=== PATIENT | female | born 1945 | race Caucasian/White ===

== ENCOUNTER 2017-01-04 08:47 | Inpatient (IN) | payer OTHER ==
[~2017-01-04 08:47] MED LIST: BUPIVACAINE 0.5% 30 ML SDV ONE
[2017-01-04] MEDS ORDERED: fentaNYL 250 MCG/5 ML INJ ONE (10:06)
[2017-01-04] MEDS ORDERED: MIDAZOLAM 2 MG/2 ML VIAL ONE (10:06)
[2017-01-04] MEDS ORDERED: PROPOFOL 200 MG/20 ML VIAL ONE (10:07)
[2017-01-04] MEDS ORDERED: LR 1,000 ML IV ONE (11:10)
[2017-01-04] MEDS ORDERED: LIDOCAINE 1% 5 ML SDV ID PRN (11:10)
[2017-01-04] MEDS ORDERED: cefOXitin SODIUM 2 GM in D5W 100 ML IV ONE (12:00)
--- NOTE | 2017-01-04 16:36 | POSTOPPROG ---
Post Op Note Date of Operation: 01/04/17 Surgeon: Kem Portillo Marine Consultant: Dr. Castanon Pre-op Diagnosis: Diverticulitis Post-op Diagnosis: Same, adhesions Procedure: Robotic LAR, Roselyn Inf/Abcess present in the surg proc area at time of surgery?: No Depth: Organ Space EBL: 50-100
[2017-01-04] MEDS ORDERED: fentaNYL 100 MCG/2 ML INJ ONE (16:42)
[2017-01-04] MEDS ORDERED: HYDROmorphONE/DILAUDID 1 MG/ML SYR ONE (16:55)
[2017-01-04] MEDS ORDERED: ONDANSETRON 4 MG/2 ML VIAL ONE ×2 (17:08→17:40)
[2017-01-04] MEDS: HYDROmorphONE/DILAUDID 1 MG/ML SYR IVP PRN ×2 (18:49→21:00)
[2017-01-04] MEDS: LR 1,000 ML IV SCH ×2 (19:30→21:54)
[2017-01-04] MEDS: cefOXitin SODIUM 1 GM in D5W 50 ML IV SCH (20:37)
[2017-01-04] MEDS: ONDANSETRON 4 MG/2 ML VIAL IVP PRN (21:07)
[2017-01-05] MEDS: cefOXitin SODIUM 1 GM in D5W 50 ML IV SCH ×3 (02:30→14:00)
[2017-01-05 05:05] LABS: HEMATOCRIT 30.5 % (38.0-47.0); HEMOGLOBIN 10.1 g/dL (12.6-16.3); MEAN CELL HEMOGLOBIN 30.1 pg (27.9-34.1); MEAN CELL HEMOGLOBIN CONCENTR. 33.1 g/dL (32.4-36.7); MEAN CELL VOLUME 90.8 fL (81.5-99.8); RED BLOOD CELL COUNT 3.36 10^6/uL (4.18-5.33); RED CELL DISTRIBUTION WIDTH 14.9 % (11.5-15.2)
[2017-01-05 05:25] LABS: ALANINE AMINOTRANSFERASE 38 IU/L (9-52); ALKALINE PHOSPHATASE 42 IU/L (38-126); ANION GAP 9 mEq/L (8-16); ASPARTATE AMINOTRANSFERASE 24 IU/L (14-46); BILIRUBIN,TOTAL 1.3 mg/dL (0.1-1.4); CALCIUM 8.3 mg/dL (8.5-10.4); CARBON DIOXIDE 21 mEq/l (22-31); CHLORIDE 107 mEq/L (97-110); CREATININE 1.5 mg/dL (0.6-1.0); GLOMERULAR FILTRATION RATE 34; GLUCOSE 142 mg/dL (70-100); POTASSIUM 5.2 mEq/L (3.5-5.2); SODIUM 137 mEq/L (134-144); TOTAL PROTEIN 4.9 g/dL (6.3-8.2)
[2017-01-05] MEDS: LR 1,000 ML IV SCH ×3 (06:45→23:44)
[2017-01-05] MEDS ORDERED: FLUTICASONE NASAL 120 SPRAYS/16 GM MDI EACHNARE PRN (08:58)
[2017-01-05] MEDS ORDERED: LR 1,000 ML IV ONE (09:02)
--- NOTE | 2017-01-05 09:07 | SOAPPROG ---
SOAP Progress Note Assessment/Plan: Assessment: s/p lap sigmoidectomy, still with low UOP and elevated HR. Cont feldman, bolus patient. Ambulate with assist. Signs/symptoms of concern d/w patient and family, questions answered. Cont NPO for now. Plan: 01/05/17 09:04 Subjective: Patient c/o shoulder pain, improving. Minimal abdominal pain. No N/V, no flatus. Objective: Vital Signs Temp Pulse Resp BP Pulse Ox 36.6 C 87 19 83/51 L 95 01/05/17 08:00 01/05/17 08:00 01/05/17 08:00 01/05/17 08:00 01/05/17 08:00 Laboratory Results 01/05/17 04:32 01/05/17 04:32 01/04/17 01/05/17 01/06/17 05:59 05:59 05:59 Intake Total 4120 511 Output Total 400 75 Balance 3720 436 Alert, NAD Sl tachy but regular Abd soft, inc TTP Inc C/D/I with some ecchymosis R lat ICD10 Worksheet Patient Problems: Problems Problem Status Onset Diverticulitis Acute - ICD10 Problem Qualifiers (1) Diverticulitis Qualifiers: Diverticulitis site: D Diverticulitis bleeding: D Diverticulitis complication: D
[2017-01-05] MEDS: GABAPENTIN 100 MG CAP PO SCH ×2 (09:58→20:16)
--- NOTE | 2017-01-05 12:28 | GOP ---
[f rep st] OPERATIVE REPORT DATE OF OPERATION: 01/04/2017 SURGEON: Finn Portillo MD BLASTER HELPER SURGEON: Jacob Castanon MD, whose presence was requested by surgeon and medically necessary for the safe and timely completion of this case. ANESTHESIA: General endotracheal anesthesia. ANESTHESIOLOGIST: Rod Kang MD. PREOPERATIVE DIAGNOSIS: Diverticulitis. POSTOPERATIVE DIAGNOSIS: Diverticulitis with multiple adhesions. PROCEDURE PERFORMED: 1. Robotic lysis of adhesions. 2. Robotic sigmoid colectomy. FINDINGS: Patient had multiple adhesions from her prior surgery. Chronic diverticular inflammation was identified and excised. ESTIMATED BLOOD LOSS: 50 cc. COMPLICATIONS: None. DRAINS: None. INDICATIONS: This is a 71-year-old female with a history of abdominal pain. Patient had imaging demonstrating diverticulitis. Risks and benefits of procedure were discussed with the patient's family. Their questions were answered. They wish to proceed. DESCRIPTION OF PROCEDURE: The patient was in the supine position initially. After the induction of adequate general endotracheal anesthesia, the patient was moved to the modified lithotomy position. A Lisa catheter was placed and the patient was prepped and draped in the standard surgical fashion. Marcaine 0.5% was injected throughout the infraumbilical area and an 8-mm incision was made. The abdominal wall was elevated and a Veress needle was inserted. After noting proper pressures, the abdomen was insufflated with carbon dioxide. Three more ports were placed, including one 8-mm port in the suprapubic midline and one 13-mm port in the right lower quadrant. These were placed under direct vision after injecting 0.5% Marcaine for local anesthesia. Adhesions were taken down using blunt dissection and a Harmonic scalpel. The white line of Toldt was then divided. Dissection was carried up to the splenic flexure. Next, the splenic flexure was carefully mobilized using blunt dissection and the cautery using the vessel sealer. Good hemostasis was seen in this area. Attention was then turned to the ureter. The adhesions were taken down, and the colon was mobilized medially. The ureter was then identified. It was seen and preserved throughout the remainder of the case. Dissection was then carried down into the pelvis. Once again the sigmoid colon and rectum were mobilized medially using blunt dissection and the cautery. The site for transection was chosen distally. A window was opened in the mesentery using blunt dissection and the cautery. The colon wall was carefully exposed. Once an adequate window had been obtained, an the robotic LEANDER stapler with a blue load was passed. This was fired and the staple line was inspected. Good hemostasis was noted. No other lesions were noted. The mesentery was then divided using the vessel sealer. The site for proximal transection was chosen and the mesentery was continually divided up and to this point. This ensured excellent mobility of the colon. Next a colotomy was made using the vessel sealer device just distal to the proximal resection site. The 25 EEA anvil with the spike insert was inserted through the colotomy and milked proximally. Once the spike was passed the area chosen for transection proximally, this area was transected with the robotic stapler using the blue cartridge. The anvil was then pushed through the proximal site of resection. The spike was removed, and the proximal colon checked for twisting and tension. None was perceived and the 25 EEA stapler was mated to the anvil. The stapler was fired, and the area inspected. Good hemostasis and excellent staple line was noted. There area was then irrigated, and the proximal colon occluded. Air was insufflated via the rectum multiple times without evidence of bubbling. The whole area was then thoroughly irrigated and aspirated. The right lower quadrant incision was then enlarged with a #15 blade after injecting 0.5% Marcaine for local anesthesia. A muscle- splitting incision was used, and an Beka wound protector was placed. The specimen was then withdrawn through the right lower quadrant port site. The abdomen was thoroughly irrigated and aspirated. Good hemostasis was noted throughout. Wounds were thoroughly irrigated and the skin at all sites was closed with 4-0 Monocryl in a subcuticular stitch. The wounds were sterilely dressed. The patient was then returned to the supine position and extubated. The patient was then taken to the PACU in stable condition. /[id number]/MODL MTDD
[2017-01-05] MEDS: HYDROmorphONE/DILAUDID 1 MG/ML SYR IVP PRN ×2 (20:16→23:40)
[2017-01-05] MEDS: CETIRIZINE 10 MG TAB PO SCH (20:16)
[2017-01-05] MEDS: ONDANSETRON 4 MG/2 ML VIAL IVP PRN (23:41)
[2017-01-06] MEDS: HYDROmorphONE/DILAUDID 1 MG/ML SYR IVP PRN ×5 (02:52→20:06)
[2017-01-06] MEDS: ONDANSETRON 4 MG/2 ML VIAL IVP PRN ×5 (02:53→20:06)
[2017-01-06 05:29] LABS: HEMATOCRIT 23.6 % (38.0-47.0); HEMOGLOBIN 7.6 g/dL (12.6-16.3); MEAN CELL HEMOGLOBIN 30.3 pg (27.9-34.1); MEAN CELL HEMOGLOBIN CONCENTR. 32.2 g/dL (32.4-36.7); RED BLOOD CELL COUNT 2.51 10^6/uL (4.18-5.33); RED CELL DISTRIBUTION WIDTH 15.4 % (11.5-15.2)
[2017-01-06 05:37] LABS: ALANINE AMINOTRANSFERASE 40 IU/L (9-52); ALBUMIN 2.7 g/dL (3.5-5.0); ALKALINE PHOSPHATASE 46 IU/L (38-126); ANION GAP 6 mEq/L (8-16); ASPARTATE AMINOTRANSFERASE 22 IU/L (14-46); BILIRUBIN,TOTAL 1.7 mg/dL (0.1-1.4); CALCIUM 8.2 mg/dL (8.5-10.4); CARBON DIOXIDE 24 mEq/l (22-31); CHLORIDE 104 mEq/L (97-110); CREATININE 1.5 mg/dL (0.6-1.0); GLOMERULAR FILTRATION RATE 34; GLUCOSE 111 mg/dL (70-100); POTASSIUM 4.6 mEq/L (3.5-5.2); SODIUM 134 mEq/L (134-144); TOTAL PROTEIN 4.8 g/dL (6.3-8.2)
[2017-01-06] MEDS: GABAPENTIN 100 MG CAP PO SCH ×2 (07:39→20:07)
[2017-01-06] MEDS: METOPROLOL TARTRATE 25 MG TAB PO SCH ×2 (07:39→20:07)
--- NOTE | 2017-01-06 12:36 | SOAPPROG ---
SOAP Progress Note Assessment/Plan: Assessment: s/p lap sigmoidectomy, now with significant anemia. As she is symptomatic, rec transfusion. Will recheck H&H after. Cont NPO for now, may start clears later if feeling better. Amb, IS. Plan: 01/05/17 09:04 01/06/17 12:35 Subjective: Patient c/o dizziness with sitting up/standing. Some nausea earlier, now improved. No flatus/BM. Objective: Vital Signs Temp Pulse Resp BP Pulse Ox 37.9 C 116 H 16 110/46 L 92 01/06/17 07:19 01/06/17 07:19 01/06/17 07:19 01/06/17 07:19 01/06/17 07:19 Laboratory Results 01/06/17 04:30 01/06/17 04:30 01/05/17 01/06/17 01/07/17 05:59 05:59 05:59 Intake Total 4120 511 Output Total 400 450 Balance 3720 61 Alert, NAD Tachy but reg Abd soft, inc TTP Inc C/D/I, some ecchymosis RLQ inc ICD10 Worksheet Patient Problems: Problems Problem Status Onset Diverticulitis Acute - ICD10 Problem Qualifiers (1) Diverticulitis Qualifiers: Diverticulitis site: D Diverticulitis bleeding: D Diverticulitis complication: D
[2017-01-06] MEDS: LR 1,000 ML IV SCH (12:38)
[2017-01-06 14:29] LABS: HEMOGLOBIN 9.3 g/dL (12.6-16.3)
[2017-01-06] MEDS: OXYCODONE/APAP 5/325 TAB PO PRN ×3 (16:11→20:07)
[2017-01-06] MEDS: CETIRIZINE 10 MG TAB PO SCH (20:07)
[2017-01-07] MEDS: LR 1,000 ML IV SCH (01:43)
[2017-01-07] MEDS: OXYCODONE/APAP 5/325 TAB PO PRN ×2 (01:43→05:42)
[2017-01-07] MEDS: HYDROmorphONE/DILAUDID 1 MG/ML SYR IVP PRN ×2 (04:55→07:26)
[2017-01-07 04:57] LABS: HEMATOCRIT 26.6 % (38.0-47.0); HEMOGLOBIN 8.7 g/dL (12.6-16.3); MEAN CELL HEMOGLOBIN 30.3 pg (27.9-34.1); MEAN CELL HEMOGLOBIN CONCENTR. 32.7 g/dL (32.4-36.7); MEAN CELL VOLUME 92.7 fL (81.5-99.8); RED BLOOD CELL COUNT 2.87 10^6/uL (4.18-5.33); RED CELL DISTRIBUTION WIDTH 15.2 % (11.5-15.2)
[2017-01-07 05:11] LABS: ALANINE AMINOTRANSFERASE 35 IU/L (9-52); ALBUMIN 2.6 g/dL (3.5-5.0); ALKALINE PHOSPHATASE 50 IU/L (38-126); ANION GAP 6 mEq/L (8-16); ASPARTATE AMINOTRANSFERASE 22 IU/L (14-46); BILIRUBIN,TOTAL 2.6 mg/dL (0.1-1.4); CALCIUM 8.3 mg/dL (8.5-10.4); CARBON DIOXIDE 24 mEq/l (22-31); CHLORIDE 104 mEq/L (97-110); CREATININE 1.1 mg/dL (0.6-1.0); GLOMERULAR FILTRATION RATE 49; GLUCOSE 110 mg/dL (70-100); POTASSIUM 4.7 mEq/L (3.5-5.2); SODIUM 134 mEq/L (134-144); TOTAL PROTEIN 4.9 g/dL (6.3-8.2)
[2017-01-07 05:23] LABS: BILIRUBIN-CONJUGATED 0.5 mg/dL (0.0-0.5); BILIRUBIN-UNCONJUGATED 2.1 mg/dL (0.0-1.1)
[2017-01-07] MEDS: ONDANSETRON 4 MG/2 ML VIAL IVP PRN ×2 (05:45→11:08)
[2017-01-07] MEDS: METOPROLOL TARTRATE 25 MG TAB PO SCH ×2 (07:27→22:02)
[2017-01-07] MEDS: GABAPENTIN 100 MG CAP PO SCH ×2 (07:27→22:02)
--- NOTE | 2017-01-07 08:37 | SOAPPROG ---
SOAP Progress Note Assessment/Plan: Assessment: s/p lap sigmoidectomy, objectively improving. Due to increased pain will check 3 way, may require CT if no improvement. D/w patient and , questions answered. Plan: 01/05/17 09:04 01/06/17 12:35 01/07/17 08:35 Subjective: Patient with sudden onset of severe LLQ pain this AM. Pain now improved but persists. Non N/V. Objective: Vital Signs Temp Pulse Resp BP Pulse Ox 36.8 C 107 H 20 94/73 L 90 L 01/07/17 07:35 01/07/17 07:35 01/07/17 07:35 01/07/17 07:35 01/07/17 07:35 Laboratory Results 01/07/17 04:20 01/07/17 04:20 01/06/17 01/07/17 01/08/17 05:59 05:59 05:59 Intake Total 511 1200 Output Total 450 650 Balance 61 550 Drowsy but responsive and appropriate RRR Abd soft, min TTP RLQ, no rebound/guarding Inc without erythema. ICD10 Worksheet Patient Problems: Problems Problem Status Onset Diverticulitis Acute - ICD10 Problem Qualifiers (1) Diverticulitis Qualifiers: Diverticulitis site: D Diverticulitis bleeding: D Diverticulitis complication: D
[2017-01-07] MEDS ORDERED: LR 1,000 ML IV ONE (10:04)
[2017-01-07] MEDS ORDERED: KETOROLAC 15 MG/1 ML SDV IVP SCH ×2 (10:30→18:00)
[2017-01-07] MEDS ORDERED: IOPAMIDOL (ISOVUE-300) 100 ML BTL IV ONE (15:13)
[2017-01-07 16:48] LABS: BASE EXCESS -4.6 mEq/L (-2.5-2.5); BICARBONATE 20 mEq/L (22-26); MEASURED OXYGEN SATURATION 93 % (92-95); TCO2 21 mEq/L (23-27)
[2017-01-07 16:56] LABS: PCO2 44 mmHg (34-38); PO2 88 mmHg (65-75)
[2017-01-07 17:00] LABS: HEMATOCRIT 30.9 % (38.0-47.0); HEMOGLOBIN 9.9 g/dL (12.6-16.3); MEAN CELL HEMOGLOBIN 30.2 pg (27.9-34.1); MEAN CELL VOLUME 94.2 fL (81.5-99.8); RED BLOOD CELL COUNT 3.28 10^6/uL (4.18-5.33); RED CELL DISTRIBUTION WIDTH 15.1 % (11.5-15.2)
[2017-01-07 17:06] LABS: ANION GAP 7 mEq/L (8-16); CALCIUM 8.4 mg/dL (8.5-10.4); CARBON DIOXIDE 23 mEq/l (22-31); CHLORIDE 102 mEq/L (97-110); CREATININE 1.7 mg/dL (0.6-1.0); GLOMERULAR FILTRATION RATE 30; GLUCOSE 96 mg/dL (70-100); POTASSIUM 5.3 mEq/L (3.5-5.2); SODIUM 132 mEq/L (134-144); SPECIMEN HEMOLYSIS 108
[2017-01-07] MEDS ORDERED: BUPIVACAINE 0.5% 30 ML SDV ONE (17:12)
[2017-01-07 17:31] LABS: INR 1.48 (0.83-1.16); PROTIME(PATIENT) 17.9 SEC (12.0-15.0)
[2017-01-07 17:32] LABS: APTT 32.2 SEC (23.0-38.0)
[2017-01-07] MEDS ORDERED: DEXAMETHASONE 4 MG/ML VIAL ONE (17:40)
[2017-01-07] MEDS ORDERED: LIDOCAINE 2% 5 ML SDV ONE (17:40)
[2017-01-07] MEDS ORDERED: ROCURONIUM 100 MG/10 ML VIAL ONE (17:40)
[2017-01-07] MEDS ORDERED: fentaNYL 100 MCG/2 ML INJ ONE (17:41)
[2017-01-07] MEDS ORDERED: PROPOFOL 200 MG/20 ML VIAL ONE (17:41)
[2017-01-07] MEDS ORDERED: ALBUMIN 5% 250 ML BOTTLE IV ONE ×2 (18:19→19:52)
[2017-01-07] MEDS ORDERED: cefOXitin SODIUM 2 GM in D5W 100 ML IV ONE (18:30)
[2017-01-07] MEDS ORDERED: PROPOFOL/EMULSION 500 MG/50 ML BOTTLE IV ONE (20:20)
[2017-01-07] MEDS ORDERED: FUROSEMIDE 20 MG/2 ML VIAL ONE (20:49)
--- NOTE | 2017-01-07 21:23 | POSTOPPROG ---
Post Op Note Date of Operation: 01/07/17 Surgeon: Kem Portillo Rn Endoscopy: Dr. Castanon Anesthesiologist: Dr. Sesay Anesthesia: GET(General Endotracheal) Pre-op Diagnosis: Hematoma, perforation Post-op Diagnosis: same Procedure: Dx laparoscopy, exploratory laparotomy, evacuation hematoma, ileostomy Inf/Abcess present in the surg proc area at time of surgery?: Yes Depth: Organ Space EBL: 500-1000
[2017-01-07] MEDS: ERTAPENEM 1 GM in NS 100 ML IV SCH (21:44)
[2017-01-07] MEDS: CETIRIZINE 10 MG TAB PO SCH (21:58)
[2017-01-07 22:23] LABS: BASE EXCESS -6.6 mEq/L (-2.5-2.5); BICARBONATE 19 mEq/L (22-26); MEASURED OXYGEN SATURATION 94 % (92-95); PCO2 41 mmHg (34-38); PO2 81 mmHg (65-75); TCO2 20 mEq/L (23-27)
[2017-01-07 22:25] LABS: ASSIST CONTROL YES; END TIDAL CO2 31; O2 CONCENTRATIION 60 % (0-100); P/F RATIO 135 RATIO
[2017-01-07 22:26] LABS: TOTAL RATE 18
[2017-01-07] MEDS ORDERED: fentaNYL/NACL 100 ML IV SCH (22:46)
[2017-01-08] MEDS: PROPOFOL/EMULSION 100 ML IV SCH ×2 (00:10→08:32)
[2017-01-08] MEDS: NS 1,000 ML IV SCH (01:00)
[2017-01-08 05:00] LABS: ADD MORPH? NO; ADD SCAN? YES; ATYPICAL LYMPHOCYTE FLAG 0 (0-99); FRAGMENT RBC FLAG 0 (0-99); HEMATOCRIT 23.7 % (38.0-47.0); HEMOGLOBIN 7.7 g/dL (12.6-16.3); LIPEMIA HEMOLYSIS FLAG 80 (0-99); MEAN CELL HEMOGLOBIN 30.8 pg (27.9-34.1); MEAN CELL HEMOGLOBIN CONCENTR. 32.5 g/dL (32.4-36.7); MEAN CELL VOLUME 94.8 fL (81.5-99.8); MEAN PLATELET VOLUME 10.6 fL (8.7-11.7); PLATELET CLUMPS FLAG 0 (0-99); PLATELET COUNT 201 10^3/uL (150-400); RED CELL DISTRIBUTION WIDTH 15.2 % (11.5-15.2)
[2017-01-08 05:12] LABS: ALANINE AMINOTRANSFERASE 61 IU/L (9-52); ALBUMIN 2.5 g/dL (3.5-5.0); ALKALINE PHOSPHATASE 85 IU/L (38-126); ANION GAP 9 mEq/L (8-16); ASPARTATE AMINOTRANSFERASE 65 IU/L (14-46); BILIRUBIN,TOTAL 3.9 mg/dL (0.1-1.4); CALCIUM 7.8 mg/dL (8.5-10.4); CARBON DIOXIDE 21 mEq/l (22-31); CHLORIDE 108 mEq/L (97-110); CREATININE 1.8 mg/dL (0.6-1.0); GLOMERULAR FILTRATION RATE 28; GLUCOSE 92 mg/dL (70-100); SODIUM 138 mEq/L (134-144); TOTAL PROTEIN 4.6 g/dL (6.3-8.2)
[2017-01-08 05:18] LABS: BILIRUBIN-CONJUGATED 2.1 mg/dL (0.0-0.5); BILIRUBIN-UNCONJUGATED 1.8 mg/dL (0.0-1.1)
[2017-01-08 05:22] LABS: LEFT SHIFT FLG 300 (0-99)
[2017-01-08 05:59] LABS: BASE EXCESS -5.1 mEq/L (-2.5-2.5); BICARBONATE 19 mEq/L (22-26); MEASURED OXYGEN SATURATION 95 % (92-95); PCO2 35 mmHg (34-38); PO2 76 mmHg (65-75); TCO2 20 mEq/L (23-27)
[2017-01-08 06:00] LABS: ASSIST CONTROL YES; END TIDAL CO2 30; O2 CONCENTRATIION 50 % (0-100); P/F RATIO 152 RATIO; TOTAL RATE 19
[2017-01-08 07:27] LABS: ADD DIFF? YES; SCAN POSITIVE
[2017-01-08 07:35] LABS: GIANT PLATELETS PRESENT; TOXIC VACUOLIZATION PRESENT
[2017-01-08 07:37] LABS: LARGE PLATELETS PRESENT
[2017-01-08 07:38] LABS: MICROCYTES 1+; PLATELET ESTIMATE ADEQUATE (ADEQ); POLYCHROMASIA 1+; TOXIC GRANULATION PRESENT
[2017-01-08] MEDS: ERTAPENEM 1 GM in NS 100 ML IV SCH (08:34)
--- NOTE | 2017-01-08 09:50 | SOAPPROG ---
SOAP Progress Note Assessment/Plan: Assessment: S/P ex-lap, ileostomy, evacuation of large hematoma. Patient with severe acute blood loss/anemia, xfusion this AM. Acute renal injury, cont hydration. Appreciate pulmonary input and vent management; hope to wean sedation and extubate today. Discussed prognosis with family at length, questions answered. Plan: 01/05/17 09:04 01/06/17 12:35 01/07/17 08:35 01/08/17 09:46 01/08/17 09:50 Subjective: No events overnight. Objective: Vital Signs Temp Pulse Resp BP Pulse Ox 38.0 C 109 H 19 124/50 H 96 01/08/17 06:00 01/08/17 06:00 01/08/17 06:00 01/08/17 06:00 01/08/17 06:00 Microbiology 01/07/17 19:45 Gram Stain - Final Peritoneal Fluid - Eswab Laboratory Results 01/08/17 04:52 01/08/17 04:52 01/07/17 01/08/17 01/09/17 05:59 05:59 05:59 Intake Total 1200 1166 Output Total 650 705 Balance 550 461 PT 17.9 SEC (12.0-15.0) H 01/07/17 17:10 INR 1.48 (0.83-1.16) H 01/07/17 17:10 Intubated, sedated Tachycardic Abd distended Drsg C/D/I FRANK serosang ICD10 Worksheet Patient Problems: Problems Problem Status Onset Diverticulitis Acute - ICD10 Problem Qualifiers (1) Diverticulitis Qualifiers: Diverticulitis site: D Diverticulitis bleeding: D Diverticulitis complication: D
[2017-01-08] MEDS ORDERED: METOPROLOL TARTRATE 5 MG/5 ML INJ ONE (11:33)
--- NOTE | 2017-01-08 11:40 | CPEKG ---
Heart Rate: 175 RR Interval: 343 QRSD Interval: 88 QT Interval: 231 QTC Interval: 394 QRS [place]: 22 T Wave [place]: 177 EKG Severity - ABNORMAL ECG - EKG Impression: ATRIAL FIBRILLATION WITH RAPID V-RATE EKG Impression: NONSPECIFIC T ABNORMALITIES, LATERAL LEADS Electronically Signed By: Angel Villalba 09-Jan-2017 10:41:46
[2017-01-08] MEDS ORDERED: AMIODARONE HCL 150 MG/100 ML BAG (1.5 MG/ML) IV ONE (11:48)
[2017-01-08] MEDS: GABAPENTIN 100 MG CAP PO SCH ×2 (12:22→21:42)
[2017-01-08] MEDS: METOPROLOL TARTRATE 25 MG TAB PO SCH ×2 (12:22→21:12)
[2017-01-08] MEDS ORDERED: AMIODARONE A.FIB-6HR INFSN (ORDER 2/3) IV ONE (12:30)
[2017-01-08] MEDS ORDERED: AMIODARONE A.FIB-18HR INFSN (ORDER 3/3) IV ONE ×3 (12:30→22:30)
[2017-01-08] MEDS ORDERED: AMIODARONE A.FIB-LOAD DOSE(ORDER 1/3) IV ONE (12:30)
[2017-01-08] MEDS ORDERED: DILTIAZEM 25 MG/5 ML VIAL IVP ONE (12:48)
[2017-01-08] MEDS ORDERED: AMIODARONE HCL 100 ML IV ONE (14:26)
--- NOTE | 2017-01-08 14:35 | GCON ---
[f rep st] CONSULTATION CRITICAL CARE CONSULT HISTORY OF PRESENT ILLNESS: The patient is a 71-year-old female, who was admitted yesterday after h aving difficulty with abdominal pain and was found to have diverticulitis on imaging. She was taken to the operating room by Dr. Portillo who performed a robotic sigmoid hemicolectomy. The surgery itse lf was fairly unremarkable, and she was transferred to the floor where she remained relatively stabl e; however, she developed increasing abdominal pain and somnolence and borderline blood pressure and was brought to the ICU for further monitoring. A CT scan of her abdomen showed that she had anastom otic leak as well as blood in the low pelvis and so she went back to the operating room where she shetty d an open laparoscopy and washout of her abdomen, bleeding site was controlled and an ileostomy was performed. She was brought to the intensive care unit on the ventilator overnight and extubated this morning. She did well post extubation but subsequently developed atrial fibrillation with a rapid v entricular response up to a rate of about 200. She was given 5 mg of IV metoprolol with only modest effect. There was no drop in blood pressure. I started an amiodarone drip after an EKG confirmed atr ial fibrillation and she did receive 10 mg of IV diltiazem as well. REVIEW OF SYSTEMS: Otherwise negative. PAST MEDICAL HISTORY: Includes: 1. Possible episodes of AFib in the past. She has had previous surgeries where she had episodic Diogenes b which did not last and she was not on chronic anticoagulation for that. 2. She has also a known history of hypertension. 3. Gastroesophageal reflux disease. 4. Diverticulitis. 5. Ureteral obstruction, thought to be due to a previous surgery that she underwent stent placement for, which subsequently was removed. 6. She also has seasonal allergies. 7. She has had tongue cancer in the past. 8. Degenerative joint disease with chronic pain. 9. She has peripheral neuropathy of uncertain etiology as well but no known sleep apnea and had a s leep study in the past. PAST SURGICAL HISTORY: Includes the colectomy as described above. She has also had a bladder suspen jose in the past, rectocele repair, total hysterectomy, subsequent bilateral salpingo-oophorectomy a s well as a tongue surgery. OUTPATIENT MEDICATIONS: Include only really metoprolol, Flonase, and Zyrtec, as well as a number of dietary supplements. ALLERGIES: Unknown at this time. CURRENT MEDICATIONS: Include amiodarone, Zyrtec, ertapenem, fentanyl, Flonase, gabapentin, Zofran a nd normal saline. PHYSICAL EXAMINATION: VITAL SIGNS: She currently has a blood pressure of 130/40, heart rate is abou t 145 and irregular, respirations 29, oxygen saturation 95% on 10 L. GENERAL: She is an obese female , in modest distress, but is able to speak in full sentences and answer questions appropriately and follow commands. HEENT: Her pupils are equally round and reactive to light. Nonicteric and noninject ed. Mucous membranes are moist, without erythema or exudate. NECK: Supple, without adenopathy or jug ular vein distention. RESPIRATORY: Breath sounds are diminished but clear to auscultation bilaterall y. HEART: Irregularly irregular without obvious murmur. ABDOMEN: Diffusely tender but no guarding or rebound. Her dressings are clean and dry, without evidence of obvious bleeding. EXTREMITIES: Show n o clubbing, cyanosis, or edema. NEUROLOGIC: Nonfocal. SKIN: Otherwise clean and dry, without rash. OBJECTIVE DATA: Includes a white count of 7.7, this is down from 18 two days ago. Hematocrit was 23 .7, which is down from 30 yesterday. Her sodium is 138, potassium 5.0, chloride 108, bicarb 21, BUN was 32, creatinine was 1.8 and rising. LFTs were mildly elevated at 65 and 61, albumin was 2.5. ASSESSMENT/PLAN: 1. New-onset atrial fibrillation. According to her , she may have had these episodes in the past but no known coronary disease, and she has never had a cardiac cath. She is on amiodarone right now. Her rate is slowly coming down. Her blood pressure remains stable. I do not feel she needs urg ent anticoagulation at this time. If things do not improve in the very near future, we may consider cardiology consult as well. An echocardiogram is pending as is a troponin and we will proceed accord ingly. 2. Acute kidney injury. This is likely related to peritonitis related to her surgery, and she is ma domen[place] adequate urine at this time. She is getting some IV fluids. We will watch this closely and may need further intervention. 3. Anemia. I think this is likely dilutional and there is no current active bleeding, but given the atrial fibrillation, at this time, I think a unit of blood is probably warranted. We will continue to follow this closely. 4. Peritonitis related to her anastomotic leak after hemicolectomy. She is getting ertapenem now. Betsy williamson could consider antifungal coverage. Her drop in white count is generally a sign of improvement. Bonita williamson has had a fever today which is not surprising and will continue the ertapenem for now. 5. Respiratory failure. She has no known lung disease and was able to extubate this morning after a ctive management of the ventilator. 6. A total of about 60 minutes of critical care time was required for this critically ill and compl ex patient with multiorgan failure whose risk of imminent decline is quite high at this moment. /[id number]/MODL
[2017-01-08 15:44] LABS: TROPONIN I 1.64 ng/mL (0-0.034)
[2017-01-08] MEDS ORDERED: ESMOLOL/NACL 250 ML IV SCH (16:30)
--- NOTE | 2017-01-08 17:55 | ECHO ---
[id number] + + [address] : : [place] [address] : : [phone] + + Adult Echocardiographic Report + -+ :Name: LOUIS JUSTICE NStudy Date: 01/08/2017 01:09 PM : : Hospital Admission Number: [id number] : :: 1945 Gender: Female Height: 69 in : :Age: 71 yrs Race: WH Weight: 256 lb : :Reason For Study: Eval LV Fx : : BSA: 2.3 meters 2: :History: Post Abdominal surgery, New onset A-Fib : + -+ MMode/2D Measurements \T\ Calculations IVSd: 1.0 cm LVIDd: 3.7 cm FS: 33.9 % Ao root diam: 3.2 cm LVPWd: 0.93 cm LVIDs: 2.5 cm EDV(Teich): 58.5 ml ACS: 2.0 cm ESV(Teich): 21.2 ml LA dimension: 2.4 cm EF(Teich): 63.7 % Normal Measurement Values: + + :LVIDd (3.5-5.7cm) IVSd (0.6-1.1cm) LVPWd (0.6-1.1cm) Aortic Root (2.0-3.7cm)Left Atrium (1.5-4.0cm): :LV Vol(d) (76-115ml) LV Vol(s) (29-48ml) Ejec Fraction (50-65%)PV Enrico (0.6- 1.2m/s) TV Enrico (0.4-1.0m/s) : :MV E Enrico (0.8-1.0m/s)MV A Enrico (0.3-1.0m/s)LVOT Enrico (0.7-1.2m/s) Asc Ao Enrico ( 0.9-1.8m/s) : + + Doppler Measurements \T\ Calculations MV E max enrico: Ao V2 max: LV V1 max: PA V2 max: 30.5 cm/sec 137.1 cm/sec 78.5 cm/sec 103.2 cm/sec Ao max PG: LV V1 max PG: PA max P.5 mmHg 2.5 mmHg 4.3 mmHg TR max enrico: 344.8 cm/sec TR max P.5 mmHg RAP systole: 5.0 mmHg RVSP(TR): 52.5 mmHg Left Ventricle The left ventricle is normal in size. There is mild concentric left ventricular hypertrophy. The left ventricular ejection fraction is normal. The rhythm is atrial fibrillation at 140 bpm. Ejection Fraction = 65%. Right Ventricle The right ventricle is normal in size and function. The right ventricular systolic function is normal. Atria The left atrium is mildly dilated. The right atrium is mildly dilated. Mitral Valve There is mild focal calcification on the anterior and posterior mitral valve leaflet. There is trace to mild mitral regurgitation. Tricuspid Valve There is mild tricuspid regurgitation. Right ventricular systolic pressure is 52mmHg. There is Doppler evidence for mild to moderate pulmonary hypertension. Aortic Valve The aortic valve is trileaflet. There is no aortic stenosis. There is no aortic insufficiency. Pulmonic Valve The pulmonic valve is not well visualized. There is no pulmonic valvular regurgitation. Great Vessels The aortic root is normal size. Pericardium/Pleural There is no pericardial effusion. Conclusion A complete two-dimensional transthoracic echocardiogram was performed (2D, M-mode, Doppler and color flow Doppler). (1) Left ventricular systolic ejection fraction was normal (65%) - normal wall motion - patient was in atrial fibrillation with RVR over the course of this study (2) Mild concentric left ventricular hypertrophy (3) Diastolic dysfunction was abnormal given atrial fibrillation (4) Normal right ventricular size and function (5) Mild biatrial dilation (6) Trace/mild mitral regurgitation with mild calcification to the leaflets noted (7) Trileaflet aortic valve without sclerosis or appreciable insufficiency (8) Mild tricuspid regurgitation - RVSP was estimated to be 50-55 mm Hg (9) Poor visualization of the pulmonic valve (10) No comparison echocardiograms Final Reading Physician: Tom Landon signed on 01/08/2017 05:53 PM Ordering Physician: Jenaro Zamora Performed By: Jason Cho, CS
--- NOTE | 2017-01-08 18:10 | PDCARCONS ---
Cardiology Consult Reason for Consult: atrial fibrillation Chief Complaint: management of atrial fibrillation Requesting Physician: Noah History of Present Illness: 71-year-old female history of paroxysmal atrial fibrillation admitted to the hospital the with abdominal pain. She was found to have diverticulitis. Patient underwent laparoscopic surgery. Patient subsequently was found to have an anastomotic leak and underwent an open ileostomy and washout of the abdomen. After extubation today the patient developed the onset of rapid atrial fibrillation. I am asked to comment on management. She has a history of atrial fibrillation. This is her 3rd known episode. This is felt to be lone atrial fibrillation without history of valvular heart disease, coronary artery disease. She has a longstanding history of hypertension. She has taken beta blockers for this with good control. 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 This evening on my arrival she is accompanied by her and 2 sons. She is unable to give a history as she remains obtunded. She has received 2 boluses of amiodarone as well as a trial of esmolol. medications as reviewed from the computer Medications Generic Name Dose Route Start Last Admin Trade Name Freq PRN Reason Stop Dose Admin Gabapentin 100 mg 01/05/17 09:00 01/08/17 12:22 Neurontin PO 07/04/17 08:59 Not Given BID ALECIA Metoprolol Tartrate 12.5 mg 01/06/17 09:00 01/08/17 12:22 Lopressor PO 07/05/17 08:59 Not Given BID ALECIA Amiodarone HCl 200 mls @ 33.333 mls/hr 01/08/17 12:30 01/08/17 12:21 Amiodarone Hcl IV 01/08/17 18:29 200 mls ONCE ONE Protocol Cetirizine HCl 10 mg 01/05/17 21:00 01/07/17 21:58 Zyrtec PO 07/04/17 20:59 Not Given HS ALECIA Ertapenem 1 gm/ Sodium 100 mls @ 200 mls/hr 01/07/17 21:30 01/08/17 08:34 Chloride IV 02/06/17 21:29 100 mls DAILY ALECIA Protocol Esmolol HCl/Sodium Chloride 250 mls @ 0 mls/hr 01/08/17 16:30 01/08/17 16:45 Brevibloc 10 Mg/Ml Premix IV 07/07/17 16:29 250 mls CONT [facility] Protocol Titrate Fentanyl/Sodium Chloride 100 mls @ 0 mls/hr 01/07/17 22:46 01/07/17 22:52 Fentanyl 10 Mcg/Ml (Premix) IV 01/17/17 22:45 100 mls CONT [facility] Protocol Per Protocol Fluticasone Propionate 1 sprays 01/05/17 08:58 Flonase Nasal Jet EACHNARE 07/04/17 08:57 DAILY PRN CONGESTION History Information - Allergies/Home Medication List Allergies/Adverse Reactions: No Known Allergies Allergy (Verified 12/22/16 14:33) Home Medications: Aspirin [Aspirin 81mg (*)] 81 mg PO DAILY 01/04/17 [Last Taken 12/28/16] Calcium [HI-LAM] 1,000 mg PO DAILY 01/04/17 [Last Taken 12/28/16] Cetirizine [ZyrTEC 10 mg (*)] 10 mg PO HS 01/04/17 [Last Taken 01/02/17] Cholecalciferol Vit D3 [Vitamin D3 (*)] 1,000 units PO BID 01/04/17 [Last Taken 12/28/16] Cyanocobalamin [Vitamin B12 (*)] 1,000 mcg PO DAILY 01/04/17 [Last Taken ] Fluticasone Nasal [Flonase Nasal Jet (RX)] 1 sprays EACHNARE DAILY PRN [Last Taken Unknown] Gabapentin [Neurontin 100 MG (*)] 100 mg PO BID 01/04/17 [Last Taken 01/04/17] Herbals/Supplements -Info Only 1 ea PO DAILY 01/04/17 [Last Taken Unknown] Magnesium Oxide [Magnesium Oxide 500 mg] 500 mg PO DAILY 01/04/17 [Last Taken ] Metoprolol Tartrate [Lopressor 25 mg (*)] 12.5 mg PO BID 01/04/17 [Last Taken ] [place]ama-3 Fatty Acids [Fish Oil 1000 mg (*)] 2,000 mg PO DAILY 01/04/17 [Last Taken 12/28/16] Ranitidine HCl 150 mg PO DAILY PRN 01/04/17 [Last Taken Unknown] Tears/Dextran 70/Hypromellose [Natural Balance Tears (*)] 1 drop EACHEYE DAILY PRN 01/04/17 [Last Taken Unknown] Vitamin B Complex Vit C No.4 [Super B Complex] 150 mg PO DAILY 01/04/17 [Last Taken 12/28/16] I have personally reviewed and updated: family history, medical history, social history, surgical history Past Medical History: History obtained from patient's family and old records - Past Medical History atrial fibrillation, hypertension - Family History Positive for: non-pertinent ( sedentary lifestyle) - Social History Smoking Status: Never smoked Cardiac History - Cardiac History Cardiac Risk Factors: hypertension (>140/90) Age in Years: [age] Sex: Female Congestive Heart Failure History: No Hypertension History: Yes Stroke/TIA/Thromboembolism History: No Vascular Disease History: No Diabetes Mellitus: No [id number] Score: 5y Physical Exam Temp Pulse Resp BP Pulse Ox 39.2 C H 148 H 29 H 107/51 L 94 01/08/17 12:00 01/08/17 15:00 01/08/17 15:00 01/08/17 15:00 01/08/17 15:00 O2 (L/minute) 9 FIO2 (%) 45 Constitutional: obese, other Eyes: anicteric sclera Ears, Nose, Mouth, Throat: dry mucous membranes, other Cardiovascular: irregularly irregular Respiratory: reduced air movement, rhonchi Gastrointestinal: distension, other ( postoperative surgical dressing in place, ileostomy) Skin: warm, No rash Neurologic: other ( obtunded) Lymph, Heme, Immunologic: no cervical LAD, no supraclavicular LAD Lab and Imaging 01/08/17 04:52 01/08/17 04:52 WBC 7.75 10^3/uL (3.80-9.50) 01/08/17 04:52 RBC 2.50 10^6/uL (4.18-5.33) L 01/08/17 04:52 Hgb 7.7 g/dL (12.6-16.3) L 01/08/17 04:52 POC Hgb 10.2 gm/dL (12.3-15.9) L 01/07/17 15:58 Hct 23.7 % (38.0-47.0) L D 01/08/17 04:52 POC Hct 30 % (35.5-47.5) L 01/07/17 15:58 MCV 94.8 fL (81.5-99.8) 01/08/17 04:52 MCH 30.8 pg (27.9-34.1) 01/08/17 04:52 MCHC 32.5 g/dL (32.4-36.7) 01/08/17 04:52 RDW 15.2 % (11.5-15.2) 01/08/17 04:52 Plt Count 201 10^3/uL (150-400) 01/08/17 04:52 MPV 10.6 fL (8.7-11.7) 01/08/17 04:52 Neut % (Auto) Not Reported 01/08/17 04:52 Lymph % (Auto) Not Reported 01/08/17 04:52 [place] % (Auto) Not Reported 01/08/17 04:52 Eos % (Auto) Not Reported 01/08/17 04:52 Baso % (Auto) Not Reported 01/08/17 04:52 Nucleat RBC Rel Count 0.0 % (0.0-0.2) 01/08/17 04:52 Absolute Neuts (auto) Not Reported 01/08/17 04:52 Absolute Lymphs (auto) Not Reported 01/08/17 04:52 Absolute Monos (auto) Not Reported 01/08/17 04:52 Absolute Eos (auto) Not Reported 01/08/17 04:52 Absolute Basos (auto) Not Reported 01/08/17 04:52 Absolute Nucleated RBC 0.00 10^3/uL (0-0.01) 01/08/17 04:52 Immature Gran % Not Reported 01/08/17 04:52 Seg Neutrophils % 12 % 01/08/17 04:52 Band Neutrophils % 64 % 01/08/17 04:52 Lymphocytes % 7 % 01/08/17 04:52 Monocytes % 9 % 01/08/17 04:52 Metamyelocytes % 8 % 01/08/17 04:52 Immature Gran # Not Reported 01/08/17 04:52 Absolute Seg Neuts 0.93 10^/uL (1.70-6.50) L 01/08/17 04:52 Absolute Band Neuts 4.96 10^3/uL (0.00-0.70) H 01/08/17 04:52 Absolute Lymphocytes 0.54 10^3/uL (1.00-3.00) L 01/08/17 04:52 Absolute Monocytes 0.70 10^3/uL (0.30-0.80) 01/08/17 04:52 Absolute Metamyelocyte 0.62 10^3/mL (0.00-0.00) H 01/08/17 04:52 Toxic Granulation PRESENT H 01/08/17 04:52 Toxic Vacuolation PRESENT H 01/08/17 04:52 Dohle Bodies PRESENT H 01/08/17 04:52 Platelet Estimate ADEQUATE (ADEQ) 01/08/17 04:52 Large Platelets PRESENT H 01/08/17 04:52 Giant Platelets PRESENT H 01/08/17 04:52 Polychromasia 1+ H 01/08/17 04:52 Microcytic Cells 1+ H 01/08/17 04:52 PT 17.9 SEC (12.0-15.0) H 01/07/17 17:10 INR 1.48 (0.83-1.16) H 01/07/17 17:10 APTT 32.2 SEC (23.0-38.0) 01/07/17 17:10 Puncture Site RIGHT RADIAL 01/08/17 05:51 Patient Temperature 36.7 DEGREES 01/08/17 05:51 pCO2 35 mmHg (34-38) 01/08/17 05:51 pO2 76 mmHg (65-75) H 01/08/17 05:51 Total CO2 20 mEq/L (23-27) L 01/08/17 05:51 ABG pH 7.36 (7.35-7.45) 01/08/17 05:51 ABG PO2/FiO2 Ratio 152 RATIO 01/08/17 05:51 ABG O2 Saturation 95 % (92-95) 01/08/17 05:51 ABG Base Excess -5.1 mEq/L (-2.5-2.5) L 01/08/17 05:51 ABG Lactic Acid 3.2 mmol/L (0.5-1.6) H 01/07/17 16:38 VBG Lactic Acid 3.5 mmol/L (0.7-2.1) H 01/07/17 16:10 Total O2 Concentration 3.0 LITERS 01/07/17 16:38 O2 Concentration % 50 % (0-100) 01/08/17 05:51 Respiration Rate 19 01/08/17 05:51 Set Respiration Rate 15 01/08/17 05:51 Assist Control YES 01/08/17 05:51 Tidal Volume 600 01/08/17 05:51 End Tidal CO2 30 01/08/17 05:51 PEEP 5 01/08/17 05:51 POC Sodium 139 mEq/L (134-144) 01/07/17 15:58 Sodium 138 mEq/L (134-144) 01/08/17 04:52 POC Potassium 4.9 mEq/L (3.3-5.0) 01/07/17 15:58 Potassium 5.0 mEq/L (3.5-5.2) 01/08/17 04:52 POC Chloride 103 mEq/L (96-108) 01/07/17 15:58 Chloride 108 mEq/L (97-110) 01/08/17 04:52 Carbon Dioxide 21 mEq/l (22-31) L 01/08/17 04:52 Bicarbonate 19 mEq/L (22-26) L 01/08/17 05:51 Anion Gap 9 mEq/L (8-16) 01/08/17 04:52 POC BUN 28 mg/dL (7-23) H 01/07/17 15:58 BUN 32 mg/dL (7-23) H 01/08/17 04:52 Creatinine 1.8 mg/dL (0.6-1.0) H 01/08/17 04:52 POC Creatinine 2.0 mg/dL (0.6-1.2) H 01/07/17 15:58 Estimated GFR 28 01/08/17 04:52 Glucose 92 mg/dL (70-100) 01/08/17 04:52 POC Glucose 99 mg/dL (70-100) 01/07/17 15:58 Calcium 7.8 mg/dL (8.5-10.4) L 01/08/17 04:52 Total Bilirubin 3.9 mg/dL (0.1-1.4) H 01/08/17 04:52 Conjugated Bilirubin 2.1 mg/dL (0.0-0.5) H 01/08/17 04:52 Unconjugated Bilirubin 1.8 mg/dL (0.0-1.1) H 01/08/17 04:52 AST 65 IU/L (14-46) H 01/08/17 04:52 ALT 61 IU/L (9-52) H 01/08/17 04:52 Alkaline Phosphatase 85 IU/L (38-126) 01/08/17 04:52 Troponin I 1.640 ng/mL (0-0.034) H 01/08/17 15:11 Total Protein 4.6 g/dL (6.3-8.2) L 01/08/17 04:52 Albumin 2.5 g/dL (3.5-5.0) L 01/08/17 04:52 Specimen Hemolysis 108 01/07/17 16:38 Patient ABO/Rh A POSITIVE 01/06/17 08:07 Antibody Screen NEGATIVE 01/06/17 08:07 Crossmatch IS Only See Detail 01/06/17 08:07 Laboratory Tests 01/08/17 01/08/17 04:52 15:11 AST 65 H ALT 61 H Troponin I 1.640 H EKG additional interpertation: EKG reveals atrial fibrillation with a rapid ventricular response. Low voltage. No acute ST-T changes concerning for ischemia. RSR prime Echocardiogram: echocardiogram reveals trace pericardial effusion. There is preserved LV systolic function with left ventricular hypertrophy. No significant valvular abnormalities. Pulmonary artery pressure is estimated at 51 mm of mercury. A/P Assessment: problem list: Status post ileostomy and abdominal washout after complicated surgery for diverticular disease. Postoperative anemia with hemoglobin 7.7. Postoperative obtundation. Atrial fibrillation with rapid ventricular response in the setting of recent surgery. Likely hypertensive cardiomyopathy with LVH. Elevation in troponin without regional wall motion abnormalities or EKG changes concerning for acute coronary syndrome. Creatinine 1.8. Plan: Impression: Atrial fibrillation is likely exacerbated by recent surgical procedure in the setting of known atrial fibrillation hypertensive heart disease. At the present time she is tolerating it relatively well with soft blood pressures in the 90-110 range. Her echocardiogram does not suggest regional wall motion abnormalities or underlying valvular heart disease.Her echo does suggest underlying pulmonary hypertensive disease at this point of uncertain etiology the right heart is working well. Recommendations: Agree with gentle rate control using IV amiodarone over the course of 24 hours. Agree with use of digoxin in the short term. Volume for hypotension if needed consider use of packed red blood cells. Serial troponins with additional CPK/MB and serial EKG. For hemodynamic instability would consider ANDRÉS cardioversion. However, this would likely require intubation based on current mental status and vital signs. With recent abdominal process prognosis is somewhat guarded. Past Medical History - Medical/Surgical History Hx Asthma: No Hx Chronic Respiratory Disease: No Hx Cardiac Disease: No Hx Diabetes: No Hx Renal Disease: No Hx Alcoholism: No Hx Cirrhosis: No Hx HIV/AIDS: No Hx Splenectomy or Spleen Trauma: No Other PMH: Diverticulitis x 4. Neuropathy, bilateral feet. Knee pain, knee replacement pending. - Social History Smoking Status: Never smoked Review of Systems - Review of Systems All Other Systems: Reviewed and Negative (not obtainable at this time)
[2017-01-08] MEDS ORDERED: AMIODARONE HCL 200 ML IV ONE (18:25)
[2017-01-08] MEDS ORDERED: DIGOXIN 500 MCG/2 ML AMP IVP SCH ×2 (19:00→20:00)
--- NOTE | 2017-01-08 20:55 | HOSPPROG ---
Hospitalist Progress Note Assessment/Plan: called by micro re: gnr in blood i informed micro that neither I nor other hospitalist, are mariaa care of patient and directed them to dr russell on ertapenem, adequate gnr coverage Objective: Vital Signs Temp Pulse Resp BP Pulse Ox 38.2 C 146 H 24 H 98/56 L 92 01/08/17 20:00 01/08/17 20:09 01/08/17 20:00 01/08/17 20:00 01/08/17 20:00 Microbiology 01/07/17 19:45 Gram Stain - Final Peritoneal Fluid - Eswab Laboratory Results 01/08/17 04:52 01/08/17 04:52 01/07/17 01/08/17 01/09/17 05:59 05:59 05:59 Intake Total 1200 1166 1111.1 Output Total 650 705 300 Balance 550 461 811.1 PT 17.9 SEC (12.0-15.0) H 01/07/17 17:10 INR 1.48 (0.83-1.16) H 01/07/17 17:10 ICD10 Worksheet Patient Problems: Problems Problem Status Onset Diverticulitis Acute
[2017-01-08] MEDS: DIGOXIN 500 MCG/2 ML AMP IVP SCH ×5 (21:07→22:52)
[2017-01-08] MEDS: CETIRIZINE 10 MG TAB PO SCH (21:42)
--- NOTE | 2017-01-08 23:31 | GOP ---
[f rep st] OPERATIVE REPORT DATE OF OPERATION: 01/07/2017 SURGEON: Finn Portillo MD BANKING TEACHER: Dr. Castanon, whose presence was requested by me and medically necessary for the safe and timely completion of this case. ANESTHESIA: General endotracheal anesthesia. ANESTHESIOLOGIST: Dr. Sesay. PREOPERATIVE DIAGNOSIS: Postoperative hematoma and possible anastomotic leak. POSTOPERATIVE DIAGNOSIS: Postoperative hematoma and possible anastomotic leak. PROCEDURE PERFORMED: 1. Diagnostic laparoscopy. 2. Exploratory laparotomy. 3. Evacuation of hematoma. 4. Ileostomy placement. FINDINGS: The patient had a significant amount of old blood and clot in the pelvis and between small bowel loops. No definitive bleeding source was identified. The patient had likely minimal fecal contamination, but no distinct leak was identified. ESTIMATED BLOOD LOSS: 500 cc of old blood. INDICATIONS: 71-year-old female who is status post robotic sigmoid colectomy on 01/04/2017. CT scan demonstrated likely hematoma and [id number] pneumoperitoneum. Risks and benefits of the procedure were discussed with the patient and her family, their questions were answered, and they wish to proceed. DESCRIPTION OF PROCEDURE: The patient was placed in the supine position. After the induction of adequate general endotracheal anesthesia, the patient was prepped and draped in the standard surgical fashion. 1% lidocaine and 0.5% Marcaine were injected throughout the supraumbilical area for local anesthesia. The old incision was opened with a #15 blade, and the abdominal wall was elevated. A Veress needle was inserted, and after noting proper pressures, the abdomen was insufflated with the carbon dioxide. A 5 mm trocar was passed; the camera followed. There was no apparent damage from trocar placement. Two more ports were placed, both 5 mm ports, in the upper abdomen. These were placed under direct vision after injecting 0.5% Marcaine for local anesthesia. Multiple adhesions, both new and old, were taken down using blunt dissection. Older adhesions required sharp dissection for removal. This allowed access into the pelvis and right lower quadrant. In the pelvis, there was a significant amount of old blood and clot. This was evacuated with a suction device. The area was inspected, and no gross contamination was identified. However, a foul odor was identified. The area was again inspected, and no other bowel injury was identified. No active source of bleeding was noted after careful inspection and irrigation. Due to the likelihood of a microperforation, decision was made to perform an ileostomy. Further adhesions pinning the cecum to the right lower quadrant wall were identified and taken down. However, after careful dissection, the terminal ileum could not be identified. Careful dissection was continued, but no further progress was made. Decision was made at this point to proceed with conversion to open. A midline laparotomy incision made with a #10 blade and carried down to the subcutaneous tissue with Bovie cautery and blunt dissection. The fascia was divided in the midline, and the abdomen was entered. At this point, the small bowel was run from the ligament of Treitz to the cecum. Further collections of old blood and clot were identified and evacuated. By running bowel, the terminal ileum was finally identified. Careful dissection brought the distal ileum into the wound. This was mobilized completely and the area inspected. The bowel appeared quite viable. Therefore, the ostomy site was chosen. This was chosen in the right lower quadrant near the umbilicus. An ellipse of skin was excised sharply, and the subcutaneous fat was partially cored out. This was done with cautery. The fascia was exposed and incised using cautery. The muscle of the rectus was split bluntly and the posterior fascia incised in a cruciate form. This was dilated and a [place] clamp used to grasp the distal ileum. The pelvis was reinspected, and again, no bleeding was identified. After again irrigating, a 19 round FRANK drain was placed into this area through one of the trocar sites. This was secured with a 2-0 nylon in interrupted fashion. The fascia was then closed using #1 looped PDS in a running fashion. This was reinforced with 0 Vicryl internal retention sutures. The midline incision was then segregated and the ostomy matured. The ileum was noted to be under no tension and retained its viability. Proximal and distal loops were identified, and a red rubber catheter was placed through a mesenteric defect created bluntly. This bridge was tacked down using 2-0 nylon in interrupted fashion. The ileostomy and separate mucous fistula were opened using cautery. The ostomy was then matured with 3-0 Vicryl in an interrupted fashion. Tacking sutures were also placed to help keep the bowel elevated. Despite this, due to the patient's habitus, some retraction was identified. This was reinforced with further Vicryl sutures. The midline incision was then thoroughly irrigated and aspirated. Good hemostasis was noted. The skin at all sites was closed with whitley. This was done after closing the fascia at the right lower quadrant port site with 0 Vicryl in a running fashion. The ostomy appliance was then placed. Decision was made at this point to keep the patient intubated due to her illness. She was transferred to the ICU in stable condition. /[id number]/MODL MTDD
[2017-01-09] MEDS: NS 1,000 ML IV SCH ×2 (01:14→21:56)
[2017-01-09 05:50] LABS: ABSOLUTE NRBC COUNT 0.09 10^3/uL (0-0.01); ADD MORPH? NO; ADD SCAN? YES; ATYPICAL LYMPHOCYTE FLAG 0 (0-99); FRAGMENT RBC FLAG 0 (0-99); HEMATOCRIT 29.6 % (38.0-47.0); HEMOGLOBIN 9.9 g/dL (12.6-16.3); LIPEMIA HEMOLYSIS FLAG 80 (0-99); MEAN CELL HEMOGLOBIN 30.2 pg (27.9-34.1); MEAN CELL HEMOGLOBIN CONCENTR. 33.4 g/dL (32.4-36.7); MEAN CELL VOLUME 90.2 fL (81.5-99.8); MEAN PLATELET VOLUME 10.5 fL (8.7-11.7); NRBC-AUTO% 0.6 % (0.0-0.2); PLATELET CLUMPS FLAG 40 (0-99); PLATELET COUNT 269 10^3/uL (150-400); RED BLOOD CELL COUNT 3.28 10^6/uL (4.18-5.33)
[2017-01-09 05:51] LABS: LEFT SHIFT FLG 300 (0-99)
[2017-01-09 05:56] LABS: ALANINE AMINOTRANSFERASE 150 IU/L (9-52); ALBUMIN 2.8 g/dL (3.5-5.0); ALKALINE PHOSPHATASE 112 IU/L (38-126); ANION GAP 12 mEq/L (8-16); ASPARTATE AMINOTRANSFERASE 187 IU/L (14-46); CALCIUM 8.5 mg/dL (8.5-10.4); CARBON DIOXIDE 20 mEq/l (22-31); CHLORIDE 109 mEq/L (97-110); GLOMERULAR FILTRATION RATE 15; GLUCOSE 113 mg/dL (70-100); POTASSIUM 5.3 mEq/L (3.5-5.2); SODIUM 141 mEq/L (134-144); TOTAL PROTEIN 4.9 g/dL (6.3-8.2)
--- NOTE | 2017-01-09 06:02 | CPEKG ---
Heart Rate: 164 RR Interval: 366 QRSD Interval: 84 QT Interval: 280 QTC Interval: 463 QRS [place]: 22 T Wave [place]: 184 EKG Severity - ABNORMAL ECG - EKG Impression: ATRIAL FIBRILLATION WITH RAPID V-RATE EKG Impression: NONSPECIFIC T ABNORMALITIES, DIFFUSE LEADS Electronically Signed By: Angel Villalba 09-Jan-2017 10:42:00
[2017-01-09 06:31] LABS: BILIRUBIN-CONJUGATED 4.2 mg/dL (0.0-0.5); BILIRUBIN-UNCONJUGATED 1.8 mg/dL (0.0-1.1)
[2017-01-09 06:33] LABS: ADD DIFF? YES; SCAN POSITIVE
[2017-01-09 06:41] LABS: PLATELET ESTIMATE ADEQUATE (ADEQ)
[2017-01-09 06:42] LABS: ECHINOCYTES 1+; LARGE PLATELETS PRESENT; MICROCYTES 1+; POLYCHROMASIA 1+; TOXIC GRANULATION PRESENT; TOXIC VACUOLIZATION PRESENT
[2017-01-09 06:45] LABS: CK-MB INTERPRETATION NEGATIVE (NEGATIVE); CREATINE KINASE-MB FRACTION 1.65 ng/mL (0-3.19)
--- NOTE | 2017-01-09 08:26 | SOAPPROG ---
SOAP Progress Note Assessment/Plan: Assessment: 1. atrial fibrillation with RVR: 1 Days duration at this point. 2. hypertensive cardiomyopathy. Preserved LV function. 3. elevation in troponin with negative cpk. : metabolic etiology in the setting or multiorgan failure 3 acute renal failure with volume overload 4. s/p Ileostomy 5. gm negative bacteremia. 6. post-operative anemia s/p transfusion 7. obtundation impression: Multiorgan failure with rising creatinine in the setting of gram- negative bacteremia post ileostomy. Persistent atrial fibrillation with rapid ventricular response despite IV digoxin amiodarone overnight. Improvement in systemic blood pressure.Improvement in mental status as she is responding to simple commands. Cardiac enzymes, EKG do not suggest acute cardiac injury. Echocardiogram confirms normal left ventricular systolic function with a hypertensive cardiomyopathy. No indications for urgent cardioversion at this point. Recommend addition of diltiazem today. Complete amiodarone loading today. Plan for maintenance at 0.5 milligrams/hour. Patient would benefit from anticoagulation at some point. Agree with renal consultation for acute renal failure in the setting of decreased urine output and volume overload. Agree with IV antibiotics and continued support the setting of gram-negative bacteremia. Plan: 01/09/17 08:14 01/09/17 08:30 Subjective: Patient is arousable this morning she is able to open eyes to command. She reports no chest pain with the shake of the head. Overnight patient's hemodynamics reveal increased systemic blood pressure in the setting of AFib with rapid ventricular rate. Minimal reduction with IV amiodarone and digoxin overnight. Objective: Cardiac medications: Medications Generic Name Dose Route Start Last Admin Trade Name Freq PRN Reason Stop Dose Admin Amiodarone HCl 540 mg/ 300 mls @ 16.667 mls/hr 01/08/17 22:30 01/08/17 22:00 Dextrose IV 01/09/17 16:29 300 mls ONCE ONE Protocol Discontinued Medications Generic Name Dose Route Start Last Admin Trade Name Freq PRN Reason Stop Dose Admin Digoxin 125 mcg 01/08/17 20:00 01/08/17 20:09 Lanoxin Injections IVP 01/09/17 04:01 125 mcg Q4H [facility] Laboratory Tests 01/08/17 01/08/17 01/09/17 15:11 23:53 05:25 Creatine Kinase 356 H CK-MB (CK-2) Fraction 1.65 CK-MB (CK-2) % 0.5 Creatine Kinase Interp NEGATIVE Troponin I 1.640 H 1.230 H 1.030 H Vital Signs Temp Pulse Resp BP Pulse Ox 38.4 C H 164 H 25 H 166/74 H 93 01/09/17 06:00 01/09/17 07:00 01/09/17 07:00 01/09/17 07:00 01/09/17 07:00 Microbiology 01/07/17 16:52 Blood Panel (PCR) - Final Blood No Organism Detected 01/07/17 19:45 Gram Stain - Final Peritoneal Fluid - Eswab Laboratory Results 01/09/17 05:25 01/09/17 05:25 01/08/17 01/09/17 01/10/17 05:59 05:59 05:59 Intake Total 1166 2263.1 Output Total 705 550 Balance 461 1713.1 PT 17.9 SEC (12.0-15.0) H 01/07/17 17:10 INR 1.48 (0.83-1.16) H 01/07/17 17:10 ECG this morning shows atrial fibrillation with rapid ventricular response. No ST-T changes concerning for ischemia. - Time Spent With Patient Time Spent With Patient: 15m Physical Exam - Physical Exam General Appearance: moderate distress, obtunded Respiratory: decreased breath sounds Cardiac/Chest: irregularly irregular Abdomen: distended Skin: warm/dry Neuro/Psych: other ( Arousable. Responsive to minimal commands) ICD10 Worksheet Patient Problems: Problems Problem Status Onset Diverticulitis Acute
[2017-01-09] MEDS: ERTAPENEM 0.5 GM in NS 100 ML IV SCH (08:28)
[2017-01-09] MEDS: DILTIAZEM 125 MG in D5W 125 ML IV SCH ×2 (08:28→15:46)
[2017-01-09] MEDS: METOPROLOL TARTRATE 25 MG TAB PO SCH ×2 (08:50→21:55)
[2017-01-09] MEDS: GABAPENTIN 100 MG CAP PO SCH ×2 (08:50→21:55)
--- NOTE | 2017-01-09 11:07 | SOAPPROG ---
SOAP Progress Note Assessment/Plan: Assessment: S/P ex-lap, ileostomy, evacuation of large hematoma. H&H stable. MOF, will await nephrology input. Continue supportive care. D/w patient's family, questions answered. Plan: 01/05/17 09:04 01/06/17 12:35 01/07/17 08:35 01/08/17 09:46 01/08/17 09:50 01/09/17 11:01 Subjective: Patient with persistent tachycardia overnight. Responds to simple questions. Objective: Vital Signs Temp Pulse Resp BP Pulse Ox 38.6 C H 133 H 23 H 141/73 H 91 L 01/09/17 08:00 01/09/17 10:00 01/09/17 10:00 01/09/17 10:00 01/09/17 10:00 Microbiology 01/07/17 16:52 Blood Panel (PCR) - Final Blood No Organism Detected 01/07/17 19:45 Gram Stain - Final Peritoneal Fluid - Eswab Laboratory Results 01/09/17 05:25 01/09/17 05:25 01/08/17 01/09/17 01/10/17 05:59 05:59 05:59 Intake Total 1166 2263.1 Output Total 705 550 Balance 461 1713.1 PT 17.9 SEC (12.0-15.0) H 01/07/17 17:10 INR 1.48 (0.83-1.16) H 01/07/17 17:10 Appears sedated, responds to simple questions appropriately Markedly tachycardic Abd distended Inc C/D/I FRANK serosang, clearing ICD10 Worksheet Patient Problems: Problems Problem Status Onset Diverticulitis Acute - ICD10 Problem Qualifiers (1) Diverticulitis Qualifiers: Diverticulitis site: D Diverticulitis bleeding: D Diverticulitis complication: D
[2017-01-09] MEDS ORDERED: fentaNYL 100 MCG/2 ML INJ IVP PRN (11:10)
[2017-01-09] MEDS: PROPOFOL/EMULSION 100 ML IV SCH (11:50)
[2017-01-09 12:26] LABS: ANION GAP 11 mEq/L (8-16); CALCIUM 8.3 mg/dL (8.5-10.4); CARBON DIOXIDE 21 mEq/l (22-31); CHLORIDE 110 mEq/L (97-110); GLOMERULAR FILTRATION RATE 15; GLUCOSE 122 mg/dL (70-100); POTASSIUM 5.2 mEq/L (3.5-5.2); SODIUM 142 mEq/L (134-144)
[2017-01-09] MEDS: AMIODARONE HCL 200 ML IV SCH (12:37)
[2017-01-09] MEDS: fentaNYL/NACL 100 ML IV SCH (13:14)
--- NOTE | 2017-01-09 13:14 | PDINTPN ---
Barrel Stave Inspector Progress Note Assessment/Plan: Assessment/plan: 71 F with diverticulitis admitted 01/04 with abdominal pain and had robotic sigmoid hemicolectomy. There wer no obvious complications and she was sent to the floor, but developed increasing pain and somnolence so was transferred to the ICU 01/[address] revealing an 11 cm pelvic hematoma and extraluminal air. She returned to the OR for evacuation of the hematoma and creation of an ileostomy. She was extubated the next morning, but developed atrial fibrillation , which she may have had twice in previous years (family was uncertain). * Peritonitis following sigmoid resection complicated by anastamotic leak. Blood cultures are currently growing a GNR, and she is being treated with ertapenem. She has minimal pressor requirements and her wbc was reduced 01/08. The elevated wbc today may be related to her afib which has been challenging to control . Continue to monitor cultures, fever, and hemodynamic stability with low threshold for ID consult. * Afib with RVR. She was initially treated with amiodarone, followed by a brief trial of esmolol (dropped BP). Cardiology has been consulted and recommended continuing amiodarone; but her rate has been poorly controlled. She got one dose of Digoxin on 01/08, but worsening renal function makes that a less desirable choice. Diltiazem was added this AM with mild success- HR 140-160 and no drop in BP. Her echo was unremarkable as were serial troponins. Interestingly , though remains in afib, her HR improved dramatically with intubation. * Respiratory failure with hypoxemia- presumably related to pain control, ineffective respirations and possibly pulmonary edema 2/2 NANCY and afib. Her oxygen requirement had been progressing overnight and she barely maintained a sat of 89% on 15 lpm oxymask. Given her poor mentation, she underwent urgent ( non-emergent) intubation today (documented separately), hoping that either she "auto-diureses" or gets HD to improve her oxygenation. I do not see evidence of aspiration PNA currently. * NANCY- she hasa history of ureteral stents in the remote past following a ALBA, but npo known CKD. Her said she has "50% less kidney function." In either case, her creatinine has been rising and her K is now 5.3. Dr. Ayers has been consulted, but her UOP may have increased this AM spontaneously (before intubation or improved rate control). * Transaminitis- she had a small increase in AST/ALT likely 2/2 decreased perfusion. Follow for now. * Her wbc is likely related to stress of ongoing rapid afib. Follow. * Anemia- stable HCT with no evidence of bleeding. * * Critical care time 60 minutes separate from procedures for a complex patient with evidence of multisystem failure Objective: Vital Signs Temp Pulse Resp BP Pulse Ox 38.0 C 112 H 24 H 101/80 92 01/09/17 12:00 01/09/17 12:00 01/09/17 12:00 01/09/17 12:00 01/09/17 12:00 Microbiology 01/07/17 19:45 Gram Stain - Final Peritoneal Fluid - Eswab 01/07/17 16:52 Blood Panel (PCR) - Final Blood No Organism Detected Laboratory Results 01/09/17 05:25 01/09/17 12:00 01/08/17 01/09/17 01/10/17 05:59 05:59 05:59 Intake Total 1166 2263.1 Output Total 705 550 Balance 461 1713.1 PT 17.9 SEC (12.0-15.0) H 01/07/17 17:10 INR 1.48 (0.83-1.16) H 01/07/17 17:10 Physical Exam - Physical Exam General Appearance: moderate distress, obtunded, obese EENT: PERRL/EOMI Neck: supple Respiratory: respiratory distress, decreased breath sounds, crackles Cardiac/Chest: edema, tachycardia, irregularly irregular Abdomen: soft, No distended, No guarding Skin: diaphoresis, pallor Lymphatic: no adenopathy Extremities: pedal edema Neuro/Psych: cognition abnormalities ICD10 Worksheet Patient Problems: Problems Problem Status Onset Diverticulitis Acute
--- NOTE | 2017-01-09 13:28 | GPN ---
[f rep st] PROCEDURE NOTE DATE OF PROCEDURE: 01/09/2017 PROCEDURE: Endotracheal intubation. Consent was waved due to the emergent nature of the procedure. Conscious sedation was achieved using a total of 1 mg IV Versed, 20 mg of IV etomidate. The patient tolerated these well without complication. DESCRIPTION OF PROCEDURE: An 8.0 endotracheal tube was placed on the 1st attempt using direct laryn goscopy. There was good visualization of the cords which appeared to be moving normally. There wer e no excess secretions. Tube placement was confirmed first by tube condensation, appropriate color change on capnography, normal oxygen saturations, chest auscultation and finally chest x-ray. /[id number]/MODL
[2017-01-09] MEDS ORDERED: MIDAZOLAM 2 MG/2 ML VIAL IVP ONE (13:30)
[2017-01-09] MEDS ORDERED: ETOMIDATE 20 MG/10 ML VIAL IV ONE (13:30)
[2017-01-09] MEDS ORDERED: ETOMIDATE 40 MG/20 ML INJ IV ONE (13:30)
--- NOTE | 2017-01-09 18:18 | GCON ---
[f rep st] CONSULTATION DATE OF CONSULTATION: 01/09/2017 REASON FOR CONSULTATION: Acute renal failure. HISTORY OF PRESENT ILLNESS: I have been asked to evaluate the patient regarding her acute renal alexis becker. She is a 71-year-old who underwent an elective sigmoid colectomy on January 04 for diverticul itis. She had been suffering from chronic abdominal pain for an extended period of time. Her surge ry was uncomplicated, though she did have some postoperative hypotension. She progressed slowly and underwent a repeat CT with contrast on the that demonstrated probable anastomotic leak, and th underwent exploratory laparotomy later that day. She had an ileostomy performed and a washo ut of the abdomen. It was felt that microperforation was likely. She developed atrial fibrillation with rapid ventricular response postoperatively, and this has been difficult to control. She is on amiodarone, and diltiazem was added earlier today. She was extubated yesterday but reintubated ear lier today. Her baseline creatinine is normal and was last documented at 0.7 in September of this yea r. On postop day #1, it was 1.5 and remained fairly stable there, and was as low as 1.1 on the . That day she had a contrast-enhanced CT, and the following day it was 1.7. It was 1.8 yesterday and then 3.0 this morning. Repeat labs at noon demonstrated a stable creatinine of 3.0. Her potass ium has been mainly around 5 since admission and most recently 5.2. Her serum bicarbonate is 21. S he did have hypotension yesterday evening, but this is better today. Blood cultures are growing gra m-negative rods, and she has been started on ertapenem. She was receiving lactated Ringer's earlier in her admission but currently is receiving normal saline at 75 cc/hr. her urine output has ranged from 350 to 650 cc per day since admission. She has made 400 cc thus far today. Her CT scan on demonstrated some right renal cortical thinning with mild right hydronephrosis, but the left kidney appeared normal. Random urine sodium sent earlier today was 24 with a random urine creatinin e of 134. I have been asked to comment regarding her renal failure. PAST MEDICAL HISTORY: 1. Diverticulitis, status post recent sigmoid colectomy, as outlined above. 2. Longstanding hypertension. 3. History of ureteral obstruction following abdominal surgery years ago, with subsequent right misa al atrophy. She has been evaluated by Urology and told that her right renal function is poor. 4. Gastroesophageal reflux. 5. Atrial fibrillation. 6. Osteoarthritis, for which she takes occasional NSAIDs. 7. History of head and neck cancer, details unclear. 8. Peripheral neuropathy. PAST SURGICAL HISTORY: 1. Recent sigmoid colectomy and exploratory laparotomy. 2. Total abdominal hysterectomy. 3. Bilateral salpingo-oophorectomy. 4. Bladder suspension and rectocele repair. 5. Resection of oral cancer. ALLERGIES: No known drug allergies. CURRENT MEDICATIONS: She is receiving normal saline at 75 cc/hr. Other medications include amiodar one IV, diltiazem IV infusion, ertapenem 500 mg IV daily, Pepcid 20 mg IV q.12 hours, metoprolol 12. 5 mg p.o. twice daily, and gabapentin 100 mg p.o. twice daily. Sedation is with propofol and fentan yl. SOCIAL HISTORY: She is originally from [place] but has lived in [place] since 1975. She is nonsmoke r and nondrinker. FAMILY HISTORY: She has a grandson with childhood nephrotic syndrome, this has recently been diagno sed as FSGS. There is no other known family history of renal disease. REVIEW OF SYSTEMS: Positive for recent abdominal pain according to the family. They deny any regul ar NSAID use. A complete 10-organ system review is not obtainable due to the patient's intubated an d sedated status. PHYSICAL EXAMINATION: GENERAL: She is intubated and sedated. VITAL SIGNS: Blood pressure is 112/61, heart rate is 109, oxygenation is 97% on 90% FiO2. HEENT: Oral mucosa is moist. Oropharynx obscured by endotracheal tube. NECK: There is a triple-lumen cat heter in the right internal jugular vein. I do not appreciate any JVD or lymphadenopathy, and there are no carotid bruits. HEART: Irregularly irregular rhythm. LUNGS: Clear to auscultation anteri mike with a few scattered rhonchi. ABDOMEN: Quiet but soft. Abdominal surgical dressings are in p lace. A drain and an ostomy are also in place. EXTREMITIES: Her feet are warm and appear well per fused, but I cannot appreciate pedal pulses. She does have significant dependent edema. SKIN: No skin rashes. NEURO: She is sedated. : A Lisa catheter is in place draining dark jaspreet urine. LABORATORY DATA: Sodium 142, potassium 5.2, chloride 110, CO2 21, BUN 61, creatinine 3.0, glucose 1 22, calcium 8.3. Albumin is 2.8, total protein 4.9, AST 187, ALT 150, total bilirubin 6.0 CK is 35 6. A random urine sodium is 24, random urine creatinine is 134. Calculated fractional excretion of sodium is 0.4%. White blood cell count is 14.5, hemoglobin 9.9, platelets 269. Blood cultures are growing gram-negative rods. IMPRESSION AND PLAN: 1. Acute renal failure: She has significantly prerenal urinary indices. She is clearly not total body volume deplete, though may be intravascularly volume deplete. I suspect she has a combination of prerenal azotemia, ischemic acute tubular necrosis, and nephrotoxic acute tubular necrosis second stan to contrast nephropathy. Though she is currently intubated, she does remain on fairly high FiO2 , and more aggressive volume resuscitation is probably not morillo at this point. Fortunately, her uri ne output has been stable and perhaps may even be slightly improving. Also, her creatinine is stabl e over the past 7-8 hours, indicating that she may be plateauing. Though her potassium is essential ly at the upper limit of normal, it has been relatively stable there for a few days. I do not think there is any indication for emergent hemodialysis at this time. I would continue to support her he modynamically, and care should be taken to avoid additional episodes of hypotension. Her rate contr ol appears to be improved regarding her atrial fibrillation, this should help. She should obviously avoid any additional IV contrast-enhanced imaging studies unless absolutely necessary, as well as a ny non-steroidal anti-inflammatories. I do not feel she requires any additional renal imaging at th is time, as her abdominal CT on January 07 did not demonstrate any significant hydronephrosis. I di d discuss in some detail with her family the possibility of acute hemodialysis and the indications f or this. They appear to have a good understanding of this. I reinforced that even if she should re quire acute dialysis during this admission, I would expect her to make a full recovery and not requi re permanent dialysis. 2. Respiratory failure: She is now intubated. As noted above, I believe she may be somewhat dry i ntravascularly, but since she is still requiring fairly high FiO2, I would be disinclined to perform more vigorous volume resuscitation. At the same time, however, I would not recommend diuresing her either unless her respiratory status markedly deteriorates. I would definitely recommend attemptin g diuresis before dialysis and ultrafiltration if volume overload is felt to be a cause of worsening respiratory status. 3. Volume: She is total body volume overloaded but I believe likely intravascularly dry. I would continue her current rate of normal saline to avoid worsening this, but I do think that more aggress anival volume replacement carries some risk of worsening her respiratory status. As noted above, it ma y be worth transducing her central venous pressure to help guide fluid management. It is ewa oconnor that her urine output appears to be possibly increasing today. 4. Potassium: As previously stated, her serum potassium has been hovering around the upper limit o f normal for a few days. If she is started on tube feeds, care should be taken to use a low-potassi um version. If TPN is initiated, there should be absolutely no potassium in the TPN. She should no t receive any potassium-containing IV fluids, such as lactated Ringer's. Thank you for the consultation. We will follow with you. /[id number]/MODL
[2017-01-09] MEDS: CHLORHEXIDINE GLUCONATE 15 ML UDL PO SCH (20:30)
[2017-01-09] MEDS ORDERED: FAMOTIDINE 20 MG/NACL 50 ML IV SCH (21:00)
[2017-01-09] MEDS: CETIRIZINE 10 MG TAB PO SCH (21:54)
[2017-01-10] MEDS: PROPOFOL/EMULSION 100 ML IV SCH ×2 (00:13→11:47)
[2017-01-10] MEDS: AMIODARONE HCL 200 ML IV SCH (02:14)
[2017-01-10 04:36] LABS: BICARBONATE 19 mEq/L (22-26); MEASURED OXYGEN SATURATION 93 % (92-95); PCO2 35 mmHg (34-38); PO2 71 mmHg (65-75); TCO2 20 mEq/L (23-27)
[2017-01-10 04:38] LABS: ASSIST CONTROL YES; END TIDAL CO2 25; O2 CONCENTRATIION 50 % (0-100); P/F RATIO 142 RATIO
[2017-01-10 04:39] LABS: TOTAL RATE 18
[2017-01-10 04:39] LABS: % IMMATURE GRANULYOCYTES 1.3 % (0.0-1.1); ADD DIFF? NO; ADD MORPH? NO; ADD SCAN? NO; ATYPICAL LYMPHOCYTE FLAG 0 (0-99); FRAGMENT RBC FLAG 0 (0-99); HEMATOCRIT 26.2 % (38.0-47.0); HEMOGLOBIN 8.7 g/dL (12.6-16.3); LEFT SHIFT FLG 70 (0-99); LIPEMIA HEMOLYSIS FLAG 80 (0-99); MEAN CELL HEMOGLOBIN 30.5 pg (27.9-34.1); MEAN CELL HEMOGLOBIN CONCENTR. 33.2 g/dL (32.4-36.7); MEAN CELL VOLUME 91.9 fL (81.5-99.8); MEAN PLATELET VOLUME 10.5 fL (8.7-11.7); NRBC-AUTO% 0.7 % (0.0-0.2); PLATELET CLUMPS FLAG 0 (0-99); PLATELET COUNT 215 10^3/uL (150-400); RED BLOOD CELL COUNT 2.85 10^6/uL (4.18-5.33); RED CELL DISTRIBUTION WIDTH 16.3 % (11.5-15.2)
[2017-01-10 05:16] LABS: ALANINE AMINOTRANSFERASE 127 IU/L (9-52); ALBUMIN 2.7 g/dL (3.5-5.0); ALKALINE PHOSPHATASE 107 IU/L (38-126); ANION GAP 10 mEq/L (8-16); ASPARTATE AMINOTRANSFERASE 114 IU/L (14-46); BILIRUBIN,TOTAL 4.7 mg/dL (0.1-1.4); CALCIUM 8.3 mg/dL (8.5-10.4); CARBON DIOXIDE 21 mEq/l (22-31); CHLORIDE 111 mEq/L (97-110); CREATININE 2.8 mg/dL (0.6-1.0); GLOMERULAR FILTRATION RATE 17; GLUCOSE 116 mg/dL (70-100); POTASSIUM 4.7 mEq/L (3.5-5.2); SODIUM 142 mEq/L (134-144); TOTAL PROTEIN 5.3 g/dL (6.3-8.2)
--- NOTE | 2017-01-10 06:00 | CPEKG ---
Heart Rate: 98 RR Interval: 612 QRSD Interval: 92 QT Interval: 336 QTC Interval: 430 QRS [place]: 21 T Wave [place]: 160 EKG Severity - ABNORMAL ECG - EKG Impression: ATRIAL FIBRILLATION, V-RATE 69-116 EKG Impression: LOW VOLTAGE THROUGHOUT EKG Impression: NONSPECIFIC T ABNORMALITIES, ANT-LAT LEADS Electronically Signed By: Eduardo Ward 11-Jan-2017 08:38:35
[2017-01-10 06:22] LABS: BILIRUBIN-CONJUGATED 3.5 mg/dL (0.0-0.5); BILIRUBIN-UNCONJUGATED 1.2 mg/dL (0.0-1.1)
[2017-01-10] MEDS: ERTAPENEM 0.5 GM in NS 100 ML IV SCH (09:46)
[2017-01-10] MEDS: CHLORHEXIDINE GLUCONATE 15 ML UDL PO SCH ×2 (09:46→20:48)
--- NOTE | 2017-01-10 09:46 | WOCRNPDOC ---
KETURAH Advanced Assessment Note - Skin Integrity Problem, Advanced Assess Generalized Abdomen Surgical Wound/Incision Dressing Type: Open to Air Closure Description: Asaf Exudate Amount: Moderate Exudate Color: Yellow, Green Exudate Characteristic(s): Bilious, Serous (vs succus) Integumentary Issue Intervention: Dressing Applied (4x4 drain sponge) Charity Wound Tissue: Raw (at periumbilical area) Charity Wound Swelling: None Wound Edges: Attached (except at periumbilical area) Site Odor: None Skin Integrity Problem Comment: Edges are well-approximated along surgical incision except for a 0.8 x 0.5 cm area adjacent to the umbilicus, where drainage (apparently ileostomy leakage) had collected prior to appliance change. Site was cleansed w/sterile NS and gauze; skin prep was applied to periwound, and a 4x4 dressing sponge was placed. EH Berg assisted in care. Right Lateral Ankle Dressing Type: [place]lev[place] Life Dressing Description: Clean/Dry, Intact Exudate Amount: None Exudate Characteristic(s): None Integumentary Issue Intervention: Dressing Changed, Dressing Initialed & Dated, Silver Gel Applied Charity Wound Tissue: Erythema, Swollen Charity Wound Swelling: Mild Wound Bed Color: Brown Wound Bed Constitution: Scab Wound Edges: Punched Out, Well Defined Site Odor: None Site Measurement - Head-to-Toe Length X Width X Depth (cm): 0.5 cm sunday x 0.2 Pressure Injury Stage: Unstageable Pressure Injury Present on Admit: Yes ( reports that patient had c/o "sore from shoe rubbing" on ankle.) Extremity Temperature: Cool Peripheral Edema Location & Description: 3+ at Bilateral LEs and feet Right Distal Abdomen Blister Dressing Type: ABD Pad Dressing Description: Saturated (with ileostomy leakage) Exudate Amount: Excessive Integumentary Issue Intervention: Dressing Applied (skin prep, Adaptic touch, 4x4 drain sponge), Dressing Initialed & Dated, Dressing Removed, Silver Gel Applied Charity Wound Tissue: Intact Charity Wound Swelling: None Wound Bed Color: [place], Red Wound Bed Constitution: Smooth Tissue Wound Edges: Attached, Irregular Site Odor: None Right Lateral Abdomen Skin Tear & lap site Dressing Type: Abdominal Pads Dressing Description: Not Intact, Saturated (with ileostomy leakage) Integumentary Issue Intervention: Dressing Applied (skin prep, Adaptic touch, 4x4 drain sponge), Dressing Initialed & Dated, Dressing Removed Charity Wound Tissue: Intact Charity Wound Swelling: None Wound Bed Color: [place], Red Wound Bed Constitution: Smooth Tissue Wound Edges: Attached, Irregular Site Odor: None Right Lateral Abdomen lap site Dressing Type: ABD Pad Dressing Description: Saturated (ileostomy leakage) Closure Description: [place] (intact) Integumentary Issue Intervention: Dressing Applied (skin prep, 4x4 drain sponge) , Dressing Initialed & Dated (skin prep, Adaptic touch, 4x4 drain sponge) Charity Wound Tissue: Intact Charity Wound Swelling: None Wound Bed Color: [place], Red Wound Edges: Attached Site Odor: None - Ileostomy Assessment, Advanced Right Upper Abdomen Ileostomy Ileostomy Appliance Intact: No (leaking) Ileostomy Appliance Currently in Use: Two Piece Flat, 2 3/4, Cut to Fit Stoma Color: Brown, Red, Yellow Stoma Turgor: Moist, Friable, Bridge Present (secured to proximal and distal peristomal tissue) Stoma Shape: Oval, Irregular Stoma Height: Protruding Mucocutaneus Junction: Intact Ileostomy Size - Head-to-Toe Length X Width X Depth (cm): 4 x 3.3 x 2.6 protruding height Ileostomy Details: Loop Peristomal Skin: Intact Ileostomy Comment/Treatment Details: Current skin barrier leaking liquid bile effluent. Stoma has an irregular, bumpy-textured surface, with pockets of friable, sloughing dusky tissue interspersing 80% red, viable-appearing tissue. Secure pouching is complicated by presence of bridge and leakage of effluent around the mucocutaneous junction. Provided complete ostomy care and appliance change with printed and demo education to . Patient was unable to provide consent for new ostomate programs at this visit, however was able to provide consent for enrollment. Education packet #1 was provided to and discussed with ; questions answered, and next follow-up was scheduled for 01/13. EH Berg was present to assist with care.
[2017-01-10] MEDS: METOPROLOL TARTRATE 25 MG TAB PO SCH (09:50)
[2017-01-10] MEDS: GABAPENTIN 100 MG CAP PO SCH (09:50)
--- NOTE | 2017-01-10 11:15 | SOAPPROG ---
SOAP Progress Note Assessment/Plan: Assessment: 1. atrial fibrillation with RVR: 1 Days duration at this point. 2. hypertensive cardiomyopathy. Preserved LV function. 3. elevation in troponin with negative cpk. : metabolic etiology in the setting or multiorgan failure 3 acute renal failure with volume overload 4. s/p Ileostomy 5. gm negative bacteremia. 6. post-operative anemia s/p transfusion 7. obtundation impression: Multiorgan failure with rising creatinine in the setting of gram- negative bacteremia post ileostomy. Persistent atrial fibrillation with rapid ventricular response despite IV digoxin amiodarone overnight. Improvement in systemic blood pressure.Improvement in mental status as she is responding to simple commands. Cardiac enzymes, EKG do not suggest acute cardiac injury. Echocardiogram confirms normal left ventricular systolic function with a hypertensive cardiomyopathy. No indications for urgent cardioversion at this point. Recommend addition of diltiazem today. Complete amiodarone loading today. Plan for maintenance at 0.5 milligrams/hour. Patient would benefit from anticoagulation at some point. Agree with renal consultation for acute renal failure in the setting of decreased urine output and volume overload. Agree with IV antibiotics and continued support the setting of gram-negative bacteremia. Plan: 01/09/17 08:14 Impression: Significant improvement in atrial fibrillation rate over the last 24 hours. Transition from IV amiodarone to oral. Continue diltiazem drip in the short term. Continue ICU supportive care. 01/10/17 11:12 Objective: Vital Signs Temp Pulse Resp BP Pulse Ox 36.9 C 82 16 114/61 94 01/10/17 04:00 01/10/17 11:00 01/10/17 11:00 01/10/17 11:00 01/10/17 11:00 Microbiology 01/07/17 19:45 Gram Stain - Final Peritoneal Fluid - Eswab 01/07/17 16:52 Blood Panel (PCR) - Final Blood No Organism Detected Laboratory Results 01/10/17 04:22 01/10/17 04:22 01/09/17 01/10/17 01/11/17 05:59 05:59 05:59 Intake Total 2263.1 2441.9 Output Total 550 1989 Balance 1713.1 452.9 PT 17.9 SEC (12.0-15.0) H 01/07/17 17:10 INR 1.48 (0.83-1.16) H 01/07/17 17:10 Physical Exam - Physical Exam General Appearance: obtunded Respiratory: other (intubated) Cardiac/Chest: irregularly irregular ICD10 Worksheet Patient Problems: Problems Problem Status Onset Diverticulitis Acute
[2017-01-10] MEDS ORDERED: AMIODARONE HCL 200 MG TAB PO SCH (11:30)
[2017-01-10] MEDS: NS 1,000 ML IV SCH ×2 (11:45→21:48)
[2017-01-10] MEDS: fentaNYL/NACL 100 ML IV SCH (11:47)
--- NOTE | 2017-01-10 12:16 | PDINTPN ---
Product Evangelist Progress Note Assessment/Plan: Assessment/plan: 71 F with diverticulitis admitted 01/04 with abdominal pain and had robotic sigmoid hemicolectomy. There wer no obvious complications and she was sent to the floor, but developed increasing pain and somnolence so was transferred to the ICU 01/[address] revealing an 11 cm pelvic hematoma and extraluminal air. She returned to the OR for evacuation of the hematoma and creation of an ileostomy. She was extubated the next morning, but developed atrial fibrillation , which she may have had twice in previous years (family was uncertain). * Peritonitis following sigmoid resection complicated by anastamotic leak. Blood cultures are currently growing a GNR, and she is being treated with ertapenem. She has minimal pressor requirements and her wbc was reduced 01/08. The elevated wbc today may be related to her afib which has been challenging to control . Continue to monitor cultures, fever, and hemodynamic stability. * Afib with RVR. She was initially treated with amiodarone, followed by a brief trial of esmolol (dropped BP). She got one dose of Digoxin on 01/08, but worsening renal function makes that a less desirable choice. Diltiazem was added 01/09 with mild success- HR 140-160 and no drop in BP. Her echo was unremarkable as were serial troponins. Interestingly, though remains in afib, her HR improved dramatically with intubation. * Respiratory failure with hypoxemia- presumably related to pain control, ineffective respirations and possibly pulmonary edema 2/2 NANCY and afib. Her oxygen requirement had been progressing overnight and she barely maintained a sat of 89% on 15 lpm oxymask. Given her poor mentation, she underwent urgent ( non-emergent) intubation 01/09, hoping that either she "auto-diureses" or gets HD to improve her oxygenation. I do not see evidence of aspiration PNA currently. She is on minimal vent support today, which was thoroughly reviewed. Continue to titrate her FiO2 and may consider weaning trials in AM. 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 Her UOP has increased and her creatine and K decreased without HD. Appreciate renal consult. * Transaminitis- she had a small increase in AST/ALT likely 2/2 decreased perfusion. Follow for now. * Her wbc is likely related to stress of ongoing rapid afib. Follow. * Anemia- stable HCT with no evidence of bleeding. * * Critical care time 60 minutes separate from procedures for a complex patient with evidence of multisystem failure 01/10/17 12:13 Objective: Vital Signs Temp Pulse Resp BP Pulse Ox 36.9 C 82 16 114/61 94 01/10/17 04:00 01/10/17 11:00 01/10/17 11:00 01/10/17 11:00 01/10/17 11:00 Microbiology 01/07/17 16:52 Blood Panel (PCR) - Final Blood No Organism Detected 01/07/17 19:45 Gram Stain - Final Peritoneal Fluid - Eswab Laboratory Results 01/10/17 04:22 01/10/17 04:22 01/09/17 01/10/17 01/11/17 05:59 05:59 05:59 Intake Total 2263.1 2441.9 102 Output Total 550 1989 Balance 1713.1 452.9 102 PT 17.9 SEC (12.0-15.0) H 01/07/17 17:10 INR 1.48 (0.83-1.16) H 01/07/17 17:10 Physical Exam - Physical Exam General Appearance: no apparent distress, obtunded (sedated) EENT: PERRL/EOMI Neck: supple Respiratory: lungs clear, normal breath sounds, No respiratory distress, No rales Cardiac/Chest: normal peripheral pulses, irregularly irregular, No edema Abdomen: non-tender, soft, No distended Skin: normal color, warm/dry Lymphatic: no adenopathy Extremities: No pedal edema Neuro/Psych: cognition abnormalities ICD10 Worksheet Patient Problems: Problems Problem Status Onset Diverticulitis Acute
[2017-01-10] MEDS: HEPARIN 5,000 UNIT/0.5 ML SYR SC SCH ×3 (12:33→21:49)
[2017-01-10] MEDS: AMIODARONE HCL 200 MG TAB TUBE SCH (12:33)
--- NOTE | 2017-01-10 12:56 | SOAPPROG ---
SOAP Progress Note Assessment/Plan: Assessment: Stable to minimal improvement. Cont support per ICU/cardiology/nephrology. If unable to wean sedation/vent consider TPN, though with signs of bowel function may be able to start TF eventually. Follow FRANK OP. D/w family at length, questions answered. Plan: 01/05/17 09:04 01/06/17 12:35 01/07/17 08:35 01/08/17 09:46 01/08/17 09:50 01/09/17 11:01 01/10/17 12:54 Subjective: No events. Objective: Vital Signs Temp Pulse Resp BP Pulse Ox 36.9 C 82 16 114/61 94 01/10/17 04:00 01/10/17 11:00 01/10/17 11:00 01/10/17 11:00 01/10/17 11:00 Microbiology 01/07/17 16:52 Blood Panel (PCR) - Final Blood No Organism Detected 01/07/17 19:45 Gram Stain - Final Peritoneal Fluid - Eswab Laboratory Results 01/10/17 04:22 01/10/17 04:22 01/09/17 01/10/17 01/11/17 05:59 05:59 05:59 Intake Total 2263.1 2441.9 102 Output Total 550 1989 Balance 1713.1 452.9 102 PT 17.9 SEC (12.0-15.0) H 01/07/17 17:10 INR 1.48 (0.83-1.16) H 01/07/17 17:10 Intubated, sedated. Responsive per family. Sl tachycardic Abd distended Inc C/D/I Ostomy functioning FRANK serous/serosang ICD10 Worksheet Patient Problems: Problems Problem Status Onset Diverticulitis Acute - ICD10 Problem Qualifiers (1) Diverticulitis Qualifiers: Diverticulitis site: D Diverticulitis bleeding: D Diverticulitis complication: D
[2017-01-10 13:56] LABS: CALCULATED OXYGEN SATURATION 95 % (92-95)
--- NOTE | 2017-01-10 15:50 | WOCRNPDOC ---
WOCRN Advanced Assessment Note - Skin Integrity Problem, Advanced Assess Generalized Abdomen Surgical Wound/Incision Dressing Type: Open to Air Exudate Amount: Moderate Exudate Characteristic(s): Serous (vs bile) Integumentary Issue Intervention: Dressing Applied (skin prep and dry gauze) Charity Wound Tissue: Erythema (2/2 moisture-associated irritation) Charity Wound Swelling: Mild Wound Edges: Attached (whitley intact) Site Odor: None Skin Integrity Problem Comment: During ostomy consult and care, observed serous- appearing fluid seeping from proximal aspect of abdominal incision. Cleansed using sterile NS and gauze, applied skin prep and gauze sponge. Notified EH Berg. Right Lateral Ankle Dressing Type: Allevyn Life Dressing Description: Clean/Dry, Intact Exudate Amount: None Integumentary Issue Intervention: Visualized Under Dressing, Silver Gel Applied Charity Wound Tissue: Erythema (at margin), Non-blanching, Indurated Charity Wound Swelling: None Wound Bed Color: Brown, Yellow Wound Bed Constitution: Adhered Slough (100% of base) Wound Edges: Attached, Well Defined Site Odor: None Site Measurement - Head-to-Toe Length X Width X Depth (cm): 0.5 sunday x 0.2 Pressure Injury Stage: Unstageable Pressure Injury Present on Admit: Yes ( reports that patient had c/o "sore caused by shoe" when at home.) Skin Integrity Problem Comment: Small, dry, round injury with mild non- blanching erythema on lateral malleolus. Applied antimicrobial gel to site and re-secured intact Allevyn dressing. EH Berg present. Right Distal Abdomen Blister Dressing Type: Open to Air Exudate Amount: None Integumentary Issue Intervention: Dressing Applied (Cavilon skin prep and small Allevyn), Dressing Initialed & Dated Charity Wound Tissue: Erythema (blistered) Wound Bed Constitution: Intact Serous Filled Blister Wound Edges: Well Defined Site Odor: None Site Measurement - Head-to-Toe Length X Width X Depth (cm): 6 x 1.5 x 0.5 height Skin Integrity Problem Comment: Intact serous fluid-filled blister at 7 o'clock in relation to ileostomy stoma, outside of perimeter of ostomy skin barrier wafer, has appearance consistent with a shear injury, possibly 2/2 fluid- related distention and retraction of abdominal skin. Covered protectively with skin prep and Allevyn dressing. Report to EH Berg. - Ileostomy Assessment, Advanced Right Upper Abdomen Ileostomy Ileostomy Appliance Intact: No (melting down and undermining by effluent) Ileostomy Appliance Currently in Use: Two Piece Flat, 2 3/4, Moldable Stoma Color: Red Stoma Turgor: Moist, Friable Stoma Shape: Irregular Stoma Height: Protruding Slightly Mucocutaneus Junction: Intact (sutures) Ileostomy Effluent: Liquid, Bile Ileostomy Size - Head-to-Toe Length X Width X Depth (cm): 4 x 3 x 2.6 (height) Ileostomy Details: Loop (with bridge) Ileostomy Comment/Treatment Details: Patient is currently intubated and unable to participate in Ostomy Education: Provided Ileostomy Post-op Education packet #1, along with extensive verbal and demo education to . Received verbal permission from to enroll patient in [employer], [employer], and [employer] sample programs, to be shipped to home address. Provided complete peristomal care and ileostomy pouching appliance change, with observing. Report to EH Berg.
--- NOTE | 2017-01-10 15:53 | SOAPPROG ---
SOAP Progress Note Assessment/Plan: Assessment: 1. arf: ischemic +/- nephrotoxic atn, now resolving with decreasing creat and increasing uo. Would cont current ivf but if still improving tomorrow would consider decreasing rate. Lytes stable to improved, no indications for hd. 2. Overload: remains on ivf as above. Hemodynamics improved, oxygenation stable , would prefer to hold off on diuresis unless absolutely necessary. 3. hypotension: resolved. Cont current ivf as above. Plan: 01/10/17 15:49 Subjective: Stable overnight, remains intubated but off pressors. Objective: Vital Signs Temp Pulse Resp BP Pulse Ox 36.4 C 98 16 117/59 L 94 01/10/17 13:00 01/10/17 15:00 01/10/17 15:00 01/10/17 15:00 01/10/17 15:00 Microbiology 01/07/17 16:52 Blood Panel (PCR) - Final Blood No Organism Detected 01/07/17 19:45 Gram Stain - Final Peritoneal Fluid - Eswab Laboratory Results 01/10/17 04:22 01/10/17 04:22 01/09/17 01/10/17 01/11/17 05:59 05:59 05:59 Intake Total 2263.1 2441.9 102 Output Total 550 1989 Balance 1713.1 452.9 102 PT 17.9 SEC (12.0-15.0) H 01/07/17 17:10 INR 1.48 (0.83-1.16) H 01/07/17 17:10 Physical Exam - Physical Exam General Appearance: other (intubated, sedated) Respiratory: lungs clear (anteriorly) Cardiac/Chest: irregularly irregular Abdomen: soft, other (quiet) Extremities: other (+dependent/LE edema) ICD10 Worksheet Patient Problems: Problems Problem Status Onset Diverticulitis Acute
[2017-01-10] MEDS ORDERED: FUROSEMIDE 40 MG/4 ML VIAL ONE (19:58)
[2017-01-10] MEDS: DILTIAZEM 125 MG in D5W 125 ML IV SCH (20:25)
[2017-01-10] MEDS: CETIRIZINE 10 MG TAB TUBE SCH (20:49)
[2017-01-10] MEDS: FAMOTIDINE 20 MG/NACL 50 ML IV SCH (20:50)
[2017-01-10] MEDS: GABAPENTIN 100 MG CAP TUBE SCH (20:51)
[2017-01-10] MEDS: METOPROLOL TARTRATE 25 MG TAB TUBE SCH (20:51)
[2017-01-11] MEDS: PROPOFOL/EMULSION 100 ML IV SCH ×2 (00:35→20:03)
[2017-01-11] MEDS: HEPARIN 5,000 UNIT/0.5 ML SYR SC SCH ×2 (05:16→05:28)
[2017-01-11 06:08] LABS: ALBUMIN 2.6 g/dL (3.5-5.0); ANION GAP 8 mEq/L (8-16); CALCIUM 8.2 mg/dL (8.5-10.4); CARBON DIOXIDE 22 mEq/l (22-31); CHLORIDE 114 mEq/L (97-110); CREATININE 1.8 mg/dL (0.6-1.0); GLOMERULAR FILTRATION RATE 28; GLUCOSE 108 mg/dL (70-100); POTASSIUM 4.6 mEq/L (3.5-5.2); SODIUM 144 mEq/L (134-144)
[2017-01-11 06:09] LABS: BASE EXCESS -5.4 mEq/L (-2.5-2.5); BICARBONATE 19 mEq/L (22-26); MEASURED OXYGEN SATURATION 91 % (92-95); PCO2 38 mmHg (34-38); PO2 69 mmHg (65-75); TCO2 20 mEq/L (23-27)
[2017-01-11 06:11] LABS: O2 CONCENTRATIION 45 % (0-100); P/F RATIO 153 RATIO; PATIENT RATE 18; PRESSURE SUPPORT 7
[2017-01-11 06:12] LABS: CPAP YES; END TIDAL CO2 28
--- NOTE | 2017-01-11 08:49 | SOAPPROG ---
SOAP Progress Note Assessment/Plan: Assessment: 1. atrial fibrillation with RVR: 3 Days duration at this point. 2. hypertensive cardiomyopathy. Preserved LV function. 3. elevation in troponin with negative cpk. : metabolic etiology in the setting or multiorgan failure 3 acute renal failure with volume overload 4. s/p Ileostomy 5. gm negative bacteremia. 6. post-operative anemia s/p transfusion 7. obtundation impression: Day 1. Multiorgan failure with rising creatinine in the setting of gram-negative bacteremia post ileostomy. Persistent atrial fibrillation with rapid ventricular response despite IV digoxin amiodarone overnight. Improvement in systemic blood pressure.Improvement in mental status as she is responding to simple commands. Cardiac enzymes, EKG do not suggest acute cardiac injury. Echocardiogram confirms normal left ventricular systolic function with a hypertensive cardiomyopathy. No indications for urgent cardioversion at this point. Recommend addition of diltiazem today. Complete amiodarone loading today. Plan for maintenance at 0.5 milligrams/hour. Patient would benefit from anticoagulation at some point. Agree with renal consultation for acute renal failure in the setting of decreased urine output and volume overload. Agree with IV antibiotics and continued support the setting of gram-negative bacteremia. 01/09/17 08:14 Impression: Day 2. Significant improvement in atrial fibrillation rate over the last 24 hours. Transition from IV amiodarone to oral. Continue diltiazem drip in the short term. Continue ICU supportive care. 01/10/17 11:12 Impression Day 3. Persistent atrial fibrillation. Slow and steady improvement. Rate remains controlled on amiodarone and low dose metoprolol orally and IV diltiazem. Continue supportive care. 01/11/17 08:46 Objective: Medications Generic Name Dose Route Start Last Admin Trade Name Freq PRN Reason Stop Dose Admin Amiodarone HCl 200 mg 01/10/17 11:30 01/10/17 12:33 Amiodarone Hcl TUBE 07/09/17 11:29 200 mg DAILY [facility] Diltiazem HCl 125 mg/ Dextrose 125 mls @ 0 mls/hr 01/09/17 08:30 01/10/17 20: 25 IV 07/08/17 08:29 125 mls CONT [facility] Protocol As Directed Heparin Sodium (Porcine) 5,000 unit 01/10/17 11:30 01/11/17 05:28 Heparin Sc Injection SC 07/09/17 11:29 5,000 unit 0600,1400,2200 [facility] Metoprolol Tartrate 12.5 mg 01/10/17 21:00 01/10/17 20:51 Lopressor TUBE 07/05/17 08:59 12.5 mg BID [facility] Laboratory Tests 01/10/17 04:22 Troponin I 0.230 H Vital Signs Temp Pulse Resp BP Pulse Ox 37.5 C 104 H 21 H 133/68 H 93 01/11/17 04:00 01/11/17 08:35 01/11/17 06:00 01/11/17 06:00 01/11/17 08:35 Microbiology 01/07/17 16:52 Blood Panel (PCR) - Final Blood No Organism Detected 01/07/17 19:45 Gram Stain - Final Peritoneal Fluid - Eswab Laboratory Results 01/10/17 04:22 01/11/17 05:23 01/10/17 01/11/17 01/12/17 05:59 05:59 05:59 Intake Total 2441.9 2858.0 Output Total 1988 2170 Balance 452.9 688.0 PT 17.9 SEC (12.0-15.0) H 01/07/17 17:10 INR 1.48 (0.83-1.16) H 01/07/17 17:10 Laboratory Tests 01/11/17 05:23 Troponin I 0.090 H ECG 01/10/ afib without ST-T changes. stable. Physical Exam - Physical Exam General Appearance: obtunded Respiratory: rhonchi, No respiratory distress Cardiac/Chest: irregularly irregular Extremities: No pedal edema ICD10 Worksheet Patient Problems: Problems Problem Status Onset Diverticulitis Acute
--- NOTE | 2017-01-11 08:55 | CPEKG ---
Heart Rate: 101 RR Interval: 594 QRSD Interval: 90 QT Interval: 324 QTC Interval: 420 QRS [place]: 53 T Wave [place]: 131 EKG Severity - ABNORMAL ECG - EKG Impression: ATRIAL FIBRILLATION, V-RATE 84-125 EKG Impression: LOW VOLTAGE THROUGHOUT EKG Impression: NONSPECIFIC T ABNORMALITIES, ANT-LAT LEADS Electronically Signed By: Eduardo Ward 12-Jan-2017 06:37:11
[2017-01-11] MEDS: METOPROLOL TARTRATE 25 MG TAB TUBE SCH ×2 (09:00→21:33)
[2017-01-11] MEDS: GABAPENTIN 100 MG CAP TUBE SCH ×2 (09:00→21:38)
[2017-01-11] MEDS: AMIODARONE HCL 200 MG TAB TUBE SCH (09:01)
[2017-01-11] MEDS: ERTAPENEM 0.5 GM in NS 100 ML IV SCH (09:01)
[2017-01-11] MEDS: CHLORHEXIDINE GLUCONATE 15 ML UDL PO SCH ×2 (09:30→21:48)
--- NOTE | 2017-01-11 09:38 | PDINTPN ---
Advertising Layout Worker Progress Note Assessment/Plan: Assessment: 71 F with diverticulitis admitted 01/04 with abdominal pain and had robotic sigmoid hemicolectomy. There were no obvious complications and she was sent to the floor, but developed increasing pain and somnolence so was transferred to the ICU 01/[address] revealing an 11 cm pelvic hematoma and extraluminal air. She returned to the OR for evacuation of the hematoma and creation of an ileostomy. She was extubated the next morning, but developed atrial fibrillation , which she may have had twice in previous years (family was uncertain). * Peritonitis following sigmoid resection complicated by anastamotic leak. Blood cultures are currently growing a GNR, and she is being treated with ertapenem. She has minimal pressor requirements and her wbc was reduced 01/08. Her WBC is slightly higher today, but she remains febrile. She has some dark liquid ostomy output. Continue to monitor cultures, fever, and hemodynamic stability. * Afib with RVR. She was initially treated with amiodarone, followed by a brief trial of esmolol (dropped BP). She got one dose of Digoxin on 01/08, but worsening renal function makes that a less desirable choice. Diltiazem was added 01/09, and rate is now well controlled with a combination of oral amio, metoprolol, and a Cardizem drip. Her echo was unremarkable as were serial troponins. Interestingly, though remains in afib, her HR improved dramatically with intubation. * Respiratory failure with hypoxemia- presumably related to pain control, ineffective respirations and possibly pulmonary edema 2/2 NANCY and afib. Her oxygen requirement had been progressing overnight and she barely maintained a sat of 89% on 15 lpm oxymask. Given her poor mentation, she underwent urgent ( non-emergent) intubation 01/09, hoping that either she "auto-diureses" or gets HD to improve her oxygenation. She is on CPAP this morning. Weaning today, doing well without distress. 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 Her UOP has increased and her creatine and K decreased without HD. Getting IVF, I>O. Renal following. * Transaminitis- she had a small increase in AST/ALT likely 2/2 decreased perfusion. Down yesterday. * Her WBC remains elevated, is likely related to stress of resolving peritonitis and ongoing rapid afib. Afebrile. * Anemia- stable HCT with no evidence of bleeding. Plan: Reduce sedation. May try to extubate if weans well. Start full anticoagulation. Start TF if unable to extubate. ANDRÉS prior to extubation. D/W Dr Campbell, Dr. Portillo, and family. 01/11/17 10:37 Subjective: Sedated, intubated. Objective: Vital Signs Temp Pulse Resp BP Pulse Ox 37.5 C 100 21 H 125/60 H 93 01/11/17 04:00 01/11/17 09:00 01/11/17 06:00 01/11/17 09:00 01/11/17 08:35 Microbiology 01/07/17 16:52 Blood Panel (PCR) - Final Blood No Organism Detected 01/07/17 19:45 Gram Stain - Final Peritoneal Fluid - Eswab Laboratory Results 01/10/17 04:22 01/11/17 05:23 01/10/17 01/11/17 01/12/17 05:59 05:59 05:59 Intake Total 2441.9 2858.0 Output Total 1988 2170 Balance 452.9 688.0 PT 17.9 SEC (12.0-15.0) H 01/07/17 17:10 INR 1.48 (0.83-1.16) H 01/07/17 17:10 Laboratory Tests 01/11/17 05:55 pCO2 38 pO2 69 ABG pH 7.33 L O2 Concentration % 45 Actual Respiration Rate 18 CXR 01/10: Left basilar atelectasis. ETT OK. Images reviewed. Physical Exam - Physical Exam General Appearance: other (sedated but squeezes hand to command.) EENT: normal ENT inspection Neck: normal inspection Respiratory: lungs clear, normal breath sounds Cardiac/Chest: regular rate, rhythm, No edema Abdomen: normal bowel sounds, non-tender Skin: normal color, warm/dry Extremities: normal inspection Neuro/Psych: alert, normal mood/affect, oriented x 3 ICD10 Worksheet Patient Problems: Problems Problem Status Onset Diverticulitis Acute
[2017-01-11] MEDS ORDERED: HEPARIN 10,000 UNIT/10 ML MDV IVP PRN (10:55)
[2017-01-11 11:19] LABS: ABSOLUTE NRBC COUNT 0.16 10^3/uL (0-0.01); ADD DIFF? YES; ADD MORPH? NO; ADD SCAN? NO; ATYPICAL LYMPHOCYTE FLAG 0 (0-99); FRAGMENT RBC FLAG 0 (0-99); HEMATOCRIT 26.9 % (38.0-47.0); HEMOGLOBIN 8.8 g/dL (12.6-16.3); LEFT SHIFT FLG 60 (0-99); LIPEMIA HEMOLYSIS FLAG 80 (0-99); MEAN CELL HEMOGLOBIN 30.3 pg (27.9-34.1); MEAN CELL HEMOGLOBIN CONCENTR. 32.7 g/dL (32.4-36.7); MEAN CELL VOLUME 92.8 fL (81.5-99.8); MEAN PLATELET VOLUME 11.3 fL (8.7-11.7); PLATELET CLUMPS FLAG 0 (0-99); PLATELET COUNT 213 10^3/uL (150-400); RED CELL DISTRIBUTION WIDTH 16.3 % (11.5-15.2)
--- NOTE | 2017-01-11 11:25 | SOAPPROG ---
SOAP Progress Note Assessment/Plan: Assessment: Improving. Possible extubation today; if so plan speech eval to progress diet. O/w may require TF. Once stabilized will consider tube check for poss clotted FRANK. D/w family, questions answered. Plan: 01/05/17 09:04 01/06/17 12:35 01/07/17 08:35 01/08/17 09:46 01/08/17 09:50 01/09/17 11:01 01/10/17 12:54 01/11/17 11:23 Subjective: No events, currently on weaning trial. Objective: Vital Signs Temp Pulse Resp BP Pulse Ox 37.5 C 100 21 H 125/60 H 93 01/11/17 04:00 01/11/17 09:00 01/11/17 06:00 01/11/17 09:00 01/11/17 08:35 Microbiology 01/07/17 16:52 Blood Panel (PCR) - Final Blood No Organism Detected 01/07/17 19:45 Gram Stain - Final Peritoneal Fluid - Eswab Laboratory Results 01/11/17 05:23 01/10/17 01/11/17 01/12/17 05:59 05:59 05:59 Intake Total 2441.9 2858.0 Output Total 1988 2170 Balance 452.9 688.0 PT 17.9 SEC (12.0-15.0) H 01/07/17 17:10 INR 1.48 (0.83-1.16) H 01/07/17 17:10 Intubated, responsive Irreg Abd soft Inc C/D/I with some ecchymosis FRANK with minimal serous fluid. ICD10 Worksheet Patient Problems: Problems Problem Status Onset Diverticulitis Acute - ICD10 Problem Qualifiers (1) Diverticulitis Qualifiers: Diverticulitis site: D Diverticulitis bleeding: D Diverticulitis complication: D
[2017-01-11 12:29] LABS: PLATELET ESTIMATE ADEQUATE (ADEQ); POLYCHROMASIA 1+; TOXIC VACUOLIZATION PRESENT
[2017-01-11 12:30] LABS: MACROCYTES 1+
[2017-01-11] MEDS ORDERED: D5W 1/2 NS 1,000 ML IV SCH (12:45)
--- NOTE | 2017-01-11 12:49 | SOAPPROG ---
SOAP Progress Note Assessment/Plan: Assessment/Plan: NANCY: likely ATN, now improving with Cr down from pea of 3.0 to 1.8 today, nonoliguric with good UOP, lytes ok. - No need for HD. - Will change IVFs to D5 1/2NS @ 50ml/hr. - Will continue to monitor. - Avoid MOM, morphine, demerol, NSAIDS, contrast, aminoglycosides, fleets, and other nephrotoxins. Hypervolemia: will change IVFs to above at lower rate. Would avoid diuretics as pt already has good UOP. Subjective: No acute events overnight. Pt is not on pressors, BP ok, mostly just weak. Drain is not draining too well today, IR being consulted. Pt having good UOP now, 2L in past 24 hours. Objective: Vital Signs Temp Pulse Resp BP Pulse Ox 37.7 C 108 H 27 H 137/85 H 92 01/11/17 08:00 01/11/17 11:45 01/11/17 10:00 01/11/17 10:00 01/11/17 11:45 Microbiology 01/07/17 16:52 Blood Panel (PCR) - Final Blood No Organism Detected 01/07/17 19:45 Gram Stain - Final Peritoneal Fluid - Eswab Laboratory Results 01/11/17 10:55 01/11/17 05:23 01/10/17 01/11/17 01/12/17 05:59 05:59 05:59 Intake Total 2441.9 2858.0 Output Total 1988 2170 Balance 452.9 688.0 PT REJ 01/11/17 11:00 INR REJ 01/11/17 11:00 General: no acute distress Eyes; PERRL OP: intubated CV: RRR Resp: intubated and on vent Ext: trace edema all extremities Neuro; no asterixis : feldman cath in place with urine draining ICD10 Worksheet Patient Problems: Problems Problem Status Onset Diverticulitis Acute
--- NOTE | 2017-01-11 14:09 | WOCRNPDOC ---
WOCRN Advanced Assessment Note - Skin Integrity Problem, Advanced Assess Right Neck Abrasion Dressing Type: Open to Air Exudate Amount: None Exudate Characteristic(s): None Integumentary Issue Intervention: Dressing Applied, Hydrogel Applied Charity Wound Tissue: Intact Charity Wound Swelling: None Wound Bed Color: Red Wound Bed Constitution: Smooth Tissue Site Measurement - Head-to-Toe Length X Width X Depth (cm): [id number] Skin Integrity Problem Comment: Linear de-roofed blister-like abrasion noted on R side of patient's neck, consistent w/ injury r/t tape removal. Charity-wound skin intact w/ no associated swelling or erythema. Site covered w/ Hydrogel and Allevyn Life dressing. manager militaryEH Denis present and assisting. Wound care does not need to follow this wound going forward.
[2017-01-11 14:32] LABS: INR 1.24 (0.83-1.16); PROTIME(PATIENT) 15.6 SEC (12.0-15.0)
[2017-01-11 14:33] LABS: APTT 32.2 SEC (23.0-38.0)
[2017-01-11] MEDS: DILTIAZEM 125 MG in D5W 125 ML IV SCH (19:17)
[2017-01-11] MEDS: fentaNYL/NACL 100 ML IV SCH (20:04)
[2017-01-11] MEDS: CETIRIZINE 10 MG TAB TUBE SCH (21:39)
[2017-01-11] MEDS: ACETAMINOPHEN 650 MG/20.3 ML UDCUP PO PRN (21:39)
[2017-01-11] MEDS: FAMOTIDINE 20 MG/NACL 50 ML IV SCH (21:40)
[2017-01-12] MEDS: DILTIAZEM 125 MG in D5W 125 ML IV SCH ×3 (03:12→20:07)
[2017-01-12 04:57] LABS: ABSOLUTE NRBC COUNT 0.11 10^3/uL (0-0.01); ADD DIFF? YES; ADD MORPH? NO; ADD SCAN? NO; ATYPICAL LYMPHOCYTE FLAG 50 (0-99); FRAGMENT RBC FLAG 0 (0-99); HEMATOCRIT 27.4 % (38.0-47.0); HEMOGLOBIN 8.9 g/dL (12.6-16.3); LEFT SHIFT FLG 60 (0-99); LIPEMIA HEMOLYSIS FLAG 80 (0-99); MEAN CELL HEMOGLOBIN 29.7 pg (27.9-34.1); MEAN CELL HEMOGLOBIN CONCENTR. 32.5 g/dL (32.4-36.7); MEAN CELL VOLUME 91.3 fL (81.5-99.8); MEAN PLATELET VOLUME 10.2 fL (8.7-11.7); NRBC-AUTO% 0.6 % (0.0-0.2); PLATELET CLUMPS FLAG 10 (0-99); PLATELET COUNT 257 10^3/uL (150-400); RED CELL DISTRIBUTION WIDTH 16.3 % (11.5-15.2)
[2017-01-12 05:04] LABS: ALANINE AMINOTRANSFERASE 156 IU/L (9-52); ALBUMIN 2.3 g/dL (3.5-5.0); ALKALINE PHOSPHATASE 112 IU/L (38-126); ANION GAP 6 mEq/L (8-16); ASPARTATE AMINOTRANSFERASE 115 IU/L (14-46); BILIRUBIN,TOTAL 4.8 mg/dL (0.1-1.4); CALCIUM 8.1 mg/dL (8.5-10.4); CARBON DIOXIDE 23 mEq/l (22-31); CHLORIDE 118 mEq/L (97-110); CREATININE 1.3 mg/dL (0.6-1.0); GLOMERULAR FILTRATION RATE 40; GLUCOSE 124 mg/dL (70-100); POTASSIUM 4.8 mEq/L (3.5-5.2); SODIUM 147 mEq/L (134-144); TOTAL PROTEIN 4.7 g/dL (6.3-8.2)
[2017-01-12 05:10] LABS: BILIRUBIN-CONJUGATED 3.2 mg/dL (0.0-0.5); BILIRUBIN-UNCONJUGATED 1.6 mg/dL (0.0-1.1)
[2017-01-12 05:24] LABS: HYPOCHROMIA 1+; MACROCYTES 1+; MICROCYTES 1+; POLYCHROMASIA 1+
[2017-01-12 05:25] LABS: PLATELET ESTIMATE ADEQUATE (ADEQ)
[2017-01-12] MEDS: GABAPENTIN 100 MG CAP TUBE SCH ×2 (07:10→21:27)
[2017-01-12] MEDS: AMIODARONE HCL 200 MG TAB TUBE SCH (07:10)
[2017-01-12] MEDS: METOPROLOL TARTRATE 25 MG TAB TUBE SCH ×2 (07:11→21:27)
[2017-01-12] MEDS: ERTAPENEM 0.5 GM in NS 100 ML IV SCH ×2 (07:11→11:40)
[2017-01-12] MEDS: CHLORHEXIDINE GLUCONATE 15 ML UDL PO SCH ×2 (07:11→21:27)
--- NOTE | 2017-01-12 09:12 | SOAPPROG ---
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 -will change fluid to D5W -this should correct on own in the next 24-48 hours, but the MIVF should prevent further worsening of sodium level 01/12/17 09:09 Subjective: sedated on vent Objective: Vital Signs Temp Pulse Resp BP Pulse Ox 38.0 C 119 H 24 H 150/71 H 95 01/12/17 06:00 01/12/17 08:40 01/12/17 08:40 01/12/17 08:40 01/12/17 08:40 Microbiology 01/07/17 16:52 Blood Panel (PCR) - Final Blood No Organism Detected 01/07/17 19:45 Gram Stain - Final Peritoneal Fluid - Eswab Laboratory Results 01/12/17 04:30 01/12/17 04:30 01/11/17 01/12/17 01/13/17 05:59 05:59 05:59 Intake Total 2858.0 2778 Output Total 2170 3070 Balance 688.0 -292 PT 15.6 SEC (12.0-15.0) H 01/11/17 13:45 INR 1.24 (0.83-1.16) H 01/11/17 13:45 Physical Exam - Physical Exam General Appearance: no apparent distress EENT: ET tube Neck: normal inspection Respiratory: decreased breath sounds, other (tachypneic and shallow on CPAP) Cardiac/Chest: regular rate, rhythm Abdomen: normal bowel sounds, other (ostomy, drain, incision) Extremities: swelling (unchanged) ICD10 Worksheet Patient Problems: Problems Problem Status Onset Diverticulitis Acute
[2017-01-12] MEDS ORDERED: D5W 1,000 ML IV SCH (09:15)
[2017-01-12] MEDS ORDERED: ERTAPENEM 1 GM in NS 100 ML IV SCH (09:30)
--- NOTE | 2017-01-12 11:19 | PDINTPN ---
Acetylene Operator Progress Note Assessment/Plan: Assessment: 71 F with diverticulitis admitted 01/04 with abdominal pain and had robotic sigmoid hemicolectomy. There were no obvious complications and she was sent to the floor, but developed increasing pain and somnolence so was transferred to the ICU 01/[address] revealing an 11 cm pelvic hematoma and extraluminal air. She returned to the OR for evacuation of the hematoma and creation of an ileostomy. She was extubated the next morning, but developed atrial fibrillation , which she may have had twice in previous years (family was uncertain). * Peritonitis following sigmoid resection complicated by anastamotic leak. Blood cultures are currently growing a GNR, and she is being treated with ertapenem. She has minimal pressor requirements and her wbc was reduced 01/08. Her WBC is slightly higher today, but she remains afebrile. She has some dark liquid ostomy output, serosanguinous fluid from drain. Continue to monitor cultures, fever, and hemodynamic stability. * Afib with RVR. She was initially treated with amiodarone, followed by a brief trial of esmolol (dropped BP). She got one dose of Digoxin on 01/08, but worsening renal function makes that a less desirable choice. Diltiazem was added 01/09, and rate is now well controlled with a combination of oral amio, metoprolol, and a Cardizem drip. Her echo was unremarkable as were serial troponins. * Respiratory failure with hypoxemia- presumably related to pain control, ineffective respirations, pneumonia, and possibly pulmonary edema 2/2 NANCY and afib. Her oxygen requirement had been progressing overnight and she barely maintained a sat of 89% on 15 lpm oxymask. Given her poor mentation, she underwent urgent (non-emergent) intubation 01/09, hoping that either she "auto- diureses" or gets HD to improve her oxygenation. She is on CPAP this morning. Weaning today, doing well without distress. However, she is not alert enough today to consider extubation. 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 Her UOP has increased and her creatine and K decreased without HD. Getting IVF, I>O. Has hypernatremia as part of recovery. Renal following. * Transaminitis- she had a small increase in AST/ALT likely 2/2 decreased perfusion. Mildly elevated and stable today. * Her WBC remains elevated, is likely related to stress of resolving peritonitis and ongoing rapid afib. Afebrile. * Anemia- stable HCT with no evidence of bleeding. Plan: Reduce/hold sedation. May try to extubate if weans well. IR to image drain with dye today. Start full anticoagulation. Start TF via OGT. ANDRÉS prior to extubation. D/W family. 01/12/17 11:51 Subjective: Minimally responsive. Objective: Vital Signs Temp Pulse Resp BP Pulse Ox 38.2 C 106 H 22 H 134/73 H 93 01/12/17 10:00 01/12/17 10:00 01/12/17 10:00 01/12/17 10:00 01/12/17 10:00 Microbiology 01/07/17 16:52 Blood Panel (PCR) - Final Blood No Organism Detected 01/07/17 19:45 Gram Stain - Final Peritoneal Fluid - Eswab Laboratory Results 01/12/17 04:30 01/12/17 04:30 01/11/17 01/12/17 01/13/17 05:59 05:59 05:59 Intake Total 2858.0 2778 Output Total 2170 3070 Balance 688.0 -292 PT 15.6 SEC (12.0-15.0) H 01/11/17 13:45 INR 1.24 (0.83-1.16) H 01/11/17 13:45 CXR: Stable LLL pneumonia. New right effusion. Images reviewed. Physical Exam - Physical Exam General Appearance: No alert (Minimally resonsive.) EENT: normal ENT inspection Neck: normal inspection Respiratory: No lungs clear (decreased BS bases) Cardiac/Chest: edema (1+), irregularly irregular Abdomen: non-tender, soft, No normal bowel sounds (diminished) Skin: normal color, warm/dry Extremities: normal inspection Neuro/Psych: No alert, No oriented x 3 ICD10 Worksheet Patient Problems: Problems Problem Status Onset Diverticulitis Acute
--- NOTE | 2017-01-12 13:49 | SOAPPROG ---
SOAP Progress Note Assessment/Plan: Assessment: New fever with increasing WBC. Plan CT abd to assess for fluid collection as FRANK not draining after flushing. Plan: 01/05/17 09:04 01/06/17 12:35 01/07/17 08:35 01/08/17 09:46 01/08/17 09:50 01/09/17 11:01 01/10/17 12:54 01/11/17 11:23 01/12/17 13:46 Subjective: Temp over 38 last PM. No significant change in mental status. Objective: Vital Signs Temp Pulse Resp BP Pulse Ox 38.2 C 102 H 23 H 134/73 H 93 01/12/17 10:00 01/12/17 11:46 01/12/17 11:46 01/12/17 10:00 01/12/17 11:46 Microbiology 01/07/17 16:52 Blood Panel (PCR) - Final Blood No Organism Detected 01/07/17 19:45 Gram Stain - Final Peritoneal Fluid - Eswab Laboratory Results 01/12/17 04:30 01/12/17 04:30 01/11/17 01/12/17 01/13/17 05:59 05:59 05:59 Intake Total 2858.0 2778 Output Total 2170 3070 Balance 688.0 -292 PT 15.6 SEC (12.0-15.0) H 01/11/17 13:45 INR 1.24 (0.83-1.16) H 01/11/17 13:45 Intubated, responds to questions Irreg Abd soft, [employer] C/D/I FRANK serous ICD10 Worksheet Patient Problems: Problems Problem Status Onset Diverticulitis Acute - ICD10 Problem Qualifiers (1) Diverticulitis Qualifiers: Diverticulitis site: D Diverticulitis bleeding: D Diverticulitis complication: D
[2017-01-12] MEDS: PIPERACILLIN/TAZO 3.375 GM/DEX 50 ML IV SCH ×3 (14:37→23:17)
--- NOTE | 2017-01-12 16:31 | GCON ---
[f rep st] CONSULTATION INFECTIOUS DISEASE CONSULTATION DATE OF CONSULTATION: 01/12/2017 REFERRING PHYSICIAN: Willie Smith MD REASON FOR CONSULTATION: Fevers, leukocytosis, for further evaluation and opinion. CHIEF COMPLAINT: Fevers. HISTORY OF PRESENT ILLNESS: This is a 71-year-old female with a past medical history sign ificant for atrial fibrillation, tongue cancer, ureteral obstruction, diverticulitis, evaluated on t he 04 of January due to increasing abdominal pain. She had a CAT scan of the abdomen done, which sh owed diverticulitis. She was taken to the OR and underwent a sigmoid colectomy by robotic surgery w ith lysis of adhesions. She was given perioperative cefoxitin at the time. She was doing relativel y well postoperatively until around the 07 of January when she started to spike fevers. She had a f ollowup CAT scan done at that time, which showed a pneumoperitoneum suspicious for a leak, along wit h a large pelvic hematoma of around 11 cm. Blood cultures x2 sets were drawn then, were growing out Bacteroides vulgatus group. She was taken back to the OR for a washout and evacuation of the hemat salvatore. She was given perioperative cephalexin at the time, and then placed on Invanz therapy. She wa s initially extubated after the surgery, but then reintubated on the 09 of January emergently. She has had ongoing intermittent spiking temperatures since the 07 of January. She has also had atrial fibrillation with rapid ventricular rate as well. Serial imaging of her chest has shown development of a left lower lobe consolidation, which was initially felt to be atelectasis, but it was a concer n for pneumonia as well. Her white blood cell count has steadily trended up over the last few days to its current status of 18.4 with 10% bandemia. She remains on the ventilator. Infectious Disease is now consulted for further evaluation and opinion. History is obtained purely from the medical r ecords and other providers on the case as patient is intubated. She is not sedated, but is not resp onding much. REVIEW OF SYSTEMS: Could not be obtained given the above. PAST MEDICAL HISTORY: Significant for diverticulitis, hypertension, ureteral obstruction with right renal atrophy, GERD, atrial fibrillation, osteoarthritis, tongue cancer, peripheral neuropathy. PAST SURGICAL HISTORY: Significant for recent right sigmoid hemicolectomy, total abdominal hysterec ion, bilateral salpingo-oophorectomy, bladder suspension, rectocele repair, resection of tongue can cer. ALLERGIES: No known drug allergies. SOCIAL HISTORY: She is a nonsmoker. Does not drink alcohol. She is originally from [place], moved h ere to [place] in 1975. Lives with her . FAMILY HISTORY: No significant family history. MEDICATIONS: As per MAR. PHYSICAL EXAMINATION: VITAL SIGNS: Temperature current 38.2, pulse 102, respiratory rate is 23, sa turation is 90%. She is on 40% FiO2. Blood pressure 134/73. GENERAL: She is intubated in intensi ve care unit, lightly sedated but not really opening her eyes to commands. She flinches to verbal c ommands, but is still not able to open her eyes. She squeezes hand intermittently to verbal command s. HEENT: Eyes: No conjunctival injection noted. ET tube in place. CARDIOVASCULAR: S1, S2. Re gular rate and rhythm. RESPIRATORY: Mild coarse breath sounds anteriorly. ABDOMEN: Intermittent bowel sounds noted. Obese. She has a colostomy in place. [place] in the right and left lower quad rants with some drainage noted on the left side. She has a FRANK drain noted with minimal serosanguine ous drainage. SKIN: Left abdomen, flank, into the back she has ecchymosis noted there, moderate-to -large in distribution. Mild scabbing on the right lateral ankle noted. She has a central line in place. LABORATORY DATA: White blood cell count 18.4, hemoglobin 8.9, platelets 257, neutrophil count 67%, 10% bandemia. Sodium 147, potassium 4.8, chloride 118, bicarb 23, BUN is 57, creatinine is 1.3. T 115, ALT 156, alk phos 112, total bilirubin 4.8. MICROBIOLOGY: Blood cultures on the 07 of January showed Bacteroides vulgatus. Peritoneal swab fro m the time of her second abdominal surgery with 1+ polys, 1+ gram-positive rods, 1+ gram-negative ro ds, 1+ gram-positive cocci in chains and the culture was mixed intestinal kecia without any specific organism identified. Chest x-ray today with stable left lower lobe consolidation pneumonia with ai r bronchograms and small bilateral effusions. IMAGING RESULTS: Have all been reviewed by me and are stated above. ASSESSMENT: 1. Fevers and leukocytosis. 2. Peritonitis secondary to anastomotic leak. Will rule out new abscess collection. 3. Left abdomen, flank, and back ecchymoses. Rule out retroperitoneal hemorrhage/hematoma. PLAN: At this point in time, patient is currently on Invanz therapy, has had continued intermittent spiking of her temperature, along with a rising white blood cell count. Would recommend blood cult ures x2 sets, 1 set from the central line, 1 set from her peripheral vein. Recommend sputum culture for further evaluation of her pneumonia. Agree with CT of the abdomen and pelvis to further evalua te for abscess cavities and/or a retroperitoneal bleed. We will discontinue Invanz and broaden her antimicrobial coverage to vancomycin and Zosyn renally dosed, along with micafungin after cultures a re drawn for better overall broader coverage for enterococci, pseudomonas, typical gram-negative [place] erobes, along with fungal coverage. Plan of care was discussed with the patient's , and hafsa ent's was also updated on her current results that are available at present. The care was c oordinated and discussed with the [facility] department supervisor team and her RN. Thank you very much for the opportunity to care for your patient in consultation. /[id number]/MODL
[2017-01-12] MEDS: VANCOMYCIN 1.5 GM in D5W 250 ML IV SCH (16:32)
[2017-01-12] MEDS: MICAFUNGIN NA 100 MG in NS 100 ML IV SCH (16:33)
--- NOTE | 2017-01-12 19:16 | SOAPPROG ---
SOAP Progress Note Assessment/Plan: Assessment: 1. atrial fibrillation with RVR: 3 Days duration at this point. 2. hypertensive cardiomyopathy. Preserved LV function. 3. elevation in troponin with negative cpk. : metabolic etiology in the setting or multiorgan failure 3 acute renal failure with volume overload 4. s/p Ileostomy 5. gm negative bacteremia. 6. post-operative anemia s/p transfusion 7. obtundation impression: Day 1. Multiorgan failure with rising creatinine in the setting of gram-negative bacteremia post ileostomy. Persistent atrial fibrillation with rapid ventricular response despite IV digoxin amiodarone overnight. Improvement in systemic blood pressure.Improvement in mental status as she is responding to simple commands. Cardiac enzymes, EKG do not suggest acute cardiac injury. Echocardiogram confirms normal left ventricular systolic function with a hypertensive cardiomyopathy. No indications for urgent cardioversion at this point. Recommend addition of diltiazem today. Complete amiodarone loading today. Plan for maintenance at 0.5 milligrams/hour. Patient would benefit from anticoagulation at some point. Agree with renal consultation for acute renal failure in the setting of decreased urine output and volume overload. Agree with IV antibiotics and continued support the setting of gram-negative bacteremia. 01/09/17 08:14 Impression: Day 2. Significant improvement in atrial fibrillation rate over the last 24 hours. Transition from IV amiodarone to oral. Continue diltiazem drip in the short term. Continue ICU supportive care. 01/10/17 11:12 Impression Day 3. Persistent atrial fibrillation. Slow and steady improvement. Rate remains controlled on amiodarone and low dose metoprolol orally and IV diltiazem. Continue supportive care. 01/11/17 08:46 impression day 4. persistent atrial fibrillation. Stable hemodynamics on current medical therapy. Anticoagulated at this point. Continue rate control strategy with considerations for cardioversion prior to discharge. In light of the need for anticoagulation for 30 days uninterrupted would like to know for sure that she will not require further intervention. Discussed with family. 01/12/17 19:15 Subjective: Patient opens eyes to command Objective: Vital Signs Temp Pulse Resp BP Pulse Ox 37.4 C 94 23 H 132/74 H 95 01/12/17 17:50 01/12/17 17:50 01/12/17 17:50 01/12/17 17:50 01/12/17 17:50 Microbiology 01/07/17 19:45 Gram Stain - Final Peritoneal Fluid - Eswab 01/07/17 16:52 Blood Panel (PCR) - Final Blood No Organism Detected Laboratory Results 01/12/17 04:30 01/12/17 04:30 01/11/17 01/12/17 01/13/17 05:59 05:59 05:59 Intake Total 2858.0 2778 1088 Output Total 2170 3070 1550 Balance 688.0 -292 -462 PT 15.6 SEC (12.0-15.0) H 01/11/17 13:45 INR 1.24 (0.83-1.16) H 01/11/17 13:45 Physical Exam - Physical Exam General Appearance: obtunded Respiratory: lungs clear, rhonchi, other ( remains intubated) Cardiac/Chest: irregularly irregular ICD10 Worksheet Patient Problems: Problems Problem Status Onset Diverticulitis Acute
[2017-01-12] MEDS: CETIRIZINE 10 MG TAB TUBE SCH (21:27)
[2017-01-12] MEDS: FAMOTIDINE 20 MG/NACL 50 ML IV SCH (21:27)
[2017-01-12 21:32] LABS: ANION GAP 7 mEq/L (8-16); CALCIUM 8.4 mg/dL (8.5-10.4); CARBON DIOXIDE 24 mEq/l (22-31); CHLORIDE 112 mEq/L (97-110); CREATININE 1.2 mg/dL (0.6-1.0); GLOMERULAR FILTRATION RATE 44; GLUCOSE 121 mg/dL (70-100); POTASSIUM 4.6 mEq/L (3.5-5.2); SODIUM 143 mEq/L (134-144)
[2017-01-12] MEDS: ACETAMINOPHEN 650 MG/20.3 ML UDCUP PO PRN (21:49)
[2017-01-12] MEDS: D5W 1/4 NS 1,000 ML IV SCH ×2 (22:12→23:17)
[2017-01-13] MEDS: fentaNYL/NACL 100 ML IV SCH (02:05)
[2017-01-13] MEDS: VANCOMYCIN 1.5 GM in D5W 250 ML IV SCH (02:05)
[2017-01-13 03:12] LABS: ALBUMIN 2.4 g/dL (3.5-5.0); ANION GAP 7 mEq/L (8-16); CALCIUM 8.3 mg/dL (8.5-10.4); CARBON DIOXIDE 24 mEq/l (22-31); CHLORIDE 115 mEq/L (97-110); CREATININE 1.2 mg/dL (0.6-1.0); GLOMERULAR FILTRATION RATE 44; GLUCOSE 136 mg/dL (70-100); POTASSIUM 4.6 mEq/L (3.5-5.2); SODIUM 146 mEq/L (134-144)
[2017-01-13] MEDS: PIPERACILLIN/TAZO 3.375 GM/DEX 50 ML IV SCH ×3 (05:09→17:53)
[2017-01-13] MEDS: GABAPENTIN 100 MG CAP TUBE SCH ×2 (08:36→21:10)
[2017-01-13] MEDS: AMIODARONE HCL 200 MG TAB TUBE SCH (08:36)
[2017-01-13] MEDS: METOPROLOL TARTRATE 25 MG TAB TUBE SCH (08:36)
[2017-01-13] MEDS: MICAFUNGIN NA 100 MG in NS 100 ML IV SCH (08:37)
[2017-01-13] MEDS: CHLORHEXIDINE GLUCONATE 15 ML UDL PO SCH ×2 (08:37→21:09)
[2017-01-13] MEDS ORDERED: ERTAPENEM 1 GM in NS 100 ML IV SCH (09:00)
--- NOTE | 2017-01-13 09:42 | PDINTPN ---
Ortho Tech Progress Note Assessment/Plan: Assessment: 71 F with diverticulitis admitted 01/04 with abdominal pain and had robotic sigmoid hemicolectomy. There were no obvious complications and she was sent to the floor, but developed increasing pain and somnolence so was transferred to the ICU 01/[address] revealing an 11 cm pelvic hematoma and extraluminal air. She returned to the OR for evacuation of the hematoma and creation of an ileostomy. She was extubated the next morning, but developed atrial fibrillation , which she may have had twice in previous years (family was uncertain). * Peritonitis following sigmoid resection complicated by anastamotic leak. Blood cultures are currently growing a GNR, and she is being treated with ertapenem. She has minimal pressor requirements and her wbc was reduced 01/08. CT Abdomen shows some residual fluid collections. * Afib with RVR. She was initially treated with amiodarone, followed by a brief trial of esmolol (dropped BP). She got one dose of Digoxin on 01/08, but worsening renal function makes that a less desirable choice. Diltiazem was added 01/09, and rate is now well controlled with a combination of oral amio, metoprolol, and a Cardizem drip. Her echo was unremarkable as were serial troponins. * Respiratory failure with hypoxemia- presumably related to pain control, ineffective respirations, pneumonia, and possibly pulmonary edema 2/2 NANCY and afib. Her oxygen requirement had been progressing overnight and she barely maintained a sat of 89% on 15 lpm oxymask. Given her poor mentation, she underwent urgent (non-emergent) intubation 01/09, hoping that either she "auto- diureses" or gets HD to improve her oxygenation. She is on CPAP this morning. Weaning today, doing well without distress. However, she is not alert enough today to consider extubation. 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 Her UOP has increased and her creatine and K decreased without HD. Getting IVF, I>O. Has hypernatremia as part of recovery, now on D5 NS. Renal following. * Transaminitis- she had a small increase in AST/ALT likely 2/2 decreased perfusion. Mildly elevated and stable today. * Her WBC elevated, today is pending, is likely related to stress of resolving peritonitis and ongoing rapid afib. No fever since last night. * Anemia- stable HCT with no evidence of bleeding. Plan: Reduce/hold sedation. May try to extubate if weans well. Continue full anticoagulation for AF. Start TF via OGT. ANDRÉS prior to discharge. Check WBC. Continue antibiotics. Will follow clinically to determine if abdominal fluid collections are contributing to her illness and warrant drainage. D/W family. 01/13/17 09:45 Subjective: Minimally responsive on ventilator. Objective: Vital Signs Temp Pulse Resp BP Pulse Ox 36.9 C 124 H 25 H 145/87 H 96 01/13/17 04:00 01/13/17 08:36 01/13/17 06:00 01/13/17 08:36 01/13/17 08:05 Microbiology 01/07/17 16:52 Blood Culture - Final Blood Bacteroides Vulgatus Group Blood Panel (PCR) - Final No Organism Detected 01/07/17 22:29 Blood Culture - Final Blood 01/12/17 14:40 - Final Sputum, Induced/Suctioned 01/07/17 19:45 Gram Stain - Final Peritoneal Fluid - Eswab Laboratory Results 01/12/17 04:30 01/13/17 02:50 01/12/17 01/13/17 01/14/17 05:59 05:59 05:59 Intake Total 2778 2958 Output Total 3070 4765 Balance -292 -1807 PT 15.6 SEC (12.0-15.0) H 01/11/17 13:45 INR 1.24 (0.83-1.16) H 01/11/17 13:45 CT Abdomen: 6 cm and 3 cm residual fluid collections. Images reviewed. Physical Exam - Physical Exam General Appearance: alert, no apparent distress EENT: normal ENT inspection Neck: normal inspection Respiratory: lungs clear, normal breath sounds Cardiac/Chest: irregularly irregular, No edema Abdomen: non-tender, soft, No normal bowel sounds (diminished but present) Skin: normal color, warm/dry Extremities: normal inspection Neuro/Psych: No alert, No normal mood/affect, No oriented x 3 ICD10 Worksheet Patient Problems: Problems Problem Status Onset Diverticulitis Acute
--- NOTE | 2017-01-13 09:44 | SOAPPROG ---
SOAP Progress Note Assessment/Plan: Assessment: Plan to start TF as extubation unlikely. Cont FRANK/abx, d/w ID. Plan: 01/05/17 09:04 01/06/17 12:35 01/07/17 08:35 01/08/17 09:46 01/08/17 09:50 01/09/17 11:01 01/10/17 12:54 01/11/17 11:23 01/12/17 13:46 01/13/17 09:42 Subjective: No events, some pain meds resumed overnight. Objective: Vital Signs Temp Pulse Resp BP Pulse Ox 36.9 C 124 H 25 H 145/87 H 96 01/13/17 04:00 01/13/17 08:36 01/13/17 06:00 01/13/17 08:36 01/13/17 08:05 Microbiology 01/07/17 16:52 Blood Culture - Final Blood Bacteroides Vulgatus Group Blood Panel (PCR) - Final No Organism Detected 01/07/17 22:29 Blood Culture - Final Blood 01/12/17 14:40 - Final Sputum, Induced/Suctioned 01/07/17 19:45 Gram Stain - Final Peritoneal Fluid - Eswab Laboratory Results 01/12/17 04:30 01/13/17 02:50 01/12/17 01/13/17 01/14/17 05:59 05:59 05:59 Intake Total 2778 2958 Output Total 0489 1778 Balance -292 -1807 PT 15.6 SEC (12.0-15.0) H 01/11/17 13:45 INR 1.24 (0.83-1.16) H 01/11/17 13:45 Intubated, sedated Irreg Abd soft, inc C/D/I Ostomy functioning FRANK serous ICD10 Worksheet Patient Problems: Problems Problem Status Onset Diverticulitis Acute - ICD10 Problem Qualifiers (1) Diverticulitis
--- NOTE | 2017-01-13 13:56 | SOAPPROG ---
SOAP Progress Note Assessment/Plan: Assessment: 1. NANCY. Ischemic + contrast related ATN. Now in diuretic phase of recovery. Creat falling nicely. 1.2 today. Avoid nephrotoxins, hypotension. 2. Hypernatremia. Getting free H2O 100cc q4h + d5 1/4 ns at 50/h. D/c IVF. Increase free H2O to 100cc q2h. 3. Abdominal sepsis. S/p ileostomy. Cont abx, drains. 4. AF/RVR. On dilt gtt for rate control. Plan: 01/13/17 13:56 01/13/17 14:00 Subjective: No new events to report. Objective: Vital Signs Temp Pulse Resp BP Pulse Ox 36.9 C 103 H 25 H 145/87 H 96 01/13/17 04:00 01/13/17 11:40 01/13/17 06:00 01/13/17 08:36 01/13/17 11:40 Microbiology 01/07/17 16:52 Blood Culture - Final Blood Bacteroides Vulgatus Group Blood Panel (PCR) - Final No Organism Detected 01/07/17 22:29 Blood Culture - Final Blood 01/12/17 14:40 - Final Sputum, Induced/Suctioned 01/07/17 19:45 Gram Stain - Final Peritoneal Fluid - Eswab Laboratory Results 01/12/17 04:30 01/13/17 02:50 01/12/17 01/13/17 01/14/17 05:59 05:59 05:59 Intake Total 2778 2958 Output Total 3070 4765 Balance -292 -1807 PT 15.6 SEC (12.0-15.0) H 01/11/17 13:45 INR 1.24 (0.83-1.16) H 01/11/17 13:45 Intubated, critically ill appearing, obese wf IRIR, tachy, no m/g/r CTAB Abdomen obese; drain in place 1+ LE edema Lisa 3/4 full with dark jaspreet urine ICD10 Worksheet Patient Problems: Problems Problem Status Onset Diverticulitis Acute
--- NOTE | 2017-01-13 14:03 | PCMIDPN ---
Assessment/Plan: # Sepsis secondary to Peritonitis and bacteremia with bacteroides secondary to perforation s/p washout and ileostomy on 01/08. Patient with fever and worsening leukocytosis. Small residual fluid collection 6x5cm,. Reviewed CT scan with Radiology, residual fluid collections are fairly small will hold off on drainage at this point. Could consider other sources such as VAP, line infection. Since broadening antibiotics yesterday oxygenation requirements improved, down to FiO2 of 40% # Possible Line infection with coag-negative staph, line to be removed today # Renal insufficiency, CrCl 50, slight improvement in creatinine today Recommendations --Dose Vancomycin cautiously with co-admin Zosyn , decrease dose to 1 g IV Q 12 --continue Zosyn at 3.375 IV Q 6 which would likely cover Pseudomonas at her level renal impairment --reviewed CT scan with Radiology, residual fluid collections are fairly small will hold off on drainage at this point. microbiology 01/07 peritoneal cx: mixed intestinal kecia 01/07 blood cx 1 set Bacteroides 01/12 sputum cultures Gram stain is polymicrobial, culture pending 01/12 blood cultures 1/2 coagulase negative Staph Medications Vancomycin 1.5 g IV Q 12, # 1 Micafungin 100 mg IV daily, #2 Zosyn 3.375 g IV Q 6, #1 Subjective: no pressors on amio/dilt for a fib trouble getting seal with ostomy Objective: Vital Signs Temp Pulse Resp BP Pulse Ox 36.9 C 103 H 25 H 145/87 H 96 01/13/17 04:00 01/13/17 11:40 01/13/17 06:00 01/13/17 08:36 01/13/17 11:40 Microbiology 01/07/17 19:45 Gram Stain - Final Peritoneal Fluid - Eswab 01/07/17 16:52 Blood Culture - Final Blood Bacteroides Vulgatus Group Blood Panel (PCR) - Final No Organism Detected 01/07/17 22:29 Blood Culture - Final Blood 01/12/17 14:40 - Final Sputum, Induced/Suctioned Laboratory Results 01/12/17 04:30 01/13/17 02:50 01/12/17 01/13/17 01/14/17 05:59 05:59 05:59 Intake Total 2739 5087 Output Total 2134 1580 Balance -292 -6017 - Physical Exam General Appearance: obtunded, obese, other (not following commands) EENT: pale conjunctiva, poor dentition, No thrush Respiratory: coarse breath sounds Neck: supple Cardiac/Chest: tachycardia, irregularly irregular Extremities: pedal edema, swelling (R arm swelling) Abdomen: soft, distended, other (RLQ ostomy, brown liquid in bag; L FRANK drain not function; midline surgical scar without abn.) Pelvic Exam: feldman (jaspreet urine) Skin: pallor - Line/s other Lines: other (R IJ TLC), No drainage, No erythema RUE PICC Lines: other (palpable phlebitis R anticub), No drainage, No erythema - Time Spent With Patient Time Spent with Patient: greater than 35 minutes (Cased discussed with Dr. Smith ) Time Spent with Patient: Greater than 35 minutes spent on this patients care, greater than 50% of time spent counseling, educating, and coordinating care regarding the above mentioned plan. ICD10 Worksheet Patient Problems: Problems Problem Status Onset Diverticulitis Acute
[2017-01-13] MEDS ORDERED: VANCOMYCIN 1 GM in D5W 250 ML IV SCH (14:11)
[2017-01-13 14:15] LABS: ABSOLUTE NRBC COUNT 0.06 10^3/uL (0-0.01); ADD DIFF? YES; ADD MORPH? NO; ADD SCAN? NO; ATYPICAL LYMPHOCYTE FLAG 80 (0-99); FRAGMENT RBC FLAG 0 (0-99); HEMOGLOBIN 9.8 g/dL (12.6-16.3); LEFT SHIFT FLG 70 (0-99); LIPEMIA HEMOLYSIS FLAG 80 (0-99); MEAN CELL HEMOGLOBIN 29.2 pg (27.9-34.1); MEAN CELL HEMOGLOBIN CONCENTR. 31.6 g/dL (32.4-36.7); MEAN CELL VOLUME 92.3 fL (81.5-99.8); MEAN PLATELET VOLUME 10.3 fL (8.7-11.7); NRBC-AUTO% 0.3 % (0.0-0.2); PLATELET CLUMPS FLAG 0 (0-99); PLATELET COUNT 363 10^3/uL (150-400); RED BLOOD CELL COUNT 3.36 10^6/uL (4.18-5.33); RED CELL DISTRIBUTION WIDTH 16.4 % (11.5-15.2)
[2017-01-13 14:45] LABS: PLATELET ESTIMATE ADEQUATE (ADEQ)
[2017-01-13 14:46] LABS: POLYCHROMASIA 1+; STOMATOCYTES 1+
--- NOTE | 2017-01-13 15:55 | SOAPPROG ---
SOAP Progress Note Assessment/Plan: Assessment: 1. atrial fibrillation with RVR: 3 Days duration at this point. 2. hypertensive cardiomyopathy. Preserved LV function. 3. elevation in troponin with negative cpk. : metabolic etiology in the setting or multiorgan failure 3 acute renal failure with volume overload/creatinine now at 1.2 4. s/p Ileostomy 5. gm negative bacteremia. 6. post-operative anemia s/p transfusion 7. obtundation impression: Day 1. Multiorgan failure with rising creatinine in the setting of gram-negative bacteremia post ileostomy. Persistent atrial fibrillation with rapid ventricular response despite IV digoxin amiodarone overnight. Improvement in systemic blood pressure.Improvement in mental status as she is responding to simple commands. Cardiac enzymes, EKG do not suggest acute cardiac injury. Echocardiogram confirms normal left ventricular systolic function with a hypertensive cardiomyopathy. No indications for urgent cardioversion at this point. Recommend addition of diltiazem today. Complete amiodarone loading today. Plan for maintenance at 0.5 milligrams/hour. Patient would benefit from anticoagulation at some point. Agree with renal consultation for acute renal failure in the setting of decreased urine output and volume overload. Agree with IV antibiotics and continued support the setting of gram-negative bacteremia. 01/09/17 08:14 Impression: Day 2. Significant improvement in atrial fibrillation rate over the last 24 hours. Transition from IV amiodarone to oral. Continue diltiazem drip in the short term. Continue ICU supportive care. 01/10/17 11:12 Impression Day 3. Persistent atrial fibrillation. Slow and steady improvement. Rate remains controlled on amiodarone and low dose metoprolol orally and IV diltiazem. Continue supportive care. 01/11/17 08:46 impression day 4. persistent atrial fibrillation. Stable hemodynamics on current medical therapy. Anticoagulated at this point. Continue rate control strategy with considerations for cardioversion prior to discharge. In light of the need for anticoagulation for 30 days uninterrupted would like to know for sure that she will not require further intervention. Discussed with family. 01/12/17 19:15 Impression day 5. persistent atrial fibrillation. Slight increase in ventricular response as she weans off sedation. She is anticoagulated. Plan for slight increase in beta-zo orally. Discussed with family. 01/13/17 15:52 01/13/17 15:53 Subjective: social history: Patient's sister has arrived today from [place]. Objective: Medications Generic Name Dose Route Start Last Admin Trade Name Pratibha PRN Reason Stop Dose Admin Amiodarone HCl 200 mg 01/10/17 11:30 01/13/17 08:36 Amiodarone Hcl TUBE 07/09/17 11:29 200 mg DAILY [facility] Diltiazem HCl 125 mg/ Dextrose 125 mls @ 0 mls/hr 01/09/17 08:30 01/12/17 20: 07 IV 07/08/17 08:29 125 mls CONT [facility] Protocol As Directed Heparin Sodium (Porcine) 500 mls @ 0 mls/hr 01/11/17 11:00 Heparin 50 Units/Ml (Premix) IV 07/10/17 10:59 CONT [facility] Protocol Per Protocol Metoprolol Tartrate 12.5 mg 01/10/17 21:00 01/13/17 08:36 Lopressor TUBE 07/05/17 08:59 12.5 mg BID [facility] Vital Signs Temp Pulse Resp BP Pulse Ox 36.9 C 103 H 25 H 145/87 H 96 01/13/17 04:00 01/13/17 11:40 01/13/17 06:00 01/13/17 08:36 01/13/17 11:40 Microbiology 01/12/17 14:00 Blood Panel (PCR) - Final Blood Staph Coagulase Negative 01/07/17 19:45 Gram Stain - Final Peritoneal Fluid - Eswab 01/07/17 16:52 Blood Culture - Final Blood Bacteroides Vulgatus Group Blood Panel (PCR) - Final No Organism Detected 01/07/17 22:29 Blood Culture - Final Blood 01/12/17 14:40 - Final Sputum, Induced/Suctioned Laboratory Results 01/13/17 14:00 01/13/17 02:50 01/12/17 01/13/17 01/14/17 05:59 05:59 05:59 Intake Total 2776 2954 Output Total 3071 8416 Balance -292 -1807 PT 15.6 SEC (12.0-15.0) H 01/11/17 13:45 INR 1.24 (0.83-1.16) H 01/11/17 13:45 Physical Exam - Physical Exam General Appearance: obtunded Neck: supple Respiratory: rhonchi, other ( intubated) Cardiac/Chest: irregularly irregular Peripheral Pulses: 2+: carotid (R), carotid (L), femoral (R), femoral (L), dorsalis-pedis (R), dorsalis-pedis (L) Skin: warm/dry ICD10 Worksheet Patient Problems: Problems Problem Status Onset Diverticulitis Acute
--- NOTE | 2017-01-13 16:49 | WOCRNPDOC ---
KETURAH Advanced Assessment Note - Skin Integrity Problem, Advanced Assess Generalized Abdomen Surgical Wound/Incision Dressing Type: Open to Air Closure Description: Asaf (intact) Exudate Amount: Scant Exudate Color: Yellow, Brown Exudate Characteristic(s): Bilious, Clear, Sanguinous Integumentary Issue Intervention: Barrier Cream Applied (Cavilon skin prep applied after cleaning with NS) Charity Wound Swelling: Mild Wound Edges: Attached Site Odor: None Skin Integrity Problem Comment: Ecchymotic, blistered appearance at periumbilical area of proximal aspect of incision site. Provided care as described; discussed with [facility] L[facility] and Dr. Portillo. Right Lateral Ankle Dressing Type: Allevyn Life Dressing Description: Clean/Dry, Intact Exudate Characteristic(s): None Integumentary Issue Intervention: Visualized Under Dressing, Silver Gel Applied Charity Wound Tissue: Blanching, Erythema Charity Wound Swelling: Mild Wound Bed Color: Brown Wound Bed Constitution: Scab (loosening) Wound Edges: Well Defined Site Odor: None Pressure Injury Stage: Unstageable Right Distal Abdomen Blister Dressing Type: Allevyn Life Dressing Description: Not Intact, Shadowed (by exudate from ostomy and/or seeping down from midline incision) Integumentary Issue Intervention: Dressing Changed (modified to include Adaptic contact layer), Dressing Initialed & Dated Charity Wound Swelling: None Wound Bed Constitution: Intact Serous Filled Blister Wound Edges: Attached, Well Defined Site Odor: None Right Neck Abrasion Dressing Type: Allevyn Life Dressing Description: Clean/Dry, Intact Medial Distal Abdomen Blister Dressing Type: Open to Air Exudate Amount: Scant Exudate Color: Clear Exudate Characteristic(s): Serosanguinous Integumentary Issue Intervention: Dressing Applied (hydrocolloids x 2 sites) Charity Wound Tissue: Erythema, Raw Charity Wound Swelling: None Wound Bed Color: [place], Red Wound Bed Constitution: Smooth Tissue Wound Edges: Irregular Site Odor: None Site Measurement - Head-to-Toe Length X Width X Depth (cm): proximal=1x 2 x 0.5. distal (in skin fold)= 1 x 1 x 0.5 Skin Integrity Problem Comment: Two small partial-thickness openings at distal abdomen have appearances consistent with de-roofed blisters. Cleaned w/NS and gauze; skin prepped periwounds; applied small hydrocolloids to protect. Right Lateral Abdomen Skin Tear & lap site Dressing Type: Open to Air Exudate Amount: Moderate Exudate Color: Clear, Yellow, Green Exudate Characteristic(s): Bilious, Serous Integumentary Issue Intervention: Dressing Applied (Skin prep, Adaptic touch and drain sponge) Charity Wound Tissue: Erythema, Raw Charity Wound Swelling: None Wound Bed Constitution: Smooth Tissue Wound Edges: Irregular Site Odor: None Site Measurement - Head-to-Toe Length X Width X Depth (cm): skin tear=3 x 1 x 0.5. lap site = 3 x intact asaf @ laparoscope incision Skin Integrity Problem Comment: Periwound skin appearance is consistent with irritant dermatitis. Cleaned w/NS and gauze; skin prepped periwounds; placed Adaptic Touch, covered w/drain sponge folded in half. Report to [facility] Lyman. - Ileostomy Assessment, Advanced Right Upper Abdomen Ileostomy Ileostomy Appliance Currently in Use: Two Piece Flat, 2 3/4 Stoma Color: Brown, [place], Red Stoma Turgor: Shiny, Friable, Bridge Present Stoma Shape: Oval, Irregular Stoma Height: Protruding Mucocutaneus Junction: Intact (sutures) Ileostomy Effluent: Liquid, Bile Peristomal Skin: Intact Ileostomy Comment/Treatment Details: Observed copious amount of liquid bile effluent, presumed to stem from contrast fluid intake yesterday, seeping around entire mucocutaneous junction, and dripping through and around upper and lower ends of the bridge; little to no effluent exiting via stoma, undermining skin barrier wafer of existing appliance (dated 01/10). Appliance was changed, with ostomy education reviewed and reinforced with . Provided w/Post-op info packet #2. Supply-ordering is deferred for now, as it is currently anticipated that patient is likely to be discharged to SNF/Rehab when condition warrants. Re -application of the new 2-3/4" pouch appliance failed within 2 hours 2/2 continuing drainage from mucocutaneous junction, requiring a 2nd pouch change. In order to accomodate bridge and large amount of drainage, a fistula pouch was fitted and placed. Discussed w/ , and subsequently w/Dr. Portillo; and verbally demo'd to Esmer, RN. Extra pouch provided. Will round next tomorrow to reassess.
[2017-01-13] MEDS ORDERED: FUROSEMIDE 20 MG/2 ML VIAL IVP ONE (17:02)
[2017-01-13] MEDS ORDERED: ALBUMIN 25% 100 ML IV ONE (17:03)
[2017-01-13] MEDS: FAMOTIDINE 20 MG/NACL 50 ML IV SCH (21:09)
[2017-01-13] MEDS: METOPROLOL TARTRATE 25 MG TAB PO SCH (21:10)
[2017-01-13] MEDS: CETIRIZINE 10 MG TAB TUBE SCH (21:10)
[2017-01-14] MEDS: PIPERACILLIN/TAZO 3.375 GM/DEX 50 ML IV SCH ×4 (00:02→18:05)
[2017-01-14] MEDS ORDERED: VANCOMYCIN 1 GM in D5W 250 ML IV SCH (03:00)
[2017-01-14] MEDS: DILTIAZEM 125 MG in D5W 125 ML IV SCH (06:04)
[2017-01-14] MEDS: HEPARIN/DEXTROSE 500 ML IV SCH ×2 (06:04→19:01)
[2017-01-14 06:25] LABS: ABSOLUTE NRBC COUNT 0.04 10^3/uL (0-0.01); ADD DIFF? YES; ADD MORPH? NO; ADD SCAN? NO; ATYPICAL LYMPHOCYTE FLAG 50 (0-99); FRAGMENT RBC FLAG 0 (0-99); HEMATOCRIT 27.2 % (38.0-47.0); HEMOGLOBIN 8.7 g/dL (12.6-16.3); LEFT SHIFT FLG 50 (0-99); LIPEMIA HEMOLYSIS FLAG 80 (0-99); MEAN CELL HEMOGLOBIN 30.2 pg (27.9-34.1); MEAN CELL VOLUME 94.4 fL (81.5-99.8); MEAN PLATELET VOLUME 10.5 fL (8.7-11.7); NRBC-AUTO% 0.2 % (0.0-0.2); PLATELET CLUMPS FLAG 10 (0-99); PLATELET COUNT 329 10^3/uL (150-400); RED BLOOD CELL COUNT 2.88 10^6/uL (4.18-5.33); RED CELL DISTRIBUTION WIDTH 16.3 % (11.5-15.2)
[2017-01-14 06:41] LABS: ALANINE AMINOTRANSFERASE 79 IU/L (9-52); ALBUMIN 2.5 g/dL (3.5-5.0); ALKALINE PHOSPHATASE 89 IU/L (38-126); ANION GAP 9 mEq/L (8-16); ASPARTATE AMINOTRANSFERASE 52 IU/L (14-46); BILIRUBIN,TOTAL 2.6 mg/dL (0.1-1.4); CALCIUM 8.2 mg/dL (8.5-10.4); CARBON DIOXIDE 24 mEq/l (22-31); CHLORIDE 115 mEq/L (97-110); CREATININE 1.3 mg/dL (0.6-1.0); GLOMERULAR FILTRATION RATE 40; GLUCOSE 156 mg/dL (70-100); POTASSIUM 3.8 mEq/L (3.5-5.2); SODIUM 148 mEq/L (134-144); TOTAL PROTEIN 4.9 g/dL (6.3-8.2)
[2017-01-14 06:57] LABS: BILIRUBIN-CONJUGATED 1.7 mg/dL (0.0-0.5); BILIRUBIN-UNCONJUGATED 0.9 mg/dL (0.0-1.1)
[2017-01-14 07:35] LABS: POLYCHROMASIA 2+
[2017-01-14 07:36] LABS: PLATELET ESTIMATE ADEQUATE (ADEQ)
[2017-01-14] MEDS: METOPROLOL TARTRATE 25 MG TAB PO SCH ×3 (09:33→21:45)
[2017-01-14] MEDS: AMIODARONE HCL 200 MG TAB TUBE SCH (09:33)
[2017-01-14] MEDS: GABAPENTIN 100 MG CAP TUBE SCH ×2 (09:34→21:44)
[2017-01-14] MEDS: MICAFUNGIN NA 100 MG in NS 100 ML IV SCH (09:34)
[2017-01-14] MEDS: CHLORHEXIDINE GLUCONATE 15 ML UDL PO SCH ×2 (09:34→21:46)
--- NOTE | 2017-01-14 09:39 | PDINTPN ---
Dna Sequencing Associate Progress Note Assessment/Plan: Assessment: 71 F with diverticulitis admitted 01/04 with abdominal pain and had robotic sigmoid hemicolectomy. There were no obvious complications and she was sent to the floor, but developed increasing pain and somnolence so was transferred to the ICU 01/[address] revealing an 11 cm pelvic hematoma and extraluminal air. She returned to the OR for evacuation of the hematoma and creation of an ileostomy. She was extubated the next morning, but developed atrial fibrillation , which she may have had twice in previous years (family was uncertain). * Peritonitis following sigmoid resection complicated by anastamotic leak. Blood cultures are currently growing a GNR, and she is being treated with ertapenem. She has minimal pressor requirements and her wbc was reduced 01/08. CT Abdomen shows some residual fluid collections. * Afib with RVR. She was initially treated with amiodarone, followed by a brief trial of esmolol (dropped BP). She got one dose of Digoxin on 01/08, but worsening renal function makes that a less desirable choice. Diltiazem was added 01/09, and rate is now well controlled with a combination of oral amio, metoprolol (increased 01/13), and a Cardizem drip. Her echo was unremarkable as were serial troponins. * Respiratory failure with hypoxemia- presumably related to pain control, ineffective respirations, pneumonia, and possibly pulmonary edema 2/2 NANCY and afib. Her oxygen requirement had been progressing overnight and she barely maintained a sat of 89% on 15 lpm oxymask. Given her poor mentation, she underwent urgent (non-emergent) intubation 01/09, hoping that either she "auto- diureses" or gets HD to improve her oxygenation. She is on CPAP this morning. Weaning today, doing well without distress. However, I'd like to see her a bit stronger and/or her minute ventilation down a bit prior to extubation. 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 Cr up slightly, received lasix 01/13, I<O. Has hypernatremia as part of recovery, now on free H2O TF flushes. * Transaminitis- she had a small increase in AST/ALT likely 2/2 decreased perfusion. Down today. * Her WBC elevated, today is down, is likely related to stress of resolving peritonitis and possible line infection. Afebrile 36 hours. * Anemia- stable HCT with no evidence of bleeding. * Bacteremia: SCN in Blood Cx drawn from centra line Plan: Hold sedation. CPAP as tolerated, may try to extubate if weans well. Continue full anticoagulation for AF. Continue TF via OGT. ANDRÉS prior to discharge. Follow WBC, CXR. Continue antibiotics. Will follow clinically to determine if abdominal fluid collections are contributing to her illness and warrant drainage. D/W family. 01/14/17 09:45 Subjective: More alert, wants ETT out. Objective: Vital Signs Temp Pulse Resp BP Pulse Ox 37.3 C 97 30 H 139/65 H 98 01/14/17 08:00 01/14/17 08:10 01/14/17 08:00 01/14/17 08:00 01/14/17 08:10 Microbiology 01/12/17 14:40 - Final Sputum, Induced/Suctioned 01/12/17 14:00 Blood Panel (PCR) - Final Blood Staph Coagulase Negative 01/07/17 19:45 Gram Stain - Final Peritoneal Fluid - Eswab 01/07/17 16:52 Blood Culture - Final Blood Bacteroides Vulgatus Group Blood Panel (PCR) - Final No Organism Detected 01/07/17 22:29 Blood Culture - Final Blood Laboratory Results 01/14/17 06:14 01/14/17 06:14 01/13/17 01/14/17 01/15/17 05:59 05:59 05:59 Intake Total 2957 3072 Output Total 4717 4055 Balance -1807 -983 PT 15.6 SEC (12.0-15.0) H 01/11/17 13:45 INR 1.24 (0.83-1.16) H 01/11/17 13:45 Microbiology 01/12/17 14:40 Sputum, Induced/Suctioned - Final 01/12/17 14:00 Blood Blood Panel (PCR) - Final Staph Coagulase Negative 01/12/17 14:40 Sputum, Induced/Suctioned Sputum Culture - Preliminary Gram Negative Vikram 01/12/17 14:00 Blood Blood Culture - Preliminary 01/12/17 14:00 Blood Gram Positive Cocci Clusters Physical Exam - Physical Exam General Appearance: alert, no apparent distress EENT: normal ENT inspection Neck: normal inspection Respiratory: lungs clear, normal breath sounds Cardiac/Chest: edema (1+ RUL), irregularly irregular Abdomen: normal bowel sounds, non-tender, soft, other (black liquid ostomy output. Leakage around ostomy site.) Skin: normal color, warm/dry Extremities: normal inspection Neuro/Psych: alert ICD10 Worksheet Patient Problems: Problems Problem Status Onset Diverticulitis Acute
--- NOTE | 2017-01-14 10:05 | SOAPPROG ---
SOAP Progress Note Assessment/Plan: Assessment: 1. NANCY. Ischemic + contrast related ATN. Now in diuretic phase of recovery, uop 2.8 L. Ostomy output high at 1.2 L. Creat up just slightly. 1.3 today. With high fluid losses will need to give back saline if creat rises further, consider cholestyramine/etc. to slow ostomy output. Check Na/K from ostomy. 2. Hypernatremia. Getting free H2O 100cc q4h Increase free H2O to 150cc q1h today. 3. Abdominal sepsis. S/p ileostomy. Cont abx, drains. Follow vanco levels periodically. Dose looks appropriate. 4. AF/RVR. On dilt gtt for rate control, heparin gtt. Plan: 01/13/17 13:56 01/13/17 14:00 01/14/17 09:58 01/14/17 10:14 01/14/17 10:16 01/14/17 10:17 01/14/17 10:18 01/14/17 10:19 Subjective: No new o/n events to report. Objective: Vital Signs Temp Pulse Resp BP Pulse Ox 37.3 C 97 30 H 139/65 H 98 01/14/17 08:00 01/14/17 08:10 01/14/17 08:00 01/14/17 08:00 01/14/17 08:10 Microbiology 01/12/17 14:40 - Final Sputum, Induced/Suctioned Sputum Culture - Final Stenotrophomonas Maltophilia 01/12/17 14:00 Blood Panel (PCR) - Final Blood Staph Coagulase Negative 01/07/17 19:45 Gram Stain - Final Peritoneal Fluid - Eswab 01/07/17 16:52 Blood Culture - Final Blood Bacteroides Vulgatus Group Blood Panel (PCR) - Final No Organism Detected 01/07/17 22:29 Blood Culture - Final Blood Laboratory Results 01/14/17 06:14 01/14/17 06:14 01/13/17 01/14/17 01/15/17 05:59 05:59 05:59 Intake Total 2951 3072 Output Total 4775 5435 Balance -1807 -983 PT 15.6 SEC (12.0-15.0) H 01/11/17 13:45 INR 1.24 (0.83-1.16) H 01/11/17 13:45 In bed, awake, on vent, tired and restless IRIR, no m/g/r CTAB Abdom soft, nt; RLQ ostomy 1+ LE edema ICD10 Worksheet Patient Problems: Problems Problem Status Onset Diverticulitis Acute
--- NOTE | 2017-01-14 11:12 | SOAPPROG ---
SOAP Progress Note Assessment/Plan: Assessment: Poss extubation; will need speech eval prior to po. Ostomy bridge adjusted, appreciate wound RN care. Plan: 01/05/17 09:04 01/06/17 12:35 01/07/17 08:35 01/08/17 09:46 01/08/17 09:50 01/09/17 11:01 01/10/17 12:54 01/11/17 11:23 01/12/17 13:46 01/13/17 09:42 01/14/17 11:09 Subjective: No events, denies abd pain currently. Objective: Vital Signs Temp Pulse Resp BP Pulse Ox 37.3 C 97 30 H 139/65 H 98 01/14/17 08:00 01/14/17 08:10 01/14/17 08:00 01/14/17 08:00 01/14/17 08:10 Microbiology 01/12/17 14:00 Blood Panel (PCR) - Final Blood Staph Coagulase Negative 01/12/17 14:40 - Final Sputum, Induced/Suctioned Sputum Culture - Final Stenotrophomonas Maltophilia 01/07/17 19:45 Gram Stain - Final Peritoneal Fluid - Eswab 01/07/17 16:52 Blood Culture - Final Blood Bacteroides Vulgatus Group Blood Panel (PCR) - Final No Organism Detected 01/07/17 22:29 Blood Culture - Final Blood Laboratory Results 01/14/17 06:14 01/14/17 06:14 01/13/17 01/14/17 01/15/17 05:59 05:59 05:59 Intake Total 2959 3072 Output Total 6226 6310 Balance -1807 -983 PT 15.6 SEC (12.0-15.0) H 01/11/17 13:45 INR 1.24 (0.83-1.16) H 01/11/17 13:45 Alert, responsive, intubated. Abd soft Ostomy functioning Inc without erythema FRANK serous, minimal ICD10 Worksheet Patient Problems: Problems Problem Status Onset Diverticulitis Acute - ICD10 Problem Qualifiers (1) Diverticulitis Qualifiers: Diverticulitis site: D Diverticulitis bleeding: D Diverticulitis complication: D
[2017-01-14] MEDS: ACETAMINOPHEN 650 MG/20.3 ML UDCUP PO PRN ×2 (12:27→21:45)
--- NOTE | 2017-01-14 13:00 | SOAPPROG ---
SOAP Progress Note Assessment/Plan: Assessment: 1. atrial fibrillation with RVR: 3 Days duration at this point. 2. hypertensive cardiomyopathy. Preserved LV function. 3. elevation in troponin with negative cpk. : metabolic etiology in the setting or multiorgan failure 3 acute renal failure with volume overload/creatinine now at 1.2 4. s/p Ileostomy 5. gm negative bacteremia. 6. post-operative anemia s/p transfusion 7. obtundation impression: Day 1. Multiorgan failure with rising creatinine in the setting of gram-negative bacteremia post ileostomy. Persistent atrial fibrillation with rapid ventricular response despite IV digoxin amiodarone overnight. Improvement in systemic blood pressure.Improvement in mental status as she is responding to simple commands. Cardiac enzymes, EKG do not suggest acute cardiac injury. Echocardiogram confirms normal left ventricular systolic function with a hypertensive cardiomyopathy. No indications for urgent cardioversion at this point. Recommend addition of diltiazem today. Complete amiodarone loading today. Plan for maintenance at 0.5 milligrams/hour. Patient would benefit from anticoagulation at some point. Agree with renal consultation for acute renal failure in the setting of decreased urine output and volume overload. Agree with IV antibiotics and continued support the setting of gram-negative bacteremia. 01/09/17 08:14 Impression: Day 2. Significant improvement in atrial fibrillation rate over the last 24 hours. Transition from IV amiodarone to oral. Continue diltiazem drip in the short term. Continue ICU supportive care. 01/10/17 11:12 Impression Day 3. Persistent atrial fibrillation. Slow and steady improvement. Rate remains controlled on amiodarone and low dose metoprolol orally and IV diltiazem. Continue supportive care. 01/11/17 08:46 impression day 4. persistent atrial fibrillation. Stable hemodynamics on current medical therapy. Anticoagulated at this point. Continue rate control strategy with considerations for cardioversion prior to discharge. In light of the need for anticoagulation for 30 days uninterrupted would like to know for sure that she will not require further intervention. Discussed with family. 01/12/17 19:15 Impression day 5. persistent atrial fibrillation. Slight increase in ventricular response as she weans off sedation. She is anticoagulated. Plan for slight increase in beta-zo orally. Discussed with family. 01/13/17 15:52 Impression day 5. Persistent atrial fibrillation. Improved rate control on increased oral metoprolol. Now off diltiazem. Increased frequency of metoprolol to Q q.8 hours. Continue supportive care 01/14/17 12:59 Subjective: up in a chair. Intubated. Responsive. Objective: Vital Signs Temp Pulse Resp BP Pulse Ox 37.3 C 91 26 H 144/63 H 98 01/14/17 08:00 01/14/17 10:00 01/14/17 10:00 01/14/17 10:00 01/14/17 10:00 Microbiology 01/12/17 14:40 - Final Sputum, Induced/Suctioned Sputum Culture - Final Stenotrophomonas Maltophilia 01/12/17 14:00 Blood Panel (PCR) - Final Blood Staph Coagulase Negative 01/07/17 19:45 Gram Stain - Final Peritoneal Fluid - Eswab 01/07/17 16:52 Blood Culture - Final Blood Bacteroides Vulgatus Group Blood Panel (PCR) - Final No Organism Detected Laboratory Results 01/14/17 06:14 01/14/17 06:14 01/13/17 01/14/17 01/15/17 05:59 05:59 05:59 Intake Total 2959 3072 Output Total 5788 6206 Balance -1807 -983 PT 15.6 SEC (12.0-15.0) H 01/11/17 13:45 INR 1.24 (0.83-1.16) H 01/11/17 13:45 Physical Exam - Physical Exam General Appearance: alert Cardiac/Chest: irregularly irregular ICD10 Worksheet Patient Problems: Problems Problem Status Onset Diverticulitis Acute
--- NOTE | 2017-01-14 13:55 | WOCRNPDOC ---
KETURAH Advanced Assessment Note - Skin Integrity Problem, Advanced Assess Generalized Abdomen Surgical Wound/Incision Dressing Type: ABD Pad Dressing Description: Saturated (2/2 ileostomy leakage ) Closure Description: [place] Exudate Color: Green Exudate Characteristic(s): Bilious Integumentary Issue Intervention: Dressing Changed (Cavilon prep to periwound & gauze to proximal segment; VERENA distally) Charity Wound Tissue: Erythema, Macerated, Swollen (proximally) Charity Wound Swelling: Mild Wound Edges: Attached Site Odor: None Skin Integrity Problem Comment: With EH Jones, cleaned site carefully following contamination by ileostomy drainage; Wound drainage was observed seeping through a 0.2 cm l opening in the proximal segment of surgical incision ; periwound has an appearance consistent with moisture-associated dermatitis. Assessed with Dr. Portillo. Applied skin prep to periwound, and a dry 4x4 gauze was secured with paper tape to site by EH Jones. Right Distal Abdomen Blister Dressing Type: Open to Air Integumentary Issue Intervention: Dressing Applied (Replicare hydrocolloid), Dressing Initialed & Dated Charity Wound Tissue: Intact Charity Wound Swelling: None Wound Bed Color: [place], Red Wound Bed Constitution: Smooth Tissue Wound Edges: Epithelizing Site Odor: None Skin Integrity Problem Comment: With EH Jones, cleaned site carefully following contamination by ileostomy drainage; site appearance is consistent with development of new epithilialization. Applied skin prep to periwound, and protected with a Replicare hydrocolloid dressing. Right Neck Abrasion Dressing Type: [place] Life Dressing Description: Clean/Dry, Intact Medial Distal Abdomen Blister Dressing Type: Hydrocolloid (Replicare) Dressing Description: Clean/Dry (distal dressing), Intact (distal dressing), Not Intact (proximal dressing), Soiled (proximal dressing--soiled by ileostomy leakage) Integumentary Issue Intervention: Dressing Changed (new Replicare hydrocolloid was placed) Charity Wound Tissue: Intact Wound Bed Color: [place], Red Wound Edges: Epithelizing, Well Defined Right Lateral Abdomen Skin Tear Dressing Type: Adaptic Touch, Dressing Sponge Dressing Description: Not Intact, Soiled (by ileostomy leakage) Integumentary Issue Intervention: Dressing Changed (to Replicare hydrocolloid), Dressing Initialed & Dated Charity Wound Tissue: Intact Wound Bed Color: [place], Red Wound Bed Constitution: Smooth Tissue Wound Edges: Epithelizing, Attached, Well Defined Site Odor: None Skin Integrity Problem Comment: With EH Jones assisting, carefully cleaned site, applied skin prep, protected with Replicare. - Ileostomy Assessment, Advanced Right Upper Abdomen Ileostomy Ileostomy Appliance Intact: No (leaking profusely) Ileostomy Appliance Currently in Use: Fistula Pouch Stoma Color: Brown, Red, Yellow Stoma Turgor: Moist, Shiny, Friable (25% at locations of yellow-brown tissue), Bridge Present Stoma Shape: Oval, Irregular Stoma Height: Protruding Mucocutaneus Junction: Intact (sutures) Ileostomy Effluent: Fecal (mixed), Liquid, Bile Ileostomy Details: Loop Peristomal Skin: Intact Ileostomy Comment/Treatment Details: Re-evaluation and assesment by this machining technician, requesting involvement of Dr. Portillo and EH Jones, 2/2 to frequent failure of pouching appliances: Ileostomy management has been complicated by both the presence of the bridge sutured to peristomal skin; the stoma opening position at skin level on the left lateral aspect of the stoma; and the mucus fistula opening just above skin level on the right lateral aspect of the stoma. This set of conditions promoted undermining of the skin barrier by the effluent. Dr. Portillo removed the sutures attaching the bridge to the peristomal skin, and re-sutured the ends together, forming a loop bridging above the stoma, which had the effect of freeing the stoma opening to lift slightly more above (rather than flush with) the peristomal skin. It was then possible to fit a new 2-3/4" flat, moldable skin barrier wafer around the stoma , and connect a drainable pouch to the flange of the skin barrier. The was present both supporting the patient and observing the ostomy care procedure.
[2017-01-14] MEDS ORDERED: VANCOMYCIN HCL/NORMAL SALINE 250 ML IV SCH (15:00)
--- NOTE | 2017-01-14 16:11 | PCMIDPN ---
Assessment/Plan: Assessment: sepsis due to peritonitis from sigmoid colon rupture due to diverticulitis. Remains intubated but doing better. On CPAP trials and hopefully will be able to extubate tomorrow. Meanwhile will continue to cover with Vancomycin, Zosyn and micafungin. Her Vancomycin level is over 17 with only a couple days of therapy. Will further decrease dose today. WBC elevation has plateaued -- suspect this is all peritonitis result. Possible GLASS EMBOSSER line infection although only one culture set so could be a contamination. Plan: 1) Continue Vancomycin at decreased dose. 2) Continue Zosyn. 3) Continue micafungin. 01/14/17 23:08 01/14/17 23:10 Subjective: Patient remains intubated. However she is more alert and attending to people and voices in the room. No further fevers. Objective: Vancomycin #2 Zosyn #2 micafungin #3 Vital Signs Temp Pulse Resp BP Pulse Ox 37.4 C 92 23 H 123/62 H 99 01/14/17 12:00 01/14/17 14:00 01/14/17 14:00 01/14/17 14:00 01/14/17 14:00 Microbiology 01/12/17 14:00 Blood Panel (PCR) - Final Blood Staph Coagulase Negative 01/07/17 19:45 Gram Stain - Final Peritoneal Fluid - Eswab Anaerobic Culture - Final 01/12/17 14:40 - Final Sputum, Induced/Suctioned Sputum Culture - Final Stenotrophomonas Maltophilia Laboratory Results 01/14/17 06:14 01/14/17 06:14 01/13/17 01/14/17 01/15/17 05:59 05:59 05:59 Intake Total 2958 3072 Output Total 4765 4055 600 Balance -1807 -983 -600 - Physical Exam General Appearance: WD/WN, alert, no apparent distress, obese, non-toxic EENT: ET Tube Respiratory: lungs clear, normal breath sounds, No respiratory distress Cardiac/Chest: regular rate, rhythm, tachycardia Extremities: non-tender, normal inspection Abdomen: soft, No non-tender, No mass Skin: normal color, warm/dry, No rash ICD10 Worksheet Patient Problems: Problems Problem Status Onset Diverticulitis Acute
[2017-01-14] MEDS: VANCOMYCIN 750 MG in D5W 150 ML IV SCH (16:26)
[2017-01-14] MEDS: CETIRIZINE 10 MG TAB TUBE SCH (21:44)
[2017-01-14] MEDS: FAMOTIDINE 20 MG/NACL 50 ML IV SCH (21:45)
[2017-01-15] MEDS: PIPERACILLIN/TAZO 3.375 GM/DEX 50 ML IV SCH ×4 (00:02→18:45)
[2017-01-15 04:21] LABS: HEMATOCRIT 27.2 % (38.0-47.0); HEMOGLOBIN 8.7 g/dL (12.6-16.3); MEAN CELL HEMOGLOBIN 30.1 pg (27.9-34.1); MEAN CELL VOLUME 94.1 fL (81.5-99.8); RED BLOOD CELL COUNT 2.89 10^6/uL (4.18-5.33)
[2017-01-15] MEDS: VANCOMYCIN 750 MG in D5W 150 ML IV SCH ×2 (04:21→17:24)
[2017-01-15 05:20] LABS: ALANINE AMINOTRANSFERASE 70 IU/L (9-52); ALBUMIN 2.3 g/dL (3.5-5.0); ALKALINE PHOSPHATASE 93 IU/L (38-126); ANION GAP 7 mEq/L (8-16); ASPARTATE AMINOTRANSFERASE 46 IU/L (14-46); CARBON DIOXIDE 23 mEq/l (22-31); CHLORIDE 111 mEq/L (97-110); CREATININE 1.1 mg/dL (0.6-1.0); GLOMERULAR FILTRATION RATE 49; GLUCOSE 134 mg/dL (70-100); POTASSIUM 3.7 mEq/L (3.5-5.2); SODIUM 141 mEq/L (134-144); TOTAL PROTEIN 4.8 g/dL (6.3-8.2)
[2017-01-15] MEDS: METOPROLOL TARTRATE 25 MG TAB PO SCH ×3 (06:09→22:00)
[2017-01-15] MEDS: HEPARIN/DEXTROSE 500 ML IV SCH ×3 (08:50→22:00)
[2017-01-15] MEDS: AMIODARONE HCL 200 MG TAB TUBE SCH (08:50)
[2017-01-15] MEDS: GABAPENTIN 100 MG CAP TUBE SCH ×2 (08:50→20:02)
[2017-01-15] MEDS: CHLORHEXIDINE GLUCONATE 15 ML UDL PO SCH ×2 (08:50→20:02)
[2017-01-15] MEDS: ACETAMINOPHEN 650 MG/20.3 ML UDCUP PO PRN (08:59)
[2017-01-15] MEDS: MICAFUNGIN NA 100 MG in NS 100 ML IV SCH (09:00)
--- NOTE | 2017-01-15 09:19 | PDINTPN ---
[employer] Progress Note Assessment/Plan: Assessment: 71 F with diverticulitis admitted 01/04 with abdominal pain and had robotic sigmoid hemicolectomy. There were no obvious complications and she was sent to the floor, but developed increasing pain and somnolence so was transferred to the ICU 01/[address] revealing an 11 cm pelvic hematoma and extraluminal air. She returned to the OR for evacuation of the hematoma and creation of an ileostomy. She was extubated the next morning, but developed atrial fibrillation , which she may have had twice in previous years (family was uncertain). * Peritonitis following sigmoid resection complicated by anastamotic leak. Blood cultures are currently growing a GNR, and she is being treated with ertapenem. She has minimal pressor requirements and her wbc was reduced 01/08. CT Abdomen shows some residual fluid collections. WBC up, but afebrile. On Micafungin, Zosyn, Vanco. * Afib with RVR. She was initially treated with amiodarone, followed by a brief trial of esmolol (dropped BP). She got one dose of Digoxin on 01/08, but worsening renal function makes that a less desirable choice. Diltiazem was added 01/09, and rate is now well controlled with a combination of oral amio, metoprolol (increased to 25 TID), and a Cardizem drip, which is off this morning , HR low 100s. Her echo was unremarkable as were serial troponins. * Respiratory failure with hypoxemia- presumably related to pain control, ineffective respirations, pneumonia, and possibly pulmonary edema 2/2 NANCY and afib. Her oxygen requirement had been progressing overnight and she barely maintained a sat of 89% on 15 lpm oxymask. Given her poor mentation, she underwent urgent (non-emergent) intubation 01/09, hoping that either she "auto- diureses" or gets HD to improve her oxygenation. She is on CPAP this morning, breathing comfortably at 25 BPM on 40% O2 on CPAP. * LLL Pneumonia: Persists. Sputum Cx with Stenotrophomonas, but minimal secretions. 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 Cr down slightly, received lasix 01/13, I<O. Hypernatremia resolved with increased TF flushes. * Transaminitis- she had a small increase in AST/ALT likely 2/2 decreased perfusion. Down today. * Her WBC elevated, today is down, is likely related to stress of resolving peritonitis and possible line infection. Afebrile 36 hours. * Anemia- stable HCT with no evidence of bleeding. * Bacteremia: SCN in Blood Cx drawn from central line Plan: Hold sedation. Try extubation this AM; although VE is a bit high, her breathing is not labored. Continue full anticoagulation for AF. Once extubated, will get swallow eval. ANDRÉS prior to discharge. Follow WBC, CXR. Continue antibiotics. Will follow clinically to determine if abdominal fluid collections are contributing to her illness and warrant drainage. D/W family. 01/15/17 09:26 Subjective: Slept poorly, reports discomfort from ETT. Thirsty. Objective: Vital Signs Temp Pulse Resp BP Pulse Ox 37.3 C 105 H 24 H 119/64 100 01/15/17 07:46 01/15/17 07:46 01/15/17 07:46 01/15/17 07:46 01/15/17 07:46 Microbiology 01/12/17 14:00 Blood Panel (PCR) - Final Blood Staph Coagulase Negative 01/07/17 19:45 Gram Stain - Final Peritoneal Fluid - Eswab Anaerobic Culture - Final 01/12/17 14:40 - Final Sputum, Induced/Suctioned Sputum Culture - Final Stenotrophomonas Maltophilia Laboratory Results 01/15/17 04:00 01/15/17 04:00 01/14/17 01/15/17 01/16/17 05:59 05:59 05:59 Intake Total 3072 5696 Output Total 4055 3945 175 Balance -983 1751 -175 PT 15.6 SEC (12.0-15.0) H 01/11/17 13:45 INR 1.24 (0.83-1.16) H 01/11/17 13:45 Microbiology 01/12/17 14:40 Sputum, Induced/Suctioned - Final 01/12/17 14:40 Sputum, Induced/Suctioned Sputum Culture - Final Stenotrophomonas Maltophilia CXR: Persistent LLL pneumonia. Images reviewed. Physical Exam - Physical Exam General Appearance: alert, no apparent distress EENT: normal ENT inspection Neck: normal inspection Respiratory: lungs clear, decreased breath sounds (left base), crackles (left base), No normal breath sounds Cardiac/Chest: edema (1+), irregularly irregular Abdomen: normal bowel sounds, non-tender Skin: warm/dry Extremities: normal inspection Neuro/Psych: alert, normal mood/affect, oriented x 3 ICD10 Worksheet Patient Problems: Problems Problem Status Onset Diverticulitis Acute
--- NOTE | 2017-01-15 10:19 | SOAPPROG ---
SOAP Progress Note Assessment/Plan: Assessment/Plan: NANCY: likely ATN, now improving with Cr down from peak of 3.0 to 1.1 today, nonoliguric with good UOP, lytes ok. - No need for HD. - Continue to monitor. - Avoid MOM, morphine, demerol, NSAIDS, contrast, aminoglycosides, fleets, and other nephrotoxins. Hypernatremia: Na improved to 141 after more aggressive free water flushes yesterday. - No more free water flushes as pt is now extubated and without OG. - Will start D5W @ 75ml/hr. - Continue to monitor. Thank you for the interesting consult. At this time, nephrology will sign off, please call if you have any additional questions or concerns. Subjective: No acute events overnight. Pt extubated this am. She continues to have good UOP. Objective: Vital Signs Temp Pulse Resp BP Pulse Ox 37.3 C 112 H 24 H 119/64 98 01/15/17 07:46 01/15/17 09:30 01/15/17 07:46 01/15/17 07:46 01/15/17 09:30 Microbiology 01/12/17 14:00 Blood Panel (PCR) - Final Blood Staph Coagulase Negative 01/07/17 19:45 Gram Stain - Final Peritoneal Fluid - Eswab Anaerobic Culture - Final 01/12/17 14:40 - Final Sputum, Induced/Suctioned Sputum Culture - Final Stenotrophomonas Maltophilia Laboratory Results 01/15/17 04:00 01/15/17 04:00 01/14/17 01/15/17 01/16/17 05:59 05:59 05:59 Intake Total 3072 5696 Output Total 4055 3945 175 Balance -983 1751 -175 PT 15.6 SEC (12.0-15.0) H 01/11/17 13:45 INR 1.24 (0.83-1.16) H 01/11/17 13:45 General: awake, alert, no acute distress Eyes: EOMI, PERRL OP: dry mucous membranes CV: RRR Resp: nonlabored respirations on NC Abd: Soft, NT Ext: no edema BLE Neuro: CN II-XII grossly intact, no asterixis ICD10 Worksheet Patient Problems: Problems Problem Status Onset Diverticulitis Acute
--- NOTE | 2017-01-15 12:39 | PCMIDPN ---
Assessment/Plan: # Sepsis secondary to Polymicrobial Peritonitis secondary to perforation s/p washout and ileostomy on 01/08. WBC continues to trend up but patient with relative signs of improvement - extubation, bowel function, AF, drain with serosang fluid # Bacteroides bacteremia secondary to bowel perf/peritonitis # Blood cx + s. hominus & epi likely in 1/2 cultures c/w contaminant # Renal insufficiency, CrCl ~50, stable to slightly improved today # Stenotrophomonas in sputum c/w colonization Rec --continue vancomycin, micafungin, Zosyn for now. Consider dc vancomycin tomorrow --if WBC continues to trend up may have to consider repeat imaging microbiology 01/07 peritoneal cx: mixed intestinal kecai 01/07 blood cx 1/2 sets Bacteroides 01/12 sputum cultures Gram stain is polymicrobial, culture Stenotrophomonas 01/12 blood cultures 1/2 coagulase negative Staph Medications Vancomycin 750 g IV Q 12, # 3 Micafungin 100 mg IV daily, #4 Zosyn 3.375 g IV Q 6, #[address] Smith and RN Subjective: extubated, talking. Multiple family members present Objective: Vital Signs Temp Pulse Resp BP Pulse Ox 37.3 C 98 20 115/68 98 01/15/17 07:46 01/15/17 10:00 01/15/17 10:00 01/15/17 10:00 01/15/17 10:00 Microbiology 01/12/17 14:00 Blood Panel (PCR) - Final Blood Staph Coagulase Negative 01/07/17 19:45 Gram Stain - Final Peritoneal Fluid - Eswab Anaerobic Culture - Final 01/12/17 14:40 - Final Sputum, Induced/Suctioned Sputum Culture - Final Stenotrophomonas Maltophilia Laboratory Results 01/15/17 04:00 01/15/17 04:00 01/14/17 01/15/17 01/16/17 05:59 05:59 05:59 Intake Total 3072 5696 Output Total 4051 8415 815 Balance -983 8801 -815 - Physical Exam General Appearance: alert, apparent distress (secondary to mild SOB) Respiratory: coarse breath sounds Cardiac/Chest: tachycardia Extremities: pedal edema Abdomen: non-tender, soft, other (FRANK drain with serosang fluid) Pelvic Exam: feldman Skin: pallor, No rash Neuro/Psych: alert, oriented x 3 - Time Spent With Patient Time Spent with Patient: greater than 35 minutes (reviewed culture results, plan for care, lab results with patient and family members) Time Spent with Patient: Greater than 35 minutes spent on this patients care, greater than 50% of time spent counseling, educating, and coordinating care regarding the above mentioned plan. ICD10 Worksheet Patient Problems: Problems Problem Status Onset Diverticulitis Acute
--- NOTE | 2017-01-15 14:47 | SOAPPROG ---
SOAP Progress Note Assessment/Plan: Assessment: Improved. Speech eval for swallowing, cont FRANK and abx. PT/OT. Plan: 01/05/17 09:04 01/06/17 12:35 01/07/17 08:35 01/08/17 09:46 01/08/17 09:50 01/09/17 11:01 01/10/17 12:54 01/11/17 11:23 01/12/17 13:46 01/13/17 09:42 01/14/17 11:09 01/15/17 14:46 Subjective: Extubated. Denies significant pain presently. Objective: Vital Signs Temp Pulse Resp BP Pulse Ox 35.7 C L 102 H 21 H 117/54 L 99 01/15/17 12:00 01/15/17 14:00 01/15/17 14:00 01/15/17 14:00 01/15/17 14:00 Microbiology 01/12/17 14:00 Blood Panel (PCR) - Final Blood Staph Coagulase Negative 01/07/17 19:45 Gram Stain - Final Peritoneal Fluid - Eswab Anaerobic Culture - Final 01/12/17 14:40 - Final Sputum, Induced/Suctioned Sputum Culture - Final Stenotrophomonas Maltophilia Laboratory Results 01/15/17 04:00 01/15/17 04:00 01/14/17 01/15/17 01/16/17 05:59 05:59 05:59 Intake Total 3072 5696 Output Total 4055 3945 815 Balance -983 1751 -815 PT 15.6 SEC (12.0-15.0) H 01/11/17 13:45 INR 1.24 (0.83-1.16) H 01/11/17 13:45 Sleepy but responsive Abd soft, [employer] C/D/I FRANK serous Ostomy functioning well. ICD10 Worksheet Patient Problems: Problems Problem Status Onset Diverticulitis Acute - ICD10 Problem Qualifiers (1) Diverticulitis Qualifiers: Diverticulitis site: D Diverticulitis bleeding: D Diverticulitis complication: D
[2017-01-15] MEDS: ACETAMINOPHEN 650 MG SUPP PR PRN (17:25)
--- NOTE | 2017-01-15 17:58 | SOAPPROG ---
SOAP Progress Note Assessment/Plan: Assessment: 1. atrial fibrillation with RVR: 3 Days duration at this point. 2. hypertensive cardiomyopathy. Preserved LV function. 3. elevation in troponin with negative cpk. : metabolic etiology in the setting or multiorgan failure 3 acute renal failure with volume overload/creatinine now at 1.2 4. s/p Ileostomy 5. gm negative bacteremia. 6. post-operative anemia s/p transfusion 7. obtundation impression: Day 1. Multiorgan failure with rising creatinine in the setting of gram-negative bacteremia post ileostomy. Persistent atrial fibrillation with rapid ventricular response despite IV digoxin amiodarone overnight. Improvement in systemic blood pressure.Improvement in mental status as she is responding to simple commands. Cardiac enzymes, EKG do not suggest acute cardiac injury. Echocardiogram confirms normal left ventricular systolic function with a hypertensive cardiomyopathy. No indications for urgent cardioversion at this point. Recommend addition of diltiazem today. Complete amiodarone loading today. Plan for maintenance at 0.5 milligrams/hour. Patient would benefit from anticoagulation at some point. Agree with renal consultation for acute renal failure in the setting of decreased urine output and volume overload. Agree with IV antibiotics and continued support the setting of gram-negative bacteremia. 01/09/17 08:14 Impression: Day 2. Significant improvement in atrial fibrillation rate over the last 24 hours. Transition from IV amiodarone to oral. Continue diltiazem drip in the short term. Continue ICU supportive care. 01/10/17 11:12 Impression Day 3. Persistent atrial fibrillation. Slow and steady improvement. Rate remains controlled on amiodarone and low dose metoprolol orally and IV diltiazem. Continue supportive care. 01/11/17 08:46 impression day 4. persistent atrial fibrillation. Stable hemodynamics on current medical therapy. Anticoagulated at this point. Continue rate control strategy with considerations for cardioversion prior to discharge. In light of the need for anticoagulation for 30 days uninterrupted would like to know for sure that she will not require further intervention. Discussed with family. 01/12/17 19:15 Impression day 5. persistent atrial fibrillation. Slight increase in ventricular response as she weans off sedation. She is anticoagulated. Plan for slight increase in beta-zo orally. Discussed with family. 01/13/17 15:52 Impression day 5. Persistent atrial fibrillation. Improved rate control on increased oral metoprolol. Now off diltiazem. Increased frequency of metoprolol to Q q.8 hours. Continue supportive care 01/14/17 12:59 impression day 6. Persistant atrial fibrillation. Extubated! Now NPO. Shannan remains controlled with stable hemodynamics. Agree with use of IV dilt until taking po again. ANDRÉS/Cardioversion prior to discharge. Will be away for the weekend. Call plastic injection mold maker cardiology for any issues over the weekend. I will see her on Wednesday. 01/15/17 17:54 Subjective: Extubated. No chest pain. Weak. Objective: Vital Signs Temp Pulse Resp BP Pulse Ox 36.1 C 111 H 23 H 133/61 H 95 01/15/17 16:00 01/15/17 16:00 01/15/17 16:00 01/15/17 16:00 01/15/17 16:00 Microbiology 01/12/17 14:00 Blood Panel (PCR) - Final Blood Staph Coagulase Negative 01/07/17 19:45 Gram Stain - Final Peritoneal Fluid - Eswab Anaerobic Culture - Final 01/12/17 14:40 - Final Sputum, Induced/Suctioned Sputum Culture - Final Stenotrophomonas Maltophilia Laboratory Results 01/15/17 04:00 01/15/17 04:00 01/14/17 01/15/17 01/16/17 05:59 05:59 05:59 Intake Total 3072 5696 791 Output Total 4055 3945 1515 Balance -983 1751 -724 PT 15.6 SEC (12.0-15.0) H 01/11/17 13:45 INR 1.24 (0.83-1.16) H 01/11/17 13:45 tele, afib at 101 Physical Exam - Physical Exam General Appearance: alert, other (extubated up in chair) Respiratory: decreased breath sounds, rhonchi Cardiac/Chest: irregularly irregular ICD10 Worksheet Patient Problems: Problems Problem Status Onset Atrial fibrillation Acute Diverticulitis Acute
[2017-01-15] MEDS ORDERED: BIOTENE DRY MOUTH MOUTHWASH 237 ML BTL MM PRN (19:18)
[2017-01-15] MEDS: FAMOTIDINE 20 MG/NACL 50 ML IV SCH (20:01)
[2017-01-15] MEDS: CETIRIZINE 10 MG TAB TUBE SCH (20:02)
[2017-01-16] MEDS: PIPERACILLIN/TAZO 3.375 GM/DEX 50 ML IV SCH ×4 (00:12→18:26)
[2017-01-16] MEDS: VANCOMYCIN 750 MG in D5W 150 ML IV SCH (05:34)
[2017-01-16] MEDS: METOPROLOL TARTRATE 25 MG TAB PO SCH ×3 (06:07→20:54)
[2017-01-16 06:11] LABS: ALANINE AMINOTRANSFERASE 54 IU/L (9-52); ALBUMIN 2.4 g/dL (3.5-5.0); ALKALINE PHOSPHATASE 79 IU/L (38-126); ANION GAP 9 mEq/L (8-16); ASPARTATE AMINOTRANSFERASE 31 IU/L (14-46); BILIRUBIN,TOTAL 2.1 mg/dL (0.1-1.4); CALCIUM 7.9 mg/dL (8.5-10.4); CARBON DIOXIDE 21 mEq/l (22-31); CHLORIDE 109 mEq/L (97-110); CREATININE 1.1 mg/dL (0.6-1.0); GLOMERULAR FILTRATION RATE 49; GLUCOSE 127 mg/dL (70-100); POTASSIUM 3.3 mEq/L (3.5-5.2); SODIUM 139 mEq/L (134-144); TOTAL PROTEIN 4.9 g/dL (6.3-8.2)
[2017-01-16 06:18] LABS: BILIRUBIN-CONJUGATED 1.2 mg/dL (0.0-0.5); BILIRUBIN-UNCONJUGATED 0.9 mg/dL (0.0-1.1)
[2017-01-16] MEDS: HEPARIN/DEXTROSE 500 ML IV SCH ×2 (08:06→20:48)
[2017-01-16] MEDS: DILTIAZEM 125 MG in D5W 125 ML IV SCH ×2 (08:06→17:00)
[2017-01-16] MEDS: D5W 1,000 ML IV SCH ×2 (08:06→20:58)
[2017-01-16] MEDS: CHLORHEXIDINE GLUCONATE 15 ML UDL PO SCH ×2 (08:09→20:58)
[2017-01-16 08:49] LABS: ADD DIFF? YES; ADD MORPH? NO; ADD SCAN? NO; ATYPICAL LYMPHOCYTE FLAG 20 (0-99); FRAGMENT RBC FLAG 0 (0-99); HEMOGLOBIN 8.3 g/dL (12.6-16.3); LEFT SHIFT FLG 30 (0-99); LIPEMIA HEMOLYSIS FLAG 80 (0-99); MEAN CELL HEMOGLOBIN CONCENTR. 33.2 g/dL (32.4-36.7); MEAN CELL VOLUME 90.3 fL (81.5-99.8); MEAN PLATELET VOLUME 11.1 fL (8.7-11.7); PLATELET CLUMPS FLAG 50 (0-99); PLATELET COUNT 432 10^3/uL (150-400); RED BLOOD CELL COUNT 2.77 10^6/uL (4.18-5.33); RED CELL DISTRIBUTION WIDTH 15.7 % (11.5-15.2)
--- NOTE | 2017-01-16 09:18 | PDINTPN ---
Mold Yard Worker Progress Note Assessment/Plan: Assessment: 71 F with diverticulitis admitted 01/04 with abdominal pain and had robotic sigmoid hemicolectomy. There were no obvious complications and she was sent to the floor, but developed increasing pain and somnolence so was transferred to the ICU 01/[address] revealing an 11 cm pelvic hematoma and extraluminal air. She returned to the OR for evacuation of the hematoma and creation of an ileostomy. She was extubated the next morning, but developed atrial fibrillation , which she may have had twice in previous years (family was uncertain). * Peritonitis following sigmoid resection complicated by anastamotic leak. Blood cultures are currently growing a GNR, and she is being treated with ertapenem. She has minimal pressor requirements and her wbc was reduced 01/08. CT Abdomen shows some residual fluid collections. WBC high, stable, but afebrile. On Micafungin, Zosyn, Vanco. * Afib with RVR. She was initially treated with amiodarone, followed by a brief trial of esmolol (dropped BP). She got one dose of Digoxin on 01/08, but worsening renal function makes that a less desirable choice. Diltiazem was added 01/09, and rate is now well controlled with a combination of oral amio, metoprolol (increased to 25 TID), but not getting metoprolol since 01.15 when OGT removed. Rate controlled wtih a Cardizem drip, HR 90s this AM. Her echo was unremarkable as were serial troponins. * Respiratory failure with hypoxemia- presumably related to pain control, ineffective respirations, pneumonia, and possibly pulmonary edema 2/2 NANCY and afib. Her oxygen requirement had been progressing overnight and she barely maintained a sat of 89% on 15 lpm oxymask. Given her poor mentation, she underwent urgent (non-emergent) intubation 01/09, hoping that either she "auto- diureses" or gets HD to improve her oxygenation. Extubated 01/15, mildly tachypneic but no distress, on oxygen at 1 liter/minute/ * LLL Pneumonia: Persists. Sputum Cx with Stenotrophomonas, but minimal secretions, doubt this as causing her pneumonia. 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 Cr down slightly, received lasix 01/13, I<O. Hypernatremia resolved with increased TF flushes. * Transaminitis- she had a small increase in AST/ALT likely 2/2 decreased perfusion. Down today. * Her WBC elevated, today is down, is likely related to stress of resolving peritonitis and possible line infection. Afebrile 36 hours. * Anemia- HCT trending down with no evidence of bleeding. * Bacteremia: 2 Gram positives in Blood Cx drawn from central line, likely contaminant. Plan: Continue full anticoagulation for AF. Swallow eval. Check C.Diff. If negative, CT abdomen. Continue heparin. ANDRÉS prior to discharge. Follow WBC, CXR. Continue antibiotics per ID. D/W family. 01/16/17 09:20 Subjective: Feels quite weak and thirsty. Objective: Vital Signs Temp Pulse Resp BP Pulse Ox 36.6 C 102 H 27 H 122/60 H 94 01/16/17 07:58 01/16/17 08:06 01/16/17 07:58 01/16/17 07:58 01/16/17 07:58 Microbiology 01/12/17 14:00 Blood Panel (PCR) - Final Blood Staph Coagulase Negative Laboratory Results 01/16/17 08:30 01/16/17 05:40 01/15/17 01/16/17 01/17/17 05:59 05:59 05:59 Intake Total 5696 2503 Output Total 3945 3265 Balance 1751 -762 PT 15.6 SEC (12.0-15.0) H 01/11/17 13:45 INR 1.24 (0.83-1.16) H 01/11/17 13:45 Physical Exam - Physical Exam General Appearance: alert EENT: normal ENT inspection Neck: normal inspection Respiratory: crackles (bases) Cardiac/Chest: irregularly irregular Abdomen: normal bowel sounds, non-tender, No soft Skin: normal color, warm/dry Extremities: normal inspection Neuro/Psych: alert, oriented x 3, No aphasia ICD10 Worksheet Patient Problems: Problems Problem Status Onset Atrial fibrillation Acute Diverticulitis Acute
--- NOTE | 2017-01-16 09:25 | PCMIDPN ---
Assessment/Plan: # Sepsis secondary to Polymicrobial Peritonitis secondary to perforation s/p washout and ileostomy on 01/08. Sepsis resolved but WBC continues to be elevated x 4 days although generally VS stable. # Bacteroides bacteremia secondary to bowel perf/peritonitis: blood cx cleared # Blood cx + s. hominus & epi 1/2 cultures c/w contaminant # Renal insufficiency, CrCl ~50 # Stenotrophomonas in sputum c/w colonization Rec to eval persistent leukocytosis --DC vancomycin, micafungin no isolates requiring coverage from these 2 agents --continue Zosyn --r/o cdiff --if cdiff neg then repeat CT abd/pelvis with contrast --repeat blood cultures microbiology 01/07 peritoneal cx: mixed intestinal kecia 01/07 blood cx 1/2 sets Bacteroides 01/12 sputum cultures Gram stain is polymicrobial, culture Stenotrophomonas 01/12 blood cultures 1/2 coagulase negative Staph Medications Vancomycin 750 g IV Q 12, # 4 Micafungin 100 mg IV daily, #5 Zosyn 3.375 g IV Q 6, #[address] Smith and RN Subjective: family reports yesterday afternoon patient very awake, interactive Objective: Vital Signs Temp Pulse Resp BP Pulse Ox 36.6 C 102 H 27 H 122/60 H 94 01/16/17 07:58 01/16/17 08:06 01/16/17 07:58 01/16/17 07:58 01/16/17 07:58 Microbiology 01/12/17 14:00 Blood Panel (PCR) - Final Blood Staph Coagulase Negative Laboratory Results 01/16/17 08:30 01/16/17 05:40 01/15/17 01/16/17 01/17/17 05:59 05:59 05:59 Intake Total 5696 2503 Output Total 3945 3265 Balance 1751 -762 Gen: mildly distressed with increased RR HEENT: dry MMM, fair dentition, pallor CV: tachycardic Resp: no using accessory muscles, decreased bs in bases Abd: slight distension, RLQ ostomy with green liquid material; BS decreased but present, minimal distension; midline incision without erythema Ext: edema RUE PICC c/d/i Neuro axo x4, moving all 4 ext equally, generally weak Skin no rash ICD10 Worksheet Patient Problems: Problems Problem Status Onset Atrial fibrillation Acute Diverticulitis Acute
[2017-01-16 09:45] LABS: PLATELET ESTIMATE INCREASED (ADEQ)
[2017-01-16 09:46] LABS: LARGE PLATELETS PRESENT; POLYCHROMASIA 1+
[2017-01-16] MEDS: GABAPENTIN 100 MG CAP TUBE SCH ×2 (09:58→20:54)
[2017-01-16] MEDS: AMIODARONE HCL 200 MG TAB TUBE SCH (09:58)
--- NOTE | 2017-01-16 11:25 | SOAPPROG ---
SOAP Progress Note Assessment/Plan: Assessment: Continued improvement. Mobilize, IS. Advance diet when cleared by BALLER TENDER. D/w patient and family, questions answered. Plan: 01/05/17 09:04 01/06/17 12:35 01/07/17 08:35 01/08/17 09:46 01/08/17 09:50 01/09/17 11:01 01/10/17 12:54 01/11/17 11:23 01/12/17 13:46 01/13/17 09:42 01/14/17 11:09 01/15/17 14:46 01/16/17 11:22 01/16/17 11:24 Subjective: Patient feels better, pain controlled, no N/V. Objective: Vital Signs Temp Pulse Resp BP Pulse Ox 36.6 C 102 H 27 H 122/60 H 94 01/16/17 07:58 01/16/17 08:06 01/16/17 07:58 01/16/17 07:58 01/16/17 07:58 Microbiology 01/12/17 14:00 Blood Panel (PCR) - Final Blood Staph Coagulase Negative Laboratory Results 01/16/17 08:30 01/16/17 05:40 01/15/17 01/16/17 01/17/17 05:59 05:59 05:59 Intake Total 5696 2503 Output Total 3945 3265 Balance 1751 -762 PT 15.6 SEC (12.0-15.0) H 01/11/17 13:45 INR 1.24 (0.83-1.16) H 01/11/17 13:45 Alert, NAD Abd soft, NTTP Inc without erythema. FRANK serous Ostomy functioning well, no leak noted ICD10 Worksheet Patient Problems: Problems Problem Status Onset Atrial fibrillation Acute Diverticulitis Acute - ICD10 Problem Qualifiers (1) Diverticulitis Qualifiers: Diverticulitis site: D Diverticulitis bleeding: D Diverticulitis complication: D
[2017-01-16] MEDS ORDERED: IOPAMIDOL (ISOVUE-300) 100 ML BTL IV ONE (15:38)
[2017-01-16 20:39] LABS: ALBUMIN 2.4 g/dL (3.5-5.0); ANION GAP 10 mEq/L (8-16); CALCIUM 7.7 mg/dL (8.5-10.4); CARBON DIOXIDE 21 mEq/l (22-31); CHLORIDE 104 mEq/L (97-110); GLOMERULAR FILTRATION RATE 55; GLUCOSE 152 mg/dL (70-100); MAGNESIUM 1.5 mg/dL (1.6-2.3); SODIUM 135 mEq/L (134-144)
[2017-01-16] MEDS ORDERED: PROTOCOL POTASSIUM 1 DOSE MISC PRN (20:42)
[2017-01-16] MEDS ORDERED: PROTOCOL MAGNESIUM 1 DOSE IV PRN (20:42)
[2017-01-16] MEDS ORDERED: PROTOCOL CALCIUM 1 DOSE IV PRN (20:42)
[2017-01-16] MEDS ORDERED: MAGNESIUM SULF 1 GM/DEXTROSE 100 ML IV ONE (20:44)
[2017-01-16] MEDS: METOPROLOL TARTRATE 5 MG/5 ML INJ IVP PRN (20:48)
[2017-01-16] MEDS: FAMOTIDINE 20 MG/NACL 50 ML IV SCH (20:48)
[2017-01-16] MEDS: CETIRIZINE 10 MG TAB TUBE SCH (20:54)
[2017-01-16] MEDS: POTASSIUM Cl (KCl) 50 ML IV SCH (20:58)
[2017-01-17] MEDS: PIPERACILLIN/TAZO 3.375 GM/DEX 50 ML IV SCH ×4 (00:15→18:50)
[2017-01-17] MEDS: METOPROLOL TARTRATE 5 MG/5 ML INJ IVP PRN (02:00)
[2017-01-17] MEDS: METOPROLOL TARTRATE 25 MG TAB PO SCH ×3 (02:44→21:04)
[2017-01-17] MEDS: DILTIAZEM 125 MG in D5W 125 ML IV SCH ×2 (05:05→18:28)
[2017-01-17 05:44] LABS: IONIZED CALCIUM 1.07 MMOL/L (1.12-1.30)
[2017-01-17 05:52] LABS: ADD DIFF? YES; ADD MORPH? NO; ATYPICAL LYMPHOCYTE FLAG 20 (0-99); FRAGMENT RBC FLAG 0 (0-99); HEMATOCRIT 26.4 % (38.0-47.0); HEMOGLOBIN 8.8 g/dL (12.6-16.3); LEFT SHIFT FLG 30 (0-99); LIPEMIA HEMOLYSIS FLAG 80 (0-99); MEAN CELL HEMOGLOBIN 29.6 pg (27.9-34.1); MEAN CELL HEMOGLOBIN CONCENTR. 33.3 g/dL (32.4-36.7); MEAN CELL VOLUME 88.9 fL (81.5-99.8); MEAN PLATELET VOLUME 10.7 fL (8.7-11.7); PLATELET CLUMPS FLAG 0 (0-99); PLATELET COUNT 534 10^3/uL (150-400); RED BLOOD CELL COUNT 2.97 10^6/uL (4.18-5.33); RED CELL DISTRIBUTION WIDTH 15.9 % (11.5-15.2)
[2017-01-17 06:07] LABS: ADD SCAN? NO
[2017-01-17 06:39] LABS: ALANINE AMINOTRANSFERASE 51 IU/L (9-52); ALBUMIN 2.4 g/dL (3.5-5.0); ALKALINE PHOSPHATASE 112 IU/L (38-126); ANION GAP 9 mEq/L (8-16); ASPARTATE AMINOTRANSFERASE 36 IU/L (14-46); BILIRUBIN,TOTAL 1.8 mg/dL (0.1-1.4); CALCIUM 7.4 mg/dL (8.5-10.4); CARBON DIOXIDE 20 mEq/l (22-31); CHLORIDE 104 mEq/L (97-110); GLOMERULAR FILTRATION RATE 55; GLUCOSE 209 mg/dL (70-100); POTASSIUM 3.4 mEq/L (3.5-5.2); SODIUM 133 mEq/L (134-144)
[2017-01-17] MEDS ORDERED: CALCIUM GLUCONATE 50 ML IV ONE (06:45)
[2017-01-17 06:53] LABS: PLATELET ESTIMATE INCREASED (ADEQ); POLYCHROMASIA 1+
[2017-01-17 07:12] LABS: MAGNESIUM 1.6 mg/dL (1.6-2.3); POTASSIUM 3.4 mEq/L (3.5-5.2)
[2017-01-17] MEDS: CHLORHEXIDINE GLUCONATE 15 ML UDL PO SCH ×2 (07:41→21:04)
[2017-01-17] MEDS: POTASSIUM Cl (KCl) 50 ML IV SCH ×5 (07:41→14:23)
[2017-01-17] MEDS: GABAPENTIN 100 MG CAP TUBE SCH ×2 (07:43→21:04)
[2017-01-17] MEDS: AMIODARONE HCL 200 MG TAB TUBE SCH (07:43)
--- NOTE | 2017-01-17 10:19 | PCMIDPN ---
Assessment/Plan: # Sepsis secondary to Polymicrobial Peritonitis secondary to perforation s/p washout and ileostomy on 01/08. # Persistent leukocytosis: negative CT abdomen, Cdiff neg, blood cx neg so far # Possible HAP, sl increase O2 demands, B infiltrates on CT, failure to improve , and unexplained leukocytosis. Known Stenotrophomonas # Bacteroides bacteremia secondary to bowel perf/peritonitis: blood cx cleared # Blood cx + s. hominus & epi 1/2 cultures c/w contaminant # ARF - resolved Recommendations: --start Bactrim IV 10-15mg/kg. Adjust to approx 12mg/kg at 350mg q6h. Reviewed risk of bactrim including allergy, renal dysfunction, lytes, volume overload. Requested pharmacy put Bactrim in minimal IV fluids. This point would avoid levofloxacin due to prolonged QT risk with coadministration of amiodarone. --continue Zosyn for intra-abdominal coverage. Considering 14 day course microbiology 01/07 peritoneal cx: mixed intestinal kecia 01/07 blood cx 1/2 sets Bacteroides 01/12 sputum cultures Gram stain is polymicrobial, culture Stenotrophomonas 01/12 blood cultures 1/2 coagulase negative Staph Medications Zosyn 3.375 g IV Q 6, #8 Subjective: patient with diaphoresis Family describes that patient had joint discomfort with levofloxacin in the past. She also states that metronidazole destroyed her "taste buds" Objective: Vital Signs Temp Pulse Resp BP Pulse Ox 37.4 C 80 19 124/57 H 100 01/17/17 07:00 01/17/17 09:00 01/17/17 09:00 01/17/17 09:00 01/17/17 09:00 Microbiology 01/12/17 14:00 Blood Panel (PCR) - Final Blood Staph Coagulase Negative Laboratory Results 01/17/17 05:30 01/17/17 05:30 01/16/17 01/17/17 01/18/17 05:59 05:59 05:59 Intake Total 2503 3213 Output Total 4595 3145 Balance -762 68 Gen: mildly distressed with slight increased RR, diaphoretic HEENT: extremely dry MMM, fair dentition, pallor CV: RRR, no murmur Resp: no using accessory muscles, decreased bs in bases Abd: slight distension, RLQ ostomy with green liquid material; BS decreased but present, minimal distension; midline incision without erythema but some serosanguineous drainage at the proximal portion of the incision Ext: Anasarca RUE PICC c/d/i Neuro axo x4, moving all 4 ext equally, generally weak Skin no rash - Time Spent With Patient Time Spent with Patient: greater than 35 minutes Time Spent with Patient: Greater than 35 minutes spent on this patients care, greater than 50% of time spent counseling, educating, and coordinating care regarding the above mentioned plan. ICD10 Worksheet Patient Problems: Problems Problem Status Onset Atrial fibrillation Acute Diverticulitis Acute
[2017-01-17] MEDS ORDERED: PROTOCOL POTASSIUM 1 DOSE MISC PRN (10:46)
[2017-01-17] MEDS ORDERED: TMP IV SCH ×2 (11:00→12:00)
[2017-01-17] MEDS ORDERED: SULFAMETHOX IV SCH ×2 (11:00→12:00)
[2017-01-17] MEDS ORDERED: D5W IV SCH ×2 (11:00→12:00)
[2017-01-17 11:56] LABS: POTASSIUM 3.6 mEq/L (3.5-5.2)
[2017-01-17] MEDS: TMP IV SCH ×3 (12:16→23:03)
[2017-01-17] MEDS: SULFAMETHOX IV SCH ×3 (12:16→23:03)
[2017-01-17] MEDS: D5W IV SCH ×3 (12:16→23:03)
--- NOTE | 2017-01-17 12:18 | SOAPPROG ---
SOAP Progress Note Assessment/Plan: Assessment: Continued improvement despite elevating WBC. Mobilize, IS. Advance diet when cleared by DIRECTOR OF INSTITUTIONAL RESEARCH. D/w patient and family, questions answered. Plan: 01/05/17 09:04 01/06/17 12:35 01/07/17 08:35 01/08/17 09:46 01/08/17 09:50 01/09/17 11:01 01/10/17 12:54 01/11/17 11:23 01/12/17 13:46 01/13/17 09:42 01/14/17 11:09 01/15/17 14:46 01/16/17 11:22 01/16/17 11:24 01/17/17 12:16 Subjective: Patient c/o hoarseness, no N/V. Objective: Vital Signs Temp Pulse Resp BP Pulse Ox 37.4 C 77 23 H 134/49 H 100 01/17/17 07:00 01/17/17 11:00 01/17/17 11:00 01/17/17 11:00 01/17/17 11:00 Microbiology 01/12/17 14:00 Blood Panel (PCR) - Final Blood Staph Coagulase Negative Laboratory Results 01/17/17 05:30 01/17/17 11:42 01/16/17 01/17/17 01/18/17 05:59 05:59 05:59 Intake Total 2503 3213 Output Total 3265 3145 150 Balance -762 68 -150 PT 15.6 SEC (12.0-15.0) H 01/11/17 13:45 INR 1.24 (0.83-1.16) H 01/11/17 13:45 Alert, responsive Abd sl distended, NTTP Inc without erythema Ostomy functioning FRANK serous ICD10 Worksheet Patient Problems: Problems Problem Status Onset Atrial fibrillation Acute Diverticulitis Acute - ICD10 Problem Qualifiers (1) Diverticulitis Qualifiers: Diverticulitis site: D Diverticulitis bleeding: D Diverticulitis complication: D
--- NOTE | 2017-01-17 12:45 | PDINTPN ---
Complaint Investigations Officer Progress Note Assessment/Plan: Assessment: 71 F with diverticulitis admitted 01/04 with abdominal pain and had robotic sigmoid hemicolectomy. There were no obvious complications and she was sent to the floor, but developed increasing pain and somnolence so was transferred to the ICU 01/[address] revealing an 11 cm pelvic hematoma and extraluminal air. She returned to the OR for evacuation of the hematoma and creation of an ileostomy. She was extubated the next morning, but developed atrial fibrillation , which she may have had twice in previous years (family was uncertain). * Peritonitis following sigmoid resection complicated by anastamotic leak. Blood cultures are currently growing a GNR, and she is being treated with ertapenem. She has minimal pressor requirements and her wbc was reduced 01/08. CT Abdomen shows some residual fluid collections, improved 01/17 compared to . WBC highand climbing, but afebrile. On Micafungin, Zosyn, Vanco. * Afib with RVR. She was initially treated with amiodarone, followed by a brief trial of esmolol (dropped BP). She got one dose of Digoxin on 01/08, but worsening renal function makes that a less desirable choice. Diltiazem was added 01/09, and rate is now well controlled with a combination of oral amio, metoprolol (increased to 25 TID), but not getting metoprolol since 01.15 when OGT removed. Rate controlled with a Cardizem drip, HR 90s this AM. Her echo was unremarkable as were serial troponins. * Respiratory failure with hypoxemia- presumably related to pain control, ineffective respirations, pneumonia, and possibly pulmonary edema 2/2 NANCY and afib. Her oxygen requirement had been progressing overnight and she barely maintained a sat of 89% on 15 lpm oxymask. Given her poor mentation, she underwent urgent (non-emergent) intubation 01/09, hoping that either she "auto- diureses" or gets HD to improve her oxygenation. Extubated 01/15, mildly tachypneic but no distress, on oxygen at 1 liter/minute/ * LLL Pneumonia: Persists. Sputum Cx with Stenotrophomonas, but minimal secretions, doubt this as causing her pneumonia. 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 Cr down slightly, received lasix 01/13, I<O. Hypernatremia resolved with increased TF flushes. * Transaminitis- she had a small increase in AST/ALT likely 2/2 decreased perfusion. Down today. * Her WBC elevated, today is down, is likely related to stress of resolving peritonitis and possible line infection. Afebrile 36 hours. * Anemia- HCT trending down with no evidence of bleeding. * Bacteremia: 2 Gram positives in Blood Cx drawn from central line, likely contaminant. Plan: Continue full anticoagulation for AF. Swallow eval. If fails this afternoon, I' d favor feeding tube. Lasix for effusions, edema. ANDRÉS prior to discharge. Follow WBC, CXR. Add Bactrim for Stenotrophomonas. D/W family. 01/17/17 12:55 Subjective: Breathing a bit easier. Pain controlled. Objective: Vital Signs Temp Pulse Resp BP Pulse Ox 36.6 C 84 24 H 134/65 H 99 01/17/17 12:00 01/17/17 12:00 01/17/17 12:00 01/17/17 12:00 01/17/17 12:00 Microbiology 01/12/17 14:00 Blood Panel (PCR) - Final Blood Staph Coagulase Negative Laboratory Results 01/17/17 05:30 01/17/17 11:42 01/16/17 01/17/17 01/18/17 05:59 05:59 05:59 Intake Total 2503 3213 Output Total 3265 3145 150 Balance -762 68 -150 PT 15.6 SEC (12.0-15.0) H 01/11/17 13:45 INR 1.24 (0.83-1.16) H 01/11/17 13:45 CT Abdomen: Decreased fluid collections in pelvis. Small bilateral pleural effusions with consolidation, increased from 01/12. Images reviewed. CXR: ? slight improvement in basilar densities, persistent/increased effusions. Images reviewed. Physical Exam - Physical Exam General Appearance: alert, mild distress (tachypneic) EENT: normal ENT inspection Neck: normal inspection Respiratory: decreased breath sounds (bases) Cardiac/Chest: edema (2+), irregularly irregular Abdomen: normal bowel sounds, non-tender, soft Skin: normal color, warm/dry Extremities: normal inspection Neuro/Psych: alert, normal mood/affect, motor weakness (diffuse) ICD10 Worksheet Patient Problems: Problems Problem Status Onset Atrial fibrillation Acute Diverticulitis Acute
[2017-01-17] MEDS ORDERED: FUROSEMIDE 40 MG/4 ML VIAL IVP ONE (12:57)
[2017-01-17] MEDS: HEPARIN/DEXTROSE 500 ML IV SCH (18:24)
[2017-01-17] MEDS: ONDANSETRON 4 MG/2 ML VIAL IVP PRN (18:28)
[2017-01-17 19:37] LABS: POTASSIUM 3.9 mEq/L (3.5-5.2)
[2017-01-17] MEDS: FAMOTIDINE 20 MG/NACL 50 ML IV SCH (21:04)
[2017-01-17] MEDS: CETIRIZINE 10 MG TAB TUBE SCH (21:05)
[2017-01-17] MEDS ORDERED: POTASSIUM Cl (KCl) 50 ML IV ONE (23:18)
[2017-01-18] MEDS: PIPERACILLIN/TAZO 3.375 GM/DEX 50 ML IV SCH ×4 (00:13→18:20)
[2017-01-18] MEDS: HEPARIN/DEXTROSE 500 ML IV SCH (03:47)
[2017-01-18] MEDS: TMP IV SCH ×4 (04:34→23:25)
[2017-01-18] MEDS: SULFAMETHOX IV SCH ×4 (04:34→23:25)
[2017-01-18] MEDS: D5W IV SCH ×4 (04:34→23:25)
[2017-01-18 04:56] LABS: IONIZED CALCIUM 1.06 MMOL/L (1.12-1.30)
[2017-01-18 05:03] LABS: HEMATOCRIT 24.3 % (38.0-47.0); HEMOGLOBIN 8.1 g/dL (12.6-16.3); LIPEMIA HEMOLYSIS FLAG 80 (0-99); MEAN CELL HEMOGLOBIN 29.9 pg (27.9-34.1); MEAN CELL HEMOGLOBIN CONCENTR. 33.3 g/dL (32.4-36.7); MEAN CELL VOLUME 89.7 fL (81.5-99.8); PLATELET COUNT 556 10^3/uL (150-400); RED BLOOD CELL COUNT 2.71 10^6/uL (4.18-5.33); RED CELL DISTRIBUTION WIDTH 15.8 % (11.5-15.2)
[2017-01-18 05:13] LABS: ALANINE AMINOTRANSFERASE 50 IU/L (9-52); ALBUMIN 2.4 g/dL (3.5-5.0); ALKALINE PHOSPHATASE 108 IU/L (38-126); ANION GAP 6 mEq/L (8-16); ASPARTATE AMINOTRANSFERASE 30 IU/L (14-46); BILIRUBIN,TOTAL 1.3 mg/dL (0.1-1.4); CALCIUM 7.7 mg/dL (8.5-10.4); CARBON DIOXIDE 22 mEq/l (22-31); CHLORIDE 104 mEq/L (97-110); CREATININE 1.2 mg/dL (0.6-1.0); GLOMERULAR FILTRATION RATE 44; GLUCOSE 110 mg/dL (70-100); MAGNESIUM 1.8 mg/dL (1.6-2.3); POTASSIUM 3.9 mEq/L (3.5-5.2); SODIUM 132 mEq/L (134-144); TOTAL PROTEIN 5.1 g/dL (6.3-8.2)
[2017-01-18] MEDS: METOPROLOL TARTRATE 25 MG TAB PO SCH (05:35)
[2017-01-18] MEDS ORDERED: POTASSIUM Cl (KCl) 50 ML IV ONE ×2 (06:08→21:47)
[2017-01-18] MEDS ORDERED: MAGNESIUM SULF 1 GM/DEXTROSE 100 ML IV ONE (06:09)
[2017-01-18] MEDS ORDERED: CALCIUM GLUCONATE 50 ML IV ONE (06:10)
[2017-01-18] MEDS: FUROSEMIDE 40 MG/4 ML VIAL IVP SCH (08:48)
[2017-01-18] MEDS: GABAPENTIN 100 MG CAP TUBE SCH ×2 (08:49→22:02)
[2017-01-18] MEDS: AMIODARONE HCL 200 MG TAB TUBE SCH (08:49)
[2017-01-18] MEDS: CHLORHEXIDINE GLUCONATE 15 ML UDL PO SCH ×2 (08:59→22:02)
--- NOTE | 2017-01-18 10:04 | PCMIDPN ---
Assessment/Plan: Assessment: sepsis due to peritonitis from sigmoid colon rupture due to diverticulitis. Extubated and improving. Presently on Zosyn monotherapy for the peritonitis. On Bactrim as well secondary to stenotrophomonas isolated from bronch. WBC elevation persists -- suspect this is all peritonitis result-possible leukemoid response. Small increasing creatinine likely due to effects of Bactrim. Plan: 1) Continue Zosyn. 2) continue Bactrim for possible stenotrophomonas infection. 3) follow clinical course. 01/18/17 13:42 Subjective: Patient is resting in her hospital bed. Family is present in her room. Patient is able to verbalize and communicate effectively although some of her responses seem a little confused. No fevers or chills. No significant overnight events. Objective: Zosyn # 9 Bactrim # 1 Vital Signs Temp Pulse Resp BP Pulse Ox 36.7 C 66 18 119/55 L 93 01/18/17 06:00 01/18/17 07:00 01/18/17 07:00 01/18/17 07:00 01/18/17 07:00 Microbiology 01/12/17 14:00 Blood Culture - Final Blood 01/12/17 14:00 Blood Panel (PCR) - Final Blood Staph Coagulase Negative Laboratory Results 01/18/17 04:40 01/18/17 04:40 01/17/17 01/18/17 01/19/17 05:59 05:59 05:59 Intake Total 3213 3438 Output Total 3145 4220 Balance 68 -782 - Physical Exam General Appearance: WD/WN, alert, no apparent distress, non-toxic Respiratory: lungs clear, normal breath sounds, respiratory distress (Mild) Cardiac/Chest: regular rate, rhythm, No tachycardia, No irregularly irregular Extremities: non-tender, normal inspection Abdomen: soft, tender, No mass Skin: normal color, warm/dry, No rash Neuro/Psych: alert, normal mood/affect, oriented x 3 ICD10 Worksheet Patient Problems: Problems Problem Status Onset Atrial fibrillation Acute Diverticulitis Acute
--- NOTE | 2017-01-18 10:16 | SOAPPROG ---
SOAP Progress Note Assessment/Plan: Assessment: Improving. Await MACHINIST MATE clearance to advance diet. Ambulate, IS. Plan: 01/05/17 09:04 01/06/17 12:35 01/07/17 08:35 01/08/17 09:46 01/08/17 09:50 01/09/17 11:01 01/10/17 12:54 01/11/17 11:23 01/12/17 13:46 01/13/17 09:42 01/14/17 11:09 01/15/17 14:46 01/16/17 11:22 01/16/17 11:24 01/17/17 12:16 01/18/17 10:14 Subjective: Patient feels better, minimal abd pain. No N/V. Objective: Vital Signs Temp Pulse Resp BP Pulse Ox 36.2 C 73 20 130/60 H 98 01/18/17 08:00 01/18/17 10:00 01/18/17 10:00 01/18/17 10:00 01/18/17 10:00 Microbiology 01/12/17 14:00 Blood Culture - Final Blood 01/12/17 14:00 Blood Panel (PCR) - Final Blood Staph Coagulase Negative Laboratory Results 01/18/17 04:40 01/18/17 04:40 01/17/17 01/18/17 01/19/17 05:59 05:59 05:59 Intake Total 3213 3438 Output Total 3145 4220 Balance 68 -782 PT 15.6 SEC (12.0-15.0) H 01/11/17 13:45 INR 1.24 (0.83-1.16) H 01/11/17 13:45 Alert, NAD Abd soft, NTTP Inc without erythema FRANK serous Ostomy functioning ICD10 Worksheet Patient Problems: Problems Problem Status Onset Atrial fibrillation Acute Diverticulitis Acute - ICD10 Problem Qualifiers (1) Diverticulitis Qualifiers: Diverticulitis site: D Diverticulitis bleeding: D Diverticulitis complication: D
--- NOTE | 2017-01-18 12:09 | WOCRNPDOC ---
KETURAH Advanced Assessment Note - Skin Integrity Problem, Advanced Assess Right Lateral Ankle Dressing Type: Allevyn Life Dressing Description: Clean/Dry, Intact Exudate Amount: Scant Exudate Color: Brown Exudate Characteristic(s): Dried Integumentary Issue Intervention: Dressing Changed (skin prep,, Silvasorb gel, Allevyn), Dressing Initialed & Dated, Silver Gel Applied Charity Wound Tissue: Erythema (at rim of wound), Intact Charity Wound Swelling: Mild Wound Bed Color: Brown Wound Bed Constitution: Loose Slough Wound Edges: Attached, Punched Out, Well Defined Site Odor: None Site Measurement - Head-to-Toe Length X Width X Depth (cm): 0.5 cm sunday x 0.2 Pressure Injury Stage: Unstageable Pressure Injury Present on Admit: Yes ( reported that, at home, patient c /o "sore from shoe" ) Extremity Temperature: Cool Lymphedema Present: Yes Peripheral Edema Location & Description: 3+ pitting at Bilateral LEs and feet Skin Integrity Problem Comment: Brown slough loosened readily during cleansing with NS and gauze, revealing smooth, pink tissue at base. Continuing plan of care as previously indicated, with the addition of soft heel protector boots, placed by staff. Heels are pink, blanchable, intact, with turgor WDL. EH Delarosa present during care. Right Distal Abdomen Blister Dressing Type: Hydrocolloid Dressing Description: Clean/Dry, Intact Right Neck Abrasion Dressing Type: Allevyn Life Dressing Description: Clean/Dry, Intact Medial Distal Abdomen Blister Dressing Type: Hydrocolloid Dressing Description: Clean/Dry, Intact Right Lateral Abdomen lap site Dressing Type: Gauze Dressing Description: Clean/Dry, Intact Right Lateral Abdomen Skin Tear Dressing Type: Hydrocolloid Dressing Description: Clean/Dry, Intact - Ileostomy Assessment, Advanced Right Upper Abdomen Ileostomy Ileostomy Appliance Intact: Yes Ileostomy Appliance Currently in Use: Two Piece Flat, 2 3/4, Moldable Stoma Color: Red Stoma Turgor: Moist Stoma Shape: Oval, Irregular Stoma Height: Protruding Ileostomy Effluent: Liquid, Bile Ileostomy Comment/Treatment Details: Ostomy Care follow-up: interlocker maintainer Diana reports that skin barrier and pouch were changed yesterday by EH Jones. Skin barrier is intact and well-placed. Checked in with about questions and supplies: He reports that samples arrived to home last week, the day after order was placed, and that he currently has no new questions.
[2017-01-18 12:56] LABS: POTASSIUM 4.2 mEq/L (3.5-5.2)
[2017-01-18] MEDS: LORazepam 2 MG/ML INJ IVP PRN (13:46)
[2017-01-18] MEDS: METOPROLOL TARTRATE 25 MG TAB TUBE SCH ×2 (14:02→23:41)
[2017-01-18] MEDS ORDERED: LIDOCAINE 1% 30 ML SDV ONE (15:10)
[2017-01-18] MEDS ORDERED: LIDOCAINE 2% JELLY 5 ML TUBE ONE (15:11)
[2017-01-18] MEDS ORDERED: fentanYL/NACL/100 ML BAG IV ONE (15:12)
[2017-01-18] MEDS ORDERED: PROPOFOL/EMULSION 1,000 MG/100 ML BOTTLE IV ONE (15:12)
[2017-01-18] MEDS ORDERED: HEPARIN 25,000 UNIT in NS 500 ML IV SCH (15:30)
[2017-01-18] MEDS ORDERED: HEPARIN 25,000 UNIT in D5W 500 ML IV SCH (15:30)
[2017-01-18] MEDS ORDERED: MIDAZOLAM 2 MG/2 ML VIAL IVP ONE (16:00)
[2017-01-18] MEDS ORDERED: ALBUMIN 5% 500 ML IV ONE (16:13)
[2017-01-18] MEDS ORDERED: ALBUMIN 5% 500 ML BOTTLE IV ONE (16:14)
--- NOTE | 2017-01-18 16:14 | PDINTPN ---
[employer] Worker Progress Note Assessment/Plan: Assessment: 71 F with diverticulitis admitted 01/04 with abdominal pain and had robotic sigmoid hemicolectomy. There were no obvious complications and she was sent to the floor, but developed increasing pain and somnolence so was transferred to the ICU 01/[address] revealing an 11 cm pelvic hematoma and extraluminal air. She returned to the OR for evacuation of the hematoma and creation of an ileostomy. She was extubated the next morning, but developed atrial fibrillation , which she may have had twice in previous years (family was uncertain). * Peritonitis following sigmoid resection complicated by anastamotic leak. Blood cultures are currently growing a GNR, and she is being treated with ertapenem. She has minimal pressor requirements and her wbc was reduced 01/08. CT Abdomen shows some residual fluid collections, improved 01/17 compared to . WBC remains high, but afebrile. Off Micafungin. On Zosyn, Bactrim. Id following. * Afib with RVR. She was initially treated with amiodarone, followed by a brief trial of esmolol (dropped BP). She got one dose of Digoxin on 01/08, but worsening renal function makes that a less desirable choice. Diltiazem was added 01/09, and rate is now well controlled with a combination of oral amio, metoprolol (increased to 25 TID). Rate controlled with a Cardizem drip, in normal sinus rhythm currently. Echo unremarkable as were serial troponins. On full-dose anticoagulation with heparin. Will change to Lovenox. * Respiratory failure with hypoxemia - recurrent, now secondary to thick mucus plugging. Re-intubated today, status post bronchoscopy today as well. * Pneumonia, associated with increasing secretions today and recurrent respiratory failure. She was unable to handle the secretions, likely were building up over several days. Re-intubated and bronchoscopy was done with removal of secretions. Will continue ventilatory support for now, read bronch tomorrow. 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 Cr down slightly, received lasix 01/13, I<O. Hypernatremia resolved with increased TF flushes. * Transaminitis- resolved. * Leukocytosis. White blood cell count remains elevated at approximately 30, 000. Afebrile. Will follow. * Anemia- HCT 24 with a hemoglobin of 8, no evidence of active bleeding. * Bacteremia: 2 Gram positives in Blood Cx drawn from central line, likely contaminant. * Acute encephalopathy: Toxic metabolic in nature, secondary to peritonitis and severe sepsis. Resolved. Plan: Continue aggressive supportive care in the intensive care unit. Continue full anticoagulation for AF. Back on the ventilator as of today, likely will need several days of ventilatory support. Will repeat therapeutic bronchoscopy tomorrow. Swallow eval will need to be readdressed once extubated. NG tube will need to be put back. Lasix for effusions, edema as tolerated. ANDRÉS prior to discharge. Follow WBC, CXR, lab, ABG. Await culture results from bronchoscopy today. All the above was discussed with the patient's family in the morning and after her procedures, respiratory, nursing, and the ICU multi disciplinary team. 50 minutes of critical care time was spent directly with the patient prior to eventual intubation and bronchoscopy. Subjective: Weak but oriented and conversant initially. Increasing secretions throughout the day. Eventual acute respiratory failure with saturations in the 70s despite high-flow oxygen. Subsequently intubated. Objective: Vital Signs Temp Pulse Resp BP Pulse Ox 36.9 C 77 17 150/75 H 98 01/18/17 12:00 01/18/17 14:02 01/18/17 14:00 01/18/17 14:02 01/18/17 14:00 Microbiology 01/12/17 14:00 Blood Culture - Final Blood 01/12/17 14:00 Blood Panel (PCR) - Final Blood Staph Coagulase Negative Laboratory Results 01/18/17 04:40 01/18/17 12:20 01/17/17 01/18/17 01/19/17 05:59 05:59 05:59 Intake Total 3213 3438 Output Total 3145 4220 Balance 68 -782 PT 15.6 SEC (12.0-15.0) H 01/11/17 13:45 INR 1.24 (0.83-1.16) H 01/11/17 13:45 Laboratory Tests 01/18/17 01/18/17 01/18/17 04:40 04:40 04:40 Heparin Anti-Xa, Unfract 0.54 Sodium 132 L Potassium 3.9 Chloride 104 Carbon Dioxide 22 BUN 25 H Creatinine 1.2 H Glucose 110 H Calcium 7.7 L Ionized Calcium 1.06 L Magnesium 1.8 Total Bilirubin 1.3 AST 30 ALT 50 Albumin 2.4 L 01/18/17 12:20 Heparin Anti-Xa, Unfract Sodium Potassium 4.2 Chloride Carbon Dioxide BUN Creatinine Glucose Calcium Ionized Calcium Magnesium Total Bilirubin AST ALT Albumin Physical Exam - Physical Exam General Appearance: alert, obese, other (Very weak throughout the day.) EENT: PERRL/EOMI, other (Nasal cannula at 3 L initially) Neck: normal inspection (Large neck. In possible JVD) Respiratory: decreased breath sounds (Bilaterally at the bases), rhonchi ( Central rhonchi with turning that is there is difficult for her to cough out.) Cardiac/Chest: regular rate, rhythm, other (Distant heart tones) Abdomen: non-tender, soft, distended, No normal bowel sounds (Decreased, few present), No guarding Pelvic Exam: other (Lisa catheter in place, output greater than intake last 24 hours) Skin: warm/dry, pallor Extremities: pedal edema, swelling Neuro/Psych: no motor/sensory deficits (Moves all extremities equally although globally weak. Good hand cable wirer on the right side, equals the left and lower extremity strength on the right equals left. No focal findings. Report sensation bilaterally), No cognition abnormalities ICD10 Worksheet Patient Problems: Problems Problem Status Onset Atrial fibrillation Acute Diverticulitis Acute
[2017-01-18] MEDS: ENOXAPARIN 100 MG/ML SYR SC SCH (16:50)
[2017-01-18 17:28] LABS: CALCULATED OXYGEN SATURATION 98 % (92-95)
[2017-01-18] MEDS ORDERED: LIDOCAINE 2% JELLY 5 ML TUBE TP ONE (17:30)
[2017-01-18] MEDS ORDERED: LIDOCAINE 1% 30 ML SDV MISC ONE (17:30)
[2017-01-18 17:31] LABS: BASE EXCESS -4.8 mEq/L (-2.5-2.5); BICARBONATE 19 mEq/L (22-26); MEASURED OXYGEN SATURATION 98 % (92-95); PCO2 30 mmHg (34-38); PO2 100 mmHg (65-75); TCO2 20 mEq/L (23-27)
[2017-01-18 17:33] LABS: O2 CONCENTRATIION 60 % (0-100); P/F RATIO 167 RATIO; TOTAL RATE 18
[2017-01-18] MEDS ORDERED: ACETYLCYSTEINE 20% IH/PO 30 ML VIAL IH SCH (18:00)
[2017-01-18 18:52] LABS: POTASSIUM 3.9 mEq/L (3.5-5.2)
[2017-01-18] MEDS ORDERED: ENOXAPARIN 100 MG/ML SYR SC SCH ×2 (21:00)
[2017-01-18] MEDS: CETIRIZINE 10 MG TAB TUBE SCH (22:02)
[2017-01-18] MEDS: FAMOTIDINE 20 MG TAB TUBE SCH (22:02)
[2017-01-18] MEDS: ACETYLCYSTEINE 20% IH SCH (22:03)
[2017-01-19] MEDS: PIPERACILLIN/TAZO 3.375 GM/DEX 50 ML IV SCH ×4 (00:27→18:09)
[2017-01-19 01:02] LABS: POTASSIUM 3.9 mEq/L (3.5-5.2)
[2017-01-19] MEDS ORDERED: POTASSIUM Cl (KCl) 50 ML IV ONE (01:14)
--- NOTE | 2017-01-19 02:49 | GPN ---
[f rep st] PROCEDURE NOTE PROCEDURE: Intubation. REASON FOR INTUBATION: Acute respiratory failure, with saturations into the 70s and secretions whic h she cannot clear. The procedure was done in the patient's room in the intensive care unit. This was an emergent intub ation. The patient's family agreed verbally to the intubation as well as subsequent bronchoscopy. DESCRIPTION OF PROCEDURE: Appropriate time-out was performed. A negative pressure room and a 95 ma sk were not worn secondary to the fact that the patient had no known communicable respiratory pathog ens, has had previous bronchoscopies, and has been in the intensive care unit for number of days, wi th no risk factors for opportunistic infection or communicable pathogens. The patient was intubated over the bronchoscope with a #8 endotracheal tube. 5 mL of 1% lidocaine w as used topically in the posterior oropharynx. The bronchoscope was advanced through a bite block o rally into the larynx. The vocal cords were identified and cannulated. A #8 endotracheal tube was then advanced over the bronchoscope and left in position above the main sravani. The bronchoscope wa s removed. The patient was stabilized and bagged. Saturations at this point were in the mid 80s. Initial bagging was difficult. IMPRESSION: Successful endotracheal intubation. /[id number]/MODL
--- NOTE | 2017-01-19 02:54 | GPN ---
[f rep st] PROCEDURE NOTE DATE OF PROCEDURE: 01/18/2017 PROCEDURE: Therapeutic bronchoscopy. REASON FOR PROCEDURE: Thick secretions in a patient extubated several days previously. DESCRIPTION OF PROCEDURE: The procedure was performed in the patient's room and followed the previo us intubation, dictated separately. The fiberoptic bronchoscope was passed via an adapter on the end of the patient's endotracheal tube while the patient was being bagged. Thick secretions were found at the end of the endotracheal tube and extended into trachea and into the lower tracheobronchial tree bilaterally. Secretions were re moved with some difficulty. There were so thick that on several occasions, the bronchoscope had to be removed with the secretions attached by negative pressure and forcefully ejected from the broncho scope. Secretions were dark and hard. At the end of the procedure, there were no significant secre tions remaining in the trachea or in the lower tracheobronchial tree bilaterally. Underlying anatom y appeared to be normal. There were no endobronchial lesions, no evidence of aspiration of foreign body. The tip of the endotracheal tube was left approximately 3 cm above the main sravani. There were no complications. Oxygen saturations with suctioning came promptly up into the mid 90s. Bagging became significantly easier. At the end of the procedure, a bilateral washing sample was o btained and sent for culture. There were no complications. Intravenous sedation during the bronchoscopy and the intubation includ ed 2 mg of Versed. /[id number]/MODL
[2017-01-19] MEDS: ACETYLCYSTEINE 20% IH SCH ×5 (04:11→23:55)
[2017-01-19] MEDS: SULFAMETHOX IV SCH ×4 (04:43→22:44)
[2017-01-19] MEDS: D5W IV SCH ×4 (04:43→22:44)
[2017-01-19] MEDS: TMP IV SCH ×4 (04:43→22:44)
[2017-01-19 04:44] LABS: % IMMATURE GRANULYOCYTES 1.2 % (0.0-1.1); ABSOLUTE IMMATURE GRANULOCYTES 0.19 10^3/uL (0.00-0.10); ADD DIFF? NO; ADD MORPH? YES; ADD SCAN? NO; ATYPICAL LYMPHOCYTE FLAG 20 (0-99); FRAGMENT RBC FLAG 0 (0-99); HEMATOCRIT 20.1 % (38.0-47.0); LEFT SHIFT FLG 10 (0-99); LIPEMIA HEMOLYSIS FLAG 90 (0-99); MEAN CELL HEMOGLOBIN 30.1 pg (27.9-34.1); MEAN CELL HEMOGLOBIN CONCENTR. 33.8 g/dL (32.4-36.7); MEAN CELL VOLUME 88.9 fL (81.5-99.8); MEAN PLATELET VOLUME 10.6 fL (8.7-11.7); PLATELET CLUMPS FLAG 0 (0-99); PLATELET COUNT 510 10^3/uL (150-400); RED BLOOD CELL COUNT 2.26 10^6/uL (4.18-5.33); RED CELL DISTRIBUTION WIDTH 15.8 % (11.5-15.2)
[2017-01-19 04:47] LABS: HEMOGLOBIN 6.8 g/dL (12.6-16.3)
[2017-01-19 04:56] LABS: ALANINE AMINOTRANSFERASE 44 IU/L (9-52); ALBUMIN 2.5 g/dL (3.5-5.0); ALKALINE PHOSPHATASE 95 IU/L (38-126); ANION GAP 9 mEq/L (8-16); ASPARTATE AMINOTRANSFERASE 31 IU/L (14-46); BILIRUBIN,TOTAL 1.1 mg/dL (0.1-1.4); CALCIUM 7.9 mg/dL (8.5-10.4); CARBON DIOXIDE 20 mEq/l (22-31); CHLORIDE 105 mEq/L (97-110); CREATININE 1.3 mg/dL (0.6-1.0); GLOMERULAR FILTRATION RATE 40; GLUCOSE 96 mg/dL (70-100); MAGNESIUM 1.8 mg/dL (1.6-2.3); POTASSIUM 4.5 mEq/L (3.5-5.2); SODIUM 134 mEq/L (134-144); TOTAL PROTEIN 4.8 g/dL (6.3-8.2)
[2017-01-19 05:04] LABS: BASE EXCESS -5.3 mEq/L (-2.5-2.5); BICARBONATE 18 mEq/L (22-26); IONIZED CALCIUM 1.12 MMOL/L (1.12-1.30); MEASURED OXYGEN SATURATION 97 % (92-95); PCO2 25 mmHg (34-38); PO2 94 mmHg (65-75); TCO2 18 mEq/L (23-27)
[2017-01-19 05:05] LABS: ASSIST CONTROL YES
[2017-01-19] MEDS ORDERED: MAGNESIUM SULF 1 GM/DEXTROSE 100 ML IV ONE (05:05)
[2017-01-19 05:06] LABS: O2 CONCENTRATIION 40 % (0-100); P/F RATIO 235 RATIO
[2017-01-19 05:07] LABS: TOTAL RATE 19
[2017-01-19 05:53] LABS: PLATELET ESTIMATE INCREASED (ADEQ)
[2017-01-19 05:55] LABS: POLYCHROMASIA 2+
[2017-01-19] MEDS: METOPROLOL TARTRATE 25 MG TAB TUBE SCH ×3 (07:19→20:37)
[2017-01-19] MEDS ORDERED: ALBUTEROL 3 ML DEYVIAL ONE (07:54)
[2017-01-19 08:11] LABS: % IMMATURE GRANULYOCYTES 1.2 % (0.0-1.1); ABSOLUTE IMMATURE GRANULOCYTES 0.17 10^3/uL (0.00-0.10); ADD DIFF? NO; ADD MORPH? NO; ADD SCAN? NO; ATYPICAL LYMPHOCYTE FLAG 0 (0-99); FRAGMENT RBC FLAG 0 (0-99); HEMATOCRIT 21.5 % (38.0-47.0); HEMOGLOBIN 7.2 g/dL (12.6-16.3); LEFT SHIFT FLG 20 (0-99); LIPEMIA HEMOLYSIS FLAG 80 (0-99); MEAN CELL HEMOGLOBIN 29.9 pg (27.9-34.1); MEAN CELL HEMOGLOBIN CONCENTR. 33.5 g/dL (32.4-36.7); MEAN CELL VOLUME 89.2 fL (81.5-99.8); MEAN PLATELET VOLUME 10.4 fL (8.7-11.7); PLATELET CLUMPS FLAG 10 (0-99); PLATELET COUNT 459 10^3/uL (150-400); RED BLOOD CELL COUNT 2.41 10^6/uL (4.18-5.33); RED CELL DISTRIBUTION WIDTH 15.8 % (11.5-15.2)
[2017-01-19] MEDS: ALBUTEROL 3 ML DEYVIAL IH PRN ×3 (09:11→23:55)
[2017-01-19] MEDS: GABAPENTIN 100 MG CAP TUBE SCH ×2 (09:22→20:37)
[2017-01-19] MEDS: AMIODARONE HCL 200 MG TAB TUBE SCH (09:22)
[2017-01-19] MEDS: ENOXAPARIN 100 MG/ML SYR SC SCH ×2 (09:22→20:37)
[2017-01-19] MEDS: FAMOTIDINE 20 MG TAB TUBE SCH ×2 (09:22→20:37)
[2017-01-19] MEDS: FUROSEMIDE 40 MG/4 ML VIAL IVP SCH (09:22)
[2017-01-19] MEDS: CHLORHEXIDINE GLUCONATE 15 ML UDL PO SCH ×2 (09:23→20:37)
[2017-01-19] MEDS ORDERED: CALCIUM GLUCONATE 50 ML IV ONE (10:13)
[2017-01-19] MEDS: DEXMEDETOMIDINE HCL 400 MCG in NS 100 ML IV SCH ×2 (10:41→20:52)
[2017-01-19 13:58] LABS: POTASSIUM 4.2 mEq/L (3.5-5.2)
--- NOTE | 2017-01-19 14:52 | PCMIDPN ---
Assessment/Plan: Assessment/Plan: 1. Sepsis with Peritonitis secondary to anastomotic leak with bacteremia: -Currently on Zosyn -recent Ct abd with no new fluid collection. -f/u blood cx from 01/15 with ngtd - overall wbc improved today. Will follow trend -reviewed labs and updated today. -care coordinated with RN 2. Possible HAP with stenotrophomonas: -now on bactrim. - had thick secretions yesterday on bronch and required intubated yesterday -Continue with therapy -creatinine noted. follow closely. 3. Coag neg staph bacteremia: - in one set out of two. did have a central line at the time for which one set was supposed to be drawn from. -not on directive therapy at present given possible contaminant. -f/u blood cx without growth. Meds zosyn bactrim. Subjective: Afebrile. intubated, sedated in icu. fio 40%. thick secretions noted yesterday per RN. ALMAZ drain with serous material noted. Objective: Vital Signs Temp Pulse Resp BP Pulse Ox 36.8 C 70 24 H 93/54 L 100 01/19/17 00:00 01/19/17 14:09 01/19/17 14:09 01/19/17 11:00 01/19/17 14:09 Microbiology 01/18/17 15:52 - Final Sputum, Induced/Suctioned Laboratory Results 01/19/17 08:00 01/19/17 12:00 01/18/17 01/19/17 01/20/17 05:59 05:59 05:59 Intake Total 3438 4176.7 Output Total 4220 2040 Balance -782 2136.7 - Physical Exam General Appearance: other (intubated, sedated in icu) EENT: ET Tube Respiratory: coarse breath sounds (mild) Cardiac/Chest: regular rate, rhythm Extremities: No swelling Abdomen: normal bowel sounds, distended, other (less eccymosis noted on left flank. almaz drain with serous material. ) Skin: No erythema ICD10 Worksheet Patient Problems: Problems Problem Status Onset Atrial fibrillation Acute Diverticulitis Acute
[2017-01-19] MEDS ORDERED: LIDOCAINE 1% 30 ML SDV MISC ONE (15:23)
[2017-01-19] MEDS ORDERED: LIDOCAINE 2% JELLY 5 ML TUBE TP ONE (15:23)
--- NOTE | 2017-01-19 15:25 | SOAPPROG ---
SOAP Progress Note Assessment/Plan: Assessment: Cont TF's while intubated. Plan: 01/05/17 09:04 01/06/17 12:35 01/07/17 08:35 01/08/17 09:46 01/08/17 09:50 01/09/17 11:01 01/10/17 12:54 01/11/17 11:23 01/12/17 13:46 01/13/17 09:42 01/14/17 11:09 01/15/17 14:46 01/16/17 11:22 01/16/17 11:24 01/17/17 12:16 01/18/17 10:14 01/19/17 15:23 Subjective: Intubated/bronchoscopy performed for plugs. Objective: Vital Signs Temp Pulse Resp BP Pulse Ox 36.8 C 70 24 H 93/54 L 100 01/19/17 00:00 01/19/17 14:09 01/19/17 14:09 01/19/17 11:00 01/19/17 14:09 Microbiology 01/18/17 15:52 - Final Sputum, Induced/Suctioned Laboratory Results 01/19/17 08:00 01/19/17 12:00 01/18/17 01/19/17 01/20/17 05:59 05:59 05:59 Intake Total 3438 4176.7 Output Total 4220 2040 1300 Balance -782 2136.7 -1300 PT 15.6 SEC (12.0-15.0) H 01/11/17 13:45 INR 1.24 (0.83-1.16) H 01/11/17 13:45 Alert, responsive Abd soft, NTTP FRANK serous Inc without erythema. ICD10 Worksheet Patient Problems: Problems Problem Status Onset Atrial fibrillation Acute Diverticulitis Acute - ICD10 Problem Qualifiers (1) Diverticulitis Qualifiers: Diverticulitis site: D Diverticulitis bleeding: D Diverticulitis complication: D
[2017-01-19] MEDS ORDERED: MIDAZOLAM 2 MG/2 ML VIAL IVP ONE (15:30)
--- NOTE | 2017-01-19 16:41 | PDINTPN ---
Interventionist Progress Note Assessment/Plan: Assessment: 71 F with diverticulitis admitted 01/04 with abdominal pain and had robotic sigmoid hemicolectomy. There were no obvious complications and she was sent to the floor, but developed increasing pain and somnolence so was transferred to the ICU 01/[address] revealing an 11 cm pelvic hematoma and extraluminal air. She returned to the OR for evacuation of the hematoma and creation of an ileostomy. She was extubated the next morning, but developed atrial fibrillation , which she may have had twice in previous years (family was uncertain). * Peritonitis following sigmoid resection complicated by anastamotic leak. Blood cultures are currently growing a GNR, and she is being treated with ertapenem. She has minimal pressor requirements and her wbc was reduced 01/08. CT Abdomen shows some residual fluid collections, improved 01/17 compared to . WBC coming down: 14, remains afebrile. Off Micafungin. On Zosyn, Bactrim. Id following. * Afib with RVR. She was initially treated with amiodarone, followed by a brief trial of esmolol (dropped BP). She got one dose of Digoxin on 01/08, but worsening renal function makes that a less desirable choice. Diltiazem was added 01/09, and rate is now well controlled with a combination of oral amio, metoprolol (increased to 25 TID). Rate controlled with a Cardizem drip. Remains in normal sinus rhythm currently. Echo unremarkable as were serial troponins. On full-dose anticoagulation with Lovenox. * Respiratory failure with hypoxemia - recurrent, secondary to thick mucus plugging. Re-intubated yesterday, for repeat bronchoscopy today.. * Pneumonia, associated with increasing secretions today and recurrent respiratory failure. She was unable to handle the secretions, likely were building up over several days. Re-intubated and bronchoscopy was done with removal of secretions. Will continue ventilatory support for now, read bronch tomorrow. 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 Cr down slightly, received lasix 01/13, I<O. Hypernatremia resolved with increased TF flushes. * Transaminitis- resolved. * Leukocytosis. White blood cell count improving. Afebrile. Will follow. * Anemia- HCT 21 with a hemoglobin of 7, will transfuse 1 unit. No evidence of active bleeding. * Bacteremia: 2 Gram positives in Blood Cx drawn from central line, likely contaminant. Repeat cultures negative * Acute encephalopathy: Toxic metabolic in nature, secondary to peritonitis and severe sepsis. Resolved. Plan: Continue aggressive supportive care in the intensive care unit. Continue full anticoagulation for AF. For 1 unit of packed red cells today. Continue ventilatory support. Repeat therapeutic bronchoscopy today to assess secretions. Swallow eval will need to be readdressed once extubated. NG tube will need to be put back, with 2 feedings restarted. Lasix for effusions, edema as tolerated. ANDRÉS prior to discharge. Follow WBC, CXR, lab, ABG. Await culture results from bronchoscopy. All the above was discussed with the patient's family, respiratory, nursing, and the ICU multi disciplinary team. 50 minutes of critical care time was spent directly with the patient, not including bronchoscopy. Subjective: Doing well. On low-dose Precedex. Arouses, communicates, tries to talk. No evidence of significant congestion or mucus plugging today. Denies shortness of breath. Objective: Vital Signs Temp Pulse Resp BP Pulse Ox 36.8 C 80 19 127/44 H 100 01/19/17 00:00 01/19/17 16:00 01/19/17 16:00 01/19/17 16:00 01/19/17 16:00 Microbiology 01/18/17 15:52 - Final Sputum, Induced/Suctioned Laboratory Results 01/19/17 08:00 01/19/17 12:00 01/18/17 01/19/17 01/20/17 05:59 05:59 05:59 Intake Total 3438 4176.7 Output Total 4220 2040 1300 Balance -782 2136.7 -1300 PT 15.6 SEC (12.0-15.0) H 01/11/17 13:45 INR 1.24 (0.83-1.16) H 01/11/17 13:45 Laboratory Tests 01/19/17 01/19/17 04:30 05:00 pCO2 25 L pO2 94 H ABG pH 7.46 H ABG O2 Saturation 97 H O2 Concentration % 40 Set Respiration Rate 18 Assist Control YES Tidal Volume 600 Calcium 7.9 L Ionized Calcium 1.12 Magnesium 1.8 Total Bilirubin 1.1 AST 31 Alkaline Phosphatase 95 Albumin 2.5 L Physical Exam - Physical Exam General Appearance: alert, no apparent distress, obese, other EENT: PERRL/EOMI, ET tube, other (NG) Neck: normal inspection (No obvious JVD) Respiratory: lungs clear, decreased breath sounds (At bases), rales (Few), No rhonchi, No wheezing Cardiac/Chest: regular rate, rhythm Abdomen: normal bowel sounds, non-tender, soft, other (Stool in ileostomy bag, Nando-Mahan drain in place) Pelvic Exam: other (Lisa catheter in place: Good urine output but input greater than output) Skin: warm/dry (Last 24 hour), pallor Extremities: pedal edema Neuro/Psych: no motor/sensory deficits, No cognition abnormalities ICD10 Worksheet Patient Problems: Problems Problem Status Onset Atrial fibrillation Acute Diverticulitis Acute
[2017-01-19] MEDS: CETIRIZINE 10 MG TAB TUBE SCH (20:37)
[2017-01-19 21:22] LABS: POTASSIUM 4.5 mEq/L (3.5-5.2)
[2017-01-20] MEDS: PIPERACILLIN/TAZO 3.375 GM/DEX 50 ML IV SCH ×5 (00:33→23:34)
--- NOTE | 2017-01-20 03:06 | GPN ---
[f rep st] PROCEDURE NOTE DATE OF PROCEDURE: 01/19/2017 PROCEDURE: Therapeutic bronchoscopy. REASON FOR PROCEDURE: Reassessment of secretions in a patient who had recurrent respiratory failure yesterday secondary to thick secretions, requiring intubation, bronchoscopy and suction. PROCEDURE NOTE: The procedure was done in the intensive care unit. Appropriate time-out was perfor med. N95 masks and negative pressure room was not indicated. Informed consent was obtained from th e patient's . Versed 1 mg was used for conscious sedation. The fiberoptic bronchoscope was passed via an adapter on the end of the patient's endotracheal tube, into the distal trachea and lower tracheobronchial tree bilaterally. Compared to yesterday, secret ions were minimal. These were easily removed with suction and lavage. The underlying airway anatom y appeared normal. There were no complications. Oxygen saturations and vital signs remained normal throughout the proc edure. No cultures were taken as cultures were sent yesterday. IMPRESSION: No evidence of recurrent secretions today. The results were discussed with the patient's following the procedure. /[id number]/MODL
[2017-01-20] MEDS: TMP IV SCH ×4 (04:40→23:34)
[2017-01-20] MEDS: D5W IV SCH ×4 (04:40→23:34)
[2017-01-20] MEDS: DEXMEDETOMIDINE HCL 400 MCG in NS 100 ML IV SCH (04:40)
[2017-01-20] MEDS: SULFAMETHOX IV SCH ×4 (04:40→23:34)
[2017-01-20 04:50] LABS: BASE EXCESS -4.2 mEq/L (-2.5-2.5); BICARBONATE 18 mEq/L (22-26); IONIZED CALCIUM 1.13 MMOL/L (1.12-1.30); MEASURED OXYGEN SATURATION 99 % (92-95); PCO2 23 mmHg (34-38); PO2 119 mmHg (65-75); TCO2 19 mEq/L (23-27)
[2017-01-20 04:51] LABS: CPAP YES; END TIDAL CO2 21; P/F RATIO 298 RATIO
[2017-01-20 04:52] LABS: O2 CONCENTRATIION 40 % (0-100); PATIENT RATE 22; PRESSURE SUPPORT 7
[2017-01-20 04:55] LABS: HEMATOCRIT 22.4 % (38.0-47.0); HEMOGLOBIN 7.5 g/dL (12.6-16.3); LIPEMIA HEMOLYSIS FLAG 80 (0-99); MEAN CELL HEMOGLOBIN CONCENTR. 33.5 g/dL (32.4-36.7); MEAN CELL VOLUME 89.6 fL (81.5-99.8); PLATELET COUNT 537 10^3/uL (150-400); RED CELL DISTRIBUTION WIDTH 15.6 % (11.5-15.2)
[2017-01-20 05:15] LABS: CALCIUM 8.1 mg/dL (8.5-10.4); CARBON DIOXIDE 20 mEq/l (22-31); CHLORIDE 103 mEq/L (97-110); CREATININE 1.3 mg/dL (0.6-1.0); GLOMERULAR FILTRATION RATE 40; GLUCOSE 106 mg/dL (70-100); MAGNESIUM 1.8 mg/dL (1.6-2.3); SODIUM 133 mEq/L (134-144)
[2017-01-20] MEDS: ALBUTEROL 3 ML DEYVIAL IH PRN ×2 (05:15→11:12)
[2017-01-20] MEDS: ACETYLCYSTEINE 20% IH SCH ×4 (05:15→21:48)
[2017-01-20 05:16] LABS: ANION GAP 10 mEq/L (8-16); POTASSIUM 4.8 mEq/L (3.5-5.2)
[2017-01-20] MEDS ORDERED: MAGNESIUM SULF 1 GM/DEXTROSE 100 ML IV ONE (05:18)
[2017-01-20] MEDS: METOPROLOL TARTRATE 25 MG TAB TUBE SCH ×3 (05:59→21:11)
[2017-01-20] MEDS: AMIODARONE HCL 200 MG TAB TUBE SCH (08:47)
[2017-01-20] MEDS: FAMOTIDINE 20 MG TAB TUBE SCH (08:47)
[2017-01-20] MEDS: CHLORHEXIDINE GLUCONATE 15 ML UDL PO SCH ×2 (08:47→19:53)
[2017-01-20] MEDS: FUROSEMIDE 40 MG/4 ML VIAL IVP SCH (08:47)
[2017-01-20] MEDS: GABAPENTIN 100 MG CAP TUBE SCH ×2 (08:47→21:12)
[2017-01-20] MEDS: ENOXAPARIN 100 MG/ML SYR SC SCH ×2 (08:47→21:11)
[2017-01-20] MEDS ORDERED: LIDOCAINE 2% JELLY 5 ML TUBE TP ONE (11:03)
[2017-01-20] MEDS ORDERED: BENZOCAINE UNIT DOSE SPRAY HURRICAINE MM ONE (11:03)
[2017-01-20] MEDS ORDERED: LIDOCAINE 1% 30 ML SDV MISC ONE (11:03)
[2017-01-20] MEDS ORDERED: MIDAZOLAM 2 MG/2 ML VIAL ONE (11:17)
--- NOTE | 2017-01-20 11:22 | SOAPPROG ---
SOAP Progress Note Assessment/Plan: Assessment: Possible extubation today; plan PHARMACY TECHNICIAN TRAINEE clearance to start po. Cont FRANK. Plan: 01/05/17 09:04 01/06/17 12:35 01/07/17 08:35 01/08/17 09:46 01/08/17 09:50 01/09/17 11:01 01/10/17 12:54 01/11/17 11:23 01/12/17 13:46 01/13/17 09:42 01/14/17 11:09 01/15/17 14:46 01/16/17 11:22 01/16/17 11:24 01/17/17 12:16 01/18/17 10:14 01/19/17 15:23 01/20/17 11:21 Subjective: No events, patient denies pain. Objective: Vital Signs Temp Pulse Resp BP Pulse Ox 36.4 C 64 20 114/57 L 100 01/20/17 07:00 01/20/17 08:20 01/20/17 08:00 01/20/17 08:00 01/20/17 08:20 Microbiology 01/18/17 15:52 - Final Sputum, Induced/Suctioned Laboratory Results 01/20/17 04:40 01/20/17 04:40 01/19/17 01/20/17 01/21/17 05:59 05:59 05:59 Intake Total 4176.7 4009 Output Total 2040 4000 Balance 2136.7 9 PT 15.6 SEC (12.0-15.0) H 01/11/17 13:45 INR 1.24 (0.83-1.16) H 01/11/17 13:45 Alert, responsive Abd soft, NTTP Inc without erythema FRANK serous ICD10 Worksheet Patient Problems: Problems Problem Status Onset Atrial fibrillation Acute Diverticulitis Acute - ICD10 Problem Qualifiers (1) Diverticulitis Qualifiers: Diverticulitis site: D Diverticulitis bleeding: D Diverticulitis complication: D
--- NOTE | 2017-01-20 11:43 | PDINTPN ---
Radio Performer Progress Note Assessment/Plan: Assessment: 71 F with diverticulitis admitted 01/04 with abdominal pain and had robotic sigmoid hemicolectomy. There were no obvious complications and she was sent to the floor, but developed increasing pain and somnolence so was transferred to the ICU 01/[address] revealing an 11 cm pelvic hematoma and extraluminal air. She returned to the OR for evacuation of the hematoma and creation of an ileostomy. She was extubated the next morning, but developed atrial fibrillation , which she may have had twice in previous years (family was uncertain). * Peritonitis following sigmoid resection complicated by anastamotic leak. Blood cultures are currently growing a GNR, and she is being treated with ertapenem. She has minimal pressor requirements and her wbc was reduced 01/08. CT Abdomen shows some residual fluid collections, improved 01/17 compared to . WBC coming down: 13.5, remains afebrile. Off Micafungin. On Zosyn, Bactrim. Id following. * Afib with RVR. She was initially treated with amiodarone, followed by a brief trial of esmolol (dropped BP). She got one dose of Digoxin on 01/08, but worsening renal function makes that a less desirable choice. Diltiazem was added 01/09, and rate is now well controlled with a combination of oral amio, metoprolol (increased to 25 TID). Rate controlled with a Cardizem drip as needed. Remains in normal sinus rhythm currently. Echo unremarkable as were serial troponins. On full-dose anticoagulation with Lovenox. * Respiratory failure with hypoxemia - recurrent, secondary to thick mucus plugging. Re-intubated 01/18. Doing well on CPAP. For repeat bronchoscopy today due to increased rhonchi today, then consider extubation if she has no contraindications. * Pneumonia: LLL. She was unable to handle the secretions, likely were building up over several days. Re-intubated and bronchoscopy was done with removal of secretions. Possible extubation today. 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 Cr 2.0, on lasix. Hypernatremia resolved. * Transaminitis - resolved. * Leukocytosis. White blood cell count improving. Afebrile. Will follow. * Anemia- HCT 212 with a hemoglobin of 8, after 1 unit yesterday. No evidence of active bleeding. Follow. May need repeat packed red blood cells tomorrow? * Bacteremia: 2 Gram positives in Blood Cx drawn from central line, likely contaminant. Repeat cultures negative * Acute encephalopathy: Toxic metabolic in nature, secondary to peritonitis and severe sepsis. Resolved. Plan: Continue aggressive supportive care in the intensive care unit. Continue full anticoagulation for AF. Continue ventilatory support. Repeat therapeutic bronchoscopy today to assess secretions, then consider extubation if these are not a significant problem. Swallow eval will need to be readdressed once extubated. Continue NG tube feedings for now. Cont Lasix for effusions, edema as tolerated. ANDRÉS prior to discharge. Follow WBC, CXR, lab, ABG. Await culture results from bronchoscopy. All the above was discussed with the patient's family, respiratory, nursing, and the ICU multi disciplinary team. 35 minutes of critical care time was spent directly with the patient, not including bronchoscopy. Subjective: On ventilator, comfortable, awake, alert and responsive. On low-dose Precedex. Objective: Vital Signs Temp Pulse Resp BP Pulse Ox 36.4 C 64 28 H 122/74 H 100 01/20/17 07:00 01/20/17 11:00 01/20/17 11:00 01/20/17 11:00 01/20/17 11:00 Microbiology 01/18/17 15:52 - Final Sputum, Induced/Suctioned Laboratory Results 01/20/17 04:40 01/20/17 04:40 01/19/17 01/20/17 01/21/17 05:59 05:59 05:59 Intake Total 4176.7 4009 Output Total 2040 4000 Balance 2136.7 9 PT 15.6 SEC (12.0-15.0) H 01/11/17 13:45 INR 1.24 (0.83-1.16) H 01/11/17 13:45 Laboratory Tests 01/20/17 01/20/17 04:40 04:40 pCO2 23 L pO2 119 H ABG pH 7.50 H ABG O2 Saturation 99 H O2 Concentration % 40 PEEP 5 Pressure Support 7 CPAP YES Calcium 8.1 L Ionized Calcium 1.13 Magnesium 1.8 CXR: Left lower lobe atelectasis/infiltrate persists. Small effusion cannot be excluded. Lines and tubes in good position. Physical Exam - Physical Exam General Appearance: alert, no apparent distress, obese, other (On ventilator) EENT: PERRL/EOMI, ET tube, other (NG to) Neck: normal inspection (No obvious JVD) Respiratory: lungs clear (Anteriorly), decreased breath sounds (At bases), rhonchi (Central rhonchi present today, increased.), No wheezing Cardiac/Chest: regular rate, rhythm Abdomen: normal bowel sounds, non-tender, soft, other (Matthew stool in colostomy bag. FRANK drain in place with minimal output) Pelvic Exam: other (Lisa catheter in place. Good urine output. Input equals output last 24 hours.) Skin: warm/dry, pallor Lymphatic: no adenopathy Extremities: pedal edema (Decreasing, trace +lower extremity) Neuro/Psych: no motor/sensory deficits, No cognition abnormalities ICD10 Worksheet Patient Problems: Problems Problem Status Onset Atrial fibrillation Acute Diverticulitis Acute
[2017-01-20] MEDS ORDERED: ACETYLCYSTEINE 20% IH/PO 30 ML VIAL IH SCH (12:00)
[2017-01-20] MEDS ORDERED: MIDAZOLAM 2 MG/2 ML VIAL IVP ONE (12:00)
--- NOTE | 2017-01-20 12:19 | GPN ---
[f rep st] PROCEDURE NOTE DATE OF PROCEDURE: 01/20/2017 PROCEDURE: Therapeutic bronchoscopy. REASON FOR PROCEDURE: Increasing secretions in a patient on the ventilator with recent pneumonia. PROCEDURE NOTE: The procedure was done in the intensive care unit. Appropriate time-out was perfor med. Informed consent was obtained from the patient's . A negative pressure room was not in dicated as she has had several bronchs previously and has no risk factors for airborne communicable respiratory illnesses. An N95 mask was not worn. The fiberoptic bronchoscope was passed via an adapter on the end of the patient's endotracheal tube and into the distal trachea, and from there into the lower tracheobronchial tree bilaterally. There were a modest amount of secretions, slightly more than yesterday, but still fairly minimal. These were not particularly purulent nor thick or tenacious. Secretions were removed with suction and lav age. No cultures were sent. The patient tolerated the procedure well. There were no complications . Vital signs and oxygen saturations remained stable throughout the procedure. There are no apparent contraindications to extubation post procedure. Medications for the procedure included 1 mg of Versed intravenously and approximately 10 mL of 1% li docaine for topical airway anesthesia. /[id number]/MODL
[2017-01-20] MEDS: ONDANSETRON 4 MG/2 ML VIAL IVP PRN ×3 (12:43→21:12)
--- NOTE | 2017-01-20 12:48 | PCMIDPN ---
Assessment/Plan: # Polymicrobial Peritonitis secondary to anastomotic leak s/p washout and ileostomy on 01/08. Last CT suggested source control. --on zosyn, tentatively plan 2-3 weeks. # Possible HAP, due to Stenotrophomonas, extubated today --Plan IV bactrim for 7 days, if Cr increased tomorrow consider decreasing dose to 10 mg/kg divided by 4 # Bacteroides bacteremia secondary to bowel perf/peritonitis: blood cx cleared --Zosyn covers # Increasing Cr : multifactorial, lasix - but also on bactrim + zosyn, monitor closely # Blood cx + s. hominus & epi 1/2 cultures c/w contaminant microbiology 01/07 peritoneal cx: mixed intestinal kecia 01/07 blood cx 1/2 sets Bacteroides 01/12 sputum cultures Gram stain is polymicrobial, culture Stenotrophomonas 01/12 blood cultures 1/2 coagulase negative Staph 01/15 blood cx (2) negative 01/16 Cdiff neg 01/18 BAL : NGTD Medications Zosyn 3.375 g IV Q 6, #11 Bactrim IV @12mg/kg at 350mg q6h #3/ Subjective: extubated today c/o dry mouth and severe fatigue Objective: Vital Signs Temp Pulse Resp BP Pulse Ox 36.4 C 64 28 H 122/74 H 100 01/20/17 07:00 01/20/17 11:00 01/20/17 11:00 01/20/17 11:00 01/20/17 11:00 Microbiology 01/18/17 15:52 - Final Sputum, Induced/Suctioned Laboratory Results 01/20/17 04:40 01/20/17 04:40 01/19/17 01/20/17 01/21/17 05:59 05:59 05:59 Intake Total 4176.7 4009 Output Total 2040 4000 Balance 2136.7 9 - Physical Exam General Appearance: alert, no apparent distress, obese EENT: pale conjunctiva Respiratory: coarse breath sounds, No accessory muscle use Neck: supple Cardiac/Chest: regular rate, rhythm Extremities: pedal edema Abdomen: non-tender, soft, other (Ileostomy w small amount of liquid stool) Pelvic Exam: feldman Skin: pallor, No rash Neuro/Psych: alert, normal mood/affect - Line/s RUE PICC Lines: No drainage, No erythema - Time Spent With Patient Time Spent with Patient: greater than 35 minutes Time Spent with Patient: Greater than 35 minutes spent on this patients care, greater than 50% of time spent counseling, educating, and coordinating care regarding the above mentioned plan. ICD10 Worksheet Patient Problems: Problems Problem Status Onset Atrial fibrillation Acute Diverticulitis Acute
[2017-01-20] MEDS: LEVALBUTEROL 1.25 MG/3 ML DEYVIAL IH SCH ×3 (14:01→21:48)
[2017-01-20] MEDS ORDERED: CALCIUM CARBONATE 500 MG CHEWABLE TAB PO PRN (17:40)
[2017-01-20] MEDS: CETIRIZINE 10 MG TAB TUBE SCH (21:12)
[2017-01-20] MEDS: PANTOPRAZOLE SODIUM 40 MG in NS 100 ML IV SCH (21:12)
[2017-01-21] MEDS: ACETYLCYSTEINE 20% IH SCH ×4 (04:55→21:09)
[2017-01-21] MEDS: LEVALBUTEROL 1.25 MG/3 ML DEYVIAL IH SCH ×4 (04:55→21:09)
[2017-01-21 05:02] LABS: IONIZED CALCIUM 1.13 MMOL/L (1.12-1.30)
[2017-01-21 05:17] LABS: MAGNESIUM 1.8 mg/dL (1.6-2.3); POTASSIUM 4.7 mEq/L (3.5-5.2)
[2017-01-21] MEDS: SULFAMETHOX IV SCH ×3 (06:00→17:36)
[2017-01-21] MEDS: D5W IV SCH ×3 (06:00→17:36)
[2017-01-21] MEDS: TMP IV SCH ×3 (06:00→17:36)
[2017-01-21] MEDS: PIPERACILLIN/TAZO 3.375 GM/DEX 50 ML IV SCH ×3 (06:45→18:31)
[2017-01-21] MEDS: METOPROLOL TARTRATE 25 MG TAB TUBE SCH ×3 (06:45→21:48)
[2017-01-21] MEDS ORDERED: MAGNESIUM SULF 1 GM/DEXTROSE 100 ML IV ONE (07:34)
[2017-01-21] MEDS ORDERED: SCOPOLAMINE HYDROBROMIDE 1.5 MG PATCH TD ONE (08:36)
[2017-01-21] MEDS: ONDANSETRON 4 MG/2 ML VIAL IVP PRN ×2 (08:40→15:23)
[2017-01-21] MEDS: PANTOPRAZOLE SODIUM 40 MG in NS 100 ML IV SCH ×2 (08:40→21:47)
[2017-01-21] MEDS: CHLORHEXIDINE GLUCONATE 15 ML UDL PO SCH ×2 (08:40→21:49)
[2017-01-21] MEDS: GABAPENTIN 100 MG CAP TUBE SCH ×2 (08:40→21:48)
[2017-01-21] MEDS: FUROSEMIDE 20 MG/2 ML VIAL IVP SCH (08:40)
[2017-01-21] MEDS: AMIODARONE HCL 200 MG TAB TUBE SCH (08:40)
[2017-01-21] MEDS: ENOXAPARIN 100 MG/ML SYR SC SCH ×2 (08:40→21:49)
[2017-01-21] MEDS ORDERED: FUROSEMIDE 40 MG/4 ML VIAL IVP SCH (09:00)
--- NOTE | 2017-01-21 09:00 | PDINTPN ---
Management And Budget Analyst Progress Note Assessment/Plan: Assessment: 71 F with diverticulitis admitted 01/04 with abdominal pain and had robotic sigmoid hemicolectomy. There were no obvious complications and she was sent to the floor, but developed increasing pain and somnolence so was transferred to the ICU 01/[address] revealing an 11 cm pelvic hematoma and extraluminal air. She returned to the OR for evacuation of the hematoma and creation of an ileostomy. She was extubated the next morning, but developed atrial fibrillation , which she may have had twice in previous years (family was uncertain), but has required re-intubation. The last on 01 18 secondary to thick secretions and mucus plugging. Now Re extubated and is doing well. * Peritonitis following sigmoid resection complicated by anastamotic leak. Blood cultures are currently growing a GNR, and she is being treated with ertapenem. She has minimal pressor requirements and her wbc was reduced 01/08. CT Abdomen shows some residual fluid collections, improved 01/17 compared to . WBC coming down: 13.5, remains afebrile. Off Micafungin. On Zosyn, Bactrim. Id following. * Afib with RVR. She was initially treated with amiodarone, followed by a brief trial of esmolol (dropped BP). She got one dose of Digoxin on 01/08, but worsening renal function makes that a less desirable choice. Diltiazem was added 01/09, and rate is now well controlled with a combination of oral amio, metoprolol (increased to 25 TID). Off Cardizem. Remains in normal sinus rhythm. Echo unremarkable as were serial troponins. On full-dose anticoagulation with Lovenox. * Respiratory failure with hypoxemia - recurrent, secondary to thick mucus plugging. Re-intubated 01/18. Doing well on CPAP. For repeat bronchoscopy today due to increased rhonchi today, then consider extubation if she has no contraindications. * Pneumonia: LLL. She was unable to handle the secretions, likely were building up over several days. Re-intubated and bronchoscopy was done with removal of secretions. Extubated yesterday doing well, without evidence of recurrent secretions. 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 Cr 1.3, on lasix. Hypernatremia resolved. * Transaminitis - resolved. * Leukocytosis. White blood cell count improving. Afebrile. Will follow. * Anemia- HCT 25 with a hemoglobin of 8, after 1 unit yesterday. No evidence of active bleeding. Follow. May need repeat packed red blood cells tomorrow? * Bacteremia: 2 Gram positives in Blood Cx drawn from central line, likely contaminant. Repeat cultures negative * Acute encephalopathy: Toxic metabolic in nature, secondary to peritonitis and severe sepsis. Resolved. * Nausea. Probably related to surgical issues in lower abdomen. Doubt reflux playing a role but she is being covered for this. On anti nausea preparations/ anti medics. Plan: Continue aggressive supportive care in the intensive care unit. Continue antibiotics, full anticoagulation for AF. Continue bronchopulmonary therapies, mucolytics, moisturized air, cough and sputum clearance. Swallow eval today. Advance oral feedings as tolerated. Cont Lasix for effusions, edema as tolerated. ANDRÉS prior to discharge. Follow WBC, CXR intermittently, lab. All the above was discussed with the patient and her son, respiratory, nursing, and the ICU multi disciplinary team. 40 minutes of critical care time was spent directly with the patient. Subjective: Feels better today. Up in the chair. Still had with physical therapy but legs remain weak. Good cough, able to clear mucus when present. Complains lower abdominal discomfort and related nausea. Objective: Vital Signs Temp Pulse Resp BP Pulse Ox 36.7 C 76 19 142/55 H 99 01/20/17 19:00 01/21/17 06:45 01/21/17 06:00 01/21/17 06:45 01/21/17 06:00 Microbiology 01/18/17 15:52 - Final Sputum, Induced/Suctioned Laboratory Results 01/20/17 04:40 01/21/17 04:45 01/20/17 01/21/17 01/22/17 05:59 05:59 05:59 Intake Total 4009 1949 Output Total 4000 4950 Balance 9 -3001 PT 15.6 SEC (12.0-15.0) H 01/11/17 13:45 INR 1.24 (0.83-1.16) H 01/11/17 13:45 Laboratory Tests 01/20/17 01/21/17 01/21/17 04:40 04:45 04:45 Sodium 133 L Potassium 4.8 Chloride 103 Carbon Dioxide 20 L BUN 31 H Creatinine 1.3 H Calcium 8.1 L Ionized Calcium 1.13 Magnesium 1.8 1.8 CXR: No significant changes in left lower lobe infiltrate/atelectasis and effusion. Right is fairly clear. Better inspiration today. Physical Exam - Physical Exam General Appearance: alert, obese, other (Fatigued appearing, but stronger.) EENT: PERRL/EOMI, other (Nasal cannula at 2 L: 100%.) Neck: normal inspection Respiratory: lungs clear (Anteriorly), decreased breath sounds (At bases, left more so than right), rales (Few rales at bases), rhonchi (Central rhonchi present with cough. Able to clear secretions with coughing), No wheezing Cardiac/Chest: regular rate, rhythm (Distant heart tones) Abdomen: normal bowel sounds (Active bowel sounds), soft, other (Air and stool in colostomy bag), No non-tender (Minimal tenderness) Pelvic Exam: other (Lisa catheter in place: Improved urine output) Skin: warm/dry, pallor Extremities: pedal edema Neuro/Psych: no motor/sensory deficits (Globally weak), No cognition abnormalities ICD10 Worksheet Patient Problems: Problems Problem Status Onset Atrial fibrillation Acute Diverticulitis Acute
--- NOTE | 2017-01-21 10:15 | SOAPPROG ---
SOAP Progress Note Assessment/Plan: Assessment: Scop patch for nausea. INTERNATIONAL MARKETING SPECIALIST eval, cont TF until cleared. Plan: 01/05/17 09:04 01/06/17 12:35 01/07/17 08:35 01/08/17 09:46 01/08/17 09:50 01/09/17 11:01 01/10/17 12:54 01/11/17 11:23 01/12/17 13:46 01/13/17 09:42 01/14/17 11:09 01/15/17 14:46 01/16/17 11:22 01/16/17 11:24 01/17/17 12:16 01/18/17 10:14 01/19/17 15:23 01/20/17 11:21 01/21/17 10:13 Subjective: Patient feels stronger, but c/o nausea. No V. Objective: Vital Signs Temp Pulse Resp BP Pulse Ox 36.7 C 71 16 147/71 H 99 01/20/17 19:00 01/21/17 08:00 01/21/17 08:00 01/21/17 08:00 01/21/17 08:00 Microbiology 01/18/17 15:52 - Final Sputum, Induced/Suctioned Laboratory Results 01/20/17 04:40 01/21/17 04:45 01/20/17 01/21/17 01/22/17 05:59 05:59 05:59 Intake Total 4009 1949 Output Total 4000 4950 Balance 9 -3001 PT 15.6 SEC (12.0-15.0) H 01/11/17 13:45 INR 1.24 (0.83-1.16) H 01/11/17 13:45 Alert, NAD Abd soft, [employer] without erythema FRANK serous ICD10 Worksheet Patient Problems: Problems Problem Status Onset Atrial fibrillation Acute Diverticulitis Acute - ICD10 Problem Qualifiers (1) Diverticulitis Qualifiers: Diverticulitis site: D Diverticulitis bleeding: D Diverticulitis complication: D
[2017-01-21] MEDS ORDERED: ZOLPIDEM TARTRATE 5 MG TAB PO PRN (10:28)
[2017-01-21 10:43] LABS: % IMMATURE GRANULYOCYTES 1.1 % (0.0-1.1); ABSOLUTE IMMATURE GRANULOCYTES 0.16 10^3/uL (0.00-0.10); ADD DIFF? NO; ADD MORPH? NO; ADD SCAN? NO; ATYPICAL LYMPHOCYTE FLAG 20 (0-99); FRAGMENT RBC FLAG 0 (0-99); HEMATOCRIT 25.2 % (38.0-47.0); HEMOGLOBIN 8.5 g/dL (12.6-16.3); LEFT SHIFT FLG 10 (0-99); LIPEMIA HEMOLYSIS FLAG 80 (0-99); MEAN CELL HEMOGLOBIN 29.6 pg (27.9-34.1); MEAN CELL HEMOGLOBIN CONCENTR. 33.7 g/dL (32.4-36.7); MEAN CELL VOLUME 87.8 fL (81.5-99.8); MEAN PLATELET VOLUME 9.7 fL (8.7-11.7); PLATELET CLUMPS FLAG 0 (0-99); PLATELET COUNT 645 10^3/uL (150-400); RED BLOOD CELL COUNT 2.87 10^6/uL (4.18-5.33); RED CELL DISTRIBUTION WIDTH 15.6 % (11.5-15.2)
[2017-01-21 10:58] LABS: CREATININE 1.3 mg/dL (0.6-1.0)
--- NOTE | 2017-01-21 15:57 | PCMIDPN ---
Assessment/Plan: # Polymicrobial Peritonitis secondary to anastomotic leak s/p washout and ileostomy on 01/08. Last CT suggested source control, but now WBC slightly up today and with nausea --on zosyn, tentatively plan 2-3 weeks. --if continued increase in WBC, may need to repeat CT scan # Possible HAP, due to Stenotrophomonas, extubated today --Plan IV bactrim for 7 days, Cr still 1.3 CrCl = 40, decrease to 10mg/kg divided q6h # Bacteroides bacteremia secondary to bowel perf/peritonitis: blood cx cleared --Zosyn covers # Renal insufficiency, CrCl 40, Cr stable # Blood cx + s. hominus & epi 1/2 cultures c/w contaminant # Nausea: worse at time of bactrim infusion, may truncate therapy to ~5 days microbiology 01/07 peritoneal cx: mixed intestinal kecia 01/07 blood cx 1/2 sets Bacteroides 01/12 sputum cultures Gram stain is polymicrobial, culture Stenotrophomonas 01/12 blood cultures 1/2 coagulase negative Staph 01/15 blood cx (2) negative 01/16 Cdiff neg 01/18 BAL : NGTD Medications Zosyn 3.375 g IV Q 6, #12 Bactrim IV @12mg/kg at 350mg q6h #/ Subjective: main c/o nausea and wanting to go back to bed because tired no abdominal pain Objective: Vital Signs Temp Pulse Resp BP Pulse Ox 36.7 C 72 16 119/55 L 100 01/20/17 19:00 01/21/17 14:23 01/21/17 14:23 01/21/17 14:23 01/21/17 14:23 Microbiology 01/18/17 15:52 - Final Sputum, Induced/Suctioned Sputum Culture - Final Laboratory Results 01/21/17 10:35 01/21/17 10:35 01/20/17 01/21/17 01/22/17 05:59 05:59 05:59 Intake Total 4009 1949 Output Total 4000 4950 Balance 9 -3001 - Physical Exam General Appearance: alert, no apparent distress, obese EENT: pale conjunctiva, dry mucous membranes, No scleral icterus Respiratory: other (decreased BS bases), No accessory muscle use Cardiac/Chest: regular rate, rhythm Extremities: pedal edema (trace) Abdomen: non-tender, soft, other (ostomy with greenish liquid w bit of fecal material. FRANK drain with serous fluid) Pelvic Exam: feldman Skin: pallor, No rash Neuro/Psych: alert, normal mood/affect, oriented x 3 - Line/s RUE PICC Lines: No drainage, No erythema ICD10 Worksheet Patient Problems: Problems Problem Status Onset Atrial fibrillation Acute Diverticulitis Acute
[2017-01-21] MEDS ORDERED: D5W IV SCH (16:07)
[2017-01-21] MEDS ORDERED: SULFAMETHOX IV SCH (16:07)
[2017-01-21] MEDS ORDERED: TMP IV SCH (16:07)
[2017-01-21] MEDS: MELATONIN 3 MG TAB PO SCH (21:48)
[2017-01-21] MEDS: CETIRIZINE 10 MG TAB TUBE SCH (21:48)
[2017-01-22] MEDS: D5W IV SCH ×4 (00:24→18:15)
[2017-01-22] MEDS: SULFAMETHOX IV SCH ×4 (00:24→18:15)
[2017-01-22] MEDS: TMP IV SCH ×4 (00:24→18:15)
[2017-01-22] MEDS: PIPERACILLIN/TAZO 3.375 GM/DEX 50 ML IV SCH ×4 (02:12→18:16)
[2017-01-22 04:56] LABS: IONIZED CALCIUM 1.12 MMOL/L (1.12-1.30)
[2017-01-22] MEDS: LEVALBUTEROL 1.25 MG/3 ML DEYVIAL IH SCH ×4 (05:05→20:57)
[2017-01-22] MEDS: ACETYLCYSTEINE 20% IH SCH ×4 (05:05→20:57)
[2017-01-22 05:18] LABS: MAGNESIUM 1.9 mg/dL (1.6-2.3); POTASSIUM 4.9 mEq/L (3.5-5.2)
[2017-01-22] MEDS ORDERED: CALCIUM GLUCONATE 50 ML IV ONE (06:05)
[2017-01-22] MEDS: METOPROLOL TARTRATE 25 MG TAB TUBE SCH ×3 (06:26→20:09)
[2017-01-22] MEDS: PANTOPRAZOLE SODIUM 40 MG in NS 100 ML IV SCH ×2 (08:16→20:07)
[2017-01-22] MEDS: AMIODARONE HCL 200 MG TAB TUBE SCH (08:17)
[2017-01-22] MEDS: GABAPENTIN 100 MG CAP TUBE SCH ×2 (08:17→20:06)
[2017-01-22] MEDS: CHLORHEXIDINE GLUCONATE 15 ML UDL PO SCH ×2 (08:17→20:06)
[2017-01-22] MEDS: ENOXAPARIN 100 MG/ML SYR SC SCH ×2 (08:17→20:06)
[2017-01-22] MEDS: FUROSEMIDE 20 MG/2 ML VIAL IVP SCH (08:17)
[2017-01-22 08:53] LABS: HEMATOCRIT 23.2 % (38.0-47.0); HEMOGLOBIN 7.8 g/dL (12.6-16.3); LIPEMIA HEMOLYSIS FLAG 80 (0-99); MEAN CELL HEMOGLOBIN 29.9 pg (27.9-34.1); MEAN CELL HEMOGLOBIN CONCENTR. 33.6 g/dL (32.4-36.7); MEAN CELL VOLUME 88.9 fL (81.5-99.8); PLATELET COUNT 582 10^3/uL (150-400); RED BLOOD CELL COUNT 2.61 10^6/uL (4.18-5.33); RED CELL DISTRIBUTION WIDTH 15.6 % (11.5-15.2)
--- NOTE | 2017-01-22 11:16 | SOAPPROG ---
SOAP Progress Note Assessment/Plan: Assessment: Improved, still with nausea. Poss d/c bactrim per ID. Advance diet when nausea improved. Poss d/c FRANK. Plan: 01/05/17 09:04 01/06/17 12:35 01/07/17 08:35 01/08/17 09:46 01/08/17 09:50 01/09/17 11:01 01/10/17 12:54 01/11/17 11:23 01/12/17 13:46 01/13/17 09:42 01/14/17 11:09 01/15/17 14:46 01/16/17 11:22 01/16/17 11:24 01/17/17 12:16 01/18/17 10:14 01/19/17 15:23 01/20/17 11:21 01/21/17 10:13 01/22/17 11:14 Subjective: Patient states nausea improved but still present. Minimal pain. Objective: Vital Signs Temp Pulse Resp BP Pulse Ox 36.8 C 72 17 127/62 H 94 01/22/17 08:00 01/22/17 10:00 01/22/17 10:00 01/22/17 10:00 01/22/17 10:00 Microbiology 01/12/17 14:00 Blood Culture - Final Blood Staphylococcus Hominis Blood Panel (PCR) - Final Staph Coagulase Negative 01/15/17 10:50 Blood Culture - Final Blood 01/15/17 10:30 Blood Culture - Final Blood 01/18/17 15:52 - Final Sputum, Induced/Suctioned Sputum Culture - Final Laboratory Results 01/22/17 08:35 01/22/17 04:30 01/21/17 01/22/17 01/23/17 05:59 05:59 05:59 Intake Total 1949 2817 Output Total 4112 9418 Balance -3001 -1028 PT 15.6 SEC (12.0-15.0) H 01/11/17 13:45 INR 1.24 (0.83-1.16) H 01/11/17 13:45 Alert, NAD Abd soft, [employer] without erythema FRANK serous. ICD10 Worksheet Patient Problems: Problems Problem Status Onset Atrial fibrillation Acute Diverticulitis Acute - ICD10 Problem Qualifiers (1) Diverticulitis Qualifiers: Diverticulitis site: D Diverticulitis bleeding: D Diverticulitis complication: D
--- NOTE | 2017-01-22 14:13 | PDINTPN ---
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 There were no obvious complications and she was sent to the floor, but developed increasing pain and somnolence so was transferred to the ICU 01/[address] revealing an 11 cm pelvic hematoma and extraluminal air. She returned to the OR for evacuation of the hematoma and creation of an ileostomy. She was extubated the next morning, but developed atrial fibrillation , which she may have had twice in previous years (family was uncertain), but has required re-intubation. The last on 01 18 secondary to thick secretions and mucus plugging. Now Re extubated and is doing well. * Peritonitis following sigmoid resection complicated by anastamotic leak. Blood cultures are currently growing a GNR, and she is being treated with ertapenem. She has minimal pressor requirements and her wbc was reduced 01/08. CT Abdomen shows some residual fluid collections, improved 01/17 compared to . WBC coming down: 13.5, remains afebrile. Off Micafungin. On Zosyn, Bactrim. Id following. * Afib with RVR. She was initially treated with amiodarone, followed by a brief trial of esmolol (dropped BP). She got one dose of Digoxin on 01/08, but worsening renal function makes that a less desirable choice. Diltiazem was added 01/09, and rate is now well controlled with a combination of oral amio, metoprolol (increased to 25 TID). Off Cardizem. Remains in normal sinus rhythm. Echo unremarkable as were serial troponins. On full-dose anticoagulation with Lovenox. * Respiratory failure with hypoxemia - recurrent, secondary to thick mucus plugging. Re-intubated 01/18. Extubated 5 3. Continues do well, without significant problems with congestion or mucus. * Pneumonia: LLL. She was unable to handle the secretions, likely were building up over several days. Re-intubated and bronchoscopy was done with removal of secretions. Extubated as above and doing well, without evidence of recurrent secretions. 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 Cr 1.3, on lasix. Hypernatremia resolved. * Transaminitis - resolved. * Leukocytosis. White blood cell count improving. Afebrile. Will follow. * Anemia- HCT 25 with a hemoglobin of 8, after 1 unit yesterday. No evidence of active bleeding. Follow. May need repeat packed red blood cells tomorrow? * Bacteremia: 2 Gram positives in Blood Cx drawn from central line, likely contaminant. Repeat cultures negative * Acute encephalopathy: Toxic metabolic in nature, secondary to peritonitis and severe sepsis. Resolved. * Nausea. Probably related to surgical issues in lower abdomen. Doubt reflux playing a role but she is being covered for this. On anti nausea preparations/ anti medics. Plan: Continue supportive care in the intensive care unit. Continue antibiotics, full anticoagulation for AF. Continue bronchopulmonary therapies, mucolytics, moisturized air, cough and sputum clearance. Advance oral feedings as tolerated. Cont Lasix.. ANDRÉS prior to discharge. Follow WBC, CXR intermittently, lab. All the above was discussed with the patient and her , respiratory, nursing, and the ICU multi disciplinary team. 35 minutes of critical care time was spent directly with the patient. Subjective: Remains quite weak. Denies shortness of breath. Cough remains strong when she does have some mucus. Not much currently. Slept a little better last night but still was up for good bit of the night. Nausea and abdominal discomfort are less Objective: Vital Signs Temp Pulse Resp BP Pulse Ox 36.8 C 75 21 H 127/60 H 93 01/22/17 08:00 01/22/17 12:00 01/22/17 12:00 01/22/17 12:00 01/22/17 12:00 Microbiology 01/12/17 14:00 Blood Culture - Final Blood Staphylococcus Hominis Blood Panel (PCR) - Final Staph Coagulase Negative 01/15/17 10:50 Blood Culture - Final Blood 01/15/17 10:30 Blood Culture - Final Blood 01/18/17 15:52 - Final Sputum, Induced/Suctioned Sputum Culture - Final Laboratory Results 01/22/17 08:35 01/22/17 04:30 01/21/17 01/22/17 01/23/17 05:59 05:59 05:59 Intake Total 1558 1740 Output Total 6829 4368 Balance -3001 -1028 PT 15.6 SEC (12.0-15.0) H 04/24/17 13:45 INR 1.24 (0.83-1.16) H 01/11/17 13:45 Physical Exam - Physical Exam General Appearance: alert, no apparent distress, obese EENT: PERRL/EOMI, other (On room air) Neck: normal inspection (No obvious JVD) Respiratory: lungs clear (Anteriorly), decreased breath sounds (At bases), rales (Few rales at bases), No rhonchi, No wheezing Cardiac/Chest: regular rate, rhythm Abdomen: normal bowel sounds, non-tender, soft, other (Obese, postop changes, air and stool in colostomy bag) Pelvic Exam: other (Lisa catheter in place. Good urine output, output greater than input.) Skin: warm/dry, pallor Extremities: pedal edema Neuro/Psych: no motor/sensory deficits (Globally weak), No cognition abnormalities ICD10 Worksheet Patient Problems: Problems Problem Status Onset Atrial fibrillation Acute Diverticulitis Acute
--- NOTE | 2017-01-22 14:52 | PCMIDPN ---
Assessment/Plan: Assessment/Plan: * Polymicrobial peritonitis secondary to anastomotic leak status post washout: Continued clinical improvement. White blood cell count continues to decrease. Plan 3 weeks of Zosyn (day ) with repeat CT scan prior to close of therapy to ensure no residual abscess present. * Possible healthcare associated pneumonia due to stenotrophomonas: Clinically improved. Will have completed 5 days of Bactrim at end of day. Given clinical improvement and persistent poor appetite/altered taste, will discontinue after today's doses. * Bacteroides bacteremia: Secondary to peritonitis and covered by Zosyn. * Blood culture positive Staphylococcus hominis: Only present in 1/2 cultures consistent with contamination. 01/22/17 14:48 01/22/17 14:52 Subjective: Nausea improved today but patient complains of no appetite and altered taste. No abdominal pain. Occasional cough present. Complains of debilitation. Objective: Vital Signs Temp Pulse Resp BP Pulse Ox 36.8 C 77 24 H 127/95 H 94 01/22/17 08:00 01/22/17 14:00 01/22/17 14:00 01/22/17 14:00 01/22/17 14:00 Microbiology 01/12/17 14:00 Blood Culture - Final Blood Staphylococcus Hominis Blood Panel (PCR) - Final Staph Coagulase Negative 01/15/17 10:50 Blood Culture - Final Blood 01/15/17 10:30 Blood Culture - Final Blood 01/18/17 15:52 - Final Sputum, Induced/Suctioned Sputum Culture - Final Laboratory Results 01/22/17 08:35 01/22/17 04:30 01/21/17 01/22/17 01/23/17 05:59 05:59 05:59 Intake Total 1940 2815 Output Total 9730 9237 Balance -3040 -2136 Zosyn # 13 Bactrim # 5 Sputum 01/18/2017 no growth Chest x-ray with probable left-sided effusion - Physical Exam General Appearance: alert, no apparent distress EENT: other (Feeding tube in place), No scleral icterus Respiratory: other (Decreased breath sounds at left base) Cardiac/Chest: regular rate, rhythm Abdomen: non-tender, other (Incisions intact without erythema or drainage), No distended - Line/s RUE PICC Lines: No drainage, No erythema ICD10 Worksheet Patient Problems: Problems Problem Status Onset Atrial fibrillation Acute Diverticulitis Acute
[2017-01-22] MEDS ORDERED: ALBUTEROL 3 ML DEYVIAL ONE (18:04)
[2017-01-22] MEDS: MELATONIN 3 MG TAB PO SCH (20:06)
[2017-01-22] MEDS: CETIRIZINE 10 MG TAB TUBE SCH (20:06)
[2017-01-23] MEDS: PIPERACILLIN/TAZO 3.375 GM/DEX 50 ML IV SCH ×4 (00:02→17:48)
[2017-01-23] MEDS: ACETAMINOPHEN 650 MG SUPP PR PRN (00:05)
[2017-01-23] MEDS: METOPROLOL TARTRATE 25 MG TAB TUBE SCH ×3 (05:37→22:15)
[2017-01-23] MEDS: ACETYLCYSTEINE 20% IH SCH ×2 (05:49→11:23)
[2017-01-23] MEDS: LEVALBUTEROL 1.25 MG/3 ML DEYVIAL IH SCH ×4 (05:49→20:54)
[2017-01-23 06:00] LABS: IONIZED CALCIUM 1.16 MMOL/L (1.12-1.30)
[2017-01-23 06:11] LABS: ANION GAP 8 mEq/L (8-16); CALCIUM 8.5 mg/dL (8.5-10.4); CARBON DIOXIDE 23 mEq/l (22-31); CHLORIDE 100 mEq/L (97-110); CREATININE 1.3 mg/dL (0.6-1.0); GLOMERULAR FILTRATION RATE 40; GLUCOSE 105 mg/dL (70-100); MAGNESIUM 1.8 mg/dL (1.6-2.3); POTASSIUM 4.8 mEq/L (3.5-5.2); SODIUM 131 mEq/L (134-144)
[2017-01-23 06:13] LABS: % IMMATURE GRANULYOCYTES 0.9 % (0.0-1.1); ABSOLUTE IMMATURE GRANULOCYTES 0.11 10^3/uL (0.00-0.10); ADD DIFF? NO; ADD MORPH? NO; ADD SCAN? NO; ATYPICAL LYMPHOCYTE FLAG 0 (0-99); FRAGMENT RBC FLAG 0 (0-99); HEMOGLOBIN 7.9 g/dL (12.6-16.3); LEFT SHIFT FLG 20 (0-99); LIPEMIA HEMOLYSIS FLAG 80 (0-99); MEAN CELL HEMOGLOBIN 29.6 pg (27.9-34.1); MEAN CELL HEMOGLOBIN CONCENTR. 32.9 g/dL (32.4-36.7); MEAN CELL VOLUME 89.9 fL (81.5-99.8); MEAN PLATELET VOLUME 9.8 fL (8.7-11.7); PLATELET CLUMPS FLAG 0 (0-99); PLATELET COUNT 585 10^3/uL (150-400); RED BLOOD CELL COUNT 2.67 10^6/uL (4.18-5.33); RED CELL DISTRIBUTION WIDTH 15.6 % (11.5-15.2)
[2017-01-23] MEDS: PANTOPRAZOLE SODIUM 40 MG in NS 100 ML IV SCH ×2 (08:11→22:08)
[2017-01-23] MEDS: AMIODARONE HCL 200 MG TAB TUBE SCH (08:11)
[2017-01-23] MEDS: FUROSEMIDE 20 MG/2 ML VIAL IVP SCH (08:11)
[2017-01-23] MEDS: GABAPENTIN 100 MG CAP TUBE SCH ×2 (08:11→22:11)
[2017-01-23] MEDS: ENOXAPARIN 100 MG/ML SYR SC SCH ×2 (08:11→21:45)
[2017-01-23] MEDS: CHLORHEXIDINE GLUCONATE 15 ML UDL PO SCH ×2 (08:12→21:44)
--- NOTE | 2017-01-23 10:15 | SOAPPROG ---
SOAP Progress Note Assessment/Plan: Assessment: Continued improvement. Denita some po. FRANK d/c'd. Plan: 01/05/17 09:04 01/06/17 12:35 01/07/17 08:35 01/08/17 09:46 01/08/17 09:50 01/09/17 11:01 01/10/17 12:54 01/11/17 11:23 01/12/17 13:46 01/13/17 09:42 01/14/17 11:09 01/15/17 14:46 01/16/17 11:22 01/16/17 11:24 01/17/17 12:16 01/18/17 10:14 01/19/17 15:23 01/20/17 11:21 01/21/17 10:13 01/22/17 11:14 01/23/17 10:12 Subjective: Patient feels better, no N currently. Objective: Vital Signs Temp Pulse Resp BP Pulse Ox 36.5 C 82 18 127/51 H 97 01/23/17 06:00 01/23/17 06:00 01/23/17 06:00 01/23/17 06:00 01/23/17 06:00 Microbiology 01/12/17 14:00 Blood Culture - Final Blood Staphylococcus Hominis Blood Panel (PCR) - Final Staph Coagulase Negative Laboratory Results 01/23/17 05:30 01/23/17 05:30 01/22/17 01/23/17 01/24/17 05:59 05:59 05:59 Intake Total 2817 2668 Output Total 3845 6255 300 [facility] -1028 -857 -300 PT 15.6 SEC (12.0-15.0) H 01/11/17 13:45 INR 1.24 (0.83-1.16) H 01/11/17 13:45 Alert, NAD Abd soft, N[employer] without erythema FRANK serous ICD10 Worksheet Patient Problems: Problems Problem Status Onset Atrial fibrillation Acute Diverticulitis Acute - ICD10 Problem Qualifiers (1) Diverticulitis Qualifiers: Diverticulitis site: D Diverticulitis bleeding: D Diverticulitis complication: D
--- NOTE | 2017-01-23 11:00 | PCMIDPN ---
Assessment/Plan: Assessment/Plan: * Polymicrobial peritonitis secondary to anastomotic leak status post washout: Continued clinical improvement. Continue Zosyn with anticipated 3 week course of therapy (day ) with CT scan prior to close of therapy to ensure no residual intra-abdominal/pelvic abscess. * Possible healthcare associated pneumonia due to stenotrophomonas: Completed 5 days of Bactrim. Repeat respiratory specimen shows no growth. No specific respiratory symptoms at this point. * Bacteroides bacteremia: Secondary to peritonitis and covered by Zosyn. * Blood culture positive Staphylococcus hominis: Only present in 1/2 cultures consistent with contamination. 01/23/17 10:56 Subjective: Patient feels better. No complaints of cough or shortness of breath. Feels like she is beginning to get an appetite. Nausea resolved. Objective: Vital Signs Temp Pulse Resp BP Pulse Ox 36.5 C 82 18 127/51 H 97 01/23/17 06:00 01/23/17 06:00 01/23/17 06:00 01/23/17 06:00 01/23/17 06:00 Microbiology 01/12/17 14:00 Blood Culture - Final Blood Staphylococcus Hominis Blood Panel (PCR) - Final Staph Coagulase Negative Laboratory Results 01/23/17 05:30 01/23/17 05:30 01/22/17 01/23/17 01/24/17 05:59 05:59 05:59 Intake Total 2817 2668 Output Total 3845 3525 300 [facility] -1028 -857 -300 Zosyn # - Physical Exam General Appearance: alert, no apparent distress EENT: No scleral icterus, No thrush Respiratory: lungs clear (Anterolaterally), No respiratory distress Cardiac/Chest: regular rate, rhythm Extremities: No inflammation Abdomen: non-tender, distended (Mild), other (Incisions intact without erythema or drainage) - Line/s RUE PICC Lines: No drainage, No erythema ICD10 Worksheet Patient Problems: Problems Problem Status Onset Atrial fibrillation Acute Diverticulitis Acute
[2017-01-23] MEDS ORDERED: ACETYLCYSTEINE 20% IH/PO 30 ML VIAL IH PRN (13:37)
--- NOTE | 2017-01-23 13:38 | PDINTPN ---
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 There were no obvious complications and she was sent to the floor, but developed increasing pain and somnolence so was transferred to the ICU 01/[address] revealing an 11 cm pelvic hematoma and extraluminal air. She returned to the OR for evacuation of the hematoma and creation of an ileostomy. She was extubated the next morning, but developed atrial fibrillation , which she may have had twice in previous years (family was uncertain), but has required re-intubation. The last on 01 18 secondary to thick secretions and mucus plugging. Now Re extubated and is doing well. * Peritonitis following sigmoid resection complicated by anastamotic leak. Blood cultures are currently growing a GNR, and she is being treated with ertapenem. She has minimal pressor requirements and her wbc was reduced 01/08. CT Abdomen shows some residual fluid collections, improved 01/17 compared to . WBC coming down: 13.5, remains afebrile. Off Micafungin. On Zosyn, off Bactrim. Id following. * Afib with RVR. She was initially treated with amiodarone, followed by a brief trial of esmolol (dropped BP). She got one dose of Digoxin on 01/08, but worsening renal function makes that a less desirable choice. Diltiazem was added 01/09, and rate is now well controlled with a combination of oral amio, metoprolol (increased to 25 TID). Off Cardizem. Remains in normal sinus rhythm. Echo unremarkable as were serial troponins. On full-dose anticoagulation with Lovenox. * Respiratory failure with hypoxemia - recurrent, secondary to thick mucus plugging. Re-intubated 01/18. Extubated 5 3. Continues do well, without significant problems with congestion or mucus. * Pneumonia: LLL. She was unable to handle the secretions, likely were building up over several days. Re-intubated and bronchoscopy was done with removal of secretions. Extubated as above and doing well, without evidence of recurrent secretions. PsA in sputum previously. Did not grow from the latest bronchoscopy. Bactrim stopped after 5 days. 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 Cr 1.3, on lasix. Hypernatremia resolved. Now has mild hyponatremia * Transaminitis - resolved. * Leukocytosis. White blood cell count improving. Afebrile. Will follow. * Anemia- HCT 24, stable. No evidence of active bleeding. Follow. * Bacteremia: 2 Gram positives in Blood Cx drawn from central line, likely contaminant. Repeat cultures negative. * Acute encephalopathy: Toxic metabolic in nature, secondary to peritonitis and severe sepsis. Resolved. * Nausea. Improving. Probably related to surgical issues in lower abdomen. Doubt reflux playing a role but she is being covered for this. On anti nausea preparations/anti medics. Plan: Continue supportive care in the intensive care unit. Continue antibiotics per ID, full anticoagulation for AF. At some point we need to switch to oral anticoagulation. Continue bronchopulmonary therapies, mucolytics , moisturized air, cough and sputum clearance as needed. Advance oral feedings as tolerated. Will DC NG tube and NG feedings. Cont Lasix. ANDRÉS prior to discharge. Follow CBC, CXR intermittently, lab. Increase activity as tolerated. All the above was discussed with the patient, RT, nursing, and the ICU multi disciplinary team. 30 minutes of critical care time was spent directly with the patient. Subjective: Feels better, stronger. Denies nausea. Denies significant shortness of breath. No mucus to be coughed up. Up sitting on the side of the bed getting her hair washed. Objective: Vital Signs Temp Pulse Resp BP Pulse Ox 36.8 C 84 23 H 121/61 H 94 01/23/17 08:00 01/23/17 12:00 01/23/17 12:00 01/23/17 12:00 01/23/17 12:00 Microbiology 01/12/17 14:00 Blood Culture - Final Blood Staphylococcus Hominis Blood Panel (PCR) - Final Staph Coagulase Negative Laboratory Results 01/23/17 05:30 01/23/17 05:30 01/22/17 01/23/17 01/24/17 05:59 05:59 05:59 Intake Total 7626 6690 378 Output Total 5820 1513 300 Balance -1028 -857 78 PT 15.6 SEC (12.0-15.0) H 01/11/17 13:45 INR 1.24 (0.83-1.16) H 01/11/17 13:45 Laboratory Tests 01/23/17 01/23/17 05:30 05:30 Calcium 8.5 Ionized Calcium 1.16 Magnesium 1.8 Physical Exam - Physical Exam General Appearance: alert, no apparent distress, obese EENT: other (NG tube in place. On room air: 94%.) Neck: normal inspection ( no JVD appreciated) Respiratory: lungs clear (Anteriorly), decreased breath sounds (At bases), rales (Few rales at the posterior bases, nonspecific), No respiratory distress, No rhonchi, No wheezing Cardiac/Chest: regular rate, rhythm Abdomen: normal bowel sounds, non-tender, soft (Overweight), other (Postop changes, dressings. Drain removed.) Pelvic Exam: other (Lisa catheter in place, good urine output.) Skin: normal color, warm/dry Extremities: pedal edema Neuro/Psych: no motor/sensory deficits, No cognition abnormalities ICD10 Worksheet Patient Problems: Problems Problem Status Onset Atrial fibrillation Acute Diverticulitis Acute
[2017-01-23] MEDS: CETIRIZINE 10 MG TAB TUBE SCH (22:13)
[2017-01-23] MEDS: MELATONIN 3 MG TAB PO SCH (22:14)
[2017-01-24] MEDS: PIPERACILLIN/TAZO 3.375 GM/DEX 50 ML IV SCH ×5 (00:06→23:46)
[2017-01-24 04:16] LABS: IONIZED CALCIUM 1.18 MMOL/L (1.12-1.30)
[2017-01-24 04:17] LABS: % IMMATURE GRANULYOCYTES 0.7 % (0.0-1.1); ABSOLUTE IMMATURE GRANULOCYTES 0.09 10^3/uL (0.00-0.10); ADD DIFF? NO; ADD MORPH? NO; ADD SCAN? NO; ATYPICAL LYMPHOCYTE FLAG 20 (0-99); FRAGMENT RBC FLAG 0 (0-99); HEMATOCRIT 24.5 % (38.0-47.0); HEMOGLOBIN 8.2 g/dL (12.6-16.3); LEFT SHIFT FLG 10 (0-99); LIPEMIA HEMOLYSIS FLAG 80 (0-99); MEAN CELL HEMOGLOBIN 29.9 pg (27.9-34.1); MEAN CELL HEMOGLOBIN CONCENTR. 33.5 g/dL (32.4-36.7); MEAN CELL VOLUME 89.4 fL (81.5-99.8); MEAN PLATELET VOLUME 9.3 fL (8.7-11.7); PLATELET CLUMPS FLAG 0 (0-99); PLATELET COUNT 569 10^3/uL (150-400); RED BLOOD CELL COUNT 2.74 10^6/uL (4.18-5.33); RED CELL DISTRIBUTION WIDTH 15.6 % (11.5-15.2)
[2017-01-24 04:27] LABS: ANION GAP 10 mEq/L (8-16); CALCIUM 8.5 mg/dL (8.5-10.4); CARBON DIOXIDE 22 mEq/l (22-31); CHLORIDE 102 mEq/L (97-110); CREATININE 1.2 mg/dL (0.6-1.0); GLOMERULAR FILTRATION RATE 44; GLUCOSE 96 mg/dL (70-100); MAGNESIUM 1.8 mg/dL (1.6-2.3); POTASSIUM 4.4 mEq/L (3.5-5.2); SODIUM 134 mEq/L (134-144)
[2017-01-24] MEDS ORDERED: MAGNESIUM SULF 1 GM/DEXTROSE 100 ML IV ONE (05:00)
[2017-01-24] MEDS: LEVALBUTEROL 1.25 MG/3 ML DEYVIAL IH SCH ×5 (05:13→20:51)
[2017-01-24] MEDS: METOPROLOL TARTRATE 25 MG TAB TUBE SCH ×2 (06:12→22:55)
[2017-01-24] MEDS: FUROSEMIDE 20 MG/2 ML VIAL IVP SCH (08:35)
[2017-01-24] MEDS: GABAPENTIN 100 MG CAP TUBE SCH ×3 (08:35→23:06)
[2017-01-24] MEDS: CHLORHEXIDINE GLUCONATE 15 ML UDL PO SCH ×2 (08:35→22:55)
[2017-01-24] MEDS: PANTOPRAZOLE SODIUM 40 MG in NS 100 ML IV SCH (08:35)
[2017-01-24] MEDS: ENOXAPARIN 100 MG/ML SYR SC SCH (08:35)
[2017-01-24] MEDS: AMIODARONE HCL 200 MG TAB TUBE SCH (08:35)
[2017-01-24] MEDS ORDERED: IBUPROFEN 600 MG TAB PO PRN (09:45)
--- NOTE | 2017-01-24 10:08 | SOAPPROG ---
SOAP Progress Note Assessment/Plan: Assessment: Continued improvement. Consider low-dose toradol for back pain as Cr stable. Plan: 01/05/17 09:04 01/06/17 12:35 01/07/17 08:35 01/08/17 09:46 01/08/17 09:50 01/09/17 11:01 01/10/17 12:54 01/11/17 11:23 01/12/17 13:46 01/13/17 09:42 01/14/17 11:09 01/15/17 14:46 01/16/17 11:22 01/16/17 11:24 01/17/17 12:16 01/18/17 10:14 01/19/17 15:23 01/20/17 11:21 01/21/17 10:13 01/22/17 11:14 01/23/17 10:12 01/24/17 10:07 Subjective: Patient c/o back pain. Objective: Vital Signs Temp Pulse Resp BP Pulse Ox 37.0 C 90 15 117/66 100 01/24/17 04:00 01/24/17 06:00 01/24/17 06:00 01/24/17 06:00 01/24/17 05:13 Laboratory Results 01/24/17 04:00 01/24/17 04:00 01/23/17 01/24/17 01/25/17 05:59 05:59 05:59 Intake Total 2668 1489 Output Total 3525 8750 Balance -857 -2261 PT 15.6 SEC (12.0-15.0) H 01/11/17 13:45 INR 1.24 (0.83-1.16) H 01/11/17 13:45 Alert, NAD Abd soft, NTTP Inc without erythema ICD10 Worksheet Patient Problems: Problems Problem Status Onset Atrial fibrillation Acute Diverticulitis Acute - ICD10 Problem Qualifiers (1) Diverticulitis Qualifiers: Diverticulitis site: D Diverticulitis bleeding: D Diverticulitis complication: D
[2017-01-24] MEDS: OXYCODONE/APAP 5/325 TAB PO PRN ×2 (11:30→12:40)
--- NOTE | 2017-01-24 13:56 | WOCRNPDOC ---
KETURAH Advanced Assessment Note - Skin Integrity Problem, Advanced Assess Generalized Abdomen Surgical Wound/Incision Dressing Type: Open to Air Closure Description: Asaf (intact) Exudate Characteristic(s): None Wound Edges: Attached (healing) Site Odor: None Skin Integrity Problem Comment: Kathy RN reports that asaf are to be removed today. Right Lateral Ankle Dressing Type: Open to Air Exudate Amount: None Wound Bed Constitution: Healed Right Distal Abdomen Blister Dressing Type: Hydrocolloid Dressing Description: Clean/Dry, Intact Medial Distal Abdomen Blister Dressing Description: Intact, Shadowed Integumentary Issue Intervention: Dressing Initialed & Dated (Placed by staff ; Kathy, RN will change) Right Lateral Abdomen Skin Tear & lap site Dressing Type: Hydrocolloid Dressing Description: Clean/Dry, Intact Integumentary Issue Intervention: Dressing Initialed & Dated (placed by staff, dated 01/20) Skin Integrity Problem Comment: Covering low-exudate wounds, hydrocolloid dressings have a wear time of up to 5 days, therefore will re-order all hydrocolloid dressing changes to q5d. Discussed with EH Chavez. Right Lateral Abdomen Skin Tear Dressing Type: Hydrocolloid Dressing Description: Clean/Dry, Intact Integumentary Issue Intervention: Dressing Initialed & Dated (01/20 by staff) Right Lateral Abdomen lap site Dressing Type: Hydrocolloid Dressing Description: Clean/Dry, Intact Integumentary Issue Intervention: Dressing Initialed & Dated (01/20 by staff) - Ileostomy Assessment, Advanced Right Upper Abdomen Ileostomy Ileostomy Appliance Intact: Yes Ileostomy Appliance Currently in Use: Two Piece Flat, 2 3/4, Moldable Ileostomy Effluent: Flatus, Fecal, Thin Ileostomy Comment/Treatment Details: Pouch inflated, in need of "burping" -- reviewed concept with patient and . EH Chavez managing.
--- NOTE | 2017-01-24 14:45 | PDINTPN ---
Production Line Assembler Progress Note Assessment/Plan: Addendum: 4:30 p.m.. The patient has had hip pain throughout the day, getting worse. This is been unrelieved by nonsteroidals and narcotics. She subsequently became hypotensive and quite pale. Examination reveals her mental status to be intact. On oxygen. She appears quite pale and clammy. Examination is unchanged from the morning with the exception that her right lower quadrant is full/firm and pressing on it with seems to result in increased pain sensation related to her hip. She is on full-dose anticoagulation. This will be held. I am worried about a possible retro peritoneal bleed. She will go down for urgent CT scan of the abdomen and pelvis. Hopefully this will include a hip area as well. Bloods are being drawn. She is being placed on Levophed. Colloid and crystalloid is being given. Further plans recommendations will be made based on the results of the above studies. Surgery has been paged: Dr. Weeks is covering. Hematocrit came back and is 19, consistent with acute intra-abdominal or retroperitoneal bleeding. Two units PRBCs ordered. Last dose of Lovenox was approximately 8 hours ago. Will hold further doses. No indication at the current time for reversal with protamine. Assessment: 71 F with diverticulitis admitted 01/04 with abdominal pain and had robotic sigmoid hemicolectomy. There were no obvious complications and she was sent to the floor, but developed increasing pain and somnolence so was transferred to the ICU 01/[address] revealing an 11 cm pelvic hematoma and extraluminal air. She returned to the OR for evacuation of the hematoma and creation of an ileostomy. She was extubated the next morning, but developed atrial fibrillation , which she may have had twice in previous years (family was uncertain), but has required re-intubation. The last on 01 18 secondary to thick secretions and mucus plugging. Now Re extubated and is doing well. * Peritonitis following sigmoid resection complicated by anastamotic leak. Blood cultures are currently growing a GNR, and she is being treated with ertapenem. She has minimal pressor requirements and her wbc was reduced 01/08. CT Abdomen shows some residual fluid collections, improved 01/17 compared to . WBC coming down: 12, remains afebrile. Off Micafungin. On Zosyn, off Bactrim. Id following. * Afib with RVR. She was initially treated with amiodarone, followed by a brief trial of esmolol (dropped BP). She got one dose of Digoxin on 01/08, but worsening renal function makes that a less desirable choice. Diltiazem was added 01/09, and rate is now well controlled with a combination of oral amio, metoprolol (increased to 25 TID). Off Cardizem. Remains in normal sinus rhythm. Echo unremarkable as were serial troponins. On full-dose anticoagulation with Lovenox. * Respiratory failure with hypoxemia: Resolved. Last Re intubated 01/18 secondary to thick mucus plugging. Extubated 01/20. Now doing well, without significant problems with congestion or mucus. * Pneumonia: LLL. She was unable to handle the secretions, likely were building up over several days. Re-intubated and bronchoscopy was done with removal of secretions. Extubated as above and doing well, without evidence of recurrent secretions. PsA in sputum previously. Did not grow from the latest bronchoscopy. Bactrim stopped after 5 days. 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 Cr 1.2, continues to decrease, on lasix. Diuresing well. Hypernatremia resolved. Now has mild hyponatremia: 134 * Transaminitis - resolved. * Anemia- HCT 24, stable. No evidence of active bleeding. Follow. * Bacteremia: 2 Gram positives in Blood Cx drawn from central line, likely contaminant. Repeat cultures negative. * Acute encephalopathy: Toxic metabolic in nature, secondary to peritonitis and severe sepsis. Resolved. * Nausea. Improved. Probably related to surgical issues in lower abdomen. * Nutrition: Nasogastric tube pulled yesterday. Is able to take p.o. does. Calorie count in progress. * Sciatica. Has hip pain with some radicular symptoms. Has a known history of sciatica. Will attempt to control with low-dose nonsteroidals and Percocet as needed. Plan: Continue supportive care in the intensive care unit. Continue antibiotics per ID, full anticoagulation for AF. At some point we need to switch to oral anticoagulation, or just stop. Discussed with Cardiology, no exact clear answer but longer term anticoagulation, for a month or so at least, likely recommended. I will leave her on enoxaparin for now, and consider switching to Eliquis in the next several days.. Continue bronchopulmonary therapies as needed. Advance oral feedings: On a calorie count. Cont Lasix. ANDRÉS prior to discharge: per Cardiology. Follow CBC, CXR intermittently, lab. Increase activity as tolerated. All the above was discussed with the patient, RT, nursing, and the ICU multi disciplinary team. 30 minutes of critical care time was spent directly with the patient in the a.m. , with another 40+ minutes spent with the patient in the afternoon so far. Multiple visits. Issues discussed with the patient's family this afternoon Dr. Weeks, nursing. Subjective: Does not feel quite as good or a strong today. Complains of hip pain on the right with some shooting pain down into her right leg. Has had significant problems with this and sciatica in the past. Denies nausea. Eating. Objective: Vital Signs Temp Pulse Resp BP Pulse Ox 36.7 C 86 22 H 91/75 L 96 01/24/17 08:00 01/24/17 14:00 01/24/17 14:00 01/24/17 14:00 01/24/17 14:00 Laboratory Results 01/24/17 04:00 01/24/17 04:00 01/23/17 01/24/17 01/25/17 05:59 05:59 05:59 Intake Total 2668 1489 Output Total 3525 3750 Balance -857 -2261 PT 15.6 SEC (12.0-15.0) H 01/11/17 13:45 INR 1.24 (0.83-1.16) H 01/11/17 13:45 Laboratory Tests 01/24/17 04:00 Calcium 8.5 Magnesium 1.8 Physical Exam - Physical Exam General Appearance: alert, mild distress, obese EENT: other (On room air) Neck: normal inspection (No JVD) Respiratory: lungs clear, decreased breath sounds (At bases), rales (Few rales at bases left greater than right.), No respiratory distress Cardiac/Chest: regular rate, rhythm (Distant heart tones) Abdomen: normal bowel sounds, non-tender, soft, other (Colostomy with air and stool. Incisions all look good.) Pelvic Exam: other (Lisa catheter in place, diuresing) Skin: warm/dry, pallor Extremities: pedal edema Neuro/Psych: no motor/sensory deficits (Remains globally weak), No cognition abnormalities ICD10 Worksheet Patient Problems: Problems Problem Status Onset Atrial fibrillation Acute Diverticulitis Acute
[2017-01-24] MEDS ORDERED: KETOROLAC 30 MG/1 ML SDV IVP ONE (15:52)
[2017-01-24] MEDS ORDERED: ALBUMIN 5% 500 ML BOTTLE IV ONE (16:17)
[2017-01-24] MEDS ORDERED: ALBUMIN 5% 500 ML IV ONE (16:25)
[2017-01-24] MEDS ORDERED: NOREPINEPHRINE/NS 4 MG/500 ML BAG IV ONE (16:30)
[2017-01-24 16:46] LABS: ADD DIFF? YES; ADD MORPH? YES; ADD SCAN? NO; ATYPICAL LYMPHOCYTE FLAG 20 (0-99); FRAGMENT RBC FLAG 0 (0-99); LEFT SHIFT FLG 10 (0-99); LIPEMIA HEMOLYSIS FLAG 80 (0-99); MEAN CELL HEMOGLOBIN 29.6 pg (27.9-34.1); MEAN CELL HEMOGLOBIN CONCENTR. 31.6 g/dL (32.4-36.7); MEAN CELL VOLUME 93.6 fL (81.5-99.8); MEAN PLATELET VOLUME 9.6 fL (8.7-11.7); PLATELET CLUMPS FLAG 10 (0-99); RED BLOOD CELL COUNT 2.03 10^6/uL (4.18-5.33); RED CELL DISTRIBUTION WIDTH 15.3 % (11.5-15.2)
[2017-01-24 16:54] LABS: PLATELET COUNT 627 10^3/uL (150-400)
[2017-01-24 17:04] LABS: ALANINE AMINOTRANSFERASE 43 IU/L (9-52); ALBUMIN 2.7 g/dL (3.5-5.0); ALKALINE PHOSPHATASE 71 IU/L (38-126); ANION GAP 11 mEq/L (8-16); ASPARTATE AMINOTRANSFERASE 35 IU/L (14-46); BILIRUBIN,TOTAL 1.2 mg/dL (0.1-1.4); CALCIUM 8.3 mg/dL (8.5-10.4); CARBON DIOXIDE 17 mEq/l (22-31); CHLORIDE 99 mEq/L (97-110); CREATININE 1.5 mg/dL (0.6-1.0); GLOMERULAR FILTRATION RATE 34; GLUCOSE 180 mg/dL (70-100); SODIUM 127 mEq/L (134-144); TOTAL PROTEIN 5.4 g/dL (6.3-8.2)
[2017-01-24 17:21] LABS: HYPOCHROMIA 1+; MICROCYTES 1+; PLATELET ESTIMATE INCREASED (ADEQ)
[2017-01-24] MEDS ORDERED: NS 1,000 ML IV ONE (17:22)
[2017-01-24] MEDS ORDERED: NS 1,000 ML IV SCH (17:30)
[2017-01-24 18:25] LABS: INR 1.63 (0.83-1.16); PROTIME(PATIENT) 19.4 SEC (12.0-15.0)
[2017-01-24] MEDS: ONDANSETRON 4 MG/2 ML VIAL IVP PRN (18:49)
--- NOTE | 2017-01-24 19:36 | PDCONSULT ---
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 Portillo. Ms. Cabral developed right hip and flank pain today. She became hypotensive and a CT showed a significant retroperitoneal hemorrhage on a non-contrast study. She is receiving PRBC with BP 90-100 systolic. Her INR is mildly elevated at 1.63 and 2 units of FFP have been ordered followed by 2 additional units PRBC. She has been on Lovenox and received Toradol 30 mg earlier today. These have been stopped. She appears in mild distress with her family at the bedside. She drifts off to sleep when not stimulated. Her abdomen is soft with hypoactive bowel sounds and she has tenderness in the right flank. Her incision and stoma appear uncomplicated. CT was reveived with the family. She has a new right retroperitoneal hematoma without hemoperitoneum. There are bilateral pleural effusion. No free air Imp: spontaneous retroperitoneal hematoma Rec: hold anticoagulants/transfuse 1:1 for now. May need IR angiography/ embolization discussed with family S MD Desi, FACS
[2017-01-24] MEDS: LORazepam 2 MG/ML INJ IVP PRN (20:19)
[2017-01-24] MEDS: NOREPINEPHRINE/NS 500 ML IV SCH (22:52)
[2017-01-24] MEDS: MELATONIN 3 MG TAB PO SCH (22:55)
[2017-01-24] MEDS: CETIRIZINE 10 MG TAB TUBE SCH (22:56)
--- NOTE | 2017-01-25 02:40 | CPEKG ---
Heart Rate: 80 RR Interval: 750 P-R Interval: 248 QRSD Interval: 124 QT Interval: 372 QTC Interval: 430 P [place]: -18 QRS [place]: 67 T Wave [place]: 23 EKG Severity - ABNORMAL ECG - EKG Impression: SINUS RHYTHM EKG Impression: FIRST DEGREE AV BLOCK EKG Impression: RIGHT BUNDLE BRANCH BLOCK Electronically Signed By: Ariel Lopez 25-Jan-2017 18:56:21
[2017-01-25 02:41] LABS: ABSOLUTE NRBC COUNT 0.13 10^3/uL (0-0.01); ADD DIFF? YES; ADD MORPH? NO; ADD SCAN? NO; ATYPICAL LYMPHOCYTE FLAG 40 (0-99); FRAGMENT RBC FLAG 0 (0-99); HEMATOCRIT 22.4 % (38.0-47.0); HEMOGLOBIN 7.3 g/dL (12.6-16.3); LEFT SHIFT FLG 50 (0-99); LIPEMIA HEMOLYSIS FLAG 80 (0-99); MEAN CELL HEMOGLOBIN 30.5 pg (27.9-34.1); MEAN CELL HEMOGLOBIN CONCENTR. 32.6 g/dL (32.4-36.7); MEAN CELL VOLUME 93.7 fL (81.5-99.8); NRBC-AUTO% 0.6 % (0.0-0.2); PLATELET CLUMPS FLAG 0 (0-99); PLATELET COUNT 259 10^3/uL (150-400); RED BLOOD CELL COUNT 2.39 10^6/uL (4.18-5.33); RED CELL DISTRIBUTION WIDTH 15.2 % (11.5-15.2)
[2017-01-25 02:51] LABS: INR 2.23 (0.83-1.16); PROTIME(PATIENT) 24.9 SEC (12.0-15.0)
--- NOTE | 2017-01-25 02:59 | PDCODEBLUE ---
Code Blue Note Called to assist with pt s/p arrest. Pt being ventilated with ambu w/o difficulty. Easy AT DL x1, VC easily vis and 8.0 ETT passed during compressions. Tube confirmed via ETCO2 and BSEB.
[2017-01-25 03:05] LABS: IONIZED CALCIUM 1.07 MMOL/L (1.12-1.30)
[2017-01-25 03:06] LABS: BASE EXCESS -19.4 mEq/L (-2.5-2.5); BICARBONATE 10 mEq/L (22-26); MEASURED OXYGEN SATURATION 36 % (92-95); PCO2 41 mmHg (34-38); TCO2 11 mEq/L (23-27)
[2017-01-25 03:10] LABS: ALANINE AMINOTRANSFERASE 230 IU/L (9-52); ALBUMIN 2.1 g/dL (3.5-5.0); ALKALINE PHOSPHATASE 44 IU/L (38-126); ANION GAP 20 mEq/L (8-16); ASPARTATE AMINOTRANSFERASE 298 IU/L (14-46); BILIRUBIN,TOTAL 2.4 mg/dL (0.1-1.4); CALCIUM 6.8 mg/dL (8.5-10.4); CARBON DIOXIDE 13 mEq/l (22-31); CHLORIDE 105 mEq/L (97-110); GLOMERULAR FILTRATION RATE 24; GLUCOSE 116 mg/dL (70-100); SODIUM 138 mEq/L (134-144)
[2017-01-25] MEDS ORDERED: CALCIUM GLUCONATE 2 GM in D5W 50 ML IV ONE (03:10)
[2017-01-25 03:12] LABS: PO2 29 mmHg (65-75)
[2017-01-25 03:13] LABS: ASSIST CONTROL YES; O2 CONCENTRATIION 100 % (0-100); P/F RATIO 29 RATIO; TOTAL RATE 27
[2017-01-25 03:19] LABS: TROPONIN I 0.047 ng/mL (0-0.034)
--- NOTE | 2017-01-25 03:24 | PDCODEBLUE ---
Code Blue Note 55 minutes of critical care time spent with patient, at bedside, addressing code blue situation which will be outlined below, patient remains critically ill with high risk of morbidity and mortality: - patient was noted to be in a sinus bradycardia rhythm which evolved into PA arrest at approximately 2:20 a.m., CPR was initiated code blue was initiated -prior to this occurrence, oxygen saturation readings have been difficult to obtain, the patient was receiving blood transfusions for hemoglobin level of 5.3 earlier in shift and CT evidence of retroperitoneal bleed as described by Dr. Weeks in his consultation note - the patient received total of 2 mg of epinephrine, 300 mg amiodarone, 1 amp of bicarb, normal saline experience return of circulation at 2:27 a.m. after continuous compressions and intubation - EKG demonstrated sinus mechanism with new right bundle branch block compared to 01/11 EKG which demonstrated atrial fibrillation but no bundle branch morphology -this conduction pattern is in the setting of venous lactate of 11 and is unclear whether it is secondary to overt myocardial damage and ischemia, troponin level pending -I have discussed the above with Dr. Arevalo and she will be involved in reading the patient's echocardiogram was performed - hemoglobin level is 7.3, will not transfuse further packed red cells at this time, will repeat CBC in several hours with a.m. labs - white blood cell count has risen to 21,000, patient is currently in shock requiring pressors, will repeat blood cultures - INR 2.2 and in the setting of recent retroperitoneal hemorrhage, will administer 4 units of FFP at this time, weight based dosing - calcium level low in the setting of blood product, give 2 g calcium gluconate IV - continue on pressor support with Levophed, add vasopressin if needed -patient is not currently requiring any sedation, has potential anoxic brain injury, will avoid sedation if possible to gauge neurologic response and will discuss possibility of HACA with Dr. Arevalo, hemodialysis charge nurse checking inclusion/ exclusion criteria - provided patient's with an update of the above, he was at room-side during the code
[2017-01-25 03:28] LABS: POTASSIUM 6.4 mEq/L (3.5-5.2)
[2017-01-25] MEDS ORDERED: SODIUM BICARBONATE 50 MEQ/50 ML SYR IVP ONE (03:30)
[2017-01-25] MEDS ORDERED: SODIUM BICARBONATE 50 MEQ/50 ML SYR ONE ×2 (03:38→09:30)
[2017-01-25] MEDS: VASOPRESSIN/DEXTROSE 250 ML IV SCH ×3 (03:39→23:56)
[2017-01-25] MEDS: NOREPINEPHRINE/NS 500 ML IV SCH (03:49)
[2017-01-25 03:52] LABS: BILIRUBIN-UNCONJUGATED 1.4 mg/dL (0.0-1.1)
[2017-01-25 04:08] LABS: ACANTHOCYTES 1+; PLATELET ESTIMATE ADEQUATE (ADEQ)
[2017-01-25 04:09] LABS: POLYCHROMASIA 1+
[2017-01-25] MEDS: ALBUTEROL 200 PUFFS/18 GM MDI IH SCH ×6 (04:12→19:57)
[2017-01-25] MEDS ORDERED: SODIUM POLY SULF 15 GM/60 ML BOTTLE TUBE ONE (04:24)
[2017-01-25] MEDS: SODIUM BICARBONATE 150 MEQ in D5W 1,000 ML IV SCH ×2 (04:52→15:14)
[2017-01-25 05:38] LABS: BASE EXCESS -17.1 mEq/L (-2.5-2.5); BICARBONATE 10 mEq/L (22-26); MEASURED OXYGEN SATURATION 99 % (92-95); PCO2 25 mmHg (34-38); TCO2 10 mEq/L (23-27)
[2017-01-25 05:39] LABS: PO2 312 mmHg (65-75)
[2017-01-25 05:40] LABS: ASSIST CONTROL YES
[2017-01-25 05:43] LABS: END TIDAL CO2 22; O2 CONCENTRATIION 90 % (0-100); P/F RATIO 347 RATIO; TOTAL RATE 31
[2017-01-25] MEDS: PROPOFOL/EMULSION 100 ML IV SCH ×2 (06:22→15:14)
[2017-01-25] MEDS: PIPERACILLIN/TAZO 3.375 GM/DEX 50 ML IV SCH ×2 (06:22→11:15)
[2017-01-25 07:03] LABS: ABSOLUTE NRBC COUNT 0.06 10^3/uL (0-0.01); ADD DIFF? YES; ADD MORPH? NO; ADD SCAN? YES; ATYPICAL LYMPHOCYTE FLAG 20 (0-99); FRAGMENT RBC FLAG 0 (0-99); HEMATOCRIT 26.1 % (38.0-47.0); HEMOGLOBIN 8.7 g/dL (12.6-16.3); LEFT SHIFT FLG 80 (0-99); LIPEMIA HEMOLYSIS FLAG 80 (0-99); MEAN CELL HEMOGLOBIN 29.6 pg (27.9-34.1); MEAN CELL HEMOGLOBIN CONCENTR. 33.3 g/dL (32.4-36.7); MEAN CELL VOLUME 88.8 fL (81.5-99.8); MEAN PLATELET VOLUME 10.1 fL (8.7-11.7); NRBC-AUTO% 0.2 % (0.0-0.2); PLATELET CLUMPS FLAG 30 (0-99); PLATELET COUNT 160 10^3/uL (150-400); RED BLOOD CELL COUNT 2.94 10^6/uL (4.18-5.33); RED CELL DISTRIBUTION WIDTH 15.5 % (11.5-15.2)
[2017-01-25 07:24] LABS: INR 2.48 (0.83-1.16); PROTIME(PATIENT) 27.1 SEC (12.0-15.0)
[2017-01-25 07:25] LABS: ALBUMIN 2.4 g/dL (3.5-5.0); ALKALINE PHOSPHATASE 59 IU/L (38-126); ANION GAP 19 mEq/L (8-16); BILIRUBIN,TOTAL 3.9 mg/dL (0.1-1.4); CALCIUM 6.5 mg/dL (8.5-10.4); CARBON DIOXIDE 12 mEq/l (22-31); CHLORIDE 103 mEq/L (97-110); CREATININE 1.9 mg/dL (0.6-1.0); GLOMERULAR FILTRATION RATE 26; GLUCOSE 184 mg/dL (70-100); MAGNESIUM 1.8 mg/dL (1.6-2.3); POTASSIUM 5.3 mEq/L (3.5-5.2); SODIUM 134 mEq/L (134-144); TOTAL PROTEIN 4.7 g/dL (6.3-8.2)
[2017-01-25 07:25] LABS: APTT 43.4 SEC (23.0-38.0)
[2017-01-25 07:34] LABS: TOTAL IRON BINDING CAPACITY 210 ug/dL (260-490)
[2017-01-25 07:36] LABS: % SATURATION 100 % (20-55)
[2017-01-25 07:41] LABS: BILIRUBIN-CONJUGATED 2.5 mg/dL (0.0-0.5); BILIRUBIN-UNCONJUGATED 1.4 mg/dL (0.0-1.1)
[2017-01-25 07:45] LABS: PLATELET ESTIMATE ADEQUATE (ADEQ)
[2017-01-25 07:46] LABS: ACANTHOCYTES 1+; POLYCHROMASIA 1+
[2017-01-25] MEDS: GABAPENTIN 100 MG CAP TUBE SCH ×3 (08:00→23:56)
[2017-01-25] MEDS: AMIODARONE HCL 200 MG TAB TUBE SCH (08:00)
[2017-01-25] MEDS: CHLORHEXIDINE GLUCONATE 15 ML UDL PO SCH ×2 (08:00→21:08)
[2017-01-25] MEDS: METOPROLOL TARTRATE 25 MG TAB TUBE SCH ×2 (08:00→21:30)
[2017-01-25] MEDS: PANTOPRAZOLE SODIUM 40 MG in NS 100 ML IV SCH (08:00)
[2017-01-25] MEDS: NOREPINEPHRINE BITARTRATE 16 MG in NS 250 ML IV SCH ×2 (08:42→15:14)
[2017-01-25] MEDS ORDERED: MAGNESIUM SULF 1 GM/DEXTROSE 100 ML IV ONE (08:43)
[2017-01-25 08:44] LABS: ALANINE AMINOTRANSFERASE 4136 IU/L (9-52)
[2017-01-25 08:58] LABS: ASPARTATE AMINOTRANSFERASE 4985 IU/L (14-46)
--- NOTE | 2017-01-25 08:59 | PDINTPN ---
Gill Box Tender Progress Note Assessment/Plan: Assessment/plan : * Peritonitis following sigmoid resection complicated by anastamotic leak. Blood cultures are currently growing a GNR, and she is being treated with ertapenem. She has minimal pressor requirements and her wbc was reduced 01/08. CT Abdomen shows some residual fluid collections, improved 01/17 compared to . WBC coming down: 12, remains afebrile. Off Micafungin. On Zosyn, off Bactrim. Id following. * Retroperitoneal bleed-status post aggressive transfusion. Has been evaluated by surgery -will follow hemoglobin hematocrit closely -will discuss with surgery, with the consideration of consulting Interventional Radiology. * Status post cor-thought this was a bradycardia which led to a PEA arrest. This was likely respiratory to begin with. -patient currently following commands * Afib with RVR. She was initially treated with amiodarone, followed by a brief trial of esmolol (dropped BP). She got one dose of Digoxin on 01/08, but worsening renal function makes that a less desirable choice. Diltiazem was added 01/09, and rate is now well controlled with a combination of oral amio, metoprolol (increased to 25 TID). Off Cardizem. Remains in normal sinus rhythm. Echo unremarkable as were serial troponins. On full-dose anticoagulation with Lovenox. * Respiratory failure with hypoxemia: Re intubated during code. Currently stable on mechanical ventilation. FiO2 is at 60%. -no changes for now * Pneumonia: LLL. She was unable to handle the secretions, likely were building up over several days. Re-intubated and bronchoscopy was done with removal of secretions. Extubated as above and doing well, without evidence of recurrent secretions. PsA in sputum previously. Did not grow from the latest bronchoscopy. Bactrim stopped after 5 days. 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 Cr now at 2.0. Hypernatremia resolved. Now has mild hyponatremia: 134 * Transaminitis - resolved. * Anemia- HCT 24, stable. No evidence of active bleeding. Follow. * Bacteremia: 2 Gram positives in Blood Cx drawn from central line, likely contaminant. Repeat cultures negative. * Acute encephalopathy: Toxic metabolic in nature, secondary to peritonitis and severe sepsis. Resolved. * Nausea. Improved. Probably related to surgical issues in lower abdomen. * Nutrition: Nasogastric tube pulled yesterday. Is able to take p.o. does. Calorie count in progress. * Sciatica. Has hip pain with some radicular symptoms. Has a known history of sciatica. Will attempt to control with low-dose nonsteroidals and Percocet as needed. 40 minutes of critical care time spent with patient Case discussed with family, nursing, RT and Cardiology. Subjective: Patient is sedated on mechanical ventilation. Following simple commands per nurse Objective: Vital Signs Temp Pulse Resp BP Pulse Ox 36.4 C 92 28 H 122/44 H 100 01/25/17 08:00 01/25/17 08:00 01/25/17 08:00 01/25/17 08:00 01/25/17 08:00 Laboratory Results 01/25/17 06:00 01/25/17 Unknown 01/24/17 01/25/17 01/26/17 05:59 05:59 05:59 Intake Total 1489 8748.9 Output Total 3750 1307 Balance -2261 7441.9 PT 27.1 SEC (12.0-15.0) H 01/25/17 06:45 INR 2.48 (0.83-1.16) H 01/25/17 06:45 Laboratory Results 01/25/17 06:00 01/25/17 Unknown 01/25/17 01/25/17 01/25/17 Unknown 06:45 05:36 PT 27.1 SEC H SEC (12.0 - 15.0) INR 2.48 H (0.83 - 1.16) APTT 43.4 SEC H SEC (23.0 - 38.0) Patient Temperature 36.9 DEGREES DEGREES pCO2 25 mmHg L mmHg (34 - 38) pO2 312 mmHg H D mmHg (65 - 75) Total CO2 10 mEq/L L mEq/L (23 - 27) ABG pH 7.20 L (7.35 - 7.45) ABG PO2/FiO2 Ratio 347 RATIO RATIO ABG O2 Saturation 99 % H D % (92 - 95) ABG Base Excess -17.1 mEq/L L mEq/L (-2.5 - 2.5) ABG Lactic Acid 11.7 mmol/L H mmol/L (0.5 - 1.6) O2 Concentration % 90 % % Respiration Rate 31 Set Respiration Rate 20 Assist Control YES Tidal Volume 600 End Tidal CO2 22 PEEP 5 Glucose 184 mg/dL H D mg/dL (70 - 100) Calcium 6.5 mg/dL L mg/dL (8.5 - 10.4) Magnesium 1.8 mg/dL mg/dL (1.6 - 2.3) Iron 218.0 mcg/dL H mcg/dL (37 - 170) TIBC 210 ug/dL L ug/dL (260 - 490) Iron Saturation 100 % H % (20 - 55) Total Bilirubin 3.9 mg/dL H D mg/dL (0.1 - 1.4) Conjugated Bilirubin 2.5 mg/dL H mg/dL (0.0 - 0.5) Unconjugated Bilirubin 1.4 mg/dL H mg/dL (0.0 - 1.1) ALT 4136 IU/L H IU/L (9 - 52) Alkaline Phosphatase 59 IU/L IU/L (38 - 126) Total Protein 4.7 g/dL L g/dL (6.3 - 8.2) Albumin 2.4 g/dL L g/dL (3.5 - 5.0) Chest [id number] by myself. Endotracheal tube is in good position there is cardiomegaly present as well as smallish lung volumes. Physical Exam - Physical Exam General Appearance: other (Sedated), No alert EENT: PERRL/EOMI, ET tube Neck: non-tender, full range of motion Respiratory: lungs clear, No respiratory distress, No wheezing, No prolonged expiration Cardiac/Chest: normal peripheral pulses, regular rate, rhythm Peripheral Pulses: 2+: carotid (R), carotid (L), femoral (R), femoral (L), dorsalis-pedis (R), dorsalis-pedis (L) Abdomen: distended, No normal bowel sounds (Diminished), No soft (Firm) Pelvic Exam: deferred Rectal: deferred Skin: normal color, warm/dry Extremities: normal range of motion, non-tender, normal inspection, normal capillary refill Neuro/Psych: No alert (Sedated) ICD10 Worksheet Patient Problems: Problems Problem Status Onset Atrial fibrillation Acute Diverticulitis Acute
[2017-01-25] MEDS ORDERED: AMIODARONE HCL 150 MG/3 ML VIAL ONE (09:30)
[2017-01-25] MEDS ORDERED: ATROPINE SULFATE 1 MG/10 ML SYR ONE (09:30)
[2017-01-25] MEDS ORDERED: EPINEPHrine 1 MG/10 ML SYR IVP ONE (09:30)
--- NOTE | 2017-01-25 10:03 | SOAPPROG ---
SOAP Progress Note Assessment/Plan: Assessment: Retroperitoneal hematoma: cont FFP, serial H&H. If it progresses consider IR eval. Cont vent support and follow Cr/UOP. D/w family at length, questions answered. Plan: Subjective: Pt with arrest, code blue with reintubation. Objective: Vital Signs Temp Pulse Resp BP Pulse Ox 36.4 C 92 28 H 122/44 H 100 01/25/17 08:00 01/25/17 08:00 01/25/17 08:00 01/25/17 08:00 01/25/17 08:00 Laboratory Results 01/25/17 06:00 01/25/17 Unknown 01/24/17 01/25/17 01/26/17 05:59 05:59 05:59 Intake Total 1489 8748.9 Output Total 3750 1307 Balance -2261 7441.9 PT 27.1 SEC (12.0-15.0) H 01/25/17 06:45 INR 2.48 (0.83-1.16) H 01/25/17 06:45 Intubated, some spontaneous movement Abd soft Inc without erythema ICD10 Worksheet Patient Problems: Problems Problem Status Onset Atrial fibrillation Acute Diverticulitis Acute - ICD10 Problem Qualifiers (1) Diverticulitis Qualifiers: Diverticulitis site: D Diverticulitis bleeding: D Diverticulitis complication: D
--- NOTE | 2017-01-25 10:13 | HOSPPROG ---
Hospitalist Progress Note Assessment/Plan: DIAGNOSES: # S/P PEA CARDIAC ARREST, LIKELY CAUSED BY ANEMIA AND ACUTE RESPIRATORY INSUFFICIENCY # SPONTANEOUS RETROPERITONEAL BLEED ON ANTICOAG / POST HEMORRHAGIC ANEMIA, S/P TRANSFUSION # ACUTE RESP FAILURE, REINTUBATION #2 # ACUTE METABOLIC ACIDOSIS # ACUTE RENAL FAILURE # A FIB, RAPID V RATE - WILL NEED TO BE OFF ANTICOAG DUE TO HEMORRHAGE # LLL PNEUMONIA, STENOTROPHOMONAS IN SPUTUM # BACTEROIDES BACTEREMIA, LIKELY ABD SOURCE # ACUTE ENCEPHALOPATHY # S/P LAPAROSCOPIC SURGERY FOR DIVERTICULAR DISEASE; S/P INTRAABDOMINAL HEMORRAGE AND SURGICAL EXPLORATION/CLOT EVACUATION This morning she is stable from the standpoint of good cardiac rhythm and maintaining adequate blood pressure though on pressors, And neurologically she is following commands. Her renal function is stable and there is no current sign of ongoing bleeding. Her diaphragms order notably elevated on the x-rays from this morning. This could potentially be from abdominal distention but may also be potentially related to neurologic or muscular diaphragmatic weakness. This may create challenges for trying to extubate her. PLANS: -Continue supportive care with mechanical ventilation, IV pressors, fluids as needed -Receiving FFP to reverse anticoagulation and coagulopathy at this point; follow blood counts very closely -Continue empiric antibiotics at this point -Follow renal function closely -continue rate control - continue therapies -Mechanical DVT prophylaxis -TPN SUBJECTIVE: patient suffered PE a cardiac arrest last night. This sounds like probably it started as a respiratory issue as she was having significant respiratory distress followed by bradycardia leading eventually to PA arrest. She was resuscitated with standard measures and did get good return of cardiac function with atrial fibrillation rhythm. She does have return of neurologic function and is following commands. She is requiring IV pressor support at this point. Currently sedated on vent, unable to really assess symptoms OBJECTIVE Vitals reviewed: blood pressures with a mean arterial pressure in the mid 60s on pressor support atrial fibrillation, no fever Customer Retention Representative, my review: currently AFib respirations per ventilator, with good pressures in compliance, adequate oxygenation, ET tube appears in good position and secured Exam: Sedated on vent skin slightly cool, pale resps prevent lungs diminished with few rhonchi heart irregular abd distended, somewhat firm unable to assess tenderness central venous lines look okay Objective: Vital Signs Temp Pulse Resp BP Pulse Ox 36.5 C 86 26 H 158/44 H 100 01/25/17 10:00 01/25/17 10:00 01/25/17 10:00 01/25/17 10:00 01/25/17 10:00 Laboratory Results 01/25/17 06:00 01/25/17 Unknown 01/24/17 01/25/17 01/26/17 06:59 06:59 06:59 Intake Total 1489 8748.9 Output Total 3450 1307 Balance -1961 7441.9 PT 27.1 SEC (12.0-15.0) H 01/25/17 06:45 INR 2.48 (0.83-1.16) H 01/25/17 06:45 ICD10 Worksheet Patient Problems: Problems Problem Status Onset Atrial fibrillation Acute Diverticulitis Acute
[2017-01-25 10:17] LABS: SCAN POSITIVE
[2017-01-25 10:43] LABS: INR 2.25 (0.83-1.16); PROTIME(PATIENT) 25.1 SEC (12.0-15.0)
[2017-01-25 10:44] LABS: APTT 43.4 SEC (23.0-38.0)
[2017-01-25 10:53] LABS: FERRITIN - BCH > 10000.0 ng/mL (6.2-264.0)
[2017-01-25 11:23] LABS: ANION GAP 20 mEq/L (8-16); CALCIUM 6.6 mg/dL (8.5-10.4); CARBON DIOXIDE 13 mEq/l (22-31); CHLORIDE 91 mEq/L (97-110); CREATININE 2.1 mg/dL (0.6-1.0); GLOMERULAR FILTRATION RATE 23; GLUCOSE 423 mg/dL (70-100); POTASSIUM 5.3 mEq/L (3.5-5.2); SODIUM 124 mEq/L (134-144)
[2017-01-25] MEDS ORDERED: OXYCODONE/APAP 5/325 TAB TUBE PRN (11:41)
[2017-01-25] MEDS ORDERED: ZOLPIDEM TARTRATE 5 MG TAB TUBE PRN (11:41)
--- NOTE | 2017-01-25 11:58 | ECHO ---
[id number] + + [address] : : [place] [address] : : [phone] + + Adult Echocardiographic Report + ------+ :Name: LOUIS JUSTICE NStudy Date: 01/25/2017 03:17 AM : : Hospital Admission Number: [id number] Locatio n: 250: :: 1945 Gender: Female Height: 69 in : :Age: 72 yrs Race: WH Weight: 244 lb : :Reason For Study: Eval LV Fx : : BSA: 2.2 meters 2 : :History: Respiratory failure, newly intubated, post CPR, : :Acidotic : + ------+ MMode/2D Measurements \T\ Calculations IVSd: 1.5 cm LVIDd: 3.8 cm FS: 38.9 % Ao root diam: 2.8 cm LVPWd: 1.3 cm LVIDs: 2.3 cm EDV(Teich): 60.3 ml ACS: 1.8 cm ESV(Teich): 18.0 ml EF(Teich): 70.1 % Normal Measurement Values: + + :LVIDd (3.5-5.7cm) IVSd (0.6-1.1cm) LVPWd (0.6-1.1cm) Aortic Root (2.0-3.7cm)Left Atrium (1.5-4.0cm): :LV Vol(d) (76-115ml) LV Vol(s) (29-48ml) Ejec Fraction (50-65%)PV Enrico (0.6- 1.2m/s) TV Enrico (0.4-1.0m/s) : :MV E Enrico (0.8-1.0m/s)MV A Enrico (0.3-1.0m/s)LVOT Enrico (0.7-1.2m/s) Asc Ao Enrico ( 0.9-1.8m/s) : + + Doppler Measurements \T\ Calculations MV E max enrico: Ao V2 max: LV V1 max: PA V2 max: 96.3 cm/sec 126.2 cm/sec 83.4 cm/sec 67.9 cm/sec MV A max enrico: Ao max P.4 mmHgLV V1 max PG: PA max P.8 cm/sec 2.8 mmHg 1.8 mmHg MV E/A: 1.8 PI end-d enrico: TR max enrico: 124.9 cm/sec 300.0 cm/sec TR max P.0 mmHg RAP systole: 5.0 mmHg RVSP(TR): 41.0 mmHg Left Ventricle The left ventricle is normal in size. There is moderate to severe concentric left ventricular hypertrophy. At the beginning of the exam there was bradycardia, low volume left venticle with a low normal ejection fraction, as bicarb, pressors were given the ejection fraction improved to 70% with an increased HR and BP. The left ventricular wall motion is normal. Right Ventricle The right ventricle is normal in size and function. Atria The left atrium is mildly dilated. Right atrial size is normal. Mitral Valve The mitral valve is normal in structure and function. There is no mitral valve stenosis. There is no mitral regurgitation noted. Tricuspid Valve There is mild tricuspid regurgitation. Right ventricular systolic pressure is 41mmHg. There is Doppler evidence for mild pulmonary hypertension. Aortic Valve The aortic valve is normal in structure and function. The aortic valve is trileaflet. There is no aortic stenosis. There is no aortic insufficiency. Pulmonic Valve The pulmonic valve is normal in structure and function. trace to mild pulmonic valvular regurgitation. Great Vessels The aortic root is normal size. Pericardium/Pleural There is no pericardial effusion. There is a fat pad seen. Conclusion A complete two-dimensional transthoracic echocardiogram was performed (2D, M-mode, Doppler and color flow Doppler). There is moderate to severe concentric left ventricular hypertrophy. At the beginning of the exam there was bradycardia, low volume left venticle with a low normal ejection fraction, as bicarb, pressors were given the ejection fraction improved to 70% with an increased HR and BP. The left atrium is mildly dilated. The mitral valve is normal in structure and function. There is mild tricuspid regurgitation. Right ventricular systolic pressure is 41mmHg. There is Doppler evidence for mild pulmonary hypertension. The aortic valve is normal in structure and function. The aortic valve is trileaflet. trace to mild pulmonic valvular regurgitation. There is no pericardial effusion. There is a fat pad seen. The left ventricular wall motion is normal. Final Reading Physician: Dr Lexy Arevalo electronically signed on 01/25/2017 11:57 AM Ordering Physician: Angel Starr Performed By: Jason Cho, CESILIACS
[2017-01-25] MEDS: LORazepam 2 MG/ML INJ IVP PRN ×2 (12:07→21:36)
--- NOTE | 2017-01-25 12:24 | PDCARPN ---
Cardiology Progress Note Assessment/Plan: Assessment/plan: 72 yo F admitted 01/04 with abdominal pain, went to OR for lysis of adhesions and sigmoid colectomy. Required re-operation for anastamotic leak. In that setting had AF, now on amiodarone. Had been on lovenox until 01/24 when spontaneous RP bleed dx on CT. Course complicated by sepsis/peritonitis, hypoxic respiratory failure requiring reintubation ( extubated 01/20) and ARF. Early on 01/25 had PEA arrest, likely due to progressive hypoxia and hypovolemia. Received CPR, epi with ROSC. Not a candidate for HACA due to coagulopathy. 1. PEA arrest: echo reviewed. Normal LVEF without ischemic wall motion. RV appears normal. No pericardial effusion. ECG not ischemic. Minimallly elevated troponin likely due to CPR and hypotension. Continue supportive care, per ICU. No indication for cardiac cath. 2. Hx PAF: now in NSR. Continue amio. Anticoag on hold 3. Resp failure: currently intubated. CXR reviewed, elevated diaphragms ( dysfunction vs restriction from abd process?) 4. ARF: had improved, now worse s/p code. 5. Polymicrobial peritonitis: followed by ID and surgery Greater than 30 minutes critical care time spent in direct patient contact, discussion with family and Rick Quevedo, and Sterling and in chart review 01/25/17 12:25 Subjective: Intubated and sedated Reviewed/Discussed With: other (Drs. Cabrera and Sterling) Objective: Vital Signs (8 Hrs) Temp Pulse Resp BP Pulse Ox 01/25/17 10:00 36.5 C 86 26 H 158/44 H 100 01/25/17 08:00 36.4 C 92 28 H 122/44 H 100 01/25/17 07:40 89 100 01/25/17 06:00 36.3 C 92 26 H 120/78 100 01/25/17 04:23 93 30 H Intake/Output (24 Hrs) 01/24/17 01/25/17 01/26/17 05:59 05:59 05:59 Intake Total 1489 8748.9 Output Total 3750 1307 Balance -2261 7441.9 Intake: Oral (ml) 600 500 IV Intake (ml) 511 1912 IV Infused (ml) 3693.9 Albumin 5% 500 ml @ As 500 Directed IV ONCE ONE Rx#: [id number] Norepinephrine/Ns 500 ml 1325.2 @ Titrate IV CONT ALECIA Rx# :[id number] Ns 1,000 ml @ 150 mls/hr 1803 IV CONT ALECIA Rx#: [id number] Vasopressin/Dextrose 250 65.7 ml @ As Directed IV CONT ALECIA Rx#:[id number] Tube Feeding (ml) 253 Tube Flush (ml) 125 Fresh Frozen Plasma (ml) 1143 Packed Red Blood Cells ( 1500 ml) Output: Urine (ml) 3065 1082 Catheter 965 1055 Ileostomy 2100 27 Liquid Stool (ml) 685 225 Colostomy 475 Ileostomy 210 225 intubated and sedated, but per RN is following commands. RRR no m/r/g Lungs clear ant/lat Abd distended with positive bowel sounds No edema Result Diagrams: 01/25/17 06:00 01/25/17 Unknown Cardiac Labs: Cardiac Lab Results (72 Hrs) 01/25/17 01/25/17 09:50 02:30 Troponin I 0.152 H 0.047 H EKG: post arrest: SR RBBB Telemetry: Bradycardia at 2 am, around time of code. Now SR/ST ICD10 Worksheet Patient Problems: Problems Problem Status Onset Atrial fibrillation Acute Diverticulitis Acute
[2017-01-25 12:31] LABS: ANION GAP 23 mEq/L (8-16); CALCIUM 7.3 mg/dL (8.5-10.4); CARBON DIOXIDE 15 mEq/l (22-31); CHLORIDE 97 mEq/L (97-110); CREATININE 2.5 mg/dL (0.6-1.0); GLOMERULAR FILTRATION RATE 19; GLUCOSE 186 mg/dL (70-100); POTASSIUM 5.9 mEq/L (3.5-5.2); SODIUM 135 mEq/L (134-144)
[2017-01-25] MEDS ORDERED: SODIUM POLY SULF 15 GM/60 ML BOTTLE PR ONE (13:15)
--- NOTE | 2017-01-25 13:32 | HOSPPROG ---
Hospitalist Progress Note Assessment/Plan: DIAGNOSES: # S/P PEA CARDIAC ARREST, LIKELY CAUSED BY ANEMIA AND ACUTE RESPIRATORY INSUFFICIENCY # SPONTANEOUS RETROPERITONEAL BLEED ON ANTICOAG / POST HEMORRHAGIC ANEMIA, S/P TRANSFUSION # ACUTE RESP FAILURE, REINTUBATION #2 # ACUTE METABOLIC ACIDOSIS # ACUTE RENAL FAILURE # A FIB, RAPID V RATE - WILL NEED TO BE OFF ANTICOAG DUE TO HEMORRHAGE # LLL PNEUMONIA, STENOTROPHOMONAS IN SPUTUM # BACTEROIDES BACTEREMIA, LIKELY ABD SOURCE # ACUTE ENCEPHALOPATHY # S/P LAPAROSCOPIC SURGERY FOR DIVERTICULAR DISEASE; S/P INTRAABDOMINAL HEMORRAGE AND SURGICAL EXPLORATION/CLOT EVACUATION This morning she is stable from the standpoint of good cardiac rhythm and maintaining adequate blood pressure though on pressors, And neurologically she is following commands. Her renal function is stable and there is no current sign of ongoing bleeding. Her diaphragms order notably elevated on the x-rays from this morning. This could potentially be from abdominal distention but may also be potentially related to neurologic or muscular diaphragmatic weakness. This may create challenges for trying to extubate her. I examined the patient today at the bedside together with Dr. Bandar Arevalo and Sterling. Together we reviewed the patient's clinical progress in treatments with her family and answered their questions. Patient also seen on interdisciplinary rounds Total bedside time today greater than 75 minutes during multiple visits PLANS: -Continue supportive care with mechanical ventilation, IV pressors, fluids as needed -Receiving FFP to reverse anticoagulation and coagulopathy at this point; follow blood counts very closely -Continue empiric antibiotics at this point -Follow renal function closely -continue rate control - continue therapies -Mechanical DVT prophylaxis -TPN SUBJECTIVE: patient suffered PE a cardiac arrest last night. This sounds like probably it started as a respiratory issue as she was having significant respiratory distress followed by bradycardia leading eventually to PA arrest. She was resuscitated with standard measures and did get good return of cardiac function with atrial fibrillation rhythm. She does have return of neurologic function and is following commands. She is requiring IV pressor support at this point. Currently sedated on vent, unable to really assess symptoms OBJECTIVE Vitals reviewed: blood pressures with a mean arterial pressure in the mid 60s on pressor support atrial fibrillation, no fever Cow Washer, my review: currently AFib respirations per ventilator, with good pressures in compliance, adequate oxygenation, ET tube appears in good position and secured Exam: Sedated on vent skin slightly cool, pale resps prevent lungs diminished with few rhonchi heart irregular abd distended, somewhat firm unable to assess tenderness central venous lines look okay Objective: Vital Signs Temp Pulse Resp BP Pulse Ox 36.0 C 95 29 H 95/38 L 100 01/25/17 12:00 01/25/17 12:00 01/25/17 12:00 01/25/17 12:00 01/25/17 12:00 Laboratory Results 01/25/17 06:00 01/25/17 Unknown 01/24/17 01/25/17 01/26/17 06:59 06:59 06:59 Intake Total 1489 8748.9 837 Output Total 3450 1307 Balance -1961 7441.9 837 PT 25.1 SEC (12.0-15.0) H 01/25/17 10:20 INR 2.25 (0.83-1.16) H 01/25/17 10:20 ICD10 Worksheet Patient Problems: Problems Problem Status Onset Atrial fibrillation Acute Diverticulitis Acute
[2017-01-25 15:20] LABS: BICARBONATE 16 mEq/L (22-26); MEASURED OXYGEN SATURATION 95 % (92-95); O2 CONCENTRATIION 40 % (0-100); P/F RATIO 203 RATIO; PCO2 29 mmHg (34-38); PO2 81 mmHg (65-75); TCO2 17 mEq/L (23-27)
[2017-01-25 15:21] LABS: END TIDAL CO2 24; PATIENT RATE 29; PRESSURE SUPPORT 7
[2017-01-25 16:56] LABS: INR 2.07 (0.83-1.16); PROTIME(PATIENT) 23.4 SEC (12.0-15.0)
[2017-01-25 16:57] LABS: APTT 38.9 SEC (23.0-38.0)
[2017-01-25] MEDS: PIPERACILLIN/TAZO 2.25 GM/DEX 50 ML IV SCH (17:41)
--- NOTE | 2017-01-25 17:51 | PCMIDPN ---
Assessment/Plan: Assessment: sepsis due to peritonitis from sigmoid colon rupture due to diverticulitis. Was previously extubated and improving when she developed spontaneous retroperitoneal hemorrhage and acute blood loss anemia - resulting in PEA arrest and shock liver as well as ARF. Will adjust zosyn dose downward to compensate for loss of kidney function. Very guarded prognosis. Discussed at length with son. Plan: 1) Continue Zosyn but at reduced dose. 2) Follow clinical course. Subjective: Patient now reintubated and sedated. Significant decline in status since yesterday AM with large retroperitoneal bleed. Replacing lost/consumed factors and blood products and apparently HD stable at the moment. Objective: Zosyn #16 Vital Signs Temp Pulse Resp BP Pulse Ox 36.7 C 93 32 H 149/97 H 98 01/25/17 16:00 01/25/17 17:48 01/25/17 17:48 01/25/17 17:48 01/25/17 17:48 Laboratory Results 01/25/17 06:00 01/25/17 Unknown 01/24/17 01/25/17 01/26/17 05:59 05:59 05:59 Intake Total 1489 8748.9 4123 Output Total 3750 1307 534 Balance -2261 7441.9 3589 - Physical Exam General Appearance: WD/WN, other (intubated and sedated) Respiratory: lungs clear, normal breath sounds, No respiratory distress Cardiac/Chest: regular rate, rhythm, No tachycardia Extremities: non-tender, normal inspection Abdomen: distended Skin: normal color, warm/dry, No rash ICD10 Worksheet Patient Problems: Problems Problem Status Onset Atrial fibrillation Acute Diverticulitis Acute
[2017-01-25 18:11] LABS: ANION GAP 20 mEq/L (8-16); CALCIUM 7.1 mg/dL (8.5-10.4); CARBON DIOXIDE 20 mEq/l (22-31); CHLORIDE 95 mEq/L (97-110); CREATININE 2.7 mg/dL (0.6-1.0); GLOMERULAR FILTRATION RATE 17; GLUCOSE 155 mg/dL (70-100); POTASSIUM 5.2 mEq/L (3.5-5.2); SODIUM 135 mEq/L (134-144)
--- NOTE | 2017-01-25 18:41 | SOAPPROG ---
SOAP Progress Note Assessment/Plan: Assessment/Plan: NANCY: Pt likely has developed ATN in setting of large retroperitoneal bleed with significant drop in Hgb as well as cardiac arrest, now oliguric with Cr up to 2.7. - No emergent need for HD tonight. - Expect that pt will likely need HD tomorrow, would place line in am unless her Cr drastically improves. - Continue bicarb ggt to help with acidosis and hyperkalemia. - Will continue to monitor closely, will check RFP q8h for now. - Avoid nephrotoxins. Hyperkalemia: improved with kayexalate to 5.2, continue bicarb ggt. Will continue to monitor as above. Acidosis: lactic acidosis after cardiac arrest along with acidosis from renal failure, currently pH ok. Pt on bicarb ggt. Anemia: pt with large spontaneous retroperitoneal bleed, has gotten several units of FFP as well as PRBCs. Will continue to monitor H/H q8h. Thank you for the interesting consult. nephrology will continue to follow, please call if you have any additional questions or concerns. Subjective: Ms. Cabral is a 72 yo F who presented last month s/p elective hemicolectomy with an anastomotic leak who has been in the hospital since that time. She had NANCY earlier on that was likely due to ATN, Cr peaked aroun 3.0 and then improved without needing HD, came down to 1.0 and we signed off. Called back for worsening NANCY again today. In interim, pt had afib and was placed on amiodarone and Lovenox. Yesterday, her Hgb suddenly dropped down to 5, found to have a large spontaneous retroperitoneal bleed. She was being transfused, developed respiratory distress overnight and had a cardiac arrest. She was intubated and now is on two pressors. She has had only 9ml UOP since code, prior to that had been having good UOP. Her Cr was 1.2 yesterday am, now is up to 2.7 this evening. She was hyperkalemic during code that improved with kayexalate, then K increased again to 5.9 this afternoon. She got under my direction more kayexalate and has also been started on a bicarb ggt, K down to 5.2 now. Objective: Vital Signs Temp Pulse Resp BP Pulse Ox 36.7 C 93 32 H 149/97 H 98 01/25/17 16:00 01/25/17 17:48 01/25/17 17:48 01/25/17 17:48 01/25/17 17:48 Laboratory Results 01/25/17 06:00 01/25/17 Unknown 01/24/17 01/25/17 01/26/17 05:59 05:59 05:59 Intake Total 1489 8748.9 4123 Output Total 3750 1307 534 Balance -2261 7441.9 3589 PT 23.4 SEC (12.0-15.0) H 01/25/17 16:25 INR 2.07 (0.83-1.16) H 01/25/17 16:25 General: sedated, no acute distress Eyes; EOMI, PERRL OP: intubated CV: RRR Resp: intubated and on vent Abd: Soft, ND Ext: no edema BLE ICD10 Worksheet Patient Problems: Problems Problem Status Onset Atrial fibrillation Acute Diverticulitis Acute
[2017-01-25 19:53] LABS: HEMATOCRIT 14.9 % (38.0-47.0)
[2017-01-25 20:19] LABS: HEMOGLOBIN 5.3 g/dL (12.6-16.3)
[2017-01-25 20:21] LABS: ALBUMIN 3.2 g/dL (3.5-5.0); ANION GAP 18 mEq/L (8-16); CALCIUM 6.9 mg/dL (8.5-10.4); CARBON DIOXIDE 22 mEq/l (22-31); CHLORIDE 94 mEq/L (97-110); CREATININE 2.6 mg/dL (0.6-1.0); GLOMERULAR FILTRATION RATE 18; GLUCOSE 138 mg/dL (70-100); POTASSIUM 5.3 mEq/L (3.5-5.2); SODIUM 134 mEq/L (134-144)
[2017-01-25] MEDS ORDERED: MELATONIN 3 MG TAB TUBE SCH (21:00)
[2017-01-25 21:11] LABS: PLATELET COUNT 119 10^3/uL (150-400)
[2017-01-25 21:41] LABS: INR 2.13 (0.83-1.16)
[2017-01-25] MEDS: CETIRIZINE 10 MG TAB TUBE SCH (21:41)
[2017-01-25 21:42] LABS: APTT 37.6 SEC (23.0-38.0); FIBRINOGEN 267 mg/dL (214-456)
--- NOTE | 2017-01-25 23:35 | SOAPPROG ---
Downtime Inpatient Late Entry SOAP Note: I was contacted by the patient's ICU nurse, Gris, that her Hgb/Hct had dropped to 5.3/14.[address] Katz had ordered additional PRBC/FFP and asked that I be notified. Her blood pressure remains stable, but she is requiring ongoing use of pressors. She has become anuric and renal plans on starting dialysis in the morning. I would recommend angiography/embolization if her bleeding does not stop. Flakita Weeks MD, FACS
[2017-01-26] MEDS: PIPERACILLIN/TAZO 2.25 GM/DEX 50 ML IV SCH ×4 (00:52→18:45)
[2017-01-26] MEDS: LORazepam 2 MG/ML INJ IVP PRN (01:49)
[2017-01-26] MEDS: SODIUM BICARBONATE 150 MEQ in D5W 1,000 ML IV SCH (03:36)
[2017-01-26 05:16] LABS: PCO2 38 mmHg (34-38); TCO2 25 mEq/L (23-27)
[2017-01-26 05:19] LABS: BASE EXCESS -0.2 mEq/L (-2.5-2.5); BICARBONATE 24 mEq/L (22-26); MEASURED OXYGEN SATURATION 69 % (92-95)
[2017-01-26 05:20] LABS: CPAP YES; O2 CONCENTRATIION 40 % (0-100); P/F RATIO 95 RATIO; PO2 38 mmHg (65-75)
[2017-01-26 05:21] LABS: END TIDAL CO2 35; PATIENT RATE 35; PRESSURE SUPPORT 7
[2017-01-26] MEDS: PROPOFOL/EMULSION 100 ML IV SCH ×2 (05:30→12:28)
[2017-01-26 06:08] LABS: % IMMATURE GRANULYOCYTES 1.1 % (0.0-1.1); ABSOLUTE IMMATURE GRANULOCYTES 0.19 10^3/uL (0.00-0.10); ADD DIFF? NO; ADD MORPH? YES; ADD SCAN? NO; ATYPICAL LYMPHOCYTE FLAG 0 (0-99); FRAGMENT RBC FLAG 0 (0-99); LEFT SHIFT FLG 30 (0-99); LIPEMIA HEMOLYSIS FLAG 90 (0-99); MEAN CELL HEMOGLOBIN 31.2 pg (27.9-34.1); MEAN CELL HEMOGLOBIN CONCENTR. 36.4 g/dL (32.4-36.7); MEAN CELL VOLUME 85.9 fL (81.5-99.8); MEAN PLATELET VOLUME 10.1 fL (8.7-11.7); NRBC-AUTO% 0.6 % (0.0-0.2); PLATELET CLUMPS FLAG 20 (0-99); PLATELET COUNT 89 10^3/uL (150-400); RED BLOOD CELL COUNT 2.05 10^6/uL (4.18-5.33)
[2017-01-26 06:09] LABS: HEMOGLOBIN 6.4 g/dL (12.6-16.3)
[2017-01-26 06:10] LABS: HEMATOCRIT 17.6 % (38.0-47.0); INR 1.8 (0.83-1.16)
[2017-01-26 06:35] LABS: MICROCYTES 1+; POLYCHROMASIA 1+
[2017-01-26 06:36] LABS: HYPOCHROMIA 2+; PLATELET ESTIMATE DECREASED (ADEQ)
--- NOTE | 2017-01-26 06:54 | SOAPPROG ---
SOAP Progress Note Assessment/Plan: Assessment:ongoing hemorrhage/secondary coagulopathy c/w DIC Plan: Massive transfusion protocol Angio +/- embolization discussed with patients and RFID ENGINEER Gris Weeks MD, FACS 01/26/17 06:51 01/26/17 06:54 Objective: Vital Signs Temp Pulse Resp BP Pulse Ox 38.0 C 90 22 H 179/59 H 97 01/26/17 03:56 01/26/17 06:00 01/26/17 06:00 01/26/17 06:00 01/26/17 06:00 Laboratory Results 01/26/17 05:45 01/25/17 Unknown 01/25/17 01/26/17 01/27/17 05:59 05:59 05:59 Intake Total 8748.9 8839 Output Total 1307 692 250 Balance 7441.9 8147 -250 PT 21.0 SEC (12.0-15.0) H 01/26/17 05:45 INR 1.80 (0.83-1.16) H 01/26/17 05:45 Physical Exam - Physical Exam General Appearance: other (intubated/sedated) Abdomen: distended, other (R sided abdominal mass/fullness c/w hematoma) ICD10 Worksheet Patient Problems: Problems Problem Status Onset Atrial fibrillation Acute Diverticulitis Acute
[2017-01-26] MEDS ORDERED: HEPARIN 10,000 UNIT/10 ML MDV ONE (07:48)
[2017-01-26] MEDS ORDERED: IOPAMIDOL (ISOVUE-300) 100 ML BTL IV ONE ×2 (07:48→10:49)
[2017-01-26] MEDS ORDERED: HEPARIN 50,000 UNIT/10 ML VIAL ONE (07:48)
[2017-01-26] MEDS: ALBUTEROL 200 PUFFS/18 GM MDI IH SCH ×4 (07:59→19:49)
--- NOTE | 2017-01-26 08:12 | PDINTPN ---
Stay Cutter Progress Note Assessment/Plan: Assessment/plan : * Peritonitis following sigmoid resection complicated by anastamotic leak. Blood cultures are currently growing a GNR, and she is being treated with ertapenem. -antibiotics per Infectious Disease * Retroperitoneal bleed-status post aggressive transfusion. Continues to have ongoing bleeding requiring aggressive transfusion. -will follow hemoglobin hematocrit closely and transfuse appropriately -To interventional Radiology this am for embolization * Status post cor-thought this was a bradycardia which led to a PEA arrest. This was likely respiratory to begin with. -patient currently following commands * Shock-on minimal pressors * Metabolic acidosis * Coagulopathy-likely DIC * Afib with RVR. She was initially treated with amiodarone, followed by a brief trial of esmolol (dropped BP). She got one dose of Digoxin on 01/08, but worsening renal function makes that a less desirable choice. Diltiazem was added 01/09, and rate is now well controlled with a combination of oral amio, metoprolol (increased to 25 TID). Off Cardizem. Remains in normal sinus rhythm. Echo unremarkable as were serial troponins. On full-dose anticoagulation with Lovenox. * Respiratory failure with hypoxemia: Re intubated during code. Currently stable on mechanical ventilation. FiO2 is at 60%. -no changes for now * Pneumonia: LLL. She was unable to handle the secretions, likely were building up over several days. Re-intubated and bronchoscopy was done with removal of secretions. Extubated as above and doing well, without evidence of recurrent secretions. PsA in sputum previously. Did not grow from the latest bronchoscopy. Bactrim stopped after 5 days. 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 Aneuric -per Nephrology. Will likely need dialysis. Dialysis catheter placed in IR * Transaminitis - resolved. * Anemia- hemoglobin and hematocrit remain low. . * Nutrition: Nasogastric tube pulled yesterday. Is able to take p.o. does. Calorie count in progress. 45 minutes of critical care time spent with patient Case discussed with family, nursing, RT and Cardiology. Subjective: Sedated on mechanical ventilation Objective: Vital Signs Temp Pulse Resp BP Pulse Ox 38.3 C H 101 H 36 H 128/49 H 100 01/26/17 07:00 01/26/17 07:00 01/26/17 07:00 01/26/17 07:00 01/26/17 07:00 Laboratory Results 01/26/17 05:45 01/25/17 Unknown 01/25/17 01/26/17 01/27/17 05:59 05:59 05:59 Intake Total 8748.9 8839 Output Total 1307 692 250 Balance 7441.9 8147 -250 PT 21.0 SEC (12.0-15.0) H 01/26/17 05:45 INR 1.80 (0.83-1.16) H 01/26/17 05:45 - Time Spent With Patient Time Spent With Patient: 45 minutes Physical Exam - Physical Exam General Appearance: No alert (Sedated) EENT: ET tube Neck: non-tender, full range of motion, supple Respiratory: crackles (Few basilar), No respiratory distress, No stridor, No wheezing Cardiac/Chest: normal peripheral pulses, regular rate, rhythm, systolic murmur Abdomen: distended, No non-tender Pelvic Exam: deferred Rectal: deferred Skin: normal color, warm/dry Extremities: normal inspection Neuro/Psych: No alert (Sedated) ICD10 Worksheet Patient Problems: Problems Problem Status Onset Atrial fibrillation Acute Diverticulitis Acute
[2017-01-26] MEDS: CHLORHEXIDINE GLUCONATE 15 ML UDL PO SCH ×2 (08:15→20:28)
[2017-01-26] MEDS ORDERED: fentaNYL 100 MCG/2 ML INJ ONE (08:40)
[2017-01-26 09:13] LABS: % IMMATURE GRANULYOCYTES 1.1 % (0.0-1.1); ABSOLUTE IMMATURE GRANULOCYTES 0.19 10^3/uL (0.00-0.10); ABSOLUTE NRBC COUNT 0.11 10^3/uL (0-0.01); ADD DIFF? NO; ADD MORPH? NO; ADD SCAN? NO; ATYPICAL LYMPHOCYTE FLAG 0 (0-99); FRAGMENT RBC FLAG 0 (0-99); HEMATOCRIT 20.1 % (38.0-47.0); HEMOGLOBIN 7.4 g/dL (12.6-16.3); LEFT SHIFT FLG 20 (0-99); LIPEMIA HEMOLYSIS FLAG 90 (0-99); MEAN CELL HEMOGLOBIN 31.6 pg (27.9-34.1); MEAN CELL HEMOGLOBIN CONCENTR. 36.8 g/dL (32.4-36.7); MEAN CELL VOLUME 85.9 fL (81.5-99.8); MEAN PLATELET VOLUME 10.1 fL (8.7-11.7); NRBC-AUTO% 0.6 % (0.0-0.2); PLATELET CLUMPS FLAG 0 (0-99); PLATELET COUNT 125 10^3/uL (150-400); RED BLOOD CELL COUNT 2.34 10^6/uL (4.18-5.33); RED CELL DISTRIBUTION WIDTH 14.7 % (11.5-15.2)
[2017-01-26] MEDS ORDERED: PROTOCOL CALCIUM 1 DOSE IV PRN (09:22)
[2017-01-26] MEDS ORDERED: CALCIUM GLUCONATE 2 GM in NS 50 ML IV ONE (09:23)
[2017-01-26 09:39] LABS: ALBUMIN 3.3 g/dL (3.5-5.0); ALKALINE PHOSPHATASE 223 IU/L (38-126); ANION GAP 18 mEq/L (8-16); BILIRUBIN,TOTAL 5.7 mg/dL (0.1-1.4); CALCIUM 6.1 mg/dL (8.5-10.4); CARBON DIOXIDE 25 mEq/l (22-31); CHLORIDE 92 mEq/L (97-110); CREATININE 2.9 mg/dL (0.6-1.0); GLOMERULAR FILTRATION RATE 16; GLUCOSE 117 mg/dL (70-100); POTASSIUM 5.2 mEq/L (3.5-5.2); SODIUM 135 mEq/L (134-144); TOTAL PROTEIN 5.7 g/dL (6.3-8.2)
[2017-01-26 09:54] LABS: BILIRUBIN-CONJUGATED 3.7 mg/dL (0.0-0.5)
--- NOTE | 2017-01-26 10:14 | SOAPPROG ---
SOAP Progress Note Assessment/Plan: Assessment: Retroperitoneal hematoma, s/p embolization. Plan for HD today, cont transfusion. D/w patient's family at length, questions answered. Plan: 01/26/17 10:12 Subjective: Cont drop in H&H, BP overnight Objective: Vital Signs Temp Pulse Resp BP Pulse Ox 38.3 C H 101 H 36 H 128/49 H 100 01/26/17 08:00 01/26/17 07:00 01/26/17 07:00 01/26/17 07:00 01/26/17 07:00 Laboratory Results 01/26/17 08:57 01/26/17 08:57 01/25/17 01/26/17 01/27/17 05:59 05:59 05:59 Intake Total 8748.9 8839 Output Total 1307 692 250 Balance 7441.9 8147 -250 PT 21.0 SEC (12.0-15.0) H 01/26/17 05:45 INR 1.80 (0.83-1.16) H 01/26/17 05:45 Intubated Abd distended Inc C/D/I Ostomy pink ICD10 Worksheet Patient Problems: Problems Problem Status Onset Atrial fibrillation Acute Diverticulitis Acute - ICD10 Problem Qualifiers (1) Diverticulitis Qualifiers: Diverticulitis site: D Diverticulitis bleeding: D Diverticulitis complication: D
[2017-01-26 10:25] LABS: ALANINE AMINOTRANSFERASE 4272 IU/L (9-52); ASPARTATE AMINOTRANSFERASE 7261 IU/L (14-46)
--- NOTE | 2017-01-26 10:25 | HOSPPROG ---
Hospitalist Progress Note Assessment/Plan: DIAGNOSES: # S/P PEA CARDIAC ARREST, LIKELY CAUSED BY ANEMIA AND ACUTE RESPIRATORY INSUFFICIENCY # SPONTANEOUS RETROPERITONEAL BLEED ON ANTICOAG / POST HEMORRHAGIC ANEMIA, S/P TRANSFUSION # ACUTE RESP FAILURE, REINTUBATION #2 # ACUTE METABOLIC ACIDOSIS # ACUTE RENAL FAILURE # A FIB, RAPID V RATE - WILL NEED TO BE OFF ANTICOAG DUE TO HEMORRHAGE # LLL PNEUMONIA, STENOTROPHOMONAS IN SPUTUM # BACTEROIDES BACTEREMIA, LIKELY ABD SOURCE # ACUTE ENCEPHALOPATHY # S/P LAPAROSCOPIC SURGERY FOR DIVERTICULAR DISEASE; S/P INTRAABDOMINAL HEMORRAGE AND SURGICAL EXPLORATION/CLOT EVACUATION This morning she is stable from the standpoint of good cardiac rhythm and maintaining adequate blood pressure though on pressors, And neurologically she is following commands. Her renal function is stable and there is no current sign of ongoing bleeding. Her diaphragms order notably elevated on the x-rays from this morning. This could potentially be from abdominal distention but may also be potentially related to neurologic or muscular diaphragmatic weakness. This may create challenges for trying to extubate her. I examined the patient today at the bedside together with Dr. Bandar Arevalo and Sterling. Together we reviewed the patient's clinical progress in treatments with her family and answered their questions. Patient also seen on interdisciplinary rounds Total bedside time today greater than 75 minutes during multiple visits PLANS: -Continue supportive care with mechanical ventilation, IV pressors, fluids as needed -Receiving FFP to reverse anticoagulation and coagulopathy at this point; follow blood counts very closely -Continue empiric antibiotics at this point -Follow renal function closely -continue rate control - continue therapies -Mechanical DVT prophylaxis -TPN SUBJECTIVE: patient suffered PE a cardiac arrest last night. This sounds like probably it started as a respiratory issue as she was having significant respiratory distress followed by bradycardia leading eventually to PA arrest. She was resuscitated with standard measures and did get good return of cardiac function with atrial fibrillation rhythm. She does have return of neurologic function and is following commands. She is requiring IV pressor support at this point. Currently sedated on vent, unable to really assess symptoms OBJECTIVE Vitals reviewed: blood pressures with a mean arterial pressure in the mid 60s on pressor support atrial fibrillation, no fever Victim Witness Administrator, my review: currently AFib respirations per ventilator, with good pressures in compliance, adequate oxygenation, ET tube appears in good position and secured Exam: Sedated on vent skin slightly cool, pale resps prevent lungs diminished with few rhonchi heart irregular abd distended, somewhat firm unable to assess tenderness central venous lines look okay Objective: Vital Signs Temp Pulse Resp BP Pulse Ox 38.3 C H 101 H 36 H 128/49 H 100 01/26/17 08:00 01/26/17 07:00 01/26/17 07:00 01/26/17 07:00 01/26/17 07:00 Laboratory Results 01/26/17 08:57 01/26/17 08:57 01/25/17 01/26/17 01/27/17 06:59 06:59 06:59 Intake Total 8748.9 8839 Output Total 1307 942 Balance 7441.9 7897 PT 21.0 SEC (12.0-15.0) H 01/26/17 05:45 INR 1.80 (0.83-1.16) H 01/26/17 05:45 ICD10 Worksheet Patient Problems: Problems Problem Status Onset Atrial fibrillation Acute Diverticulitis Acute
[2017-01-26 10:31] LABS: PCO2 37 mmHg (34-38); PO2 218 mmHg (65-75); TCO2 25 mEq/L (23-27)
[2017-01-26 10:32] LABS: BASE EXCESS 0.3 mEq/L (-2.5-2.5); BICARBONATE 24 mEq/L (22-26); MEASURED OXYGEN SATURATION 100 % (92-95)
[2017-01-26] MEDS ORDERED: PRE-DILUTION FILTER SET 100 ****SEND #2 INITIALLY MISC PRN (11:00)
--- NOTE | 2017-01-26 11:40 | HOSPPROG ---
Hospitalist Progress Note Assessment/Plan: DIAGNOSES: # S/P PEA CARDIAC ARREST, LIKELY CAUSED BY ANEMIA AND ACUTE RESPIRATORY INSUFFICIENCY # SPONTANEOUS RETROPERITONEAL BLEED ON ANTICOAG / POST HEMORRHAGIC ANEMIA, S/P TRANSFUSION # ACUTE RESP FAILURE, REINTUBATION #2 # ACUTE METABOLIC ACIDOSIS # ACUTE RENAL FAILURE # ACUTE ANOXIC HEPATIC INJURY # COAGULOPATHY LIKELY MULTIFACTORIAL WITH ANOXIC HEPATIC INJURY, SEPSIS AND OTHER FACTORS # A FIB, RAPID V RATE - WILL NEED TO BE OFF ANTICOAG DUE TO HEMORRHAGE # LLL PNEUMONIA, STENOTROPHOMONAS IN SPUTUM # BACTEROIDES BACTEREMIA, LIKELY ABD SOURCE # ACUTE ENCEPHALOPATHY # S/P LAPAROSCOPIC SURGERY FOR DIVERTICULAR DISEASE; S/P INTRAABDOMINAL HEMORRAGE AND SURGICAL EXPLORATION/CLOT EVACUATION Overall since yesterday she has continued to have bleeding which hopefully will be stopped after her embolization procedure in IR. She has also developed significant acute renal failure with oliguria. There is evidence of acute anoxic hepatic injury as well. There is coagulopathy probably largely related to this which is probably aggravating the bleeding problems. Her blood pressures have remained stable. She is in critical illness with multiple support systems in place including mechanical ventilator and pressors. PLANS: -Continue supportive care with mechanical ventilation, IV pressors, fluids as needed -follow for any further signs of bleeding, transfusion support as necessary -Continue empiric antibiotics at this point -she is having dialysis catheter placed and will start CRRT -Follow renal function closely -continue rate control -continue therapiesAs able -Mechanical DVT prophylaxis -TPN seen on multidisc rounds case reviewed in detail with Dr Katz SUBJECTIVE: remain sedated on ventilator so no symptom assessment available She continued to have significant bleeding in the retroperitoneal space during the night requiring ongoing transfusions with red cells and FFP. This morning she went to the interventional radiology suite where 3 bleeding vessels were identified and treated with embolization. OBJECTIVE Vitals reviewed: Tachypnea and fever present, blood pressure is good, mild tachycardia with AFib Mortuary Technician, my review: currently AFib respirations per ventilator, with good pressures in compliance, adequate oxygenation, ET tube appears in good position and secured Exam: Sedated on vent skin slightly cool, pale resps prevent lungs diminished with few rhonchi heart irregular abd distended, somewhat firm unable to assess tenderness central venous lines look okay Objective: Vital Signs Temp Pulse Resp BP Pulse Ox 38.3 C H 105 H 36 H 128/49 H 100 01/26/17 08:00 01/26/17 07:55 01/26/17 07:00 01/26/17 07:00 01/26/17 07:55 Laboratory Results 01/26/17 08:57 01/26/17 08:57 01/25/17 01/26/17 01/27/17 06:59 06:59 06:59 Intake Total 8748.9 8839 Output Total 1307 942 Balance 7441.9 7897 PT 21.0 SEC (12.0-15.0) H 01/26/17 05:45 INR 1.80 (0.83-1.16) H 01/26/17 05:45 ICD10 Worksheet Patient Problems: Problems Problem Status Onset Atrial fibrillation Acute Diverticulitis Acute
--- NOTE | 2017-01-26 12:07 | SOAPPROG ---
SOAP Progress Note Assessment/Plan: Assessment: 1. Oliguric NANCY Pt pressor dependent, has oliguric NANCY. Acidosis treated with bicarb drip. Will initiate CRRT. Given DIC, LFT's, and coags, will try CVVHD without citrate first. 2. Alkalosis/ionized calcium Will stop bicarb drip for now. Recheck labs and replace calcium as needed. 3. RP bleed This appears to have been rectified 4. Shock Liver 5. Intubated, sedated Plan: 01/26/17 12:03 Subjective: Status improving Objective: Vital Signs Temp Pulse Resp BP Pulse Ox 38.3 C H 105 H 36 H 128/49 H 100 01/26/17 08:00 01/26/17 07:55 01/26/17 07:00 01/26/17 07:00 01/26/17 07:55 Laboratory Results 01/26/17 08:57 01/26/17 08:57 01/25/17 01/26/17 01/27/17 05:59 05:59 05:59 Intake Total 8748.9 8839 Output Total 1307 692 250 Balance 7441.9 8147 -250 PT 21.0 SEC (12.0-15.0) H 01/26/17 05:45 INR 1.80 (0.83-1.16) H 01/26/17 05:45 Physical Exam - Physical Exam General Appearance: other (sedated) EENT: ET tube Neck: other (HD cath site ok) Respiratory: lungs clear Cardiac/Chest: tachycardia Abdomen: soft, other (I heard bowel sounds) Extremities: pedal edema ICD10 Worksheet Patient Problems: Problems Problem Status Onset Atrial fibrillation Acute Diverticulitis Acute
[2017-01-26] MEDS: METOPROLOL TARTRATE 25 MG TAB TUBE SCH ×2 (12:17→21:06)
[2017-01-26] MEDS: AMIODARONE HCL 200 MG TAB TUBE SCH (12:17)
[2017-01-26 12:21] LABS: IONIZED CALCIUM 0.85 MMOL/L (1.12-1.30)
[2017-01-26] MEDS: PANTOPRAZOLE SODIUM 40 MG in NS 100 ML IV SCH (12:28)
[2017-01-26 12:42] LABS: ALBUMIN 3.3 g/dL (3.5-5.0); ALKALINE PHOSPHATASE 230 IU/L (38-126); ANION GAP 16 mEq/L (8-16); BILIRUBIN,TOTAL 5.8 mg/dL (0.1-1.4); CALCIUM 6.5 mg/dL (8.5-10.4); CARBON DIOXIDE 27 mEq/l (22-31); CHLORIDE 92 mEq/L (97-110); CREATININE 3.2 mg/dL (0.6-1.0); GLOMERULAR FILTRATION RATE 14; GLUCOSE 94 mg/dL (70-100); POTASSIUM 4.9 mEq/L (3.5-5.2); SODIUM 135 mEq/L (134-144); TOTAL PROTEIN 5.9 g/dL (6.3-8.2)
[2017-01-26] MEDS: NS 1,000 ML MISC SCH ×2 (12:50→22:00)
[2017-01-26] MEDS: BGK 4/2.5 PRISMASATE 5,000 ML DIAL SCH ×9 (12:51→23:43)
[2017-01-26 12:59] LABS: BILIRUBIN-UNCONJUGATED 1.8 mg/dL (0.0-1.1)
[2017-01-26 13:06] LABS: ALANINE AMINOTRANSFERASE 4150 IU/L (9-52); ASPARTATE AMINOTRANSFERASE 7029 IU/L (14-46)
--- NOTE | 2017-01-26 13:22 | PCMIDPN ---
Assessment/Plan: Assessment/Plan: 1. Sepsis with Peritonitis secondary to anastomotic leak with bacteremia: - Recent events noted. PEA arrest, shock liver, ARF, - New fevers today. infectious vs non-infectious related. -Currently on Zosyn-renally dosed. -recent Ct abd with large retroperitoneal bleed noted. Went for embolization earlier today -f/u blood cx from 01/15 with ngtd. new blood cx drawn yesterday pending - recheck c. diff. - overall wbc improved today. -reviewed labs and updated , family today. -care coordinated with RN 2. Possible HAP with stenotrophomonas: -s/p bactrim 3. Coag neg staph bacteremia: - in one set out of two. did have a central line at the time for which one set was supposed to be drawn from. -not on directive therapy at present given possible contaminant. -f/u blood cx without growth. Meds zosyn Subjective: Remains in icu. Intubated now, sedated. To start on CRRT shortly. febrile this Am. On pressors. Off bicarb drip now. Objective: Vital Signs Temp Pulse Resp BP Pulse Ox 38.3 C H 100 36 H 128/49 H 100 01/26/17 08:00 01/26/17 12:10 01/26/17 07:00 01/26/17 07:00 01/26/17 12:10 Laboratory Results 01/26/17 08:57 01/26/17 12:15 01/25/17 01/26/17 01/27/17 05:59 05:59 05:59 Intake Total 8748.9 8839 Output Total 1307 692 250 Balance 7441.9 8147 -250 - Physical Exam General Appearance: other (sedated, intubated in icu) EENT: ET Tube Respiratory: coarse breath sounds (mild anteriorly) Cardiac/Chest: regular rate, rhythm Extremities: other (right picc), No swelling Abdomen: normal bowel sounds, distended, other (softer on left side, more distended and firm abd on left. colostomy.mild serous oozing from midline site. ) Skin: No rash ICD10 Worksheet Patient Problems: Problems Problem Status Onset Atrial fibrillation Acute Diverticulitis Acute
[2017-01-26] MEDS: GABAPENTIN 100 MG CAP TUBE SCH (13:56)
[2017-01-26] MEDS ORDERED: CALCIUM GLUCONATE 2 GM in D5W 50 ML IV ONE (15:00)
[2017-01-26 15:01] LABS: HEMATOCRIT 23.7 % (38.0-47.0); HEMOGLOBIN 8.4 g/dL (12.6-16.3); MEAN CELL HEMOGLOBIN 30.4 pg (27.9-34.1); MEAN CELL HEMOGLOBIN CONCENTR. 35.4 g/dL (32.4-36.7); MEAN CELL VOLUME 85.9 fL (81.5-99.8); RED BLOOD CELL COUNT 2.76 10^6/uL (4.18-5.33); RED CELL DISTRIBUTION WIDTH 15.2 % (11.5-15.2)
[2017-01-26] MEDS ORDERED: AMIODARONE TACHY-6HR INFSN (ORDER 2/3) IV ONE (16:30)
[2017-01-26] MEDS ORDERED: AMIODARONE TACHY-LOAD DOSE(ORDER 1/3) IV ONE (16:30)
[2017-01-26 17:19] LABS: IONIZED CALCIUM 0.94 MMOL/L (1.12-1.30)
[2017-01-26 17:33] LABS: ANION GAP 14 mEq/L (8-16); CALCIUM 7.1 mg/dL (8.5-10.4); CARBON DIOXIDE 26 mEq/l (22-31); CHLORIDE 96 mEq/L (97-110); CREATININE 2.6 mg/dL (0.6-1.0); GLOMERULAR FILTRATION RATE 18; GLUCOSE 93 mg/dL (70-100); POTASSIUM 4.6 mEq/L (3.5-5.2); SODIUM 136 mEq/L (134-144)
[2017-01-26] MEDS: NOREPINEPHRINE BITARTRATE 16 MG in NS 250 ML IV SCH (18:45)
[2017-01-26 20:02] LABS: IONIZED CALCIUM 0.94 MMOL/L (1.12-1.30)
[2017-01-26] MEDS ORDERED: CALCIUM GLUCONATE 50 ML IV ONE (21:00)
[2017-01-26 22:16] LABS: IONIZED CALCIUM 0.97 MMOL/L (1.12-1.30)
[2017-01-26] MEDS ORDERED: AMIODARONE TACHY-18HR INFSN (ORDER 3/3) IV ONE (22:30)
[2017-01-26 22:52] LABS: ANION GAP 15 mEq/L (8-16); CALCIUM 7.3 mg/dL (8.5-10.4); CARBON DIOXIDE 23 mEq/l (22-31); CHLORIDE 97 mEq/L (97-110); GLOMERULAR FILTRATION RATE 24; GLUCOSE 91 mg/dL (70-100); MAGNESIUM 2.1 mg/dL (1.6-2.3); POTASSIUM 4.8 mEq/L (3.5-5.2); SODIUM 135 mEq/L (134-144)
[2017-01-27] MEDS: PIPERACILLIN/TAZO 2.25 GM/DEX 50 ML IV SCH ×5 (00:45→23:28)
[2017-01-27] MEDS: PROPOFOL/EMULSION 100 ML IV SCH ×2 (00:46→08:52)
[2017-01-27 00:49] LABS: HEMATOCRIT 25.5 % (38.0-47.0)
[2017-01-27] MEDS: BGK 4/2.5 PRISMASATE 5,000 ML DIAL SCH ×13 (03:13→23:34)
[2017-01-27 04:20] LABS: BICARBONATE 21 mEq/L (22-26); IONIZED CALCIUM 0.99 MMOL/L (1.12-1.30); MEASURED OXYGEN SATURATION 97 % (92-95); PCO2 34 mmHg (34-38); PO2 89 mmHg (65-75); TCO2 22 mEq/L (23-27)
[2017-01-27 04:21] LABS: ABSOLUTE NRBC COUNT 0.17 10^3/uL (0-0.01); ADD DIFF? YES; ADD MORPH? NO; ADD SCAN? NO; ATYPICAL LYMPHOCYTE FLAG 0 (0-99); FRAGMENT RBC FLAG 0 (0-99); HEMATOCRIT 25.5 % (38.0-47.0); HEMOGLOBIN 9.1 g/dL (12.6-16.3); LEFT SHIFT FLG 40 (0-99); LIPEMIA HEMOLYSIS FLAG 90 (0-99); MEAN CELL HEMOGLOBIN 30.5 pg (27.9-34.1); MEAN CELL HEMOGLOBIN CONCENTR. 35.7 g/dL (32.4-36.7); MEAN CELL VOLUME 85.6 fL (81.5-99.8); MEAN PLATELET VOLUME 10.7 fL (8.7-11.7); NRBC-AUTO% 0.7 % (0.0-0.2); PLATELET CLUMPS FLAG 20 (0-99); PLATELET COUNT 130 10^3/uL (150-400); RED BLOOD CELL COUNT 2.98 10^6/uL (4.18-5.33); RED CELL DISTRIBUTION WIDTH 16.1 % (11.5-15.2)
[2017-01-27 04:23] LABS: O2 CONCENTRATIION 40 % (0-100); P/F RATIO 223 RATIO; PATIENT RATE 27; PRESSURE SUPPORT 7; SIMV YES
[2017-01-27 04:25] LABS: IONIZED CALCIUM 0.99 MMOL/L (1.12-1.30)
[2017-01-27 04:39] LABS: ALBUMIN 3.2 g/dL (3.5-5.0); ALKALINE PHOSPHATASE 311 IU/L (38-126); ANION GAP 13 mEq/L (8-16); BILIRUBIN,TOTAL 6.4 mg/dL (0.1-1.4); CALCIUM 7.3 mg/dL (8.5-10.4); CARBON DIOXIDE 23 mEq/l (22-31); CHLORIDE 101 mEq/L (97-110); CREATININE 1.6 mg/dL (0.6-1.0); GLOMERULAR FILTRATION RATE 32; GLUCOSE 88 mg/dL (70-100); MAGNESIUM 2.1 mg/dL (1.6-2.3); POTASSIUM 4.9 mEq/L (3.5-5.2); SODIUM 137 mEq/L (134-144); TOTAL PROTEIN 6.1 g/dL (6.3-8.2)
[2017-01-27 05:14] LABS: PLATELET ESTIMATE DECREASED (ADEQ); POLYCHROMASIA 1+
[2017-01-27 05:16] LABS: ALANINE AMINOTRANSFERASE 3926 IU/L (9-52); ASPARTATE AMINOTRANSFERASE 4386 IU/L (14-46)
[2017-01-27 05:23] LABS: BILIRUBIN-CONJUGATED 4.7 mg/dL (0.0-0.5); BILIRUBIN-UNCONJUGATED 1.7 mg/dL (0.0-1.1)
[2017-01-27] MEDS: NS 1,000 ML MISC SCH ×6 (06:20→19:50)
[2017-01-27] MEDS: ALBUTEROL 200 PUFFS/18 GM MDI IH SCH ×4 (08:00→19:45)
--- NOTE | 2017-01-27 08:34 | PDINTPN ---
[employer] Dispatcher Progress Note Assessment/Plan: Assessment/plan : * Peritonitis following sigmoid resection complicated by anastamotic leak. Blood cultures are currently growing a GNR, and she is being treated with ertapenem. -antibiotics per Infectious Disease * Retroperitoneal bleed-status post aggressive transfusion. Continues to have ongoing bleeding requiring aggressive transfusion. -will follow hemoglobin hematocrit closely and transfuse appropriately -status post IR embolization * Status post cor-thought this was a bradycardia which led to a PEA arrest. This was likely respiratory to begin with. -patient currently following commands * Shock-on minimal pressors * Metabolic acidosis * Coagulopathy-likely DIC * Afib with RVR-began last evening. Currently on amiodarone. * Respiratory failure with hypoxemia: Re intubated during code. Currently stable on mechanical ventilation. FiO2 is at 40%. -no changes for now * Pneumonia: LLL. She was unable to handle the secretions, likely were building up over several days. Re-intubated and bronchoscopy was done with removal of secretions. Extubated as above and doing well, without evidence of recurrent secretions. PsA in sputum previously. Did not grow from the latest bronchoscopy. Bactrim stopped after 5 days. 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 Aneuric -on CRRT * Transaminitis - markedly elevated, but improved in the last 24 hours * Anemia- hemoglobin and hematocrit are stable post embolization without transfusion. * Nutrition: Nasogastric tube pulled yesterday. Is able to take p.o. does. Calorie count in progress. 40 minutes of critical care time spent with patient Case discussed with family, nursing, RT and Cardiology. Subjective: Sedated but comfortable on mechanical ventilation. Back in atrial fibrillation since last night currently on amiodarone Objective: Vital Signs Temp Pulse Resp BP Pulse Ox 35.1 C L 128 H 28 H 93/56 L 9 L 01/27/17 07:00 01/27/17 07:00 01/27/17 07:00 01/27/17 07:00 01/27/17 07:00 Laboratory Results 01/27/17 04:00 01/27/17 04:00 01/26/17 01/27/17 01/28/17 05:59 05:59 05:59 Intake Total 8839 0 Output Total 692 670 Balance 8147 -670 PT 21.0 SEC (12.0-15.0) H 01/26/17 05:45 INR 1.80 (0.83-1.16) H 01/26/17 05:45 Laboratory Results 01/27/17 04:00 01/27/17 04:00 01/27/17 01/27/17 01/26/17 04:00 04:00 05:45 Hgb Hct PT 21.0 SEC H SEC (12.0 - 15.0) INR 1.80 H (0.83 - 1.16) Patient Temperature 35.1 DEGREES DEGREES pCO2 34 mmHg mmHg (34 - 38) pO2 89 mmHg H mmHg (65 - 75) Total CO2 22 mEq/L L mEq/L (23 - 27) ABG pH 7.41 (7.35 - 7.45) ABG PO2/FiO2 Ratio 223 RATIO RATIO ABG O2 Saturation 97 % H % (92 - 95) ABG Base Excess -3.0 mEq/L L mEq/L (-2.5 - 2.5) O2 Concentration % 40 % % Actual Respiration Rate 27 Set Respiration Rate 16 SIMV YES Tidal Volume 500 End Tidal CO2 PEEP 5 Pressure Support 7 CPAP Calcium 7.3 mg/dL L mg/dL (8.5 - 10.4) Ionized Calcium 0.99 MMOL/L L MMOL/L (1.12 - 1.30) Phosphorus 4.8 mg/dL H mg/dL (2.5 - 4.5) Magnesium 2.1 mg/dL mg/dL (1.6 - 2.3) Total Bilirubin 6.4 mg/dL H mg/dL (0.1 - 1.4) Conjugated Bilirubin 4.7 mg/dL H mg/dL (0.0 - 0.5) Unconjugated Bilirubin 1.7 mg/dL H mg/dL (0.0 - 1.1) AST 4386 IU/L H IU/L (14 - 46) ALT 3926 IU/L H IU/L (9 - 52) Alkaline Phosphatase 311 IU/L H IU/L (38 - 126) Total Protein 6.1 g/dL L g/dL (6.3 - 8.2) Albumin 3.2 g/dL L g/dL (3.5 - 5.0) 01/26/17 01/25/17 05:00 19:30 Hgb 5.3 g/dL L* g/dL (12.6 - 16.3) Hct 14.9 % L* D % (38.0 - 47.0) PT INR Patient Temperature 37.0 DEGREES DEGREES pCO2 38 mmHg mmHg (34 - 38) pO2 38 mmHg L* mmHg (65 - 75) Total CO2 25 mEq/L mEq/L (23 - 27) ABG pH 7.42 (7.35 - 7.45) ABG PO2/FiO2 Ratio 95 RATIO RATIO ABG O2 Saturation 69 % L % (92 - 95) ABG Base Excess -0.2 mEq/L mEq/L (-2.5 - 2.5) O2 Concentration % 40 % % Actual Respiration Rate 35 Set Respiration Rate SIMV Tidal Volume End Tidal CO2 35 PEEP 5 Pressure Support 7 CPAP YES Calcium Ionized Calcium Phosphorus Magnesium Total Bilirubin Conjugated Bilirubin Unconjugated Bilirubin AST ALT Alkaline Phosphatase Total Protein Albumin - Time Spent With Patient Time Spent With Patient: 40 minutes Physical Exam - Physical Exam General Appearance: No alert (Sedated) EENT: PERRL/EOMI, ET tube Neck: non-tender, full range of motion, supple, normal inspection Respiratory: chest non-tender, lungs clear, normal breath sounds Cardiac/Chest: tachycardia, systolic murmur, irregularly irregular Peripheral Pulses: 1+: dorsalis-pedis (R), dorsalis-pedis (L), 2+: carotid (R), carotid (L), femoral (R), femoral (L) Abdomen: soft, distended, No non-tender Pelvic Exam: deferred Rectal: deferred Skin: normal color, warm/dry Extremities: normal range of motion, non-tender, normal inspection, normal capillary refill Neuro/Psych: No alert (Sedated) ICD10 Worksheet Patient Problems: Problems Problem Status Onset Atrial fibrillation Acute Diverticulitis Acute
[2017-01-27] MEDS: CHLORHEXIDINE GLUCONATE 15 ML UDL PO SCH ×2 (08:53→21:46)
[2017-01-27] MEDS: PANTOPRAZOLE SODIUM 40 MG in NS 100 ML IV SCH (08:53)
--- NOTE | 2017-01-27 08:54 | SOAPPROG ---
SOAP Progress Note Assessment/Plan: Assessment: 1. NANCY. Ischemic due to cardiac arrest. Oliguric. Continue CRRT with noncitrated solution. ICa ok at 0.99. Other lytes look fine. Acidosis resolved, of hco3 gtt. Will start to remove a very small amount of fluid, 25 cc/h but back off if BP worse. 2. Retroperitoneal bleed. S/p lumbar embolization of lumbar arteries yesterday. H/h stable. 3. Hypovolemic shock. BPs, LFTs improving. 4. Abdominal sepsis. Continues on zosyn. Plan: 01/13/17 13:56 01/13/17 14:00 01/14/17 09:58 01/14/17 10:14 01/14/17 10:16 01/14/17 10:17 01/14/17 10:18 01/14/17 10:19 01/27/17 08:55 01/27/17 08:59 Subjective: Patient seen and examined on CRRT. No alarms, running well. Off bicarb drip. Still requiring lower dose levophed. Went back into AF/RVR last night, requiring amio/dilt. Weeping from abdom wounds. Objective: Vital Signs Temp Pulse Resp BP Pulse Ox 35.1 C L 128 H 28 H 93/56 L 9 L 01/27/17 07:00 01/27/17 07:00 01/27/17 07:00 01/27/17 07:00 01/27/17 07:00 Laboratory Results 01/27/17 04:00 01/27/17 04:00 01/26/17 01/27/17 01/28/17 05:59 05:59 05:59 Intake Total 8839 0 Output Total 692 670 Balance 8147 -670 PT 21.0 SEC (12.0-15.0) H 01/26/17 05:45 INR 1.80 (0.83-1.16) H 01/26/17 05:45 Intubated, critically ill, sedated IRIR, tachy, no m/g/r CTAB ET tube with purulent secretions Abdom distended, +pitting edema, lower abd wall wound dehisced 4+ LE pitting edema ICD10 Worksheet Patient Problems: Problems Problem Status Onset Atrial fibrillation Acute Diverticulitis Acute
--- NOTE | 2017-01-27 08:56 | SOAPPROG ---
SOAP Progress Note Assessment/Plan: Assessment: Currently stable. No evidence of dehiscence or wound infection; cont W-D dressing changes. Plan: 01/26/17 10:12 01/27/17 08:53 Subjective: Per supervisor case loading opened last PM; no drainage. Objective: Vital Signs Temp Pulse Resp BP Pulse Ox 35.1 C L 128 H 28 H 93/56 L 9 L 01/27/17 07:00 01/27/17 07:00 01/27/17 07:00 01/27/17 07:00 01/27/17 07:00 Laboratory Results 01/27/17 04:00 01/27/17 04:00 01/26/17 01/27/17 01/28/17 05:59 05:59 05:59 Intake Total 8839 0 Output Total 692 670 Balance 8147 -670 PT 21.0 SEC (12.0-15.0) H 01/26/17 05:45 INR 1.80 (0.83-1.16) H 01/26/17 05:45 Intubated, sedated Abd sl distended Wound with open areas superior and inferior; probed but only hematoma noted. No erythema. Ostomy pink ICD10 Worksheet Patient Problems: Problems Problem Status Onset Atrial fibrillation Acute Diverticulitis Acute - ICD10 Problem Qualifiers (1) Diverticulitis
--- NOTE | 2017-01-27 09:58 | PCMIDPN ---
Assessment/Plan: # Polymicrobial Peritonitis secondary to anastomotic leak s/p washout and ileostomy on 01/08. Also associated Bacteroides bacteremia --on zosyn, tentatively plan 3 weeks, stop date tomorrow. # Retroperitoneal bleed associated with hypovolemic shock/PEA arrest 01/25 with associated resp failure, ARF, ischemic hepatitis, leukocytosis. All generally improving. # Possible HAP with Stenotrophomonas s/p bactrim # Hypothermia since HD, but also slight worsening leukocytosis - still could all be hypovolumic shock. To be cautious will repeat blood cx. CDiff neg yesterday # ARF on CVVHD: renal dose Zosyn # AF on amiodarone microbiology 01/07 peritoneal cx: mixed intestinal kecia 01/07 blood cx 1/2 sets Bacteroides 01/12 sputum cultures Gram stain is polymicrobial, culture Stenotrophomonas 01/12 blood cultures 1/ coagulase negative Staph 01/15 blood cx (2) negative 01/16 & 01/26 Cdiff neg 01/18 BAL : Neg 01/25 blood cx (2) NGTD Medications Zosyn 2.25g IV Q 6, #20 Subjective: patient remains intubated 2 sons at bedside, no significant concerns today RN reports general improvement Objective: Vital Signs Temp Pulse Resp BP Pulse Ox 35.3 C L 124 H 29 H 104/58 L 98 01/27/17 09:00 01/27/17 09:00 01/27/17 09:00 01/27/17 09:00 01/27/17 09:00 Laboratory Results 01/27/17 04:00 01/27/17 04:00 01/26/17 01/27/17 01/28/17 05:59 05:59 05:59 Intake Total 8839 0 Output Total 692 670 Balance 8147 -670 Gen: sedated on vent HEENT: ETT in place CV: tachy irr Chest: course bs on vent Abd: 2 areas midline incision open without purulence or erythema; FRANK drain OUT, R flank firm but no visible bruising, decreased bowel sound; overall soft ; RLQ ostomy bag with green liquid : Lisa Skin: no rash, marked pallor lines all appear ok on exam: R IJ HD cath L radial A line RUE PICC - Time Spent With Patient Time Spent with Patient: greater than 35 minutes (coordination of care with ICU team, review of plans with family at bedside as described in A&P) Time Spent with Patient: Greater than 35 minutes spent on this patients care, greater than 50% of time spent counseling, educating, and coordinating care regarding the above mentioned plan. ICD10 Worksheet Patient Problems: Problems Problem Status Onset Atrial fibrillation Acute Diverticulitis Acute
--- NOTE | 2017-01-27 09:58 | PDCARPN ---
Cardiology Progress Note Assessment/Plan: Assessment/plan: 72 yo F admitted 01/04 with abdominal pain, went to OR for lysis of adhesions and sigmoid colectomy. Required re-operation for anastamotic leak. In that setting had AF, now on amiodarone. Had been on lovenox until 01/24 when spontaneous RP bleed dx on CT. Course complicated by sepsis/peritonitis, hypoxic respiratory failure requiring reintubation ( extubated 01/20) and ARF. Early on 01/25 had PEA arrest, likely due to progressive hypoxia and hypovolemia. Received CPR, epi with ROSC. Not a candidate for HACA due to coagulopathy. 01/26 had IR embolization of bleeding lumbar arteries. 1. PEA arrest: echo reviewed. Normal LVEF without ischemic wall motion. RV appears normal. No pericardial effusion. ECG not ischemic. Minimallly elevated troponin likely due to CPR and hypotension. Continue supportive care, per ICU. No indication for cardiac cath. 2. Hx PAF: had been in NSR for several days, then back in AF on 01/26 with initiation of CRRT. Repeat amiodarone 150 mg bolus now on drip for rate control. Dig, BB, dilt all contraindicated. No need for DCCV at this time. Anticoag on hold 3. Resp failure: currently intubated. 4. ARF: on CRRT 5. Polymicrobial peritonitis: followed by ID and surgery 6. Shock liver: s/p arrest. Numbers improving. 7. RP bleed and anemia: now stable post lumbar arterial embolization 01/27/17 10:08 Subjective: Intubated and sedated Reviewed/Discussed With: family, hospitalist, multidisciplinary team Time Spent With Patient: 20 minutes Objective: Vital Signs (8 Hrs) Temp Pulse Resp BP Pulse Ox 01/27/17 09:00 35.3 C L 124 H 29 H 104/58 L 98 01/27/17 08:00 119 H 30 H 99 01/27/17 07:00 35.1 C L 128 H 28 H 93/56 L 9 L 01/27/17 06:00 34.9 C L 118 H 27 H 121/65 H 100 01/27/17 05:00 35.0 C L 118 H 28 H 127/67 H 100 01/27/17 04:10 125 H 28 H 100 01/27/17 03:00 35.2 C L 124 H 28 H 125/67 H 100 01/27/17 01:59 35.3 C L 134 H 30 H 88/59 L 100 Intake/Output (24 Hrs) 01/26/17 01/27/17 01/28/17 05:59 05:59 05:59 Intake Total 8839 0 Output Total 692 670 Balance 8147 -670 Intake: Oral (ml) 0 0 IV Intake (ml) 645 IV Infused (ml) 3517 Norepinephrine Bitartrate 472 16 mg In Ns 250 ml @ Per Protocol IV CONT ALECIA Rx# :[id number] Propofol/Emulsion 100 ml 168 @ Titrate IV CONT ALECIA Rx# :[id number] Sodium Bicarbonate 150 2313 meq In D5w 1,000 ml @ 100 mls/hr IV CONT ALECIA Rx#: [id number] Vasopressin/Dextrose 250 564 ml @ As Directed IV CONT ALECIA Rx#:[id number] Tube Feeding (ml) 0 0 Tube Flush (ml) 230 Fresh Frozen Plasma (ml) 2844 Packed Red Blood Cells ( 1400 ml) Platelets (ml) 203 Output: Urine (ml) 17 18 Catheter 17 18 Liquid Stool (ml) 225 475 Ileostomy 225 475 Dialysis Fluid Removed 177 NG Drainage (ml) 0 Small Bore (5-12 Ukrainian) 0 Weighted Right Naris Stomach OG Drainage (ml) 450 Oral Stomach 450 intubated and sedated IRreg, tachy, no murmurs LUngs clear ant/lat No bowel sounds, distended 1+ pedal edema bilaterally Result Diagrams: 01/27/17 04:00 01/27/17 04:00 Cardiac Labs: Cardiac Lab Results (72 Hrs) 01/25/17 01/25/17 09:50 02:30 Troponin I 0.152 H 0.047 H Telemetry: AF with RVR ICD10 Worksheet Patient Problems: Problems Problem Status Onset Atrial fibrillation Acute Diverticulitis Acute
--- NOTE | 2017-01-27 09:59 | HOSPPROG ---
Hospitalist Progress Note Assessment/Plan: 72 yo admitted on 01/04 for diverticulitis, s/p lysis of adhesion and sigmoid colectomy, PEA arrest. Known prior h/o PAF on anticoag. Patient new to me today. - Status post PE a and cardiac arrest with re-intubation and subsequent acute renal failure acute hypoxic respiratory failure metabolic acidosis anoxic hepatic injury and coagulopathy. These are all slowly improving. - Sepsis with hypotension and and positive blood culture for Bacteroides. She is currently on renally adjusted Zosyn. continues to be intermittently hypotensive and requires vasopressin and Levophed for a MAP of 55 or better. - Acute renal failure: Currently on CRRT though is intolerant of fluid removal due to hypotension. - Atrial fib with RVR: Now off anticoagulation due to retroperitoneal bleed. She is currently rate controlled on IV amiodarone. Beta-blockers and digoxin are contraindicated due to hypotension. Patient is off anticoagulation due to retroperitoneal bleed. On 01/26 she underwent IR embolization of the vertebral arteries which were suspected of the source of her retroperitoneal bleed. - Acute encephalopathy likely anoxic encephalopathy and currently sedated on Diprivan. She awakens and responds appropriately and says that she is not in pain. This is probably improving. - LLL pneumonia: Chest x-ray shows increasing bilateral pleural effusions and is on renally adjusted Zosyn. - Status post laparoscopic surgery for diverticular disease on 01/04 and status post intra-abdominal hemorrhage and surgical exploration and clot evacuation. Plan: - Continue cardiopulmonary support as noted above on IV amiodarone Levophed and vasopressin mechanical ventilation - monitor H&H q.12 hours regarding the retroperitoneal bleed. - CR RT and possible fluid removal although that has not been possible due to hypotension. - Blood cultures x3 from the PICC line, dialysis catheter, and the art line. The vascular instability seems to indicate possible ongoing bacteremia. Note also she has a persistent leukocytosis. Subjective: Patient is intubated and sedated on Diprivan but when awakened reports she is not in pain. Objective: Vital Signs Temp Pulse Resp BP Pulse Ox 35.3 C L 124 H 29 H 104/58 L 98 01/27/17 09:00 01/27/17 09:00 01/27/17 09:00 01/27/17 09:00 01/27/17 09:00 Laboratory Results 01/27/17 04:00 01/27/17 04:00 01/26/17 01/27/17 01/28/17 05:59 05:59 05:59 Intake Total 8839 0 Output Total 692 670 Balance 8147 -670 PT 21.0 SEC (12.0-15.0) H 01/26/17 05:45 INR 1.80 (0.83-1.16) H 01/26/17 05:45 Microbiology 01/07/17 16:52 Blood Blood Culture - Final 01/07/17 16:52 Blood Blood Panel (PCR) - Final Bacteroides Vulgatus Group No Organism Detected Laboratory Tests 01/05/17 01/25/17 01/26/17 04:32 02:30 05:45 WBC Hgb Plt Count INR 2.23 H 1.80 H Creatinine 1.5 H AST ALT 01/26/17 01/26/17 01/26/17 05:45 08:57 14:50 WBC 17.14 H D 17.32 H 21.42 H Hgb 6.4 L Plt Count 89 L D INR Creatinine AST ALT 01/27/17 01/27/17 04:00 04:00 WBC 25.88 H Hgb 9.1 L Plt Count 130 L INR Creatinine 1.6 H AST 4386 H ALT 3926 H - Time Spent With Patient Time Spent with Patient: greater than 35 minutes Time Spent with Patient: Greater than 35 minutes spent on this patients care, greater than 50% of time spent counseling, educating, and coordinating care regarding the above mentioned plan. - Pending Discharge Pending Discharge Within 24 Hours: No Pending Discharge Within 48 Hours: No - Physical Exam Constitutional: chronically ill appearing Eyes: PERRL Ears, Nose, Mouth, Throat: moist mucous membranes Cardiovascular: irregularly irregular, other ( Atrial fibrillation at a rate of 110-120 on amiodarone IV.) Respiratory: other ( Limited examination and could only auscultate anteriorly as the patient cannot be moved due to vascular instability. Lungs anteriorly are clear but sound diminished bilaterally on the sides.) Gastrointestinal: normoactive bowel sounds, soft, non-tender abdomen, no palpable masses, other ( Obese.) Genitourinary: no bladder fullness Skin: warm, other ( Significant peripheral edema of the thighs and lower extremity and arms are noted it is pitting and appears nontender.) Musculoskeletal: generalized weakness, other ( Reported to move all 4 extremities when knots deeply sedated.) Neurologic: CN II-XII Intact ( Cranial nerves appear grossly intact.) Psychiatric: interacting appropriately, other ( Interacts appropriately when less sedated.) ICD10 Worksheet Patient Problems: Problems Problem Status Onset Atrial fibrillation Acute Diverticulitis Acute
[2017-01-27 10:27] LABS: IONIZED CALCIUM 1.02 MMOL/L (1.12-1.30)
[2017-01-27 10:40] LABS: ANION GAP 14 mEq/L (8-16); CALCIUM 7.3 mg/dL (8.5-10.4); CARBON DIOXIDE 21 mEq/l (22-31); CHLORIDE 102 mEq/L (97-110); CREATININE 1.5 mg/dL (0.6-1.0); GLOMERULAR FILTRATION RATE 34; GLUCOSE 87 mg/dL (70-100); MAGNESIUM 2.2 mg/dL (1.6-2.3); POTASSIUM 5.1 mEq/L (3.5-5.2); SODIUM 137 mEq/L (134-144)
[2017-01-27] MEDS: VASOPRESSIN/DEXTROSE 250 ML IV SCH ×2 (11:00→19:56)
[2017-01-27 11:49] LABS: HEMATOCRIT 25.6 % (38.0-47.0); HEMOGLOBIN 8.9 g/dL (12.6-16.3)
--- NOTE | 2017-01-27 13:16 | SOAPPROG ---
Downtime Inpatient MD Late Entry SOAP Note: patient H/H stable since angioembolization superficial skin dehiscence noted/wet to dry dressings ordered for now monitor for signs of infection or fascial dehisence Flakita Weeks MD, FACS
[2017-01-27] MEDS: AMIODARONE HCL 200 ML IV SCH (15:02)
[2017-01-27] MEDS: METOPROLOL TARTRATE 25 MG TAB TUBE SCH (15:11)
[2017-01-27 15:37] LABS: IONIZED CALCIUM 1.01 MMOL/L (1.12-1.30)
[2017-01-27 15:52] LABS: ANION GAP 8 mEq/L (8-16); CALCIUM 7.2 mg/dL (8.5-10.4); CARBON DIOXIDE 23 mEq/l (22-31); CHLORIDE 103 mEq/L (97-110); CREATININE 1.3 mg/dL (0.6-1.0); GLOMERULAR FILTRATION RATE 40; GLUCOSE 100 mg/dL (70-100); MAGNESIUM 2.1 mg/dL (1.6-2.3); SODIUM 134 mEq/L (134-144)
[2017-01-27] MEDS: AMIODARONE HCL 200 MG TAB TUBE SCH (19:37)
[2017-01-27] MEDS: TPN 1 EA BAG IV SCH (21:59)
[2017-01-27 22:38] LABS: ANION GAP 11 mEq/L (8-16); CALCIUM 7.3 mg/dL (8.5-10.4); CARBON DIOXIDE 23 mEq/l (22-31); CHLORIDE 101 mEq/L (97-110); CREATININE 1.2 mg/dL (0.6-1.0); GLOMERULAR FILTRATION RATE 44; GLUCOSE 132 mg/dL (70-100); MAGNESIUM 2.3 mg/dL (1.6-2.3); POTASSIUM 4.8 mEq/L (3.5-5.2); SODIUM 135 mEq/L (134-144)
[2017-01-27 22:56] LABS: IONIZED CALCIUM 0.99 MMOL/L (1.12-1.30)
[2017-01-28] MEDS: NS 1,000 ML MISC SCH ×3 (01:29→21:37)
[2017-01-28] MEDS: AMIODARONE HCL 200 ML IV SCH ×3 (01:29→23:24)
[2017-01-28 01:31] LABS: HEMATOCRIT 21.5 % (38.0-47.0); HEMOGLOBIN 7.3 g/dL (12.6-16.3)
[2017-01-28] MEDS: PROPOFOL/EMULSION 100 ML IV SCH ×3 (03:00→17:54)
[2017-01-28] MEDS: BGK 4/2.5 PRISMASATE 5,000 ML DIAL SCH ×12 (03:01→20:17)
[2017-01-28 04:13] LABS: IONIZED CALCIUM 0.99 MMOL/L (1.12-1.30)
[2017-01-28 04:41] LABS: ANION GAP 8 mEq/L (8-16); CALCIUM 7.2 mg/dL (8.5-10.4); CARBON DIOXIDE 23 mEq/l (22-31); CHLORIDE 104 mEq/L (97-110); GLOMERULAR FILTRATION RATE 55; GLUCOSE 203 mg/dL (70-100); MAGNESIUM 2.2 mg/dL (1.6-2.3); POTASSIUM 4.3 mEq/L (3.5-5.2); SODIUM 135 mEq/L (134-144)
[2017-01-28] MEDS: PIPERACILLIN/TAZO 2.25 GM/DEX 50 ML IV SCH ×4 (05:28→22:58)
[2017-01-28 05:54] LABS: BASE EXCESS -1.7 mEq/L (-2.5-2.5); BICARBONATE 22 mEq/L (22-26); IONIZED CALCIUM 1.04 MMOL/L (1.12-1.30); MEASURED OXYGEN SATURATION 98 % (92-95); PCO2 32 mmHg (34-38); PO2 94 mmHg (65-75); TCO2 23 mEq/L (23-27)
[2017-01-28 05:55] LABS: ABSOLUTE NRBC COUNT 0.27 10^3/uL (0-0.01); ADD DIFF? YES; ADD MORPH? YES; ADD SCAN? NO; ATYPICAL LYMPHOCYTE FLAG 0 (0-99); FRAGMENT RBC FLAG 0 (0-99); HEMATOCRIT 21.3 % (38.0-47.0); HEMOGLOBIN 7.3 g/dL (12.6-16.3); LEFT SHIFT FLG 20 (0-99); LIPEMIA HEMOLYSIS FLAG 90 (0-99); MEAN CELL HEMOGLOBIN 30.8 pg (27.9-34.1); MEAN CELL HEMOGLOBIN CONCENTR. 34.3 g/dL (32.4-36.7); MEAN CELL VOLUME 89.9 fL (81.5-99.8); MEAN PLATELET VOLUME 10.5 fL (8.7-11.7); PLATELET CLUMPS FLAG 0 (0-99); PLATELET COUNT 88 10^3/uL (150-400); RED BLOOD CELL COUNT 2.37 10^6/uL (4.18-5.33); RED CELL DISTRIBUTION WIDTH 16.7 % (11.5-15.2)
[2017-01-28 06:00] LABS: O2 CONCENTRATIION 40 % (0-100); P/F RATIO 235 RATIO; SIMV YES
[2017-01-28 06:01] LABS: END TIDAL CO2 27; PATIENT RATE 32; PRESSURE SUPPORT 7
[2017-01-28 06:10] LABS: ALBUMIN 2.6 g/dL (3.5-5.0); ALKALINE PHOSPHATASE 285 IU/L (38-126); ANION GAP 7 mEq/L (8-16); BILIRUBIN,TOTAL 5.9 mg/dL (0.1-1.4); CALCIUM 7.1 mg/dL (8.5-10.4); CARBON DIOXIDE 24 mEq/l (22-31); CHLORIDE 104 mEq/L (97-110); GLOMERULAR FILTRATION RATE 55; GLUCOSE 203 mg/dL (70-100); POTASSIUM 4.2 mEq/L (3.5-5.2); SODIUM 135 mEq/L (134-144); TOTAL PROTEIN 5.1 g/dL (6.3-8.2)
[2017-01-28 06:31] LABS: NRBC-AUTO% 1.5 % (0.0-0.2)
[2017-01-28 07:32] LABS: MICROCYTES 2+; PLATELET ESTIMATE DECREASED (ADEQ)
[2017-01-28 07:33] LABS: POLYCHROMASIA 1+
[2017-01-28] MEDS: CHLORHEXIDINE GLUCONATE 15 ML UDL PO SCH ×2 (07:47→21:26)
[2017-01-28] MEDS: VASOPRESSIN/DEXTROSE 250 ML IV SCH ×2 (07:48→19:43)
[2017-01-28] MEDS: ALBUTEROL 200 PUFFS/18 GM MDI IH SCH ×4 (07:58→19:30)
[2017-01-28 08:25] LABS: BILIRUBIN-CONJUGATED 4.3 mg/dL (0.0-0.5); BILIRUBIN-UNCONJUGATED 1.6 mg/dL (0.0-1.1)
[2017-01-28] MEDS ORDERED: D50W 25 GM/50 ML SYR IVP PRN (08:36)
[2017-01-28 08:37] LABS: ALANINE AMINOTRANSFERASE 2808 IU/L (9-52); ASPARTATE AMINOTRANSFERASE 1799 IU/L (14-46)
--- NOTE | 2017-01-28 08:38 | PDINTPN ---
Mobile Device Developer Progress Note Assessment/Plan: Assessment/plan : * Peritonitis following sigmoid resection complicated by anastamotic leak. Blood cultures are currently growing a GNR, and she is being treated with ertapenem. -antibiotics per Infectious Disease * Retroperitoneal bleed-status post aggressive transfusion. Continues to have ongoing bleeding requiring aggressive transfusion. -will follow hemoglobin hematocrit closely and transfuse appropriately -status post IR embolization * Status post cor-thought this was a bradycardia which led to a PEA arrest. This was likely respiratory to begin with. -patient currently following commands * Shock-on minimal pressors * Metabolic acidosis * Elevated blood sugars secondary to TPN-will start sliding scale and place insulin in the TPN * Coagulopathy-likely DIC * Afib with RVR-began last evening. Currently on amiodarone. * Respiratory failure with hypoxemia: Re intubated during code. Currently stable on mechanical ventilation. FiO2 is at 40%. 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 Aneuric -on CRRT * Transaminitis - markedly elevated, but improved in the last 24 hours * Anemia- hemoglobin and hematocrit are down from yesterday. -consider further angiography * Nutrition: TPN started 35 minutes of critical care time spent with patient Case discussed with family, nursing, RT and Cardiology. Subjective: Sedated and on mechanical ventilation Objective: Vital Signs Temp Pulse Resp BP Pulse Ox 35.6 C L 108 H 33 H 132/60 H 100 01/28/17 08:00 01/28/17 08:00 01/28/17 08:00 01/28/17 08:00 01/28/17 08:00 Laboratory Results 01/28/17 05:45 01/28/17 05:45 01/27/17 01/28/17 01/29/17 05:59 05:59 05:59 Intake Total 0 Output Total 427 388 Balance -427 -388 PT 21.0 SEC (12.0-15.0) H 01/26/17 05:45 INR 1.80 (0.83-1.16) H 01/26/17 05:45 Laboratory Results 01/28/17 05:45 01/28/17 05:45 01/28/17 01/28/17 01/28/17 05:45 05:45 00:20 Hgb 7.3 g/dL L g/dL (12.6 - 16.3) Hct 21.5 % L % (38.0 - 47.0) Patient Temperature 35.3 DEGREES DEGREES pCO2 32 mmHg L mmHg (34 - 38) pO2 94 mmHg H mmHg (65 - 75) Total CO2 23 mEq/L mEq/L (23 - 27) ABG pH 7.44 (7.35 - 7.45) ABG PO2/FiO2 Ratio 235 RATIO RATIO ABG O2 Saturation 98 % H % (92 - 95) ABG Base Excess -1.7 mEq/L mEq/L (-2.5 - 2.5) O2 Concentration % 40 % % Actual Respiration Rate 32 Set Respiration Rate 16 SIMV YES Tidal Volume 500 End Tidal CO2 27 PEEP 5 Pressure Support 7 Ionized Calcium 1.04 MMOL/L L MMOL/L (1.12 - 1.30) Total Bilirubin 5.9 mg/dL H mg/dL (0.1 - 1.4) Conjugated Bilirubin 4.3 mg/dL H mg/dL (0.0 - 0.5) Unconjugated Bilirubin 1.6 mg/dL H mg/dL (0.0 - 1.1) Alkaline Phosphatase 285 IU/L H IU/L (38 - 126) Total Protein 5.1 g/dL L g/dL (6.3 - 8.2) Albumin 2.6 g/dL L g/dL (3.5 - 5.0) 01/27/17 11:40 Hgb 8.9 g/dL L g/dL (12.6 - 16.3) Hct 25.6 % L % (38.0 - 47.0) Patient Temperature pCO2 pO2 Total CO2 ABG pH ABG PO2/FiO2 Ratio ABG O2 Saturation ABG Base Excess O2 Concentration % Actual Respiration Rate Set Respiration Rate SIMV Tidal Volume End Tidal CO2 PEEP Pressure Support Ionized Calcium Total Bilirubin Conjugated Bilirubin Unconjugated Bilirubin Alkaline Phosphatase Total Protein Albumin Chest [id number] by myself. Endotracheal tube in good position, small pleural effusions are present. Physical Exam - Physical Exam General Appearance: other (Sedated), No alert EENT: PERRL/EOMI, ET tube Neck: non-tender, full range of motion, supple, normal inspection Respiratory: crackles (Few basilar), No respiratory distress, No wheezing, No prolonged expiration Cardiac/Chest: normal peripheral pulses, regular rate, rhythm, systolic murmur Abdomen: normal bowel sounds, non-tender, soft Pelvic Exam: deferred Rectal: deferred Skin: normal color, warm/dry Neuro/Psych: No alert ICD10 Worksheet Patient Problems: Problems Problem Status Onset Atrial fibrillation Acute Diverticulitis Acute
[2017-01-28] MEDS: PANTOPRAZOLE SODIUM 40 MG in NS 100 ML IV SCH (08:39)
--- NOTE | 2017-01-28 09:13 | SOAPPROG ---
SOAP Progress Note Assessment/Plan: Assessment:Plan: ARF-anuric -on CRRT -remains edematous, on pressors -FiO2 40% -will increase ultrafiltration rate to 50ml/hr -follow response -change to intermittent daily Hd once more progress has been made Access-stable Nutrition-now on TPN -discussed briefly with RD 01/28/17 09:10 Subjective: intubated sedated on vent and pressors, CRRT Objective: Vital Signs Temp Pulse Resp BP Pulse Ox 35.6 C L 108 H 33 H 132/60 H 100 01/28/17 08:00 01/28/17 08:00 01/28/17 08:00 01/28/17 08:00 01/28/17 08:00 Laboratory Results 01/28/17 05:45 01/28/17 05:45 01/27/17 01/28/17 01/29/17 05:59 05:59 05:59 Intake Total 0 Output Total 427 388 Balance -427 -388 PT 21.0 SEC (12.0-15.0) H 01/26/17 05:45 INR 1.80 (0.83-1.16) H 01/26/17 05:45 Physical Exam - Physical Exam General Appearance: WD/WN, no apparent distress EENT: normal ENT inspection, ET tube Neck: normal inspection Respiratory: other (coarse breath sounds, no rhonchi) Cardiac/Chest: regular rate, rhythm, No diastolic murmur, No systolic murmur, No friction rub Abdomen: normal bowel sounds, other (ostomy) Extremities: swelling (into thighs) ICD10 Worksheet Patient Problems: Problems Problem Status Onset Atrial fibrillation Acute Diverticulitis Acute
[2017-01-28 10:12] LABS: IONIZED CALCIUM 1.04 MMOL/L (1.12-1.30)
[2017-01-28 10:35] LABS: ANION GAP 8 mEq/L (8-16); CALCIUM 7.1 mg/dL (8.5-10.4); CARBON DIOXIDE 23 mEq/l (22-31); CHLORIDE 105 mEq/L (97-110); GLOMERULAR FILTRATION RATE 55; GLUCOSE 183 mg/dL (70-100); MAGNESIUM 2.2 mg/dL (1.6-2.3); SODIUM 136 mEq/L (134-144)
--- NOTE | 2017-01-28 11:07 | PCMIDPN ---
Assessment/Plan: # Polymicrobial Peritonitis secondary to anastomotic leak s/p washout and ileostomy on 01/08. Also associated Bacteroides bacteremia --on zosyn, s/p 3 weeks therapy, stop date today, NOV adjusted # Retroperitoneal bleed associated with hypovolemic shock/PEA arrest 01/25 with associated resp failure, ARF, ischemic hepatitis, leukocytosis. HCT generally stable. Management per ICU team # Possible HAP with Stenotrophomonas now s/p bactrim # Hypothermia since HD, but also persistent leukocytosis - still could all be hypovolumic shock & CVVHD. Blood cx repeated yesterday. No other clear source. Minimal vent settings, no infiltrate on chest x-ray, C diff was negative 01/26. At this point CT abdomen pelvis is not suggestive of ongoing peritonitis. # ARF on CVVHD: renal dose Zosyn microbiology 01/07 peritoneal cx: mixed intestinal kecia 01/07 blood cx 1/2 sets Bacteroides 01/12 sputum cultures Gram stain is polymicrobial, culture Stenotrophomonas 01/12 blood cultures 1/ coagulase negative Staph 01/15 blood cx (2) negative 01/16 & 01/26 Cdiff neg 01/18 BAL : Neg 01/25 blood cx (2) NGTD 01/27 blood cx (3) Pending Medications Zosyn 2.25g IV Q 6, #21 Subjective: No specific events overnight Objective: Vital Signs Temp Pulse Resp BP Pulse Ox 36 C 116 H 31 H 120/58 L 100 01/28/17 10:00 01/28/17 10:00 01/28/17 10:00 01/28/17 10:00 01/28/17 10:00 Laboratory Results 01/28/17 05:45 01/28/17 09:55 01/27/17 01/28/17 01/29/17 05:59 05:59 05:59 Intake Total 0 Output Total 427 388 0 Balance -427 -388 0 Gen: sedated on vent, significant pallor HEENT: ETT in place CV: tachy irr Chest: course bs on vent Abd:R flank remains firm but no visible bruising, decreased bowel sounds; overall soft ; RLQ ostomy bag with green liquid : Lisa Skin: no rash, marked pallor lines all appear ok on exam: R IJ HD cath L radial A line RUE PICC ICD10 Worksheet Patient Problems: Problems Problem Status Onset Atrial fibrillation Acute Diverticulitis Acute
[2017-01-28] MEDS: SODIUM PHOS 20 MM in D5W 250 ML IV PRN (11:21)
[2017-01-28 11:47] LABS: HEMATOCRIT 21.4 % (38.0-47.0); HEMOGLOBIN 7.3 g/dL (12.6-16.3)
[2017-01-28] MEDS: INSULIN REGULAR HUMAN 100 UNIT/ML SC SCH ×2 (12:46→18:03)
[2017-01-28 12:48] LABS: HEMOGLOBIN 7.7 g/dL (12.6-16.3); MEAN CELL HEMOGLOBIN 30.9 pg (27.9-34.1); MEAN CELL VOLUME 88.4 fL (81.5-99.8); RED BLOOD CELL COUNT 2.49 10^6/uL (4.18-5.33); RED CELL DISTRIBUTION WIDTH 16.9 % (11.5-15.2)
--- NOTE | 2017-01-28 13:30 | SOAPPROG ---
SOAP Progress Note Assessment/Plan: Assessment: Recheck H&H. Cont supportive care. Plan: 01/26/17 10:12 01/27/17 08:53 01/28/17 13:28 Subjective: Drops BP with turning Objective: Vital Signs Temp Pulse Resp BP Pulse Ox 36.3 C 106 H 24 H 121/53 H 100 01/28/17 13:00 01/28/17 13:00 01/28/17 13:00 01/28/17 13:00 01/28/17 13:00 Laboratory Results 01/28/17 12:35 01/28/17 09:55 01/27/17 01/28/17 01/29/17 05:59 05:59 05:59 Intake Total 0 Output Total 427 388 0 Balance -427 -388 0 PT 21.0 SEC (12.0-15.0) H 01/26/17 05:45 INR 1.80 (0.83-1.16) H 01/26/17 05:45 Intubated, sedated. Abd soft Inc without erythema, no dehiscence noted Ostomy pink ICD10 Worksheet Patient Problems: Problems Problem Status Onset Atrial fibrillation Acute Diverticulitis Acute - ICD10 Problem Qualifiers (1) Diverticulitis Qualifiers: Diverticulitis site: D Diverticulitis bleeding: D Diverticulitis complication: D
--- NOTE | 2017-01-28 14:02 | HOSPPROG ---
Hospitalist Progress Note Assessment/Plan: 72 yo admitted on 01/04 for diverticulitis, s/p lysis of adhesion and sigmoid colectomy, PEA arrest. Known prior h/o PAF on anticoag. - Status post PEA and cardiac arrest with re-intubation and subsequent acute renal failure, acute hypoxic respiratory failure, metabolic acidosis, anoxic hepatic injury and coagulopathy. These are all slowly improving. - Sepsis with hypotension and and positive blood culture for Bacteroides. She is currently on renally adjusted Zosyn. She will complete the Zosyn today and antibiotics will be stopped. ID does not feels the infection of the peritoneal abscess is treated. Though her WBC is elevated ID believes this is due to the retroperitoneal bleed, not infection. She continues to be intermittently hypotensive and requires vasopressin and Levophed for a MAP of 55 or better. Today this has been better. - Acute renal failure: Currently on CRRT; today she tolerated fluid extraction at 50cc/hr. -Retroperitoneal bleed, etiology unclear, s/p embolization and now maybe stable. Hgb q-12-h have been between 7.3-8.0. No clear sign she is still bleeding. - Atrial fib with RVR: Now off anticoagulation due to retroperitoneal bleed. She is currently rate controlled on IV amiodarone. Beta-blockers and digoxin are contraindicated due to hypotension, and digoxin is dialyzed. On 01/26 she underwent IR embolization of the vertebral arteries which were suspected of the source of her retroperitoneal bleed. No clear bleeding since - Acute encephalopathy likely anoxic encephalopathy and currently sedated on Diprivan. She awakens and responds appropriately and says that she is not in pain. This is probably improving. - LLL pneumonia: Chest x-ray shows increasing bilateral pleural effusions but no clear pneumonia. Pneumonia has resolved. - Status post laparoscopic surgery for diverticular disease on 01/04 and status post intra-abdominal hemorrhage and surgical exploration and clot evacuation. Plan: - Continue cardiopulmonary support as noted above on IV amiodarone Levophed and vasopressin mechanical ventilation - monitor H&H q.12 hours regarding the retroperitoneal bleed. - CR RT and possible fluid removal -stop zosyn today - Blood cultures x3 from the PICC line, dialysis catheter, and the art line. Note also she has a persistent leukocytosis. Subjective: patient resting on ventilator but responds to requests when phlebotomist prn Objective: Vital Signs Temp Pulse Resp BP Pulse Ox 36.3 C 106 H 24 H 121/53 H 100 01/28/17 13:00 01/28/17 13:00 01/28/17 13:00 01/28/17 13:00 01/28/17 13:00 Laboratory Results 01/28/17 12:35 01/28/17 09:55 01/27/17 01/28/17 01/29/17 05:59 05:59 05:59 Intake Total 0 Output Total 427 388 0 Balance -427 -388 0 PT 21.0 SEC (12.0-15.0) H 01/26/17 05:45 INR 1.80 (0.83-1.16) H 01/26/17 05:45 Laboratory Tests 01/24/17 01/24/17 01/25/17 04:00 16:30 02:30 WBC 12.39 H 17.33 H 21.21 H 01/25/17 01/26/17 01/26/17 06:00 08:57 14:50 WBC 31.69 H 17.32 H 21.42 H 01/27/17 01/28/17 01/28/17 04:00 05:45 12:35 WBC 25.88 H 17.91 H D 18.67 H - Time Spent With Patient Time Spent with Patient: greater than 35 minutes Time Spent with Patient: Greater than 35 minutes spent on this patients care, greater than 50% of time spent counseling, educating, and coordinating care regarding the above mentioned plan. - Pending Discharge Pending Discharge Within 24 Hours: No Pending Discharge Within 48 Hours: No - Physical Exam Constitutional: no apparent distress, chronically ill appearing Eyes: PERRL, anicteric sclera Ears, Nose, Mouth, Throat: moist mucous membranes Cardiovascular: irregularly irregular, tachycardia, edema (severe edema of legs , thighs, buttock), other (atrial fibrillation) Respiratory: no respiratory distress, no rales or rhonchi, dullness to percussion Gastrointestinal: other (hypoactive BS; wound dihescence; no cellulitis; no masses) Skin: warm Musculoskeletal: generalized weakness Neurologic: other (sedated) ICD10 Worksheet Patient Problems: Problems Problem Status Onset Atrial fibrillation Acute Diverticulitis Acute
--- NOTE | 2017-01-28 14:15 | PDCARPN ---
Cardiology Progress Note Assessment/Plan: Assessment/plan: 72 yo F admitted 01/04 with abdominal pain, went to OR for lysis of adhesions and sigmoid colectomy. Required re-operation for anastamotic leak. In that setting had AF, now on amiodarone. Had been on lovenox until 01/24 when spontaneous RP bleed dx on CT. Course complicated by sepsis/peritonitis, hypoxic respiratory failure requiring reintubation and ARF. Early on 01/25 had PEA arrest, likely due to progressive hypoxia and hypovolemia. Received CPR, epi with ROSC. Not a candidate for HACA due to coagulopathy. 01/26 had IR embolization of bleeding lumbar arteries. 1. PEA arrest: echo reviewed. Normal LVEF without ischemic wall motion. RV appears normal. No pericardial effusion. ECG not ischemic. Minimallly elevated troponin likely due to CPR and hypotension. Continue supportive care, per ICU. No indication for cardiac cath. 2. Hx PAF: had been in NSR for several days, then back in AF on 01/26 with initiation of CRRT. Repeat amiodarone 150 mg bolus now on drip for rate control. Dig, BB, dilt all contraindicated. No need for DCCV at this time. Anticoag on hold 3. Resp failure: currently intubated. 4. ARF: on CRRT 5. Polymicrobial peritonitis: followed by ID and surgery 6. Shock liver: s/p arrest. Numbers improving. 7. RP bleed and anemia: now stable post lumbar arterial embolization We will sign off. Please re-consult with change in cardiovascular status. 01/28/17 14:16 Subjective: Intubated and sedated Reviewed/Discussed With: other (Dr. Katz) Objective: Vital Signs (8 Hrs) Temp Pulse Resp BP Pulse Ox 01/28/17 13:59 36.4 C 101 H 27 H 127/53 H 100 01/28/17 13:00 36.3 C 106 H 24 H 121/53 H 100 01/28/17 12:00 36.3 C 113 H 30 H 100/44 L 100 01/28/17 11:59 116 H 18 01/28/17 11:00 36.2 C 115 H 31 H 105/45 L 100 01/28/17 10:00 36 C 116 H 31 H 120/58 L 100 01/28/17 09:00 35.8 C L 106 H 33 H 122/56 H 100 01/28/17 08:00 35.6 C L 108 H 33 H 132/60 H 100 01/28/17 07:59 103 H 37 H 100 01/28/17 07:00 35.5 C L 102 H 30 H 128/60 H 100 Intake/Output (24 Hrs) 01/27/17 01/28/17 01/29/17 05:59 05:59 05:59 Intake Total 0 Output Total 427 388 0 Balance -427 -388 0 Intake: Oral (ml) 0 Tube Feeding (ml) 0 Output: Urine (ml) 0 0 Catheter 0 0 Liquid Stool (ml) 250 Ileostomy 250 Dialysis Fluid Removed 177 388 OG Drainage (ml) 0 Oral Stomach 0 Other: Weight 134.2 kg Intubated and sedated. Irregular regular rhythm. No murmur or gallop Lungs clear anteriorly and laterally. Abdomen is distended. Colostomy back in place. Multiple wound dressings. No bowel sounds. 2+ pitting edema to the knees bilaterally. Extremities are warm Result Diagrams: 01/28/17 12:35 01/28/17 09:55 Telemetry: Atrial Fibrillation with improved ventricular response, still above 100 beats per minute. ICD10 Worksheet Patient Problems: Problems Problem Status Onset Atrial fibrillation Acute Diverticulitis Acute
[2017-01-28 16:23] LABS: IONIZED CALCIUM 1.03 MMOL/L (1.12-1.30)
[2017-01-28 16:42] LABS: ANION GAP 9 mEq/L (8-16); CALCIUM 7.2 mg/dL (8.5-10.4); CARBON DIOXIDE 22 mEq/l (22-31); CHLORIDE 103 mEq/L (97-110); CREATININE 0.9 mg/dL (0.6-1.0); GLOMERULAR FILTRATION RATE > 60; GLUCOSE 190 mg/dL (70-100); MAGNESIUM 2.1 mg/dL (1.6-2.3); POTASSIUM 3.8 mEq/L (3.5-5.2); SODIUM 134 mEq/L (134-144)
[2017-01-28] MEDS: TPN 1 EA BAG IV SCH (20:19)
[2017-01-28] MEDS: ACCESSORY DRAIN 1 EA BAG***SEND #2 INITIALLY MISC PRN (21:36)
[2017-01-28 22:19] LABS: ALBUMIN 2.7 g/dL (3.5-5.0); ALKALINE PHOSPHATASE 297 IU/L (38-126); ANION GAP 9 mEq/L (8-16); BILIRUBIN,TOTAL 6.2 mg/dL (0.1-1.4); CALCIUM 7.4 mg/dL (8.5-10.4); CARBON DIOXIDE 23 mEq/l (22-31); CHLORIDE 102 mEq/L (97-110); CREATININE 0.9 mg/dL (0.6-1.0); GLOMERULAR FILTRATION RATE > 60; GLUCOSE 153 mg/dL (70-100); MAGNESIUM 2.1 mg/dL (1.6-2.3); POTASSIUM 3.8 mEq/L (3.5-5.2); SODIUM 134 mEq/L (134-144); TOTAL PROTEIN 5.6 g/dL (6.3-8.2)
[2017-01-28] MEDS ORDERED: CALCIUM GLUCONATE 50 ML IV ONE (22:40)
[2017-01-28 22:46] LABS: ASPARTATE AMINOTRANSFERASE 1394 IU/L (14-46)
[2017-01-28 23:08] LABS: ALANINE AMINOTRANSFERASE 2616 IU/L (9-52)
[2017-01-29] MEDS: BGK 4/2.5 PRISMASATE 5,000 ML DIAL SCH ×8 (00:15→21:17)
[2017-01-29] MEDS: SODIUM PHOS 20 MM in D5W 250 ML IV PRN ×3 (00:15→13:25)
[2017-01-29] MEDS: INSULIN REGULAR HUMAN 100 UNIT/ML SC SCH ×4 (00:16→18:03)
[2017-01-29 00:31] LABS: HEMATOCRIT 20.4 % (38.0-47.0); HEMOGLOBIN 7.1 g/dL (12.6-16.3)
[2017-01-29] MEDS: PROPOFOL/EMULSION 100 ML IV SCH ×2 (02:39→09:33)
[2017-01-29] MEDS: NS 1,000 ML MISC SCH ×4 (02:39→21:17)
[2017-01-29 04:05] LABS: BILIRUBIN-CONJUGATED 4.3 mg/dL (0.0-0.5); BILIRUBIN-UNCONJUGATED 1.9 mg/dL (0.0-1.1)
[2017-01-29 04:23] LABS: IONIZED CALCIUM 1.01 MMOL/L (1.12-1.30)
[2017-01-29 04:24] LABS: ABSOLUTE NRBC COUNT 0.54 10^3/uL (0-0.01); ADD DIFF? YES; ADD SCAN? NO; ATYPICAL LYMPHOCYTE FLAG 20 (0-99); FRAGMENT RBC FLAG 0 (0-99); HEMATOCRIT 26.5 % (38.0-47.0); LEFT SHIFT FLG 70 (0-99); LIPEMIA HEMOLYSIS FLAG 90 (0-99); MEAN CELL HEMOGLOBIN 30.3 pg (27.9-34.1); MEAN CELL VOLUME 89.2 fL (81.5-99.8); MEAN PLATELET VOLUME 10.9 fL (8.7-11.7); PLATELET CLUMPS FLAG 10 (0-99); PLATELET COUNT 83 10^3/uL (150-400); RED BLOOD CELL COUNT 2.97 10^6/uL (4.18-5.33)
[2017-01-29 04:27] LABS: ADD MORPH? NO; NRBC-AUTO% 2.7 % (0.0-0.2)
[2017-01-29 04:41] LABS: ALBUMIN 2.7 g/dL (3.5-5.0); ALKALINE PHOSPHATASE 304 IU/L (38-126); ANION GAP 8 mEq/L (8-16); BILIRUBIN,TOTAL 7.2 mg/dL (0.1-1.4); CALCIUM 7.5 mg/dL (8.5-10.4); CARBON DIOXIDE 25 mEq/l (22-31); CHLORIDE 104 mEq/L (97-110); CREATININE 0.8 mg/dL (0.6-1.0); GLOMERULAR FILTRATION RATE > 60; GLUCOSE 118 mg/dL (70-100); POTASSIUM 3.6 mEq/L (3.5-5.2); SODIUM 137 mEq/L (134-144); TOTAL PROTEIN 5.7 g/dL (6.3-8.2)
[2017-01-29 04:48] LABS: ASPARTATE AMINOTRANSFERASE 1248 IU/L (14-46)
[2017-01-29 05:14] LABS: BILIRUBIN-CONJUGATED 5.2 mg/dL (0.0-0.5); MAGNESIUM 2.1 mg/dL (1.6-2.3)
[2017-01-29 05:26] LABS: ASSIST CONTROL YES; O2 CONCENTRATIION 40 % (0-100)
[2017-01-29 05:27] LABS: TOTAL RATE 6
[2017-01-29] MEDS: PIPERACILLIN/TAZO 2.25 GM/DEX 50 ML IV SCH (05:28)
[2017-01-29 05:29] LABS: BASE EXCESS -1.3 mEq/L (-2.5-2.5); BICARBONATE 23 mEq/L (22-26); IONIZED CALCIUM 1.07 MMOL/L (1.12-1.30); MEASURED OXYGEN SATURATION 48 % (92-95); P/F RATIO 70 RATIO; PCO2 41 mmHg (34-38); TCO2 25 mEq/L (23-27)
[2017-01-29 05:44] LABS: PLATELET ESTIMATE DECREASED (ADEQ); POLYCHROMASIA 1+
[2017-01-29 05:45] LABS: ACANTHOCYTES 1+
[2017-01-29 05:48] LABS: ALANINE AMINOTRANSFERASE 2438 IU/L (9-52)
[2017-01-29] MEDS: POTASSIUM Cl (KCl) 100 ML IV PRN ×2 (05:48→06:20)
[2017-01-29 06:09] LABS: PO2 28 mmHg (65-75)
[2017-01-29] MEDS: CHLORHEXIDINE GLUCONATE 15 ML UDL PO SCH ×2 (07:22→20:48)
[2017-01-29] MEDS: PANTOPRAZOLE SODIUM 40 MG in NS 100 ML IV SCH (07:23)
--- NOTE | 2017-01-29 09:01 | SOAPPROG ---
SOAP Progress Note Assessment/Plan: Assessment: 1)Oliguric NANCY- ATN in setting of sepsis, PEA arrest, IV contrast -remains oligo-anuric -Continue CRRT (no citrate), goal UF -50 cc/hr but may not achieve this given pressors -not ready to transition to HD yet given hemodynamics 2)Acute hypoxic resp failure - FIo2 stable 40%, volume overloaded- attempt gentle UF as tolerates with CRRT 3)Anemia of acute illness/blood loss -had RP bleed, s/p arterial embolization- drop in Hct and plans for possible CTA later today 4)Polymicrobial sepsis with peritonitis -diverticulitis s/p lysis of adhesions, sigmoidectomy -ID following -remains on pressors 5)Shock liver 6)low phos- repleting per CRRT protocol 7)Met acidosis- last gas ok, follow on CRRT I discussed with INTERMODAL DISPATCHER and family 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 She is using CVVHDF with RIJ Qb 200, Qr 1500, Qd 1500 , goal UF -50 cc/hr. Remains on levophed @ 2.5, FIO2 40%. RN reports no problems with CRRT, not always able to reach hourly UF goal but not having to increase pressors. Possible plans for CT later today. Family at bedside and I updated them. Objective: Vital Signs Temp Pulse Resp BP Pulse Ox 37.1 C 110 H 24 H 136/83 H 100 01/29/17 08:00 01/29/17 08:00 01/29/17 08:00 01/29/17 08:00 01/29/17 08:00 Laboratory Results 01/29/17 04:10 01/29/17 04:10 01/28/17 01/29/17 01/30/17 05:59 05:59 05:59 Intake Total 1547 Output Total 388 560 31 Balance -388 987 -31 PT 21.0 SEC (12.0-15.0) H 01/26/17 05:45 INR 1.80 (0.83-1.16) H 01/26/17 05:45 Physical Exam - Physical Exam General Appearance: other (intubated, sedated, on FIO2 40%, on levophed @ 2.5) Neck: other (RIJ HD cath) Respiratory: other (cta ant bilat) Cardiac/Chest: regular rate, rhythm Abdomen: other (distended, ostomy in place, wound dressing c/d/i) Extremities: other (++ edema bilat LE) Neuro/Psych: other (sedated) ICD10 Worksheet Patient Problems: Problems Problem Status Onset Atrial fibrillation Acute Diverticulitis Acute
[2017-01-29] MEDS: ALBUTEROL 200 PUFFS/18 GM MDI IH SCH ×4 (09:09→19:34)
--- NOTE | 2017-01-29 09:15 | PDINTPN ---
[employer] Progress Note Assessment/Plan: Assessment/plan : * Peritonitis following sigmoid resection complicated by anastamotic leak. Blood cultures are currently growing a GNR, and she is being treated with ertapenem. -antibiotics per Infectious Disease * Retroperitoneal bleed-status post aggressive transfusion. Continues to have ongoing bleeding requiring aggressive transfusion. -will follow hemoglobin hematocrit closely and transfuse appropriately -status post IR embolization * Status post cor-thought this was a bradycardia which led to a PEA arrest. This was likely respiratory to begin with. -patient currently following commands * Shock-on minimal pressors * GI bleed- * Metabolic acidosis * Elevated blood sugars secondary to TPN-will start sliding scale and place insulin in the TPN * Coagulopathy-likely DIC * Afib with RVR-began last evening. Currently on amiodarone. * Respiratory failure with hypoxemia: Currently stable on mechanical ventilation. FiO2 is at 40%. 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 Aneuric -on CRRT * Transaminitis - continues to improve * Anemia- hemoglobin and hematocrit are down from yesterday. -CT angio abd and pelvis today * Nutrition: TPN started 40 minutes of critical care time spent with patient Case discussed with family, nursing, RT Subjective: Sedated Objective: Vital Signs Temp Pulse Resp BP Pulse Ox 37.1 C 110 H 24 H 136/83 H 100 01/29/17 08:00 01/29/17 08:00 01/29/17 08:00 01/29/17 08:00 01/29/17 08:00 Laboratory Results 01/29/17 04:10 01/29/17 04:10 01/28/17 01/29/17 01/30/17 05:59 05:59 05:59 Intake Total 1547 Output Total 388 560 31 Balance -388 987 -31 PT 21.0 SEC (12.0-15.0) H 01/26/17 05:45 INR 1.80 (0.83-1.16) H 01/26/17 05:45 Laboratory Results 01/29/17 04:10 01/29/17 04:10 01/29/17 01/29/17 01/29/17 05:10 04:10 04:10 Hgb Hct Patient Temperature 37.0 DEGREES DEGREES pCO2 41 mmHg H mmHg (34 - 38) pO2 28 mmHg L* mmHg (65 - 75) Total CO2 25 mEq/L mEq/L (23 - 27) ABG pH 7.37 (7.35 - 7.45) ABG PO2/FiO2 Ratio 70 RATIO RATIO ABG O2 Saturation 48 % L % (92 - 95) ABG Base Excess -1.3 mEq/L mEq/L (-2.5 - 2.5) O2 Concentration % 40 % % Respiration Rate 6 Set Respiration Rate 16 Assist Control YES Tidal Volume 550 PEEP 5 Calcium 7.5 mg/dL L mg/dL (8.5 - 10.4) Ionized Calcium 1.01 MMOL/L L MMOL/L (1.12 - 1.30) Phosphorus 2.2 mg/dL L mg/dL (2.5 - 4.5) Magnesium 2.1 mg/dL mg/dL (1.6 - 2.3) Total Bilirubin 7.2 mg/dL H mg/dL (0.1 - 1.4) Conjugated Bilirubin 5.2 mg/dL H mg/dL (0.0 - 0.5) Unconjugated Bilirubin 2.0 mg/dL H mg/dL (0.0 - 1.1) AST 1248 IU/L H IU/L (14 - 46) ALT 2438 IU/L H IU/L (9 - 52) Alkaline Phosphatase 304 IU/L H IU/L (38 - 126) Total Protein 5.7 g/dL L g/dL (6.3 - 8.2) Albumin 2.7 g/dL L g/dL (3.5 - 5.0) 01/29/17 01/28/17 00:05 11:43 Hgb 7.1 g/dL L g/dL 7.3 g/dL L g/dL (12.6 - 16.3) (12.6 - 16.3) Hct 20.4 % L % 21.4 % L % (38.0 - 47.0) (38.0 - 47.0) Patient Temperature pCO2 pO2 Total CO2 ABG pH ABG PO2/FiO2 Ratio ABG O2 Saturation ABG Base Excess O2 Concentration % Respiration Rate Set Respiration Rate Assist Control Tidal Volume PEEP Calcium Ionized Calcium Phosphorus Magnesium Total Bilirubin Conjugated Bilirubin Unconjugated Bilirubin AST ALT Alkaline Phosphatase Total Protein Albumin Chest [id number] by myself. Endotracheal tube in good position. Probable right pleural effusion - Time Spent With Patient Time Spent With Patient: 40 minutes of critical care time Physical Exam - Physical Exam General Appearance: other (Sedated), No alert EENT: PERRL/EOMI, ET tube Neck: non-tender, full range of motion, supple, normal inspection Respiratory: crackles (Right), No respiratory distress, No wheezing Cardiac/Chest: normal peripheral pulses, regular rate, rhythm, systolic murmur Abdomen: normal bowel sounds, non-tender, soft Pelvic Exam: deferred Rectal: deferred Skin: normal color, warm/dry ICD10 Worksheet Patient Problems: Problems Problem Status Onset Atrial fibrillation Acute Diverticulitis Acute
[2017-01-29] MEDS: AMIODARONE HCL 900 MG in D5W 500 ML IV SCH ×2 (09:32→10:14)
[2017-01-29 09:59] LABS: IONIZED CALCIUM 0.96 MMOL/L (1.12-1.30)
[2017-01-29 10:30] LABS: ALBUMIN 2.7 g/dL (3.5-5.0); ALKALINE PHOSPHATASE 293 IU/L (38-126); ANION GAP 11 mEq/L (8-16); BILIRUBIN,TOTAL 8.2 mg/dL (0.1-1.4); CALCIUM 6.9 mg/dL (8.5-10.4); CARBON DIOXIDE 23 mEq/l (22-31); CHLORIDE 99 mEq/L (97-110); CREATININE 0.8 mg/dL (0.6-1.0); GLOMERULAR FILTRATION RATE > 60; GLUCOSE 240 mg/dL (70-100); SODIUM 133 mEq/L (134-144); TOTAL PROTEIN 5.4 g/dL (6.3-8.2)
[2017-01-29 10:39] LABS: ALANINE AMINOTRANSFERASE > 2000 IU/L (9-52); ASPARTATE AMINOTRANSFERASE 1104 IU/L (14-46)
[2017-01-29] MEDS ORDERED: IOPAMIDOL (ISOVUE 370) 100 ML BTL IV ONE (11:05)
[2017-01-29 12:55] LABS: BILIRUBIN-CONJUGATED 6.1 mg/dL (0.0-0.5); BILIRUBIN-UNCONJUGATED 2.1 mg/dL (0.0-1.1)
--- NOTE | 2017-01-29 13:22 | HOSPPROG ---
Hospitalist Progress Note Assessment/Plan: #Polymicrobial peritonitis: sigmoid resection complicated by anastomotic leak. Completed 3 weeks Zosyn 01/28 #Bacteroides bacteremia: abx as above #PEA arrest: 01/25 likely due to hypovolemia/hypothermia. Cardiology consulted. Echo without LV dysfunction or wall motion abnormality #HAP: s/p bactrim #Retroperitoneal bleed: sp IR embolization, but concern for ongoing bleed. CTA a /p pending. #Leukocytosis: stress-response to bleed? Currently afebril, s/p abx. Monitor closely #Oliguric ARF: due PEA arrest, IV contrast. CRRT, not hemodynamically stable for HD #Acute blood loss anemia: due to retroperitoneal bleed #Septic shock: still requiring pressors #Acute hypoxemic resp failure: cont vent #Metabolic acidosis: cont CRRT #Diet: TFs #DVT ppx: SCDs Subjective: drop in H/H last night Objective: Vital Signs Temp Pulse Resp BP Pulse Ox 38 C 93 25 H 124/56 H 95 01/29/17 13:00 01/29/17 13:00 01/29/17 13:00 01/29/17 13:00 01/29/17 13:00 Laboratory Results 01/29/17 04:10 01/29/17 09:50 01/28/17 01/29/17 01/30/17 05:59 05:59 05:59 Intake Total 1547 Output Total 388 560 31 Balance -388 987 -31 PT 21.0 SEC (12.0-15.0) H 01/26/17 05:45 INR 1.80 (0.83-1.16) H 01/26/17 05:45 - Physical Exam Constitutional: other (sedated) Eyes: PERRL Ears, Nose, Mouth, Throat: moist mucous membranes, hearing normal, other (ET in place) Cardiovascular: no murmur, rub, or gallop, irregularly irregular Respiratory: no respiratory distress Gastrointestinal: normoactive bowel sounds, other (abdominal incision dressed, C /D/I. Ostomy ) Genitourinary: feldman in urethra Skin: warm Neurologic: other (sedated) ICD10 Worksheet Patient Problems: Problems Problem Status Onset Atrial fibrillation Acute Diverticulitis Acute
[2017-01-29 13:33] LABS: HEMATOCRIT 28.8 % (38.0-47.0); HEMOGLOBIN 10.1 g/dL (12.6-16.3)
[2017-01-29] MEDS ORDERED: HEPARIN 50,000 UNIT/10 ML VIAL ONE (13:35)
[2017-01-29 14:03] LABS: INR 1.57 (0.83-1.16); PROTIME(PATIENT) 18.8 SEC (12.0-15.0)
[2017-01-29 14:04] LABS: APTT 36.2 SEC (23.0-38.0)
[2017-01-29] MEDS ORDERED: ACETAMINOPHEN 650 MG/20.3 ML UDCUP PO PRN (14:05)
[2017-01-29] MEDS: ACETAMINOPHEN 650 MG/20.3 ML UDCUP TUBE PRN (14:33)
--- NOTE | 2017-01-29 14:43 | SOAPPROG ---
SOAP Progress Note Assessment/Plan: Assessment: Further drop in H&H, check CTA. Plan: 01/26/17 10:12 01/27/17 08:53 01/28/17 13:28 01/29/17 14:42 Subjective: Still with BP drop during turning. Objective: Vital Signs Temp Pulse Resp BP Pulse Ox 38.2 C 97 29 H 124/54 H 96 01/29/17 14:00 01/29/17 14:00 01/29/17 14:00 01/29/17 14:00 01/29/17 14:00 Laboratory Results 01/29/17 13:20 01/29/17 09:50 01/28/17 01/29/17 01/30/17 05:59 05:59 05:59 Intake Total 1547 Output Total 388 560 31 Balance -388 987 -31 PT 18.8 SEC (12.0-15.0) H 01/29/17 13:45 INR 1.57 (0.83-1.16) H 01/29/17 13:45 Intubated, sedated Abd distended Inc without erythema Ostomy viable ICD10 Worksheet Patient Problems: Problems Problem Status Onset Atrial fibrillation Acute Diverticulitis Acute - ICD10 Problem Qualifiers (1) Diverticulitis Qualifiers: Diverticulitis site: D Diverticulitis bleeding: D Diverticulitis complication: D
[2017-01-29 15:56] LABS: IONIZED CALCIUM 1.05 MMOL/L (1.12-1.30)
[2017-01-29 16:37] LABS: ALBUMIN 2.4 g/dL (3.5-5.0); ALKALINE PHOSPHATASE 265 IU/L (38-126); ANION GAP 10 mEq/L (8-16); BILIRUBIN,TOTAL 8.5 mg/dL (0.1-1.4); CALCIUM 7.2 mg/dL (8.5-10.4); CARBON DIOXIDE 23 mEq/l (22-31); CHLORIDE 103 mEq/L (97-110); CREATININE 1.1 mg/dL (0.6-1.0); GLOMERULAR FILTRATION RATE 49; GLUCOSE 114 mg/dL (70-100); POTASSIUM 3.8 mEq/L (3.5-5.2); SODIUM 136 mEq/L (134-144); TOTAL PROTEIN 5.1 g/dL (6.3-8.2)
[2017-01-29 16:54] LABS: ALANINE AMINOTRANSFERASE 1738 IU/L (9-52); ASPARTATE AMINOTRANSFERASE 860 IU/L (14-46)
[2017-01-29 17:01] LABS: BILIRUBIN-CONJUGATED 6.7 mg/dL (0.0-0.5); BILIRUBIN-UNCONJUGATED 1.8 mg/dL (0.0-1.1)
[2017-01-29] MEDS ORDERED: PROPOFOL/EMULSION 500 MG/50 ML BOTTLE IV ONE (18:09)
[2017-01-29] MEDS ORDERED: LIDOCAINE 1% 30 ML SDV ONE (18:17)
[2017-01-29] MEDS ORDERED: IOPAMIDOL (ISOVUE-300) 100 ML BTL ONE ×3 (18:17→18:42)
--- NOTE | 2017-01-29 18:57 | POSTOPPROG ---
Post Op Note Date of Operation: 01/29/17 Surgeon: Ramonita Rosas Pre-op Diagnosis: hypotension Post-op Diagnosis: same Indication: continued bleeding Procedure: angiogram with embolization, t10-L1 Findings: No active bleeding; T11-L1 embolized Inf/Abcess present in the surg proc area at time of surgery?: No Depth: Superfical (Skin SQ) EBL: Minimal
[2017-01-29 20:22] LABS: ABSOLUTE NRBC COUNT 0.69 10^3/uL (0-0.01); ADD DIFF? YES; ATYPICAL LYMPHOCYTE FLAG 0 (0-99); FRAGMENT RBC FLAG 0 (0-99); HEMATOCRIT 27.4 % (38.0-47.0); HEMOGLOBIN 9.6 g/dL (12.6-16.3); LIPEMIA HEMOLYSIS FLAG 90 (0-99); MEAN CELL HEMOGLOBIN 30.4 pg (27.9-34.1); MEAN CELL VOLUME 86.7 fL (81.5-99.8); MEAN PLATELET VOLUME 10.9 fL (8.7-11.7); PLATELET CLUMPS FLAG 10 (0-99); PLATELET COUNT 66 10^3/uL (150-400); RED BLOOD CELL COUNT 3.16 10^6/uL (4.18-5.33); RED CELL DISTRIBUTION WIDTH 17.3 % (11.5-15.2)
[2017-01-29 20:24] LABS: ADD MORPH? NO; ADD SCAN? NO; LEFT SHIFT FLG 120 (0-99); NRBC-AUTO% 3.5 % (0.0-0.2)
[2017-01-29 20:28] LABS: IONIZED CALCIUM 0.97 MMOL/L (1.12-1.30)
[2017-01-29 20:38] LABS: ALBUMIN 2.3 g/dL (3.5-5.0); ALKALINE PHOSPHATASE 255 IU/L (38-126); ANION GAP 9 mEq/L (8-16); ASPARTATE AMINOTRANSFERASE 722 IU/L (14-46); BILIRUBIN,TOTAL 8.5 mg/dL (0.1-1.4); CALCIUM 7.3 mg/dL (8.5-10.4); CARBON DIOXIDE 23 mEq/l (22-31); CHLORIDE 100 mEq/L (97-110); CREATININE 1.3 mg/dL (0.6-1.0); GLOMERULAR FILTRATION RATE 40; GLUCOSE 106 mg/dL (70-100); MAGNESIUM 1.9 mg/dL (1.6-2.3); POTASSIUM 3.7 mEq/L (3.5-5.2); SODIUM 132 mEq/L (134-144); TOTAL PROTEIN 5.1 g/dL (6.3-8.2)
[2017-01-29 21:09] LABS: ALANINE AMINOTRANSFERASE 1659 IU/L (9-52)
[2017-01-29 21:17] LABS: BILIRUBIN-UNCONJUGATED 1.5 mg/dL (0.0-1.1)
[2017-01-29] MEDS: TPN 1 EA BAG IV SCH (21:42)
[2017-01-29] MEDS ORDERED: CALCIUM GLUCONATE 2 GM in D5W 50 ML IV PRN (21:42)
[2017-01-29 21:48] LABS: PLATELET ESTIMATE DECREASED (ADEQ)
[2017-01-29 21:53] LABS: ECHINOCYTES 1+; SCHISTOCYTES 1+
[2017-01-29] MEDS ORDERED: CALCIUM GLUCONATE 2 GM in D5W 50 ML IV ONE (22:00)
[2017-01-30 00:33] LABS: IONIZED CALCIUM 1.04 MMOL/L (1.12-1.30)
[2017-01-30 00:35] LABS: HEMATOCRIT 29.6 % (38.0-47.0); HEMOGLOBIN 10.4 g/dL (12.6-16.3)
[2017-01-30] MEDS: BGK 4/2.5 PRISMASATE 5,000 ML DIAL SCH ×14 (00:47→22:05)
[2017-01-30] MEDS: NS 1,000 ML MISC SCH ×4 (00:48→21:39)
[2017-01-30 00:57] LABS: ANION GAP 9 mEq/L (8-16); CALCIUM 7.7 mg/dL (8.5-10.4); CARBON DIOXIDE 23 mEq/l (22-31); CHLORIDE 104 mEq/L (97-110); CREATININE 1.1 mg/dL (0.6-1.0); GLOMERULAR FILTRATION RATE 49; GLUCOSE 108 mg/dL (70-100); POTASSIUM 3.8 mEq/L (3.5-5.2); SODIUM 136 mEq/L (134-144)
[2017-01-30] MEDS: INSULIN REGULAR HUMAN 100 UNIT/ML SC SCH ×4 (01:04→21:14)
[2017-01-30] MEDS: ACCESSORY DRAIN 1 EA BAG***SEND #2 INITIALLY MISC PRN (02:07)
[2017-01-30] MEDS: PROPOFOL/EMULSION 100 ML IV SCH ×2 (02:07→21:58)
[2017-01-30 04:38] LABS: IONIZED CALCIUM 1.08 MMOL/L (1.12-1.30)
[2017-01-30 04:43] LABS: HEMATOCRIT 29.7 % (38.0-47.0); HEMOGLOBIN 10.2 g/dL (12.6-16.3); MEAN CELL HEMOGLOBIN 30.8 pg (27.9-34.1); MEAN CELL HEMOGLOBIN CONCENTR. 34.3 g/dL (32.4-36.7); MEAN CELL VOLUME 89.7 fL (81.5-99.8); RED BLOOD CELL COUNT 3.31 10^6/uL (4.18-5.33); RED CELL DISTRIBUTION WIDTH 18.3 % (11.5-15.2)
[2017-01-30 04:53] LABS: ALBUMIN 2.5 g/dL (3.5-5.0); ALKALINE PHOSPHATASE 281 IU/L (38-126); ANION GAP 9 mEq/L (8-16); ASPARTATE AMINOTRANSFERASE 623 IU/L (14-46); CALCIUM 7.9 mg/dL (8.5-10.4); CARBON DIOXIDE 23 mEq/l (22-31); CHLORIDE 104 mEq/L (97-110); GLOMERULAR FILTRATION RATE 55; GLUCOSE 100 mg/dL (70-100); POTASSIUM 3.9 mEq/L (3.5-5.2); SODIUM 136 mEq/L (134-144); TOTAL PROTEIN 5.6 g/dL (6.3-8.2)
[2017-01-30 04:59] LABS: ALANINE AMINOTRANSFERASE 1592 IU/L (9-52)
[2017-01-30 05:05] LABS: BILIRUBIN-CONJUGATED 7.5 mg/dL (0.0-0.5); BILIRUBIN-UNCONJUGATED 1.5 mg/dL (0.0-1.1)
--- NOTE | 2017-01-30 07:56 | SOAPPROG ---
SOAP Progress Note Assessment/Plan: Assessment: 1)Oliguric NANCY- ATN in setting of sepsis, PEA arrest, IV contrast -remains oligo-anuric -Continue CRRT (no citrate), goal UF -50 cc/hr (hemodynamics better today) -not ready to transition to HD yet given hemodynamics- ?maybe Wednesday if able to UF, stable over weekend 2)Acute hypoxic resp failure - FIo2 stable 40%, volume overloaded- attempt gentle UF as tolerates with CRRT 3)Anemia of acute illness/blood loss -had RP bleed, s/p arterial embolization- CTA showed further bleeding and s/p IR embolization 01/29 -Hct stable overnight (did receive PRBCs am of 5.12) 4)Polymicrobial sepsis with peritonitis -diverticulitis s/p lysis of adhesions, sigmoidectomy -ID following -remains on pressors 5)Shock liver- LFTs a bit better today 6)Met acidosis- last gas ok, follow on CRRT I discussed with LABVIEW PROGRAMMER I am stone lathe operator for weekend Liliana Romero MD [facility] [phone] pager 01/30/17 08:42 Subjective: Pt seen on CRRT at 08:37. She is using CVVHDF no citrate, RIJ Qb 200, Qr 1500, Qd 1500, goal UF - 50 cc/hr. Went for embolization yesterday, Hct stable overnight and has not required more PRBCS. Down to Levophed @ 1.5, pressure improved. Objective: Vital Signs Temp Pulse Resp BP Pulse Ox 36.1 C 89 25 H 131/55 H 96 01/30/17 05:00 01/30/17 07:00 01/30/17 07:00 01/30/17 07:00 01/30/17 07:00 Microbiology 01/25/17 06:50 Blood Culture - Final Blood Laboratory Results 01/30/17 04:20 01/30/17 04:20 01/29/17 01/30/17 01/31/17 05:59 05:59 05:59 Intake Total 1547 2180 Output Total 560 1253 Balance 987 927 PT 18.8 SEC (12.0-15.0) H 01/29/17 13:45 INR 1.57 (0.83-1.16) H 01/29/17 13:45 Physical Exam - Physical Exam General Appearance: other (intubated, FIO2 40%, on levophed @ 1.5) Neck: other (RIJ HD cath c/d/i) Respiratory: lungs clear (ant bilat) Cardiac/Chest: regular rate, rhythm, other (no rub) Abdomen: distended, other (ostomy in place, incision dressing c/d/i) Skin: warm/dry Extremities: other (+edema bilat LE) Neuro/Psych: other (sedated) ICD10 Worksheet Patient Problems: Problems Problem Status Onset Atrial fibrillation Acute Diverticulitis Acute
[2017-01-30] MEDS: PANTOPRAZOLE SODIUM 40 MG in NS 100 ML IV SCH (08:10)
[2017-01-30] MEDS: CHLORHEXIDINE GLUCONATE 15 ML UDL PO SCH ×2 (08:10→21:14)
[2017-01-30] MEDS ORDERED: AMIODARONE HCL 900 MG in D5W 500 ML IV PRN (08:13)
--- NOTE | 2017-01-30 08:50 | PDINTPN ---
Java Programming Professor Progress Note Assessment/Plan: Assessment/plan : * Peritonitis following sigmoid resection complicated by anastamotic leak. Blood cultures are currently growing a GNR, and she is being treated with ertapenem. -antibiotics per Infectious Disease * Retroperitoneal bleed-status post aggressive transfusion. Continues to have ongoing bleeding requiring aggressive transfusion. -will follow hemoglobin hematocrit closely and transfuse appropriately -status post repeat IR embolization. -hemoglobin and hematocrit are stable from yesterday * Shock-on minimal pressors -will attempt to wean off today * GI bleed-follow H and H closely * Metabolic acidosis * Elevated blood sugars secondary to TPN-will start sliding scale and place insulin in the TPN * Coagulopathy-likely DIC * Afib with RVR-began last evening. Currently on amiodarone. * Respiratory failure with hypoxemia: Currently stable on mechanical ventilation. FiO2 is at 40%. 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 Aneuric -on CRRT * Transaminitis - continues to improve slowly * Anemia- hemoglobin and hematocrit are down from yesterday. -CT angio abd and pelvis today * Nutrition: TPN started 35 minutes of critical care time spent with patient Case discussed with family, nursing, RT Subjective: Sedated on mechanical ventilation Objective: Vital Signs Temp Pulse Resp BP Pulse Ox 36.7 C 91 29 H 128/62 H 96 01/30/17 08:00 01/30/17 08:00 01/30/17 08:00 01/30/17 08:00 01/30/17 08:00 Microbiology 01/25/17 06:50 Blood Culture - Final Blood Laboratory Results 01/30/17 04:20 01/30/17 04:20 01/29/17 01/30/17 01/31/17 05:59 05:59 05:59 Intake Total 1547 2180 Output Total 560 1253 Balance 987 927 PT 18.8 SEC (12.0-15.0) H 01/29/17 13:45 INR 1.57 (0.83-1.16) H 01/29/17 13:45 Laboratory Results 01/30/17 04:20 01/30/17 04:20 01/30/17 01/30/17 04:20 04:20 Ionized Calcium 1.08 MMOL/L L MMOL/L (1.12 - 1.30) Phosphorus 2.9 mg/dL mg/dL (2.5 - 4.5) Magnesium 2.0 mg/dL mg/dL (1.6 - 2.3) Total Bilirubin 9.0 mg/dL H mg/dL (0.1 - 1.4) Conjugated Bilirubin 7.5 mg/dL H mg/dL (0.0 - 0.5) Unconjugated Bilirubin 1.5 mg/dL H mg/dL (0.0 - 1.1) AST 623 IU/L H IU/L (14 - 46) ALT 1592 IU/L H IU/L (9 - 52) Alkaline Phosphatase 281 IU/L H IU/L (38 - 126) Total Protein 5.6 g/dL L g/dL (6.3 - 8.2) Albumin 2.5 g/dL L g/dL (3.5 - 5.0) Chest [id number] by myself. Endotracheal tube in good position. Bilateral pleural effusions are present, right greater the left. - Time Spent With Patient Time Spent With Patient: 35 minutes critical care time Physical Exam - Physical Exam General Appearance: other (Arousable) EENT: PERRL/EOMI, ET tube Neck: non-tender, full range of motion, supple Respiratory: crackles (Bibasilar), No respiratory distress, No wheezing Cardiac/Chest: normal peripheral pulses, regular rate, rhythm, systolic murmur Abdomen: non-tender, distended Pelvic Exam: deferred Rectal: deferred Skin: normal color, warm/dry Extremities: normal range of motion, non-tender, normal inspection, normal capillary refill Neuro/Psych: No alert ICD10 Worksheet Patient Problems: Problems Problem Status Onset Atrial fibrillation Acute Diverticulitis Acute
[2017-01-30] MEDS: ALBUTEROL 200 PUFFS/18 GM MDI IH SCH ×4 (08:58→20:39)
[2017-01-30 10:07] LABS: IONIZED CALCIUM 1.06 MMOL/L (1.12-1.30)
[2017-01-30] MEDS: ALTEPLASE 2 MG VIAL IVP PRN ×2 (10:15→12:41)
[2017-01-30 10:39] LABS: ALBUMIN 2.4 g/dL (3.5-5.0); ALKALINE PHOSPHATASE 264 IU/L (38-126); ANION GAP 7 mEq/L (8-16); ASPARTATE AMINOTRANSFERASE 559 IU/L (14-46); BILIRUBIN,TOTAL 8.7 mg/dL (0.1-1.4); CALCIUM 7.6 mg/dL (8.5-10.4); CARBON DIOXIDE 25 mEq/l (22-31); CHLORIDE 104 mEq/L (97-110); GLOMERULAR FILTRATION RATE 55; GLUCOSE 102 mg/dL (70-100); SODIUM 136 mEq/L (134-144); TOTAL PROTEIN 5.5 g/dL (6.3-8.2)
[2017-01-30 10:51] LABS: ALANINE AMINOTRANSFERASE 1444 IU/L (9-52)
[2017-01-30 10:58] LABS: BILIRUBIN-CONJUGATED 7.2 mg/dL (0.0-0.5); BILIRUBIN-UNCONJUGATED 1.5 mg/dL (0.0-1.1)
[2017-01-30 12:00] LABS: HEMATOCRIT 28.8 % (38.0-47.0); HEMOGLOBIN 9.9 g/dL (12.6-16.3)
--- NOTE | 2017-01-30 14:13 | HOSPPROG ---
Hospitalist Progress Note Assessment/Plan: #Polymicrobial peritonitis: sigmoid resection complicated by anastomotic leak. Completed 3 weeks Zosyn 01/28 #Bacteroides bacteremia: abx as above #PEA arrest: 01/25 likely due to hypovolemia/hypothermia. Cardiology consulted. Echo without LV dysfunction or wall motion abnormality #HAP: s/p bactrim #Retroperitoneal bleed: sp IR embolization. Repeat embolization 01/29. H/H currently stable #Leukocytosis: stress-response to bleed? Remains afebrile. s/p abx. Monitor closely #Oliguric ARF: due PEA arrest, IV contrast. CRRT. May change to HD Wednesday if hemodynamically stable #Acute blood loss anemia: due to retroperitoneal bleed #Septic shock: still requiring pressors #Acute hypoxemic resp failure: cont vent #Metabolic acidosis: cont CRRT #Diet: TFs #DVT ppx: SCDs Subjective: s/p arterial embolization last night Objective: Vital Signs Temp Pulse Resp BP Pulse Ox 37.1 C 88 26 H 143/53 H 98 01/30/17 14:00 01/30/17 14:00 01/30/17 14:00 01/30/17 14:00 01/30/17 14:00 Microbiology 01/25/17 06:50 Blood Culture - Final Blood Laboratory Results 01/30/17 11:55 01/30/17 10:00 01/29/17 01/30/17 01/31/17 05:59 05:59 05:59 Intake Total 1547 2180 Output Total 560 1253 Balance 987 927 PT 18.8 SEC (12.0-15.0) H 01/29/17 13:45 INR 1.57 (0.83-1.16) H 01/29/17 13:45 - Physical Exam Constitutional: other (sedated) Eyes: PERRL Ears, Nose, Mouth, Throat: moist mucous membranes Cardiovascular: systolic murmur, irregularly irregular Respiratory: no respiratory distress Gastrointestinal: normoactive bowel sounds, other (ostomy. Surgical incisions dressed, C/D/I) Genitourinary: feldman in urethra Skin: warm Musculoskeletal: other (R IJ catheter) Neurologic: other (sedated) ICD10 Worksheet Patient Problems: Problems Problem Status Onset Atrial fibrillation Acute Diverticulitis Acute
--- NOTE | 2017-01-30 14:33 | SOAPPROG ---
SOAP Progress Note Assessment/Plan: Assessment: Stable s/p repeat embolization. Cont support. Plan: 01/26/17 10:12 01/27/17 08:53 01/28/17 13:28 01/29/17 14:42 01/30/17 14:32 Subjective: Embolization last PM. Objective: Vital Signs Temp Pulse Resp BP Pulse Ox 37.1 C 88 26 H 143/53 H 98 01/30/17 14:00 01/30/17 14:00 01/30/17 14:00 01/30/17 14:00 01/30/17 14:00 Microbiology 01/25/17 06:50 Blood Culture - Final Blood Laboratory Results 01/30/17 11:55 01/30/17 10:00 01/29/17 01/30/17 01/31/17 05:59 05:59 05:59 Intake Total 1547 2180 Output Total 560 1253 Balance 987 927 PT 18.8 SEC (12.0-15.0) H 01/29/17 13:45 INR 1.57 (0.83-1.16) H 01/29/17 13:45 Intubated, sedated Abd distended Inc without erythema Ostomy viable ICD10 Worksheet Patient Problems: Problems Problem Status Onset Atrial fibrillation Acute Diverticulitis Acute - ICD10 Problem Qualifiers (1) Diverticulitis Qualifiers: Diverticulitis site: D Diverticulitis bleeding: D Diverticulitis complication: D
[2017-01-30 16:22] LABS: IONIZED CALCIUM 1.11 MMOL/L (1.12-1.30)
[2017-01-30 16:43] LABS: ALBUMIN 2.6 g/dL (3.5-5.0); ALKALINE PHOSPHATASE 272 IU/L (38-126); ANION GAP 11 mEq/L (8-16); ASPARTATE AMINOTRANSFERASE 472 IU/L (14-46); BILIRUBIN,TOTAL 9.4 mg/dL (0.1-1.4); CALCIUM 7.8 mg/dL (8.5-10.4); CARBON DIOXIDE 24 mEq/l (22-31); CHLORIDE 103 mEq/L (97-110); GLOMERULAR FILTRATION RATE 55; GLUCOSE 112 mg/dL (70-100); MAGNESIUM 2.2 mg/dL (1.6-2.3); POTASSIUM 4.1 mEq/L (3.5-5.2); SODIUM 138 mEq/L (134-144); TOTAL PROTEIN 5.6 g/dL (6.3-8.2)
[2017-01-30 17:02] LABS: ALANINE AMINOTRANSFERASE 1329 IU/L (9-52)
[2017-01-30 17:09] LABS: BILIRUBIN-CONJUGATED 7.8 mg/dL (0.0-0.5); BILIRUBIN-UNCONJUGATED 1.6 mg/dL (0.0-1.1)
[2017-01-30] MEDS ORDERED: SODIUM PHOS 20 MM in D5W 250 ML IV SCH (18:00)
[2017-01-30] MEDS: SODIUM PHOS 20 MM in D5W 250 ML IV PRN (18:10)
[2017-01-30] MEDS: TPN 1 EA BAG IV SCH (21:28)
[2017-01-30 22:57] LABS: IONIZED CALCIUM 1.12 MMOL/L (1.12-1.30)
[2017-01-30 23:09] LABS: ALBUMIN 2.6 g/dL (3.5-5.0); ALKALINE PHOSPHATASE 269 IU/L (38-126); ANION GAP 10 mEq/L (8-16); ASPARTATE AMINOTRANSFERASE 374 IU/L (14-46); BILIRUBIN,TOTAL 9.6 mg/dL (0.1-1.4); CALCIUM 7.7 mg/dL (8.5-10.4); CARBON DIOXIDE 24 mEq/l (22-31); CHLORIDE 103 mEq/L (97-110); GLOMERULAR FILTRATION RATE 55; GLUCOSE 119 mg/dL (70-100); MAGNESIUM 2.1 mg/dL (1.6-2.3); POTASSIUM 3.9 mEq/L (3.5-5.2); SODIUM 137 mEq/L (134-144); TOTAL PROTEIN 5.7 g/dL (6.3-8.2)
[2017-01-30 23:23] LABS: BILIRUBIN-CONJUGATED 8.1 mg/dL (0.0-0.5); BILIRUBIN-UNCONJUGATED 1.5 mg/dL (0.0-1.1)
[2017-01-30 23:24] LABS: ALANINE AMINOTRANSFERASE 1210 IU/L (9-52)
[2017-01-31 00:33] LABS: HEMATOCRIT 30.1 % (38.0-47.0); HEMOGLOBIN 10.1 g/dL (12.6-16.3)
[2017-01-31] MEDS: BGK 4/2.5 PRISMASATE 5,000 ML DIAL SCH ×13 (01:43→23:13)
[2017-01-31] MEDS: INSULIN REGULAR HUMAN 100 UNIT/ML SC SCH ×2 (02:07→06:45)
[2017-01-31 04:23] LABS: IONIZED CALCIUM 1.14 MMOL/L (1.12-1.30)
[2017-01-31 04:26] LABS: HEMATOCRIT 29.3 % (38.0-47.0); HEMOGLOBIN 9.9 g/dL (12.6-16.3); MEAN CELL HEMOGLOBIN 30.6 pg (27.9-34.1); MEAN CELL HEMOGLOBIN CONCENTR. 33.8 g/dL (32.4-36.7); MEAN CELL VOLUME 90.4 fL (81.5-99.8); RED BLOOD CELL COUNT 3.24 10^6/uL (4.18-5.33); RED CELL DISTRIBUTION WIDTH 19.6 % (11.5-15.2)
[2017-01-31] MEDS: NS 1,000 ML MISC SCH ×4 (04:40→17:04)
[2017-01-31 04:43] LABS: ALBUMIN 2.6 g/dL (3.5-5.0); ALKALINE PHOSPHATASE 260 IU/L (38-126); ANION GAP 6 mEq/L (8-16); ASPARTATE AMINOTRANSFERASE 318 IU/L (14-46); BILIRUBIN,TOTAL 9.9 mg/dL (0.1-1.4); CALCIUM 7.6 mg/dL (8.5-10.4); CARBON DIOXIDE 25 mEq/l (22-31); CHLORIDE 105 mEq/L (97-110); CREATININE 0.8 mg/dL (0.6-1.0); GLOMERULAR FILTRATION RATE > 60; GLUCOSE 119 mg/dL (70-100); MAGNESIUM 2.1 mg/dL (1.6-2.3); POTASSIUM 3.8 mEq/L (3.5-5.2); SODIUM 136 mEq/L (134-144); TOTAL PROTEIN 5.6 g/dL (6.3-8.2)
[2017-01-31 04:58] LABS: ALANINE AMINOTRANSFERASE 1084 IU/L (9-52)
[2017-01-31 05:05] LABS: BILIRUBIN-CONJUGATED 8.4 mg/dL (0.0-0.5); BILIRUBIN-UNCONJUGATED 1.5 mg/dL (0.0-1.1)
[2017-01-31] MEDS: SODIUM PHOS 20 MM in D5W 250 ML IV PRN ×2 (05:39→16:51)
--- NOTE | 2017-01-31 07:00 | SOAPPROG ---
SOAP Progress Note Assessment/Plan: Assessment: 1)Oliguric NANCY- ATN in setting of sepsis, PEA arrest, IV contrast -remains oligo-anuric -Continue CRRT (no citrate), goal UF -50 cc/hr today -we will consider transition to HD soon if able to UF and hemodynamics remain stable 2)Acute hypoxic resp failure - FIo2 stable 40%, volume overloaded- attempting gentle UF as tolerates with CRRT 3)Anemia of acute illness/blood loss -had RP bleed, s/p arterial embolization- CTA showed further bleeding and s/p IR embolization 01/29 -Hct stable since (did receive PRBCs am of 5.12) 4)Polymicrobial sepsis with peritonitis -diverticulitis s/p lysis of adhesions, sigmoidectomy -ID following -remains on pressors- improved 5)Shock liver- LFTs better today 6)Met acidosis- last gas ok, follow on CRRT I discussed with TRADE CLERK and measurement operator I am utilization management nurse for weekend Liliana Romero MD [facility] [phone] pager 01/31/17 07:26 Subjective: Pt seen on CRRT at 07:25. She is using CVVHDF with RIJ Qb 200, Qr 1500, Qd 1500 , non citrate, UF goal - 50 cc/hr. Remains on 40% FIO2, levophed @ 1. Filter clotted this am and restarted. Hct stable. Objective: Vital Signs Temp Pulse Resp BP Pulse Ox 34.7 C L 69 25 H 120/57 L 100 01/31/17 06:00 01/31/17 06:00 01/31/17 06:00 01/31/17 06:00 01/31/17 06:00 Microbiology 01/25/17 09:50 Blood Culture - Final Blood 01/25/17 06:50 Blood Culture - Final Blood Laboratory Results 01/31/17 04:10 01/31/17 04:10 01/30/17 01/31/17 02/01/17 05:59 05:59 05:59 Intake Total 2180 2937 Output Total 1253 2522 Balance 927 415 PT 18.8 SEC (12.0-15.0) H 01/29/17 13:45 INR 1.57 (0.83-1.16) H 01/29/17 13:45 Physical Exam - Physical Exam General Appearance: other (intubated, on 40% FIO2, levophed @ 1) EENT: ET tube Neck: other (RIJ HD cath c/d/i) Respiratory: lungs clear (ant bilat) Cardiac/Chest: regular rate, rhythm Abdomen: distended, other (ostomy, wound dressing c/d/i) Extremities: other (+edema bilat LE) Neuro/Psych: other (sedated) ICD10 Worksheet Patient Problems: Problems Problem Status Onset Atrial fibrillation Acute Diverticulitis Acute
[2017-01-31] MEDS: CHLORHEXIDINE GLUCONATE 15 ML UDL PO SCH ×2 (08:15→21:39)
[2017-01-31] MEDS: PANTOPRAZOLE SODIUM 40 MG in NS 100 ML IV SCH ×2 (08:29→21:39)
--- NOTE | 2017-01-31 08:54 | PDINTPN ---
Tubing Assembler Progress Note Assessment/Plan: Assessment/plan : * Peritonitis following sigmoid resection complicated by anastamotic leak. Blood cultures are currently growing a GNR, and she is being treated with ertapenem. -antibiotics per Infectious Disease * Retroperitoneal bleed-status post aggressive transfusion. Continues to have ongoing bleeding requiring aggressive transfusion. -will follow hemoglobin hematocrit closely and transfuse appropriately -status post repeat IR embolization. -hemoglobin and hematocrit are stable from yesterday * Shock-continues on minimal pressors -will attempt to wean off today * GI bleed-follow H and H closely * Elevated blood sugars secondary to TPN-improved * Coagulopathy-resolved * Afib-back in normal sinus rhythm, amiodarone on hold * Respiratory failure with hypoxemia: Currently stable on mechanical ventilation. FiO2 is at 40%. 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 Aneuric -on CRRT * Transaminitis - continues to improve slowly * Anemia- hemoglobin and hematocrit stable. * Nutrition: TPN started 40 minutes of critical care time spent with patient Case discussed with family, nursing, RT Subjective: Sedated on mechanical ventilation. Objective: Vital Signs Temp Pulse Resp BP Pulse Ox 35 C L 73 25 H 122/53 H 99 01/31/17 08:00 01/31/17 08:00 01/31/17 08:00 01/31/17 08:00 01/31/17 08:00 Microbiology 01/25/17 09:50 Blood Culture - Final Blood 01/25/17 06:50 Blood Culture - Final Blood Laboratory Results 01/31/17 04:10 01/31/17 04:10 01/30/17 01/31/17 02/01/17 05:59 05:59 05:59 Intake Total 2180 2937 Output Total 1253 2522 Balance 927 415 PT 18.8 SEC (12.0-15.0) H 01/29/17 13:45 INR 1.57 (0.83-1.16) H 01/29/17 13:45 Chest [id number] by myself. Endotracheal tube in good position no change overall - Time Spent With Patient Time Spent With Patient: 40 minutes of critical care time Physical Exam - Physical Exam General Appearance: No alert (Sedated) EENT: PERRL/EOMI, ET tube Neck: non-tender, supple Respiratory: decreased breath sounds, crackles (Few), No wheezing Cardiac/Chest: normal peripheral pulses, regular rate, rhythm Peripheral Pulses: 2+: carotid (R), carotid (L), femoral (R), femoral (L), dorsalis-pedis (R), dorsalis-pedis (L) Abdomen: normal bowel sounds, non-tender, soft Pelvic Exam: deferred Rectal: deferred Skin: normal color, warm/dry Neuro/Psych: No alert ICD10 Worksheet Patient Problems: Problems Problem Status Onset Atrial fibrillation Acute Diverticulitis Acute
[2017-01-31] MEDS: ALBUTEROL 200 PUFFS/18 GM MDI IH SCH ×4 (09:35→20:00)
--- NOTE | 2017-01-31 09:43 | SOAPPROG ---
SOAP Progress Note Assessment/Plan: Assessment: Stable to improving, cont to wean vent. Plan: 01/26/17 10:12 01/27/17 08:53 01/28/17 13:28 01/29/17 14:42 01/30/17 14:32 01/31/17 09:42 Subjective: No events Objective: Vital Signs Temp Pulse Resp BP Pulse Ox 35 C L 72 27 H 119/50 L 99 01/31/17 08:50 01/31/17 08:50 01/31/17 08:50 01/31/17 08:50 01/31/17 08:50 Microbiology 01/25/17 09:50 Blood Culture - Final Blood 01/25/17 06:50 Blood Culture - Final Blood Laboratory Results 01/31/17 04:10 01/31/17 04:10 01/30/17 01/31/17 02/01/17 05:59 05:59 05:59 Intake Total 2180 2937 Output Total 1253 2522 Balance 927 415 PT 18.8 SEC (12.0-15.0) H 01/29/17 13:45 INR 1.57 (0.83-1.16) H 01/29/17 13:45 Intubated, sedated Abd sl distended, NTTP Inc without erythema Ostomy viable ICD10 Worksheet Patient Problems: Problems Problem Status Onset Atrial fibrillation Acute Diverticulitis Acute - ICD10 Problem Qualifiers (1) Diverticulitis Qualifiers: Diverticulitis site: D Diverticulitis bleeding: D Diverticulitis complication: D
[2017-01-31] MEDS: PROPOFOL/EMULSION 100 ML IV SCH ×2 (09:44→21:39)
[2017-01-31 10:12] LABS: INR 1.25 (0.83-1.16); PROTIME(PATIENT) 15.7 SEC (12.0-15.0)
[2017-01-31 10:13] LABS: ANION GAP 9 mEq/L (8-16); APTT 32.8 SEC (23.0-38.0); CALCIUM 7.3 mg/dL (8.5-10.4); CARBON DIOXIDE 23 mEq/l (22-31); CHLORIDE 104 mEq/L (97-110); CREATININE 0.8 mg/dL (0.6-1.0); GLOMERULAR FILTRATION RATE > 60; GLUCOSE 137 mg/dL (70-100); POTASSIUM 3.6 mEq/L (3.5-5.2); SODIUM 136 mEq/L (134-144)
[2017-01-31] MEDS: POTASSIUM Cl (KCl) 50 ML IV PRN ×2 (10:50→12:43)
--- NOTE | 2017-01-31 11:14 | HOSPPROG ---
Hospitalist Progress Note Assessment/Plan: #Oliguric ARF: due PEA arrest, IV contrast. CRRT. May change to HD Wednesday if hemodynamically stable. Goal -50cc/hr #Retroperitoneal bleed: sp IR embolization. Repeat embolization 01/29. Trending H /H. #Acute hypoxemic resp failure: will trial extubation tomorrow to allow for more fluid off with CRRT #Polymicrobial peritonitis: sigmoid resection complicated by anastomotic leak. Completed 3 weeks Zosyn 01/28 #Bacteroides bacteremia: abx as above #PEA arrest: 01/25 likely due to hypovolemia/hypothermia. Cardiology consulted. Echo without LV dysfunction or wall motion abnormality #HAP: s/p bactrim #Leukocytosis: trending down. Stress-response to bleed? Remains afebrile. s/p abx. #Acute blood loss anemia: due to retroperitoneal bleed. Plan as above #Septic shock: still requires low-dose Levo #Metabolic acidosis: resolved. #Diet: TPN #DVT ppx: SCDs #Disp: warrant inpatient admission given ARF, shock. Cont CRRT, pressors Subjective: no acute events Objective: Vital Signs Temp Pulse Resp BP Pulse Ox 35.5 C L 81 24 H 116/50 L 99 01/31/17 11:00 01/31/17 11:00 01/31/17 11:00 01/31/17 11:00 01/31/17 11:00 Microbiology 01/25/17 09:50 Blood Culture - Final Blood 01/25/17 06:50 Blood Culture - Final Blood Laboratory Results 01/31/17 04:10 01/31/17 09:50 01/30/17 01/31/17 02/01/17 05:59 05:59 05:59 Intake Total 2180 2937 Output Total 1253 2522 Balance 927 415 PT 15.7 SEC (12.0-15.0) H 01/31/17 09:50 INR 1.25 (0.83-1.16) H 01/31/17 09:50 - Physical Exam Constitutional: obese, other (sedated) Eyes: PERRL Ears, Nose, Mouth, Throat: moist mucous membranes Cardiovascular: irregularly irregular Respiratory: no respiratory distress Gastrointestinal: other (ostomy, surgical sites dressed C/D/I) Genitourinary: feldman in urethra Skin: warm Psychiatric: other (sedated) ICD10 Worksheet Patient Problems: Problems Problem Status Onset Atrial fibrillation Acute Diverticulitis Acute
[2017-01-31 12:20] LABS: HEMATOCRIT 28.8 % (38.0-47.0)
[2017-01-31 15:54] LABS: IONIZED CALCIUM 1.13 MMOL/L (1.12-1.30)
[2017-01-31 16:21] LABS: ANION GAP 10 mEq/L (8-16); CALCIUM 7.4 mg/dL (8.5-10.4); CARBON DIOXIDE 23 mEq/l (22-31); CHLORIDE 104 mEq/L (97-110); CREATININE 0.8 mg/dL (0.6-1.0); GLOMERULAR FILTRATION RATE > 60; GLUCOSE 105 mg/dL (70-100); MAGNESIUM 2.1 mg/dL (1.6-2.3); POTASSIUM 4.4 mEq/L (3.5-5.2); SODIUM 137 mEq/L (134-144)
[2017-01-31] MEDS: TPN 1 EA BAG IV SCH (21:30)
[2017-01-31 22:15] LABS: IONIZED CALCIUM 1.06 MMOL/L (1.12-1.30)
[2017-01-31 22:31] LABS: ANION GAP 8 mEq/L (8-16); CALCIUM 7.6 mg/dL (8.5-10.4); CARBON DIOXIDE 25 mEq/l (22-31); CHLORIDE 104 mEq/L (97-110); CREATININE 0.7 mg/dL (0.6-1.0); GLOMERULAR FILTRATION RATE > 60; GLUCOSE 102 mg/dL (70-100); MAGNESIUM 2.2 mg/dL (1.6-2.3); POTASSIUM 4.1 mEq/L (3.5-5.2); SODIUM 137 mEq/L (134-144)
[2017-02-01 00:12] LABS: HEMATOCRIT 29.2 % (38.0-47.0); HEMOGLOBIN 9.7 g/dL (12.6-16.3)
[2017-02-01] MEDS: BGK 4/2.5 PRISMASATE 5,000 ML DIAL SCH ×2 (03:00→04:03)
[2017-02-01 04:59] LABS: IONIZED CALCIUM 1.08 MMOL/L (1.12-1.30)
[2017-02-01 05:11] LABS: HEMATOCRIT 29.2 % (38.0-47.0); HEMOGLOBIN 9.7 g/dL (12.6-16.3); LIPEMIA HEMOLYSIS FLAG 80 (0-99); MEAN CELL HEMOGLOBIN 30.4 pg (27.9-34.1); MEAN CELL HEMOGLOBIN CONCENTR. 33.2 g/dL (32.4-36.7); MEAN CELL VOLUME 91.5 fL (81.5-99.8); PLATELET CLUMPS FLAG 0 (0-99); RED BLOOD CELL COUNT 3.19 10^6/uL (4.18-5.33)
[2017-02-01 05:15] LABS: ANION GAP 7 mEq/L (8-16); CALCIUM 7.8 mg/dL (8.5-10.4); CARBON DIOXIDE 25 mEq/l (22-31); CHLORIDE 106 mEq/L (97-110); CREATININE 0.8 mg/dL (0.6-1.0); GLOMERULAR FILTRATION RATE > 60; GLUCOSE 95 mg/dL (70-100); MAGNESIUM 2.2 mg/dL (1.6-2.3); SODIUM 138 mEq/L (134-144); TRIGLYCERIDE 217 mg/dL (35-135)
[2017-02-01 05:18] LABS: INR 1.21 (0.83-1.16); PROTIME(PATIENT) 15.3 SEC (12.0-15.0)
[2017-02-01 05:19] LABS: APTT 35.2 SEC (23.0-38.0); PLATELET COUNT 41 10^3/uL (150-400); RED CELL DISTRIBUTION WIDTH 20.5 % (11.5-15.2)
[2017-02-01 05:54] LABS: PLATELET ESTIMATE DECREASED (ADEQ)
[2017-02-01] MEDS: PROPOFOL/EMULSION 100 ML IV SCH (08:02)
[2017-02-01] MEDS: ALBUTEROL 200 PUFFS/18 GM MDI IH SCH ×4 (11:21→20:20)
--- NOTE | 2017-02-01 11:46 | SOAPPROG ---
SOAP Progress Note Assessment/Plan: Assessment: 1. Oliguric NANCY Remains on some pressors. CC has directed to treat with albumin. Remains oliguric. Clotted machine. LFTs and coags better. Convert to citrate regional anticoagulation. Follow Ca levels. 2. Fevers She has developed new fevers and tachycardia. She is being recultured and followed closely. ID directly care 3. s/p RP bleed Stabilized following IR procedure 4. Thrombocytopenia Persists, follow. Subjective: Intubated, sedated Objective: Vital Signs Temp Pulse Resp BP Pulse Ox 38.1 C 124 H 29 H 129/53 H 95 02/01/17 10:00 02/01/17 10:00 02/01/17 10:00 02/01/17 10:00 02/01/17 10:00 Laboratory Results 02/01/17 04:45 02/01/17 04:45 01/31/17 02/01/17 02/02/17 05:59 05:59 05:59 Intake Total 2937 3998 Output Total 2522 5482 Balance 415 -1484 PT 15.3 SEC (12.0-15.0) H 02/01/17 04:45 INR 1.21 (0.83-1.16) H 02/01/17 04:45 Physical Exam - Physical Exam General Appearance: other (sedated) Neck: other (Lines in place) Respiratory: lungs clear Cardiac/Chest: tachycardia Abdomen: soft Pelvic Exam: other (feldman in place) Extremities: pedal edema (and 1-2 + hip edema) ICD10 Worksheet Patient Problems: Problems Problem Status Onset Atrial fibrillation Acute Diverticulitis Acute
--- NOTE | 2017-02-01 11:56 | SOAPPROG ---
SOAP Progress Note Assessment/Plan: Assessment: Tachycardia, follow VS and consider imaging if it persists Plan: 01/26/17 10:12 01/27/17 08:53 01/28/17 13:28 01/29/17 14:42 01/30/17 14:32 01/31/17 09:42 02/01/17 11:55 Subjective: Some tachycardia overnight Objective: Vital Signs Temp Pulse Resp BP Pulse Ox 38.1 C 124 H 29 H 129/53 H 95 02/01/17 10:00 02/01/17 10:00 02/01/17 10:00 02/01/17 10:00 02/01/17 10:00 Laboratory Results 02/01/17 04:45 02/01/17 04:45 01/31/17 02/01/17 02/02/17 05:59 05:59 05:59 Intake Total 2937 3998 Output Total 2522 5482 Balance 415 -1484 PT 15.3 SEC (12.0-15.0) H 02/01/17 04:45 INR 1.21 (0.83-1.16) H 02/01/17 04:45 Intubated, sedated Abd sl distended, NTTP Inc without erythema Ostomy viable ICD10 Worksheet Patient Problems: Problems Problem Status Onset Atrial fibrillation Acute Diverticulitis Acute - ICD10 Problem Qualifiers (1) Diverticulitis Qualifiers: Diverticulitis site: D Diverticulitis bleeding: D Diverticulitis complication: D
[2017-02-01] MEDS: CHLORHEXIDINE GLUCONATE 15 ML UDL PO SCH ×2 (12:00→21:05)
[2017-02-01] MEDS ORDERED: CALCIUM CHLORIDE 5.7 GM in NS 1,000 ML IV SCH (12:00)
[2017-02-01] MEDS ORDERED: NS 1,000 ML MISC SCH (12:00)
[2017-02-01] MEDS ORDERED: CALCIUM GLUCONATE 16.67 GM in NS 1,000 ML IV SCH (12:00)
[2017-02-01 12:28] LABS: COLOR YELLOW; LEUKOCYTE ESTERASE,URINE 2+ (NEGATIVE); NITRITE,URINE NEGATIVE (NEGATIVE)
[2017-02-01 12:33] LABS: BACTERIA 4+ /hpf (NONE SEEN); MUCUS 1+ /lpf (NONE-1+); RBC,URINE 50-182 /hpf (0-3)
[2017-02-01] MEDS: REPL FLUID TYPE D RXY 1 EA, SODIUM CITRATE 4% 375 ML, SODIUM Cl 3% 519 ML in WATER FOR ... DIAL SCH ×3 (12:45→22:09)
[2017-02-01] MEDS: B22GK4/0 PRISMASATE 5,000 ML DIAL SCH ×3 (12:45→22:54)
[2017-02-01] MEDS: CALCIUM GLUCONATE 16.67 GM in NS 1,000 ML IV SCH ×2 (13:30→21:45)
[2017-02-01 15:16] LABS: HEMATOCRIT 27.1 % (38.0-47.0); HEMOGLOBIN 8.8 g/dL (12.6-16.3)
--- NOTE | 2017-02-01 15:16 | HOSPPROG ---
Hospitalist Progress Note Assessment/Plan: #Fever: UA, CXR, peripheral PICC/HD catheter cultures. Dr. Galindo will reevaluate. Abd source possible, consider imaging if persistent #Oliguric ARF: CRRT clotted. Renal to evaluate. Change to HD when hemodynamically stable. #Retroperitoneal bleed: H/H stable. Repeat embolization 01/29. #Acute hypoxemic resp failure: will trial extubation tomorrow to allow for more fluid off with CRRT #Polymicrobial peritonitis: sigmoid resection complicated by anastomotic leak. Completed 3 weeks Zosyn 01/28 #Bacteroides bacteremia: abx as above #Thrombocytopenia: monitor closely #PEA arrest: 01/25 likely due to hypovolemia/hypothermia. Cardiology consulted. Echo without LV dysfunction or wall motion abnormality #HAP: s/p bactrim #Leukocytosis: trending down. Fever today; plan as above #Acute blood loss anemia: due to retroperitoneal bleed. Plan as above #Septic shock: still requires low-dose Levo #Metabolic acidosis: resolved. #Diet: TPN #DVT ppx: SCDs #Disp: warrant inpatient admission given ARF, shock. Cont CRRT, pressors Subjective: fever to 38.2 Objective: Vital Signs Temp Pulse Resp BP Pulse Ox 38.1 C 112 H 27 H 129/53 H 98 02/01/17 10:00 02/01/17 12:15 02/01/17 12:15 02/01/17 10:00 02/01/17 12:15 Microbiology 01/27/17 12:20 Blood Culture - Final Blood 01/27/17 12:21 Blood Culture - Final Blood 01/27/17 12:21 Blood Culture - Final Blood Laboratory Results 02/01/17 04:45 02/01/17 04:45 01/31/17 02/01/17 02/02/17 05:59 05:59 05:59 Intake Total 2937 3998 Output Total 2522 5482 Balance 415 -1484 PT 15.3 SEC (12.0-15.0) H 02/01/17 04:45 INR 1.21 (0.83-1.16) H 02/01/17 04:45 - Physical Exam Constitutional: obese, other (sedated) Eyes: PERRL Ears, Nose, Mouth, Throat: moist mucous membranes Cardiovascular: regular rate and rhythym, edema (+2 edema LEs) Respiratory: no respiratory distress, no rales or rhonchi Gastrointestinal: normoactive bowel sounds, soft, non-tender abdomen, other ( surgical incisions packed with no overt purulence or surrounding cellulitis) Genitourinary: other (feldman removed) Musculoskeletal: other (sedated) ICD10 Worksheet Patient Problems: Problems Problem Status Onset Atrial fibrillation Acute Diverticulitis Acute
--- NOTE | 2017-02-01 16:05 | PCMIDPN ---
Assessment/Plan: Assessment/Plan: * Polymicrobial peritonitis secondary to anastomotic leak status post washout: completed 3 week course of Zosyn on 01/28/2017. * Bacteroides bacteremia: Secondary to peritonitis and completed course of Zosyn as outlined above. * Fever: New onset fever with broad diagnostic considerations. May be related to breakdown of blood products associated with hematoma. intra-abdominal process or line related infection also of consideration. Repeat cultures are now pending for further assessment. Favor continued observation off antibiotics pending cultures and clinical course unless shows clinical deterioration. If fever persists, will need repeat CT scan of abdomen and pelvis to further assess. Findings and plan reviewed with Dr. Terrazas and patient's 02/01/17 15:51 02/01/17 17:40 Subjective: Asked to re-evaluate patient for fever after following previously for Bacteroides bacteremia, peritonitis and possible stenotrophomonas pneumonia. Interim findings reviewed after Dr. Hernandez's last note dated 01/28/2017. Objective: Vital Signs Temp Pulse Resp BP Pulse Ox 38.1 C 112 H 27 H 129/53 H 98 02/01/17 10:00 02/01/17 12:15 02/01/17 12:15 02/01/17 10:00 02/01/17 12:15 Microbiology 01/27/17 12:20 Blood Culture - Final Blood 01/27/17 12:21 Blood Culture - Final Blood 01/27/17 12:21 Blood Culture - Final Blood Laboratory Results 02/01/17 14:45 02/01/17 04:45 01/31/17 02/01/17 02/02/17 05:59 05:59 05:59 Intake Total 2937 3998 Output Total 8906 8374 Balance 415 -1484 temperature maximum 38.6 (Documented at 38.1) No antibiotic therapy UA 1-3 white blood cells, 50-182 red blood cells - Physical Exam General Appearance: non-toxic, other ( intubated sedated) EENT: scleral icterus, ET Tube, No conjunctival petechiae Respiratory: coarse breath sounds Neck: supple Cardiac/Chest: tachycardia Abdomen: non-tender, other ( lateral incision with some superficial necrosis; distal incision with some bloody output), No distended ICD10 Worksheet Patient Problems: Problems Problem Status Onset Atrial fibrillation Acute Diverticulitis Acute
--- NOTE | 2017-02-01 16:08 | PDINTPN ---
Incident Handler Progress Note Assessment/Plan: Assessment/plan: 71 F with diverticulitis admitted 01/04 with abdominal pain and had robotic sigmoid hemicolectomy. There were no obvious complications and she was sent to the floor, but developed increasing pain and somnolence so was transferred to the ICU 01/[address] revealing an 11 cm pelvic hematoma and extraluminal air. She returned to the OR for evacuation of the hematoma and creation of an ileostomy. She was extubated the next morning, but developed atrial fibrillation , which she may have had twice in previous years (family was uncertain). She has remained hospitalized since with multiple complications and MOF. I am resuming critical care responsibilities after a 4-week hiatus * Encephalopathy presumed to be related to multiorgan failure and multiple complications. no evidence of CVA * Respiratory failure with hypoxemia- initially related to anastamotic leak then pain control, ineffective respirations and possibly pulmonary edema 2/2 NANCY and afib. She later developed HAP with pseudomonas in her Bcx and was treated with Abx for several weeks. She was first re-intubated 01/09, followed by eventual extubation, but again re-intubated 01/25/17 with code blue. Her vent requirements are minimal but that puts her at vent day #7 (ignoring previous events). With an improved mental status and minimizing sedation as much as tolerated, we should attempt weans more aggressively. I would consider trach if her weans were poor in the next couple of days, and mentioned this possibility to her son. * Hypotension- seems volume related to me (labile with movement). Would favor keeping her even with CRRT/HD and trying bolus of albumin if she drops again. No clear evidence of septic or cardiogenic shock at the moment. * Afib with RVR. She was initially treated with amiodarone, followed by a brief trial of esmolol (dropped BP). She got one dose of Digoxin on 01/08, but worsening renal function made that a less desirable choice. Diltiazem was added 01/09 with mild success- HR 140-160 and no drop in BP. She remains in sinus tachycardia today after briefly requiring levophed for hypotension earlier today. She is also febrile which could easily drive her ST. Cards following and rate control with oral amiodarone and metoprolol prn * Peritonitis following sigmoid resection complicated by anastamotic leak. Was followed by ID when blood cultures grew S. Maltophilia and treated with Bactrim. New fever today so agree with re-panculture to include fungal cultures (on TPN). May need to reconsult ID. 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 She remains dialysis dependent (either CRRT or HD) so prognosis is poor from this perspective IMHO. Defer to renal for CRRT versus HD , but prefer even volume as above. * Transaminitis- she had a small increase in AST/ALT likely 2/2 decreased perfusion early in her course, but a substantial increase after her code. Continue periodic checks. * Retroperitoneal bleed 2/2?- she has been embolized twice- 01/26 and 01/29 and transfused last on 01/29 with stable Hct. No current planned intervention indicated as best as I can tell. Should resolve. Hold anticoagulation and use SCDs for VTE prophylaxis. * Thrombocytopenia- slowly falling for unclear reasons. No heparins and send HIT * Code blue 01/25/17 from PEA presumably related to hypovolemia and possibly hypoxia. CPR time not fully clear to me, but this effects prognosis obviously. Will perform more detailed exam once sedation reduced * Nutrition- currently on TPN, but not clear why no enteral feeding. Will discuss with surgery and ICU team. * ICU prophylaxis- SCDs and pantoprazole * Critical care time at least 75 minutes separate from procedures for a complex patient with evidence of multisystem failure Objective: Vital Signs Temp Pulse Resp BP Pulse Ox 38.1 C 112 H 27 H 129/53 H 98 02/01/17 10:00 02/01/17 12:15 02/01/17 12:15 02/01/17 10:00 02/01/17 12:15 Microbiology 01/27/17 12:20 Blood Culture - Final Blood 01/27/17 12:21 Blood Culture - Final Blood 01/27/17 12:21 Blood Culture - Final Blood Laboratory Results 02/01/17 14:45 02/01/17 04:45 01/31/17 02/01/17 02/02/17 05:59 05:59 05:59 Intake Total 2937 3998 Output Total 2522 5482 Balance 415 -1484 PT 15.3 SEC (12.0-15.0) H 05/15/17 04:45 INR 1.21 (0.83-1.16) H 02/01/17 04:45 Physical Exam - Physical Exam General Appearance: obtunded, obese EENT: PERRL/EOMI Neck: full range of motion, supple Respiratory: lungs clear, decreased breath sounds, No respiratory distress, No rales Cardiac/Chest: regular rate, rhythm, No edema Abdomen: non-tender, soft, No distended Skin: normal color, warm/dry Lymphatic: no adenopathy Extremities: No pedal edema Neuro/Psych: cognition abnormalities, other (non focal neuro exam) ICD10 Worksheet Patient Problems: Problems Problem Status Onset Atrial fibrillation Acute Diverticulitis Acute
[2017-02-01] MEDS: SODIUM CITRATE 4% 5 ML in SYRINGE 0 ML DIAL PRN (18:15)
[2017-02-01 18:39] LABS: IONIZED CALCIUM 1.05 MMOL/L (1.12-1.30)
[2017-02-01] MEDS: PANTOPRAZOLE SODIUM 40 MG in NS 100 ML IV SCH (18:45)
[2017-02-01 19:01] LABS: ANION GAP 13 mEq/L (8-16); CALCIUM 7.2 mg/dL (8.5-10.4); CARBON DIOXIDE 16 mEq/l (22-31); CHLORIDE 92 mEq/L (97-110); CREATININE 1.3 mg/dL (0.6-1.0); GLOMERULAR FILTRATION RATE 40; MAGNESIUM 1.6 mg/dL (1.6-2.3); POTASSIUM 3.4 mEq/L (3.5-5.2); SODIUM 121 mEq/L (134-144)
[2017-02-01 19:17] LABS: GLUCOSE 1077 mg/dL (70-100)
[2017-02-01 20:06] LABS: IONIZED CALCIUM 1.14 MMOL/L (1.12-1.30)
[2017-02-01] MEDS: NOREPINEPHRINE/NS 500 ML IV SCH (20:13)
[2017-02-01] MEDS: TPN 1 EA BAG IV SCH (20:13)
[2017-02-01 20:23] LABS: ANION GAP 9 mEq/L (8-16); CALCIUM 8.4 mg/dL (8.5-10.4); CARBON DIOXIDE 23 mEq/l (22-31); CHLORIDE 102 mEq/L (97-110); CREATININE 1.1 mg/dL (0.6-1.0); GLOMERULAR FILTRATION RATE 49; GLUCOSE 90 mg/dL (70-100); MAGNESIUM 1.9 mg/dL (1.6-2.3); POTASSIUM 3.8 mEq/L (3.5-5.2); SODIUM 134 mEq/L (134-144)
[2017-02-01] MEDS ORDERED: VANCOMYCIN HCL/NORMAL SALINE 250 ML IV ONE (20:30)
[2017-02-02] MEDS: ALBUTEROL 200 PUFFS/18 GM MDI IH SCH ×5 (00:01→21:07)
[2017-02-02] MEDS: NS 1,000 ML MISC SCH ×2 (00:06→04:38)
[2017-02-02] MEDS: REPL FLUID TYPE D CAPS 1 EA in WATER FOR INJECTION,STERILE 4,000 ML DIAL SCH ×7 (00:06→19:40)
[2017-02-02 00:39] LABS: IONIZED CALCIUM 0.95 MMOL/L (1.12-1.30)
[2017-02-02] MEDS: PROPOFOL/EMULSION 100 ML IV SCH ×5 (00:40→15:50)
[2017-02-02 00:43] LABS: HEMATOCRIT 29.8 % (38.0-47.0); HEMOGLOBIN 9.7 g/dL (12.6-16.3)
[2017-02-02 01:21] LABS: ANION GAP 14 mEq/L (8-16); CALCIUM 8.9 mg/dL (8.5-10.4); CARBON DIOXIDE 19 mEq/l (22-31); CHLORIDE 105 mEq/L (97-110); GLOMERULAR FILTRATION RATE 55; GLUCOSE 100 mg/dL (70-100); MAGNESIUM 1.7 mg/dL (1.6-2.3); POTASSIUM 3.5 mEq/L (3.5-5.2); SODIUM 138 mEq/L (134-144)
[2017-02-02] MEDS: MAGNESIUM SULF 2 GM/WATER 50 ML IV PRN ×2 (02:04→15:25)
[2017-02-02] MEDS: POTASSIUM Cl (KCl) 50 ML IV PRN ×4 (02:05→22:21)
[2017-02-02] MEDS: SODIUM PHOS 20 MM in D5W 250 ML IV PRN ×2 (02:20→17:24)
[2017-02-02] MEDS: B22GK4/0 PRISMASATE 5,000 ML DIAL SCH ×7 (02:30→20:53)
[2017-02-02] MEDS: CALCIUM GLUCONATE 16.67 GM in NS 1,000 ML IV SCH ×3 (04:10→16:25)
[2017-02-02 06:14] LABS: ABSOLUTE NRBC COUNT 0.04 10^3/uL (0-0.01); ADD DIFF? YES; ADD SCAN? NO; ATYPICAL LYMPHOCYTE FLAG 30 (0-99); FRAGMENT RBC FLAG 0 (0-99); HEMATOCRIT 29.8 % (38.0-47.0); HEMOGLOBIN 9.7 g/dL (12.6-16.3); LEFT SHIFT FLG 70 (0-99); LIPEMIA HEMOLYSIS FLAG 80 (0-99); MEAN CELL HEMOGLOBIN CONCENTR. 32.6 g/dL (32.4-36.7); MEAN CELL VOLUME 92.3 fL (81.5-99.8); MEAN PLATELET VOLUME 10.9 fL (8.7-11.7); NRBC-AUTO% 0.3 % (0.0-0.2); PLATELET CLUMPS FLAG 0 (0-99); RED BLOOD CELL COUNT 3.23 10^6/uL (4.18-5.33)
[2017-02-02 06:16] LABS: IONIZED CALCIUM 0.95 MMOL/L (1.12-1.30)
[2017-02-02 06:21] LABS: ADD MORPH? NO; PLATELET COUNT 33 10^3/uL (150-400); RED CELL DISTRIBUTION WIDTH 21.7 % (11.5-15.2)
[2017-02-02 06:25] LABS: INR 1.21 (0.83-1.16); PROTIME(PATIENT) 15.3 SEC (12.0-15.0)
[2017-02-02 06:26] LABS: APTT 35.9 SEC (23.0-38.0)
[2017-02-02 07:07] LABS: PLATELET ESTIMATE DECREASED (ADEQ)
[2017-02-02 07:08] LABS: MICROCYTES 1+
[2017-02-02 07:09] LABS: POLYCHROMASIA 1+
[2017-02-02 07:15] LABS: ALANINE AMINOTRANSFERASE 512 IU/L (9-52); ALBUMIN 2.6 g/dL (3.5-5.0); ALKALINE PHOSPHATASE 243 IU/L (38-126); ANION GAP 14 mEq/L (8-16); ASPARTATE AMINOTRANSFERASE 145 IU/L (14-46); CALCIUM 8.7 mg/dL (8.5-10.4); CARBON DIOXIDE 19 mEq/l (22-31); CHLORIDE 104 mEq/L (97-110); CREATININE 0.8 mg/dL (0.6-1.0); GLOMERULAR FILTRATION RATE > 60; GLUCOSE 111 mg/dL (70-100); MAGNESIUM 1.8 mg/dL (1.6-2.3); POTASSIUM 3.7 mEq/L (3.5-5.2); SODIUM 137 mEq/L (134-144); TOTAL PROTEIN 5.8 g/dL (6.3-8.2)
[2017-02-02 07:40] LABS: BILIRUBIN-CONJUGATED 10.7 mg/dL (0.0-0.5); BILIRUBIN-UNCONJUGATED 1.3 mg/dL (0.0-1.1)
[2017-02-02] MEDS: PANTOPRAZOLE SODIUM 40 MG in NS 100 ML IV SCH (08:25)
[2017-02-02] MEDS: CHLORHEXIDINE GLUCONATE 15 ML UDL PO SCH ×2 (08:30→20:53)
--- NOTE | 2017-02-02 08:30 | PCMIDPN ---
Assessment/Plan: Assessment/Plan: 1. Fever: - Blood cx on two different dates have been collected.-ngtd on one, pending on the other so far -pt given a dose of vanco last evening. spoke with Rn - likely multifactorial -possible related to recent large retroperitoneal hematoma. -if ongoing fevers, may need f/u CT a/p at some point. -overall wbc improved, LFT improved. 2. Sepsis with Peritonitis secondary to anastomotic leak with bacteremia: - s/p Zosyn, last dose on 01/28/17 3. Possible HAP with stenotrophomonas: -s/p bactrim 4. Coag neg staph bacteremia: - in one set out of two. did have a central line at the time for which one set was supposed to be drawn from. -represents contaminant. no recurrent positive cx with above since then. Meds vanco x 1 given 02/01/17 at 2100 s/p zosyn, bactrim Subjective: afebrile this AM so far. spiking temps yesterday. intubated. sedation slightly down, and moving extremities per RN. On CRRT. Apparently there was some confusion as to whether the caps were off the dialysis lines or not yesterday evening and thus patient was given a dose of VAncomycin. Lisa taken out yesterday as wasn't having much urine output per RN. Apparently a urine sample collected after irrigation. Objective: Vital Signs Temp Pulse Resp BP Pulse Ox 36.3 C 65 20 110/62 100 02/02/17 00:00 02/02/17 07:00 02/02/17 07:00 02/02/17 07:00 02/02/17 07:00 Microbiology 01/27/17 12:20 Blood Culture - Final Blood 01/27/17 12:21 Blood Culture - Final Blood 01/27/17 12:21 Blood Culture - Final Blood Laboratory Results 02/02/17 06:02 02/02/17 06:02 02/01/17 02/02/17 02/03/17 05:59 05:59 05:59 Intake Total 3998 2947 Output Total 5482 1151 Balance -1484 1796 - Physical Exam General Appearance: other (intubated, lightly sedated) EENT: ET Tube Respiratory: coarse breath sounds (mild) Cardiac/Chest: regular rate, rhythm Extremities: No swelling Abdomen: normal bowel sounds, distended, other (colostomy. multiple abd wound, two moderate in depth with mild necrosis noted within. dressed wet to dry. another small wound with drainage noted, and lastly previous incisoin site noted with mild slough present. ) Skin: No rash ICD10 Worksheet Patient Problems: Problems Problem Status Onset Atrial fibrillation Acute Diverticulitis Acute
[2017-02-02] MEDS ORDERED: ALBUMIN 25% 100 ML SOLN IV ONE ×2 (08:48→12:33)
[2017-02-02] MEDS ORDERED: ALBUMIN 25% 100 ML IV ONE (09:08)
--- NOTE | 2017-02-02 09:45 | HOSPPROG ---
Hospitalist Progress Note Assessment/Plan: #Fever: UA, CXR, peripheral PICC/HD catheter cultures. Dr. Galindo will reevaluate. Abd source possible, consider imaging if persistent #Oliguric ARF: CRRT clotted. Renal to evaluate. Change to HD when hemodynamically stable. #Retroperitoneal bleed: H/H stable. Repeat embolization 01/29. #Acute hypoxemic resp failure: will trial extubation tomorrow to allow for more fluid off with CRRT #Polymicrobial peritonitis: sigmoid resection complicated by anastomotic leak. Completed 3 weeks Zosyn 01/28 #Bacteroides bacteremia: abx as above #Thrombocytopenia: monitor closely #PEA arrest: 01/25 likely due to hypovolemia/hypothermia. Cardiology consulted. Echo without LV dysfunction or wall motion abnormality #HAP: s/p bactrim #Leukocytosis: trending down. Fever today; plan as above #Acute blood loss anemia: due to retroperitoneal bleed. Plan as above #Septic shock: still requires low-dose Levo #Metabolic acidosis: resolved. #Diet: TPN #DVT ppx: SCDs #Disp: warrant inpatient admission given ARF, shock. Cont CRRT, pressors Subjective: no acute events Objective: Vital Signs Temp Pulse Resp BP Pulse Ox 36.3 C 68 20 110/62 99 02/02/17 00:00 02/02/17 08:29 02/02/17 08:29 02/02/17 07:00 02/02/17 08:29 Microbiology 01/27/17 12:20 Blood Culture - Final Blood 01/27/17 12:21 Blood Culture - Final Blood 01/27/17 12:21 Blood Culture - Final Blood Laboratory Results 02/02/17 06:02 02/02/17 06:02 02/01/17 02/02/17 02/03/17 05:59 05:59 05:59 Intake Total 3998 2947 Output Total 5482 1151 Balance -1484 1796 PT 15.3 SEC (12.0-15.0) H 02/02/17 06:02 INR 1.21 (0.83-1.16) H 02/02/17 06:02 - Physical Exam Constitutional: obese, other (sedated) Eyes: PERRL Ears, Nose, Mouth, Throat: moist mucous membranes, hearing normal Cardiovascular: regular rate and rhythym, no murmur, rub, or gallop Respiratory: no respiratory distress, no rales or rhonchi Gastrointestinal: soft, non-tender abdomen, other (surgical incisions packed, no overt drainage) Genitourinary: feldman in urethra Musculoskeletal: other (right HD catheter without signs infection) Neurologic: other ICD10 Worksheet Patient Problems: Problems Problem Status Onset Atrial fibrillation Acute Diverticulitis Acute
[2017-02-02 10:34] LABS: IONIZED CALCIUM 1.06 MMOL/L (1.12-1.30)
--- NOTE | 2017-02-02 10:57 | SOAPPROG ---
SOAP Progress Note Assessment/Plan: Assessment:Plan: ARF-anuric -on CRRT -will need to change to intermittent daily Hd once current bag of calcium runs out -I would prefer this rather than trying to run the CRRT on a non-citrate based regimen -remains edematous, on pressors -FiO2 40% -will keep UF rate at net zero to see if this allows discontinuation of pressors -follow response -change to intermittent daily Hd with first Hd tomorrow Access-stable Nutrition-on TPN Pulmonary-for CPAP weans -possible trach, depending on how that goes 02/02/17 11:00 Subjective: on vent and pressors Objective: Vital Signs Temp Pulse Resp BP Pulse Ox 36.3 C 68 20 110/62 99 02/02/17 00:00 02/02/17 08:29 02/02/17 08:29 02/02/17 07:00 02/02/17 08:29 Microbiology 01/27/17 12:20 Blood Culture - Final Blood 01/27/17 12:21 Blood Culture - Final Blood 01/27/17 12:21 Blood Culture - Final Blood Laboratory Results 02/02/17 06:02 02/01/17 02/02/17 02/03/17 05:59 05:59 05:59 Intake Total 3998 2947 Output Total 5482 1151 Balance -1484 1796 PT 15.3 SEC (12.0-15.0) H 02/02/17 06:02 INR 1.21 (0.83-1.16) H 02/02/17 06:02 Physical Exam - Physical Exam General Appearance: other (sedated) EENT: normal ENT inspection, ET tube Neck: normal inspection, other ( R IJ site looks fine) Respiratory: other (coarse breath sounds) Cardiac/Chest: regular rate, rhythm Abdomen: normal bowel sounds, other (ostomy) Skin: normal color Extremities: swelling (into thighs) ICD10 Worksheet Patient Problems: Problems Problem Status Onset Atrial fibrillation Acute Diverticulitis Acute
[2017-02-02 11:06] LABS: ANION GAP 15 mEq/L (8-16); CALCIUM 9.2 mg/dL (8.5-10.4); CARBON DIOXIDE 20 mEq/l (22-31); CHLORIDE 103 mEq/L (97-110); CREATININE 0.8 mg/dL (0.6-1.0); GLOMERULAR FILTRATION RATE > 60; GLUCOSE 109 mg/dL (70-100); MAGNESIUM 1.7 mg/dL (1.6-2.3); POTASSIUM 3.4 mEq/L (3.5-5.2); SODIUM 138 mEq/L (134-144)
[2017-02-02] MEDS: ALBUMIN 25% 100 ML IV PRN ×3 (12:30→21:07)
--- NOTE | 2017-02-02 12:42 | PDINTPN ---
Supervisor Film Processing Progress Note Assessment/Plan: Assessment/plan: 71 F with diverticulitis admitted 01/04 with abdominal pain and had robotic sigmoid hemicolectomy. There were no obvious complications and she was sent to the floor, but developed increasing pain and somnolence so was transferred to the ICU 01/[address] revealing an 11 cm pelvic hematoma and extraluminal air. She returned to the OR for evacuation of the hematoma and creation of an ileostomy. She was extubated the next morning, but developed atrial fibrillation , which she may have had twice in previous years (family was uncertain). She has remained hospitalized since with multiple complications and MOF. * Encephalopathy presumed to be related to multiorgan failure and multiple complications. no evidence of CVA. Improving daily per family. Discussed potential effects of code on this issue at length today. * Respiratory failure with hypoxemia- initially related to anastamotic leak then pain control, ineffective respirations and possibly pulmonary edema 2/2 NANCY and afib. She later developed HAP with pseudomonas in her Bcx and was treated with Abx for several weeks. She was first re-intubated 01/09, followed by eventual extubation, but again re-intubated 01/25/17 with code blue. Her vent requirements are minimal but that puts her at vent day #8 (ignoring previous events). With an improved mental status and minimizing sedation as much as tolerated, we will agressively wean today and tomorrow. I would consider trach if her weans were poor in the next couple of days, and mentioned this possibility to her son. * Hypotension- seems volume related to me (labile with movement). Continue keeping her even with CRRT/HD. She restarted levophed last pm, but it came off today with a single dose of albumin. * Afib with RVR. She was initially treated with amiodarone, followed by a brief trial of esmolol (dropped BP). She got one dose of Digoxin on 01/08, but worsening renal function made that a less desirable choice. Diltiazem was added 01/09 with mild success- HR 140-160 and no drop in BP. She remains in sinus tachycardia today after briefly requiring levophed for hypotension earlier today. She is also febrile which could easily drive her ST. Cards following and rate control with oral amiodarone and metoprolol prn * Peritonitis following sigmoid resection complicated by anastamotic leak. Afebrile and decreased wbc without intervention. Continue observation and fu cultures. 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 She remains dialysis dependent (either CRRT or HD) so prognosis is poor from this perspective IMHO. Defer to renal for CRRT versus HD , but prefer even volume as above. Prognosis from this perspective does not look good. Likely to require prison dialysis. Will discuss with renal possibility of tunnelled HD catheter * Transaminitis- she had a small increase in AST/ALT likely 2/2 decreased perfusion early in her course, but a substantial increase after her code. Continue periodic checks. * Retroperitoneal bleed 2/2?- she has been embolized twice- 01/26 and 01/29 and transfused last on 01/29 with stable Hct. Hold anticoagulation and use SCDs for VTE prophylaxis. Hct remains stable and no further blood transfusions needed. Her BP issues are currently not likely related to bleeding * Thrombocytopenia- slowly falling for unclear reasons. No heparins and send HIT. Remains low. Review meds. Discussed with IM. * Code blue 01/25/17 from PEA presumably related to hypovolemia and possibly hypoxia. CPR time not fully clear to me, but this effects prognosis obviously. Will perform more detailed exam once sedation reduced * Nutrition- currently on TPN, but not clear why no enteral feeding. Plan to start tube feeds today * ICU prophylaxis- SCDs and pantoprazole * Critical care time at least 45 minutes separate from procedures for a complex patient with evidence of multisystem failure 02/02/17 12:37 Objective: Vital Signs Temp Pulse Resp BP Pulse Ox 36.3 C 68 20 110/62 99 02/02/17 00:00 02/02/17 08:29 02/02/17 08:29 02/02/17 07:00 02/02/17 08:29 Microbiology 01/27/17 12:20 Blood Culture - Final Blood 01/27/17 12:21 Blood Culture - Final Blood 01/27/17 12:21 Blood Culture - Final Blood Laboratory Results 02/02/17 06:02 02/02/17 10:15 02/01/17 02/02/17 02/03/17 05:59 05:59 05:59 Intake Total 3998 2947 Output Total 5482 1151 Balance -1484 1796 PT 15.3 SEC (12.0-15.0) H 02/02/17 06:02 INR 1.21 (0.83-1.16) H 02/02/17 06:02 Physical Exam - Physical Exam General Appearance: obese, other (sedated on vent) EENT: PERRL/EOMI Neck: full range of motion, supple Respiratory: lungs clear, decreased breath sounds, No rales, No rhonchi Cardiac/Chest: regular rate, rhythm, edema Abdomen: non-tender, soft, No distended Skin: normal color, warm/dry, No cyanosis Lymphatic: no adenopathy Extremities: pedal edema Neuro/Psych: cognition abnormalities ICD10 Worksheet Patient Problems: Problems Problem Status Onset Atrial fibrillation Acute Diverticulitis Acute
[2017-02-02 14:37] LABS: HEMATOCRIT 24.6 % (38.0-47.0); HEMOGLOBIN 8.2 g/dL (12.6-16.3)
[2017-02-02 14:44] LABS: IONIZED CALCIUM 1.07 MMOL/L (1.12-1.30)
[2017-02-02 14:59] LABS: ANION GAP 13 mEq/L (8-16); CALCIUM 9.5 mg/dL (8.5-10.4); CARBON DIOXIDE 21 mEq/l (22-31); CHLORIDE 102 mEq/L (97-110); CREATININE 0.7 mg/dL (0.6-1.0); GLOMERULAR FILTRATION RATE > 60; GLUCOSE 94 mg/dL (70-100); MAGNESIUM 1.5 mg/dL (1.6-2.3); POTASSIUM 3.8 mEq/L (3.5-5.2); SODIUM 136 mEq/L (134-144)
--- NOTE | 2017-02-02 17:13 | SOAPPROG ---
SOAP Progress Note Assessment/Plan: Assessment: Stable. Cont to wean vent/pressors. Plan: 01/26/17 10:12 01/27/17 08:53 01/28/17 13:28 01/29/17 14:42 01/30/17 14:32 01/31/17 09:42 02/01/17 11:55 02/02/17 17:12 Subjective: No events, fever resolved. Objective: Vital Signs Temp Pulse Resp BP Pulse Ox 35.4 C L 89 28 H 126/99 H 100 02/02/17 17:00 02/02/17 17:00 02/02/17 17:00 02/02/17 17:00 02/02/17 17:00 Microbiology 01/27/17 12:20 Blood Culture - Final Blood 01/27/17 12:21 Blood Culture - Final Blood 01/27/17 12:21 Blood Culture - Final Blood Laboratory Results 02/02/17 14:15 02/02/17 14:15 02/01/17 02/02/17 02/03/17 05:59 05:59 05:59 Intake Total 3998 2947 Output Total 5482 1151 Balance -1484 1796 PT 15.3 SEC (12.0-15.0) H 02/02/17 06:02 INR 1.21 (0.83-1.16) H 02/02/17 06:02 Intubated, sedated Abd sl distended, [employer] without erythema Ostomy viable ICD10 Worksheet Patient Problems: Problems Problem Status Onset Atrial fibrillation Acute Diverticulitis Acute - ICD10 Problem Qualifiers (1) Diverticulitis Qualifiers: Diverticulitis site: D Diverticulitis bleeding: D Diverticulitis complication: D
[2017-02-02 18:42] LABS: HEPARIN INDUCED ANTIBODY Negative (Negative); HEPARIN-PF4 IgG ANTIBODY ELISA 0.194 OD (<0.400)
[2017-02-02 18:44] LABS: IONIZED CALCIUM 1.12 MMOL/L (1.12-1.30)
[2017-02-02 18:55] LABS: ANION GAP 12 mEq/L (8-16); CALCIUM 9.6 mg/dL (8.5-10.4); CARBON DIOXIDE 21 mEq/l (22-31); CHLORIDE 102 mEq/L (97-110); CREATININE 0.7 mg/dL (0.6-1.0); GLOMERULAR FILTRATION RATE > 60; GLUCOSE 96 mg/dL (70-100); MAGNESIUM 1.4 mg/dL (1.6-2.3); POTASSIUM 3.8 mEq/L (3.5-5.2); SODIUM 135 mEq/L (134-144)
[2017-02-02] MEDS: TPN 1 EA BAG IV SCH (20:54)
[2017-02-02 22:09] LABS: ANION GAP 15 mEq/L (8-16); CALCIUM 9.7 mg/dL (8.5-10.4); CARBON DIOXIDE 20 mEq/l (22-31); CHLORIDE 100 mEq/L (97-110); CREATININE 0.6 mg/dL (0.6-1.0); GLOMERULAR FILTRATION RATE > 60; GLUCOSE 89 mg/dL (70-100); MAGNESIUM 1.8 mg/dL (1.6-2.3); POTASSIUM 3.5 mEq/L (3.5-5.2); SODIUM 135 mEq/L (134-144)
[2017-02-02] MEDS: SODIUM CITRATE 4% 5 ML in SYRINGE 0 ML DIAL PRN (23:38)
[2017-02-03] MEDS: ALBUMIN 25% 100 ML IV PRN (03:37)
[2017-02-03] MEDS: PROPOFOL/EMULSION 100 ML IV SCH ×2 (03:37→11:58)
[2017-02-03 03:43] LABS: % IMMATURE GRANULYOCYTES 2.5 % (0.0-1.1); ABSOLUTE IMMATURE GRANULOCYTES 0.28 10^3/uL (0.00-0.10); ABSOLUTE NRBC COUNT 0.04 10^3/uL (0-0.01); ADD DIFF? NO; ADD MORPH? YES; ADD SCAN? NO; ATYPICAL LYMPHOCYTE FLAG 40 (0-99); FRAGMENT RBC FLAG 0 (0-99); HEMATOCRIT 25.3 % (38.0-47.0); HEMOGLOBIN 8.1 g/dL (12.6-16.3); LEFT SHIFT FLG 20 (0-99); LIPEMIA HEMOLYSIS FLAG 80 (0-99); MEAN CELL HEMOGLOBIN 30.2 pg (27.9-34.1); MEAN CELL VOLUME 94.4 fL (81.5-99.8); MEAN PLATELET VOLUME 10.8 fL (8.7-11.7); NRBC-AUTO% 0.4 % (0.0-0.2); PLATELET CLUMPS FLAG 0 (0-99); RED BLOOD CELL COUNT 2.68 10^6/uL (4.18-5.33)
[2017-02-03 03:49] LABS: PLATELET COUNT 34 10^3/uL (150-400); RED CELL DISTRIBUTION WIDTH 21.8 % (11.5-15.2)
[2017-02-03 03:52] LABS: INR 1.28 (0.83-1.16)
[2017-02-03 04:10] LABS: ALANINE AMINOTRANSFERASE 298 IU/L (9-52); ALKALINE PHOSPHATASE 181 IU/L (38-126); ANION GAP 12 mEq/L (8-16); ASPARTATE AMINOTRANSFERASE 99 IU/L (14-46); BILIRUBIN,TOTAL 12.1 mg/dL (0.1-1.4); CALCIUM 9.8 mg/dL (8.5-10.4); CARBON DIOXIDE 22 mEq/l (22-31); CHLORIDE 101 mEq/L (97-110); CREATININE 0.8 mg/dL (0.6-1.0); GLOMERULAR FILTRATION RATE > 60; GLUCOSE 79 mg/dL (70-100); SODIUM 135 mEq/L (134-144); TOTAL PROTEIN 5.7 g/dL (6.3-8.2)
[2017-02-03 04:17] LABS: BILIRUBIN-CONJUGATED 10.3 mg/dL (0.0-0.5); BILIRUBIN-UNCONJUGATED 1.8 mg/dL (0.0-1.1)
[2017-02-03 05:25] LABS: HYPOCHROMIA 1+; MICROCYTES 1+; PLATELET ESTIMATE DECREASED (ADEQ); POLYCHROMASIA 1+
[2017-02-03] MEDS: LORazepam 2 MG/ML INJ IVP PRN (05:59)
[2017-02-03] MEDS: NOREPINEPHRINE/NS 500 ML IV SCH (08:00)
[2017-02-03] MEDS: PANTOPRAZOLE SODIUM 40 MG in NS 100 ML IV SCH (08:32)
[2017-02-03] MEDS: CHLORHEXIDINE GLUCONATE 15 ML UDL PO SCH ×2 (08:32→19:59)
[2017-02-03] MEDS: ALBUTEROL 200 PUFFS/18 GM MDI IH SCH ×4 (08:51→20:19)
[2017-02-03] MEDS: SODIUM CITRATE 4% 5 ML in SYRINGE 0 ML DIAL PRN (10:46)
--- NOTE | 2017-02-03 11:49 | SOAPPROG ---
SOAP Progress Note Assessment/Plan: Assessment: NANCY requiring renal replacement therapy sepsis due to anastamotic leak after sigmoid colectomy hypotension Plan: HD today, no vol removal due to hypotension, required pressors for BP support HD tomorrow may need to go back to CRRT if unable to remove fluid continue support discussed with surgery and all questions answered 02/03/17 11:46 Subjective: sedated, not communicative Objective: Vital Signs Temp Pulse Resp BP Pulse Ox 36.9 C 104 H 32 H 135/54 H 98 02/03/17 07:45 02/03/17 11:00 02/03/17 11:00 02/03/17 11:00 02/03/17 11:00 Laboratory Results 02/03/17 03:38 02/03/17 03:38 02/02/17 02/03/17 02/04/17 05:59 05:59 05:59 Intake Total 2947 4241.4 Output Total 1151 150 Balance 1796 4091.4 PT 16.0 SEC (12.0-15.0) H 02/03/17 03:38 INR 1.28 (0.83-1.16) H 02/03/17 03:38 Physical Exam - Physical Exam General Appearance: obese Respiratory: other (coarse bs bilat, no rh or wh) Cardiac/Chest: regular rate, rhythm, edema (+2), No friction rub Abdomen: other (quiet, distended) Extremities: swelling Neuro/Psych: other (sedated, not communicative) ICD10 Worksheet Patient Problems: Problems Problem Status Onset Atrial fibrillation Acute Diverticulitis Acute
--- NOTE | 2017-02-03 12:20 | SOAPPROG ---
SOAP Progress Note Assessment/Plan: Assessment: Slight drop in Hgb, cont to monitor. Plan: 01/26/17 10:12 01/27/17 08:53 01/28/17 13:28 01/29/17 14:42 01/30/17 14:32 01/31/17 09:42 02/01/17 11:55 02/02/17 17:12 02/03/17 12:19 Subjective: On HD daily now. Objective: Vital Signs Temp Pulse Resp BP Pulse Ox 36.6 C 101 H 34 H 135/47 H 98 02/03/17 12:00 02/03/17 12:00 02/03/17 12:00 02/03/17 12:00 02/03/17 12:00 Microbiology 02/01/17 12:15 Urine Culture - Final Urine,Catheterized Constance [place] Laboratory Results 02/03/17 03:38 02/03/17 03:38 02/02/17 02/03/17 02/04/17 05:59 05:59 05:59 Intake Total 2947 4241.4 Output Total 1151 150 Balance 1796 4091.4 PT 16.0 SEC (12.0-15.0) H 02/03/17 03:38 INR 1.28 (0.83-1.16) H 02/03/17 03:38 Intubated, sedated Abd sl distended, [employer] without erythema Ostomy viable ICD10 Worksheet Patient Problems: Problems Problem Status Onset Atrial fibrillation Acute Diverticulitis Acute - ICD10 Problem Qualifiers (1) Diverticulitis Qualifiers: Diverticulitis site: D Diverticulitis bleeding: D Diverticulitis complication: D
--- NOTE | 2017-02-03 13:01 | HOSPPROG ---
Hospitalist Progress Note Assessment/Plan: #Fever: resolved. UA, CXR, peripheral PICC/HD catheter culture negative. Abd source possible, consider imaging if persistent #Oliguric ARF: HD today, but not fluid removal since needing pressor. Repeat tomorrow. CRRT if cannot tolerate fluid removal. #Retroperitoneal bleed: underwent 2 embolizations, most recent 01/29. Slight drop in H/H this morn, repeat stable #Acute hypoxemic resp failure: cont to trial wean. Trach is likely #Polymicrobial peritonitis: sigmoid resection complicated by anastomotic leak. Completed 3 weeks Zosyn 01/28 #Bacteroides bacteremia: abx as above #Thrombocytopenia: suspect smoldering DIC. HIT Ab negative #PEA arrest: 01/25 likely due to hypovolemia/hypothermia. Cardiology consulted. Echo without LV dysfunction or wall motion abnormality #HAP: s/p bactrim #Leukocytosis: nearly resolved #Septic shock: still requires low-dose Levo #Metabolic acidosis: resolved. #Diet: TFs. Consider PEG #DVT ppx: SCDs #Disp: warrant inpatient admission given ARF, shock. Cont CRRT, pressors Subjective: started HD this morning Objective: Vital Signs Temp Pulse Resp BP Pulse Ox 36.6 C 106 H 30 H 129/53 H 98 02/03/17 12:00 02/03/17 12:45 02/03/17 12:45 02/03/17 12:45 02/03/17 12:45 Microbiology 02/01/17 12:15 Urine Culture - Final Urine,Catheterized [facility] Laboratory Results 02/03/17 03:38 02/03/17 03:38 02/02/17 02/03/17 02/04/17 05:59 05:59 05:59 Intake Total 2947 4241.4 Output Total 1151 150 Balance 1796 4091.4 PT 16.0 SEC (12.0-15.0) H 02/03/17 03:38 INR 1.28 (0.83-1.16) H 02/03/17 03:38 - Physical Exam Constitutional: obese Eyes: PERRL Ears, Nose, Mouth, Throat: moist mucous membranes, other (ET in place) Cardiovascular: regular rate and rhythym, no murmur, rub, or gallop, edema (+2- 3 edema LEs) Respiratory: no respiratory distress Gastrointestinal: normoactive bowel sounds, other (ostomy with pink tissue. Surgical incisions without surrounding cellulitis) Genitourinary: no bladder fullness Skin: warm Musculoskeletal: full muscle strength, other (HD catheter, CdI) Neurologic: AAOx3, CN II-XII Intact Psychiatric: other (sedated) ICD10 Worksheet Patient Problems: Problems Problem Status Onset Atrial fibrillation Acute Diverticulitis Acute
[2017-02-03 13:56] LABS: HEMATOCRIT 24.1 % (38.0-47.0); HEMOGLOBIN 8.1 g/dL (12.6-16.3); LIPEMIA HEMOLYSIS FLAG 80 (0-99); MEAN CELL HEMOGLOBIN 30.7 pg (27.9-34.1); MEAN CELL HEMOGLOBIN CONCENTR. 33.6 g/dL (32.4-36.7); MEAN CELL VOLUME 91.3 fL (81.5-99.8); PLATELET CLUMPS FLAG 10 (0-99); RED BLOOD CELL COUNT 2.64 10^6/uL (4.18-5.33)
[2017-02-03 13:59] LABS: PLATELET COUNT 40 10^3/uL (150-400); RED CELL DISTRIBUTION WIDTH 21.9 % (11.5-15.2)
--- NOTE | 2017-02-03 14:51 | PCMIDPN ---
Assessment/Plan: Assessment: sepsis due to peritonitis from sigmoid colon rupture due to diverticulitis. Was previously extubated and improving when she developed spontaneous retroperitoneal hemorrhage and acute blood loss anemia - resulting in PEA arrest and shock liver as well as ARF. Patient has retained degree of stability. Remains on ventilator. Some neurologic response. Zosyn dosing completed. Plan: 1) continue to follow clinical course. Subjective: Patient remains intubated and sedated. Periodic low-grade fevers. Objective: No antibiotics Vital Signs Temp Pulse Resp BP Pulse Ox 36.6 C 107 H 32 H 124/47 H 97 02/03/17 12:00 02/03/17 14:00 02/03/17 14:00 02/03/17 14:00 02/03/17 14:00 Microbiology 02/01/17 12:15 Urine Culture - Final Urine,Catheterized [facility] Laboratory Results 02/03/17 13:45 02/03/17 03:38 02/02/17 02/03/17 02/04/17 05:59 05:59 05:59 Intake Total 2947 4241.4 Output Total 1151 150 Balance 1796 4091.4 - Physical Exam General Appearance: WD/WN, other (Intubated and sedated) Respiratory: lungs clear, normal breath sounds, No respiratory distress Cardiac/Chest: regular rate, rhythm, No tachycardia Skin: normal color, warm/dry, No rash ICD10 Worksheet Patient Problems: Problems Problem Status Onset Atrial fibrillation Acute Diverticulitis Acute
[2017-02-03 15:48] LABS: PLATELET ESTIMATE DECREASED (ADEQ)
--- NOTE | 2017-02-03 16:03 | PDINTPN ---
[facility] Director Progress Note Assessment/Plan: Assessment/plan: 71 F with diverticulitis admitted 01/04 with abdominal pain and had robotic sigmoid hemicolectomy. There were no obvious complications and she was sent to the floor, but developed increasing pain and somnolence so was transferred to the ICU 01/[address] revealing an 11 cm pelvic hematoma and extraluminal air. She returned to the OR for evacuation of the hematoma and creation of an ileostomy. She was extubated the next morning, but developed atrial fibrillation , which she may have had twice in previous years (family was uncertain). She has remained hospitalized since with multiple complications and MOF. * Encephalopathy presumed to be related to multiorgan failure and multiple complications. no evidence of CVA. Follows simple commands for staff * Respiratory failure with hypoxemia- initially related to anastamotic leak then pain control, ineffective respirations and possibly pulmonary edema 2/2 NANCY and afib. She later developed HAP with pseudomonas in her Bcx and was treated with Abx for several weeks. She was first re-intubated 01/09, followed by eventual extubation, but again re-intubated 01/25/17 with code blue. Her vent requirements are minimal but that puts her at vent day #9 (ignoring previous events). She weaned 4 hours on PS7 02/02, but not so well early this AM. Retry at PS10 for 2 hours BID. Likely will need trach wednesday and eventual LTACH eval. Mentioned to family today * Hypotension- back on low dose levophed as her pressure dropped when attempted volume removal * Afib with RVR. She was initially treated with amiodarone, followed by a brief trial of esmolol (dropped BP). She got one dose of Digoxin on 01/08, but worsening renal function made that a less desirable choice. Diltiazem was added 01/09 with mild success- HR 140-160 and no drop in BP. Cards following and rate control with oral amiodarone and metoprolol prn * Peritonitis following sigmoid resection complicated by anastamotic leak. Afebrile and decreased wbc without intervention. Continue observation and fu cultures. Started TF without difficulty and TPN dc'd. 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 She remains dialysis dependent (either CRRT or HD) so prognosis is poor from this perspective IMHO. Defer to renal for CRRT versus HD , but prefer even volume as above. Prognosis from this perspective does not look good. Likely to require termite helper dialysis. Will discuss with renal possibility of tunnelled HD catheter * Transaminitis- she had a small increase in AST/ALT likely 2/2 decreased perfusion early in her course, but a substantial increase after her code. Continue periodic checks. * Retroperitoneal bleed 2/2?- she has been embolized twice- 01/26 and 01/29 and transfused last on 01/29 with stable Hct. Hold anticoagulation and use SCDs for VTE prophylaxis. Hct remains stable and no further blood transfusions needed. Her BP issues are currently not likely related to bleeding. H/H relatively stable. * Thrombocytopenia- slowly falling for unclear reasons. No heparins and HIT negative. Remains low but stable. Likley from consumptive coagulopathy related to retroperitoneal bleed. * Code blue 01/25/17 from PEA presumably related to hypovolemia and possibly hypoxia. CPR time not fully clear to me, but this effects prognosis obviously. Will perform more detailed exam once sedation reduced * Nutrition- Started TF as above. She may eventually need PEG but will need to discuss with surgery * ICU prophylaxis- SCDs and pantoprazole * Critical care time at least 45 minutes separate from procedures for a complex patient with evidence of multisystem failure 02/02/17 12:37 02/03/17 15:57 Objective: Vital Signs Temp Pulse Resp BP Pulse Ox 36.6 C 106 H 30 H 127/51 H 96 02/03/17 12:00 02/03/17 15:00 02/03/17 15:00 02/03/17 15:00 02/03/17 15:00 Microbiology 02/01/17 12:15 Urine Culture - Final Urine,Catheterized [facility] Laboratory Results 02/03/17 13:45 02/03/17 03:38 02/02/17 02/03/17 02/04/17 05:59 05:59 05:59 Intake Total 2947 4241.4 Output Total 1151 150 Balance 1796 4091.4 PT 16.0 SEC (12.0-15.0) H 02/03/17 03:38 INR 1.28 (0.83-1.16) H 02/03/17 03:38 Physical Exam - Physical Exam General Appearance: no apparent distress, other (sedated on vent) EENT: PERRL/EOMI Neck: supple Respiratory: lungs clear, normal breath sounds, No respiratory distress Cardiac/Chest: regular rate, rhythm, edema Abdomen: normal bowel sounds, soft, No distended Skin: normal color, warm/dry Lymphatic: no adenopathy Extremities: non-tender, pedal edema Neuro/Psych: cognition abnormalities ICD10 Worksheet Patient Problems: Problems Problem Status Onset Atrial fibrillation Acute Diverticulitis Acute
[2017-02-03 18:18] LABS: HEMATOCRIT 24.4 % (38.0-47.0); HEMOGLOBIN 8.1 g/dL (12.6-16.3)
[2017-02-03] MEDS: fentaNYL 100 MCG/2 ML INJ IVP PRN ×2 (18:47→22:08)
[2017-02-04 00:15] LABS: HEMATOCRIT 24.3 % (38.0-47.0); HEMOGLOBIN 8.1 g/dL (12.6-16.3)
[2017-02-04] MEDS: PROPOFOL/EMULSION 100 ML IV SCH ×4 (03:38→21:26)
[2017-02-04 06:01] LABS: ABSOLUTE NRBC COUNT 0.02 10^3/uL (0-0.01); ADD DIFF? YES; ATYPICAL LYMPHOCYTE FLAG 0 (0-99); FRAGMENT RBC FLAG 0 (0-99); HEMATOCRIT 23.6 % (38.0-47.0); HEMOGLOBIN 7.8 g/dL (12.6-16.3); LEFT SHIFT FLG 40 (0-99); LIPEMIA HEMOLYSIS FLAG 80 (0-99); MEAN CELL HEMOGLOBIN 30.7 pg (27.9-34.1); MEAN CELL HEMOGLOBIN CONCENTR. 33.1 g/dL (32.4-36.7); MEAN CELL VOLUME 92.9 fL (81.5-99.8); MEAN PLATELET VOLUME 12.4 fL (8.7-11.7); NRBC-AUTO% 0.2 % (0.0-0.2); PLATELET CLUMPS FLAG 10 (0-99); RED BLOOD CELL COUNT 2.54 10^6/uL (4.18-5.33)
[2017-02-04 06:06] LABS: ADD MORPH? NO; ADD SCAN? NO; PLATELET COUNT 48 10^3/uL (150-400); RED CELL DISTRIBUTION WIDTH 22.6 % (11.5-15.2)
[2017-02-04 06:14] LABS: ALANINE AMINOTRANSFERASE 235 IU/L (9-52); ALBUMIN 2.8 g/dL (3.5-5.0); ALKALINE PHOSPHATASE 282 IU/L (38-126); ANION GAP 11 mEq/L (8-16); ASPARTATE AMINOTRANSFERASE 115 IU/L (14-46); BILIRUBIN,TOTAL 13.7 mg/dL (0.1-1.4); CALCIUM 9.2 mg/dL (8.5-10.4); CARBON DIOXIDE 23 mEq/l (22-31); CHLORIDE 98 mEq/L (97-110); CREATININE 1.3 mg/dL (0.6-1.0); GLOMERULAR FILTRATION RATE 40; GLUCOSE 97 mg/dL (70-100); POTASSIUM 4.5 mEq/L (3.5-5.2); SODIUM 132 mEq/L (134-144); TOTAL PROTEIN 5.5 g/dL (6.3-8.2)
[2017-02-04 06:28] LABS: BILIRUBIN-CONJUGATED 12.2 mg/dL (0.0-0.5); BILIRUBIN-UNCONJUGATED 1.5 mg/dL (0.0-1.1)
[2017-02-04 06:39] LABS: MACROCYTES 1+; MICROCYTES 1+; PLATELET ESTIMATE DECREASED (ADEQ); POLYCHROMASIA 1+
[2017-02-04] MEDS ORDERED: MAGNESIUM SULF 1 GM/DEXTROSE 100 ML IV ONE (08:38)
[2017-02-04] MEDS: CHLORHEXIDINE GLUCONATE 15 ML UDL PO SCH ×2 (08:39→20:53)
[2017-02-04] MEDS: PANTOPRAZOLE SODIUM 40 MG in NS 100 ML IV SCH (08:39)
[2017-02-04] MEDS: ALBUTEROL 200 PUFFS/18 GM MDI IH SCH ×4 (08:41→20:55)
[2017-02-04] MEDS: fentaNYL 100 MCG/2 ML INJ IVP PRN ×2 (09:07→19:14)
--- NOTE | 2017-02-04 10:23 | SOAPPROG ---
[facility] Progress Note Assessment/Plan: Assessment:Plan: ARF-anuric -off CRRT -Hd yesterday, but required pressors -still on levophed -will try Hd again today, fluid goal adjusted -will see if we can alternate with PUF to obtain adequate fluid management -plan for PUF tomorrow -due to issues with obtaining calcium replacement, I would not plan to restart CRRT at this time -she remains on 40% FiO2, so she does not appear to have worsening CHF that would require more aggressive fluid removal measures -no recent CXR -prior attempt at non-citrate/calcium-free CRRT were complicated by the system clotting Access-stable Nutrition-on TPN Pulmonary-for CPAP weans -possible trach, depending on how that goes, maybe as early as tomorrow -it is somewhat difficult to continue CRRT in patients once sedation has been lifted or they are off ventilatory support, as movement, coughing etc can trigger machine alarms that stop therapy and increase risk for clotting of the system, preventing continuous therapy 02/04/17 10:15 Subjective: stable on CPAP Objective: Vital Signs Temp Pulse Resp BP Pulse Ox 37.1 C 97 16 117/50 L 96 02/04/17 08:52 02/04/17 08:52 02/04/17 08:52 02/04/17 08:52 02/04/17 08:52 Microbiology 01/29/17 14:20 Blood Culture - Final Blood 01/29/17 14:20 Blood Culture - Final Blood 02/01/17 12:15 Urine Culture - Final Urine,Catheterized [facility] Laboratory Results 02/04/17 05:44 02/04/17 05:44 02/03/17 02/04/17 02/05/17 05:59 05:59 05:59 Intake Total 4241.4 2784 Output Total 150 600 Balance 4091.4 2184 PT 16.0 SEC (12.0-15.0) H 02/03/17 03:38 INR 1.28 (0.83-1.16) H 02/03/17 03:38 Physical Exam - Physical Exam General Appearance: no apparent distress EENT: ET tube Neck: normal inspection Respiratory: lungs clear, normal breath sounds, No respiratory distress Cardiac/Chest: regular rate, rhythm Abdomen: No normal bowel sounds Extremities: swelling ICD10 Worksheet Patient Problems: Problems Problem Status Onset Atrial fibrillation Acute Diverticulitis Acute
[2017-02-04] MEDS: NOREPINEPHRINE/NS 500 ML IV SCH (11:46)
[2017-02-04 12:33] LABS: % IMMATURE GRANULYOCYTES 2.7 % (0.0-1.1); ABSOLUTE IMMATURE GRANULOCYTES 0.28 10^3/uL (0.00-0.10); ADD DIFF? NO; ADD MORPH? YES; ADD SCAN? NO; ATYPICAL LYMPHOCYTE FLAG 50 (0-99); FRAGMENT RBC FLAG 0 (0-99); HEMATOCRIT 23.1 % (38.0-47.0); HEMOGLOBIN 7.8 g/dL (12.6-16.3); LEFT SHIFT FLG 30 (0-99); LIPEMIA HEMOLYSIS FLAG 90 (0-99); MEAN CELL HEMOGLOBIN 31.5 pg (27.9-34.1); MEAN CELL HEMOGLOBIN CONCENTR. 33.8 g/dL (32.4-36.7); MEAN CELL VOLUME 93.1 fL (81.5-99.8); MEAN PLATELET VOLUME 11.8 fL (8.7-11.7); PLATELET CLUMPS FLAG 0 (0-99); RED BLOOD CELL COUNT 2.48 10^6/uL (4.18-5.33)
[2017-02-04 12:35] LABS: PLATELET COUNT 48 10^3/uL (150-400); RED CELL DISTRIBUTION WIDTH 22.5 % (11.5-15.2)
[2017-02-04 13:44] LABS: HEPATITIS Bs Ab QUANT 24.2 mIU/mL
[2017-02-04 14:15] LABS: GIANT PLATELETS PRESENT; MACROCYTES 1+; MICROCYTES 1+; PLATELET ESTIMATE DECREASED (ADEQ); POLYCHROMASIA 2+
[2017-02-04 14:16] LABS: COLD AGGLUTININ PRESENT
--- NOTE | 2017-02-04 16:04 | PDINTPN ---
[facility] Progress Note Assessment/Plan: Assessment/plan: 71 F with diverticulitis admitted 01/04 with abdominal pain and had robotic sigmoid hemicolectomy. There were no obvious complications and she was sent to the floor, but developed increasing pain and somnolence so was transferred to the ICU 01/[address] revealing an 11 cm pelvic hematoma and extraluminal air. She returned to the OR for evacuation of the hematoma and creation of an ileostomy. She was extubated the next morning, but developed atrial fibrillation , which she may have had twice in previous years (family was uncertain). She has remained hospitalized since with multiple complications and MOF. * Encephalopathy presumed to be related to multiorgan failure and multiple complications. no evidence of CVA. Follows simple commands * Respiratory failure with hypoxemia- initially related to anastamotic leak then pain control, ineffective respirations and possibly pulmonary edema 2/2 NANCY and afib. She later developed HAP with pseudomonas in her Bcx and was treated with Abx for several weeks. She was first re-intubated 01/09, followed by eventual extubation, but again re-intubated 01/25/17 with code blue. Her vent requirements are minimal but that puts her at vent day #9 (ignoring previous events). She is showing promise on weans and has tolerated lower PS to 5. Continue with weaning and will hold off on trach, though she may eventually still need one due to weakness. * Hypotension- off and on at low dose * Afib with RVR. She was initially treated with amiodarone, followed by a brief trial of esmolol (dropped BP). She got one dose of Digoxin on 01/08, but worsening renal function made that a less desirable choice. Diltiazem was added 01/09 with mild success- HR 140-160 and no drop in BP. Cards following and rate control with oral amiodarone and metoprolol prn * Peritonitis following sigmoid resection complicated by anastamotic leak. Afebrile and decreased wbc without intervention. Continue observation and fu cultures. Started TF without difficulty and TPN dc'd. 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 She remains dialysis dependent (either CRRT or HD) so prognosis is poor from this perspective IMHO. Defer to renal for CRRT versus HD , though I am not certain pulling volume will help given her low FiO2. Will discuss with renal possibility of tunnelled HD catheter * Transaminitis- she had a small increase in AST/ALT likely 2/2 decreased perfusion early in her course, but a substantial increase after her code. Continue periodic checks. TB also from blood re-absorption * Retroperitoneal bleed 2/2?- she has been embolized twice- 01/26 and 01/29 and transfused last on 01/29 with stable Hct. Hold anticoagulation and use SCDs for VTE prophylaxis. Drop in H/H today more likely dilution, but will check CT regardless * Thrombocytopenia- slowly falling for unclear reasons. No heparins and HIT negative. Remains low but stable. Likely from consumptive coagulopathy related to retroperitoneal bleed. * Code blue 01/25/17 from PEA presumably related to hypovolemia and possibly hypoxia. CPR time not fully clear to me, but this effects prognosis obviously. Will perform more detailed exam once sedation reduced * Nutrition- Started TF as above. She may eventually need PEG but will need to discuss with surgery * ICU prophylaxis- SCDs and pantoprazole * Critical care time at least 45 minutes separate from procedures for a complex patient with evidence of multisystem failure Objective: Vital Signs Temp Pulse Resp BP Pulse Ox 37.1 C 99 25 H 94/44 L 96 02/04/17 15:00 02/04/17 15:00 02/04/17 15:00 02/04/17 15:00 02/04/17 15:00 Microbiology 01/29/17 14:20 Blood Culture - Final Blood 01/29/17 14:20 Blood Culture - Final Blood 02/01/17 12:15 Urine Culture - Final Urine,Catheterized [facility] Laboratory Results 02/04/17 12:20 02/04/17 05:44 02/03/17 02/04/17 02/05/17 05:59 05:59 05:59 Intake Total 4241.4 2784 Output Total 150 600 100 Balance 4091.4 2184 -100 PT 16.0 SEC (12.0-15.0) H 02/03/17 03:38 INR 1.28 (0.83-1.16) H 02/03/17 03:38 Physical Exam - Physical Exam General Appearance: no apparent distress, obese EENT: PERRL/EOMI Neck: supple Respiratory: lungs clear, normal breath sounds, No respiratory distress Cardiac/Chest: regular rate, rhythm, edema Abdomen: non-tender, soft, No distended Skin: warm/dry, jaundice Extremities: pedal edema Neuro/Psych: cognition abnormalities ICD10 Worksheet Patient Problems: Problems Problem Status Onset Atrial fibrillation Acute Diverticulitis Acute
--- NOTE | 2017-02-04 16:42 | HOSPPROG ---
Hospitalist Progress Note Assessment/Plan: * Septic shock - weaning off Levophed * Anastomotic leak after sigmoid resection -s/p ileostomy * Peritonitis - polymicrobial -s/p 3 weeks IV Zosyn * Retroperitoneal bleed s/p embolization x 2 -repeat CT a/p r/o recurrent bleed due to dropping H/H * Acute respiratory failure -continue weaning trials -proceed with trach if no extubation in next couple of days * ARF - hemodialysis * s/p PEA arrest * Morbid obesity - BMI 41 * Increased LFT due to shock liver -improving * Afib - PO amiodarone * Thrombocytopenia -likely consumptive Subjective: Weaning a little better Objective: Vital Signs Temp Pulse Resp BP Pulse Ox 36.6 C 95 20 96/50 L 98 02/04/17 16:00 02/04/17 16:00 02/04/17 16:00 02/04/17 16:00 02/04/17 16:00 Microbiology 01/29/17 14:20 Blood Culture - Final Blood 01/29/17 14:20 Blood Culture - Final Blood 02/01/17 12:15 Urine Culture - Final Urine,Catheterized [facility] Laboratory Results 02/04/17 12:20 02/04/17 05:44 02/03/17 02/04/17 02/05/17 05:59 05:59 05:59 Intake Total 4241.4 2784 Output Total 150 600 100 Balance 4091.4 2184 -100 PT 16.0 SEC (12.0-15.0) H 02/03/17 03:38 INR 1.28 (0.83-1.16) H 02/03/17 03:38 still on IV levophed this am d/w Dr. Zamora - ICU rounds - give few more days vent weans before trach - Physical Exam Constitutional: no apparent distress, appears nourished, not in pain Cardiovascular: regular rate and rhythym, no murmur, rub, or gallop Respiratory: no respiratory distress, no rales or rhonchi, clear to auscultation Gastrointestinal: normoactive bowel sounds, soft, non-tender abdomen, no palpable masses Skin: no rashes or abrasions, no fluctuance, no induration, other (pale) Psychiatric: other (intubated and sedated), No interacting appropriately ICD10 Worksheet Patient Problems: Problems Problem Status Onset Atrial fibrillation Acute Diverticulitis Acute
[2017-02-04 17:51] LABS: ADD DIFF? YES; ADD MORPH? YES; ATYPICAL LYMPHOCYTE FLAG 0 (0-99); FRAGMENT RBC FLAG 0 (0-99); HEMATOCRIT 23.6 % (38.0-47.0); HEMOGLOBIN 8.2 g/dL (12.6-16.3); LEFT SHIFT FLG 60 (0-99); LIPEMIA HEMOLYSIS FLAG 90 (0-99); MEAN CELL HEMOGLOBIN 31.9 pg (27.9-34.1); MEAN CELL HEMOGLOBIN CONCENTR. 34.7 g/dL (32.4-36.7); MEAN CELL VOLUME 91.8 fL (81.5-99.8); MEAN PLATELET VOLUME 12.1 fL (8.7-11.7); PLATELET CLUMPS FLAG 0 (0-99); PLATELET COUNT 54 10^3/uL (150-400); RED BLOOD CELL COUNT 2.57 10^6/uL (4.18-5.33)
[2017-02-04 17:55] LABS: ADD SCAN? NO; RED CELL DISTRIBUTION WIDTH 22.3 % (11.5-15.2)
[2017-02-04 18:23] LABS: HYPOCHROMIA 2+; MACROCYTES 1+; MICROCYTES 1+; PLATELET ESTIMATE DECREASED (ADEQ)
--- NOTE | 2017-02-04 20:26 | SOAPPROG ---
[facility] Progress Note Assessment/Plan: Assessment: Slight drop in Hgb, await CT. Plan: 01/26/17 10:12 01/27/17 08:53 01/28/17 13:28 01/29/17 14:42 01/30/17 14:32 01/31/17 09:42 02/01/17 11:55 02/02/17 17:12 02/03/17 12:19 02/04/17 20:25 Subjective: No events Objective: Vital Signs Temp Pulse Resp BP Pulse Ox 36.7 C 99 18 93/36 L 99 02/04/17 19:15 02/04/17 19:15 02/04/17 19:15 02/04/17 19:15 02/04/17 19:15 Microbiology 01/29/17 14:20 Blood Culture - Final Blood 01/29/17 14:20 Blood Culture - Final Blood Laboratory Results 02/04/17 17:32 02/04/17 05:44 02/03/17 02/04/17 02/05/17 05:59 05:59 05:59 Intake Total 4241.4 2784 1359.2 Output Total 792 955 6899 Balance 4091.4 2184 159.2 PT 16.0 SEC (12.0-15.0) H 02/03/17 03:38 INR 1.28 (0.83-1.16) H 02/03/17 03:38 Intubated, sedated Abd sl distended Inc without erythema Ostomy viable ICD10 Worksheet Patient Problems: Problems Problem Status Onset Atrial fibrillation Acute Diverticulitis Acute - ICD10 Problem Qualifiers (1) Diverticulitis Qualifiers: Diverticulitis site: D Diverticulitis bleeding: D Diverticulitis complication: D
[2017-02-05] MEDS: fentaNYL 100 MCG/2 ML INJ IVP PRN (00:09)
[2017-02-05 00:20] LABS: ABSOLUTE IMMATURE GRANULOCYTES 0.27 10^3/uL (0.00-0.10); ADD DIFF? NO; ADD MORPH? YES; ADD SCAN? NO; ATYPICAL LYMPHOCYTE FLAG 40 (0-99); FRAGMENT RBC FLAG 0 (0-99); HEMATOCRIT 25.3 % (38.0-47.0); HEMOGLOBIN 8.4 g/dL (12.6-16.3); LEFT SHIFT FLG 20 (0-99); LIPEMIA HEMOLYSIS FLAG 80 (0-99); MEAN CELL HEMOGLOBIN 30.8 pg (27.9-34.1); MEAN CELL HEMOGLOBIN CONCENTR. 33.2 g/dL (32.4-36.7); MEAN CELL VOLUME 92.7 fL (81.5-99.8); MEAN PLATELET VOLUME 11.8 fL (8.7-11.7); PLATELET CLUMPS FLAG 0 (0-99); PLATELET COUNT 63 10^3/uL (150-400); RED BLOOD CELL COUNT 2.73 10^6/uL (4.18-5.33)
[2017-02-05 00:23] LABS: RED CELL DISTRIBUTION WIDTH 22.4 % (11.5-15.2)
[2017-02-05 01:34] LABS: HYPOCHROMIA 1+; MACROCYTES 1+; MICROCYTES 1+; POLYCHROMASIA 1+
[2017-02-05 01:35] LABS: PLATELET ESTIMATE DECREASED (ADEQ)
[2017-02-05] MEDS: ACETAMINOPHEN 650 MG/20.3 ML UDCUP TUBE PRN (04:04)
[2017-02-05 05:08] LABS: BASE EXCESS -0.2 mEq/L (-2.5-2.5); BICARBONATE 23 mEq/L (22-26); MEASURED OXYGEN SATURATION 98 % (92-95); PCO2 35 mmHg (34-38); PO2 98 mmHg (65-75); TCO2 24 mEq/L (23-27)
[2017-02-05 05:09] LABS: ASSIST CONTROL YES; END TIDAL CO2 30; O2 CONCENTRATIION 40 % (0-100); P/F RATIO 245 RATIO; TOTAL RATE 16
[2017-02-05 05:18] LABS: ABSOLUTE IMMATURE GRANULOCYTES 0.28 10^3/uL (0.00-0.10); ADD DIFF? NO; ADD MORPH? YES; ADD SCAN? NO; ATYPICAL LYMPHOCYTE FLAG 40 (0-99); FRAGMENT RBC FLAG 0 (0-99); HEMATOCRIT 25.4 % (38.0-47.0); HEMOGLOBIN 8.3 g/dL (12.6-16.3); LEFT SHIFT FLG 20 (0-99); LIPEMIA HEMOLYSIS FLAG 80 (0-99); MEAN CELL HEMOGLOBIN 30.3 pg (27.9-34.1); MEAN CELL HEMOGLOBIN CONCENTR. 32.7 g/dL (32.4-36.7); MEAN CELL VOLUME 92.7 fL (81.5-99.8); MEAN PLATELET VOLUME 11.5 fL (8.7-11.7); PLATELET CLUMPS FLAG 10 (0-99); PLATELET COUNT 76 10^3/uL (150-400); RED BLOOD CELL COUNT 2.74 10^6/uL (4.18-5.33)
[2017-02-05 05:19] LABS: RED CELL DISTRIBUTION WIDTH 22.4 % (11.5-15.2)
[2017-02-05 05:27] LABS: ALANINE AMINOTRANSFERASE 215 IU/L (9-52); ALBUMIN 2.7 g/dL (3.5-5.0); ALKALINE PHOSPHATASE 303 IU/L (38-126); ANION GAP 9 mEq/L (8-16); ASPARTATE AMINOTRANSFERASE 124 IU/L (14-46); BILIRUBIN,TOTAL 13.1 mg/dL (0.1-1.4); CALCIUM 8.7 mg/dL (8.5-10.4); CARBON DIOXIDE 25 mEq/l (22-31); CHLORIDE 98 mEq/L (97-110); CREATININE 1.3 mg/dL (0.6-1.0); GLOMERULAR FILTRATION RATE 40; GLUCOSE 99 mg/dL (70-100); POTASSIUM 4.7 mEq/L (3.5-5.2); SODIUM 132 mEq/L (134-144); TOTAL PROTEIN 5.9 g/dL (6.3-8.2)
[2017-02-05 05:34] LABS: BILIRUBIN-CONJUGATED 11.8 mg/dL (0.0-0.5); BILIRUBIN-UNCONJUGATED 1.3 mg/dL (0.0-1.1)
[2017-02-05 05:44] LABS: HYPOCHROMIA 1+; MACROCYTES 1+; MICROCYTES 1+; PLATELET ESTIMATE DECREASED (ADEQ); POLYCHROMASIA 1+
[2017-02-05] MEDS: ALBUTEROL 200 PUFFS/18 GM MDI IH SCH ×4 (08:13→20:15)
[2017-02-05] MEDS: PANTOPRAZOLE SODIUM 40 MG in NS 100 ML IV SCH (08:20)
[2017-02-05] MEDS: CHLORHEXIDINE GLUCONATE 15 ML UDL PO SCH ×2 (08:21→19:36)
[2017-02-05] MEDS: PROPOFOL/EMULSION 100 ML IV SCH ×2 (08:46→16:14)
--- NOTE | 2017-02-05 10:28 | SOAPPROG ---
[facility] Progress Note Assessment/Plan: Assessment: 1. NANCY. Ischemic due to cardiac arrest. Compression of R kidney/possible obstruction but this was her atrophic kidney, likely minimal impact. Anuric. Bladder scan negative for urine this am. Unable to use CRRT due to Ca shortage and clotting of system w/o Ca. Continue daily dialysis. PUF today as tolerated, HD tomorrow. Prognosis for renal recovery is still good. Excellent functioning L kidney, atrophic R but b/l creat 1 prior to arrest 01/25. Will attempt to attend family meeting today but if unable have discussed renal prognosis with family. 2. Hypotension. Multifactorial. Start midodrine to minimize need for IV pressors. 3. Hyponatremia. D/c free H2O flushes. 4. Shock liver. ALT/AST better, TBili still > 13. 5. Respiratory fx. Per pulm. Plan: 01/13/17 13:56 01/13/17 14:00 01/14/17 09:58 01/14/17 10:14 01/14/17 10:16 01/14/17 10:17 01/14/17 10:18 01/14/17 10:19 01/27/17 08:55 01/27/17 08:59 02/05/17 10:23 Subjective: BP dropped a little bit this am. Back on levophed. Objective: Vital Signs Temp Pulse Resp BP Pulse Ox 36.8 C 96 21 H 129/59 H 97 02/05/17 07:00 02/05/17 09:10 02/05/17 09:00 02/05/17 09:00 02/05/17 09:10 Laboratory Results 02/05/17 05:00 02/05/17 05:00 02/04/17 02/05/17 02/06/17 05:59 05:59 05:59 Intake Total 2784 2369.2 Output Total 600 1525 Balance 2184 844.2 PT 16.0 SEC (12.0-15.0) H 02/03/17 03:38 INR 1.28 (0.83-1.16) H 02/03/17 03:38 Jaundiced, intubated, sedated wf RRR, no m/g/r CTAB Abdom obese, soft, nt. Ostomy, multiple bandages in place. ICD10 Worksheet Patient Problems: Problems Problem Status Onset Atrial fibrillation Acute Diverticulitis Acute
[2017-02-05] MEDS ORDERED: LIDOCAINE 2% JELLY 5 ML TUBE TP ONE (11:33)
[2017-02-05] MEDS ORDERED: LIDOCAINE 1% 30 ML SDV MISC ONE (11:33)
[2017-02-05] MEDS: MIDODRINE HCL 5 MG TAB TUBE SCH ×2 (12:01→15:47)
[2017-02-05 13:18] LABS: % IMMATURE GRANULYOCYTES 2.1 % (0.0-1.1); ABSOLUTE IMMATURE GRANULOCYTES 0.24 10^3/uL (0.00-0.10); ADD DIFF? NO; ADD MORPH? YES; ADD SCAN? NO; ATYPICAL LYMPHOCYTE FLAG 30 (0-99); FRAGMENT RBC FLAG 0 (0-99); HEMATOCRIT 23.9 % (38.0-47.0); HEMOGLOBIN 7.9 g/dL (12.6-16.3); LEFT SHIFT FLG 20 (0-99); LIPEMIA HEMOLYSIS FLAG 80 (0-99); MEAN CELL HEMOGLOBIN 30.9 pg (27.9-34.1); MEAN CELL HEMOGLOBIN CONCENTR. 33.1 g/dL (32.4-36.7); MEAN CELL VOLUME 93.4 fL (81.5-99.8); MEAN PLATELET VOLUME 11.1 fL (8.7-11.7); PLATELET CLUMPS FLAG 0 (0-99); PLATELET COUNT 70 10^3/uL (150-400); RED BLOOD CELL COUNT 2.56 10^6/uL (4.18-5.33)
[2017-02-05 13:20] LABS: RED CELL DISTRIBUTION WIDTH 22.2 % (11.5-15.2)
[2017-02-05 14:32] LABS: MACROCYTES 1+; MICROCYTES 1+; PLATELET ESTIMATE DECREASED (ADEQ); POLYCHROMASIA 1+
[2017-02-05 14:33] LABS: ECHINOCYTES 1+
--- NOTE | 2017-02-05 16:30 | HOSPPROG ---
Hospitalist Progress Note Assessment/Plan: * Septic shock - weaning off Levophed -started midodrine * Anastomotic leak after sigmoid resection -s/p ileostomy * Peritonitis - polymicrobial -s/p 3 weeks IV Zosyn * Retroperitoneal bleed s/p embolization x 2 -repeat CT a/p - looks same * Acute respiratory failure -continue weaning trials -proceed with trach if no extubation in next couple of days * ARF - hemodialysis -ischemic due to cardiac arrest -prognosis for renal recovery good * s/p PEA arrest * Morbid obesity - BMI 41 * Increased LFT due to shock liver -improving * Afib - PO amiodarone * Thrombocytopenia -likely consumptive Subjective: no events Objective: Vital Signs Temp Pulse Resp BP Pulse Ox 37.1 C 96 23 H 110/48 L 97 02/05/17 16:00 02/05/17 16:00 02/05/17 16:00 02/05/17 16:00 02/05/17 16:00 Laboratory Results 02/05/17 13:12 02/05/17 05:00 02/04/17 02/05/17 02/06/17 05:59 05:59 05:59 Intake Total 2784 2369.2 Output Total 600 1525 Balance 2184 844.2 PT 16.0 SEC (12.0-15.0) H 02/03/17 03:38 INR 1.28 (0.83-1.16) H 02/03/17 03:38 d/w Dr. Zamora - ICU rounds - relatively stable today IV levophed - weaning - Physical Exam Constitutional: no apparent distress, appears nourished, not in pain Eyes: icteric sclera Cardiovascular: regular rate and rhythym, no murmur, rub, or gallop, edema (3+) , No JVD Respiratory: no respiratory distress, no rales or rhonchi, clear to auscultation Gastrointestinal: normoactive bowel sounds, soft, non-tender abdomen, no palpable masses Skin: no rashes or abrasions, no fluctuance, no induration, other (pale/ jaundiced) Neurologic: other (intubated and sedated. follows commands), No AAOx3 ICD10 Worksheet Patient Problems: Problems Problem Status Onset Atrial fibrillation Acute Diverticulitis Acute
--- NOTE | 2017-02-05 16:35 | PDINTPN ---
[employer] Operator Progress Note Assessment/Plan: Assessment/plan: 71 F with diverticulitis admitted 01/04 with abdominal pain and had robotic sigmoid hemicolectomy. There were no obvious complications and she was sent to the floor, but developed increasing pain and somnolence so was transferred to the ICU 01/[address] revealing an 11 cm pelvic hematoma and extraluminal air. She returned to the OR for evacuation of the hematoma and creation of an ileostomy. She was extubated the next morning, but developed atrial fibrillation , which she may have had twice in previous years (family was uncertain). She has remained hospitalized since with multiple complications and MOF. * Encephalopathy presumed to be related to multiorgan failure and multiple complications. no evidence of CVA. Follows simple commands * Respiratory failure with hypoxemia- initially related to anastamotic leak then pain control, ineffective respirations and possibly pulmonary edema 2/2 NANCY and afib. She later developed HAP with pseudomonas in her Bcx and was treated with Abx for several weeks. She was first re-intubated 01/09, followed by eventual extubation, but again re-intubated 01/25/17 with code blue. Her vent requirements are minimal but that puts her at vent day #9 (ignoring previous events). She continues to increase her weaning time, though ultimately may need a trach. I expect she will extubate one way or another soon * Hypotension- off and on at low dose; related to volume removal on HD/CRRT. Agree with re-attempt at removal today. No signs of bleeding, sepsis, cardiogenic shock * Afib with RVR. She was initially treated with amiodarone, followed by a brief trial of esmolol (dropped BP). She got one dose of Digoxin on 01/08, but worsening renal function made that a less desirable choice. Diltiazem was added 01/09 with mild success- HR 140-160 and no drop in BP. Cards following and rate control with oral amiodarone and metoprolol prn * Peritonitis following sigmoid resection complicated by anastamotic leak. Afebrile and decreased wbc without intervention. Continue observation and fu cultures. Started TF without difficulty and TPN dc'd. 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 She remains dialysis dependent (either CRRT or HD), but was previously off HD prior to hger arrest. Renal said to expect return to non- dialysis dependance eventually. * Transaminitis- she had a small increase in AST/ALT likely 2/2 decreased perfusion early in her course, but a substantial increase after her code. Continue periodic checks. TB also from blood re-absorption * Retroperitoneal bleed 2/2?- she has been embolized twice- 01/26 and 01/29 and transfused last on 01/29 with stable Hct. Hold anticoagulation and use SCDs for VTE prophylaxis. Abdo CT without change in retroperitoneal hemorrhage * Thrombocytopenia- slowly falling for unclear reasons. No heparins and HIT negative. Remains low but stable. Likely from consumptive coagulopathy related to retroperitoneal bleed. * Code blue 01/25/17 from PEA presumably related to hypovolemia and possibly hypoxia. CPR time not fully clear to me, but this effects prognosis obviously. Will perform more detailed exam once sedation reduced * Nutrition- Started TF as above. She may eventually need PEG but will need to discuss with surgery * ICU prophylaxis- SCDs and pantoprazole * Critical care time at least 45 minutes separate from procedures for a complex patient with evidence of multisystem failure. Additional 45 minutes of family conference today. 02/05/17 16:32 Objective: Vital Signs Temp Pulse Resp BP Pulse Ox 37.1 C 96 23 H 110/48 L 97 02/05/17 16:00 02/05/17 16:00 02/05/17 16:00 02/05/17 16:00 02/05/17 16:00 Laboratory Results 02/05/17 13:12 02/05/17 05:00 02/04/17 02/05/17 02/06/17 05:59 05:59 05:59 Intake Total 2784 2369.2 Output Total 600 1525 Balance 2184 844.2 PT 16.0 SEC (12.0-15.0) H 02/03/17 03:38 INR 1.28 (0.83-1.16) H 02/03/17 03:38 Physical Exam - Physical Exam General Appearance: no apparent distress, obese EENT: PERRL/EOMI, ET tube Neck: supple Respiratory: lungs clear, normal breath sounds, No respiratory distress, No rales, No rhonchi Cardiac/Chest: regular rate, rhythm, edema Abdomen: non-tender, soft, No distended Skin: warm/dry, jaundice Lymphatic: no adenopathy Extremities: pedal edema Neuro/Psych: cognition abnormalities ICD10 Worksheet Patient Problems: Problems Problem Status Onset Atrial fibrillation Acute Diverticulitis Acute
--- NOTE | 2017-02-05 17:09 | SOAPPROG ---
SOAP Progress Note Assessment/Plan: Assessment: Stable to improving, cont wean. D/w patient's family at length Plan: 01/26/17 10:12 01/27/17 08:53 01/28/17 13:28 01/29/17 14:42 01/30/17 14:32 01/31/17 09:42 02/01/17 11:55 02/02/17 17:12 02/03/17 12:19 02/04/17 20:25 02/05/17 17:08 Subjective: No events, CT shows no change in hematoma Objective: Vital Signs Temp Pulse Resp BP Pulse Ox 37.1 C 94 16 110/48 L 97 02/05/17 16:00 02/05/17 16:05 02/05/17 16:05 02/05/17 16:00 02/05/17 16:05 Laboratory Results 02/05/17 13:12 02/05/17 05:00 02/04/17 02/05/17 02/06/17 05:59 05:59 05:59 Intake Total 2784 2369.2 Output Total 600 1525 Balance 2184 844.2 PT 16.0 SEC (12.0-15.0) H 02/03/17 03:38 INR 1.28 (0.83-1.16) H 02/03/17 03:38 Intubated, sedated Abd sl distended, NTTP Inc without erythema Ostomy viable ICD10 Worksheet Patient Problems: Problems Problem Status Onset Atrial fibrillation Acute Diverticulitis Acute - ICD10 Problem Qualifiers (1) Diverticulitis Qualifiers: Diverticulitis site: D Diverticulitis bleeding: D Diverticulitis complication: D
[2017-02-05 17:40] LABS: % IMMATURE GRANULYOCYTES 1.9 % (0.0-1.1); ABSOLUTE IMMATURE GRANULOCYTES 0.23 10^3/uL (0.00-0.10); ADD DIFF? NO; ADD MORPH? YES; ADD SCAN? NO; ATYPICAL LYMPHOCYTE FLAG 20 (0-99); FRAGMENT RBC FLAG 0 (0-99); HEMATOCRIT 25.2 % (38.0-47.0); HEMOGLOBIN 8.3 g/dL (12.6-16.3); LEFT SHIFT FLG 20 (0-99); LIPEMIA HEMOLYSIS FLAG 80 (0-99); MEAN CELL HEMOGLOBIN 30.7 pg (27.9-34.1); MEAN CELL HEMOGLOBIN CONCENTR. 32.9 g/dL (32.4-36.7); MEAN CELL VOLUME 93.3 fL (81.5-99.8); MEAN PLATELET VOLUME 11.1 fL (8.7-11.7); PLATELET CLUMPS FLAG 0 (0-99); PLATELET COUNT 71 10^3/uL (150-400)
[2017-02-05 18:43] LABS: ELLIPTOCYTES 1+; MICROCYTES 1+; PLATELET ESTIMATE DECREASED (ADEQ); POLYCHROMASIA 1+
[2017-02-05 18:44] LABS: MACROCYTES 1+
[2017-02-05] MEDS ORDERED: HEPARIN 50,000 UNIT/10 ML VIAL ONE (20:05)
[2017-02-05 23:34] LABS: BASE EXCESS -0.5 mEq/L (-2.5-2.5); BICARBONATE 22 mEq/L (22-26); MEASURED OXYGEN SATURATION 97 % (92-95); PCO2 30 mmHg (34-38); PO2 85 mmHg (65-75); TCO2 23 mEq/L (23-27)
[2017-02-05 23:41] LABS: CPAP YES; O2 CONCENTRATIION 40 % (0-100); P/F RATIO 213 RATIO; PATIENT RATE 26; PRESSURE SUPPORT 7
[2017-02-06 00:42] LABS: % IMMATURE GRANULYOCYTES 1.7 % (0.0-1.1); ABSOLUTE IMMATURE GRANULOCYTES 0.21 10^3/uL (0.00-0.10); ADD DIFF? NO; ADD MORPH? YES; ADD SCAN? NO; ATYPICAL LYMPHOCYTE FLAG 30 (0-99); FRAGMENT RBC FLAG 0 (0-99); HEMATOCRIT 24.3 % (38.0-47.0); HEMOGLOBIN 8.2 g/dL (12.6-16.3); LEFT SHIFT FLG 10 (0-99); LIPEMIA HEMOLYSIS FLAG 80 (0-99); MEAN CELL HEMOGLOBIN 31.3 pg (27.9-34.1); MEAN CELL HEMOGLOBIN CONCENTR. 33.7 g/dL (32.4-36.7); MEAN CELL VOLUME 92.7 fL (81.5-99.8); MEAN PLATELET VOLUME 11.5 fL (8.7-11.7); PLATELET CLUMPS FLAG 0 (0-99); PLATELET COUNT 81 10^3/uL (150-400); RED BLOOD CELL COUNT 2.62 10^6/uL (4.18-5.33)
[2017-02-06] MEDS: ACETAMINOPHEN 650 MG/20.3 ML UDCUP TUBE PRN (02:15)
[2017-02-06 02:27] LABS: HYPOCHROMIA 1+; MACROCYTES 1+; MICROCYTES 1+; PLATELET ESTIMATE DECREASED (ADEQ); POLYCHROMASIA 1+; ROULEAUX PRESENT
[2017-02-06] MEDS: PROPOFOL/EMULSION 100 ML IV SCH ×2 (05:29→22:10)
[2017-02-06 05:52] LABS: % IMMATURE GRANULYOCYTES 1.4 % (0.0-1.1); ABSOLUTE IMMATURE GRANULOCYTES 0.18 10^3/uL (0.00-0.10); ADD DIFF? NO; ADD MORPH? YES; ADD SCAN? NO; ATYPICAL LYMPHOCYTE FLAG 30 (0-99); FRAGMENT RBC FLAG 0 (0-99); HEMATOCRIT 24.7 % (38.0-47.0); HEMOGLOBIN 8.1 g/dL (12.6-16.3); LEFT SHIFT FLG 10 (0-99); LIPEMIA HEMOLYSIS FLAG 80 (0-99); MEAN CELL HEMOGLOBIN 30.5 pg (27.9-34.1); MEAN CELL HEMOGLOBIN CONCENTR. 32.8 g/dL (32.4-36.7); MEAN CELL VOLUME 92.9 fL (81.5-99.8); MEAN PLATELET VOLUME 11.5 fL (8.7-11.7); PLATELET CLUMPS FLAG 0 (0-99); PLATELET COUNT 90 10^3/uL (150-400); RED BLOOD CELL COUNT 2.66 10^6/uL (4.18-5.33)
[2017-02-06 06:01] LABS: ALANINE AMINOTRANSFERASE 203 IU/L (9-52); ALBUMIN 2.9 g/dL (3.5-5.0); ALKALINE PHOSPHATASE 344 IU/L (38-126); ANION GAP 12 mEq/L (8-16); ASPARTATE AMINOTRANSFERASE 122 IU/L (14-46); BILIRUBIN,TOTAL 12.6 mg/dL (0.1-1.4); CALCIUM 8.9 mg/dL (8.5-10.4); CARBON DIOXIDE 23 mEq/l (22-31); CHLORIDE 97 mEq/L (97-110); GLOMERULAR FILTRATION RATE 24; GLUCOSE 89 mg/dL (70-100); POTASSIUM 5.5 mEq/L (3.5-5.2); RED CELL DISTRIBUTION WIDTH 22.1 % (11.5-15.2); SODIUM 132 mEq/L (134-144); TOTAL PROTEIN 6.4 g/dL (6.3-8.2)
[2017-02-06 06:24] LABS: HYPOCHROMIA 1+; MACROCYTES 2+; MICROCYTES 1+; PLATELET ESTIMATE DECREASED (ADEQ); ROULEAUX PRESENT
[2017-02-06 06:41] LABS: BILIRUBIN-CONJUGATED 11.4 mg/dL (0.0-0.5); BILIRUBIN-UNCONJUGATED 1.2 mg/dL (0.0-1.1)
[2017-02-06] MEDS: ALBUMIN 25% 100 ML IV PRN (07:30)
[2017-02-06] MEDS: ALBUTEROL 200 PUFFS/18 GM MDI IH SCH ×4 (08:07→20:00)
[2017-02-06] MEDS: CHLORHEXIDINE GLUCONATE 15 ML UDL PO SCH ×2 (08:51→22:10)
[2017-02-06] MEDS: LANSOPRAZOLE SUSP 30MG/10ML UDSYR (Adult) TUBE SCH (08:51)
[2017-02-06] MEDS: NOREPINEPHRINE/NS 500 ML IV SCH (08:51)
[2017-02-06] MEDS: MIDODRINE HCL 5 MG TAB TUBE SCH ×3 (08:51→16:36)
[2017-02-06] MEDS: SODIUM CITRATE 4% 5 ML in SYRINGE 0 ML DIAL PRN (11:15)
--- NOTE | 2017-02-06 13:24 | SOAPPROG ---
SOAP Progress Note Assessment/Plan: Assessment: 1. NANCY. Ischemic due to cardiac arrest. Compression of R kidney/possible obstruction but this was her atrophic kidney, likely minimal impact. Anuric. Unable to use CRRT due to Ca shortage and clotting of system w/o Ca. Continue daily dialysis. Prognosis for renal recovery is still good. Excellent functioning L kidney, atrophic R but b/l creat 1 prior to arrest 01/25. 2. Hypotension. Multifactorial. Start midodrine to minimize need for IV pressors. Increase to 10mg TID. 3. Hyponatremia. Stable. Off free H2O flushes. 4. Shock liver. ALT/AST better, TBili slowly coming down. 5. Respiratory fx. Per pulm. T-piece trial later today. Plan: 02/06/17 13:23 Subjective: Off levophed this am. Had dialysis this am, 2.5 L removed. On CPAP trial. Objective: Vital Signs Temp Pulse Resp BP Pulse Ox 36.9 C 103 H 29 H 156/60 H 99 02/06/17 11:44 02/06/17 12:09 02/06/17 11:44 02/06/17 12:09 02/06/17 11:44 Laboratory Results 02/06/17 05:34 02/06/17 05:34 02/05/17 02/06/17 02/07/17 05:59 05:59 05:59 Intake Total 2369.2 2003.5 Output Total 1525 400 150 Balance 844.2 1603.5 -150 PT 16.0 SEC (12.0-15.0) H 02/03/17 03:38 INR 1.28 (0.83-1.16) H 02/03/17 03:38 Sedated but slightly more alert. Intubated, on CPAP RRR, no m/g/r CTAB Abdom obese, soft, nt 3-4+ LE and abdom wall pitting edema ICD10 Worksheet Patient Problems: Problems Problem Status Onset Atrial fibrillation Acute Diverticulitis Acute
--- NOTE | 2017-02-06 13:25 | SOAPPROG ---
SOAP Progress Note Assessment/Plan: Assessment: Stable to improving, poss extubation in AM per CC Plan: 01/26/17 10:12 01/27/17 08:53 01/28/17 13:28 01/29/17 14:42 01/30/17 14:32 01/31/17 09:42 02/01/17 11:55 02/02/17 17:12 02/03/17 12:19 02/04/17 20:25 02/05/17 17:08 02/06/17 13:24 Subjective: No events Objective: Vital Signs Temp Pulse Resp BP Pulse Ox 36.9 C 103 H 29 H 156/60 H 99 02/06/17 11:44 02/06/17 12:09 02/06/17 11:44 02/06/17 12:09 02/06/17 11:44 Laboratory Results 02/06/17 05:34 02/06/17 05:34 02/05/17 02/06/17 02/07/17 05:59 05:59 05:59 Intake Total 2369.2 2003.5 Output Total 1525 400 150 Balance 844.2 1603.5 -150 PT 16.0 SEC (12.0-15.0) H 02/03/17 03:38 INR 1.28 (0.83-1.16) H 02/03/17 03:38 Intubated, sedated Abd sl distended Inc without erythema, min granulation Ostomy viable ICD10 Worksheet Patient Problems: Problems Problem Status Onset Atrial fibrillation Acute Diverticulitis Acute - ICD10 Problem Qualifiers (1) Diverticulitis Qualifiers: Diverticulitis site: D Diverticulitis bleeding: D Diverticulitis complication: D
--- NOTE | 2017-02-06 14:24 | PDINTPN ---
Mold Capper Helper Progress Note Assessment/Plan: Assessment/plan: 71 F with diverticulitis admitted 01/04 with abdominal pain and had robotic sigmoid hemicolectomy. There were no obvious complications and she was sent to the floor, but developed increasing pain and somnolence so was transferred to the ICU 01/[address] revealing an 11 cm pelvic hematoma and extraluminal air. She returned to the OR for evacuation of the hematoma and creation of an ileostomy. She was extubated the next morning, but developed atrial fibrillation , which she may have had twice in previous years (family was uncertain). She has remained hospitalized since with multiple complications and MOF. * Encephalopathy presumed to be related to multiorgan failure and multiple complications. no evidence of CVA. Follows simple commands * Respiratory failure with hypoxemia- initially related to anastamotic leak then pain control, ineffective respirations and possibly pulmonary edema 2/2 NANCY and afib. She later developed HAP with pseudomonas in her Bcx and was treated with Abx for several weeks. She was first re-intubated 01/09, followed by eventual extubation, but again re-intubated 01/25/17 with code blue. Her vent requirements are minimal but that puts her at vent day #10 (ignoring previous events). After HD today will try extended wean today and possible extubation in AM. * Hypotension- off and on at low dose; related to volume removal on HD/CRRT. Agree with re-attempt at removal today. No signs of bleeding, sepsis, cardiogenic shock. Planning volume removal of 2.5 kg today. May need to increase midodrine to 10 tid * Afib with RVR. She was initially treated with amiodarone, followed by a brief trial of esmolol (dropped BP). She got one dose of Digoxin on 01/08, but worsening renal function made that a less desirable choice. Diltiazem was added 01/09 with mild success- HR 140-160 and no drop in BP. Cards following and rate control with oral amiodarone and metoprolol prn * Peritonitis following sigmoid resection complicated by anastamotic leak. Afebrile and decreased wbc without intervention. Continue observation and fu cultures. Started TF without difficulty and TPN dc'd. 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 She remains dialysis dependent (either CRRT or HD), but was previously off HD prior to her arrest. Renal said to expect return to non- dialysis dependance eventually, but remains anuric at the moment. * Transaminitis- she had a small increase in AST/ALT likely 2/2 decreased perfusion early in her course, but a substantial increase after her code. Continue periodic checks. TB also from blood re-absorption * Retroperitoneal bleed 2/2?- she has been embolized twice- 01/26 and 01/29 and transfused last on 01/29 with stable Hct. Hold anticoagulation and use SCDs for VTE prophylaxis. Abdo CT without change in retroperitoneal hemorrhage. DC Q6 hr HCT * Thrombocytopenia- slowly falling for unclear reasons. No heparins and HIT negative. Remains low but stable. Likely from consumptive coagulopathy related to retroperitoneal bleed. Slowly recovering * Code blue 01/25/17 from PEA presumably related to hypovolemia and possibly hypoxia. CPR time not fully clear to me, but this effects prognosis obviously. Will perform more detailed exam once sedation reduced * Nutrition- Started TF as above. She may eventually need PEG but will need to discuss with surgery * ICU prophylaxis- SCDs and pantoprazole * Critical care time at least 45 minutes separate from procedures for a complex patient with evidence of multisystem failure. 02/05/17 16:32 02/06/17 14:21 Objective: Vital Signs Temp Pulse Resp BP Pulse Ox 36.9 C 101 H 26 H 92/55 L 99 02/06/17 11:44 02/06/17 14:00 02/06/17 14:00 02/06/17 14:00 02/06/17 14:00 Laboratory Results 02/06/17 05:34 02/06/17 05:34 02/05/17 02/06/17 02/07/17 05:59 05:59 05:59 Intake Total 2369.2 2003.5 Output Total 1525 400 150 Balance 844.2 1603.5 -150 PT 16.0 SEC (12.0-15.0) H 02/03/17 03:38 INR 1.28 (0.83-1.16) H 02/03/17 03:38 Physical Exam - Physical Exam General Appearance: no apparent distress, obese EENT: PERRL/EOMI Neck: supple Respiratory: lungs clear, normal breath sounds, No respiratory distress Cardiac/Chest: regular rate, rhythm, edema Abdomen: non-tender, soft, No distended Skin: warm/dry, No cyanosis Lymphatic: no adenopathy Extremities: pedal edema Neuro/Psych: No abnormal music manager II-XII ICD10 Worksheet Patient Problems: Problems Problem Status Onset Atrial fibrillation Acute Diverticulitis Acute
--- NOTE | 2017-02-06 16:06 | HOSPPROG ---
Hospitalist Progress Note Assessment/Plan: * Septic shock - weaning off Levophed -started midodrine * Anastomotic leak after sigmoid resection -s/p ileostomy * Peritonitis - polymicrobial -s/p 3 weeks IV Zosyn * Retroperitoneal bleed s/p embolization x 2 -repeat CT a/p - looks same * Acute respiratory failure -continue weaning trials -proceed with trach if no extubation in next couple of days * ARF - hemodialysis -ischemic due to cardiac arrest -prognosis for renal recovery good * s/p PEA arrest * Morbid obesity - BMI 41 * Increased LFT due to shock liver -improving * Afib - PO amiodarone * Thrombocytopenia -likely consumptive Subjective: No new events Objective: Vital Signs Temp Pulse Resp BP Pulse Ox 36.9 C 101 H 26 H 92/55 L 99 02/06/17 11:44 02/06/17 14:00 02/06/17 14:00 02/06/17 14:00 02/06/17 14:00 Laboratory Results 02/06/17 05:34 02/06/17 05:34 02/05/17 02/06/17 02/07/17 05:59 05:59 05:59 Intake Total 2369.2 2003.5 Output Total 1525 400 150 Balance 844.2 1603.5 -150 PT 16.0 SEC (12.0-15.0) H 02/03/17 03:38 INR 1.28 (0.83-1.16) H 02/03/17 03:38 IV levophed gtt - still requiring d/w Dr. Zamora - updated status - Physical Exam Constitutional: no apparent distress, appears nourished, not in pain Cardiovascular: regular rate and rhythym, no murmur, rub, or gallop, edema Respiratory: no respiratory distress, no rales or rhonchi, clear to auscultation Gastrointestinal: normoactive bowel sounds, soft, non-tender abdomen, no palpable masses Skin: no rashes or abrasions, no fluctuance, no induration, other (pale and jaundiced) Neurologic: No weakness, No numbness Psychiatric: encephalopathic, other (following some commands on vent), No agitated ICD10 Worksheet Patient Problems: Problems Problem Status Onset Atrial fibrillation Acute Diverticulitis Acute
[2017-02-07 07:50] LABS: % IMMATURE GRANULYOCYTES 2.2 % (0.0-1.1); ABSOLUTE IMMATURE GRANULOCYTES 0.24 10^3/uL (0.00-0.10); ADD DIFF? NO; ADD MORPH? YES; ADD SCAN? NO; ATYPICAL LYMPHOCYTE FLAG 40 (0-99); FRAGMENT RBC FLAG 30 (0-99); HEMATOCRIT 23.5 % (38.0-47.0); HEMOGLOBIN 7.9 g/dL (12.6-16.3); LEFT SHIFT FLG 20 (0-99); LIPEMIA HEMOLYSIS FLAG 80 (0-99); MEAN CELL HEMOGLOBIN 31.3 pg (27.9-34.1); MEAN CELL HEMOGLOBIN CONCENTR. 33.6 g/dL (32.4-36.7); MEAN CELL VOLUME 93.3 fL (81.5-99.8); MEAN PLATELET VOLUME 11.4 fL (8.7-11.7); PLATELET CLUMPS FLAG 10 (0-99); PLATELET COUNT 120 10^3/uL (150-400); RED BLOOD CELL COUNT 2.52 10^6/uL (4.18-5.33)
[2017-02-07] MEDS: ALBUTEROL 200 PUFFS/18 GM MDI IH SCH ×4 (08:10→19:45)
[2017-02-07 08:14] LABS: ALANINE AMINOTRANSFERASE 169 IU/L (9-52); ALBUMIN 2.9 g/dL (3.5-5.0); ALKALINE PHOSPHATASE 356 IU/L (38-126); ANION GAP 10 mEq/L (8-16); ASPARTATE AMINOTRANSFERASE 110 IU/L (14-46); BILIRUBIN,TOTAL 11.3 mg/dL (0.1-1.4); CARBON DIOXIDE 26 mEq/l (22-31); CHLORIDE 97 mEq/L (97-110); CREATININE 1.7 mg/dL (0.6-1.0); GLOMERULAR FILTRATION RATE 30; GLUCOSE 95 mg/dL (70-100); POTASSIUM 4.9 mEq/L (3.5-5.2); SODIUM 133 mEq/L (134-144); TOTAL PROTEIN 6.1 g/dL (6.3-8.2)
[2017-02-07 08:16] LABS: RED CELL DISTRIBUTION WIDTH 21.9 % (11.5-15.2)
[2017-02-07 08:19] LABS: BILIRUBIN-CONJUGATED 10.1 mg/dL (0.0-0.5); BILIRUBIN-UNCONJUGATED 1.2 mg/dL (0.0-1.1)
[2017-02-07] MEDS: MIDODRINE HCL 5 MG TAB TUBE SCH ×3 (08:23→15:56)
[2017-02-07] MEDS: PROPOFOL/EMULSION 100 ML IV SCH ×2 (08:23→15:50)
[2017-02-07] MEDS: CHLORHEXIDINE GLUCONATE 15 ML UDL PO SCH ×2 (08:24→20:20)
[2017-02-07] MEDS: LANSOPRAZOLE SUSP 30MG/10ML UDSYR (Adult) TUBE SCH (08:24)
[2017-02-07 11:35] LABS: MACROCYTES 2+; MICROCYTES 1+; PLATELET ESTIMATE DECREASED (ADEQ)
--- NOTE | 2017-02-07 12:00 | SOAPPROG ---
SOAP Progress Note Assessment/Plan: Assessment: 1. NANCY. Ischemic due to cardiac arrest. Compression of R kidney/possible obstruction but this was her atrophic kidney, likely minimal impact. Starting to make a little urine. Unable to use CRRT due to Ca shortage and clotting of system w/o Ca. Continue daily dialysis. Check Mg, PO4. Prognosis for renal recovery is still good. Excellent functioning L kidney, atrophic R but b/l creat 1 prior to arrest 01/25. 2. Hypotension. Multifactorial. [id number] TID. CCS to change propofol to precedex. 3. Hyponatremia. Stable. Off free H2O flushes. 4. Shock liver. ALT/AST better, TBili slowly coming down. 5. Respiratory fx. Per pulm. T-piece trial earlier today. Plan: 02/06/17 13:23 02/07/17 11:59 02/07/17 12:00 Subjective: Required levophed again over night. Tolerated CPAP for several hours and then T-piece this am. Objective: Vital Signs Temp Pulse Resp BP Pulse Ox 36.6 C 93 28 H 120/45 L 97 02/07/17 08:00 02/07/17 11:00 02/07/17 11:00 02/07/17 11:00 02/07/17 11:00 Microbiology 02/01/17 11:30 Blood Culture - Final Blood 02/01/17 11:30 Blood Culture - Final Blood Laboratory Results 02/07/17 05:00 02/07/17 05:00 02/06/17 02/07/17 02/08/17 05:59 05:59 05:59 Intake Total 2003.5 991 Output Total 400 350 Balance 1603.5 641 PT 16.0 SEC (12.0-15.0) H 02/03/17 03:38 INR 1.28 (0.83-1.16) H 02/03/17 03:38 Slightly jaundiced, sedated, intubated wf RRR, no m/g/r CTAB Abdom obese, +ostomy, multiple wounds bandaged, nontender Bladder scan ~50-80cc 3-4+ LE pitting edema ICD10 Worksheet Patient Problems: Problems Problem Status Onset Atrial fibrillation Acute Diverticulitis Acute
[2017-02-07] MEDS: DEXMEDETOMIDINE HCL 400 MCG in NS 100 ML IV SCH ×2 (12:20→23:15)
[2017-02-07] MEDS ORDERED: ALBUMIN 25% 100 ML SOLN IV ONE (13:11)
[2017-02-07] MEDS ORDERED: ALBUMIN 25% 100 ML IV ONE (13:30)
--- NOTE | 2017-02-07 14:02 | PDINTPN ---
Processing Analyst Progress Note Assessment/Plan: Assessment/plan: 71 F with diverticulitis admitted 01/04 with abdominal pain and had robotic sigmoid hemicolectomy. There were no obvious complications and she was sent to the floor, but developed increasing pain and somnolence so was transferred to the ICU 01/[address] revealing an 11 cm pelvic hematoma and extraluminal air. She returned to the OR for evacuation of the hematoma and creation of an ileostomy. She was extubated the next morning, but developed atrial fibrillation , which she may have had twice in previous years (family was uncertain). She has remained hospitalized since with multiple complications and MOF. * Encephalopathy presumed to be related to multiorgan failure and multiple complications. no evidence of CVA. Follows simple commands, but marginal * Respiratory failure with hypoxemia- initially related to anastamotic leak then pain control, ineffective respirations and possibly pulmonary edema 2/2 NANCY and afib. She later developed HAP with pseudomonas in her Bcx and was treated with Abx for several weeks. She was first re-intubated 01/09, followed by eventual extubation, but again re-intubated 01/25/17 with code blue. Her vent requirements are minimal but that puts her at vent day #11 (ignoring previous events). She has made significant strides towards extubation in the last several days, including a highly successful T-piece trial today (yesterday with brief SVT). If today continues to go as well as so far, she can likely extubate in AM. If not plan on trach Wednesday morning. * Hypotension- off and on at low dose; related to volume removal on HD/CRRT. Midodrine increased to 10 tid and off levophed. * Afib with RVR. She was initially treated with amiodarone, followed by a brief trial of esmolol (dropped BP). She got one dose of Digoxin on 01/08, but worsening renal function made that a less desirable choice. Diltiazem was added 01/09 with mild success- HR 140-160 and no drop in BP. Cards following and rate control with oral amiodarone and metoprolol prn. Brief run of SVT 02/06, possibly related to wean. None today * Peritonitis following sigmoid resection complicated by anastamotic leak. Afebrile and decreased wbc without intervention. Continue observation and fu cultures. Started TF without difficulty and TPN dc'd. 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 She remains dialysis dependent (either CRRT or HD), but was previously off HD prior to her arrest. Renal said to expect return to non- dialysis dependance eventually, but remains anuric at the moment. * Transaminitis- she had a small increase in AST/ALT likely 2/2 decreased perfusion early in her course, but a substantial increase after her code. Continue periodic checks. TB also from blood re-absorption * Retroperitoneal bleed 2/2?- she has been embolized twice- 01/26 and 01/29 and transfused last on 01/29 with stable Hct. Hold anticoagulation and use SCDs for VTE prophylaxis. Abdo CT without change in retroperitoneal hemorrhage. Remains stable * Thrombocytopenia- Likely from consumptive coagulopathy related to retroperitoneal bleed. Continues to improve * Code blue 01/25/17 from PEA presumably related to hypovolemia and possibly hypoxia. CPR time not fully clear to me, but this effects prognosis obviously. Guarded neuro prognosis but she intermittently follows commands. * Nutrition- Started TF as above. She may eventually need PEG. Dr. Portillo aware * ICU prophylaxis- SCDs and pantoprazole * Critical care time at least 45 minutes separate from procedures for a complex patient with evidence of multisystem failure. 02/05/17 16:32 02/06/17 14:21 02/07/17 13:57 Objective: Vital Signs Temp Pulse Resp BP Pulse Ox 37.3 C 90 26 H 126/50 H 99 02/07/17 12:00 02/07/17 13:00 02/07/17 13:00 02/07/17 13:00 02/07/17 13:00 Microbiology 02/01/17 11:30 Blood Culture - Final Blood 02/01/17 11:30 Blood Culture - Final Blood Laboratory Results 02/07/17 05:00 02/07/17 05:00 02/06/17 02/07/17 02/08/17 05:59 05:59 05:59 Intake Total 2003.5 991 48 Output Total 400 350 Balance 1603.5 641 48 PT 16.0 SEC (12.0-15.0) H 02/03/17 03:38 INR 1.28 (0.83-1.16) H 02/03/17 03:38 Physical Exam - Physical Exam General Appearance: no apparent distress, obese EENT: PERRL/EOMI Neck: supple Respiratory: lungs clear, normal breath sounds, No respiratory distress Cardiac/Chest: normal peripheral pulses, regular rate, rhythm, edema Abdomen: non-tender, soft, No distended Skin: warm/dry, jaundice, No cyanosis Lymphatic: no adenopathy Extremities: pedal edema Neuro/Psych: No abnormal technologist development II-XII ICD10 Worksheet Patient Problems: Problems Problem Status Onset Atrial fibrillation Acute Diverticulitis Acute
--- NOTE | 2017-02-07 15:34 | HOSPPROG ---
Hospitalist Progress Note Assessment/Plan: * Septic shock - weaning off Levophed -started midodrine * Anastomotic leak after sigmoid resection -s/p ileostomy * Peritonitis - polymicrobial -s/p 3 weeks IV Zosyn * Retroperitoneal bleed s/p embolization x 2 -repeat CT a/p - looks same * Acute respiratory failure -continue weaning trials -proceed with trach if no extubation in next couple of days * ARF - hemodialysis -ischemic due to cardiac arrest -prognosis for renal recovery good * s/p PEA arrest * Morbid obesity - BMI 41 * Increased LFT due to shock liver and hematoma re-absorption -improving * Afib - PO amiodarone * Thrombocytopenia -likely consumptive Subjective: continues with weans. anxious Objective: Vital Signs Temp Pulse Resp BP Pulse Ox 37.3 C 87 24 H 137/75 H 99 02/07/17 12:00 02/07/17 15:00 02/07/17 15:00 02/07/17 15:00 02/07/17 15:00 Microbiology 02/01/17 11:30 Blood Culture - Final Blood 02/01/17 11:30 Blood Culture - Final Blood Laboratory Results 02/07/17 05:00 02/07/17 05:00 02/06/17 02/07/17 02/08/17 05:59 05:59 05:59 Intake Total 2003.5 991 48 Output Total 400 350 Balance 1603.5 641 48 PT 16.0 SEC (12.0-15.0) H 02/03/17 03:38 INR 1.28 (0.83-1.16) H 02/03/17 03:38 D/W Dr Zamora ICU rounds - we will try IV Precedex for weaning tele reviewed - NSR - Physical Exam Constitutional: no apparent distress, appears nourished, not in pain Cardiovascular: regular rate and rhythym, no murmur, rub, or gallop Respiratory: no respiratory distress, no rales or rhonchi, clear to auscultation Gastrointestinal: normoactive bowel sounds, soft, non-tender abdomen, no palpable masses Skin: warm (pale and yellow), No normal color, No erythema, No induration, No rash Neurologic: No AAOx3 Psychiatric: encephalopathic, poor insight, poor judgement, poor memory, No agitated ICD10 Worksheet Patient Problems: Problems Problem Status Onset Atrial fibrillation Acute Diverticulitis Acute
[2017-02-07] MEDS ORDERED: HEPARIN 50,000 UNIT/10 ML VIAL ONE (17:53)
[2017-02-07] MEDS: fentaNYL 100 MCG/2 ML INJ IVP PRN (20:22)
[2017-02-08] MEDS: fentaNYL 100 MCG/2 ML INJ IVP PRN ×2 (00:31→21:55)
[2017-02-08] MEDS: DEXMEDETOMIDINE HCL 400 MCG in NS 100 ML IV SCH ×3 (01:44→11:27)
[2017-02-08] MEDS: NOREPINEPHRINE/NS 500 ML IV SCH (01:44)
[2017-02-08 04:13] LABS: % IMMATURE GRANULYOCYTES 1.5 % (0.0-1.1); ABSOLUTE IMMATURE GRANULOCYTES 0.16 10^3/uL (0.00-0.10); ADD DIFF? NO; ADD MORPH? YES; ADD SCAN? NO; ATYPICAL LYMPHOCYTE FLAG 0 (0-99); FRAGMENT RBC FLAG 0 (0-99); HEMATOCRIT 24.6 % (38.0-47.0); LEFT SHIFT FLG 10 (0-99); LIPEMIA HEMOLYSIS FLAG 80 (0-99); MEAN CELL HEMOGLOBIN 30.7 pg (27.9-34.1); MEAN CELL HEMOGLOBIN CONCENTR. 32.5 g/dL (32.4-36.7); MEAN CELL VOLUME 94.3 fL (81.5-99.8); MEAN PLATELET VOLUME 10.9 fL (8.7-11.7); PLATELET CLUMPS FLAG 0 (0-99); PLATELET COUNT 116 10^3/uL (150-400); RED BLOOD CELL COUNT 2.61 10^6/uL (4.18-5.33)
[2017-02-08 04:15] LABS: RED CELL DISTRIBUTION WIDTH 21.8 % (11.5-15.2)
[2017-02-08 04:40] LABS: ALANINE AMINOTRANSFERASE 160 IU/L (9-52); ALKALINE PHOSPHATASE 354 IU/L (38-126); ANION GAP 12 mEq/L (8-16); ASPARTATE AMINOTRANSFERASE 118 IU/L (14-46); BILIRUBIN,TOTAL 10.9 mg/dL (0.1-1.4); CALCIUM 8.8 mg/dL (8.5-10.4); CARBON DIOXIDE 25 mEq/l (22-31); CHLORIDE 100 mEq/L (97-110); CREATININE 1.6 mg/dL (0.6-1.0); GLOMERULAR FILTRATION RATE 32; GLUCOSE 110 mg/dL (70-100); POTASSIUM 4.6 mEq/L (3.5-5.2); SODIUM 137 mEq/L (134-144); TOTAL PROTEIN 6.3 g/dL (6.3-8.2)
[2017-02-08 04:47] LABS: BILIRUBIN-CONJUGATED 9.6 mg/dL (0.0-0.5); BILIRUBIN-UNCONJUGATED 1.3 mg/dL (0.0-1.1)
[2017-02-08 05:13] LABS: MACROCYTES 2+; MICROCYTES 1+; PLATELET ESTIMATE DECREASED (ADEQ); POLYCHROMASIA 1+
[2017-02-08] MEDS: ALBUTEROL 200 PUFFS/18 GM MDI IH SCH ×4 (05:47→17:06)
[2017-02-08] MEDS ORDERED: ALBUMIN 25% 100 ML IV ONE (07:30)
[2017-02-08] MEDS: CHLORHEXIDINE GLUCONATE 15 ML UDL PO SCH (07:58)
[2017-02-08] MEDS: MIDODRINE HCL 5 MG TAB TUBE SCH ×3 (07:58→15:52)
[2017-02-08] MEDS: LANSOPRAZOLE SUSP 30MG/10ML UDSYR (Adult) TUBE SCH (07:59)
--- NOTE | 2017-02-08 09:34 | PDINTPN ---
Electrical Apprentice Progress Note Assessment/Plan: Assessment: 71 F with diverticulitis admitted 01/04 with abdominal pain and had robotic sigmoid hemicolectomy. There were no obvious complications and she was sent to the floor, but developed increasing pain and somnolence so was transferred to the ICU 01/[address] revealing an 11 cm pelvic hematoma and extraluminal air. She returned to the OR for evacuation of the hematoma and creation of an ileostomy. She was extubated the next morning, but developed atrial fibrillation , which she may have had twice in previous years (family was uncertain). She has remained hospitalized since with multiple complications and MOF. * Encephalopathy: Likely multifactorial, with multiorgan failure and sedation. * Respiratory failure with hypoxemia- initially related to anastamotic leak then pain control, ineffective respirations and possibly pulmonary edema 2/2 NANCY and afib. She later developed HAP with pseudomonas in her Bcx and was treated with Abx for several weeks. She was first re-intubated 01/09, followed by eventual extubation, but again re-intubated 01/25/17 with code blue. CXR with LLL pneumonia and right effusion. Intubated almost 2 weeks. * Afib with RVR. She was initially treated with amiodarone, followed by a brief trial of esmolol (dropped BP). She got one dose of Digoxin on 01/08, but worsening renal function made that a less desirable choice. Diltiazem was added 01/09 with mild success- HR 140-160 and no drop in BP. Cards following and rate control with oral amiodarone and metoprolol prn. Brief run of SVT 02/06, possibly related to wean. Currently NSR. * Peritonitis following sigmoid resection complicated by anastamotic leak. Afebrile and decreased wbc without intervention. Continue observation and fu cultures. Started TF without difficulty and TPN dc'd. 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 She remains dialysis dependent, tolerating daily HD, but was previously off HD prior to her arrest. Renal said to expect return to non- dialysis dependance eventually, but remains anuric at the moment. * Transaminitis- she had a small increase in AST/ALT likely 2/2 decreased perfusion early in her course, but a substantial increase after her code. Continue periodic checks. TB also from blood re-absorption * Retroperitoneal bleed 10/22?- she has been embolized twice- 01/26 and 01/29 and transfused last on 01/29 with stable Hct. Hold anticoagulation and use SCDs for VTE prophylaxis. Abdo CT without change in retroperitoneal hemorrhage. Remains stable * Thrombocytopenia- Likely from consumptive coagulopathy related to retroperitoneal bleed. Continues to improve * Code blue 01/25/17 from PEA presumably related to hypovolemia and possibly hypoxia. CPR time not fully clear to me, but this effects prognosis obviously. Guarded neuro prognosis but she intermittently follows commands. * Nutrition- Started TF as above. She may eventually need PEG. Dr. Portillo aware * ICU prophylaxis- SCDs and pantoprazole * Anemia: Hgb hovering around 8. Plan: Continue full anticoagulation for AF. Transfuse PRBCs.Trial of T-piece again, Bronch, then ? extubate vs. trach. ANDRÉS prior to discharge. Follow WBC, CXR. D/W family. 02/08/17 12:09 Subjective: Intubated, sedated, follows simple commands. Objective: Vital Signs Temp Pulse Resp BP Pulse Ox 36.6 C 72 28 H 102/44 L 98 02/08/17 08:00 02/08/17 08:00 02/08/17 08:00 02/08/17 08:00 02/08/17 08:00 Laboratory Results 02/08/17 04:00 02/08/17 04:00 02/07/17 02/08/17 02/09/17 05:59 05:59 05:59 Intake Total 991 1640.9 Output Total 350 2925 150 Balance 641 -1284.1 -150 PT 16.0 SEC (12.0-15.0) H 02/03/17 03:38 INR 1.28 (0.83-1.16) H 02/03/17 03:38 Physical Exam - Physical Exam General Appearance: No alert (sedated) EENT: normal ENT inspection, scleral icterus (L) Neck: normal inspection Respiratory: decreased breath sounds (bases) Cardiac/Chest: normal peripheral pulses, regular rate, rhythm, edema (1+) Abdomen: normal bowel sounds, non-tender, soft Skin: normal color, warm/dry Extremities: normal inspection Neuro/Psych: No alert (responds to loud voice, follows simple commands.), No normal mood/affect, No oriented x 3 ICD10 Worksheet Patient Problems: Problems Problem Status Onset Atrial fibrillation Acute Diverticulitis Acute
--- NOTE | 2017-02-08 10:45 | SOAPPROG ---
SOAP Progress Note Assessment/Plan: Assessment/Plan: NANCY: Pt likely has developed ATN in setting of large retroperitoneal bleed with significant drop in Hgb as well as cardiac arrest, remains anuric. She also has R atrophic kidney at baseline but Cr prior to arrest 1.1. Unable to do CRRT due to calcium shortage. - HD done today. - Will continue daily HD for now. - Will continue to monitor for renal recovery. - Avoid hypotension. Anemia: pt getting additional PRBCs transfused today, will continue to monitor. Shock: pt remains on pressors, will continue to monitor and wean down further as tolerated. Access: RIJ temp cath almost 2 weeks old, pt remains anuric. Would consider tunneled catheter at this time. Subjective: Pt remains on low dose Levophed. On HD this am, had been doing well and BP tolerating but BP dropped on suctioning and moving her, now Levophed up to 4. Remains on ventilator. Objective: Vital Signs Temp Pulse Resp BP Pulse Ox 36.6 C 77 30 H 122/38 H 93 02/08/17 08:00 02/08/17 10:15 02/08/17 10:15 02/08/17 10:15 02/08/17 10:15 Laboratory Results 02/08/17 04:00 02/08/17 04:00 02/07/17 02/08/17 02/09/17 05:59 05:59 05:59 Intake Total 991 1640.9 Output Total 350 2925 150 Balance 641 -1284.1 -150 PT 16.0 SEC (12.0-15.0) H 02/03/17 03:38 INR 1.28 (0.83-1.16) H 02/03/17 03:38 General: awake, agitated Eyes: EOMI, PERRL OP: intubated CV: RRR Resp: intubated and on vent Abd: Soft, NT Ext: trace edema BLE Neuro: CN II-XII grossly intact Access: RIJ temp cath placed 01/26/17 ICD10 Worksheet Patient Problems: Problems Problem Status Onset Atrial fibrillation Acute Diverticulitis Acute
--- NOTE | 2017-02-08 11:23 | SOAPPROG ---
SOAP Progress Note Assessment/Plan: Assessment: Stable to improving, poss extubation today. Plan: 01/26/17 10:12 01/27/17 08:53 01/28/17 13:28 01/29/17 14:42 01/30/17 14:32 01/31/17 09:42 02/01/17 11:55 02/02/17 17:12 02/03/17 12:19 02/04/17 20:25 02/05/17 17:08 02/06/17 13:24 02/08/17 11:22 Subjective: No events Objective: Vital Signs Temp Pulse Resp BP Pulse Ox 36.5 C 67 28 H 138/50 H 97 02/08/17 11:00 02/08/17 11:00 02/08/17 11:00 02/08/17 11:00 02/08/17 11:00 Laboratory Results 02/08/17 04:00 02/08/17 04:00 02/07/17 02/08/17 02/09/17 05:59 05:59 05:59 Intake Total 991 1640.9 Output Total 350 2925 2650 Balance 641 -1284.1 -2650 PT 16.0 SEC (12.0-15.0) H 02/03/17 03:38 INR 1.28 (0.83-1.16) H 02/03/17 03:38 Intubated, responsive Abd soft, NTTP Inc without erythema Ostomy viable ICD10 Worksheet Patient Problems: Problems Problem Status Onset Atrial fibrillation Acute Diverticulitis Acute - ICD10 Problem Qualifiers (1) Diverticulitis Qualifiers: Diverticulitis site: D Diverticulitis bleeding: D Diverticulitis complication: D
[2017-02-08] MEDS ORDERED: LIDOCAINE 1% 30 ML SDV MISC ONE (11:32)
[2017-02-08] MEDS ORDERED: LIDOCAINE 2% JELLY 5 ML TUBE TP ONE (11:32)
[2017-02-08] MEDS ORDERED: BENZOCAINE UNIT DOSE SPRAY HURRICAINE MM ONE (11:32)
--- NOTE | 2017-02-08 12:55 | GPN ---
[f rep st] PROCEDURE NOTE DATE OF PROCEDURE: 02/08/2017 PROCEDURE: Flexible fiberoptic bronchoscopy. REASON FOR THE PROCEDURE: Respiratory failure, possible retained secretions. PROCEDURE NOTE: The risks and benefits of the procedure were explained to the patient's , wh o agreed to proceed. The entire procedure was performed in the intensive care unit with the patient under blood pressure, EKG, and oximetry monitoring. It was my assessment that there was no risk of airborne infection from the procedure, as the patient has had prior bronchoscopies here in the ICU. 4 cc of 1% lidocaine was instilled into the patient's endotracheal tube. The bronchoscope was adv anced through the endotracheal tube into the trachea, where appropriate position of the endotracheal tube was confirmed. I examined all airways bilaterally, and found a small amount of thin secretion s, particularly in the lower lobes. These were easily suctioned. There was some extrinsic compress ion of the more distal airways of the left lower lobe, but no impact of secretions were seen. A sma ll volume lavage was performed of both lower lobes with return of cloudy fluid. The patient tolerat ed the procedure well, with good saturations throughout. Specimen will be sent for Gram stain and pepe duran. /[id number]/MODL
[2017-02-08] MEDS ORDERED: ALBUTEROL 60 PUFFS/8 GM MDI IH PRN (16:41)
--- NOTE | 2017-02-08 16:53 | HOSPPROG ---
Hospitalist Progress Note Assessment/Plan: assessment: 70-year-old female presents with anastomotic leak and peritonitis complicated by retroperitoneal hematoma and subsequent PEA arrest and septic shock Plan: 1. Septic shock. Evidenced by aLact 11.7, tachypnea/leukocytosis (WBC 31,000)/ tachypnea/source of infxn (pneumonia/peritonitis), resulting in autonomic dysregulation in setting of infxn - cont weaning off Levophed - cont midodrine given liver impairment - s/p IVF/abx 2. Anastomotic leak. S/p sigmoid resection - s/p ileostomy - gen surgery remains primary service 3. Peritonitis. Polymicrobial w/ bacteroides on cx - s/p 3 weeks IV Zosyn 4. Retroperitoneal bleed. Acute, s/p embolization x 2 - repeat CT a/p stable 5. Acute hypoxic respiratory failure. Evidenced by PaO2 28 w/ objective tachypnea, 2/2 hospital assoc PNA and volume overload in setting of ATN - d/w Dr. Smith, recs wean trial today w/ bronch to eval secretions - likely proceed w/ trach over next couple days 6. ATN. 2/2 hypovolemia/hypoperfusion, resulting in ATN and requiring HD - initially ischemic due to cardiac arrest - ongoing volume removal w/ HD, 2.5L goal today 7. PEA arrest. Likely 2/2 hypoxia, approx 7mins CPR w/ return of circulation 8. Morbid obesity. BMI 41, increases risk of morbidity/mortality 9. Shock liver. Acute, monitoring LFTs 10. Paroxysmal Afib. Acute RVR intermittently, fluctuating in and out during exam today (personally interpreted tele) - cont amio 11. Thrombocytopenia. Likely consumptive 12. Hyponatremia. Acute, likely 2/2 hypovolemia, improved Diet. TF via OG Code. Full, family joint-MPOA PPx. High risk, SCDs given bleed Dispo. ADD uncertain Subjective: counseled the patient's son regarding her diagnoses, overall prognosis, strategy to care, and son joint team during rounds Objective: Vital Signs Temp Pulse Resp BP Pulse Ox 36.6 C 77 20 128/89 H 99 02/08/17 15:53 02/08/17 15:53 02/08/17 15:53 02/08/17 15:53 02/08/17 15:53 Laboratory Results 02/08/17 04:00 02/08/17 04:00 02/07/17 02/08/17 02/09/17 05:59 05:59 05:59 Intake Total 991 1640.9 Output Total 350 2925 2650 Balance 641 -1284.1 -2650 PT 16.0 SEC (12.0-15.0) H 02/03/17 03:38 INR 1.28 (0.83-1.16) H 02/03/17 03:38 - Time Spent With Patient Time Spent with Patient: greater than 35 minutes Time Spent with Patient: Greater than 35 minutes spent on this patients care, greater than 50% of time spent counseling, educating, and coordinating care regarding the above mentioned plan. - Physical Exam Constitutional: not in pain, chronically ill appearing Eyes: other ( mildly constricted, fixed centrally) Cardiovascular: irregularly irregular ( intermittently regular), edema, No tachycardia Respiratory: inspiratory crackles ( bilateral bases), No reduced air movement, No expiratory wheeze, No bronchial breath sounds Gastrointestinal: normoactive bowel sounds, other ( ostomy bag in place) Neurologic: other ( not responding to tactile stimuli) ICD10 Worksheet Patient Problems: Problems Problem Status Onset Atrial fibrillation Acute Diverticulitis Acute
[2017-02-08] MEDS ORDERED: HEPARIN 50,000 UNIT/10 ML VIAL ONE (22:57)
[2017-02-09] MEDS ORDERED: D50W 25 GM/50 ML SYR IVP ONE (00:21)
[2017-02-09] MEDS ORDERED: D50W 25 GM/50 ML SYR IVP PRN ×2 (00:43→10:29)
[2017-02-09 06:16] LABS: % IMMATURE GRANULYOCYTES 1.3 % (0.0-1.1); ABSOLUTE IMMATURE GRANULOCYTES 0.17 10^3/uL (0.00-0.10); ADD DIFF? NO; ADD MORPH? YES; ADD SCAN? YES; ATYPICAL LYMPHOCYTE FLAG 0 (0-99); FRAGMENT RBC FLAG 0 (0-99); HEMOGLOBIN 8.7 g/dL (12.6-16.3); LEFT SHIFT FLG 10 (0-99); LIPEMIA HEMOLYSIS FLAG 80 (0-99); MEAN CELL HEMOGLOBIN CONCENTR. 33.5 g/dL (32.4-36.7); MEAN CELL VOLUME 92.5 fL (81.5-99.8); MEAN PLATELET VOLUME 10.7 fL (8.7-11.7); PLATELET CLUMPS FLAG 0 (0-99); PLATELET COUNT 156 10^3/uL (150-400); RED BLOOD CELL COUNT 2.81 10^6/uL (4.18-5.33)
[2017-02-09 06:28] LABS: ALANINE AMINOTRANSFERASE 154 IU/L (9-52); ALBUMIN 3.1 g/dL (3.5-5.0); ALKALINE PHOSPHATASE 292 IU/L (38-126); ANION GAP 11 mEq/L (8-16); ASPARTATE AMINOTRANSFERASE 124 IU/L (14-46); BILIRUBIN,TOTAL 10.7 mg/dL (0.1-1.4); CALCIUM 9.1 mg/dL (8.5-10.4); CARBON DIOXIDE 25 mEq/l (22-31); CHLORIDE 99 mEq/L (97-110); CREATININE 1.6 mg/dL (0.6-1.0); GLOMERULAR FILTRATION RATE 32; GLUCOSE 67 mg/dL (70-100); POTASSIUM 4.8 mEq/L (3.5-5.2); RED CELL DISTRIBUTION WIDTH 20.9 % (11.5-15.2); SODIUM 135 mEq/L (134-144); TOTAL PROTEIN 6.7 g/dL (6.3-8.2)
[2017-02-09 06:34] LABS: BILIRUBIN-CONJUGATED 9.2 mg/dL (0.0-0.5); BILIRUBIN-UNCONJUGATED 1.5 mg/dL (0.0-1.1)
[2017-02-09] MEDS: fentaNYL 100 MCG/2 ML INJ IVP PRN (07:49)
[2017-02-09 07:52] LABS: MACROCYTES 1+; MICROCYTES 1+; PLATELET ESTIMATE ADEQUATE (ADEQ); POLYCHROMASIA 2+
[2017-02-09] MEDS: MIDODRINE HCL 5 MG TAB TUBE SCH ×3 (08:16→15:11)
[2017-02-09] MEDS: LANSOPRAZOLE SUSP 30MG/10ML UDSYR (Adult) TUBE SCH (08:17)
--- NOTE | 2017-02-09 10:49 | SOAPPROG ---
SOAP Progress Note Assessment/Plan: Assessment: 1. Oliguric NANCY Now off pressors. Very overloaded. Will ultimately transfer to outpatient dialysis. Will need tunneled cath at some point. PUF tomorrow. 2. Hemodynamic Improved 3. Anemia Stable 4. LFTS slowly improving 02/09/17 10:49 Subjective: Alert Objective: Vital Signs Temp Pulse Resp BP Pulse Ox 37.2 C 100 16 123/51 H 96 02/09/17 08:00 02/09/17 10:00 02/09/17 10:00 02/09/17 10:00 02/09/17 10:00 Microbiology 02/08/17 12:00 - Final Sputum, Induced/Suctioned 02/04/17 01:05 Blood Culture - Final Blood 02/04/17 01:10 Blood Culture - Final Blood Laboratory Results 02/09/17 06:00 02/08/17 02/09/17 02/10/17 05:59 05:59 05:59 Intake Total 1640.9 126 Output Total 2925 2975 Balance -1284.1 -2849 PT 16.0 SEC (12.0-15.0) H 02/03/17 03:38 INR 1.28 (0.83-1.16) H 02/03/17 03:38 Physical Exam - Physical Exam General Appearance: no apparent distress Neck: other (HD cath exit site ok) Respiratory: decreased breath sounds Cardiac/Chest: regular rate, rhythm Abdomen: other (ostomy) Skin: jaundice Extremities: pedal edema Neuro/Psych: alert ICD10 Worksheet Patient Problems: Problems Problem Status Onset Atrial fibrillation Acute Diverticulitis Acute
[2017-02-09] MEDS: LIDOCAINE 5% 1 EA PATCH TD SCH (11:03)
--- NOTE | 2017-02-09 11:16 | PDINTPN ---
Consulting Analyst Progress Note Assessment/Plan: Assessment: 71 F with diverticulitis admitted 01/04 with abdominal pain and had robotic sigmoid hemicolectomy. There were no obvious complications and she was sent to the floor, but developed increasing pain and somnolence so was transferred to the ICU 01/[address] revealing an 11 cm pelvic hematoma and extraluminal air. She returned to the OR for evacuation of the hematoma and creation of an ileostomy. She was extubated the next morning, but developed atrial fibrillation , which she may have had twice in previous years (family was uncertain). She has remained hospitalized since with multiple complications and MOF. * Encephalopathy: Likely multifactorial, with multiorgan failure and sedation. Improved with extubation. * Respiratory failure with hypoxemia- initially related to anastamotic leak then pain control, ineffective respirations and possibly pulmonary edema 2/2 NANCY and afib. She later developed HAP with pseudomonas in her Bcx and was treated with Abx for several weeks. She was first re-intubated 01/09, followed by eventual extubation, but again re-intubated 01/25/17 with code blue. CXR with LLL pneumonia and right effusion. Intubated almost 2 weeks. * Afib with RVR. She was initially treated with amiodarone, followed by a brief trial of esmolol (dropped BP). She got one dose of Digoxin on 01/08, but worsening renal function made that a less desirable choice. Diltiazem was added 01/09 with mild success- HR 140-160 and no drop in BP. Cards following and rate control with oral amiodarone and metoprolol prn. Brief run of SVT 02/06, possibly related to wean. Currently NSR. * Peritonitis following sigmoid resection complicated by anastamotic leak. Afebrile and decreased wbc without intervention. Continue observation and fu cultures. Started TF without difficulty and TPN dc'd. 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 She remains dialysis dependent, tolerating daily HD, but was previously off HD prior to her arrest. Renal said to expect return to non- dialysis dependance eventually, but remains anuric at the moment. * Transaminitis- she had a small increase in AST/ALT likely 2/2 decreased perfusion early in her course, but a substantial increase after her code. Continue periodic checks. TB also from blood re-absorption. * Retroperitoneal bleed 2/?- she has been embolized twice- 01/26 and 01/29 and transfused last on 01/29 with stable Hct. Hold anticoagulation and use SCDs for VTE prophylaxis. Abdo CT without change in retroperitoneal hemorrhage. Remains stable * Thrombocytopenia- Likely from consumptive coagulopathy related to retroperitoneal bleed. Continues to improve * Code blue 01/25/17 from PEA presumably related to hypovolemia and possibly hypoxia. CPR time not fully clear to me, but this effects prognosis obviously. Guarded neuro prognosis but she intermittently follows commands. * Nutrition- Starting PO. She may eventually need PEG. Dr. Portillo aware * ICU prophylaxis- SCDs and pantoprazole * Anemia: Hgb hovering around 8, up a bit today. * Insomnia: Likely due to ICU stay, delerium * Back Pain: History of spinal stenosis. Plan: Continue full anticoagulation for AF. Continue HD. Place tunnelled catheter. Melatonin for sleep, use Precedex PRN at night. Change to PO narcotics PRN pain. Hopefully pain will improve with increased activity. ANDRÉS prior to discharge. Follow WBC, CXR. D/W family. 02/09/17 11:10 Subjective: Slept poorly. C/O back pain. Objective: Vital Signs Temp Pulse Resp BP Pulse Ox 37.2 C 100 16 123/51 H 96 02/09/17 08:00 02/09/17 10:00 02/09/17 10:00 02/09/17 10:00 02/09/17 10:00 Microbiology 02/08/17 12:00 - Final Sputum, Induced/Suctioned 02/04/17 01:05 Blood Culture - Final Blood 02/04/17 01:10 Blood Culture - Final Blood Laboratory Results 02/09/17 06:00 02/09/17 06:00 02/08/17 02/09/17 02/10/17 05:59 05:59 05:59 Intake Total 1640.9 126 Output Total 2925 2975 Balance -1284.1 -2849 PT 16.0 SEC (12.0-15.0) H 02/03/17 03:38 INR 1.28 (0.83-1.16) H 02/03/17 03:38 CXR: Improved left consolidation. Increased right effusion. Images reviewed. Physical Exam - Physical Exam General Appearance: alert, no apparent distress EENT: normal ENT inspection, pharynx normal Neck: normal inspection Respiratory: decreased breath sounds (bases), No rales, No wheezing Cardiac/Chest: regular rate, rhythm, edema (2+) Abdomen: normal bowel sounds, non-tender, soft, other (good ostomy output) Skin: normal color, warm/dry Extremities: normal inspection Neuro/Psych: alert, normal mood/affect, No oriented x 3 ICD10 Worksheet Patient Problems: Problems Problem Status Onset Atrial fibrillation Acute Diverticulitis Acute
[2017-02-09] MEDS ORDERED: ALBUMIN 25% 100 ML SOLN IV ONE (11:26)
[2017-02-09] MEDS: INSULIN REGULAR HUMAN 100 UNIT/ML SC SCH ×3 (11:31→23:02)
[2017-02-09] MEDS: METOPROLOL TARTRATE 25 MG TAB PO SCH ×2 (11:31→23:03)
[2017-02-09] MEDS ORDERED: AMIODARONE HCL 100 ML IV ONE (11:57)
[2017-02-09] MEDS ORDERED: ALBUMIN 25% 100 ML IV ONE (12:00)
[2017-02-09] MEDS ORDERED: ACETAMINOPHEN 325 MG TAB PO PRN (16:20)
--- NOTE | 2017-02-09 16:55 | SOAPPROG ---
SOAP Progress Note Assessment/Plan: Assessment: Continued improvement. Rehab, start po. Plan: 01/26/17 10:12 01/27/17 08:53 01/28/17 13:28 01/29/17 14:42 01/30/17 14:32 01/31/17 09:42 02/01/17 11:55 02/02/17 17:12 02/03/17 12:19 02/04/17 20:25 02/05/17 17:08 02/06/17 13:24 02/08/17 11:22 02/09/17 16:54 Subjective: Patient c/o back pain. Denies N/V. Objective: Vital Signs Temp Pulse Resp BP Pulse Ox 36.4 C 95 16 134/53 H 97 02/09/17 16:00 02/09/17 16:00 02/09/17 16:00 02/09/17 16:00 02/09/17 16:00 Microbiology 02/08/17 12:00 - Final Sputum, Induced/Suctioned 02/04/17 01:05 Blood Culture - Final Blood 02/04/17 01:10 Blood Culture - Final Blood Laboratory Results 02/09/17 06:00 02/09/17 06:00 02/08/17 02/09/17 02/10/17 05:59 05:59 05:59 Intake Total 1640.9 126 Output Total 2925 2975 Balance -1284.1 -2849 PT 16.0 SEC (12.0-15.0) H 02/03/17 03:38 INR 1.28 (0.83-1.16) H 02/03/17 03:38 Alert, responsive Abd soft, NTTP Inc without erythema Ostomy viable ICD10 Worksheet Patient Problems: Problems Problem Status Onset Atrial fibrillation Acute Diverticulitis Acute - ICD10 Problem Qualifiers (1) Diverticulitis Qualifiers: Diverticulitis site: D Diverticulitis bleeding: D Diverticulitis complication: D
--- NOTE | 2017-02-09 18:52 | HOSPPROG ---
Hospitalist Progress Note Assessment/Plan: assessment: 70-year-old female presents with anastomotic leak and peritonitis complicated by retroperitoneal hematoma and subsequent PEA arrest and septic shock, c/b intermittent hypotension Plan: 1. Septic shock. Evidenced by aLact 11.7, tachypnea/leukocytosis (WBC 31,000)/ tachypnea/source of infxn (pneumonia/peritonitis), resulting in autonomic dysregulation in setting of infxn - cont weaning off Levophed - cont midodrine given liver impairment - s/p IVF/abx 2. Anastomotic leak. S/p sigmoid resection - s/p ileostomy - gen surgery remains primary service 3. Peritonitis. Polymicrobial w/ bacteroides on cx - s/p 3 weeks IV Zosyn 4. Retroperitoneal bleed. Acute, s/p embolization x 2 - repeat CT a/p stable 5. Acute hypoxic respiratory failure. Evidenced by PaO2 28 w/ objective tachypnea, 2/2 hospital assoc PNA and volume overload in setting of ATN - successfully extubated - cont 2L NC 6. ATN. 2/2 hypovolemia/hypoperfusion, resulting in ATN and requiring HD - initially ischemic due to cardiac arrest - volume removal today interrupted by hypotension - tunnelled cath placement tomorrow, will likely require prolonged duration of HD 7. PEA arrest. Likely 2/2 hypoxia, approx 7mins CPR w/ return of circulation 8. Morbid obesity. BMI 41, increases risk of morbidity/mortality 9. Hypotension. Acute worsening of hypotension today during HD, likely 2/2 volume removal as well as intravascular depletion and poor oncotic pressure - did not immediately respond to albumin - vol removal discontinued - goal MAP > 60, use levophed if less 10. Paroxysmal Afib. Acute RVR intermittently, PACs increasing today, has been off metop and amio - give 1 dose IV amio today, then restart PO metoprolol once able to take PO - consider ongoing daily PO amio tomorrow, will review tele and reassess 11. Thrombocytopenia. Likely consumptive 12. Hyponatremia. Acute, likely 2/2 hypovolemia, improved 13. Back pain. Lidoderm patch preferred by patient, attempting to avoid opiates - counseled family that low dose PO oxy IR this evening may help her get better sleep and increase her level of participate tomorrow Diet. CONTINUING EDUCATION SPECIALIST evals, adv PO if able Code. Full, family joint-MPOA PPx. High risk, SCDs given bleed Dispo. ADD uncertain 35 minutes of critical care time spent with patient, at bedside, coordinating patient's care during team ICU rounds, addressing issues as outlined above, patient remains critically ill with high risk of morbidity and/or mortality. Subjective: Patient reports she has ongoing back pain Objective: Vital Signs Temp Pulse Resp BP Pulse Ox 36.4 C 111 H 16 134/52 H 95 02/09/17 16:00 02/09/17 18:00 02/09/17 18:00 02/09/17 18:00 02/09/17 18:00 Microbiology 02/08/17 12:00 - Final Sputum, Induced/Suctioned 02/04/17 01:05 Blood Culture - Final Blood 02/04/17 01:10 Blood Culture - Final Blood Laboratory Results 02/09/17 06:00 02/09/17 06:00 02/08/17 02/09/17 02/10/17 05:59 05:59 05:59 Intake Total 1640.9 126 60 Output Total 2925 2975 1000 Balance -1284.1 -2849 -940 PT 16.0 SEC (12.0-15.0) H 02/03/17 03:38 INR 1.28 (0.83-1.16) H 02/03/17 03:38 - Physical Exam Constitutional: chronically ill appearing, uncomfortable, No not in pain Cardiovascular: systolic murmur ( 1/6 at sternum and apex), tachycardia, edema ( 1+ bilateral lower extremity), No irregularly irregular Respiratory: reduced air movement ( bilateral bases), No expiratory wheeze, No bronchial breath sounds Gastrointestinal: other ( surgical incision site intact with ostomy bag, hypoactive bowel sounds, no tenderness to palpation) Neurologic: other ( alert awake oriented x3 to person and place, not time) Psychiatric: anxious, flat affect, other ( lethargic but arousable), No agitated ICD10 Worksheet Patient Problems: Problems Problem Status Onset Atrial fibrillation Acute Diverticulitis Acute
[2017-02-09] MEDS ORDERED: hydrOXYzine HCL 10 MG TAB PO PRN (18:54)
[2017-02-09] MEDS: PATCH REMOVAL 1 EA PATCH TD SCH (23:03)
[2017-02-09] MEDS: MELATONIN 3 MG TAB PO SCH (23:03)
[2017-02-09] MEDS ORDERED: HEPARIN 10,000 UNIT/10 ML MDV ONE (23:17)
[2017-02-10 05:19] LABS: % IMMATURE GRANULYOCYTES 1.1 % (0.0-1.1); ABSOLUTE IMMATURE GRANULOCYTES 0.15 10^3/uL (0.00-0.10); ADD DIFF? NO; ADD MORPH? YES; ADD SCAN? NO; ATYPICAL LYMPHOCYTE FLAG 10 (0-99); FRAGMENT RBC FLAG 0 (0-99); HEMOGLOBIN 9.4 g/dL (12.6-16.3); LEFT SHIFT FLG 0 (0-99); LIPEMIA HEMOLYSIS FLAG 80 (0-99); MEAN CELL HEMOGLOBIN 30.5 pg (27.9-34.1); MEAN CELL HEMOGLOBIN CONCENTR. 32.4 g/dL (32.4-36.7); MEAN CELL VOLUME 94.2 fL (81.5-99.8); MEAN PLATELET VOLUME 10.7 fL (8.7-11.7); PLATELET CLUMPS FLAG 0 (0-99); PLATELET COUNT 213 10^3/uL (150-400); RED BLOOD CELL COUNT 3.08 10^6/uL (4.18-5.33)
[2017-02-10 05:30] LABS: RED CELL DISTRIBUTION WIDTH 21.3 % (11.5-15.2)
[2017-02-10 05:47] LABS: ALANINE AMINOTRANSFERASE 145 IU/L (9-52); ALBUMIN 3.5 g/dL (3.5-5.0); ALKALINE PHOSPHATASE 290 IU/L (38-126); ANION GAP 14 mEq/L (8-16); ASPARTATE AMINOTRANSFERASE 123 IU/L (14-46); CALCIUM 9.4 mg/dL (8.5-10.4); CARBON DIOXIDE 25 mEq/l (22-31); CHLORIDE 99 mEq/L (97-110); CREATININE 1.7 mg/dL (0.6-1.0); GLOMERULAR FILTRATION RATE 30; GLUCOSE 93 mg/dL (70-100); POTASSIUM 4.4 mEq/L (3.5-5.2); SODIUM 138 mEq/L (134-144); TOTAL PROTEIN 7.1 g/dL (6.3-8.2)
[2017-02-10 05:53] LABS: BILIRUBIN-CONJUGATED 9.4 mg/dL (0.0-0.5); BILIRUBIN-UNCONJUGATED 1.6 mg/dL (0.0-1.1)
[2017-02-10 06:07] LABS: MACROCYTES 2+; MICROCYTES 1+; PLATELET ESTIMATE ADEQUATE (ADEQ); POLYCHROMASIA 1+
[2017-02-10] MEDS ORDERED: HEPARIN 50,000 UNIT/10 ML VIAL ONE ×2 (08:13→14:00)
[2017-02-10] MEDS: INSULIN REGULAR HUMAN 100 UNIT/ML SC SCH ×4 (08:17→21:12)
[2017-02-10] MEDS ORDERED: MIDAZOLAM 2 MG/2 ML VIAL ONE (08:27)
[2017-02-10] MEDS ORDERED: fentaNYL 100 MCG/2 ML INJ ONE (08:27)
--- NOTE | 2017-02-10 08:31 | SOAPPROG ---
SOAP Progress Note Assessment/Plan: Assessment: 1. NANCY. Ischemic due to cardiac arrest. Compression of R kidney/possible obstruction but this was her atrophic kidney, likely minimal impact. Prognosis for renal recovery is still good but timing uncertain. Excellent functioning L kidney, atrophic R but b/l creat 1 prior to arrest 01/25. Tunneled dialysis catheter today. Avoid hypotension, nsaids, iv contrast. HD again tomorrow with UF. 2. Hypotension. Multifactorial. Improved with [id number] TID and cessation of propofol. 3. Malnutrition. Na trending up. May need D5W if not drinking. 4. Hepatitis. ALT/AST/TBili elevated but stable. Shock vs ?some obstruction from hematoma. Plan: 02/06/17 13:23 02/07/17 11:59 02/07/17 12:00 02/10/17 08:27 02/10/17 08:32 02/10/17 08:33 Subjective: No complaints. Had dialysis yesterday. Only 500cc UF. Apparently had some BP lability. Objective: Vital Signs Temp Pulse Resp BP Pulse Ox 37.6 C 110 H 20 86/66 L 100 02/10/17 02:00 02/10/17 06:00 02/10/17 06:00 02/10/17 06:00 02/10/17 06:00 Microbiology 02/08/17 12:00 - Final Sputum, Induced/Suctioned 02/04/17 01:05 Blood Culture - Final Blood 02/04/17 01:10 Blood Culture - Final Blood Laboratory Results 02/10/17 05:00 02/10/17 05:00 02/09/17 02/10/17 02/11/17 05:59 05:59 05:59 Intake Total 126 60 Output Total 2975 1550 Balance -2849 -1490 PT 16.0 SEC (12.0-15.0) H 02/03/17 03:38 INR 1.28 (0.83-1.16) H 02/03/17 03:38 Awake, comfortable, smiling IRIR, no m/g/r CTAB Abdom obese, nontender 3+ LE pitting edema ICD10 Worksheet Patient Problems: Problems Problem Status Onset Atrial fibrillation Acute Diverticulitis Acute
--- NOTE | 2017-02-10 09:32 | POSTOPPROG ---
Post Op Note Date of Operation: 02/10/17 Surgeon: Al Hernandez Anesthesia: IV Sedation Pre-op Diagnosis: Renal failure Post-op Diagnosis: same Indication: Needs dialysis Procedure: Tunneled dialysis catheter, right IJ Findings: 14.5F Palindrome catheter is ready to use. Inf/Abcess present in the surg proc area at time of surgery?: No EBL: Minimal Complications: 0
--- NOTE | 2017-02-10 09:55 | PDINTPN ---
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 There were no obvious complications and she was sent to the floor, but developed increasing pain and somnolence so was transferred to the ICU 01/[address] revealing an 11 cm pelvic hematoma and extraluminal air. She returned to the OR for evacuation of the hematoma and creation of an ileostomy. She was extubated the next morning, but developed atrial fibrillation , which she may have had twice in previous years (family was uncertain). She has remained hospitalized since with multiple complications and MOF. * Encephalopathy: Likely multifactorial, with multiorgan failure and sedation. Improved with extubation. * Respiratory failure with hypoxemia- initially related to anastamotic leak then pain control, ineffective respirations and possibly pulmonary edema 2/2 NANCY and afib. She later developed HAP with pseudomonas in her Bcx and was treated with Abx for several weeks. She was first re-intubated 01/09, followed by eventual extubation, but again re-intubated 01/25/17 with code blue. CXR with LLL pneumonia and right effusion. Intubated almost 2 weeks. * Afib with RVR. She was initially treated with amiodarone, followed by a brief trial of esmolol (dropped BP). She got one dose of Digoxin on 01/08, but worsening renal function made that a less desirable choice. Diltiazem was added 01/09 with mild success- HR 140-160 and no drop in BP. Cards following and rate control with oral amiodarone and metoprolol prn. Brief run of SVT 02/06, possibly related to wean. Currently NSR. * Peritonitis following sigmoid resection complicated by anastamotic leak. Afebrile and decreased wbc without intervention. Continue observation and fu cultures. Started TF without difficulty and TPN dc'd. 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 She remains dialysis dependent, tolerating daily HD, but was previously off HD prior to her arrest. Renal said to expect return to non- dialysis dependance eventually, but remains anuric at the moment. * Transaminitis- she had a small increase in AST/ALT likely 2/2 decreased perfusion early in her course, but a substantial increase after her code. Continue periodic checks. TB also from blood re-absorption. * Retroperitoneal bleed 2/?- she has been embolized twice- 01/26 and 01/29 and transfused last on 01/29 with stable Hct. Hold anticoagulation and use SCDs for VTE prophylaxis. Abdo CT without change in retroperitoneal hemorrhage. Remains stable Hgb up a bit without transfusion. * Thrombocytopenia- Likely from consumptive coagulopathy related to retroperitoneal bleed. Increased markedly last 48 hours. * Code blue 01/25/17 from PEA presumably related to hypovolemia and possibly hypoxia. CPR time not fully clear to me, but this effects prognosis obviously. Guarded neuro prognosis but she intermittently follows commands. * Nutrition- Starting PO. She may eventually need PEG. Dr. Portillo aware * ICU prophylaxis- SCDs and pantoprazole * Anemia: Hgb hovering around 8, up a bit today. * Insomnia: Likely due to ICU stay, delerium * Back Pain: History of spinal stenosis. Plan: Continue HD. Continue melatonin for sleep, use Precedex PRN at night. Change to PO narcotics PRN pain. Hopefully pain will improve with increased activity. ANDRÉS prior to discharge. ? Start SQ heparin for DVT prophylaxis. Follow WBC, CXR. D/ W family. 02/10/17 10:00 Subjective: Slept a bit better last night, but still not a good night's sleep. Denies pain. Objective: Vital Signs Temp Pulse Resp BP Pulse Ox 37.6 C 103 H 22 H 119/50 L 100 02/10/17 02:00 02/10/17 09:02 02/10/17 09:02 02/10/17 09:02 02/10/17 09:02 Microbiology 02/08/17 12:00 - Final Sputum, Induced/Suctioned 02/04/17 01:05 Blood Culture - Final Blood 02/04/17 01:10 Blood Culture - Final Blood Laboratory Results 02/10/17 05:00 02/10/17 05:00 02/09/17 02/10/17 02/11/17 05:59 05:59 05:59 Intake Total 126 60 Output Total 2975 1550 Balance -2849 -1490 PT 16.0 SEC (12.0-15.0) H 02/03/17 03:38 INR 1.28 (0.83-1.16) H 02/03/17 03:38 Physical Exam - Physical Exam General Appearance: alert EENT: normal ENT inspection Neck: normal inspection, other (clean dressing s/p tunnelled catheter) Respiratory: lungs clear Cardiac/Chest: regular rate, rhythm, No edema Abdomen: normal bowel sounds, non-tender Pelvic Exam: normal external exam Skin: normal color, warm/dry Extremities: normal inspection Neuro/Psych: alert, normal mood/affect, oriented x 3 ICD10 Worksheet Patient Problems: Problems Problem Status Onset Atrial fibrillation Acute Diverticulitis Acute
[2017-02-10] MEDS: MIDODRINE HCL 5 MG TAB TUBE SCH ×3 (10:50→18:31)
[2017-02-10] MEDS: AMIODARONE HCL 200 MG TAB PO SCH (10:50)
[2017-02-10] MEDS: LANSOPRAZOLE SUSP 30MG/10ML UDSYR (Adult) TUBE SCH (10:50)
[2017-02-10] MEDS: METOPROLOL TARTRATE 25 MG TAB PO SCH ×2 (10:51→21:11)
[2017-02-10] MEDS: LIDOCAINE 5% 1 EA PATCH TD SCH (11:02)
[2017-02-10] MEDS ORDERED: LIDOCAINE 1% 300 MG/30 ML SDV ONE (12:06)
--- NOTE | 2017-02-10 17:02 | SOAPPROG ---
SOAP Progress Note Assessment/Plan: Assessment: Stable. Continue supportive care. Plan: 01/26/17 10:12 01/27/17 08:53 01/28/17 13:28 01/29/17 14:42 01/30/17 14:32 01/31/17 09:42 02/01/17 11:55 02/02/17 17:12 02/03/17 12:19 02/04/17 20:25 02/05/17 17:08 02/06/17 13:24 02/08/17 11:22 02/09/17 16:54 02/10/17 17:01 Subjective: Pain improved, no N/V Objective: Vital Signs Temp Pulse Resp BP Pulse Ox 37.0 C 104 H 21 H 132/74 H 93 02/10/17 10:00 02/10/17 12:00 02/10/17 12:00 02/10/17 12:00 02/10/17 12:00 Microbiology 02/08/17 12:00 - Final Sputum, Induced/Suctioned Laboratory Results 02/10/17 05:00 02/10/17 05:00 02/09/17 02/10/17 02/11/17 05:59 05:59 05:59 Intake Total 126 60 Output Total 2975 1550 Balance -2849 -1490 PT 16.0 SEC (12.0-15.0) H 02/03/17 03:38 INR 1.28 (0.83-1.16) H 02/03/17 03:38 Alert, NAD Abd soft,NTTP Inc without erythema ICD10 Worksheet Patient Problems: Problems Problem Status Onset Atrial fibrillation Acute Diverticulitis Acute - ICD10 Problem Qualifiers (1) Diverticulitis Qualifiers: Diverticulitis site: D Diverticulitis bleeding: D Diverticulitis complication: D
--- NOTE | 2017-02-10 17:26 | WOCRNPDOC ---
[facility] Advanced Assessment Note - Skin Integrity Problem, Advanced Assess Coccyx Pressure Injury Dressing Type: Open to Air Site Measurement - Head-to-Toe Length X Width X Depth (cm): 6x1x0 Pressure Injury Stage: Stage 1 Pressure Injury Present on Admit: No Skin Integrity Problem Comment: Covered with Alleyvn life. Continue Q2 turns. Please reconsult if wound opens or gets worse. Jolanta STAUFFER in room for care. Right Buttock Dressing Type: Allevyn Life Site Measurement - Head-to-Toe Length X Width X Depth (cm): 2x1x0 Skin Integrity Problem Comment: Presents like a healing contusion. Unknown if this is a healing DTI or a true contusion. It is currently blanching so it will not be considered a pressure injury. Recovered with Allevyn life, but area may be left open to air. Left Buttock Scab Dressing Type: Allevyn Life Exudate Amount: None Integumentary Issue Intervention: Visualized Under Dressing Site Measurement - Head-to-Toe Length X Width X Depth (cm): 1x0.5x0.1 Skin Integrity Problem Comment: Tiny scab in a larger area of peeling skin. Wound is at least one week old. Likely from friction but may have a component of pressure. Too difficult to determine this far past its onset. Applied skin prep olga wound and then wound gel to scab. Covered with allevyn life. May also leave this area open to air in the future. Wound care will not follow. Please reconsult if wound reopens, does not heal or gets worse.
[2017-02-10] MEDS: HEPARIN 5,000 UNIT/0.5 ML SYR SC SCH ×2 (17:31→21:12)
--- NOTE | 2017-02-10 18:39 | HOSPPROG ---
Hospitalist Progress Note Assessment/Plan: assessment: 70-year-old female presents with anastomotic leak and peritonitis complicated by retroperitoneal hematoma and subsequent PEA arrest and septic shock, c/b intermittent hypotension Plan: 1. Septic shock. Evidenced by aLact 11.7, tachypnea/leukocytosis (WBC 31,000)/ tachypnea/source of infxn (pneumonia/peritonitis), resulting in autonomic dysregulation in setting of infxn - off levophed - cont midodrine given liver impairment - s/p IVF/abx 2. Anastomotic leak. S/p sigmoid resection - s/p ileostomy - gen surgery remains primary service - goal is to start enteric nutrition, will need to discuss IR placement of SB feeding tube vs. PEG w/ pt/family 3. Peritonitis. Polymicrobial w/ bacteroides on cx - s/p 3 weeks IV Zosyn 4. Retroperitoneal bleed. Acute, s/p embolization x 2 - repeat CT a/p stable 5. Acute hypoxic respiratory failure. Evidenced by PaO2 28 w/ objective tachypnea, 2/2 hospital assoc PNA and volume overload in setting of ATN - successfully extubated - cont 2L NC 6. ATN. 2/2 hypovolemia/hypoperfusion, resulting in ATN and requiring HD - initially ischemic due to cardiac arrest - volume removal w/ HD - tunnelled cath placement today successful 7. PEA arrest. Likely 2/2 hypoxia, approx 7mins CPR w/ return of circulation 8. Morbid obesity. BMI 41, increases risk of morbidity/mortality 9. Hypotension. Occurs w/ volume removal 2/2 intravascular depletion and poor oncotic pressure - goal MAP > 60, use levophed if less 10. Paroxysmal Afib. Acute RVR intermittently, PACs ongoing - PO amio low dose and metop 11. Thrombocytopenia. Likely consumptive, cont monitoring 12. Hyponatremia. Acute, likely 2/2 hypovolemia, improved 13. Back pain. Lidoderm patch preferred by patient, attempting to avoid opiates - counseled family that low dose PO oxy IR this evening may help her get better sleep and increase her level of participate tomorrow 14. Pleural effusion. Improving in R base on x-ray today (personally interpreted ), no indication for thora Diet. 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 Full, family joint-MPOA PPx. High risk, SCDs given bleed Dispo. ADD uncertain remains high level of medical complexity, high risk morbidity/mortality 2/2 issues outlined above Subjective: back pain persists, poor appetite Objective: Vital Signs Temp Pulse Resp BP Pulse Ox 37.0 C 90 20 122/58 H 99 02/10/17 10:00 02/10/17 18:00 02/10/17 18:00 02/10/17 18:00 02/10/17 18:00 Microbiology 02/08/17 12:00 - Final Sputum, Induced/Suctioned Laboratory Results 02/10/17 05:00 02/10/17 05:00 02/09/17 02/10/17 02/11/17 05:59 05:59 05:59 Intake Total 126 60 200 Output Total 2975 1550 2200 Balance -2849 -1490 -2000 PT 16.0 SEC (12.0-15.0) H 02/03/17 03:38 INR 1.28 (0.83-1.16) H 02/03/17 03:38 - Physical Exam Constitutional: no apparent distress, chronically ill appearing, obese, uncomfortable Eyes: PERRL, EOMI, icteric sclera Cardiovascular: systolic murmur (1/6 at apex), tachycardia, edema (1+ bilat LE) , other (intermittent PACs/ectopy), No irregularly irregular Respiratory: reduced air movement (R base), inspiratory crackles (bilat bases), No expiratory wheeze, No bronchial breath sounds Gastrointestinal: tenderness (mild to moderate depth palpation), No normoactive bowel sounds (hypoactive bowel sounds), No guarding, No distension Neurologic: sensation intact bilaterally, other (AAOx2 (peron and place)), No weakness (motor 5/5 distal bilat LE), No facial droop Psychiatric: not anxious, flat affect, No agitated ICD10 Worksheet Patient Problems: Problems Problem Status Onset Atrial fibrillation Acute Diverticulitis Acute
[2017-02-10] MEDS: MELATONIN 3 MG TAB PO SCH (21:12)
[2017-02-10] MEDS: DEXMEDETOMIDINE HCL 400 MCG in NS 100 ML IV SCH (21:13)
[2017-02-10] MEDS: PATCH REMOVAL 1 EA PATCH TD SCH (21:13)
[2017-02-11 04:38] LABS: ALANINE AMINOTRANSFERASE 151 IU/L (9-52); ALBUMIN 3.3 g/dL (3.5-5.0); ALKALINE PHOSPHATASE 254 IU/L (38-126); ANION GAP 15 mEq/L (8-16); ASPARTATE AMINOTRANSFERASE 117 IU/L (14-46); BILIRUBIN,TOTAL 10.2 mg/dL (0.1-1.4); CALCIUM 9.3 mg/dL (8.5-10.4); CARBON DIOXIDE 23 mEq/l (22-31); CHLORIDE 100 mEq/L (97-110); CREATININE 2.5 mg/dL (0.6-1.0); GLOMERULAR FILTRATION RATE 19; GLUCOSE 103 mg/dL (70-100); POTASSIUM 4.7 mEq/L (3.5-5.2); SODIUM 138 mEq/L (134-144); TOTAL PROTEIN 6.9 g/dL (6.3-8.2)
[2017-02-11 04:45] LABS: BILIRUBIN-UNCONJUGATED 1.2 mg/dL (0.0-1.1)
[2017-02-11 04:48] LABS: % IMMATURE GRANULYOCYTES 1.1 % (0.0-1.1); ABSOLUTE IMMATURE GRANULOCYTES 0.14 10^3/uL (0.00-0.10); ADD DIFF? NO; ADD MORPH? YES; ADD SCAN? NO; ATYPICAL LYMPHOCYTE FLAG 0 (0-99); FRAGMENT RBC FLAG 20 (0-99); HEMATOCRIT 26.9 % (38.0-47.0); HEMOGLOBIN 8.7 g/dL (12.6-16.3); LEFT SHIFT FLG 10 (0-99); LIPEMIA HEMOLYSIS FLAG 80 (0-99); MEAN CELL HEMOGLOBIN CONCENTR. 32.3 g/dL (32.4-36.7); MEAN CELL VOLUME 95.7 fL (81.5-99.8); MEAN PLATELET VOLUME 10.7 fL (8.7-11.7); PLATELET CLUMPS FLAG 0 (0-99); PLATELET COUNT 210 10^3/uL (150-400); RED BLOOD CELL COUNT 2.81 10^6/uL (4.18-5.33)
[2017-02-11 04:51] LABS: RED CELL DISTRIBUTION WIDTH 21.5 % (11.5-15.2)
[2017-02-11 05:35] LABS: HYPOCHROMIA 1+; MICROCYTES 1+; PLATELET ESTIMATE ADEQUATE (ADEQ); POLYCHROMASIA 2+
[2017-02-11] MEDS: DEXMEDETOMIDINE HCL 400 MCG in NS 100 ML IV SCH (05:37)
[2017-02-11] MEDS: HEPARIN 5,000 UNIT/0.5 ML SYR SC SCH ×3 (05:37→21:30)
[2017-02-11] MEDS ORDERED: ALBUMIN 25% 100 ML SOLN IV ONE (07:57)
[2017-02-11] MEDS: INSULIN REGULAR HUMAN 100 UNIT/ML SC SCH ×2 (08:03→12:20)
[2017-02-11] MEDS: MIDODRINE HCL 5 MG TAB TUBE SCH (08:09)
[2017-02-11] MEDS: LIDOCAINE 5% 1 EA PATCH TD SCH (08:09)
[2017-02-11] MEDS: METOPROLOL TARTRATE 25 MG TAB PO SCH ×2 (08:10→21:29)
--- NOTE | 2017-02-11 08:19 | SOAPPROG ---
SOAP Progress Note Assessment/Plan: Assessment: 1. NANCY. Ischemic due to cardiac arrest. Tunneled dialysis catheter placed. Avoid hypotension, nsaids, iv contrast. Volume status much improved, wt down 11kg. High stool output with little intake. Hold HD tomorrow, next Wednesday. 2. Hypotension. Multifactorial. [id number] TID and cessation of propofol. Minimal UF today on dialysis. If BP drops today bolus fluids. 3. Malnutrition. Na stable. Not eating/drinking much. Consider NG/TFs/etc. 4. Hepatitis. ALT/AST/TBili elevated but improving. Shock vs ?some obstruction from hematoma. Plan: 02/06/17 13:23 02/07/17 11:59 02/07/17 12:00 02/10/17 08:27 02/10/17 08:32 02/10/17 08:33 02/11/17 08:15 Subjective: No o/n events. Tunneled HD cath placed yesterday. Just starting on dialysis. BP has dropped into 60s. Has had high stool output. PUF yesterday with 2 L UF. No complaints. Objective: Vital Signs Temp Pulse Resp BP Pulse Ox 37.1 C 58 L 25 H 107/43 L 96 02/11/17 04:00 02/11/17 06:00 02/11/17 06:00 02/11/17 06:00 02/11/17 06:00 Microbiology 02/08/17 12:00 - Final Sputum, Induced/Suctioned Sputum Culture - Final MRSA Laboratory Results 02/11/17 03:45 02/11/17 03:45 02/10/17 02/11/17 02/12/17 05:59 05:59 05:59 Intake Total 60 294 Output Total 1550 2400 Balance -1490 -2106 PT 16.0 SEC (12.0-15.0) H 02/03/17 03:38 INR 1.28 (0.83-1.16) H 02/03/17 03:38 Tired, mildly jaundiced, weak appearing wf in bed Much less interactive today RRR, no m/g/r Decr br sounds in R base, CTA on left Abdom obese, nt 1+ sacral/LE edema ICD10 Worksheet Patient Problems: Problems Problem Status Onset Atrial fibrillation Acute Diverticulitis Acute MRSA (methicillin resistant Staphylococcus aureus) Acute ~02/11/17
[2017-02-11] MEDS ORDERED: ALBUMIN 25% 100 ML IV PRN (09:43)
--- NOTE | 2017-02-11 09:50 | PDINTPN ---
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 There were no obvious complications and she was sent to the floor, but developed increasing pain and somnolence so was transferred to the ICU 01/[address] revealing an 11 cm pelvic hematoma and extraluminal air. She returned to the OR for evacuation of the hematoma and creation of an ileostomy. She was extubated the next morning, but developed atrial fibrillation , which she may have had twice in previous years (family was uncertain). She has remained hospitalized since with multiple complications and MOF. * Encephalopathy: Likely multifactorial, with multiorgan failure and sedation. Improved with extubation. * Respiratory failure with hypoxemia- initially related to anastamotic leak then pain control, ineffective respirations and possibly pulmonary edema 2/2 NANCY and afib. She later developed HAP with pseudomonas in her Bcx and was treated with Abx for several weeks. She was first re-intubated 01/09, followed by eventual extubation, but again re-intubated 01/25/17 with code blue. CXR with LLL pneumonia and right effusion. Intubated almost 2 weeks. * Afib with RVR. She was initially treated with amiodarone, followed by a brief trial of esmolol (dropped BP). She got one dose of Digoxin on 01/08, but worsening renal function made that a less desirable choice. Diltiazem was added 01/09 with mild success- HR 140-160 and no drop in BP. Cards following and rate control with oral amiodarone and metoprolol prn. Brief run of SVT 02/06, possibly related to wean. Currently NSR. * Peritonitis following sigmoid resection complicated by anastamotic leak. Afebrile and decreased wbc without intervention. Continue observation and fu cultures. Started TF without difficulty and TPN dc'd. 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 She remains dialysis dependent, tolerating daily HD, but was previously off HD prior to her arrest. Renal said to expect return to non- dialysis dependance eventually. Made urine for the first time today. * Transaminitis- she had a small increase in AST/ALT likely 2/2 decreased perfusion early in her course, but a substantial increase after her code. Trending down very slowly * Retroperitoneal bleed /?- she has been embolized twice- 01/26 and 01/29 and transfused last on 01/29 with stable Hct. Hold anticoagulation and use SCDs for VTE prophylaxis. Abdo CT without change in retroperitoneal hemorrhage. Remains stable Hgb up a bit without transfusion. * Thrombocytopenia- Likely from consumptive coagulopathy related to retroperitoneal bleed. Stable >200 * Code blue 01/25/17 from PEA presumably related to hypovolemia and possibly hypoxia. CPR time not fully clear to me, but this effects prognosis obviously. Guarded neuro prognosis but she intermittently follows commands. * Nutrition- Starting PO. Hopefully can avoid PEG. * ICU prophylaxis- SCDs and pantoprazole * Anemia: Hgb hovering around 8 * Insomnia: Likely due to ICU stay, delerium. Improved with melatonin, Precedex last night. * Back Pain: History of spinal stenosis. Improved a bit with lidocaine patch and increased activity. * MRSA: In bronch wash. Likely colonizer. Plan: Continue HD, follow urine output. Continue melatonin for sleep, use Precedex PRN at night. PO narcotics PRN pain. Hopefully pain will improve with increased activity. Advance diet as tolerated, hold on feeding tube for now. ANDRÉS prior to discharge. Continue SQ heparin for DVT prophylaxis. Follow WBC, H/H, CXR. D/W family. 02/11/17 09:52 02/11/17 11:32 Subjective: Slept well last night, starting to take more PO. Denies pain. Objective: Vital Signs Temp Pulse Resp BP Pulse Ox 37.1 C 58 L 25 H 107/43 L 96 02/11/17 04:00 02/11/17 06:00 02/11/17 06:00 02/11/17 06:00 02/11/17 06:00 Microbiology 02/08/17 12:00 - Final Sputum, Induced/Suctioned Sputum Culture - Final MRSA Laboratory Results 02/11/17 03:45 02/11/17 03:45 02/10/17 02/11/17 02/12/17 05:59 05:59 05:59 Intake Total 60 294 Output Total 1550 2400 Balance -1490 -2106 PT 16.0 SEC (12.0-15.0) H 02/03/17 03:38 INR 1.28 (0.83-1.16) H 02/03/17 03:38 Microbiology 02/08/17 12:00 Sputum, Induced/Suctioned - Final 02/08/17 12:00 Sputum, Induced/Suctioned Sputum Culture - Final MRSA 02/08/17 12:00 Sputum, Induced/Suctioned - Final Laboratory Tests 02/11/17 03:45 Total Bilirubin 10.2 H AST 117 H Physical Exam - Physical Exam General Appearance: alert, no apparent distress EENT: normal ENT inspection, other (hoarse) Neck: normal inspection Respiratory: lungs clear, normal breath sounds Cardiac/Chest: regular rate, rhythm, edema Abdomen: normal bowel sounds, non-tender, soft Skin: normal color, warm/dry Extremities: normal inspection Neuro/Psych: alert, normal mood/affect, oriented x 3 ICD10 Worksheet Patient Problems: Problems Problem Status Onset Atrial fibrillation Acute Diverticulitis Acute MRSA (methicillin resistant Staphylococcus aureus) Acute ~02/11/17
[2017-02-11] MEDS: AMIODARONE HCL 200 MG TAB PO SCH (10:46)
--- NOTE | 2017-02-11 11:03 | SOAPPROG ---
SOAP Progress Note Assessment/Plan: Assessment: Slow improvement. Cont po/rehab Plan: 01/26/17 10:12 01/27/17 08:53 01/28/17 13:28 01/29/17 14:42 01/30/17 14:32 01/31/17 09:42 02/01/17 11:55 02/02/17 17:12 02/03/17 12:19 02/04/17 20:25 02/05/17 17:08 02/06/17 13:24 02/08/17 11:22 02/09/17 16:54 02/10/17 17:01 02/11/17 11:02 Subjective: Patient feels better, pain improved. Some N no V with dialysis. Objective: Vital Signs Temp Pulse Resp BP Pulse Ox 37.2 C 72 23 H 104/91 H 100 02/11/17 08:00 02/11/17 10:00 02/11/17 10:00 02/11/17 10:00 02/11/17 10:00 Microbiology 02/08/17 12:00 - Final Sputum, Induced/Suctioned Sputum Culture - Final MRSA Laboratory Results 02/11/17 03:45 02/11/17 03:45 02/10/17 02/11/17 02/12/17 05:59 05:59 05:59 Intake Total 60 294 Output Total 1550 2400 Balance -1490 -2106 PT 16.0 SEC (12.0-15.0) H 02/03/17 03:38 INR 1.28 (0.83-1.16) H 02/03/17 03:38 Alert, NAD Abd soft, NTTP [employer] without erythema, min granulation ostomy viable ICD10 Worksheet Patient Problems: Problems Problem Status Onset Atrial fibrillation Acute Diverticulitis Acute MRSA (methicillin resistant Staphylococcus aureus) Acute ~02/11/17 - ICD10 Problem Qualifiers (1) Diverticulitis Qualifiers: Diverticulitis site: D Diverticulitis bleeding: D Diverticulitis complication: D
[2017-02-11] MEDS: LANSOPRAZOLE SUSP 30MG/10ML UDSYR (Adult) TUBE SCH (11:22)
[2017-02-11] MEDS ORDERED: diphenhydrAMINE 25 MG CAP PO PRN (11:22)
[2017-02-11] MEDS: PANTOPRAZOLE SODIUM 40 MG TAB PO SCH (11:45)
[2017-02-11] MEDS: MIDODRINE HCL 5 MG TAB PO SCH ×2 (11:46→17:21)
[2017-02-11] MEDS: oxyCODONE IR 5 MG TAB PO PRN ×2 (17:21→18:08)
[2017-02-11] MEDS: MELATONIN 3 MG TAB PO SCH (21:29)
--- NOTE | 2017-02-11 22:11 | HOSPPROG ---
Hospitalist Progress Note Assessment/Plan: assessment: 70-year-old female presents with anastomotic leak and peritonitis complicated by retroperitoneal hematoma and subsequent PEA arrest and septic shock, c/b intermittent hypotension Plan: 1. Septic shock. Evidenced by aLact 11.7, tachypnea/leukocytosis (WBC 31,000)/ tachypnea/source of infxn (pneumonia/peritonitis), resulting in autonomic dysregulation in setting of infxn - off levophed - cont midodrine given liver impairment - s/p IVF/abx 2. Anastomotic leak. S/p sigmoid resection - s/p ileostomy - gen surgery remains primary service - goal is to start enteric nutrition, encourage PO 3. Peritonitis. Polymicrobial w/ bacteroides on cx - s/p 3 weeks IV Zosyn 4. Retroperitoneal bleed. Acute, s/p embolization x 2 - repeat CT a/p stable 5. Acute hypoxic respiratory failure. 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 ATN. 2/2 hypovolemia/hypoperfusion, resulting in ATN and requiring HD - initially ischemic due to cardiac arrest - volume removal w/ HD - tunnelled cath placement - began producing urine today, good prognostic indicator 7. PEA arrest. Likely 2/2 hypoxia, approx 7mins CPR w/ return of circulation 8. Morbid obesity. BMI 41, increases risk of morbidity/mortality 9. Hypotension. Occurs w/ volume removal 2/2 intravascular depletion and poor oncotic pressure - goal MAP > 60, use levophed if less 10. Paroxysmal Afib. Acute RVR intermittently, PACs ongoing - PO amio low dose and metop 11. Thrombocytopenia. Likely consumptive, cont monitoring 12. Hyponatremia. Acute, likely 2/2 hypovolemia, improved 13. Back pain. Lidoderm patch preferred by patient, attempting to avoid opiates - PRN oxy IR 14. Pleural effusion. Improving in R base on x-ray today (personally interpreted ), no indication for thora 15. MRSA colonization. D/w Dr. Smith, he reports bronch did not demonstrate particularly infected appearing lung, WBC currently stable, will hold on Abx Diet. 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 Full, family joint-MPOA PPx. High risk, SCDs given bleed Dispo. ADD uncertain remains high level of medical complexity, high risk morbidity/mortality 2/2 issues outlined above Subjective: patient reports she is trying to eat more, urinated Objective: Vital Signs Temp Pulse Resp BP Pulse Ox 38.1 C 85 21 H 110/75 98 02/11/17 16:00 02/11/17 21:29 02/11/17 18:00 02/11/17 21:29 02/11/17 18:00 Microbiology 02/08/17 12:00 - Final Sputum, Induced/Suctioned Sputum Culture - Final MRSA Laboratory Results 02/11/17 03:45 02/11/17 03:45 02/10/17 02/11/17 02/12/17 05:59 05:59 05:59 Intake Total 60 294 Output Total 1550 2400 300 Balance -1490 -2106 -300 PT 16.0 SEC (12.0-15.0) H 02/03/17 03:38 INR 1.28 (0.83-1.16) H 02/03/17 03:38 - Physical Exam Constitutional: no apparent distress, chronically ill appearing, obese, uncomfortable Cardiovascular: systolic murmur (1/6 at sternum), edema (2+ bialt LE), No irregularly irregular, No tachycardia Respiratory: reduced air movement (L base), inspiratory crackles (bilat bases), No expiratory wheeze, No bronchial breath sounds Gastrointestinal: normoactive bowel sounds, tenderness (mild around surg site), other (ostomy in place), No guarding Skin: other (no erythema around surg site) Neurologic: AAOx3, sensation intact bilaterally (parasthesias bilat feet), No facial droop Psychiatric: interacting appropriately, not anxious, not encephalopathic, thought process linear ICD10 Worksheet Patient Problems: Problems Problem Status Onset MRSA (methicillin resistant Staphylococcus aureus) Acute ~02/11/17 Atrial fibrillation Acute Diverticulitis Acute
[2017-02-12] MEDS: PATCH REMOVAL 1 EA PATCH TD SCH ×2 (01:15→06:23)
[2017-02-12] MEDS: DEXMEDETOMIDINE HCL 400 MCG in NS 100 ML IV PRN (02:58)
[2017-02-12 05:17] LABS: % IMMATURE GRANULYOCYTES 1.6 % (0.0-1.1); ABSOLUTE IMMATURE GRANULOCYTES 0.19 10^3/uL (0.00-0.10); ADD DIFF? NO; ADD MORPH? YES; ADD SCAN? NO; ATYPICAL LYMPHOCYTE FLAG 20 (0-99); FRAGMENT RBC FLAG 0 (0-99); HEMATOCRIT 27.3 % (38.0-47.0); HEMOGLOBIN 8.8 g/dL (12.6-16.3); LEFT SHIFT FLG 10 (0-99); LIPEMIA HEMOLYSIS FLAG 80 (0-99); MEAN CELL HEMOGLOBIN 30.7 pg (27.9-34.1); MEAN CELL HEMOGLOBIN CONCENTR. 32.2 g/dL (32.4-36.7); MEAN CELL VOLUME 95.1 fL (81.5-99.8); MEAN PLATELET VOLUME 10.4 fL (8.7-11.7); PLATELET CLUMPS FLAG 10 (0-99); PLATELET COUNT 229 10^3/uL (150-400); RED BLOOD CELL COUNT 2.87 10^6/uL (4.18-5.33)
[2017-02-12 05:22] LABS: RED CELL DISTRIBUTION WIDTH 21.6 % (11.5-15.2)
[2017-02-12 05:36] LABS: ALANINE AMINOTRANSFERASE 135 IU/L (9-52); ALBUMIN 3.3 g/dL (3.5-5.0); ALKALINE PHOSPHATASE 248 IU/L (38-126); ANION GAP 12 mEq/L (8-16); ASPARTATE AMINOTRANSFERASE 108 IU/L (14-46); BILIRUBIN,TOTAL 9.4 mg/dL (0.1-1.4); CALCIUM 9.2 mg/dL (8.5-10.4); CARBON DIOXIDE 25 mEq/l (22-31); CHLORIDE 101 mEq/L (97-110); CREATININE 2.3 mg/dL (0.6-1.0); GLOMERULAR FILTRATION RATE 21; GLUCOSE 96 mg/dL (70-100); MAGNESIUM 2.1 mg/dL (1.6-2.3); POTASSIUM 4.2 mEq/L (3.5-5.2); SODIUM 138 mEq/L (134-144); TOTAL PROTEIN 7.1 g/dL (6.3-8.2)
[2017-02-12 05:42] LABS: BILIRUBIN-CONJUGATED 8.2 mg/dL (0.0-0.5); BILIRUBIN-UNCONJUGATED 1.2 mg/dL (0.0-1.1)
[2017-02-12 06:23] LABS: HYPOCHROMIA 1+; MACROCYTES 1+; PLATELET ESTIMATE ADEQUATE (ADEQ)
[2017-02-12 06:24] LABS: POLYCHROMASIA 1+
[2017-02-12] MEDS: HEPARIN 5,000 UNIT/0.5 ML SYR SC SCH ×3 (06:45→20:46)
[2017-02-12] MEDS: METOPROLOL TARTRATE 25 MG TAB PO SCH ×2 (08:28→20:45)
[2017-02-12] MEDS: LIDOCAINE 5% 1 EA PATCH TD SCH (08:29)
[2017-02-12] MEDS: PANTOPRAZOLE SODIUM 40 MG TAB PO SCH (08:29)
[2017-02-12] MEDS: MIDODRINE HCL 5 MG TAB PO SCH ×3 (08:29→17:38)
[2017-02-12] MEDS: AMIODARONE HCL 200 MG TAB PO SCH (08:30)
--- NOTE | 2017-02-12 09:19 | SOAPPROG ---
SOAP Progress Note Assessment/Plan: Assessment: 1. NANCY. Ischemic due to cardiac arrest. Tunneled dialysis catheter placed. Avoid hypotension, nsaids, iv contrast. Volume status much improved, wt down 11kg from admission. High stool output with little intake. Hold HD today, next tomorrow with no UF. 2. Hypotension. Multifactorial. [id number] TID. May be able to wean soon. If BP drops bolus fluids. 3. Malnutrition. Na stable. Diet per ST. 4. Hepatitis. ALT/AST/TBili elevated but improving. Shock vs ?some obstruction from hematoma. Plan: 02/06/17 13:23 02/07/17 11:59 02/07/17 12:00 02/10/17 08:27 02/10/17 08:32 02/10/17 08:33 02/11/17 08:15 02/12/17 09:08 02/12/17 09:10 02/12/17 09:19 Subjective: Had a great night's sleep. Wants to liberalize diet. No pain. No problems reported with dialysis yesterday, 0.5 L removed. Objective: Vital Signs Temp Pulse Resp BP Pulse Ox 36.9 C 72 23 H 120/54 L 93 02/12/17 06:00 02/12/17 08:28 02/12/17 06:00 02/12/17 08:28 02/12/17 06:00 Microbiology 02/08/17 12:00 - Final Sputum, Induced/Suctioned Sputum Culture - Final MRSA Laboratory Results 02/12/17 04:45 02/12/17 04:45 02/11/17 02/12/17 02/13/17 05:59 05:59 05:59 Intake Total 294 638 Output Total 2400 650 50 Balance -2106 -12 -50 PT 16.0 SEC (12.0-15.0) H 02/03/17 03:38 INR 1.28 (0.83-1.16) H 02/03/17 03:38 Jaundiced, tired but smiling female in bed RRR, no m/g/r CTAB Abdom obese, RLQ ostomy, nontender Tr-1+ LE pitting edema ICD10 Worksheet Patient Problems: Problems Problem Status Onset MRSA (methicillin resistant Staphylococcus aureus) Acute ~02/11/17 Atrial fibrillation Acute Diverticulitis Acute
--- NOTE | 2017-02-12 11:25 | PDINTPN ---
Litigation Manager Progress Note Assessment/Plan: Assessment: 71 F with diverticulitis admitted 01/04 with abdominal pain and had robotic sigmoid hemicolectomy. There were no obvious complications and she was sent to the floor, but developed increasing pain and somnolence so was transferred to the ICU 01/[address] revealing an 11 cm pelvic hematoma and extraluminal air. She returned to the OR for evacuation of the hematoma and creation of an ileostomy. She was extubated the next morning, but developed atrial fibrillation , which she may have had twice in previous years (family was uncertain). She has remained hospitalized since with multiple complications and MOF. * Encephalopathy: Likely multifactorial, with multiorgan failure and sedation. Improved with extubation. * Respiratory failure with hypoxemia- initially related to anastamotic leak then pain control, ineffective respirations and possibly pulmonary edema 2/2 NANCY and afib. She later developed HAP with pseudomonas in her Bcx and was treated with Abx for several weeks. She was first re-intubated 01/09, followed by eventual extubation, but again re-intubated 01/25/17 with code blue. CXR with LLL pneumonia and right effusion. Now on o2@ 2 liters/minute. * Afib with RVR. She was initially treated with amiodarone, followed by a brief trial of esmolol (dropped BP). She got one dose of Digoxin on 01/08, but worsening renal function made that a less desirable choice. Diltiazem was added 01/09 with mild success- HR 140-160 and no drop in BP. Cards following and rate control with oral amiodarone and metoprolol prn. Brief run of SVT 02/06, possibly related to wean. Currently NSR. * Peritonitis following sigmoid resection complicated by anastamotic leak. Afebrile and decreased wbc without intervention. Continue observation and fu cultures. 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 She remains dialysis dependent, tolerating daily HD, but was previously off HD prior to her arrest. Renal said to expect return to non- dialysis dependance eventually. Made urine for the first time 02/11, still very small volume. * Transaminitis- she had a small increase in AST/ALT likely 2/2 decreased perfusion early in her course, but a substantial increase after her code. Trending down very slowly. * Retroperitoneal bleed 2/?- she has been embolized twice- 01/26 and 01/29 and transfused last on 01/29 with stable Hct. Hold anticoagulation and use SCDs for VTE prophylaxis. Abdo CT without change in retroperitoneal hemorrhage. Remains stable Hgb up a bit without transfusion. * Thrombocytopenia- Likely from consumptive coagulopathy related to retroperitoneal bleed. Stable >200 * Code blue 01/25/17 from PEA presumably related to hypovolemia and possibly hypoxia. CPR time not fully clear to me, but this effects prognosis obviously. Guarded neuro prognosis but she intermittently follows commands. * Nutrition- Starting PO, not yet taking full needs. * ICU prophylaxis- SCDs and pantoprazole * Anemia: Hgb hovering around 8 * Insomnia: Likely due to ICU stay, delerium. Improved with melatonin, Precedex last few nights. * Back Pain: History of spinal stenosis. Improved a bit with lidocaine patch, heat, and increased activity. * MRSA: In bronch wash. Likely colonizer. Plan: Continue HD, follow urine output. Continue melatonin for sleep, use Precedex PRN at night. PO narcotics PRN pain. Advance diet as tolerated, hold on feeding tube for now. ANDRÉS prior to discharge. Continue SQ heparin for DVT prophylaxis. Follow WBC, H/H, CXR. Transfer to SDU. D/W family. 02/12/17 11:34 Subjective: Slept well last night. Appetite still poor. Pain control OK. Objective: Vital Signs Temp Pulse Resp BP Pulse Ox 36.9 C 72 23 H 120/54 L 93 02/12/17 06:00 02/12/17 08:28 02/12/17 06:00 02/12/17 08:28 02/12/17 06:00 Microbiology 02/08/17 12:00 - Final Sputum, Induced/Suctioned Sputum Culture - Final MRSA Laboratory Results 02/12/17 04:45 02/12/17 04:45 02/11/17 02/12/17 02/13/17 05:59 05:59 05:59 Intake Total 294 638 Output Total 2400 650 50 Balance -210550 PT 16.0 SEC (12.0-15.0) H 02/03/17 03:38 INR 1.28 (0.83-1.16) H 02/03/17 03:38 Laboratory Tests 02/12/17 04:45 Total Bilirubin 9.4 H AST 108 H ALT 135 H Physical Exam - Physical Exam General Appearance: alert, no apparent distress EENT: normal ENT inspection Neck: normal inspection Respiratory: lungs clear, normal breath sounds, No respiratory distress Cardiac/Chest: regular rate, rhythm, edema (1+) Abdomen: normal bowel sounds, non-tender, soft Skin: normal color, warm/dry Extremities: normal inspection Neuro/Psych: alert, normal mood/affect, oriented x 3 ICD10 Worksheet Patient Problems: Problems Problem Status Onset Atrial fibrillation Acute Diverticulitis Acute MRSA (methicillin resistant Staphylococcus aureus) Acute ~02/11/17
--- NOTE | 2017-02-12 13:02 | SOAPPROG ---
SOAP Progress Note Assessment/Plan: Assessment: Slow improvement. Cont po/rehab Plan: 01/26/17 10:12 01/27/17 08:53 01/28/17 13:28 01/29/17 14:42 01/30/17 14:32 01/31/17 09:42 02/01/17 11:55 02/02/17 17:12 02/03/17 12:19 02/04/17 20:25 02/05/17 17:08 02/06/17 13:24 02/08/17 11:22 02/09/17 16:54 02/10/17 17:01 02/11/17 11:02 Subjective: Denies pain. Sat up 10 minutes today. +BM, no blood. Objective: Vital Signs Temp Pulse Resp BP Pulse Ox 36.8 C 92 19 134/72 H 91 L 02/12/17 12:00 02/12/17 12:00 02/12/17 12:00 02/12/17 12:00 02/12/17 12:00 Microbiology 02/08/17 12:00 - Final Sputum, Induced/Suctioned Sputum Culture - Final MRSA Laboratory Results 02/12/17 04:45 02/12/17 04:45 02/11/17 02/12/17 02/13/17 05:59 05:59 05:59 Intake Total 294 638 Output Total 2400 650 300 Balance -2106 -12 -300 PT 16.0 SEC (12.0-15.0) H 02/03/17 03:38 INR 1.28 (0.83-1.16) H 02/03/17 03:38 Alert, NAD Abd soft, [employer] without erythema Ostomy viable ICD10 Worksheet Patient Problems: Problems Problem Status Onset Atrial fibrillation Acute Diverticulitis Acute MRSA (methicillin resistant Staphylococcus aureus) Acute ~02/11/17 - ICD10 Problem Qualifiers (1) Diverticulitis Qualifiers: Diverticulitis site: D Diverticulitis bleeding: D Diverticulitis complication: D
[2017-02-12] MEDS: oxyCODONE IR 5 MG TAB PO PRN ×2 (13:07→19:29)
--- NOTE | 2017-02-12 16:36 | HOSPPROG ---
Hospitalist Progress Note Assessment/Plan: INTERVAL SUMMARY & DAILY PROGRESS NOTE DATE OF ADMISSION:01/04/2017 INTERVAL DIAGNOSES 1. acute anastomotic leak 2. Polymicrobial peritonitis 2. Septic shock 4. Acute retroperitoneal bleed 5. Acute hypoxic respiratory failure 6. pulseless electrical activity arrest 7. Acute tubular necrosis 8. Morbid obesity 9. Hypotension 10. persistent atrial fibrillation 11. acute hyponatremia 12. Pleural effusion 13. MRSA colonization 14. acute thrombocytopenia 15. acute lower back pain 16. Acute blood loss anemia 17. Suspected Hospital Associated Pneumonia CONSULTATIONS General surgery is primary, Dr. Portillo and Dr. Weeks PROCEDURES / IMAGING Robot asst hemicolectomy with ileostomy, abdominal washout SUBJECTIVE Patient has had increased level of interactive notice over the last 24 hours, she is sitting more upright and has a better appetite HOSPITAL COURSE BY PROBLEM The patient was originally admitted for hemicolectomy in the setting of diverticulitis. The surgery was complicated by an anastomotic leak and resultant peritonitis. She also experienced a retroperitoneal hemorrhage. In the setting of severe illness, she developed recurrence of her atrial fibrillation and situation was further complicated by acute respiratory failure and PEA arrest, resulting in code blue and re-intubation. Her tenuous respiratory status was further exacerbated by the development of acute tubular necrosis requiring hemodialysis for volume removal. Her volume removal was complicated by episodes of hypotension and required intermittent interruption as well as pressor support. During this interval, the patient has been clinically improving and she has been safely extubated. She is increasing her physical activity as well as her appetite and oral intake. Assessment: 72-year-old female presents with anastomotic leak and peritonitis after hemicolectomy for diverticulitis, complicated by retroperitoneal hematoma and subsequent PEA arrest and septic shock, resp failure Plan: 1. Septic shock. Source of infxn (pneumonia/peritonitis), resulting in autonomic dysregulation in setting of infxn, required levophed and midodrine 2. Anastomotic leak. S/p sigmoid resection, s/p ileostomy, gen surgery remains primary service - goal is to increase enteric nutrition, encourage PO 3. Peritonitis. Polymicrobial w/ bacteroides on cx - s/p 3 weeks IV Zosyn 4. Retroperitoneal bleed. Acute, s/p embolization x 2, repeat CT a/p stable 5. Acute hypoxic respiratory failure. 2/2 hospital assoc PNA and volume overload in setting of ATN, NOT a direct result of the original surgery - successfully extubated - cont 2L NC 6. ATN. 2/2 hypovolemia/hypoperfusion, resulting in ATN and requiring HD - UOP 30ml/hr o/n, good prognostic indicator - has tunneled cath for outpt HD if needed 7. PEA arrest. Likely 2/2 hypoxia, approx 7mins CPR w/ return of circulation 8. Morbid obesity. BMI 41, increases risk of morbidity/mortality 9. Hypotension. Occurs w/ volume removal (HD) 2/2 intravascular depletion and poor oncotic pressure 10. Persistent Afib. Acute RVR intermittently, PACs ongoing, requiring amio/ metoprolol to remain in NSR - holding on systemic anticoagulation given recent bleed 11. Thrombocytopenia. Likely consumptive, cont monitoring 12. Hyponatremia. Acute, likely 2/2 hypovolemia, improved 13. Back pain. Lidoderm patch preferred by patient, attempting to avoid opiates - PRN oxy IR 14. Pleural effusion. No indication for thora 15. MRSA colonization. D/w Dr. Smith, he reports bronch did not demonstrate particularly infected appearing lung, WBC currently stable, will hold on Abx 16. Acute blood loss anemia. 2/2 retroperitoneal hemorrhage, transfused 17. Suspected HCAP. Pulm infiltrates on CXR, treated w/ Zosyn, now off Abx Diet. 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 Full, family joint-MPOA PPx. High risk, SCDs given bleed Dispo. ADD uncertain Remains high level of medical complexity, high risk morbidity/mortality 2/2 issues outlined above Subjective: Patient reports that her appetite is improving, she has been working with physical therapy Objective: Vital Signs Temp Pulse Resp BP Pulse Ox 36.8 C 92 19 134/72 H 91 L 02/12/17 12:00 02/12/17 12:00 02/12/17 12:00 02/12/17 12:00 02/12/17 12:00 Laboratory Results 02/12/17 04:45 02/12/17 04:45 02/11/17 02/12/17 02/13/17 05:59 05:59 05:59 Intake Total 294 638 Output Total 2400 650 380 Balance -2105 - - PT 16.0 SEC (12.0-15.0) H 02/03/17 03:38 INR 1.28 (0.83-1.16) H 02/03/17 03:38 - Physical Exam Constitutional: no apparent distress, chronically ill appearing, obese, uncomfortable Eyes: icteric sclera Cardiovascular: edema ( 2+ bilateral lower extremity edema), other ( intermittent ectopic beat), No systolic murmur, No irregularly irregular, No tachycardia Respiratory: reduced air movement ( right base), inspiratory crackles ( left anterior segment), No expiratory wheeze, No bronchial breath sounds, No respiratory distress Gastrointestinal: normoactive bowel sounds, distension ( mildly), other ( ostomy bag in place), No tenderness, No guarding Neurologic: AAOx3, No sensation intact bilaterally ( subjective paresthesias bilateral lower extremities), No facial droop Psychiatric: interacting appropriately, not anxious, not encephalopathic, flat affect, No agitated ICD10 Worksheet Patient Problems: Problems Problem Status Onset Atrial fibrillation Acute Diverticulitis Acute MRSA (methicillin resistant Staphylococcus aureus) Acute ~02/11/17
[2017-02-12] MEDS: MELATONIN 3 MG TAB PO SCH (20:45)
[2017-02-13] MEDS: DEXMEDETOMIDINE HCL 400 MCG in NS 100 ML IV PRN (00:46)
[2017-02-13 04:00] LABS: % IMMATURE GRANULYOCYTES 1.6 % (0.0-1.1); ABSOLUTE IMMATURE GRANULOCYTES 0.18 10^3/uL (0.00-0.10); ADD DIFF? NO; ADD MORPH? YES; ADD SCAN? NO; ATYPICAL LYMPHOCYTE FLAG 10 (0-99); FRAGMENT RBC FLAG 10 (0-99); HEMATOCRIT 27.2 % (38.0-47.0); HEMOGLOBIN 8.8 g/dL (12.6-16.3); LEFT SHIFT FLG 0 (0-99); LIPEMIA HEMOLYSIS FLAG 80 (0-99); MEAN CELL HEMOGLOBIN CONCENTR. 32.4 g/dL (32.4-36.7); MEAN CELL VOLUME 95.8 fL (81.5-99.8); MEAN PLATELET VOLUME 10.1 fL (8.7-11.7); PLATELET CLUMPS FLAG 0 (0-99); PLATELET COUNT 260 10^3/uL (150-400); RED BLOOD CELL COUNT 2.84 10^6/uL (4.18-5.33)
[2017-02-13 04:02] LABS: RED CELL DISTRIBUTION WIDTH 22.2 % (11.5-15.2)
[2017-02-13 04:13] LABS: ALANINE AMINOTRANSFERASE 117 IU/L (9-52); ALBUMIN 3.3 g/dL (3.5-5.0); ALKALINE PHOSPHATASE 252 IU/L (38-126); ANION GAP 13 mEq/L (8-16); ASPARTATE AMINOTRANSFERASE 117 IU/L (14-46); BILIRUBIN,TOTAL 8.4 mg/dL (0.1-1.4); CARBON DIOXIDE 23 mEq/l (22-31); CHLORIDE 101 mEq/L (97-110); CREATININE 3.2 mg/dL (0.6-1.0); GLOMERULAR FILTRATION RATE 14; GLUCOSE 108 mg/dL (70-100); POTASSIUM 4.6 mEq/L (3.5-5.2); SODIUM 137 mEq/L (134-144); TOTAL PROTEIN 6.9 g/dL (6.3-8.2)
[2017-02-13 04:19] LABS: BILIRUBIN-CONJUGATED 7.5 mg/dL (0.0-0.5); BILIRUBIN-UNCONJUGATED 0.9 mg/dL (0.0-1.1)
[2017-02-13 04:21] LABS: MACROCYTES 1+; MICROCYTES 1+; PLATELET ESTIMATE ADEQUATE (ADEQ); POLYCHROMASIA 1+
[2017-02-13] MEDS: HEPARIN 5,000 UNIT/0.5 ML SYR SC SCH ×4 (06:08→22:18)
[2017-02-13] MEDS: LIDOCAINE 5% 1 EA PATCH TD SCH (09:31)
[2017-02-13] MEDS: MIDODRINE HCL 5 MG TAB PO SCH ×3 (09:31→17:09)
[2017-02-13] MEDS: AMIODARONE HCL 200 MG TAB PO SCH (09:31)
[2017-02-13] MEDS: METOPROLOL TARTRATE 25 MG TAB PO SCH ×2 (09:32→21:57)
[2017-02-13] MEDS: PANTOPRAZOLE SODIUM 40 MG TAB PO SCH (09:34)
--- NOTE | 2017-02-13 09:48 | PDINTPN ---
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 There were no obvious complications and she was sent to the floor, but developed increasing pain and somnolence so was transferred to the ICU 01/[address] revealing an 11 cm pelvic hematoma and extraluminal air. She returned to the OR for evacuation of the hematoma and creation of an ileostomy. She was extubated the next morning, but developed atrial fibrillation , which she may have had twice in previous years (family was uncertain). She has remained hospitalized since with multiple complications and MOF. * Encephalopathy: Likely multifactorial, with multiorgan failure and sedation. Improved with extubation. * Respiratory failure with hypoxemia- initially related to anastamotic leak then pain control, ineffective respirations and possibly pulmonary edema 2/2 NANCY and afib. She later developed HAP with pseudomonas in her Bcx and was treated with Abx for several weeks. She was first re-intubated 01/09, followed by eventual extubation, but again re-intubated 01/25/17 with code blue. CXR with improving LLL pneumonia and persistent large right effusion. Now on RA or O2@ 2 liters/minute. * Afib with RVR. She was initially treated with amiodarone, followed by a brief trial of esmolol (dropped BP). She got one dose of Digoxin on 01/08, but worsening renal function made that a less desirable choice. Diltiazem was added 01/09 with mild success- HR 140-160 and no drop in BP. Cards following and rate control with oral amiodarone and metoprolol prn. Brief run of SVT 02/06, possibly related to wean. Currently NSR. * Peritonitis following sigmoid resection complicated by anastamotic leak. Afebrile and decreased wbc without intervention. Continue observation and fu cultures. 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 She remains dialysis dependent, tolerating daily HD, but was previously off HD prior to her arrest. Renal said to expect return to non- dialysis dependance eventually. Made urine for the first time 02/11, still very small volume. * Transaminitis- she had a small increase in AST/ALT likely 2/2 decreased perfusion early in her course, but a substantial increase after her code. Transaminases remain mildly elevated. Bili steadily decreasing. * Retroperitoneal bleed 2/2?- she has been embolized twice- 01/26 and 01/29 and transfused last on 01/29 with stable Hct. Hold anticoagulation and use SCDs for VTE prophylaxis. Abdo CT without change in retroperitoneal hemorrhage. Remains stable Hgb up a bit without transfusion. * Thrombocytopenia- Stable >200 * Code blue 01/25/17 from PEA presumably related to hypovolemia and possibly hypoxia. CPR time not fully clear to me, but this effects prognosis obviously. Guarded neuro prognosis but she intermittently follows commands. * Nutrition- Starting PO, not yet taking full needs. * ICU prophylaxis- SCDs and pantoprazole * Anemia: Hgb hovering around 8 * Insomnia: Likely due to ICU stay, delerium. Improved with melatonin, Precedex last few nights has worked well. * Back Pain: History of spinal stenosis. Improved a bit with lidocaine patch, heat, and increased activity. * MRSA: In bronch wash. Likely colonizer. Plan: Continue HD, follow urine output. Continue melatonin for sleep, use Precedex PRN at night. PO narcotics PRN pain. Advance diet as tolerated, hold on feeding tube for now. ANDRÉS prior to discharge. Continue SQ heparin for DVT prophylaxis. Follow WBC, H/H, CXR. May be able to transfer to [facility] soon. ? LTAC eval/ placement vs rehab. D/W family. 02/13/17 09:49 Subjective: Slept well last night. Still has poor appetite/PO intake. Back feels uncomfortable. Objective: Vital Signs Temp Pulse Resp BP Pulse Ox 37.0 C 73 16 103/62 93 02/13/17 08:00 02/13/17 08:00 02/13/17 08:00 02/13/17 08:00 02/13/17 08:00 Laboratory Results 02/13/17 03:45 02/13/17 03:45 02/12/17 02/13/17 02/14/17 05:59 05:59 05:59 Intake Total 638 88.6 Output Total 650 980 Balance -12 -891.4 PT 16.0 SEC (12.0-15.0) H 02/03/17 03:38 INR 1.28 (0.83-1.16) H 02/03/17 03:38 CXR: Large right free effusion. Improved left base consolidation. Images reviewed. Laboratory Tests 02/13/17 03:45 Total Bilirubin 8.4 H AST 117 H ALT 117 H Physical Exam - Physical Exam General Appearance: alert, no apparent distress EENT: normal ENT inspection Neck: normal inspection Respiratory: lungs clear, No normal breath sounds Cardiac/Chest: regular rate, rhythm, edema (1+) Abdomen: normal bowel sounds, non-tender, soft Skin: normal color, warm/dry Extremities: normal inspection Neuro/Psych: alert, normal mood/affect, oriented x 3 ICD10 Worksheet Patient Problems: Problems Problem Status Onset Atrial fibrillation Acute Diverticulitis Acute MRSA (methicillin resistant Staphylococcus aureus) Acute ~02/11/17
--- NOTE | 2017-02-13 10:18 | SOAPPROG ---
SOAP Progress Note Assessment/Plan: Assessment/Plan: NANCY: Pt likely has developed ATN in setting of large retroperitoneal bleed with significant drop in Hgb as well as cardiac arrest, remains anuric. She also has R atrophic kidney at baseline but Cr prior to arrest 1.1. - HD today with no fluid removal. - Will hold off on HD tomorrow, likely next on Wednesday or Wednesday. - Will continue to monitor for renal recovery. Hypotension: controlled on midodrine 10mg TID, will hopefully be able to wean down soon. Anemia: Hgb stable at 8.8, will continue to monitor. Subjective: No acute events overnight. Pt having no pain, breathing comfortably, feeling thirsty. Objective: Vital Signs Temp Pulse Resp BP Pulse Ox 37.0 C 73 16 103/62 93 02/13/17 08:00 02/13/17 08:00 02/13/17 08:00 02/13/17 08:00 02/13/17 08:00 Laboratory Results 02/13/17 03:45 02/13/17 03:45 02/12/17 02/13/17 02/14/17 05:59 05:59 05:59 Intake Total 638 88.6 Output Total 650 980 Balance -12 -891.4 PT 16.0 SEC (12.0-15.0) H 02/03/17 03:38 INR 1.28 (0.83-1.16) H 02/03/17 03:38 General: alert and oriented, no acute distress Eyes; EOMI, PERRL OP: clear CV: RRR Resp: nonlabored respirations on RA Abd; Soft, NT Ext: +2 edema BLE Neuro: CN II-XII grossly intact Psych: cooperative, appropriate mood and affect Access: R IJ tunneled catheter ICD10 Worksheet Patient Problems: Problems Problem Status Onset Atrial fibrillation Acute Diverticulitis Acute MRSA (methicillin resistant Staphylococcus aureus) Acute ~02/11/17
--- NOTE | 2017-02-13 11:31 | SOAPPROG ---
SOAP Progress Note Assessment/Plan: Assessment: slowly improving clinically with resolving ileus Plan:continue supportive care/transfer to med-surg increase oral intake Flakita Weeks MD, FACS 01/26/17 06:51 01/26/17 06:54 02/13/17 11:28 Subjective: appears weak, but resting comfortably eating small amounts Objective: Vital Signs Temp Pulse Resp BP Pulse Ox 37.0 C 73 16 103/62 93 02/13/17 08:00 02/13/17 08:00 02/13/17 08:00 02/13/17 08:00 02/13/17 08:00 Laboratory Results 02/13/17 03:45 02/13/17 03:45 02/12/17 02/13/17 02/14/17 05:59 05:59 05:59 Intake Total 638 88.6 Output Total 650 980 Balance -12 -891.4 PT 16.0 SEC (12.0-15.0) H 02/03/17 03:38 INR 1.28 (0.83-1.16) H 02/03/17 03:38 Physical Exam - Physical Exam General Appearance: alert, no apparent distress Cardiac/Chest: regular rate, rhythm Abdomen: normal bowel sounds, non-tender, soft, other (RLQ ileostomy) Neuro/Psych: normal mood/affect ICD10 Worksheet Patient Problems: Problems Problem Status Onset Atrial fibrillation Acute Diverticulitis Acute MRSA (methicillin resistant Staphylococcus aureus) Acute ~02/11/17
--- NOTE | 2017-02-13 15:56 | HOSPPROG ---
Hospitalist Progress Note Assessment/Plan: * status post sigmoid resection with anastomotic leak, status post ileostomy * per surgery * peritonitis * status post antibiotics * retroperitoneal bleed * status post embolization * acute hypoxic respiratory failure * resolved * hospital acquired pneumonia * resolved * acute renal failure/ATN * getting dialysis * atrial fibrillation * amiodarone and metoprolol * back pain * will try small dose of muscle relaxer * MRSA colonization * thrombocytopenia * septic shock * resolved Subjective: complaining of back pain Objective: Vital Signs Temp Pulse Resp BP Pulse Ox 38.4 C H 83 16 109/54 L 100 02/13/17 12:00 02/13/17 12:00 02/13/17 12:00 02/13/17 12:00 02/13/17 12:00 Laboratory Results 02/13/17 03:45 02/13/17 03:45 02/12/17 02/13/17 02/14/17 05:59 05:59 05:59 Intake Total 638 88.6 Output Total 650 980 Balance -12 -891.4 PT 16.0 SEC (12.0-15.0) H 02/03/17 03:38 INR 1.28 (0.83-1.16) H 02/03/17 03:38 - Physical Exam Constitutional: no apparent distress, appears nourished, not in pain Eyes: anicteric sclera, EOMI Ears, Nose, Mouth, Throat: moist mucous membranes, hearing normal, ears appear normal Cardiovascular: regular rate and rhythym, no murmur, rub, or gallop, edema ( 2+) Respiratory: no respiratory distress, no rales or rhonchi, clear to auscultation Gastrointestinal: normoactive bowel sounds, other ( ileostomy), No tenderness Skin: warm Neurologic: AAOx3 Psychiatric: interacting appropriately, not anxious, not encephalopathic, thought process linear ICD10 Worksheet Patient Problems: Problems Problem Status Onset Atrial fibrillation Acute Diverticulitis Acute MRSA (methicillin resistant Staphylococcus aureus) Acute ~02/11/17
[2017-02-13] MEDS: oxyCODONE IR 5 MG TAB PO PRN (16:09)
[2017-02-13] MEDS: CYCLOBENZAPRINE 10 MG TAB PO PRN (16:09)
[2017-02-13] MEDS: traMADol 50 MG TAB PO PRN (18:57)
[2017-02-13] MEDS: MELATONIN 3 MG TAB PO SCH (21:57)
[2017-02-13] MEDS: PATCH REMOVAL 1 EA PATCH TD SCH (22:16)
[2017-02-13] MEDS ORDERED: ONDANSETRON 4 MG/2 ML VIAL IVP PRN (22:44)
[2017-02-14] MEDS: oxyCODONE IR 5 MG TAB PO PRN ×3 (02:44→18:45)
[2017-02-14] MEDS: HEPARIN 5,000 UNIT/0.5 ML SYR SC SCH ×3 (05:41→20:39)
[2017-02-14 06:11] LABS: % IMMATURE GRANULYOCYTES 0.9 % (0.0-1.1); ABSOLUTE IMMATURE GRANULOCYTES 0.11 10^3/uL (0.00-0.10); ADD DIFF? NO; ADD MORPH? YES; ADD SCAN? NO; ATYPICAL LYMPHOCYTE FLAG 20 (0-99); FRAGMENT RBC FLAG 0 (0-99); HEMATOCRIT 27.8 % (38.0-47.0); HEMOGLOBIN 8.9 g/dL (12.6-16.3); LEFT SHIFT FLG 10 (0-99); LIPEMIA HEMOLYSIS FLAG 80 (0-99); MEAN CELL HEMOGLOBIN 30.5 pg (27.9-34.1); MEAN CELL VOLUME 95.2 fL (81.5-99.8); PLATELET CLUMPS FLAG 0 (0-99); PLATELET COUNT 267 10^3/uL (150-400); RED BLOOD CELL COUNT 2.92 10^6/uL (4.18-5.33)
[2017-02-14 06:15] LABS: RED CELL DISTRIBUTION WIDTH 22.2 % (11.5-15.2)
[2017-02-14 06:35] LABS: ALANINE AMINOTRANSFERASE 130 IU/L (9-52); ALBUMIN 3.2 g/dL (3.5-5.0); ALKALINE PHOSPHATASE 233 IU/L (38-126); ANION GAP 13 mEq/L (8-16); ASPARTATE AMINOTRANSFERASE 140 IU/L (14-46); BILIRUBIN,TOTAL 8.6 mg/dL (0.1-1.4); CARBON DIOXIDE 25 mEq/l (22-31); CHLORIDE 99 mEq/L (97-110); CREATININE 2.5 mg/dL (0.6-1.0); GLOMERULAR FILTRATION RATE 19; GLUCOSE 84 mg/dL (70-100); POTASSIUM 4.4 mEq/L (3.5-5.2); SODIUM 137 mEq/L (134-144); TOTAL PROTEIN 7.2 g/dL (6.3-8.2)
[2017-02-14 06:43] LABS: BILIRUBIN-CONJUGATED 7.4 mg/dL (0.0-0.5); BILIRUBIN-UNCONJUGATED 1.2 mg/dL (0.0-1.1)
[2017-02-14 06:45] LABS: HYPOCHROMIA 1+; MACROCYTES 1+; PLATELET ESTIMATE ADEQUATE (ADEQ); POLYCHROMASIA 1+
[2017-02-14] MEDS: METOPROLOL TARTRATE 25 MG TAB PO SCH ×2 (08:53→20:39)
[2017-02-14] MEDS: AMIODARONE HCL 200 MG TAB PO SCH (08:53)
[2017-02-14] MEDS: LIDOCAINE 5% 1 EA PATCH TD SCH (08:54)
[2017-02-14] MEDS: PANTOPRAZOLE SODIUM 40 MG TAB PO SCH (08:54)
[2017-02-14] MEDS: MIDODRINE HCL 5 MG TAB PO SCH ×3 (09:51→16:49)
--- NOTE | 2017-02-14 09:57 | SOAPPROG ---
SOAP Progress Note Assessment/Plan: Assessment: slowly improving clinically with resolving ileus/dysphagia ? candidal esophagitis Plan:continue supportive care + wound care empiric trial of Diflucan increase oral intake/dietary consult may need supplemental enteral feeding if unable to take in sufficient calories orally ongoing PT isolation for MRSA colonization dialysis per renal S MD Desi, FACS 01/26/17 06:51 01/26/17 06:54 02/13/17 11:28 02/14/17 09:59 Subjective: resting comfortably/complains of pain with swallowing Objective: Vital Signs Temp Pulse Resp BP Pulse Ox 36.8 C 100 16 135/70 H 90 L 02/14/17 08:00 02/14/17 08:00 02/14/17 08:00 02/14/17 08:00 02/14/17 08:00 Laboratory Results 02/14/17 05:55 02/14/17 05:55 02/13/17 02/14/17 02/15/17 05:59 05:59 05:59 Intake Total 88.6 100 Output Total 980 Balance -891.4 100 PT 16.0 SEC (12.0-15.0) H 02/03/17 03:38 INR 1.28 (0.83-1.16) H 02/03/17 03:38 Physical Exam - Physical Exam General Appearance: mild distress EENT: other (oral thrush) Respiratory: decreased breath sounds Cardiac/Chest: regular rate, rhythm Abdomen: normal bowel sounds, non-tender, soft, other (lower midline incision with 3 open areas. Upper 2 are small and granulating nicely/the distal incision is deeper and had necrotic tissue at the base that was debrided at the bedside and redressed with Normal Saline/Cotton gauze. The ileostomy bridge was remove) ICD10 Worksheet Patient Problems: Problems Problem Status Onset Atrial fibrillation Acute Diverticulitis Acute MRSA (methicillin resistant Staphylococcus aureus) Acute ~02/11/17
--- NOTE | 2017-02-14 10:50 | SOAPPROG ---
SOAP Progress Note Assessment/Plan: Assessment/Plan: NANCY: Pt likely has developed ATN in setting of large retroperitoneal bleed with significant drop in Hgb as well as cardiac arrest, remains anuric. She also has R atrophic kidney at baseline but Cr prior to arrest 1.1. - HD done yesterday. - Will hold off on HD for now and monitor for recovery. Next HD likely Wednesday if needed. Hypotension: controlled on midodrine 10mg TID, will hopefully be able to wean down soon. Anemia: Hgb stable at 8.9, will continue to monitor. Subjective: No acute events overnight. No UOP recorded but pt reports having some UOP last night. Objective: Vital Signs Temp Pulse Resp BP Pulse Ox 36.8 C 100 16 135/70 H 90 L 02/14/17 08:00 02/14/17 08:00 02/14/17 08:00 02/14/17 08:00 02/14/17 08:00 Laboratory Results 02/14/17 05:55 02/14/17 05:55 02/13/17 02/14/17 02/15/17 05:59 05:59 05:59 Intake Total 88.6 100 Output Total 980 Balance -891.4 100 PT 16.0 SEC (12.0-15.0) H 02/03/17 03:38 INR 1.28 (0.83-1.16) H 02/03/17 03:38 General: alert and oriented, no acute distress Eyes; EOMI, PERRL OP: Clear CV: RRR Resp: nonlabored respirations on NC Abd; SOft, ND Ext: +trace edema BLE Neuro: CN II-XII grossly intact, no asterixis Psych: cooperative, appropriate mood and affect ICD10 Worksheet Patient Problems: Problems Problem Status Onset Atrial fibrillation Acute Diverticulitis Acute MRSA (methicillin resistant Staphylococcus aureus) Acute ~02/11/17
--- NOTE | 2017-02-14 11:13 | HOSPPROG ---
Hospitalist Progress Note Assessment/Plan: * status post sigmoid resection with anastomotic leak, status post ileostomy * per surgery * trying to encourage increased p.o. intake * started on Diflucan empirically for possible candidiasis * peritonitis * status post antibiotics * elevated liver function tests * had been going up slowly early in hospitalization and peaked several days ago and seems to be coming down * probably element of cholestasis * will get abdominal ultrasound * retroperitoneal bleed * status post embolization * acute hypoxic respiratory failure * resolved * hospital acquired pneumonia * resolved * acute renal failure/ATN * getting dialysis * atrial fibrillation * amiodarone and metoprolol * back pain * will try small dose of muscle relaxer * MRSA colonization * thrombocytopenia * septic shock * resolved Subjective: back pain and little better. Not eating still Objective: Vital Signs Temp Pulse Resp BP Pulse Ox 36.8 C 100 16 135/70 H 90 L 02/14/17 08:00 02/14/17 08:00 02/14/17 08:00 02/14/17 08:00 02/14/17 08:00 Laboratory Results 02/14/17 05:55 02/14/17 05:55 02/13/17 02/14/17 02/15/17 05:59 05:59 05:59 Intake Total 88.6 100 Output Total 980 Balance -891.4 100 PT 16.0 SEC (12.0-15.0) H 02/03/17 03:38 INR 1.28 (0.83-1.16) H 02/03/17 03:38 discussed with surgery - Physical Exam Constitutional: no apparent distress, appears nourished, not in pain Eyes: anicteric sclera, EOMI Ears, Nose, Mouth, Throat: moist mucous membranes, hearing normal, ears appear normal Cardiovascular: regular rate and rhythym Respiratory: no respiratory distress, no rales or rhonchi, clear to auscultation Gastrointestinal: normoactive bowel sounds, other ( ileostomy, soft nontender) Skin: warm Neurologic: AAOx3 Psychiatric: interacting appropriately, not anxious, not encephalopathic, thought process linear, flat affect ICD10 Worksheet Patient Problems: Problems Problem Status Onset Atrial fibrillation Acute Diverticulitis Acute MRSA (methicillin resistant Staphylococcus aureus) Acute ~02/11/17
[2017-02-14] MEDS: FLUCONAZOLE 100 MG TAB PO SCH (12:24)
[2017-02-14] MEDS: FAMOTIDINE 20 MG TAB PO SCH (20:40)
[2017-02-14] MEDS: MELATONIN 3 MG TAB PO SCH (20:40)
[2017-02-15] MEDS: PATCH REMOVAL 1 EA PATCH TD SCH ×2 (01:21→22:32)
[2017-02-15] MEDS: HEPARIN 5,000 UNIT/0.5 ML SYR SC SCH ×3 (05:23→22:31)
[2017-02-15] MEDS: METOPROLOL TARTRATE 25 MG TAB PO SCH ×2 (07:54→20:48)
[2017-02-15] MEDS: AMIODARONE HCL 200 MG TAB PO SCH (07:55)
[2017-02-15] MEDS: FLUCONAZOLE 100 MG TAB PO SCH (07:55)
[2017-02-15] MEDS: FAMOTIDINE 20 MG TAB PO SCH ×2 (07:56→20:48)
[2017-02-15] MEDS: MIDODRINE HCL 5 MG TAB PO SCH ×3 (07:56→16:31)
[2017-02-15] MEDS: oxyCODONE IR 5 MG TAB PO PRN ×2 (10:10→22:31)
[2017-02-15 10:17] LABS: % IMMATURE GRANULYOCYTES 1.1 % (0.0-1.1); ABSOLUTE IMMATURE GRANULOCYTES 0.14 10^3/uL (0.00-0.10); ADD DIFF? NO; ADD MORPH? YES; ADD SCAN? NO; ATYPICAL LYMPHOCYTE FLAG 30 (0-99); FRAGMENT RBC FLAG 10 (0-99); HEMATOCRIT 30.7 % (38.0-47.0); HEMOGLOBIN 9.7 g/dL (12.6-16.3); LEFT SHIFT FLG 10 (0-99); LIPEMIA HEMOLYSIS FLAG 80 (0-99); MEAN CELL HEMOGLOBIN 30.6 pg (27.9-34.1); MEAN CELL HEMOGLOBIN CONCENTR. 31.6 g/dL (32.4-36.7); MEAN CELL VOLUME 96.8 fL (81.5-99.8); PLATELET CLUMPS FLAG 10 (0-99); PLATELET COUNT 287 10^3/uL (150-400); RED BLOOD CELL COUNT 3.17 10^6/uL (4.18-5.33)
[2017-02-15 10:20] LABS: RED CELL DISTRIBUTION WIDTH 21.9 % (11.5-15.2)
[2017-02-15 10:34] LABS: ALANINE AMINOTRANSFERASE 116 IU/L (9-52); ALBUMIN 3.4 g/dL (3.5-5.0); ALKALINE PHOSPHATASE 244 IU/L (38-126); ANION GAP 14 mEq/L (8-16); ASPARTATE AMINOTRANSFERASE 132 IU/L (14-46); BILIRUBIN,TOTAL 7.8 mg/dL (0.1-1.4); CALCIUM 9.3 mg/dL (8.5-10.4); CARBON DIOXIDE 24 mEq/l (22-31); CHLORIDE 98 mEq/L (97-110); CREATININE 3.5 mg/dL (0.6-1.0); GLOMERULAR FILTRATION RATE 13; GLUCOSE 94 mg/dL (70-100); POTASSIUM 5.1 mEq/L (3.5-5.2); SODIUM 136 mEq/L (134-144); TOTAL PROTEIN 7.7 g/dL (6.3-8.2)
[2017-02-15 10:48] LABS: BILIRUBIN-UNCONJUGATED 0.8 mg/dL (0.0-1.1)
[2017-02-15 11:30] LABS: MACROCYTES 1+; MICROCYTES 1+; PLATELET ESTIMATE ADEQUATE (ADEQ)
--- NOTE | 2017-02-15 11:35 | HOSPPROG ---
Hospitalist Progress Note Assessment/Plan: * status post sigmoid resection with anastomotic leak, status post ileostomy * per surgery * trying to encourage increased p.o. intake * started on Diflucan empirically for possible candidiasis * peritonitis * status post antibiotics * elevated liver function tests * had been going up slowly early in hospitalization and peaked several days ago and seems to be coming down * probably element of cholestasis * A abdominal ultrasound shows fatty liver * retroperitoneal bleed * status post embolization * acute hypoxic respiratory failure * resolved * hospital acquired pneumonia * resolved * acute renal failure/ATN * getting dialysis * atrial fibrillation * amiodarone and metoprolol * back pain * will try small dose of muscle relaxer * MRSA colonization * thrombocytopenia * septic shock * resolved * disposition - possible LTAC in the next 1-2 days Subjective: Complaining of back pain. Ate little bit more yesterday Objective: Vital Signs Temp Pulse Resp BP Pulse Ox 36.9 C 84 18 154/70 H 92 02/15/17 08:00 02/15/17 08:00 02/15/17 08:00 02/15/17 08:00 02/15/17 08:00 Laboratory Results 02/15/17 03:07 02/15/17 03:07 02/14/17 02/15/17 02/16/17 05:59 05:59 05:59 Intake Total 100 250 Balance 100 250 PT 16.0 SEC (12.0-15.0) H 02/03/17 03:38 INR 1.28 (0.83-1.16) H 02/03/17 03:38 - Physical Exam Constitutional: no apparent distress, appears nourished, not in pain Eyes: anicteric sclera, EOMI Ears, Nose, Mouth, Throat: moist mucous membranes, hearing normal Cardiovascular: regular rate and rhythym, no murmur, rub, or gallop Respiratory: no respiratory distress, no rales or rhonchi, clear to auscultation Gastrointestinal: normoactive bowel sounds, soft, non-tender abdomen, distension Skin: warm Neurologic: AAOx3 Psychiatric: interacting appropriately, not anxious, not encephalopathic, thought process linear ICD10 Worksheet Patient Problems: Problems Problem Status Onset Atrial fibrillation Acute Diverticulitis Acute MRSA (methicillin resistant Staphylococcus aureus) Acute ~02/11/17
[2017-02-15] MEDS: traMADol 50 MG TAB PO PRN (11:49)
[2017-02-15] MEDS: LIDOCAINE 5% 1 EA PATCH TD SCH (11:58)
--- NOTE | 2017-02-15 17:49 | SOAPPROG ---
SOAP Progress Note Assessment/Plan: Assessment/Plan: NANCY: Pt likely has developed ATN in setting of large retroperitoneal bleed with significant drop in Hgb as well as cardiac arrest, remains anuric. She also has R atrophic kidney at baseline but Cr prior to arrest 1.1. - HD done on Wednesday. - Will do HD again tomorrow. Hypotension: much improved, now BP running high. - Will cut down midodrine dosage. - Will attempt fluid removal on HD tomorrow. Anemia: Hgb improved to 9.7, will continue to monitor. Subjective: No acute events overnight. Pt notes she had more abdominal pain in the morning but now better. She does not have much appetite. She also notes having some generalized itching. Objective: Vital Signs Temp Pulse Resp BP Pulse Ox 36.8 C 77 18 148/72 H 93 02/15/17 16:00 02/15/17 16:00 02/15/17 16:00 02/15/17 16:00 02/15/17 16:00 Laboratory Results 02/15/17 03:07 02/15/17 03:07 02/14/17 02/15/17 02/16/17 05:59 05:59 05:59 Intake Total 100 250 Balance 100 250 PT 16.0 SEC (12.0-15.0) H 02/03/17 03:38 INR 1.28 (0.83-1.16) H 02/03/17 03:38 General: awake, alert, no acute distress Eyes; EOMI, PERRL OP: Clear CV: RRR Resp: nonlabored respirations on NC, CTAB Abd: Soft, slightly distended Ext: +2 edema BLE Neuro: CN II-XII Grossly intact, no asterixis Psych: cooperative, appropriate mood and affect ICD10 Worksheet Patient Problems: Problems Problem Status Onset Atrial fibrillation Acute Diverticulitis Acute MRSA (methicillin resistant Staphylococcus aureus) Acute ~02/11/17
[2017-02-15] MEDS: MELATONIN 3 MG TAB PO SCH (20:48)
[2017-02-16] MEDS: traMADol 50 MG TAB PO PRN (03:47)
[2017-02-16] MEDS: HEPARIN 5,000 UNIT/0.5 ML SYR SC SCH ×3 (05:22→22:04)
[2017-02-16] MEDS: oxyCODONE IR 5 MG TAB PO PRN ×4 (05:22→22:04)
[2017-02-16 05:54] LABS: ALANINE AMINOTRANSFERASE 111 IU/L (9-52); ALBUMIN 3.5 g/dL (3.5-5.0); ALKALINE PHOSPHATASE 224 IU/L (38-126); ANION GAP 13 mEq/L (8-16); ASPARTATE AMINOTRANSFERASE 126 IU/L (14-46); BILIRUBIN,TOTAL 7.2 mg/dL (0.1-1.4); CALCIUM 9.2 mg/dL (8.5-10.4); CARBON DIOXIDE 23 mEq/l (22-31); CHLORIDE 99 mEq/L (97-110); CREATININE 4.1 mg/dL (0.6-1.0); GLOMERULAR FILTRATION RATE 11; GLUCOSE 91 mg/dL (70-100); SODIUM 135 mEq/L (134-144); TOTAL PROTEIN 7.6 g/dL (6.3-8.2)
[2017-02-16 06:00] LABS: BILIRUBIN-CONJUGATED 6.5 mg/dL (0.0-0.5); BILIRUBIN-UNCONJUGATED 0.7 mg/dL (0.0-1.1)
--- NOTE | 2017-02-16 07:30 | SOAPPROG ---
SOAP Progress Note Assessment/Plan: Assessment: RUQ abdominal tenderness/normal GB ultrasound 02/14 Plan: CT abd to assess for delay complications of retroperitoneal hematoma continue supportive care + wound care empiric trial of Diflucan increase oral intake/dietary consult may need supplemental enteral feeding if unable to take in sufficient calories orally ongoing PT isolation for MRSA colonization dialysis per renal S MD Desi, FACS 01/26/17 06:51 01/26/17 06:54 02/13/17 11:28 02/14/17 09:59 02/16/17 07:27 Subjective: c/o increased abdominal pain/swallowing less painful Objective: Vital Signs Temp Pulse Resp BP Pulse Ox 36.5 C 74 16 132/76 H 96 02/16/17 03:25 02/16/17 03:25 02/16/17 03:25 02/16/17 03:25 02/16/17 03:25 Microbiology 02/10/17 09:55 Blood Culture - Final Blood Laboratory Results 02/15/17 03:07 02/16/17 05:05 02/15/17 02/16/17 02/17/17 05:59 05:59 05:59 Intake Total 250 350 Output Total 700 Balance 250 -350 PT 16.0 SEC (12.0-15.0) H 02/03/17 03:38 INR 1.28 (0.83-1.16) H 02/03/17 03:38 Physical Exam - Physical Exam General Appearance: mild distress Respiratory: decreased breath sounds Cardiac/Chest: regular rate, rhythm Abdomen: soft, other (tender RUQ/epigastium/right flank-no guarding) Skin: warm/dry Neuro/Psych: depressed affect ICD10 Worksheet Patient Problems: Problems Problem Status Onset Atrial fibrillation Acute Diverticulitis Acute MRSA (methicillin resistant Staphylococcus aureus) Acute ~02/11/17
[2017-02-16] MEDS: MIDODRINE HCL 5 MG TAB PO SCH ×3 (08:32→15:44)
[2017-02-16] MEDS: FLUCONAZOLE 100 MG TAB PO SCH (11:35)
[2017-02-16] MEDS: AMIODARONE HCL 200 MG TAB PO SCH (11:35)
[2017-02-16] MEDS: FAMOTIDINE 20 MG TAB PO SCH (11:35)
[2017-02-16] MEDS: METOPROLOL TARTRATE 25 MG TAB PO SCH ×2 (11:35→22:04)
[2017-02-16] MEDS: LIDOCAINE 5% 1 EA PATCH TD SCH (11:36)
--- NOTE | 2017-02-16 11:56 | SOAPPROG ---
SOAP Progress Note Assessment/Plan: Assessment: 1. Oliguric NANCY Stable HD earlier today. Tunneled catheter in place. Next HD Wed. 2. Hemodynamic Improved 3. Anemia Stable 4. LFTS slowly improving Subjective: Doing better Objective: Vital Signs Temp Pulse Resp BP Pulse Ox 36.5 C 74 16 132/76 H 96 02/16/17 03:25 02/16/17 03:25 02/16/17 03:25 02/16/17 03:25 02/16/17 03:25 Microbiology 02/10/17 09:55 Blood Culture - Final Blood Laboratory Results 02/15/17 03:07 02/16/17 05:05 02/15/17 02/16/17 02/17/17 05:59 05:59 05:59 Intake Total 250 350 Output Total 2700 Balance 250 -2350 PT 16.0 SEC (12.0-15.0) H 02/03/17 03:38 INR 1.28 (0.83-1.16) H 02/03/17 03:38 Physical Exam - Physical Exam General Appearance: mild distress Neck: other (tunneled cath site ok) Respiratory: decreased breath sounds Cardiac/Chest: regular rate, rhythm Abdomen: other (Wounds, ostomy noted) Extremities: pedal edema (trace) Neuro/Psych: alert ICD10 Worksheet Patient Problems: Problems Problem Status Onset Atrial fibrillation Acute Diverticulitis Acute MRSA (methicillin resistant Staphylococcus aureus) Acute ~02/11/17
--- NOTE | 2017-02-16 14:30 | HOSPPROG ---
Hospitalist Progress Note Assessment/Plan: * status post sigmoid resection with anastomotic leak, status post ileostomy * per surgery * trying to encourage increased p.o. intake * started on Diflucan empirically for possible candidiasis * May need Dobhoff * peritonitis * status post antibiotics * elevated liver function tests * had been going up slowly early in hospitalization and peaked several days ago and seems to be coming down * probably element of cholestasis * abdominal ultrasound shows fatty liver * retroperitoneal bleed * status post embolization * acute hypoxic respiratory failure * resolved * hospital acquired pneumonia * resolved * acute renal failure/ATN * getting dialysis * atrial fibrillation * amiodarone and metoprolol * Recheck EKG * back pain * will try small dose of muscle relaxer * MRSA colonization * thrombocytopenia * septic shock * resolved * disposition - would prefer that p.o. intake is better prior to discharge to LTAC Subjective: Still not eating very much. Seems that pain with swallowing is somewhat improved Objective: Vital Signs Temp Pulse Resp BP Pulse Ox 36.7 C 84 18 123/77 H 94 02/16/17 12:00 02/16/17 12:00 02/16/17 12:00 02/16/17 12:00 02/16/17 12:00 Microbiology 02/10/17 09:55 Blood Culture - Final Blood Laboratory Results 02/15/17 03:07 02/16/17 05:05 02/15/17 02/16/17 02/17/17 05:59 05:59 05:59 Intake Total 250 350 Output Total 2700 Balance 250 -2350 PT 16.0 SEC (12.0-15.0) H 02/03/17 03:38 INR 1.28 (0.83-1.16) H 02/03/17 03:38 - Physical Exam Constitutional: no apparent distress, appears nourished, not in pain Eyes: anicteric sclera, EOMI Cardiovascular: regular rate and rhythym Respiratory: no respiratory distress, no rales or rhonchi, clear to auscultation Gastrointestinal: normoactive bowel sounds, soft, non-tender abdomen, no palpable masses Skin: warm Neurologic: AAOx3 Psychiatric: interacting appropriately, not anxious, not encephalopathic, thought process linear ICD10 Worksheet Patient Problems: Problems Problem Status Onset Atrial fibrillation Acute Diverticulitis Acute MRSA (methicillin resistant Staphylococcus aureus) Acute ~02/11/17
--- NOTE | 2017-02-16 16:10 | WOCRNPDOC ---
KETURAH Advanced Assessment Note - Skin Integrity Problem, Advanced Assess Generalized Abdomen Surgical Wound/Incision Dressing Type: Gauze Dressing Description: Clean/Dry, Intact Right Distal Abdomen Blister Dressing Type: Open to Air Exudate Characteristic(s): None Wound Bed Constitution: Scab Medial Distal Abdomen Blister Dressing Type: Hydrocolloid Dressing Description: Clean/Dry, Intact (dated 02/10) Exudate Amount: None Integumentary Issue Intervention: Dressing Removed Wound Bed Constitution: Healed Skin Integrity Problem Comment: Healed site in skin fold, which was moist and intact. Cleaned pannus fold with bath wipe and placed Interdry sheet. EH Ortiz assisting. Medial Proximal Abdomen Surgical Wound/Incision Dressing Type: Gauze Dressing Description: Clean/Dry, Intact Bilateral Buttock Dressing Type: Allevyn Life Dressing Description: Not Intact (rolled) Exudate Amount: None Integumentary Issue Intervention: Dressing Changed (Cavilon and Allevyn sacrum) , Dressing Initialed & Dated Charity Wound Tissue: Blanching, Erythema Marked by Wound pediatric licensed practical nurse Bed Constitution: Healed Skin Integrity Problem Comment: Dry peeling epidermis at margin of old dressing ; pink, blanching intact skin underneath dressing. Cleansed and applied Cavilon and Allevyn sacrum dressing for portection. P500 bed on order. EH Ortiz assisting. Coccyx Pressure Injury Dressing Type: Allevyn Life Dressing Description: Not Intact Exudate Amount: None Integumentary Issue Intervention: Dressing Changed (Cavilon and Allevyn sacrum) , Dressing Initialed & Dated Charity Wound Tissue: Blanching Charity Wound Swelling: None Wound Bed Constitution: Healed Skin Integrity Problem Comment: Dry peeling epidermis at margin of old dressing ; pink, blanching intact skin underneath dressing. Cleansed and applied Cavilon and Allevyn sacrum dressing for portection. P500 bed on order. EH Ortiz assisting. Right Lateral Thigh Dressing Type: Open to Air Exudate Amount: None Integumentary Issue Intervention: Dressing Applied (Allevyn, for protection), Dressing Initialed & Dated Charity Wound Tissue: Intact Charity Wound Swelling: None Wound Bed Color: Purple Wound Bed Constitution: Smooth Tissue Site Measurement - Head-to-Toe Length X Width X Depth (cm): 3.5 x 0.2 x 0 Skin Integrity Problem Comment: Thin, purple linear bruise along soft tissue of R thigh. Resembles, but technically not a DTI because of location (not over a bony prominence). Smoothed bed linens and dressed protectively; EH Ortiz assisting. Patient to be placed on a P500 bed surface today. - Ileostomy Assessment, Advanced Right Upper Abdomen Ileostomy Ileostomy Appliance Intact: Yes Ileostomy Appliance Currently in Use: Two Piece Flat, 2 3/4 (placed yesterday () by EH Ortiz)
--- NOTE | 2017-02-16 16:38 | CPEKG ---
Heart Rate: 92 RR Interval: 652 P-R Interval: 152 QRSD Interval: 96 QT Interval: 380 QTC Interval: 471 P [place]: 6 QRS [place]: 25 T Wave [place]: 8 EKG Severity - NORMAL ECG - EKG Impression: SINUS RHYTHM Electronically Signed By: Angel Villalba 18-Feb-2017 12:14:16
[2017-02-16] MEDS ORDERED: HEPARIN 50,000 UNIT/10 ML VIAL ONE (17:15)
[2017-02-16] MEDS: MELATONIN 3 MG TAB PO SCH (22:04)
[2017-02-16] MEDS: PATCH REMOVAL 1 EA PATCH TD SCH (23:12)
[2017-02-17] MEDS: oxyCODONE IR 5 MG TAB PO PRN (05:00)
[2017-02-17] MEDS: HEPARIN 5,000 UNIT/0.5 ML SYR SC SCH ×2 (05:00→21:24)
[2017-02-17 05:39] LABS: % IMMATURE GRANULYOCYTES 1.3 % (0.0-1.1); ABSOLUTE IMMATURE GRANULOCYTES 0.17 10^3/uL (0.00-0.10); ADD DIFF? NO; ADD MORPH? YES; ADD SCAN? YES; ATYPICAL LYMPHOCYTE FLAG 20 (0-99); FRAGMENT RBC FLAG 10 (0-99); HEMATOCRIT 29.8 % (38.0-47.0); HEMOGLOBIN 9.5 g/dL (12.6-16.3); LEFT SHIFT FLG 20 (0-99); LIPEMIA HEMOLYSIS FLAG 80 (0-99); MEAN CELL HEMOGLOBIN 31.6 pg (27.9-34.1); MEAN CELL HEMOGLOBIN CONCENTR. 31.9 g/dL (32.4-36.7); PLATELET CLUMPS FLAG 0 (0-99); PLATELET COUNT 204 10^3/uL (150-400); RED BLOOD CELL COUNT 3.01 10^6/uL (4.18-5.33)
[2017-02-17 05:48] LABS: RED CELL DISTRIBUTION WIDTH 21.3 % (11.5-15.2)
[2017-02-17 06:16] LABS: SCAN NEGATIVE
[2017-02-17 06:18] LABS: HYPOCHROMIA 1+; MACROCYTES 1+; MICROCYTES 1+; PLATELET ESTIMATE ADEQUATE (ADEQ); POLYCHROMASIA 1+
[2017-02-17 06:25] LABS: ALANINE AMINOTRANSFERASE 105 IU/L (9-52); ALBUMIN 3.6 g/dL (3.5-5.0); ALKALINE PHOSPHATASE 211 IU/L (38-126); ANION GAP 15 mEq/L (8-16); ASPARTATE AMINOTRANSFERASE 120 IU/L (14-46); BILIRUBIN,TOTAL 7.1 mg/dL (0.1-1.4); CARBON DIOXIDE 24 mEq/l (22-31); CHLORIDE 96 mEq/L (97-110); CREATININE 2.8 mg/dL (0.6-1.0); GLOMERULAR FILTRATION RATE 17; GLUCOSE 89 mg/dL (70-100); SODIUM 135 mEq/L (134-144); TOTAL PROTEIN 7.3 g/dL (6.3-8.2)
[2017-02-17 06:48] LABS: BILIRUBIN-CONJUGATED 6.3 mg/dL (0.0-0.5); BILIRUBIN-UNCONJUGATED 0.8 mg/dL (0.0-1.1)
[2017-02-17] MEDS: METOPROLOL TARTRATE 25 MG TAB PO SCH ×2 (08:42→21:23)
[2017-02-17] MEDS: FAMOTIDINE 20 MG TAB PO SCH (08:42)
[2017-02-17] MEDS: FLUCONAZOLE 100 MG TAB PO SCH (08:43)
[2017-02-17] MEDS: LIDOCAINE 5% 1 EA PATCH TD SCH (08:43)
[2017-02-17] MEDS: MIDODRINE HCL 5 MG TAB PO SCH ×3 (08:43→15:55)
[2017-02-17] MEDS: AMIODARONE HCL 200 MG TAB PO SCH (08:43)
--- NOTE | 2017-02-17 09:57 | SOAPPROG ---
SOAP Progress Note Assessment/Plan: Assessment: RUQ abdominal tenderness/normal GB ultrasound 02/14 Plan: CT abd reviewed with Dr. Ferreira/retroperitoneal hematoma slightly larger but without air bubbles/no signs of infection. oral contrast into colon distal to loop ileostomy. Right pleural effusion larger ultrasound guided thoracentesis right chest continue supportive care + wound care empiric trial of Diflucan increase oral intake/dietary consult may need supplemental enteral feeding if unable to take in sufficient calories orally ongoing PT isolation for MRSA colonization dialysis per renal S MD Desi, FACS 01/26/17 06:51 01/26/17 06:54 02/13/17 11:28 02/14/17 09:59 02/16/17 07:27 02/17/17 09:43 Subjective: awake/slightly improved appetite Objective: Vital Signs Temp Pulse Resp BP Pulse Ox 36.4 C 83 20 131/72 H 100 02/17/17 08:00 02/17/17 08:00 02/17/17 08:00 02/17/17 08:00 02/17/17 08:00 Microbiology 02/10/17 09:55 Blood Culture - Final Blood Laboratory Results 02/17/17 05:20 02/17/17 05:20 02/16/17 02/17/17 02/18/17 05:59 05:59 05:59 Intake Total 350 Output Total 2700 200 Balance -2350 -200 PT 16.0 SEC (12.0-15.0) H 02/03/17 03:38 INR 1.28 (0.83-1.16) H 02/03/17 03:38 - Time Spent With Patient Time Spent With Patient: 20 minutes Physical Exam - Physical Exam General Appearance: alert, mild distress Neck: other (right IJ/tunneled cath) Respiratory: decreased breath sounds, other (poor inspiratory effort) Cardiac/Chest: regular rate, rhythm Abdomen: non-tender, soft, distended, other (dressings dry/intact, stoma functional and appliance sealed) Neuro/Psych: motor weakness, other (has not been out of bed for weeks) ICD10 Worksheet Patient Problems: Problems Problem Status Onset Atrial fibrillation Acute Diverticulitis Acute MRSA (methicillin resistant Staphylococcus aureus) Acute ~02/11/17
--- NOTE | 2017-02-17 10:00 | TRAUMAPN ---
Assessment/Plan: Assessment: RUQ abdominal tenderness/normal GB ultrasound 02/14 Plan: CT abd reviewed with Dr. Ferreira/retroperitoneal hematoma slightly larger but without air bubbles/no signs of infection. oral contrast into colon distal to loop ileostomy. Right pleural effusion larger ultrasound guided thoracentesis right chest continue supportive care + wound care empiric trial of Diflucan increase oral intake/dietary consult may need supplemental enteral feeding if unable to take in sufficient calories orally ongoing PT isolation for MRSA colonization dialysis per renal S MD Desi, FACS 01/26/17 06:51 01/26/17 06:54 02/13/17 11:28 02/14/17 09:59 02/16/17 07:27 02/17/17 09:43 Objective: Vital Signs Temp Pulse Resp BP Pulse Ox 36.4 C 83 20 131/72 H 100 02/17/17 08:00 02/17/17 08:00 02/17/17 08:00 02/17/17 08:00 02/17/17 08:00 Microbiology 02/10/17 09:55 Blood Culture - Final Blood Laboratory Results 02/17/17 05:20 02/17/17 05:20 02/16/17 02/17/17 02/18/17 05:59 05:59 05:59 Intake Total 350 Output Total 2700 200 Balance -2350 -200 PT 16.0 SEC (12.0-15.0) H 02/03/17 03:38 INR 1.28 (0.83-1.16) H 02/03/17 03:38
--- NOTE | 2017-02-17 12:29 | SOAPPROG ---
SOAP Progress Note Assessment/Plan: Assessment: 1. NANCY. Ischemic due to cardiac arrest. Tunneled dialysis catheter placed. Avoid hypotension, nsaids, iv contrast. Volume status much improved, wt down 15 from peak. High stool output with little intake. Holding HD today, next tomorrow. Has been anuric. Check bladder scan today. Anticipate eventual recovery. 2. Hypotension. Multifactorial. Improving. Midodrine reduced to 5mg TID. May be able to wean soon. 3. Hepatitis. ALT/AST/TBili elevated but improving albeit slowly. 4. Dispo. Will need LTAC, possibly [facility]? Plan: 02/06/17 13:23 02/07/17 11:59 02/07/17 12:00 02/10/17 08:27 02/10/17 08:32 02/10/17 08:33 02/11/17 08:15 02/12/17 09:08 02/12/17 09:10 02/12/17 09:19 02/17/17 12:27 Subjective: Eating but very little. No specific complaints today but requests HD later in day tomorrow to facilitate PT. Objective: Vital Signs Temp Pulse Resp BP Pulse Ox 36.4 C 83 20 131/72 H 100 02/17/17 08:00 02/17/17 08:00 02/17/17 08:00 02/17/17 08:00 02/17/17 08:00 Microbiology 02/10/17 09:55 Blood Culture - Final Blood Laboratory Results 02/17/17 05:20 02/17/17 05:20 02/16/17 02/17/17 02/18/17 05:59 05:59 05:59 Intake Total 350 Output Total 2700 200 Balance -2350 -200 PT 16.0 SEC (12.0-15.0) H 02/03/17 03:38 INR 1.28 (0.83-1.16) H 02/03/17 03:38 RRR, no m/g/r CTAB Abdom soft, nontender. RLQ ostomy pink No sacral edema ICD10 Worksheet Patient Problems: Problems Problem Status Onset MRSA (methicillin resistant Staphylococcus aureus) Acute ~02/11/17 Atrial fibrillation Acute Diverticulitis Acute
[2017-02-17 12:48] LABS: INR 1.33 (0.83-1.16); PROTIME(PATIENT) 16.5 SEC (12.0-15.0)
[2017-02-17 12:49] LABS: APTT 32.7 SEC (23.0-38.0)
[2017-02-17] MEDS ORDERED: HYDROmorphONE/DILAUDID 1 MG/ML SYR IVP PRN (15:13)
[2017-02-17] MEDS ORDERED: HYDROmorphONE/DILAUDID 2 MG/ML INJ ONE (15:18)
[2017-02-17 15:29] LABS: LACTATE DEHYDROGENASE 2227 IU/L (313-618)
--- NOTE | 2017-02-17 16:07 | HOSPPROG ---
Hospitalist Progress Note Assessment/Plan: * status post sigmoid resection with anastomotic leak, status post ileostomy * per surgery * trying to encourage increased p.o. intake * started on Diflucan empirically for possible candidiasis * peritonitis * status post antibiotics * elevated liver function tests * had been going up slowly early in hospitalization and peaked several days ago and seems to be coming down * probably element of cholestasis * abdominal ultrasound shows fatty liver * wonder if there may be hemolysis going on since LDH today is high * will check reticulocyte count although this will be difficult to interpret in the setting of acute renal failure, also check haptoglobin * I suppose that her elevated bilirubin and LDH could be from re-absorption of large hematoma * retroperitoneal bleed * status post embolization * acute hypoxic respiratory failure * resolved * hospital acquired pneumonia * resolved * acute renal failure/ATN * getting dialysis * atrial fibrillation * in sinus now * would probably continue amiodarone and metoprolol for now and for several weeks while at LTAC but would not keep on long-term * back pain * will try small dose of muscle relaxer * MRSA colonization * thrombocytopenia * septic shock * resolved * disposition - possible LTAC in the next 1-2 days Subjective: eating a little bit more. Having some pain post thoracentesis Objective: Vital Signs Temp Pulse Resp BP Pulse Ox 36.3 C 81 16 123/60 H 98 02/17/17 15:56 02/17/17 15:56 02/17/17 15:56 02/17/17 15:56 02/17/17 15:56 Laboratory Results 02/17/17 05:20 02/17/17 05:20 02/16/17 02/17/17 02/18/17 05:59 05:59 05:59 Intake Total 350 Output Total 2700 200 Balance -2350 -200 PT 16.5 SEC (12.0-15.0) H 02/17/17 12:25 INR 1.33 (0.83-1.16) H 02/17/17 12:[address] scan of the abdomen personally viewed interpreted - slightly larger retroperitoneal hematoma moderate right pleural effusion - Physical Exam Constitutional: no apparent distress, appears nourished, not in pain Eyes: icteric sclera Ears, Nose, Mouth, Throat: moist mucous membranes, hearing normal Cardiovascular: regular rate and rhythym, no murmur, rub, or gallop Respiratory: no respiratory distress, reduced air movement Gastrointestinal: normoactive bowel sounds, soft, non-tender abdomen, no palpable masses Skin: warm Neurologic: AAOx3 Psychiatric: interacting appropriately, not anxious, not encephalopathic, thought process linear ICD10 Worksheet Patient Problems: Problems Problem Status Onset Atrial fibrillation Acute Diverticulitis Acute MRSA (methicillin resistant Staphylococcus aureus) Acute ~02/11/17
[2017-02-17] MEDS: ALTEPLASE 2 MG VIAL IVP PRN ×2 (17:39→17:41)
[2017-02-17 19:00] LABS: HEMATOCRIT 29.9 % (38.0-47.0)
[2017-02-17] MEDS: MELATONIN 3 MG TAB PO SCH (21:23)
[2017-02-17] MEDS: PATCH REMOVAL 1 EA PATCH TD SCH (21:30)
--- NOTE | 2017-02-17 23:19 | SOAPPROG ---
Downtime Inpatient MD Late Entry SOAP Note: post thoracentesis CXR reviewed/no pneumo-improved RLL aeration prelim results only available for LDH which was >2200 culture, pH, protein were ordered but remain pending. High LDH is worrisome for an exudative effusion. Flakita Weeks MD, FACS
[2017-02-18] MEDS: oxyCODONE IR 5 MG TAB PO PRN ×3 (03:06→15:13)
[2017-02-18] MEDS: HEPARIN 5,000 UNIT/0.5 ML SYR SC SCH ×3 (05:18→22:01)
[2017-02-18 05:36] LABS: % IMMATURE GRANULYOCYTES 1.7 % (0.0-1.1); ABSOLUTE IMMATURE GRANULOCYTES 0.23 10^3/uL (0.00-0.10); ADD DIFF? NO; ADD MORPH? YES; ADD SCAN? NO; ATYPICAL LYMPHOCYTE FLAG 10 (0-99); FRAGMENT RBC FLAG 0 (0-99); HEMATOCRIT 29.1 % (38.0-47.0); HEMOGLOBIN 9.2 g/dL (12.6-16.3); LEFT SHIFT FLG 10 (0-99); LIPEMIA HEMOLYSIS FLAG 80 (0-99); MEAN CELL HEMOGLOBIN 30.8 pg (27.9-34.1); MEAN CELL HEMOGLOBIN CONCENTR. 31.6 g/dL (32.4-36.7); MEAN CELL VOLUME 97.3 fL (81.5-99.8); MEAN PLATELET VOLUME 10.2 fL (8.7-11.7); PLATELET CLUMPS FLAG 30 (0-99); PLATELET COUNT 235 10^3/uL (150-400); RED BLOOD CELL COUNT 2.99 10^6/uL (4.18-5.33)
[2017-02-18 05:51] LABS: RED CELL DISTRIBUTION WIDTH 20.9 % (11.5-15.2)
[2017-02-18 06:24] LABS: PLATELET ESTIMATE ADEQUATE (ADEQ)
[2017-02-18 06:26] LABS: ALANINE AMINOTRANSFERASE 80 IU/L (9-52); ALBUMIN 2.3 g/dL (3.5-5.0); ALKALINE PHOSPHATASE 159 IU/L (38-126); ANION GAP 14 mEq/L (8-16); ASPARTATE AMINOTRANSFERASE 88 IU/L (14-46); BILIRUBIN,TOTAL 5.2 mg/dL (0.1-1.4); CALCIUM 7.2 mg/dL (8.5-10.4); CARBON DIOXIDE 19 mEq/l (22-31); CHLORIDE 104 mEq/L (97-110); CREATININE 2.8 mg/dL (0.6-1.0); GLOMERULAR FILTRATION RATE 17; GLUCOSE 73 mg/dL (70-100); POTASSIUM 3.4 mEq/L (3.5-5.2); SODIUM 137 mEq/L (134-144); TOTAL PROTEIN 5.6 g/dL (6.3-8.2)
[2017-02-18 06:34] LABS: BILIRUBIN-CONJUGATED 4.6 mg/dL (0.0-0.5); BILIRUBIN-UNCONJUGATED 0.6 mg/dL (0.0-1.1)
--- NOTE | 2017-02-18 08:15 | SOAPPROG ---
SOAP Progress Note Assessment/Plan: Assessment: right pleural effusion with elevated LDH/suspicious for exudate- cannot exclude infected parapneumonic effusion that could require surgical drainage/VATS, patients wbc remains elevated without fever pH, glucose, protein, cell count and culture pending and thus far not logged in by the lab Overall stable with persistant pain, weakness but with increasing oral intake NANCY on dialysis Plan: review results of thoracentesis fluid when available/may require a repeat thoracentesis if the specimen has been discarded or lost. A culture on a specimen that has sat overnight may not be valid. Continue dialysis, wound care, PT/OT anticipate LTAC in near future, but I would not send her until we have ruled out infected pleural effusion. Flakita Weeks MD, FACS 02/18/17 08:09 Subjective: tolerated a cheeseburger/ongoing pain in back Objective: right thoracentesis fluid submitted for pH, glucose, protein, cell count, culture and LDH I cannot see that any of these tests were actually run or are pending other than the LDH which was markedly elevated Vital Signs Temp Pulse Resp BP Pulse Ox 36.4 C 83 24 H 149/79 H 90 L 02/18/17 04:00 02/18/17 04:00 02/18/17 04:00 02/18/17 04:00 02/18/17 04:00 Laboratory Results 02/18/17 04:45 02/18/17 04:45 02/17/17 02/18/17 02/19/17 05:59 05:59 05:59 Intake Total 60 Output Total 200 0 Balance -200 60 PT 16.5 SEC (12.0-15.0) H 02/17/17 12:25 INR 1.33 (0.83-1.16) H 02/17/17 12:25 Physical Exam - Physical Exam General Appearance: no apparent distress Respiratory: decreased breath sounds Abdomen: normal bowel sounds, soft, other (abdominal wound dehisence site redressed/granulating) ICD10 Worksheet Patient Problems: Problems Problem Status Onset Atrial fibrillation Acute Diverticulitis Acute MRSA (methicillin resistant Staphylococcus aureus) Acute ~02/11/17
[2017-02-18 09:06] LABS: LD, PLEURAL FLUID 3811 IU/L
[2017-02-18] MEDS: AMIODARONE HCL 200 MG TAB PO SCH (09:21)
[2017-02-18] MEDS: MIDODRINE HCL 5 MG TAB PO SCH ×3 (09:21→17:38)
[2017-02-18] MEDS: FLUCONAZOLE 100 MG TAB PO SCH (09:22)
[2017-02-18] MEDS: METOPROLOL TARTRATE 25 MG TAB PO SCH ×2 (09:22→22:00)
[2017-02-18] MEDS: LIDOCAINE 5% 1 EA PATCH TD SCH (09:22)
[2017-02-18] MEDS: FAMOTIDINE 20 MG TAB PO SCH (09:22)
--- NOTE | 2017-02-18 12:31 | SOAPPROG ---
SOAP Progress Note Assessment/Plan: Assessment/Plan: NANCY: Pt likely has developed ATN in setting of large retroperitoneal bleed with significant drop in Hgb as well as cardiac arrest. She also has R atrophic kidney at baseline but Cr prior to arrest 1.1. Her Cr has not changed between yesterday and today, which would suggest some renal recovery, but at the same time, she has not had any UOP. - Will do HD today. - Next HD planned for Wednesday. - Will continue to monitor for renal recovery. Hypotension: much improved. midodrine down to 5mg TID, will continue to wean down as tolerated. Anemia: Hgb stable at 9.2, will continue to monitor. Subjective: Pt had thoracentesis done yesterday with 950ml removed, studies pending on it. Pt worked hard with PT this am and now is tired. She still does not have much UOP. Objective: Vital Signs Temp Pulse Resp BP Pulse Ox 36.7 C 95 12 121/64 H 94 02/18/17 09:37 02/18/17 09:37 02/18/17 09:37 02/18/17 09:37 02/18/17 09:37 Microbiology 02/17/17 11:00 Gram Stain - Final Thoracic Fluid - Aspirate Laboratory Results 02/18/17 04:45 02/18/17 04:45 02/17/17 02/18/17 02/19/17 05:59 05:59 05:59 Intake Total 60 Output Total 200 0 Balance -200 60 PT 16.5 SEC (12.0-15.0) H 02/17/17 12:25 INR 1.33 (0.83-1.16) H 02/17/17 12:25 General: alert and oriented, no acute distress, looks tired Eyes; EOMI, PERRL OP: Clear CV: RRR Resp: nonlabored respirations on NC Abd; SOft, nondistended Ext: trace edema BLE Neuro: CN II-XII Grossly intact, no asterixis Psych: cooperative, blunted affect Access: R IJ tunneled catheter ICD10 Worksheet Patient Problems: Problems Problem Status Onset Atrial fibrillation Acute Diverticulitis Acute MRSA (methicillin resistant Staphylococcus aureus) Acute ~02/11/17
--- NOTE | 2017-02-18 18:01 | HOSPPROG ---
Hospitalist Progress Note Assessment/Plan: Assessment: 72-year-old female presents with anastomotic leak and peritonitis after hemicolectomy for diverticulitis, complicated by retroperitoneal hematoma and subsequent PEA arrest and septic shock, resp failure Plan: 1. Septic shock. Source of infxn (pneumonia/peritonitis), resulting in autonomic dysregulation in setting of infxn, required levophed and midodrine 2. Anastomotic leak. S/p sigmoid resection, s/p ileostomy, gen surgery remains primary service - goal is to increase enteric nutrition, encourage PO 3. Peritonitis. Polymicrobial w/ bacteroides on cx - s/p 3 weeks IV Zosyn 4. Retroperitoneal bleed. Acute, s/p embolization x 2, repeat CT a/p stable 5. Acute hypoxic respiratory failure. 2/2 hospital assoc PNA and volume overload in setting of ATN, NOT a direct result of the original surgery - successfully extubated - cont 2L NC 6. ATN. 2/2 hypovolemia/hypoperfusion, resulting in ATN and requiring HD - UOP declined this week, has ongoing need for HD - has tunneled cath for outpt HD - LTAC provider would like to discuss with our area director 7. PEA arrest. Likely 2/2 hypoxia, approx 7mins CPR w/ return of circulation 8. Morbid obesity. BMI 41, increases risk of morbidity/mortality 9. Hypotension. Occurs w/ volume removal (HD) 2/2 intravascular depletion and poor oncotic pressure 10. Persistent Afib. Acute RVR intermittently, PACs ongoing, requiring amio/ metoprolol to remain in NSR - holding on systemic anticoagulation given recent bleed 11. Thrombocytopenia. Likely consumptive 12. Hyponatremia. Acute, likely 2/2 hypovolemia, improved 13. Back pain. Lidoderm patch preferred by patient, attempting to avoid opiates - PRN oxy IR 14. Pleural effusion. Exudative on thora, CXR w/ improvement (personally interpreted) - will d/w Dr. Weeks whether decortication indicated for potentially loculated source of infxn, parapneumonic effusion - counseled and LTAC that we are awaiting final decision on whether to pursue surgical intervention prior to discharge 15. MRSA colonization 16. Acute blood loss anemia. 2/2 retroperitoneal hemorrhage, transfused 17. Suspected HCAP. Pulm infiltrates on CXR, treated w/ Zosyn, now off Abx Diet. PO intake Code. Full, family joint-MPOA PPx. High risk, SCDs given bleed Dispo. ADD 02/19 Subjective: patient engaged heavily w/ PT today, now fatigued Objective: Vital Signs Temp Pulse Resp BP Pulse Ox 37.1 C 90 14 106/64 98 02/18/17 16:00 02/18/17 16:00 02/18/17 16:00 02/18/17 16:00 02/18/17 16:00 Microbiology 02/17/17 11:00 Gram Stain - Final Thoracic Fluid - Aspirate Laboratory Results 02/18/17 04:45 02/18/17 04:45 02/17/17 02/18/17 02/19/17 05:59 05:59 05:59 Intake Total 60 550 Output Total 200 0 Balance -200 60 550 PT 16.5 SEC (12.0-15.0) H 02/17/17 12:25 INR 1.33 (0.83-1.16) H 02/17/17 12:25 - Time Spent With Patient Time Spent with Patient: greater than 35 minutes Time Spent with Patient: Greater than 35 minutes spent on this patients care, greater than 50% of time spent counseling, educating, and coordinating care regarding the above mentioned plan. - Pending Discharge Pending Discharge Within 24 Hours: Yes Pending Discharge Date: 02/19/17 Pending Discharge Time: 11:00 - Physical Exam Constitutional: not in pain, chronically ill appearing, No uncomfortable Eyes: icteric sclera Cardiovascular: systolic murmur (I/ at LSB), edema (trace bilat LE edema), No irregularly irregular, No tachycardia Respiratory: rhonchi (R base) Gastrointestinal: normoactive bowel sounds, No tenderness Psychiatric: other (lethargic but arousable) ICD10 Worksheet Patient Problems: Problems Problem Status Onset MRSA (methicillin resistant Staphylococcus aureus) Acute ~02/11/17 Atrial fibrillation Acute Diverticulitis Acute
[2017-02-18] MEDS ORDERED: HEPARIN 50,000 UNIT/10 ML VIAL ONE (19:44)
[2017-02-18] MEDS: traMADol 50 MG TAB PO PRN (21:59)
[2017-02-18] MEDS: MELATONIN 3 MG TAB PO SCH (22:00)
[2017-02-18] MEDS: PATCH REMOVAL 1 EA PATCH TD SCH (22:40)
[2017-02-19] MEDS: oxyCODONE IR 5 MG TAB PO PRN ×3 (00:07→16:24)
[2017-02-19 04:55] LABS: % IMMATURE GRANULYOCYTES 1.9 % (0.0-1.1); ABSOLUTE IMMATURE GRANULOCYTES 0.24 10^3/uL (0.00-0.10); ADD DIFF? NO; ADD MORPH? YES; ADD SCAN? NO; ATYPICAL LYMPHOCYTE FLAG 20 (0-99); FRAGMENT RBC FLAG 0 (0-99); HEMOGLOBIN 9.3 g/dL (12.6-16.3); LEFT SHIFT FLG 20 (0-99); LIPEMIA HEMOLYSIS FLAG 80 (0-99); MEAN CELL HEMOGLOBIN 31.1 pg (27.9-34.1); MEAN CELL HEMOGLOBIN CONCENTR. 32.1 g/dL (32.4-36.7); MEAN PLATELET VOLUME 9.6 fL (8.7-11.7); PLATELET CLUMPS FLAG 0 (0-99); PLATELET COUNT 194 10^3/uL (150-400); RED BLOOD CELL COUNT 2.99 10^6/uL (4.18-5.33)
[2017-02-19 04:56] LABS: RED CELL DISTRIBUTION WIDTH 21.2 % (11.5-15.2)
[2017-02-19 05:08] LABS: ALANINE AMINOTRANSFERASE 85 IU/L (9-52); ALKALINE PHOSPHATASE 209 IU/L (38-126); ANION GAP 12 mEq/L (8-16); ASPARTATE AMINOTRANSFERASE 110 IU/L (14-46); BILIRUBIN,TOTAL 6.5 mg/dL (0.1-1.4); CARBON DIOXIDE 27 mEq/l (22-31); CHLORIDE 96 mEq/L (97-110); CREATININE 2.4 mg/dL (0.6-1.0); GLOMERULAR FILTRATION RATE 20; GLUCOSE 99 mg/dL (70-100); POTASSIUM 3.9 mEq/L (3.5-5.2); SODIUM 135 mEq/L (134-144); TOTAL PROTEIN 6.7 g/dL (6.3-8.2)
[2017-02-19 05:17] LABS: BILIRUBIN-CONJUGATED 5.6 mg/dL (0.0-0.5); BILIRUBIN-UNCONJUGATED 0.9 mg/dL (0.0-1.1)
[2017-02-19 06:04] LABS: HYPOCHROMIA 1+; PLATELET ESTIMATE ADEQUATE (ADEQ)
[2017-02-19] MEDS: HEPARIN 5,000 UNIT/0.5 ML SYR SC SCH ×2 (06:18→12:29)
[2017-02-19] MEDS: METOPROLOL TARTRATE 25 MG TAB PO SCH ×2 (08:50→20:49)
[2017-02-19] MEDS: MIDODRINE HCL 5 MG TAB PO SCH ×3 (08:51→16:25)
[2017-02-19] MEDS: AMIODARONE HCL 200 MG TAB PO SCH (08:51)
[2017-02-19] MEDS: FLUCONAZOLE 100 MG TAB PO SCH (08:51)
[2017-02-19] MEDS: FAMOTIDINE 20 MG TAB PO SCH (08:52)
--- NOTE | 2017-02-19 09:51 | SOAPPROG ---
SOAP Progress Note Assessment/Plan: Assessment: right pleural effusion with elevated LDH/suspicious for exudate- cannot exclude infected parapneumonic effusion though gram stain negative/ culture pending. Her wbc remains elevated without fever Overall stable with persistant back pain, weakness but with increasing oral intake NANCY on dialysis Plan:discussed value of HIDA scan with Dr. Starr/no focal tenderness in the RUQ to suggest cholecystitis Continue dialysis, wound care, PT/OT I would delay LTAC transfer for now Flakita Weeks MD, FACS 02/18/17 08:09 02/19/17 09:48 Subjective: c/o severe back pain Objective: Vital Signs Temp Pulse Resp BP Pulse Ox 36.9 C 93 16 111/74 94 02/19/17 08:21 02/19/17 08:21 02/19/17 08:21 02/19/17 08:21 02/19/17 08:21 Microbiology 02/10/17 22:00 Blood Culture - Final Blood 02/17/17 11:00 Gram Stain - Final Thoracic Fluid - Aspirate Laboratory Results 02/19/17 04:40 02/19/17 04:40 02/18/17 02/19/17 02/20/17 05:59 05:59 05:59 Intake Total 60 1140 Output Total 0 Balance 60 1140 PT 16.5 SEC (12.0-15.0) H 02/17/17 12:25 INR 1.33 (0.83-1.16) H 02/17/17 12:25 - Pending Discharge Pending Discharge Within 24 Hours: No Pending Discharge Within 48 Hours: No Physical Exam - Physical Exam General Appearance: moderate distress Respiratory: chest non-tender, decreased breath sounds Abdomen: normal bowel sounds, non-tender, soft, other (right lateral abd mass c/ w retroperitoneal hematoma) ICD10 Worksheet Patient Problems: Problems Problem Status Onset Atrial fibrillation Acute Diverticulitis Acute MRSA (methicillin resistant Staphylococcus aureus) Acute ~02/11/17
[2017-02-19] MEDS: LIDOCAINE 5% 1 EA PATCH TD SCH (12:29)
[2017-02-19] MEDS ORDERED: SINCALIDE 5 MCG VIAL IJ ONE (13:30)
--- NOTE | 2017-02-19 13:31 | SOAPPROG ---
DAYANNA Progress Note Assessment/Plan: Assessment:Plan: ARF-anuric -off CRRT -Hd yesterday -plan for Hd tomorrow -no evidence of recovery at this time Access-stable Hepatic-getting HIDA scan Dispo-suspect her renal recovery will be slow -when she goes to rehab it is likely that she will still be requiring acute dialysis -facility like [facility], [facility] with dialysis on-site would be ideal -if at [facility] or [facility] then the [place] [facility] staff could help manage her care -if at a nursing facility, then she would need transfer to dialysis at an [facility] facility as they are equipped with [employer] -Drs. Jara, Estelle etc would provide continuity of care 02/19/17 13:31 Subjective: stable overnite, delerium Objective: Vital Signs Temp Pulse Resp BP Pulse Ox 36.5 C 89 18 141/75 H 93 02/19/17 11:09 02/19/17 11:09 02/19/17 11:09 02/19/17 11:09 02/19/17 11:09 Microbiology 02/17/17 11:00 Gram Stain - Final Thoracic Fluid - Aspirate 02/10/17 22:00 Blood Culture - Final Blood Laboratory Results 02/19/17 04:40 02/19/17 04:40 02/18/17 02/19/17 02/20/17 05:59 05:59 05:59 Intake Total 60 1140 Output Total 0 Balance 60 1140 PT 16.5 SEC (12.0-15.0) H 02/17/17 12:25 INR 1.33 (0.83-1.16) H 02/17/17 12:25 ICD10 Worksheet Patient Problems: Problems Problem Status Onset Atrial fibrillation Acute Diverticulitis Acute MRSA (methicillin resistant Staphylococcus aureus) Acute ~02/11/17
--- NOTE | 2017-02-19 16:56 | HOSPPROG ---
Hospitalist Progress Note Assessment/Plan: Assessment: 72-year-old female presents with anastomotic leak and peritonitis after hemicolectomy for diverticulitis, complicated by retroperitoneal hematoma and subsequent PEA arrest and septic shock, resp failure, ongoing leukocytosis and back pain Plan: 1. Septic shock. Source of infxn (pneumonia/peritonitis), resulting in autonomic dysregulation in setting of infxn, required levophed and midodrine 2. Anastomotic leak. S/p sigmoid resection, s/p ileostomy, gen surgery remains primary service - goal is to increase enteric nutrition, encourage PO 3. Peritonitis. Polymicrobial w/ bacteroides on cx - s/p 3 weeks IV Zosyn 4. Retroperitoneal bleed with hematoma. Acute, s/p embolization x 2, repeat CT a /p stable - hematoma likely causing back pain - d/w patient//Dr. Weeks indications for surgical drainage, and risk > benefit 5. Acute hypoxic respiratory failure. 2/2 hospital assoc PNA and volume overload in setting of ATN, NOT a direct result of the original surgery - successfully extubated - cont 2L NC 6. ATN. 2/2 hypovolemia/hypoperfusion, resulting in ATN and requiring HD - UOP declined this week, has ongoing need for HD - has tunneled cath for outpt HD - instructions in Dr. Onofre's note re: outpt HD at LTAC 7. PEA arrest. Likely 2/2 hypoxia, approx 7mins CPR w/ return of circulation 8. Morbid obesity. BMI 41, increases risk of morbidity/mortality 9. Hypotension. Occurs w/ volume removal (HD) 2/2 intravascular depletion and poor oncotic pressure 10. Persistent Afib. Acute RVR intermittently, PACs ongoing, requiring amio/ metoprolol to remain in NSR - holding on systemic anticoagulation given recent bleed 11. Thrombocytopenia. Likely consumptive 12. Hyponatremia. Acute, likely 2/2 hypovolemia, improved 13. Back pain. Lidoderm patch preferred by patient, pervasive - initiate oxy CR, gauge effect, cont IR - getting HIDA to ensure not cholestatic given persistently elevated LFTs 14. Pleural effusion. Exudative on thora, CXR w/ improvement (personally interpreted) - does not appear to be empyema, most likely parapneumonic exudative, GS neg 15. MRSA colonization 16. Acute blood loss anemia. 2/2 retroperitoneal hemorrhage, transfused 17. Suspected HCAP. Pulm infiltrates on CXR, treated w/ Zosyn, now off Abx Diet. PO intake Code. Full, family joint-MPOA PPx. High risk, SCDs given bleed Dispo. ADD unclear, pain worsening today, warranting further w/u Subjective: Counseled patient has been extensively regarding further workup for back pain, up titration of current opiates, risks greater than benefits of surgery for hematoma Objective: Vital Signs Temp Pulse Resp BP Pulse Ox 36.5 C 102 H 20 106/75 94 02/19/17 15:40 02/19/17 15:40 02/19/17 15:40 02/19/17 15:40 02/19/17 15:40 Microbiology 02/17/17 11:00 Gram Stain - Final Thoracic Fluid - Aspirate 02/10/17 22:00 Blood Culture - Final Blood Laboratory Results 02/19/17 04:40 02/19/17 04:40 02/18/17 02/19/17 02/20/17 05:59 05:59 05:59 Intake Total 60 1140 Output Total 0 100 Balance 60 1140 -100 PT 16.5 SEC (12.0-15.0) H 02/17/17 12:25 INR 1.33 (0.83-1.16) H 02/17/17 12:25 - Time Spent With Patient Time Spent with Patient: greater than 35 minutes Time Spent with Patient: Greater than 35 minutes spent on this patients care, greater than 50% of time spent counseling, educating, and coordinating care regarding the above mentioned plan. - Physical Exam Constitutional: chronically ill appearing, uncomfortable, No no apparent distress (moderately), No not in pain Cardiovascular: systolic murmur (II/ at sternum), edema (trace bilat LE) Respiratory: inspiratory crackles (bilat bases), No expiratory wheeze, No bronchial breath sounds Gastrointestinal: normoactive bowel sounds, no palpable masses, tenderness ( mild upper half), other (ostomy in place) Neurologic: AAOx3 Psychiatric: anxious, flat affect, No agitated ICD10 Worksheet Patient Problems: Problems Problem Status Onset MRSA (methicillin resistant Staphylococcus aureus) Acute ~02/11/17 Atrial fibrillation Acute Diverticulitis Acute
--- NOTE | 2017-02-19 18:25 | SOAPPROG ---
DAYANNA Progress Note Assessment/Plan: Assessment:Plan: ARF-anuric -off CRRT -Hd yesterday -plan for Hd tomorrow -no evidence of recovery at this time Access-stable Hepatic-s/p HIDA scan -slightly low EF -discussed with radiology -we will see what surgery thinks about this Dispo-suspect her renal recovery will be slow -when she goes to rehab it is likely that she will still be requiring acute dialysis -facility like [facility] ideal -if at [facility] [place] or [facility] then the [place] staff could help manage her care -if at a nursing facility, then she would need transfer to dialysis at an [facility] facility as they are equipped with [employer] -Drs. Jara, Estelle etc would provide continuity of care -discussed with later today -plan is for NCR -if she requires ongoing dialysis after rehab, we spoke of outpatient centers near her home in [place] 02/19/17 18:22 Subjective: restless Objective: Vital Signs Temp Pulse Resp BP Pulse Ox 36.5 C 102 H 20 106/75 94 02/19/17 15:40 02/19/17 15:40 02/19/17 15:40 02/19/17 15:40 02/19/17 15:40 Microbiology 02/17/17 11:00 Gram Stain - Final Thoracic Fluid - Aspirate 02/10/17 22:00 Blood Culture - Final Blood Laboratory Results 02/19/17 04:40 02/19/17 04:40 02/18/17 02/19/17 02/20/17 05:59 05:59 05:59 Intake Total 60 1140 Output Total 0 100 Balance 60 1140 -100 PT 16.5 SEC (12.0-15.0) H 02/17/17 12:25 INR 1.33 (0.83-1.16) H 02/17/17 12:25 Physical Exam - Physical Exam General Appearance: mild distress EENT: normal ENT inspection Neck: normal inspection Respiratory: decreased breath sounds Cardiac/Chest: regular rate, rhythm, No diastolic murmur, No systolic murmur Abdomen: normal bowel sounds, other (ostomy) Extremities: No swelling ICD10 Worksheet Patient Problems: Problems Problem Status Onset Atrial fibrillation Acute Diverticulitis Acute MRSA (methicillin resistant Staphylococcus aureus) Acute ~02/11/17
[2017-02-19] MEDS ORDERED: HYDROmorphONE/DILAUDID 1 MG/ML SYR IVP ONE (19:45)
[2017-02-19] MEDS: MELATONIN 3 MG TAB PO SCH (20:49)
[2017-02-19] MEDS: PATCH REMOVAL 1 EA PATCH TD SCH (20:49)
[2017-02-20] MEDS: HEPARIN 5,000 UNIT/0.5 ML SYR SC SCH ×4 (00:28→21:34)
[2017-02-20] MEDS: oxyCODONE IR 5 MG TAB PO PRN ×2 (00:28→04:56)
[2017-02-20] MEDS: CYCLOBENZAPRINE 10 MG TAB PO PRN (00:29)
[2017-02-20 05:11] LABS: ADD DIFF? YES; ADD MORPH? YES; ADD SCAN? NO; ATYPICAL LYMPHOCYTE FLAG 0 (0-99); FRAGMENT RBC FLAG 0 (0-99); HEMATOCRIT 31.4 % (38.0-47.0); HEMOGLOBIN 9.8 g/dL (12.6-16.3); LEFT SHIFT FLG 20 (0-99); LIPEMIA HEMOLYSIS FLAG 80 (0-99); MEAN CELL HEMOGLOBIN 30.6 pg (27.9-34.1); MEAN CELL HEMOGLOBIN CONCENTR. 31.2 g/dL (32.4-36.7); MEAN CELL VOLUME 98.1 fL (81.5-99.8); MEAN PLATELET VOLUME 9.9 fL (8.7-11.7); PLATELET CLUMPS FLAG 0 (0-99); PLATELET COUNT 227 10^3/uL (150-400)
[2017-02-20 05:13] LABS: RED CELL DISTRIBUTION WIDTH 21.6 % (11.5-15.2)
[2017-02-20 05:33] LABS: ALANINE AMINOTRANSFERASE 88 IU/L (9-52); ALBUMIN 3.3 g/dL (3.5-5.0); ALKALINE PHOSPHATASE 239 IU/L (38-126); ANION GAP 16 mEq/L (8-16); ASPARTATE AMINOTRANSFERASE 117 IU/L (14-46); BILIRUBIN,TOTAL 6.5 mg/dL (0.1-1.4); CALCIUM 9.4 mg/dL (8.5-10.4); CARBON DIOXIDE 25 mEq/l (22-31); CHLORIDE 96 mEq/L (97-110); CREATININE 3.2 mg/dL (0.6-1.0); GLOMERULAR FILTRATION RATE 14; GLUCOSE 120 mg/dL (70-100); SODIUM 137 mEq/L (134-144); TOTAL PROTEIN 7.3 g/dL (6.3-8.2)
[2017-02-20 05:48] LABS: BILIRUBIN-CONJUGATED 5.7 mg/dL (0.0-0.5); BILIRUBIN-UNCONJUGATED 0.8 mg/dL (0.0-1.1)
[2017-02-20 06:15] LABS: MACROCYTES 1+; MICROCYTES 1+
[2017-02-20 06:16] LABS: HYPOCHROMIA 1+; PLATELET ESTIMATE ADEQUATE (ADEQ); POLYCHROMASIA 1+
--- NOTE | 2017-02-20 08:34 | SOAPPROG ---
DAYANNA Progress Note Assessment/Plan: Assessment:Plan: ARF-anuric -off CRRT -Hd -plan for Hd today -no evidence of recovery at this time Access-stable Hepatic-s/p HIDA scan -slightly low EF -discussed with radiology yesterday -we will see what surgery thinks about this Dispo-suspect her renal recovery will be slow -when she goes to rehab it is likely that she will still be requiring acute dialysis -if still requiring dialysis after rehab complete then she would need transfer to dialysis under the care of [facility] -Drs. Jara, Estelle etc would provide continuity of care -plan is for NCR -if she requires ongoing dialysis after rehab, I spoke with her yesterday of outpatient options near her home in [place] 02/20/17 08:31 Subjective: verbal, restless, speech soft but clear Objective: Vital Signs Temp Pulse Resp BP Pulse Ox 36.6 C 96 18 108/65 98 02/20/17 07:54 02/20/17 07:54 02/20/17 07:54 02/20/17 07:54 02/20/17 07:54 Microbiology 02/17/17 11:00 Gram Stain - Final Thoracic Fluid - Aspirate 02/10/17 22:00 Blood Culture - Final Blood Laboratory Results 02/20/17 04:50 02/20/17 04:50 02/19/17 02/20/17 02/21/17 05:59 05:59 05:59 Intake Total 1140 200 Output Total 250 Balance 1140 -50 PT 16.5 SEC (12.0-15.0) H 02/17/17 12:25 INR 1.33 (0.83-1.16) H 02/17/17 12:25 Physical Exam - Physical Exam General Appearance: alert EENT: normal ENT inspection Neck: normal inspection Respiratory: lungs clear, normal breath sounds, No respiratory distress Cardiac/Chest: regular rate, rhythm Abdomen: normal bowel sounds, non-tender, other (ostomy) Extremities: other (unchanged) ICD10 Worksheet Patient Problems: Problems Problem Status Onset Atrial fibrillation Acute Diverticulitis Acute MRSA (methicillin resistant Staphylococcus aureus) Acute ~02/11/17
[2017-02-20] MEDS: AMIODARONE HCL 200 MG TAB PO SCH (09:07)
[2017-02-20] MEDS: METOPROLOL TARTRATE 25 MG TAB PO SCH ×2 (09:07→21:34)
[2017-02-20] MEDS: MIDODRINE HCL 5 MG TAB PO SCH ×3 (09:08→16:47)
[2017-02-20] MEDS: FAMOTIDINE 20 MG TAB PO SCH (09:08)
[2017-02-20] MEDS: LIDOCAINE 5% 1 EA PATCH TD SCH (09:08)
[2017-02-20] MEDS: FLUCONAZOLE 100 MG TAB PO SCH (09:08)
--- NOTE | 2017-02-20 10:05 | SOAPPROG ---
SOAP Progress Note Assessment/Plan: Assessment: Her wbc remains elevated with low grade fever/cultures no growth so far/HIDA no cystic or CBD obstruction (low EF not clinically significant), discussed possible hematoma infection as cause Overall stable with persistant back pain, weakness but with increasing oral intake NANCY on dialysis oral thrush Day#7 Diflucan Plan: reculture blood for fever spikes/repeat CT abd if this occurs/consider diagnostic aspiration Continue dialysis, wound care, PT/OT I would delay LTAC transfer for now S MD Desi, FACS 02/18/17 08:09 02/19/17 09:48 02/20/17 10:02 Subjective: awake/coughing after taking oral meds with sip of juice seems more alert today Objective: Vital Signs Temp Pulse Resp BP Pulse Ox 36.6 C 96 18 108/65 98 02/20/17 07:54 02/20/17 07:54 02/20/17 07:54 02/20/17 07:54 02/20/17 07:54 Microbiology 02/17/17 11:00 Gram Stain - Final Thoracic Fluid - Aspirate 02/10/17 22:00 Blood Culture - Final Blood Laboratory Results 02/20/17 04:50 02/20/17 04:50 02/19/17 02/20/17 02/21/17 05:59 05:59 05:59 Intake Total 1140 200 Output Total 250 Balance 1140 -50 PT 16.5 SEC (12.0-15.0) H 02/17/17 12:25 INR 1.33 (0.83-1.16) H 02/17/17 12:25 - Pending Discharge Pending Discharge Within 24 Hours: No Pending Discharge Within 48 Hours: No Physical Exam - Physical Exam General Appearance: mild distress Cardiac/Chest: regular rate, rhythm Abdomen: normal bowel sounds, soft, other (tender right flank/palpable hematoma RLQ-wound granulating/dressing changed) Skin: other (jaundice) Neuro/Psych: oriented x 3, depressed affect ICD10 Worksheet Patient Problems: Problems Problem Status Onset Atrial fibrillation Acute Diverticulitis Acute MRSA (methicillin resistant Staphylococcus aureus) Acute ~02/11/17
--- NOTE | 2017-02-20 13:18 | HOSPPROG ---
Hospitalist Progress Note Assessment/Plan: Assessment: 72-year-old female presents with anastomotic leak and peritonitis after hemicolectomy for diverticulitis, complicated by retroperitoneal hematoma and subsequent PEA arrest and septic shock, resp failure, ongoing leukocytosis and back pain Plan: 1. Septic shock. Source of infxn (pneumonia/peritonitis), resulting in autonomic dysregulation in setting of infxn, required levophed and midodrine 2. Anastomotic leak. S/p sigmoid resection, s/p ileostomy, gen surgery remains primary service - goal is to increase enteric nutrition, encourage PO 3. Peritonitis. Polymicrobial w/ bacteroides on cx - s/p 3 weeks IV Zosyn 4. Retroperitoneal bleed with hematoma. Acute, s/p embolization x 2, repeat CT a /p stable - hematoma likely causing back pain - d/w patient//Dr. Weeks indications for surgical drainage, and risk > benefit - hold on culturing at this time 5. Acute hypoxic respiratory failure. 2/2 hospital assoc PNA and volume overload in setting of ATN, NOT a direct result of the original surgery - successfully extubated - cont 2L NC 6. ATN. 2/2 hypovolemia/hypoperfusion, resulting in ATN and requiring HD - UOP declined this week, has ongoing need for HD - has tunneled cath for outpt HD - instructions in Dr. Onofre's note re: outpt HD at LTAC 7. PEA arrest. Likely 2/2 hypoxia, approx 7mins CPR w/ return of circulation 8. Morbid obesity. BMI 41, increases risk of morbidity/mortality 9. Hypotension. Occurs w/ volume removal (HD) 2/2 intravascular depletion and poor oncotic pressure 10. Persistent Afib. Acute RVR intermittently, PACs ongoing, requiring amio/ metoprolol to remain in NSR - holding on systemic anticoagulation given recent bleed 11. Thrombocytopenia. Likely consumptive 12. Hyponatremia. Acute, likely 2/2 hypovolemia, improved 13. Back pain. Lidoderm patch preferred by patient, pervasive - initiated oxy CR w/ good effect, cont IR - HIDA demonstrates no cholecystitis 14. Pleural effusion. Exudative on thora, CXR w/ improvement (personally interpreted) - does not appear to be empyema, most likely parapneumonic exudative, GS neg 15. MRSA colonization 16. Acute blood loss anemia. 2/2 retroperitoneal hemorrhage, transfused 17. Suspected HCAP. Pulm infiltrates on CXR, treated w/ Zosyn, now off Abx Diet. PO intake encouraged, extensive counseling w/ Dr. Weeks and patient and family re: increasing pO intake to try to avoid PEG/NGT if possible Code. Full, family joint-MPOA PPx. High risk, SCDs given bleed Dispo. ADD unclear, ongoing poor oral intake, unsafe to DC Subjective: Patient with ongoing poor oral intake, pain is better managed sustained release pain medication Objective: Vital Signs Temp Pulse Resp BP Pulse Ox 36.8 C 90 18 122/65 H 97 02/20/17 12:00 02/20/17 12:00 02/20/17 12:00 02/20/17 12:00 02/20/17 12:00 Microbiology 02/17/17 11:00 Gram Stain - Final Thoracic Fluid - Aspirate Laboratory Results 02/20/17 04:50 02/20/17 04:50 02/19/17 02/20/17 02/21/17 05:59 05:59 05:59 Intake Total 1140 200 Output Total 250 Balance 1140 -50 PT 16.5 SEC (12.0-15.0) H 02/17/17 12:25 INR 1.33 (0.83-1.16) H 02/17/17 12:25 - Time Spent With Patient Time Spent with Patient: greater than 35 minutes Time Spent with Patient: Greater than 35 minutes spent on this patients care, greater than 50% of time spent counseling, educating, and coordinating care regarding the above mentioned plan. - Physical Exam Constitutional: no apparent distress, not in pain, chronically ill appearing, uncomfortable Cardiovascular: systolic murmur (2/6 at apex), No irregularly irregular, No tachycardia, No edema Respiratory: reduced air movement (Right base), No expiratory wheeze, No inspiratory crackles, No bronchial breath sounds Gastrointestinal: normoactive bowel sounds, soft, non-tender abdomen, no palpable masses, other (Ostomy bag in place response to verbal stimuli) Neurologic: other (Response to verbal stimuli) Psychiatric: not anxious, flat affect, No agitated ICD10 Worksheet Patient Problems: Problems Problem Status Onset MRSA (methicillin resistant Staphylococcus aureus) Acute ~02/11/17 Atrial fibrillation Acute Diverticulitis Acute
[2017-02-20] MEDS ORDERED: CETIRIZINE 10 MG TAB PO ONE (21:12)
[2017-02-20] MEDS ORDERED: HEPARIN 50,000 UNIT/10 ML VIAL ONE (21:25)
[2017-02-20] MEDS: PATCH REMOVAL 1 EA PATCH TD SCH (21:34)
[2017-02-20] MEDS: MELATONIN 3 MG TAB PO SCH (21:34)
[2017-02-21] MEDS: HYDROmorphONE/DILAUDID 4 MG TAB PO PRN ×2 (05:33→17:59)
[2017-02-21] MEDS: HEPARIN 5,000 UNIT/0.5 ML SYR SC SCH (05:33)
[2017-02-21 05:47] LABS: ADD DIFF? YES; ADD MORPH? YES; ADD SCAN? NO; ATYPICAL LYMPHOCYTE FLAG 0 (0-99); FRAGMENT RBC FLAG 0 (0-99); HEMATOCRIT 30.5 % (38.0-47.0); HEMOGLOBIN 9.7 g/dL (12.6-16.3); LEFT SHIFT FLG 30 (0-99); LIPEMIA HEMOLYSIS FLAG 80 (0-99); MEAN CELL HEMOGLOBIN 31.2 pg (27.9-34.1); MEAN CELL HEMOGLOBIN CONCENTR. 31.8 g/dL (32.4-36.7); MEAN CELL VOLUME 98.1 fL (81.5-99.8); PLATELET CLUMPS FLAG 10 (0-99); PLATELET COUNT 181 10^3/uL (150-400); RED BLOOD CELL COUNT 3.11 10^6/uL (4.18-5.33)
[2017-02-21 05:57] LABS: ALANINE AMINOTRANSFERASE 84 IU/L (9-52); ALKALINE PHOSPHATASE 226 IU/L (38-126); ANION GAP 9 mEq/L (8-16); ASPARTATE AMINOTRANSFERASE 115 IU/L (14-46); BILIRUBIN,TOTAL 6.1 mg/dL (0.1-1.4); CALCIUM 9.6 mg/dL (8.5-10.4); CARBON DIOXIDE 26 mEq/l (22-31); CHLORIDE 97 mEq/L (97-110); CREATININE 2.3 mg/dL (0.6-1.0); GLOMERULAR FILTRATION RATE 21; GLUCOSE 111 mg/dL (70-100); POTASSIUM 3.7 mEq/L (3.5-5.2); SODIUM 132 mEq/L (134-144); TOTAL PROTEIN 7.2 g/dL (6.3-8.2)
[2017-02-21 06:01] LABS: RED CELL DISTRIBUTION WIDTH 21.5 % (11.5-15.2)
[2017-02-21 06:05] LABS: BILIRUBIN-CONJUGATED 5.1 mg/dL (0.0-0.5)
[2017-02-21 06:39] LABS: MICROCYTES 1+; PLATELET ESTIMATE ADEQUATE (ADEQ); POLYCHROMASIA 1+
[2017-02-21 06:40] LABS: ACANTHOCYTES 1+
--- NOTE | 2017-02-21 07:31 | SOAPPROG ---
SOAP Progress Note Assessment/Plan: Assessment: Her wbc is rising with low grade fevers Overall stable with persistant back pain, weakness but with increasing oral intake NANCY on dialysis oral thrush Day#8 Diflucan Plan: reculture blood/CT guided aspiration retroperitoneal hematoma/consider empiric antibiotic coverage Continue dialysis, wound care, PT/OT I would delay LTAC transfer for now Flakita Weeks MD, FACS 02/18/17 08:09 02/19/17 09:48 02/20/17 10:02 02/21/17 07:24 Subjective: sleeping/awakens easily, reports back pain Objective: Vital Signs Temp Pulse Resp BP Pulse Ox 37.4 C 101 H 20 113/96 H 97 02/21/17 04:00 02/21/17 04:00 02/21/17 04:00 02/21/17 04:00 02/21/17 04:00 Microbiology 02/17/17 11:00 Gram Stain - Final Thoracic Fluid - Aspirate Laboratory Results 02/21/17 05:25 02/21/17 05:25 02/20/17 02/21/17 02/22/17 05:59 05:59 05:59 Intake Total 200 440 Output Total 250 125 Balance -50 315 PT 16.5 SEC (12.0-15.0) H 02/17/17 12:25 INR 1.33 (0.83-1.16) H 02/17/17 12:25 Physical Exam - Physical Exam Respiratory: decreased breath sounds Cardiac/Chest: regular rate, rhythm Abdomen: normal bowel sounds, soft, other (Right Lower/right flank mass with localized tenderness) Skin: jaundice Neuro/Psych: depressed affect ICD10 Worksheet Patient Problems: Problems Problem Status Onset Atrial fibrillation Acute Diverticulitis Acute MRSA (methicillin resistant Staphylococcus aureus) Acute ~02/11/17
[2017-02-21 09:30] LABS: INR 1.36 (0.83-1.16); PROTIME(PATIENT) 16.8 SEC (12.0-15.0)
[2017-02-21] MEDS: FLUCONAZOLE 100 MG TAB PO SCH ×2 (11:06→11:30)
[2017-02-21] MEDS: FAMOTIDINE 20 MG TAB PO SCH (11:09)
[2017-02-21] MEDS: MIDODRINE HCL 5 MG TAB PO SCH ×3 (11:10→18:02)
[2017-02-21] MEDS: AMIODARONE HCL 200 MG TAB PO SCH (11:12)
[2017-02-21] MEDS: LIDOCAINE 5% 1 EA PATCH TD SCH (11:13)
[2017-02-21] MEDS: METOPROLOL TARTRATE 25 MG TAB PO SCH ×2 (11:15→21:07)
--- NOTE | 2017-02-21 14:36 | HOSPPROG ---
Hospitalist Progress Note Assessment/Plan: Assessment: 72-year-old female presents with anastomotic leak and peritonitis after hemicolectomy for diverticulitis, complicated by retroperitoneal hematoma and subsequent PEA arrest and septic shock, resp failure, ongoing leukocytosis and back pain, getting diagnostic aspirate today Plan: 1. Septic shock. Source of infxn (pneumonia/peritonitis), resulting in autonomic dysregulation in setting of infxn, required levophed and midodrine, resolved 2. Anastomotic leak. S/p sigmoid resection, s/p ileostomy, gen surgery remains primary service - d/w Dr. Weeks today re: placing fluoro SB tube today while patient is getting hematoma aspirate, but we will hold at this time given patient's frail condition and desire not to prolong sedation, will continue to encourage PO 3. Peritonitis. Polymicrobial w/ bacteroides on cx, s/p 3 weeks of zosyn, off abx 4. Retroperitoneal bleed with hematoma. Acute, s/p embolization x 2, repeat CT a /p stable - hematoma likely causing back pain - given that WBC remains high, pain persistent, get diagnostic aspirate today and culture via fluoro 5. Acute hypoxic respiratory failure. 2/2 hospital assoc PNA and volume overload in setting of ATN, NOT a direct result of the original surgery - successfully extubated - cont 2L NC 6. ATN. 2/2 hypovolemia/hypoperfusion, resulting in ATN and requiring HD - UOP declined this week, has ongoing need for HD - has tunneled cath for outpt HD - instructions in Dr. Onofre's note re: outpt HD at LTAC 7. PEA arrest. Likely 2/2 hypoxia, approx 7mins CPR w/ return of circulation 8. Morbid obesity. BMI 41, increases risk of morbidity/mortality 9. Hypotension. Intermittently occurs w/ volume removal (HD) 2/2 intravascular depletion and poor oncotic pressure 10. Persistent Afib. Acute RVR intermittently, PACs ongoing, requiring amio/ metoprolol to remain in NSR - holding on systemic anticoagulation given recent bleed 11. Thrombocytopenia. Likely consumptive, stable 12. Hyponatremia. Acute, likely 2/2 hypovolemia, improved 13. Back pain. Lidoderm patch preferred by patient, pervasive - initiated oxy CR w/ good effect, cont IR - patient more sedated today, d/w family, will reduce CR to HS only 14. Pleural effusion. Exudative on thora, CXR w/ improvement - does not appear to be empyema, most likely parapneumonic exudative, GS neg 15. MRSA colonization 16. Acute blood loss anemia. 2/2 retroperitoneal hemorrhage, transfused 17. Suspected HCAP. Pulm infiltrates on CXR, treated w/ Zosyn, now off Abx Diet. PO intake encouraged, extensive counseling w/ Dr. Weeks and patient and family re: increasing PO intake to try to avoid PEG/NGT if possible Code. Full, family joint-MPOA PPx. High risk, SCDs given bleed Dispo. ADD unclear, ongoing poor oral intake, unsafe to DC Subjective: counseled the patient and her regarding potential over- sedation with pain medications, patient feeling more sedate today, poor oral intake Objective: Vital Signs Temp Pulse Resp BP Pulse Ox 37.1 C 93 18 138/64 H 94 02/21/17 11:13 02/21/17 11:15 02/21/17 11:13 02/21/17 11:15 02/21/17 11:13 Microbiology 02/17/17 11:00 Gram Stain - Final Thoracic Fluid - Aspirate Body Fluid Culture - Final Laboratory Results 02/21/17 05:25 02/21/17 05:25 02/20/17 02/21/17 02/22/17 05:59 05:59 05:59 Intake Total 200 440 Output Total 250 125 Balance -50 315 PT 16.8 SEC (12.0-15.0) H 02/21/17 08:45 INR 1.36 (0.83-1.16) H 02/21/17 08:45 - Time Spent With Patient Time Spent with Patient: greater than 35 minutes Time Spent with Patient: Greater than 35 minutes spent on this patients care, greater than 50% of time spent counseling, educating, and coordinating care regarding the above mentioned plan. - Physical Exam Constitutional: no apparent distress, not in pain, chronically ill appearing, No uncomfortable Eyes: icteric sclera Cardiovascular: regular rate and rhythym, no murmur, rub, or gallop, No edema Respiratory: reduced air movement, No expiratory wheeze ( r), No inspiratory crackles (ight base), No bronchial breath sounds Gastrointestinal: normoactive bowel sounds, soft, non-tender abdomen, no palpable masses, other ( ostomy bag in place) Neurologic: other ( alert awake oriented x2 only to person and place) Psychiatric: not anxious, flat affect, other ( lethargic but arousable), No agitated ICD10 Worksheet Patient Problems: Problems Problem Status Onset MRSA (methicillin resistant Staphylococcus aureus) Acute ~02/11/17 Atrial fibrillation Acute Diverticulitis Acute
[2017-02-21] MEDS ORDERED: LIDOCAINE 1% 300 MG/30 ML SDV ONE (15:01)
--- NOTE | 2017-02-21 15:35 | SOAPPROG ---
DAYANNA Progress Note Assessment/Plan: Assessment:Plan: ARF-anuric -s/p CRRT -Hd Wednesday -plan for Hd Wednesday -no evidence of recovery at this time -if she has evidence of urinary incontinence, we may need to place feldman -bladder scan daily Access-stable Hepatic-s/p HIDA scan -slightly low EF GI-being evaluated for fluid collection Dispo-suspect her renal recovery will be slow -when she goes to rehab it is likely that she will still be requiring acute dialysis -if still requiring dialysis after rehab complete then she would need transfer to dialysis under the care of [facility] -Drs. Jara, Estelle etc would provide continuity of care -plan is for NCR -if she requires ongoing dialysis after rehab, I spoken with her of outpatient options near her home in [place] 02/21/17 15:32 Subjective: slightly more awake Objective: Vital Signs Temp Pulse Resp BP Pulse Ox 37.1 C 93 18 138/64 H 94 02/21/17 11:13 02/21/17 11:15 02/21/17 11:13 02/21/17 11:15 02/21/17 11:13 Microbiology 02/17/17 11:00 Gram Stain - Final Thoracic Fluid - Aspirate Body Fluid Culture - Final Laboratory Results 02/21/17 05:25 02/21/17 05:25 02/20/17 02/21/17 02/22/17 05:59 05:59 05:59 Intake Total 200 440 Output Total 250 125 Balance -50 315 PT 16.8 SEC (12.0-15.0) H 02/21/17 08:45 INR 1.36 (0.83-1.16) H 02/21/17 08:45 Physical Exam - Physical Exam General Appearance: no apparent distress EENT: normal ENT inspection Neck: normal inspection Respiratory: lungs clear, normal breath sounds, No respiratory distress Cardiac/Chest: regular rate, rhythm Abdomen: normal bowel sounds, other (ostomy) Extremities: swelling (unchanged) ICD10 Worksheet Patient Problems: Problems Problem Status Onset Atrial fibrillation Acute Diverticulitis Acute MRSA (methicillin resistant Staphylococcus aureus) Acute ~02/11/17
--- NOTE | 2017-02-21 16:08 | POSTOPPROG ---
Post Op Note Date of Operation: 02/21/17 Surgeon: Al Hernandez Anesthesia: Local (Specify) Pre-op Diagnosis: Retroperitoneal hematoma Post-op Diagnosis: Same Indication: Elevated WBC, fever Procedure: US-guided drainage of right retroperitoneal hematoma Findings: [address]; 1050 ml thick blood removed. Unknown if infected. Inf/Abcess present in the surg proc area at time of surgery?: No EBL: Minimal Complications: 0 Drains: Other (12 F pigtail drain.) Specimen(s): 15 ml sent to microbiology for stains and cultures.
[2017-02-21] MEDS: MELATONIN 3 MG TAB PO SCH (21:07)
[2017-02-21] MEDS: PATCH REMOVAL 1 EA PATCH TD SCH (21:07)
--- NOTE | 2017-02-22 08:16 | SOAPPROG ---
Downtime Inpatient MD Late Entry SOAP Note: Patient was seen this morning when [employer] was down/progress note recorded on paper in patients chart. cbc/gram stain + culture are pending >1600 ml total output from retroperitoneal drain since yesterday afternoon- sanguinous Imp: s/p perc drainage chronic retroperitoneal hematoma-culture/labs pending clinically improved with no fever Rec: will hold off on antibiotics pending gram stain/culture increase diet and activity S MD Desi, FACS
[2017-02-22 10:58] LABS: ADD DIFF? YES; ADD MORPH? YES; ADD SCAN? NO; ATYPICAL LYMPHOCYTE FLAG 10 (0-99); FRAGMENT RBC FLAG 0 (0-99); HEMATOCRIT 30.5 % (38.0-47.0); HEMOGLOBIN 9.6 g/dL (12.6-16.3); LEFT SHIFT FLG 20 (0-99); LIPEMIA HEMOLYSIS FLAG 80 (0-99); MEAN CELL HEMOGLOBIN 31.2 pg (27.9-34.1); MEAN CELL HEMOGLOBIN CONCENTR. 31.5 g/dL (32.4-36.7); MEAN PLATELET VOLUME 9.9 fL (8.7-11.7); PLATELET CLUMPS FLAG 0 (0-99); PLATELET COUNT 177 10^3/uL (150-400); RED BLOOD CELL COUNT 3.08 10^6/uL (4.18-5.33)
[2017-02-22 11:36] LABS: RED CELL DISTRIBUTION WIDTH 21.5 % (11.5-15.2)
[2017-02-22 12:16] LABS: MICROCYTES 1+; PLATELET ESTIMATE ADEQUATE (ADEQ); POLYCHROMASIA 1+
--- NOTE | 2017-02-22 12:36 | HOSPPROG ---
Hospitalist Progress Note Assessment/Plan: DIAGNOSES: # S/P PEA CARDIAC ARREST, LIKELY CAUSED BY ANEMIA AND ACUTE RESPIRATORY INSUFFICIENCY # SPONTANEOUS RETROPERITONEAL BLEED ON ANTICOAG / POST HEMORRHAGIC ANEMIA, S/P TRANSFUSION # ACUTE RESP FAILURE, REINTUBATION #2 # ACUTE METABOLIC ACIDOSIS # ACUTE RENAL FAILURE # ACUTE ANOXIC HEPATIC INJURY # COAGULOPATHY LIKELY MULTIFACTORIAL WITH ANOXIC HEPATIC INJURY, SEPSIS AND OTHER FACTORS # A FIB, RAPID V RATE - WILL NEED TO BE OFF ANTICOAG DUE TO HEMORRHAGE # LLL PNEUMONIA, STENOTROPHOMONAS IN SPUTUM # BACTEROIDES BACTEREMIA, LIKELY ABD SOURCE # ACUTE ENCEPHALOPATHY # S/P LAPAROSCOPIC SURGERY FOR DIVERTICULAR DISEASE; S/P INTRAABDOMINAL HEMORRAGE AND SURGICAL EXPLORATION/CLOT EVACUATION PLANS: -continue nutritional support with [employer] -Continue physical occupational therapy -Follow blood count with her continue to pass some blood from FRANK drain -Follow for any potential signs of fever -Goals to transfer to long-term acute care facility. I will review her recent progress with the other treating physicians and surgeons and make a decision on appropriate timing and goals for discharge SUBJECTIVE: "I feel awful" mild right-sided abdominal pain, no other discomfort Extremely weak OBJECTIVE Vitals reviewed: Stable without fever Exam: awake but fairly somnolent, oriented, not very talkative I did observe her working with physical occupational therapy, she is extremely weak but they are able to get her up to sitting on the bedside and she is able to support herself sitting at the bedside though not much else Skin warm and dry, pale Respirations not labored lungs very diminished Heart regular Abdomen soft with bowel sounds present not tender Nando-Mahan drain remains in place and still draining some blood Mild peripheral edema IV access site looks good Laboratory data: White blood cell count little bit higher today CBC otherwise stable Creatinine decreased today to 2.3 Objective: Vital Signs Temp Pulse Resp BP Pulse Ox 37.3 C 95 12 98/49 L 95 02/22/17 11:49 02/22/17 11:49 02/22/17 11:49 02/22/17 11:49 02/22/17 11:49 Microbiology 02/17/17 11:00 Gram Stain - Final Thoracic Fluid - Aspirate Body Fluid Culture - Final Laboratory Results 02/22/17 10:45 02/21/17 02/22/17 02/23/17 06:59 06:59 06:59 Intake Total 440 100 Output Total 125 880 120 Balance 315 -780 -120 PT 16.8 SEC (12.0-15.0) H 02/21/17 08:45 INR 1.36 (0.83-1.16) H 02/21/17 08:45 ICD10 Worksheet Patient Problems: Problems Problem Status Onset Atrial fibrillation Acute Diverticulitis Acute MRSA (methicillin resistant Staphylococcus aureus) Acute ~02/11/17
[2017-02-22 12:57] LABS: ADD DIFF? YES; ADD MORPH? YES; ADD SCAN? NO; ATYPICAL LYMPHOCYTE FLAG 0 (0-99); FRAGMENT RBC FLAG 20 (0-99); HEMATOCRIT 30.6 % (38.0-47.0); HEMOGLOBIN 9.7 g/dL (12.6-16.3); LEFT SHIFT FLG 40 (0-99); LIPEMIA HEMOLYSIS FLAG 80 (0-99); MEAN CELL HEMOGLOBIN 31.2 pg (27.9-34.1); MEAN CELL HEMOGLOBIN CONCENTR. 31.7 g/dL (32.4-36.7); MEAN CELL VOLUME 98.4 fL (81.5-99.8); MEAN PLATELET VOLUME 10.1 fL (8.7-11.7); PLATELET CLUMPS FLAG 20 (0-99); PLATELET COUNT 199 10^3/uL (150-400); RED BLOOD CELL COUNT 3.11 10^6/uL (4.18-5.33)
[2017-02-22 12:58] LABS: RED CELL DISTRIBUTION WIDTH 21.5 % (11.5-15.2)
[2017-02-22 13:13] LABS: HYPOCHROMIA 1+; MACROCYTES 1+; MICROCYTES 1+; PLATELET ESTIMATE ADEQUATE (ADEQ); POLYCHROMASIA 1+
[2017-02-22 14:31] LABS: ANION GAP 10 mEq/L (8-16); CARBON DIOXIDE 26 mEq/l (22-31); CHLORIDE 98 mEq/L (97-110); POTASSIUM 3.7 mEq/L (3.5-5.2); SODIUM 134 mEq/L (134-144)
[2017-02-22 14:32] LABS: CALCIUM 9.4 mg/dL (8.5-10.4); CREATININE 3.1 mg/dL (0.6-1.0); GLOMERULAR FILTRATION RATE 15; GLUCOSE 95 mg/dL (70-100)
[2017-02-22 14:33] LABS: ALANINE AMINOTRANSFERASE 79 IU/L (9-52); ALBUMIN 2.8 g/dL (3.5-5.0); ALKALINE PHOSPHATASE 206 IU/L (38-126); ASPARTATE AMINOTRANSFERASE 79 IU/L (14-46); BILIRUBIN,TOTAL 5.1 mg/dL (0.1-1.4); TOTAL PROTEIN 6.5 g/dL (6.3-8.2)
[2017-02-22 14:35] LABS: BILIRUBIN-CONJUGATED 4.4 mg/dL (0.0-0.5); BILIRUBIN-UNCONJUGATED 0.7 mg/dL (0.0-1.1)
--- NOTE | 2017-02-22 16:43 | SOAPPROG ---
SOAP Progress Note Assessment/Plan: Assessment/Plan: NANCY: Pt likely has developed ATN in setting of large retroperitoneal bleed with significant drop in Hgb as well as cardiac arrest. She also has R atrophic kidney at baseline but Cr prior to arrest 1.1. She is now on intermittent HD, still with poor UOP. - Will do HD tomorrow. - Will continue to monitor for renal recovery. Hypotension: much improved. midodrine down to 2.5mg TID, will continue to wean down as tolerated. Anemia: Hgb stable at 9.6, will continue to monitor. Subjective: No acute events overnight. Pt still with little UOP. She is not having much PO intake, has to keep encouraging her to eat, which is frustrating her. She has been somnolent. Objective: Vital Signs Temp Pulse Resp BP Pulse Ox 36.8 C 85 16 111/61 95 02/22/17 15:56 02/22/17 15:56 02/22/17 15:56 02/22/17 15:56 02/22/17 15:56 Laboratory Results 02/22/17 10:45 02/22/17 05:30 02/21/17 02/22/17 02/23/17 05:59 05:59 05:59 Intake Total 440 100 Output Total 125 880 190 Balance 315 -780 -190 PT 16.8 SEC (12.0-15.0) H 02/21/17 08:45 INR 1.36 (0.83-1.16) H 02/21/17 08:45 General: somnolent but arousable, oriented, no acute distress Eyes; EOMI, PERRL OP: Clear CV: RRR Resp: nonlabored respirations, CTAB Abd: Soft, NT Ext: +1 edema BLE Neuro: CN II-XII grossly intact, no asterixis Psych: cooperative, somewhat tearful ICD10 Worksheet Patient Problems: Problems Problem Status Onset Atrial fibrillation Acute Diverticulitis Acute MRSA (methicillin resistant Staphylococcus aureus) Acute ~02/11/17
--- NOTE | 2017-02-22 17:29 | SOAPPROG ---
Downtime Inpatient MD Late Entry SOAP Note: Patient's wbc is climbing/will initiate empiric coverage until hematoma cultures are available Flakita Weeks MD, FACS
[2017-02-22] MEDS ORDERED: ERTAPENEM 1 GM in NS 100 ML IV SCH (17:30)
--- NOTE | 2017-02-22 17:45 | SOAPPROG ---
Downtime Inpatient MD Late Entry SOAP Note: I discussed with Dr. Melvin, Infectious Diseases, who recommended holding off on empiric antibiotics until we have a definitive culture result. I asked his service to reconsult. Flakita Weeks MD, FACS
[2017-02-22] MEDS: METOPROLOL TARTRATE 25 MG TAB PO SCH ×2 (18:01→21:32)
[2017-02-22] MEDS: FAMOTIDINE 20 MG TAB PO SCH (19:51)
[2017-02-22] MEDS: AMIODARONE HCL 200 MG TAB PO SCH (19:51)
[2017-02-22] MEDS: MIDODRINE HCL 5 MG TAB PO SCH ×2 (19:51→20:00)
[2017-02-22] MEDS: LIDOCAINE 5% 1 EA PATCH TD SCH (19:51)
[2017-02-22] MEDS: PATCH REMOVAL 1 EA PATCH TD SCH (21:00)
[2017-02-22] MEDS: MELATONIN 3 MG TAB PO SCH (21:32)
[2017-02-22] MEDS: HYDROmorphONE/DILAUDID 4 MG TAB PO PRN (21:32)
[2017-02-23] MEDS: HYDROmorphONE/DILAUDID 4 MG TAB PO PRN ×2 (00:28→11:07)
[2017-02-23 04:53] LABS: % IMMATURE GRANULYOCYTES 1.8 % (0.0-1.1); ABSOLUTE IMMATURE GRANULOCYTES 0.27 10^3/uL (0.00-0.10); ADD DIFF? NO; ADD MORPH? YES; ADD SCAN? NO; ATYPICAL LYMPHOCYTE FLAG 10 (0-99); FRAGMENT RBC FLAG 0 (0-99); HEMATOCRIT 27.4 % (38.0-47.0); HEMOGLOBIN 8.7 g/dL (12.6-16.3); LEFT SHIFT FLG 10 (0-99); LIPEMIA HEMOLYSIS FLAG 80 (0-99); MEAN CELL HEMOGLOBIN 31.4 pg (27.9-34.1); MEAN CELL HEMOGLOBIN CONCENTR. 31.8 g/dL (32.4-36.7); MEAN CELL VOLUME 98.9 fL (81.5-99.8); MEAN PLATELET VOLUME 9.6 fL (8.7-11.7); PLATELET CLUMPS FLAG 10 (0-99); PLATELET COUNT 138 10^3/uL (150-400); RED BLOOD CELL COUNT 2.77 10^6/uL (4.18-5.33)
[2017-02-23 04:57] LABS: RED CELL DISTRIBUTION WIDTH 20.9 % (11.5-15.2)
[2017-02-23 05:02] LABS: ALANINE AMINOTRANSFERASE 71 IU/L (9-52); ALBUMIN 2.6 g/dL (3.5-5.0); ALKALINE PHOSPHATASE 183 IU/L (38-126); ANION GAP 10 mEq/L (8-16); ASPARTATE AMINOTRANSFERASE 63 IU/L (14-46); BILIRUBIN,TOTAL 4.6 mg/dL (0.1-1.4); CALCIUM 9.5 mg/dL (8.5-10.4); CARBON DIOXIDE 26 mEq/l (22-31); CHLORIDE 99 mEq/L (97-110); CREATININE 3.5 mg/dL (0.6-1.0); GLOMERULAR FILTRATION RATE 13; GLUCOSE 100 mg/dL (70-100); POTASSIUM 3.6 mEq/L (3.5-5.2); SODIUM 135 mEq/L (134-144); TOTAL PROTEIN 6.1 g/dL (6.3-8.2)
[2017-02-23 05:04] LABS: BILIRUBIN-UNCONJUGATED 0.6 mg/dL (0.0-1.1)
[2017-02-23] MEDS: diphenhydrAMINE 25 MG CAP PO PRN ×2 (05:31→22:00)
[2017-02-23] MEDS: HEPARIN 5,000 UNIT/0.5 ML SYR SC SCH ×3 (05:31→21:31)
[2017-02-23 05:37] LABS: HYPOCHROMIA 1+; PLATELET ESTIMATE DECREASED (ADEQ); POLYCHROMASIA 1+
--- NOTE | 2017-02-23 07:44 | SOAPPROG ---
SOAP Progress Note Assessment/Plan: Assessment: s/p drainage retroperitoneal hematoma/cultures pending bump in wbc trending back down/no fever spikes NANCY on dialysis Plan: monitor culture results/urine for culture/ID re-consult requested Continue dialysis, wound care, PT/OT I would delay LTAC transfer for now S MD Desi, FACS 02/18/17 08:09 02/19/17 09:48 02/20/17 10:02 02/21/17 07:24 02/23/17 07:41 Subjective: reports less back pain Objective: Vital Signs Temp Pulse Resp BP Pulse Ox 36.8 C 85 16 128/84 H 97 02/23/17 00:00 02/23/17 00:00 02/23/17 00:00 02/23/17 00:00 02/23/17 00:00 Laboratory Results 02/23/17 04:45 02/23/17 04:45 02/22/17 02/23/17 02/24/17 05:59 05:59 05:59 Intake Total 100 300 Output Total 880 280 Balance -780 20 PT 16.8 SEC (12.0-15.0) H 02/21/17 08:45 INR 1.36 (0.83-1.16) H 02/21/17 08:45 - Pending Discharge Pending Discharge Within 24 Hours: No Pending Discharge Within 48 Hours: No Physical Exam - Physical Exam General Appearance: alert, obese, other EENT: scleral icterus (R), scleral icterus (L) Cardiac/Chest: regular rate, rhythm Abdomen: non-tender, soft, other (lower abdominal wound dressing changed with NS /cotton gauze-good granulation tissue noted) Rectal: deferred Skin: jaundice Neuro/Psych: motor weakness, depressed affect ICD10 Worksheet Patient Problems: Problems Problem Status Onset Atrial fibrillation Acute Diverticulitis Acute MRSA (methicillin resistant Staphylococcus aureus) Acute ~02/11/17
[2017-02-23] MEDS: FAMOTIDINE 20 MG TAB PO SCH (10:16)
[2017-02-23] MEDS: METOPROLOL TARTRATE 25 MG TAB PO SCH ×2 (10:16→21:41)
[2017-02-23] MEDS: AMIODARONE HCL 200 MG TAB PO SCH (10:16)
[2017-02-23] MEDS: MIDODRINE HCL 5 MG TAB PO SCH ×5 (10:17→18:21)
--- NOTE | 2017-02-23 10:21 | PCMIDPN ---
Assessment/Plan: Assessment/Plan: 1. Leukocytosis: - LIkely multifactorial. -Afebrile. Wbc today is improved. Has not received any recent antibiotics. Was not given invanz yesterday -REcent IR drainage of large retroperitoneal bleed. GS no org, cx pending -f/u blood cx pending. (has picc line in place ) - LFt improving. -Continue to observe off antibiotics for now. Will f/u on cultures. 2. Sepsis with Peritonitis secondary to anastomotic leak with bacteremia: - s/p Zosyn, last dose on 01/28/17 3. s/p HAP with stenotrophomonas: -s/p bactrim Subjective: REconsulted secondary to leukocytosis. pt recently had IR drainage of large retroperitoneal hematoma. GS wit no organisms, cx pending. Afebrile. c/o some discomfort related to drain. winces occasionally. denies magda abd pain. denies sob. She is reluctant to converse today. Objective: Vital Signs Temp Pulse Resp BP Pulse Ox 37.1 C 88 20 104/60 92 02/23/17 08:00 02/23/17 08:00 02/23/17 08:00 02/23/17 08:00 02/23/17 08:00 Microbiology 02/21/17 16:04 Gram Stain - Final Peritoneal Fluid - Aspirate Laboratory Results 02/23/17 04:45 02/23/17 04:45 02/22/17 02/23/17 02/24/17 05:59 05:59 05:59 Intake Total 100 300 Output Total 880 280 Balance -780 20 - Physical Exam General Appearance: alert, no apparent distress Respiratory: coarse breath sounds (mild) Cardiac/Chest: regular rate, rhythm Extremities: No swelling Abdomen: normal bowel sounds, distended, tender (mild), other (almaz drain with bloody drainage) Skin: No erythema ICD10 Worksheet Patient Problems: Problems Problem Status Onset Atrial fibrillation Acute Diverticulitis Acute MRSA (methicillin resistant Staphylococcus aureus) Acute ~02/08/17
[2017-02-23] MEDS: LIDOCAINE 5% 1 EA PATCH TD SCH (10:22)
--- NOTE | 2017-02-23 10:29 | SOAPPROG ---
SOAP Progress Note Assessment/Plan: Assessment/Plan: NANCY: Pt likely has developed ATN in setting of large retroperitoneal bleed with significant drop in Hgb as well as cardiac arrest. She also has R atrophic kidney at baseline but Cr prior to arrest 1.1. She is now on intermittent HD, still with poor UOP. - Will do HD this afternoon. - Will continue to monitor for renal recovery. Hypotension: much improved. midodrine down to 2.5mg TID, will continue to wean down as tolerated. Anemia: Hgb down to 8.7 today, will continue to monitor. Subjective: No acute events overnight. Pt is breathing comfortably, not in pain but generally uncomfortable, having some itching today. She is trying to get more PO intake. Last night, she had urge to urinate, bladder scan shows 220ml urine , will be getting I/O cathed today. Objective: Vital Signs Temp Pulse Resp BP Pulse Ox 37.1 C 90 20 104/60 92 02/23/17 08:00 02/23/17 10:16 02/23/17 08:00 02/23/17 10:16 02/23/17 08:00 Microbiology 02/21/17 16:04 Gram Stain - Final Peritoneal Fluid - Aspirate Laboratory Results 02/23/17 04:45 02/23/17 04:45 02/22/17 02/23/17 02/24/17 05:59 05:59 05:59 Intake Total 100 300 Output Total 880 280 Balance -780 20 PT 16.8 SEC (12.0-15.0) H 02/21/17 08:45 INR 1.36 (0.83-1.16) H 02/21/17 08:45 General: somnolent but arousable, oriented, no acute distress Eyes; EOMI, PERRL OP: Clear CV: RRR Resp: nonlabored respirations Abd: Soft, nontender Ext: +1 edema BLE Neuro: CN II-XII Grossly intact, no asterixis Psych: cooperative, blunted affect ICD10 Worksheet Patient Problems: Problems Problem Status Onset Atrial fibrillation Acute Diverticulitis Acute MRSA (methicillin resistant Staphylococcus aureus) Acute ~02/08/17
[2017-02-23] MEDS ORDERED: HYDROmorphONE/DILAUDID 2 MG/ML INJ ONE (10:42)
--- NOTE | 2017-02-23 10:55 | HOSPPROG ---
Hospitalist Progress Note Assessment/Plan: DIAGNOSES: # S/P SEPSIS DUE TO PERITIONITIS FROM ANASTAMOTIC LEAK, FOLLOWING LAP SURG FOR DIVERTICULAR DISEASE -bacteroides in blood cxs, suspect multibacterial bowel pathogens # ACUTE RESP FAILURE, REINTUBATION x 2 -currently doing well on NC O2 # S/P PEA CARDIAC ARREST, LIKELY CAUSED BY ANEMIA AND ACUTE RESPIRATORY INSUFFICIENCY # ACUTE ENCEPHALOPATHY due to above -continues slow improvement, but remains very lethargic, not very conversant , not eating well # ACUTE RENAL FAILURE due to above -continues on hemodialysis at this time # SPONTANEOUS RETROPERITONEAL BLEED ON ANTICOAG / POST HEMORRHAGIC ANEMIA, S/P TRANSFUSION -FRANK drain in place still with modest amount of blood in drain # ACUTE ANOXIC HEPATIC INJURY -continues to slowly resolve # A FIB, RAPID V RATE - WILL NEED TO BE OFF ANTICOAG DUE TO HEMORRHAGE # S/P LLL PNEUMONIA, stenotrophomonas from sputum cultures # SEVERE DECONDITIONING -continues work w PT and OT, does cooperate for this work # S/P LAPAROSCOPIC SURGERY FOR DIVERTICULAR DISEASE; S/P INTRAABDOMINAL HEMORRAGE AND SURGICAL EXPLORATION/CLOT EVACUATION PLANS: -continue nutritional support with nepro -Continue physical occupational therapy -Continue to observe for any signs of infection -OP OT -wound care (I reviewed the small abd wounds with the nurse and instructed on topical care and dressing, nurse to follow) -ostomy care -Goals to eventually transfer to long-term acute care facility. SUBJECTIVE: very weak no other bothersome symptoms OBJECTIVE Vitals reviewed: Stable without fever Exam: awake but fairly somnolent, oriented, not very talkative I did observe her working with physical occupational therapy, she is extremely weak but they are able to get her up to sitting on the bedside and she is able to support herself sitting at the bedside though not much else Skin warm and dry, pale -there are two small open wounds to the left of her ostomy that each have small amount of purulent drainage today but no fluctuance or surrounding cellulitis, no necrosis Respirations not labored lungs very diminished Heart regular Abdomen soft with bowel sounds present not tender Nando-Mahan drain remains in place and still draining some blood Mild peripheral edema IV access site looks good Laboratory data: White blood cell count still high but a bit lower than yest Objective: Vital Signs Temp Pulse Resp BP Pulse Ox 37.1 C 90 20 104/60 92 02/23/17 08:00 02/23/17 10:16 02/23/17 08:00 02/23/17 10:16 02/23/17 08:00 Microbiology 02/21/17 16:04 Gram Stain - Final Peritoneal Fluid - Aspirate Laboratory Results 02/23/17 04:45 02/23/17 04:45 02/22/17 02/23/17 02/24/17 06:59 06:59 06:59 Intake Total 100 300 Output Total 880 280 Balance -780 20 PT 16.8 SEC (12.0-15.0) H 02/21/17 08:45 INR 1.36 (0.83-1.16) H 02/21/17 08:45 ICD10 Worksheet Patient Problems: Problems Problem Status Onset Atrial fibrillation Acute Diverticulitis Acute MRSA (methicillin resistant Staphylococcus aureus) Acute ~02/08/17
[2017-02-23] MEDS: HYDROmorphONE/DILAUDID 2 MG TAB PO PRN ×2 (18:22→21:56)
[2017-02-23] MEDS ORDERED: HEPARIN 50,000 UNIT/10 ML VIAL ONE (18:44)
[2017-02-23] MEDS: MELATONIN 3 MG TAB PO SCH (21:41)
[2017-02-23] MEDS: PATCH REMOVAL 1 EA PATCH TD SCH (22:04)
[2017-02-24] MEDS: HYDROmorphONE/DILAUDID 2 MG TAB PO PRN ×4 (01:18→20:06)
[2017-02-24] MEDS: diphenhydrAMINE 25 MG CAP PO PRN ×2 (05:32→20:04)
[2017-02-24] MEDS: HEPARIN 5,000 UNIT/0.5 ML SYR SC SCH ×3 (05:32→21:21)
[2017-02-24] MEDS: AMIODARONE HCL 200 MG TAB PO SCH (08:58)
[2017-02-24] MEDS: METOPROLOL TARTRATE 25 MG TAB PO SCH ×2 (08:58→20:04)
[2017-02-24] MEDS: FAMOTIDINE 20 MG TAB PO SCH (08:59)
[2017-02-24] MEDS: MIDODRINE HCL 5 MG TAB PO SCH ×3 (08:59→16:59)
[2017-02-24] MEDS: LIDOCAINE 5% 1 EA PATCH TD SCH (09:02)
--- NOTE | 2017-02-24 12:07 | SOAPPROG ---
SOAP Progress Note Assessment/Plan: Assessment: 1. Oliguric NANCY Some UO. Total body volume up, but IV volume ok. Next HD , cath site ok. 2. Anemia Hg down yesterday. Recheck 4. LFTS slowly improving 02/24/17 12:05 Subjective: About the same Objective: Vital Signs Temp Pulse Resp BP Pulse Ox 36.5 C 96 20 130/53 H 100 02/24/17 08:00 02/24/17 08:00 02/24/17 08:00 02/24/17 08:00 02/24/17 08:00 Microbiology 02/21/17 16:04 Gram Stain - Final Peritoneal Fluid - Aspirate Laboratory Results 02/23/17 04:45 02/23/17 04:45 02/23/17 02/24/17 02/25/17 05:59 05:59 05:59 Intake Total 300 325 Output Total 280 661 70 Balance 20 -336 -70 PT 16.8 SEC (12.0-15.0) H 02/21/17 08:45 INR 1.36 (0.83-1.16) H 02/21/17 08:45 Physical Exam - Physical Exam General Appearance: alert Respiratory: decreased breath sounds Cardiac/Chest: regular rate, rhythm Abdomen: other (drain and ostomy noted, soft) Extremities: pedal edema (somnolent) ICD10 Worksheet Patient Problems: Problems Problem Status Onset Atrial fibrillation Acute Diverticulitis Acute MRSA (methicillin resistant Staphylococcus aureus) Acute ~02/08/17
[2017-02-24 13:00] LABS: ADD DIFF? YES; ADD SCAN? NO; ATYPICAL LYMPHOCYTE FLAG 0 (0-99); FRAGMENT RBC FLAG 0 (0-99); HEMATOCRIT 28.3 % (38.0-47.0); HEMOGLOBIN 8.9 g/dL (12.6-16.3); LEFT SHIFT FLG 20 (0-99); LIPEMIA HEMOLYSIS FLAG 80 (0-99); MEAN CELL HEMOGLOBIN 31.2 pg (27.9-34.1); MEAN CELL HEMOGLOBIN CONCENTR. 31.4 g/dL (32.4-36.7); MEAN CELL VOLUME 99.3 fL (81.5-99.8); MEAN PLATELET VOLUME 10.2 fL (8.7-11.7); PLATELET CLUMPS FLAG 10 (0-99); PLATELET COUNT 127 10^3/uL (150-400); RED BLOOD CELL COUNT 2.85 10^6/uL (4.18-5.33)
[2017-02-24 13:05] LABS: ADD MORPH? NO; RED CELL DISTRIBUTION WIDTH 20.2 % (11.5-15.2)
[2017-02-24 13:46] LABS: PLATELET ESTIMATE DECREASED (ADEQ); POLYCHROMASIA 1+
--- NOTE | 2017-02-24 15:38 | WOCRNPDOC ---
WOCRN Advanced Assessment Note - Skin Integrity Problem, Advanced Assess Left Abdomen Dressing Type: Open to Air Exudate Amount: Scant Exudate Color: Reddish/Yellow Exudate Characteristic(s): Dried, Serosanguinous Charity Wound Tissue: Intact Charity Wound Swelling: None Wound Bed Color: Brown Wound Bed Constitution: Scab Site Odor: None Site Measurement - Head-to-Toe Length X Width X Depth (cm): Proximal: 1cmx0.8cmx0.2cm. Distal:0.9cmx1.3cmx0.2cm Skin Integrity Problem Comment: Two distinct wounds adjacent to each other on L abdomen r/t lap sites. Presently both wounds are dried and crusted over. Charity- wound skin is intact w/ no erythema noted. Advise covering both wounds w/ Silvasorb gel and a foam dressing to provide moist healing. Wound care will follow up on Wednesday to reassess.
--- NOTE | 2017-02-24 15:48 | SOAPPROG ---
SOAP Progress Note Assessment/Plan: Assessment: s/p drainage retroperitoneal hematoma/cultures pending bump in wbc trending back down/no fever spikes NANCY on dialysis persistant poor caloric intake, discussed possible need for feeding tube Plan: monitor culture results/urine for culture + Constance/ID consult appreciated Continue dialysis, wound care, PT/OT I would delay LTAC transfer for now S MD Desi, FACS 02/18/17 08:09 02/19/17 09:48 02/20/17 10:02 02/21/17 07:24 02/23/17 07:41 02/24/17 15:46 Subjective: sitting up in chair/confused/appears uncomfortable Objective: Vital Signs Temp Pulse Resp BP Pulse Ox 36.6 C 89 18 119/59 L 95 02/24/17 12:16 02/24/17 12:16 02/24/17 12:16 02/24/17 12:16 02/24/17 12:16 Microbiology 02/21/17 16:04 Gram Stain - Final Peritoneal Fluid - Aspirate Laboratory Results 02/24/17 12:40 02/23/17 04:45 02/23/17 02/24/17 02/25/17 05:59 05:59 05:59 Intake Total 300 325 Output Total 280 661 110 Balance 20 -336 -110 PT 16.8 SEC (12.0-15.0) H 02/21/17 08:45 INR 1.36 (0.83-1.16) H 02/21/17 08:45 Physical Exam - Physical Exam General Appearance: mild distress Respiratory: lungs clear, decreased breath sounds Cardiac/Chest: regular rate, rhythm Abdomen: normal bowel sounds, non-tender, soft, bruit, other (stoma o.k. FRANK old blood) ICD10 Worksheet Patient Problems: Problems Problem Status Onset Atrial fibrillation Acute Diverticulitis Acute MRSA (methicillin resistant Staphylococcus aureus) Acute ~02/08/17
--- NOTE | 2017-02-24 17:45 | HOSPPROG ---
Hospitalist Progress Note Assessment/Plan: DIAGNOSES: # S/P SEPSIS DUE TO PERITIONITIS FROM ANASTAMOTIC LEAK, FOLLOWING LAP SURG FOR DIVERTICULAR DISEASE -bacteroides in blood cxs, suspect multibacterial bowel pathogens # ACUTE RESP FAILURE, REINTUBATION x 2 -currently doing well on [place] O2 # S/P PEA CARDIAC ARREST, LIKELY CAUSED BY ANEMIA AND ACUTE RESPIRATORY INSUFFICIENCY # ACUTE ENCEPHALOPATHY due to above -continues slow improvement, but remains very lethargic, not very conversant , not eating well # ACUTE RENAL FAILURE due to above -continues on hemodialysis at this time but is starting to make some urine # SPONTANEOUS RETROPERITONEAL BLEED ON ANTICOAG / POST HEMORRHAGIC ANEMIA, S/P TRANSFUSION AND EMBOLIZATION OF SEVERAL VESSELS IN INTERVENTIONAL RADIOLOGY -FRANK drain in place still with modest amount of blood in drain which appears probably old # ACUTE ANOXIC HEPATIC INJURY -continues to slowly resolve # A FIB, RAPID V RATE - WILL NEED TO BE OFF ANTICOAG DUE TO HEMORRHAGE # S/P LLL PNEUMONIA, stenotrophomonas from sputum cultures # SEVERE DECONDITIONING -continues work w PT and OT, does cooperate for this work # S/P LAPAROSCOPIC SURGERY FOR DIVERTICULAR DISEASE; S/P INTRAABDOMINAL HEMORRAGE AND SURGICAL EXPLORATION/CLOT EVACUATION PLANS: -continue nutritional support with nepro; depending on her intake may need to consider using NG tube to increase her calorie and protein intake -Continue physical occupational therapy -Continue to observe for any signs of infection -OP OT -wound care (I reviewed the small abd wounds with the nurse and instructed on topical care and dressing, nurse to follow) -ostomy care -Goal is to eventually transfer to long-term acute care facility. SUBJECTIVE: no new aches pains, fever symptoms, dyspnea, nausea or other abnormal symptoms Remains very weak, limited participation with physical therapy OBJECTIVE Vitals reviewed: Stable without fever Exam: awake, more talkative today though not much else Skin warm and dry, pale -the two small open wounds to the left of her ostomy look much better today Respirations not labored lungs very diminished Heart regular Abdomen soft with bowel sounds present not tender Nando-Mahan drain remains in place and still draining some blood Mild peripheral edema IV access site looks good Laboratory data: White blood cell count still high but a bit lower than yest I reviewed in detail with Dr. Lorne Weeks today Objective: Vital Signs Temp Pulse Resp BP Pulse Ox 37.4 C 92 20 121/63 H 91 L 02/24/17 16:00 02/24/17 16:00 02/24/17 16:00 02/24/17 16:00 02/24/17 16:00 Microbiology 02/21/17 16:04 Gram Stain - Final Peritoneal Fluid - Aspirate Laboratory Results 02/24/17 12:40 02/23/17 04:45 02/23/17 02/24/17 02/25/17 06:59 06:59 06:59 Intake Total 300 325 Output Total 280 661 110 Balance 20 -336 -110 PT 16.8 SEC (12.0-15.0) H 02/21/17 08:45 INR 1.36 (0.83-1.16) H 02/21/17 08:45 ICD10 Worksheet Patient Problems: Problems Problem Status Onset Atrial fibrillation Acute Diverticulitis Acute MRSA (methicillin resistant Staphylococcus aureus) Acute ~02/08/17
[2017-02-24] MEDS: MELATONIN 3 MG TAB PO SCH (20:04)
[2017-02-24] MEDS: PATCH REMOVAL 1 EA PATCH TD SCH (21:21)
[2017-02-25] MEDS: HYDROmorphONE/DILAUDID 2 MG TAB PO PRN ×2 (04:51→14:08)
[2017-02-25] MEDS: HEPARIN 5,000 UNIT/0.5 ML SYR SC SCH ×3 (05:08→22:33)
[2017-02-25 05:26] LABS: ADD DIFF? YES; ADD SCAN? NO; ATYPICAL LYMPHOCYTE FLAG 10 (0-99); FRAGMENT RBC FLAG 0 (0-99); HEMATOCRIT 26.9 % (38.0-47.0); HEMOGLOBIN 8.5 g/dL (12.6-16.3); LEFT SHIFT FLG 20 (0-99); LIPEMIA HEMOLYSIS FLAG 80 (0-99); MEAN CELL HEMOGLOBIN 30.9 pg (27.9-34.1); MEAN CELL HEMOGLOBIN CONCENTR. 31.6 g/dL (32.4-36.7); MEAN CELL VOLUME 97.8 fL (81.5-99.8); MEAN PLATELET VOLUME 10.3 fL (8.7-11.7); PLATELET CLUMPS FLAG 20 (0-99); PLATELET COUNT 124 10^3/uL (150-400); RED BLOOD CELL COUNT 2.75 10^6/uL (4.18-5.33)
[2017-02-25 06:24] LABS: ADD MORPH? NO; RED CELL DISTRIBUTION WIDTH 20.1 % (11.5-15.2)
--- NOTE | 2017-02-25 06:30 | SOAPPROG ---
SOAP Progress Note Assessment/Plan: Assessment: s/p drainage retroperitoneal hematoma/cultures no growth at 48 hours /output 145/24 hr. bump in wbc trending back down/low grade fevers NANCY on dialysis persistant poor caloric intake, discussed possible need for feeding tube Plan: monitor culture results/urine for culture + Constance/ID consult appreciated Continue dialysis, wound care, PT/OT Repeat CT and possible drain removal tomorrow Flakita Weeks MD, FACS 02/18/17 08:09 02/19/17 09:48 02/20/17 10:02 02/21/17 07:24 02/23/17 07:41 02/24/17 15:46 02/25/17 06:27 Subjective: tearful-"I can't stand this bed" reports less back pain Objective: Vital Signs Temp Pulse Resp BP Pulse Ox 36.6 C 101 H 18 128/59 H 91 L 02/24/17 22:50 02/24/17 22:50 02/24/17 22:50 02/24/17 22:50 02/24/17 22:50 Microbiology 02/21/17 16:04 Gram Stain - Final Peritoneal Fluid - Aspirate Laboratory Results 02/25/17 05:08 02/23/17 04:45 02/24/17 02/25/17 02/26/17 05:59 05:59 05:59 Intake Total 325 450 Output Total 661 245 Balance -336 205 PT 16.8 SEC (12.0-15.0) H 02/21/17 08:45 INR 1.36 (0.83-1.16) H 02/21/17 08:45 Physical Exam - Physical Exam General Appearance: alert, mild distress, obese Cardiac/Chest: regular rate, rhythm Abdomen: non-tender, soft, other (stoma o.k./FRANK old blood/lower midline incision dressing intact) Skin: warm/dry, jaundice Neuro/Psych: depressed affect ICD10 Worksheet Patient Problems: Problems Problem Status Onset Atrial fibrillation Acute Diverticulitis Acute MRSA (methicillin resistant Staphylococcus aureus) Acute ~02/08/17
[2017-02-25 06:49] LABS: PLATELET ESTIMATE ADEQUATE (ADEQ)
[2017-02-25 06:50] LABS: HYPOCHROMIA 1+; POLYCHROMASIA 1+
[2017-02-25 06:52] LABS: MICROCYTES 1+
[2017-02-25] MEDS: FAMOTIDINE 20 MG TAB PO SCH (08:19)
[2017-02-25] MEDS: AMIODARONE HCL 200 MG TAB PO SCH (08:19)
[2017-02-25] MEDS: MIDODRINE HCL 5 MG TAB PO SCH ×3 (08:19→16:07)
[2017-02-25] MEDS: METOPROLOL TARTRATE 25 MG TAB PO SCH ×2 (08:20→20:24)
[2017-02-25] MEDS: LIDOCAINE 5% 1 EA PATCH TD SCH (10:10)
--- NOTE | 2017-02-25 10:39 | SOAPPROG ---
SOAP Progress Note Assessment/Plan: Assessment: 1. Oliguric NANCY Remains oliguric. HD on TTS schedule for now. Her BP has been lowish. She has significant edema, but will need to be patient in mobilizing this. 2. Anemia Hg stable, follow. 3. Deconditioning/Nutrition May benefit from SBFT. Also, continue PT. Looks better today. 4. LFTS slowly improving Subjective: Doing fair Objective: Vital Signs Temp Pulse Resp BP Pulse Ox 37.1 C 97 18 143/75 H 94 02/25/17 08:00 02/25/17 08:00 02/25/17 08:00 02/25/17 08:00 02/25/17 08:00 Microbiology 02/21/17 16:04 Gram Stain - Final Peritoneal Fluid - Aspirate Laboratory Results 02/25/17 05:08 02/23/17 04:45 02/24/17 02/25/17 02/26/17 05:59 05:59 05:59 Intake Total 325 450 Output Total 661 245 Balance -336 205 PT 16.8 SEC (12.0-15.0) H 02/21/17 08:45 INR 1.36 (0.83-1.16) H 02/21/17 08:45 Physical Exam - Physical Exam General Appearance: no apparent distress Neck: other (Some redness at exit site of HD cath; follow) Respiratory: decreased breath sounds Cardiac/Chest: regular rate, rhythm Abdomen: soft Extremities: pedal edema (2+ thigh edema) ICD10 Worksheet Patient Problems: Problems Problem Status Onset Atrial fibrillation Acute Diverticulitis Acute MRSA (methicillin resistant Staphylococcus aureus) Acute ~02/08/17
--- NOTE | 2017-02-25 15:10 | HOSPPROG ---
Hospitalist Progress Note Assessment/Plan: DIAGNOSES: # S/P SEPSIS DUE TO PERITIONITIS FROM ANASTAMOTIC LEAK, FOLLOWING LAP SURG FOR DIVERTICULAR DISEASE -bacteroides in blood cxs, suspect multibacterial bowel pathogens # ACUTE RESP FAILURE, REINTUBATION x 2 -currently doing well on [place] O2 # S/P PEA CARDIAC ARREST, LIKELY CAUSED BY ANEMIA AND ACUTE RESPIRATORY INSUFFICIENCY # ACUTE ENCEPHALOPATHY due to above -continues slow improvement, but remains very lethargic, not very conversant , not eating well # ACUTE RENAL FAILURE due to above -continues on hemodialysis at this time but is starting to make some urine # SPONTANEOUS RETROPERITONEAL BLEED ON ANTICOAG / POST HEMORRHAGIC ANEMIA, S/P TRANSFUSION AND EMBOLIZATION OF SEVERAL VESSELS IN INTERVENTIONAL RADIOLOGY -FRANK drain in place still with modest amount of blood in drain which appears probably old # ACUTE ANOXIC HEPATIC INJURY -continues to slowly resolve # A FIB, RAPID V RATE - WILL NEED TO BE OFF ANTICOAG DUE TO HEMORRHAGE # S/P LLL PNEUMONIA, stenotrophomonas from sputum cultures # SEVERE DECONDITIONING -continues work w PT and OT, does cooperate for this work # S/P LAPAROSCOPIC SURGERY FOR DIVERTICULAR DISEASE; S/P INTRAABDOMINAL HEMORRAGE AND SURGICAL EXPLORATION/CLOT EVACUATION PLANS: -continue nutritional support with nepro; depending on her intake may need to consider using NG tube to increase her calorie and protein intake -Continue physical occupational therapy -Continue to observe for any signs of infection -OP OT -wound care -Repeat CT scan tomorrow of abdomen and the retroperitoneal space -Goal is to eventually transfer to long-term acute care facility. SUBJECTIVE: no new aches pains, fever symptoms, dyspnea, nausea or other abnormal symptoms Remains very weak Her notes that she remains fairly lethargic overall with significant fluctuations in alertness He states that when she is more alert she is actually quite oriented more talkative she is starting to eat slightly better and got 2 cans of Nepro in along with some solid food OBJECTIVE Vitals reviewed: Stable without fever Exam: Currently fairly lethargic but awake. Her hypophonia is significant and hard to hear what she is saying today Skin warm and dry, pale Respirations not labored lungs very diminished Heart regular Abdomen soft with bowel sounds present not tender; to abdominal wounds remain open 1 fairly deep with dressing changes and dressing with a fair bit of fluid today Nando-Mahan drain remains in place and still draining some blood Mild peripheral edema IV access site looks good Laboratory data: White blood cell count slightly higher than yesterday but changed little Objective: Vital Signs Temp Pulse Resp BP Pulse Ox 37.1 C 97 18 143/75 H 94 02/25/17 08:00 02/25/17 08:00 02/25/17 08:00 02/25/17 08:00 02/25/17 08:00 Microbiology 02/21/17 16:04 Gram Stain - Final Peritoneal Fluid - Aspirate 02/23/17 12:00 Urine Culture - Final Urine,Catheterized [facility] Laboratory Results 02/25/17 05:08 02/23/17 04:45 02/24/17 02/25/17 02/26/17 06:59 06:59 06:59 Intake Total 325 450 Output Total 661 245 Balance -336 205 PT 16.8 SEC (12.0-15.0) H 02/21/17 08:45 INR 1.36 (0.83-1.16) H 02/21/17 08:45 ICD10 Worksheet Patient Problems: Problems Problem Status Onset Atrial fibrillation Acute Diverticulitis Acute MRSA (methicillin resistant Staphylococcus aureus) Acute ~02/08/17
[2017-02-25] MEDS ORDERED: HEPARIN 50,000 UNIT/10 ML VIAL DIAL ONE (15:57)
--- NOTE | 2017-02-25 17:31 | PCMIDPN ---
Assessment/Plan: Assessment: Leukocytosis-patient still without fever. WBC and neutrophil count basically indistinguishable over the last 72 hours. No clear evidence of infection at this point continue to monitor. Plan: 1) continue to follow clinical course. Subjective: Patient remains in a somewhat depressed mood. States that she is tired. Otherwise no new complaint. Objective: No antibiotics. Vital Signs Temp Pulse Resp BP Pulse Ox 37.2 C 95 20 120/58 L 94 02/25/17 16:00 02/25/17 16:00 02/25/17 16:00 02/25/17 16:00 02/25/17 16:00 Microbiology 02/21/17 16:04 Gram Stain - Final Peritoneal Fluid - Aspirate 02/23/17 12:00 Urine Culture - Final Urine,Catheterized [facility] Laboratory Results 02/25/17 05:08 02/23/17 04:45 02/24/17 02/25/17 02/26/17 05:59 05:59 05:59 Intake Total 325 450 Output Total 661 245 Balance -336 205 - Physical Exam General Appearance: WD/WN, alert, no apparent distress, non-toxic Respiratory: lungs clear, normal breath sounds, No respiratory distress Cardiac/Chest: regular rate, rhythm, No tachycardia Skin: normal color, warm/dry, No rash ICD10 Worksheet Patient Problems: Problems Problem Status Onset Atrial fibrillation Acute Diverticulitis Acute MRSA (methicillin resistant Staphylococcus aureus) Acute ~02/08/17
[2017-02-25] MEDS: MELATONIN 3 MG TAB PO SCH (20:24)
[2017-02-25] MEDS: PATCH REMOVAL 1 EA PATCH TD SCH (20:35)
[2017-02-26 04:39] LABS: ADD DIFF? YES; ADD MORPH? NO; ADD SCAN? NO; ATYPICAL LYMPHOCYTE FLAG 10 (0-99); FRAGMENT RBC FLAG 0 (0-99); HEMATOCRIT 28.1 % (38.0-47.0); HEMOGLOBIN 8.8 g/dL (12.6-16.3); LEFT SHIFT FLG 20 (0-99); LIPEMIA HEMOLYSIS FLAG 80 (0-99); MEAN CELL HEMOGLOBIN CONCENTR. 31.3 g/dL (32.4-36.7); MEAN CELL VOLUME 98.9 fL (81.5-99.8); MEAN PLATELET VOLUME 9.9 fL (8.7-11.7); PLATELET CLUMPS FLAG 10 (0-99); PLATELET COUNT 134 10^3/uL (150-400); RED BLOOD CELL COUNT 2.84 10^6/uL (4.18-5.33); RED CELL DISTRIBUTION WIDTH 19.5 % (11.5-15.2)
[2017-02-26] MEDS: HYDROmorphONE/DILAUDID 2 MG TAB PO PRN (04:44)
[2017-02-26 04:54] LABS: ALBUMIN 2.5 g/dL (3.5-5.0); ANION GAP 9 mEq/L (8-16); CALCIUM 9.8 mg/dL (8.5-10.4); CARBON DIOXIDE 27 mEq/l (22-31); CHLORIDE 99 mEq/L (97-110); CREATININE 1.7 mg/dL (0.6-1.0); GLOMERULAR FILTRATION RATE 30; GLUCOSE 101 mg/dL (70-100); POTASSIUM 3.5 mEq/L (3.5-5.2); SODIUM 135 mEq/L (134-144)
[2017-02-26 05:08] LABS: PLATELET ESTIMATE DECREASED (ADEQ)
[2017-02-26 05:09] LABS: MACROCYTES 1+; MICROCYTES 1+; POLYCHROMASIA 1+
[2017-02-26] MEDS: HEPARIN 5,000 UNIT/0.5 ML SYR SC SCH ×2 (05:55→22:22)
[2017-02-26] MEDS: MIDODRINE HCL 5 MG TAB PO SCH ×3 (09:27→16:39)
[2017-02-26] MEDS: METOPROLOL TARTRATE 25 MG TAB PO SCH ×2 (09:28→22:21)
[2017-02-26] MEDS: AMIODARONE HCL 200 MG TAB PO SCH (09:29)
[2017-02-26] MEDS: LIDOCAINE 5% 1 EA PATCH TD SCH (09:29)
[2017-02-26] MEDS: FAMOTIDINE 20 MG TAB PO SCH (09:29)
--- NOTE | 2017-02-26 10:44 | SOAPPROG ---
SOAP Progress Note Assessment/Plan: Assessment/Plan: NANCY: Pt likely has developed ATN in setting of large retroperitoneal bleed with significant drop in Hgb as well as cardiac arrest. She also has R atrophic kidney at baseline but Cr prior to arrest 1.1. She is now on intermittent HD, still with poor UOP. - Next HD tomorrow, doing HD on a TTS schedule for now. - Will continue to monitor for renal recovery. Hypotension: much improved. midodrine down to 2.5mg TID, will continue to wean down as tolerated. Anemia: Hgb stable at 8.8, will continue to monitor. Subjective: No acute events overnight. Pt resting this am, notes that she is working with PT and getting a bit stronger, still not eating that well but drinking Nepro. Objective: Vital Signs Temp Pulse Resp BP Pulse Ox 36.6 C 102 H 16 103/56 L 90 L 02/26/17 08:28 02/26/17 08:28 02/26/17 08:28 02/26/17 08:28 02/26/17 08:28 Microbiology 02/21/17 16:04 Gram Stain - Final Peritoneal Fluid - Aspirate 02/23/17 12:00 Urine Culture - Final Urine,Catheterized [facility] Laboratory Results 02/26/17 04:30 02/26/17 04:30 02/25/17 02/26/17 02/27/17 05:59 05:59 05:59 Intake Total 450 240 Output Total 245 275 230 Balance 205 -35 -230 PT 16.8 SEC (12.0-15.0) H 02/21/17 08:45 INR 1.36 (0.83-1.16) H 02/21/17 08:45 General: somnolent but easily arousable, no acute distress Eyes; EOMI, PERRL OP: Clear CV: RRR Resp: CTAB, nonlabored respirations Abd: Soft, nondistended Ext: trace edema BLE Neuro: CN II-XII Grossly intact, no asterixis Access: R IJ tunneled catheter ICD10 Worksheet Patient Problems: Problems Problem Status Onset Atrial fibrillation Acute Diverticulitis Acute MRSA (methicillin resistant Staphylococcus aureus) Acute ~02/08/17
--- NOTE | 2017-02-26 15:18 | PCMIDPN ---
Assessment/Plan: Assessment/Plan: * Polymicrobial peritonitis secondary to anastomotic leak status post washout: completed 3 week course of Zosyn on 01/28/2017. * Bacteroides bacteremia: Secondary to peritonitis and completed course of Zosyn as outlined above. * Leukocytosis: Agree likely multifactorial with retroperitoneal hematoma likely significant contributor. Plan continued observation been off antibiotic therapy. Hematoma cultures remain negative. 02/26/17 15:13 Subjective: Complains of feeling weak. Objective: Vital Signs Temp Pulse Resp BP Pulse Ox 36.6 C 102 H 16 103/56 L 90 L 02/26/17 08:28 02/26/17 08:28 02/26/17 08:28 02/26/17 08:28 02/26/17 08:28 Microbiology 02/21/17 16:04 Gram Stain - Final Peritoneal Fluid - Aspirate 02/23/17 12:00 Urine Culture - Final Urine,Catheterized Con[facility] Laboratory Results 02/26/17 04:30 02/26/17 04:30 02/25/17 02/26/17 02/27/17 05:59 05:59 05:59 Intake Total 450 240 Output Total 245 275 330 Balance 205 -35 -330 No antibiotic therapy Blood cultures 02/22/2017 no growth Peritoneal cultures from 02/21/2017 no growth - Physical Exam General Appearance: alert, no apparent distress EENT: No scleral icterus, No thrush Abdomen: non-tender, No distended Skin: other (Hemodialysis catheter without erythema or drainage) Neuro/Psych: confused (Mild) ICD10 Worksheet Patient Problems: Problems Problem Status Onset Atrial fibrillation Acute Diverticulitis Acute MRSA (methicillin resistant Staphylococcus aureus) Acute ~02/08/17
--- NOTE | 2017-02-26 18:03 | HOSPPROG ---
Hospitalist Progress Note Assessment/Plan: DIAGNOSES: # S/P SEPSIS DUE TO PERITIONITIS FROM ANASTAMOTIC LEAK, FOLLOWING LAP SURG FOR DIVERTICULAR DISEASE -bacteroides in blood cxs, suspect multibacterial bowel pathogens # ACUTE RESP FAILURE, REINTUBATION x 2 -currently doing well on NC O2 # S/P PEA CARDIAC ARREST, LIKELY CAUSED BY ANEMIA AND ACUTE RESPIRATORY INSUFFICIENCY # ACUTE ENCEPHALOPATHY due to above -continues slow improvement, but remains very lethargic, not very conversant , not eating well # ACUTE RENAL FAILURE due to above -continues on hemodialysis at this time but is starting to make some urine # SPONTANEOUS RETROPERITONEAL BLEED ON ANTICOAG / POST HEMORRHAGIC ANEMIA, S/P TRANSFUSION AND EMBOLIZATION OF SEVERAL VESSELS IN INTERVENTIONAL RADIOLOGY -FRANK drain in place still with modest amount of blood in drain which appears probably old # ACUTE ANOXIC HEPATIC INJURY -continues to slowly resolve # A FIB, RAPID V RATE - WILL NEED TO BE OFF ANTICOAG DUE TO HEMORRHAGE # S/P LLL PNEUMONIA, stenotrophomonas from sputum cultures # SEVERE DECONDITIONING -continues work w PT and OT, does cooperate for this work # S/P LAPAROSCOPIC SURGERY FOR DIVERTICULAR DISEASE; S/P INTRAABDOMINAL HEMORRAGE AND SURGICAL EXPLORATION/CLOT EVACUATION PLANS: -continue nutritional support with nepro; at this point recommend NG tube to increase her calorie and protein intake - she does not want to do this yet but is too disoriented to really be making clear decision; is not here presently -Continue physical occupational therapy -Continue to observe for any signs of infection -OP OT -wound care -Repeat CT scan tomorrow of abdomen and the retroperitoneal space -Goal is to eventually transfer to long-term acute care facility. SUBJECTIVE: some mild abd ache Remains very weak oral intake notably less today than last two days OBJECTIVE Vitals reviewed: Stable without fever Exam: Currently fairly lethargic but awake. Her hypophonia is significant and hard to hear what she is saying today Skin warm and dry, pale Respirations not labored lungs very diminished Heart regular Abdomen soft with bowel sounds present not tender; to abdominal wounds remain open 1 fairly deep with dressing changes and dressing with a fair bit of fluid today Nando-Mahan drain remains in place and still draining some blood Mild peripheral edema IV access site looks good Laboratory data: White blood cell count slightly higher than yesterday but changed little Objective: Vital Signs Temp Pulse Resp BP Pulse Ox 36.5 C 89 14 128/75 H 94 06/09/17 15:58 02/26/17 15:58 02/26/17 15:58 02/26/17 15:58 02/26/17 15:58 Microbiology 02/21/17 16:04 Gram Stain - Final Peritoneal Fluid - Aspirate Laboratory Results 02/26/17 04:30 02/26/17 04:30 02/25/17 02/26/17 02/27/17 06:59 06:59 06:59 Intake Total 450 240 Output Total 245 505 100 Balance 205 -265 -100 PT 16.8 SEC (12.0-15.0) H 02/21/17 08:45 INR 1.36 (0.83-1.16) H 02/21/17 08:45 ICD10 Worksheet Patient Problems: Problems Problem Status Onset Atrial fibrillation Acute Diverticulitis Acute MRSA (methicillin resistant Staphylococcus aureus) Acute ~02/08/17
--- NOTE | 2017-02-26 18:38 | SOAPPROG ---
SOAP Progress Note Assessment/Plan: Assessment: s/p drainage retroperitoneal hematoma/CT reviewed-no evidence of abscess/residual hematoma not in direct contact with drain/drain removed by Dr. Hahn leukocytocis persists NANCY on dialysis persistant poor caloric intake, discussed possible need for feeding tube (?PEG) Plan:Hospitalist and ID consults appreciated Continue dialysis, wound care, PT/OT monitor off antibiotics Flakita Weeks MD, FACS 02/18/17 08:09 02/19/17 09:48 02/20/17 10:02 02/21/17 07:24 02/23/17 07:41 02/24/17 15:46 02/25/17 06:27 02/26/17 18:35 Subjective: sitting up/eating a few bites of Mac and Cheese Objective: Vital Signs Temp Pulse Resp BP Pulse Ox 36.5 C 89 14 128/75 H 94 02/26/17 15:58 02/26/17 15:58 02/26/17 15:58 02/26/17 15:58 02/26/17 15:58 Microbiology 02/21/17 16:04 Gram Stain - Final Peritoneal Fluid - Aspirate Laboratory Results 02/26/17 04:30 02/26/17 04:30 02/25/17 02/26/17 02/27/17 05:59 05:59 05:59 Intake Total 450 240 500 Output Total 245 275 355 Balance 205 -35 145 PT 16.8 SEC (12.0-15.0) H 02/21/17 08:45 INR 1.36 (0.83-1.16) H 02/21/17 08:45 Physical Exam - Physical Exam General Appearance: mild distress Skin: jaundice Neuro/Psych: alert, oriented x 3 (mild cognitive dysfunction), depressed affect ICD10 Worksheet Patient Problems: Problems Problem Status Onset Atrial fibrillation Acute Diverticulitis Acute MRSA (methicillin resistant Staphylococcus aureus) Acute ~02/08/17
[2017-02-26] MEDS: MELATONIN 3 MG TAB PO SCH (22:20)
[2017-02-26] MEDS: diphenhydrAMINE 25 MG CAP PO PRN (22:22)
[2017-02-26] MEDS: PATCH REMOVAL 1 EA PATCH TD SCH (22:30)
[2017-02-27] MEDS: HEPARIN 5,000 UNIT/0.5 ML SYR SC SCH (05:57)
[2017-02-27 06:12] LABS: ADD DIFF? YES; ADD MORPH? NO; ADD SCAN? NO; ATYPICAL LYMPHOCYTE FLAG 10 (0-99); FRAGMENT RBC FLAG 0 (0-99); HEMOGLOBIN 9.2 g/dL (12.6-16.3); LEFT SHIFT FLG 10 (0-99); LIPEMIA HEMOLYSIS FLAG 80 (0-99); MEAN CELL HEMOGLOBIN 31.1 pg (27.9-34.1); MEAN CELL HEMOGLOBIN CONCENTR. 31.7 g/dL (32.4-36.7); PLATELET CLUMPS FLAG 10 (0-99); PLATELET COUNT 141 10^3/uL (150-400); RED BLOOD CELL COUNT 2.96 10^6/uL (4.18-5.33); RED CELL DISTRIBUTION WIDTH 19.1 % (11.5-15.2)
[2017-02-27 06:29] LABS: ALBUMIN 2.7 g/dL (3.5-5.0); ANION GAP 8 mEq/L (8-16); CALCIUM 10.4 mg/dL (8.5-10.4); CARBON DIOXIDE 26 mEq/l (22-31); CHLORIDE 101 mEq/L (97-110); CREATININE 2.3 mg/dL (0.6-1.0); GLOMERULAR FILTRATION RATE 21; GLUCOSE 94 mg/dL (70-100); POTASSIUM 3.5 mEq/L (3.5-5.2); SODIUM 135 mEq/L (134-144)
[2017-02-27 07:01] LABS: MICROCYTES 1+; PLATELET ESTIMATE DECREASED (ADEQ); POLYCHROMASIA 1+
[2017-02-27] MEDS: METOPROLOL TARTRATE 25 MG TAB PO SCH ×2 (09:19→20:52)
[2017-02-27] MEDS: LIDOCAINE 5% 1 EA PATCH TD SCH (09:19)
[2017-02-27] MEDS: FAMOTIDINE 20 MG TAB PO SCH (09:19)
[2017-02-27] MEDS: AMIODARONE HCL 200 MG TAB PO SCH (09:20)
[2017-02-27] MEDS: MIDODRINE HCL 5 MG TAB PO SCH ×3 (09:20→17:02)
--- NOTE | 2017-02-27 09:29 | SOAPPROG ---
SOAP Progress Note Assessment/Plan: Assessment: s/p drainage retroperitoneal hematoma/CT reviewed-no evidence of abscess/residual hematoma not in direct contact with drain/drain removed by Dr. Hahn leukocytocis persists NANCY on dialysis persistant poor caloric intake, discussed need for feeding tube/GI consult requested from Dr. Ford Plan:Hospitalist and ID consults appreciated Continue dialysis, wound care, PT/OT monitor off antibiotics PEG vs. Russ Weeks MD, FACS 02/18/17 08:09 02/19/17 09:48 02/20/17 10:02 02/21/17 07:24 02/23/17 07:41 02/24/17 15:46 02/25/17 06:27 02/26/17 18:35 02/27/17 09:35 Subjective: resting comfortably/remains extremely weak with poor oral intake Patient's daughter at bedside Objective: Vital Signs Temp Pulse Resp BP Pulse Ox 36.5 C 98 16 135/68 H 96 02/27/17 09:00 02/27/17 09:00 02/27/17 09:00 02/27/17 09:00 02/27/17 09:00 Microbiology 02/21/17 16:04 Gram Stain - Final Peritoneal Fluid - Aspirate Laboratory Results 02/27/17 06:00 02/27/17 06:00 02/26/17 02/27/17 02/28/17 05:59 05:59 05:59 Intake Total 240 600 Output Total 275 355 Balance -35 245 PT 16.8 SEC (12.0-15.0) H 02/21/17 08:45 INR 1.36 (0.83-1.16) H 02/21/17 08:45 Physical Exam - Physical Exam General Appearance: mild distress Cardiac/Chest: regular rate, rhythm Abdomen: non-tender, soft Neuro/Psych: alert, depressed affect ICD10 Worksheet Patient Problems: Problems Problem Status Onset Atrial fibrillation Acute Diverticulitis Acute MRSA (methicillin resistant Staphylococcus aureus) Acute ~02/08/17
[2017-02-27] MEDS ORDERED: ceFAZolin 1 GM VIAL IVP ONE (10:09)
--- NOTE | 2017-02-27 10:13 | SOAPPROG ---
SOAP Progress Note Assessment/Plan: Assessment:Asked to place PEG tube. Patient assessed. I spoke with family. Will proceed with placement at 0800 tomorrow AM. Plan: 02/27/17 10:13 Objective: Vital Signs Temp Pulse Resp BP Pulse Ox 36.5 C 98 16 135/68 H 96 02/27/17 09:00 02/27/17 09:00 02/27/17 09:00 02/27/17 09:00 02/27/17 09:00 Microbiology 02/21/17 16:04 Gram Stain - Final Peritoneal Fluid - Aspirate Laboratory Results 02/27/17 06:00 02/27/17 06:00 02/26/17 02/27/17 02/28/17 05:59 05:59 05:59 Intake Total 240 600 Output Total 275 355 Balance -35 245 PT 16.8 SEC (12.0-15.0) H 02/21/17 08:45 INR 1.36 (0.83-1.16) H 02/21/17 08:45 ICD10 Worksheet Patient Problems: Problems Problem Status Onset Atrial fibrillation Acute Diverticulitis Acute MRSA (methicillin resistant Staphylococcus aureus) Acute ~02/08/17
--- NOTE | 2017-02-27 12:00 | SOAPPROG ---
SOAP Progress Note Assessment/Plan: Assessment: 1. NANCY - Likely ATN in setting of large retroperitoneal bleed with significant drop in Hgb as well as cardiac arrest. She also has R atrophic kidney at baseline but Cr prior to arrest 1.1. She is now on intermittent HD, still oliguric UOP. -Next HD today -Continue HD on a TTS schedule for now. -Will continue to monitor for renal recovery. No UOP today but urine seen in bladder on scan, pt will get another chance to go on bed rangel and if unable, will need feldman 2. Hypotension - -Much improved. midodrine down to 2.5mg TID, will continue to wean down as tolerated. 3. Anemia - -Hgb stable at ~9, will continue to monitor. 4. Nutrition - -Swallowing poorly, risk for aspiration -To get PEG tube tomorrow Plan: 02/27/17 12:03 02/27/17 12:04 Subjective: No c/o. Daughter at bedside assisting patient with drinking water but patient struggling and coughing some. Objective: Vital Signs Temp Pulse Resp BP Pulse Ox 36.5 C 98 16 135/68 H 96 02/27/17 09:00 02/27/17 09:00 02/27/17 09:00 02/27/17 09:00 02/27/17 09:00 Microbiology 02/21/17 16:04 Gram Stain - Final Peritoneal Fluid - Aspirate Laboratory Results 02/27/17 06:00 02/27/17 06:00 02/26/17 02/27/17 02/28/17 05:59 05:59 05:59 Intake Total 240 600 Output Total 275 355 Balance -35 245 PT 16.8 SEC (12.0-15.0) H 02/21/17 08:45 INR 1.36 (0.83-1.16) H 02/21/17 08:45 Physical Exam - Physical Exam General Appearance: WD/WN, other (awake but poorly responsive) Respiratory: lungs clear Cardiac/Chest: regular rate, rhythm Abdomen: non-tender, other (ostomy in place with liquid stool) Extremities: swelling (trace b/l LE) ICD10 Worksheet Patient Problems: Problems Problem Status Onset Atrial fibrillation Acute Diverticulitis Acute MRSA (methicillin resistant Staphylococcus aureus) Acute ~02/08/17
--- NOTE | 2017-02-27 13:50 | HOSPPROG ---
Hospitalist Progress Note Assessment/Plan: 72 y/o female new to my care 02/27/17 # S/P SEPSIS DUE TO PERITIONITIS FROM ANASTAMOTIC LEAK, FOLLOWING LAP SURG FOR DIVERTICULAR DISEASE -bacteroides in blood cxs, suspect multibacterial bowel pathogens # ACUTE RESP FAILURE, REINTUBATION x 2 -currently doing well on [place] O2 # S/P PEA CARDIAC ARREST, LIKELY CAUSED BY ANEMIA AND ACUTE RESPIRATORY INSUFFICIENCY # ACUTE ENCEPHALOPATHY due to above -continues slow improvement, but remains very lethargic, not very conversant , not eating well # ACUTE RENAL FAILURE due to above -continues on hemodialysis at this time but is starting to make some urine -place feldman catheter due to urinary retnetion # SPONTANEOUS RETROPERITONEAL BLEED ON ANTICOAG / POST HEMORRHAGIC ANEMIA, S/P TRANSFUSION AND EMBOLIZATION OF SEVERAL VESSELS IN INTERVENTIONAL RADIOLOGY -FRANK drain in place still with modest amount of blood in drain which appears probably old # ACUTE ANOXIC HEPATIC INJURY -continues to slowly resolve # A FIB, RAPID V RATE - WILL NEED TO BE OFF ANTICOAG DUE TO HEMORRHAGE # S/P LLL PNEUMONIA, stenotrophomonas from sputum cultures # SEVERE DECONDITIONING -continues work w PT and OT, does cooperate for this work # S/P LAPAROSCOPIC SURGERY FOR DIVERTICULAR DISEASE; S/P INTRAABDOMINAL HEMORRAGE AND SURGICAL EXPLORATION/CLOT EVACUATION PLANS: -continue nutritional support with nepro; she is not eating; peg tube has been recommended -Continue physical occupational therapy -Continue to observe for any signs of infection -OP OT -wound care -Repeat CT scan abdomen and the retroperitoneal space -Place feldman -Goal is to eventually transfer to long-term acute care facility. Subjective: no new complaints Objective: Vital Signs Temp Pulse Resp BP Pulse Ox 36.5 C 98 16 135/68 H 96 02/27/17 09:00 02/27/17 09:00 02/27/17 09:00 02/27/17 09:00 02/27/17 09:00 Microbiology 02/21/17 16:04 Gram Stain - Final Peritoneal Fluid - Aspirate Laboratory Results 02/27/17 06:00 02/27/17 06:00 02/26/17 02/27/17 02/28/17 05:59 05:59 05:59 Intake Total 240 600 Output Total 275 355 525 Balance -35 245 -525 PT 16.8 SEC (12.0-15.0) H 02/21/17 08:45 INR 1.36 (0.83-1.16) H 02/21/17 08:45 - Physical Exam Constitutional: chronically ill appearing Cardiovascular: regular rate and rhythym, no murmur, rub, or gallop Respiratory: no respiratory distress, no rales or rhonchi, clear to auscultation Gastrointestinal: distension, No tenderness, No guarding, No rebound ICD10 Worksheet Patient Problems: Problems Problem Status Onset MRSA (methicillin resistant Staphylococcus aureus) Acute ~02/08/17 Atrial fibrillation Acute Diverticulitis Acute
[2017-02-27] MEDS: diphenhydrAMINE 25 MG CAP PO PRN (13:55)
[2017-02-27] MEDS ORDERED: HEPARIN 50,000 UNIT/10 ML VIAL ONE (20:00)
[2017-02-27] MEDS: MELATONIN 3 MG TAB PO SCH (20:52)
[2017-02-28] MEDS: PATCH REMOVAL 1 EA PATCH TD SCH ×2 (00:16→21:35)
[2017-02-28 05:30] LABS: % IMMATURE GRANULYOCYTES 1.5 % (0.0-1.1); ABSOLUTE IMMATURE GRANULOCYTES 0.27 10^3/uL (0.00-0.10); ADD DIFF? NO; ADD MORPH? NO; ADD SCAN? NO; ATYPICAL LYMPHOCYTE FLAG 10 (0-99); FRAGMENT RBC FLAG 0 (0-99); HEMATOCRIT 29.4 % (38.0-47.0); HEMOGLOBIN 9.3 g/dL (12.6-16.3); LEFT SHIFT FLG 20 (0-99); LIPEMIA HEMOLYSIS FLAG 80 (0-99); MEAN CELL HEMOGLOBIN 31.4 pg (27.9-34.1); MEAN CELL HEMOGLOBIN CONCENTR. 31.6 g/dL (32.4-36.7); MEAN CELL VOLUME 99.3 fL (81.5-99.8); MEAN PLATELET VOLUME 10.2 fL (8.7-11.7); PLATELET CLUMPS FLAG 0 (0-99); PLATELET COUNT 124 10^3/uL (150-400); RED BLOOD CELL COUNT 2.96 10^6/uL (4.18-5.33); RED CELL DISTRIBUTION WIDTH 18.7 % (11.5-15.2)
[2017-02-28 05:43] LABS: ALBUMIN 2.7 g/dL (3.5-5.0); ANION GAP 9 mEq/L (8-16); CALCIUM 9.7 mg/dL (8.5-10.4); CARBON DIOXIDE 26 mEq/l (22-31); CHLORIDE 100 mEq/L (97-110); CREATININE 1.7 mg/dL (0.6-1.0); GLOMERULAR FILTRATION RATE 30; GLUCOSE 89 mg/dL (70-100); POTASSIUM 3.5 mEq/L (3.5-5.2); SODIUM 135 mEq/L (134-144)
[2017-02-28] MEDS ORDERED: PROPOFOL/EMULSION 500 MG/50 ML BOTTLE IV ONE (07:56)
--- NOTE | 2017-02-28 09:01 | SOAPPROG ---
SOAP Progress Note Assessment/Plan: Assessment:Asked to place PEG tube. Patient assessed. I spoke with family. Will proceed with placement at 0800 tomorrow AM. Plan: 02/27/17 10:13 02/28/17 09:00 EGD performed. NO abnormalities seen. Unable to transilluminate a site for PEG tube placement. Procedure terminated. Will need IR placement. DIscussed with family who is agreeable to that plan. Objective: Vital Signs Temp Pulse Resp BP Pulse Ox 36.7 C 86 18 123/63 H 93 02/27/17 22:51 02/27/17 22:51 02/27/17 22:51 02/27/17 22:51 02/27/17 22:51 Microbiology 02/22/17 13:25 Blood Culture - Final Blood 02/22/17 13:10 Blood Culture - Final Blood 02/21/17 16:04 Gram Stain - Final Peritoneal Fluid - Aspirate Laboratory Results 02/28/17 05:10 02/28/17 05:10 02/27/17 02/28/17 03/01/17 05:59 05:59 05:59 Intake Total 600 100 Output Total 355 6979 Balance 245 -1975 PT 16.8 SEC (12.0-15.0) H 02/21/17 08:45 INR 1.36 (0.83-1.16) H 02/21/17 08:45 ICD10 Worksheet Patient Problems: Problems Problem Status Onset Atrial fibrillation Acute Diverticulitis Acute MRSA (methicillin resistant Staphylococcus aureus) Acute ~02/08/17
--- NOTE | 2017-02-28 09:05 | SOAPPROG ---
SOAP Progress Note Assessment/Plan: Assessment: Stable, PEG tube unsuccessful. Cont wound care, f/u with IR. Subjective: PEG tube unable to be placed Objective: Vital Signs Temp Pulse Resp BP Pulse Ox 36.7 C 86 18 123/63 H 93 02/27/17 22:51 02/27/17 22:51 02/27/17 22:51 02/27/17 22:51 02/27/17 22:51 Microbiology 02/22/17 13:25 Blood Culture - Final Blood 02/22/17 13:10 Blood Culture - Final Blood 02/21/17 16:04 Gram Stain - Final Peritoneal Fluid - Aspirate Laboratory Results 02/28/17 05:10 02/28/17 05:10 02/27/17 02/28/17 03/01/17 05:59 05:59 05:59 Intake Total 600 100 Output Total 355 2075 Balance 245 -1975 PT 16.8 SEC (12.0-15.0) H 02/21/17 08:45 INR 1.36 (0.83-1.16) H 02/21/17 08:45 Sedated, NAD RRR Abd soft, N[employer] with some granulation, no erythema Ostomy functioning, viable ICD10 Worksheet Patient Problems: Problems Problem Status Onset Atrial fibrillation Acute Diverticulitis Acute MRSA (methicillin resistant Staphylococcus aureus) Acute ~02/08/17 - ICD10 Problem Qualifiers (1) Diverticulitis Qualifiers: Diverticulitis site: D Diverticulitis bleeding: D Diverticulitis complication: D
--- NOTE | 2017-02-28 09:44 | GPN ---
[f rep st] PROCEDURE NOTE PROCEDURE: Gastroscopy with aborted PEG tube placement. INDICATIONS: The patient is a 72-year-old female with prolonged hospitalization after complications from surgery who requires enteral nutritional support. PEG tube placement is requested. PROCEDURE IN DETAIL: After proper consent was obtained, patient was placed under IV general anesthe any due to her ASA class of 3. Video gastroscope was introduced through the mouth, down the esophagus, into the stomach, past the p ylorus, into to the duodenum. These structures appeared normal. Over the course of 25 minutes, attempts were made to transilluminate a satisfactory tract from the a bdominal wall to the gastric lumen. At no point did I ever see any transillumination. Patient is m oderately obese. The only area where I could see a good indentation from pushing from the outside w ith my fingers is in the right upper quadrant and may be where liver is present. Therefore I electe d to abort this procedure. At this point, instruments were removed. Patient tolerated procedure well, was returned to recovery in stable condition. RECOMMENDATIONS: The patient should have Interventional Radiology consultation for an imaging juan denisse placement of gastrostomy tube. If that is unsuccessful, then other option would be surgical sven cement. /[id number]/MODL
[2017-02-28] MEDS: LIDOCAINE 5% 1 EA PATCH TD SCH (09:52)
[2017-02-28] MEDS: METOPROLOL TARTRATE 25 MG TAB PO SCH ×2 (11:25→20:27)
[2017-02-28] MEDS: AMIODARONE HCL 200 MG TAB PO SCH (11:27)
[2017-02-28] MEDS: FAMOTIDINE 20 MG TAB PO SCH (11:28)
[2017-02-28] MEDS: MIDODRINE HCL 5 MG TAB PO SCH ×3 (11:28→17:29)
[2017-02-28] MEDS ORDERED: NS 1,000 ML IV SCH (12:30)
--- NOTE | 2017-02-28 13:59 | HOSPPROG ---
Hospitalist Progress Note Assessment/Plan: 72 y/o female new to my care 02/27/17 # S/P SEPSIS DUE TO PERITIONITIS FROM ANASTAMOTIC LEAK, FOLLOWING LAP SURG FOR DIVERTICULAR DISEASE -bacteroides in blood cxs, suspect multibacterial bowel pathogens s/p 3 weeks of IV Zosyn continue to monitor off abx # ACUTE RESP FAILURE, REINTUBATION x 2 -currently doing well on [place] O2 # S/P PEA CARDIAC ARREST, LIKELY CAUSED BY ANEMIA AND ACUTE RESPIRATORY INSUFFICIENCY # ACUTE ENCEPHALOPATHY due to above -continues slow improvement, but remains very lethargic, not very conversant , not eating well # ACUTE RENAL FAILURE due to above -continues on hemodialysis at this time but is starting to make some urine - feldman placed 02/27 due to urinary retnetion # SPONTANEOUS RETROPERITONEAL BLEED ON ANTICOAG / POST HEMORRHAGIC ANEMIA, S/P TRANSFUSION AND EMBOLIZATION OF SEVERAL VESSELS IN INTERVENTIONAL RADIOLOGY -FRANK drain in place still with modest amount of blood in drain which appears probably old # ACUTE HEPATITIS LIKELY DUE TO HYPOPERFUSION -continues to slowly resolve # A FIB, RAPID V RATE - WILL NEED TO BE OFF ANTICOAG DUE TO HEMORRHAGE # S/P LLL PNEUMONIA, stenotrophomonas from sputum cultures # SEVERE DECONDITIONING -continues work w PT and OT, does cooperate for this work # S/P LAPAROSCOPIC SURGERY FOR DIVERTICULAR DISEASE; S/P INTRAABDOMINAL HEMORRAGE AND SURGICAL EXPLORATION/CLOT EVACUATION PLANS: -continue nutritional support with nepro; she is not eating; peg tube has been recommended and will need to be placed by IR -Continue physical occupational therapy -Continue to observe for any signs of infection -OP OT -wound care -Repeat CT scan abdomen and the retroperitoneal space per surgery as indicated -Goal is to eventually transfer to long-term acute care facility. Subjective: continues to be confused. no other acute complaints Objective: Vital Signs Temp Pulse Resp BP Pulse Ox 36.9 C 102 H 18 102/58 L 93 02/28/17 12:44 02/28/17 12:44 02/28/17 12:44 02/28/17 12:44 02/28/17 12:44 Microbiology 02/22/17 13:25 Blood Culture - Final Blood 02/22/17 13:10 Blood Culture - Final Blood 02/21/17 16:04 Gram Stain - Final Peritoneal Fluid - Aspirate Laboratory Results 02/28/17 05:10 02/28/17 05:10 02/27/17 02/28/17 03/01/17 05:59 05:59 05:59 Intake Total 600 100 150 Output Total 355 2075 0 Balance 245 -1974 150 PT 16.8 SEC (12.0-15.0) H 02/21/17 08:45 INR 1.36 (0.83-1.16) H 02/21/17 08:45 - Physical Exam Constitutional: chronically ill appearing Cardiovascular: regular rate and rhythym, no murmur, rub, or gallop Respiratory: no respiratory distress, no rales or rhonchi, clear to auscultation Genitourinary: feldman in urethra ICD10 Worksheet Patient Problems: Problems Problem Status Onset MRSA (methicillin resistant Staphylococcus aureus) Acute ~02/08/17 Atrial fibrillation Acute Diverticulitis Acute
--- NOTE | 2017-02-28 17:37 | SOAPPROG ---
SOAP Progress Note Assessment/Plan: Assessment: 1. NANCY - Likely ATN in setting of large retroperitoneal bleed with significant drop in Hgb as well as cardiac arrest. She also has R atrophic kidney at baseline but Cr prior to arrest 1.1. She is now on intermittent HD, still oliguric UOP. -Had HD yesterday -Observe for any needs tomorrow but likely can continue HD on a TTS schedule for now. -Will continue to monitor for renal recovery. -Had high PVR yesterday so feldman placed with 650cc yielded over next few hours, however little UOP overnight -Adding NS IVF 75 cc/hr as intake is poor and will see if this stimulates UOP today but urine seen in bladder on scan, pt will get another chance to go on bed rangel and if unable, will need feldman 2. Hypotension - -Much improved. midodrine down to 2.5mg TID, will continue to wean down as tolerated. 3. Anemia - -Hgb stable at ~9, will continue to monitor. 4. Nutrition - -Swallowing poorly, risk for aspiration -PEG tube unable to be placed by EGD today, rec IR placement Plan: 02/28/17 17:37 02/28/17 17:38 Subjective: Sitting up in chair at bedside. More alert than yesterday. Objective: Vital Signs Temp Pulse Resp BP Pulse Ox 36.6 C 92 18 113/54 L 93 02/28/17 15:35 02/28/17 15:35 02/28/17 15:35 02/28/17 15:35 02/28/17 15:35 Microbiology 02/21/17 16:04 Gram Stain - Final Peritoneal Fluid - Aspirate 02/22/17 13:25 Blood Culture - Final Blood 02/22/17 13:10 Blood Culture - Final Blood Laboratory Results 02/28/17 05:10 02/28/17 05:10 02/27/17 02/28/17 03/01/17 05:59 05:59 05:59 Intake Total 600 100 150 Output Total 355 2075 0 Balance 245 -1975 150 PT 16.8 SEC (12.0-15.0) H 02/21/17 08:45 INR 1.36 (0.83-1.16) H 02/21/17 08:45 Physical Exam - Physical Exam General Appearance: other (awake, more responsive than yesterday with coherent speech) Respiratory: lungs clear Cardiac/Chest: regular rate, rhythm Abdomen: soft Extremities: swelling ICD10 Worksheet Patient Problems: Problems Problem Status Onset Atrial fibrillation Acute Diverticulitis Acute MRSA (methicillin resistant Staphylococcus aureus) Acute ~02/08/17
[2017-02-28] MEDS: MELATONIN 3 MG TAB PO SCH (20:28)
[2017-03-01 05:51] LABS: ABSOLUTE IMMATURE GRANULOCYTES 0.17 10^3/uL (0.00-0.10); ADD DIFF? NO; ADD MORPH? NO; ADD SCAN? NO; ATYPICAL LYMPHOCYTE FLAG 0 (0-99); FRAGMENT RBC FLAG 0 (0-99); HEMATOCRIT 26.3 % (38.0-47.0); HEMOGLOBIN 8.1 g/dL (12.6-16.3); LEFT SHIFT FLG 10 (0-99); LIPEMIA HEMOLYSIS FLAG 80 (0-99); MEAN CELL HEMOGLOBIN 31.3 pg (27.9-34.1); MEAN CELL HEMOGLOBIN CONCENTR. 30.8 g/dL (32.4-36.7); MEAN CELL VOLUME 101.5 fL (81.5-99.8); MEAN PLATELET VOLUME 9.8 fL (8.7-11.7); PLATELET CLUMPS FLAG 0 (0-99); PLATELET COUNT 111 10^3/uL (150-400); RED BLOOD CELL COUNT 2.59 10^6/uL (4.18-5.33); RED CELL DISTRIBUTION WIDTH 18.6 % (11.5-15.2)
[2017-03-01 06:05] LABS: ALBUMIN 2.1 g/dL (3.5-5.0); ANION GAP 8 mEq/L (8-16); CALCIUM 8.5 mg/dL (8.5-10.4); CARBON DIOXIDE 22 mEq/l (22-31); CHLORIDE 107 mEq/L (97-110); GLOMERULAR FILTRATION RATE 24; GLUCOSE 80 mg/dL (70-100); POTASSIUM 3.3 mEq/L (3.5-5.2); SODIUM 137 mEq/L (134-144)
[2017-03-01] MEDS ORDERED: LIDOCAINE 1% 300 MG/30 ML SDV ONE (09:19)
[2017-03-01] MEDS ORDERED: LIDOCAINE 2% JELLY 20 ML (UROJECT) ONE (09:19)
[2017-03-01] MEDS ORDERED: IOPAMIDOL (ISOVUE-300) 100 ML BTL ONE (09:19)
[2017-03-01] MEDS ORDERED: fentaNYL 100 MCG/2 ML INJ ONE (09:29)
[2017-03-01] MEDS ORDERED: GLUCAGON,HUMAN RECOMBINANT 1 MG VIAL ONE ×2 (09:29→10:23)
[2017-03-01] MEDS ORDERED: MIDAZOLAM 2 MG/2 ML VIAL ONE (09:30)
[2017-03-01] MEDS: MIDODRINE HCL 5 MG TAB PO SCH ×3 (09:44→16:49)
--- NOTE | 2017-03-01 11:01 | POSTOPPROG ---
Post Op Note Date of Operation: 03/01/17 Surgeon: Al Hernandez Anesthesia: IV Sedation Pre-op Diagnosis: Encephalopathy. Post-op Diagnosis: Same. Indication: Aspiration risk. Malnutrition. Procedure: Percutaneous gastrostomy. Findings: 20 F balloon gastrostomy tube in good position. Inf/Abcess present in the surg proc area at time of surgery?: No EBL: Minimal Complications: 0. Difficult placement because of obesity and hiatal hernia.
[2017-03-01] MEDS ORDERED: POTASSIUM Cl (KCl) 100 ML IV ONE (12:34)
[2017-03-01] MEDS: LIDOCAINE 5% 1 EA PATCH TD SCH (13:10)
[2017-03-01] MEDS: FAMOTIDINE 20 MG TAB PO SCH (13:10)
[2017-03-01] MEDS: METOPROLOL TARTRATE 25 MG TAB PO SCH ×2 (13:11→20:31)
[2017-03-01] MEDS: AMIODARONE HCL 200 MG TAB PO SCH (13:11)
--- NOTE | 2017-03-01 13:56 | SOAPPROG ---
SOAP Progress Note Assessment/Plan: Assessment: Stable, PEG in place. Poss off HD soon, start TF's. D/w patient and at length, questions answered. 03/01/17 13:54 Subjective: IR placement successful for PEG. Patient denies pain currently, notes some back pain with movement. Objective: Vital Signs Temp Pulse Resp BP Pulse Ox 36.7 C 99 16 114/59 L 100 03/01/17 08:12 03/01/17 13:11 03/01/17 12:10 03/01/17 13:11 03/01/17 12:10 Microbiology 02/21/17 16:04 Gram Stain - Final Peritoneal Fluid - Aspirate Anaerobic Culture - Final Laboratory Results 03/01/17 05:15 03/01/17 05:15 02/28/17 03/01/17 03/02/17 05:59 05:59 05:59 Intake Total 100 2620 Output Total 2075 250 Balance -1975 2370 PT 16.8 SEC (12.0-15.0) H 02/21/17 08:45 INR 1.36 (0.83-1.16) H 02/21/17 08:45 Alert, NAD Sl tachy but reg Abd soft, NTTP Inc without erythema ICD10 Worksheet Patient Problems: Problems Problem Status Onset Atrial fibrillation Acute Diverticulitis Acute MRSA (methicillin resistant Staphylococcus aureus) Acute ~02/08/17 - ICD10 Problem Qualifiers (1) Diverticulitis Qualifiers: Diverticulitis site: D Diverticulitis bleeding: D Diverticulitis complication: D
--- NOTE | 2017-03-01 16:55 | HOSPPROG ---
Hospitalist Progress Note Assessment/Plan: 72 y/o female new to my care 02/27/17 Peg tube placed by IR 03/01 # S/P SEPSIS DUE TO PERITIONITIS FROM ANASTAMOTIC LEAK, FOLLOWING LAP SURG FOR DIVERTICULAR DISEASE -bacteroides in blood cxs, suspect multibacterial bowel pathogens s/p 3 weeks of IV Zosyn continue to monitor off abx # ACUTE RESP FAILURE, REINTUBATION x 2 -currently doing well on NC O2 # S/P PEA CARDIAC ARREST, LIKELY CAUSED BY ANEMIA AND ACUTE RESPIRATORY INSUFFICIENCY # ACUTE ENCEPHALOPATHY due to above -continues slow improvement, but remains very lethargic, not very conversant , not eating well # ACUTE RENAL FAILURE due to above -continues on hemodialysis at this time but is starting to make some urine - feldman placed 02/27 due to urinary retnetion # SPONTANEOUS RETROPERITONEAL BLEED ON ANTICOAG / POST HEMORRHAGIC ANEMIA, S/P TRANSFUSION AND EMBOLIZATION OF SEVERAL VESSELS IN INTERVENTIONAL RADIOLOGY -FRANK drain in place still with modest amount of blood in drain which appears probably old # ACUTE HEPATITIS LIKELY DUE TO HYPOPERFUSION -continues to slowly resolve # A FIB, RAPID V RATE - WILL NEED TO BE OFF ANTICOAG DUE TO HEMORRHAGE # S/P LLL PNEUMONIA, stenotrophomonas from sputum cultures # SEVERE DECONDITIONING -continues work w PT and OT, does cooperate for this work # S/P LAPAROSCOPIC SURGERY FOR DIVERTICULAR DISEASE; S/P INTRAABDOMINAL HEMORRAGE AND SURGICAL EXPLORATION/CLOT EVACUATION PLANS: -continue nutritional support with nepro; she is not eating; peg tube has been recommended and will need to be placed by IR -Continue physical occupational therapy -Continue to observe for any signs of infection -OP OT -wound care -Repeat CT scan abdomen and the retroperitoneal space per surgery as indicated -Goal is to eventually transfer to long-term acute care facility. Subjective: improved energy level today. no fevers or chills. not making much urine Objective: Vital Signs Temp Pulse Resp BP Pulse Ox 36.8 C 87 16 107/75 100 03/01/17 15:40 03/01/17 15:40 03/01/17 15:40 03/01/17 15:40 03/01/17 15:40 Microbiology 02/21/17 16:04 Gram Stain - Final Peritoneal Fluid - Aspirate Anaerobic Culture - Final Laboratory Results 03/01/17 05:15 03/01/17 05:15 02/28/17 03/01/17 03/02/17 05:59 05:59 05:59 Intake Total 100 2620 350 Output Total 2075 250 325 Balance -1974 2370 25 PT 16.8 SEC (12.0-15.0) H 02/21/17 08:45 INR 1.36 (0.83-1.16) H 02/21/17 08:45 - Physical Exam Constitutional: chronically ill appearing Cardiovascular: regular rate and rhythym, no murmur, rub, or gallop Gastrointestinal: normoactive bowel sounds, soft, non-tender abdomen, no palpable masses, distension, No guarding, No rebound Neurologic: AAOx3 ICD10 Worksheet Patient Problems: Problems Problem Status Onset MRSA (methicillin resistant Staphylococcus aureus) Acute ~02/08/17 Atrial fibrillation Acute Diverticulitis Acute
[2017-03-01] MEDS: MELATONIN 3 MG TAB PO SCH (20:32)
[2017-03-01] MEDS: HYDROmorphONE/DILAUDID 2 MG TAB PO PRN (20:32)
[2017-03-01] MEDS: PATCH REMOVAL 1 EA PATCH TD SCH (20:37)
[2017-03-02] MEDS: HEPARIN 5,000 UNIT/0.5 ML SYR SC SCH ×3 (04:39→21:15)
[2017-03-02] MEDS: HYDROmorphONE/DILAUDID 2 MG TAB PO PRN ×2 (04:47→13:22)
[2017-03-02 05:42] LABS: % IMMATURE GRANULYOCYTES 1.3 % (0.0-1.1); ABSOLUTE IMMATURE GRANULOCYTES 0.24 10^3/uL (0.00-0.10); ADD DIFF? NO; ADD MORPH? NO; ADD SCAN? NO; ATYPICAL LYMPHOCYTE FLAG 0 (0-99); FRAGMENT RBC FLAG 0 (0-99); HEMATOCRIT 27.6 % (38.0-47.0); HEMOGLOBIN 8.7 g/dL (12.6-16.3); LEFT SHIFT FLG 20 (0-99); LIPEMIA HEMOLYSIS FLAG 80 (0-99); MEAN CELL HEMOGLOBIN 31.3 pg (27.9-34.1); MEAN CELL HEMOGLOBIN CONCENTR. 31.5 g/dL (32.4-36.7); MEAN CELL VOLUME 99.3 fL (81.5-99.8); MEAN PLATELET VOLUME 10.2 fL (8.7-11.7); PLATELET CLUMPS FLAG 20 (0-99); PLATELET COUNT 132 10^3/uL (150-400); RED BLOOD CELL COUNT 2.78 10^6/uL (4.18-5.33); RED CELL DISTRIBUTION WIDTH 18.2 % (11.5-15.2)
[2017-03-02 05:49] LABS: ALBUMIN 2.4 g/dL (3.5-5.0); ANION GAP 10 mEq/L (8-16); CALCIUM 9.5 mg/dL (8.5-10.4); CARBON DIOXIDE 22 mEq/l (22-31); CHLORIDE 104 mEq/L (97-110); CREATININE 2.6 mg/dL (0.6-1.0); GLOMERULAR FILTRATION RATE 18; GLUCOSE 81 mg/dL (70-100); POTASSIUM 3.9 mEq/L (3.5-5.2); SODIUM 136 mEq/L (134-144)
[2017-03-02] MEDS: diphenhydrAMINE 25 MG CAP PO PRN ×2 (07:46→22:53)
[2017-03-02] MEDS: MIDODRINE HCL 5 MG TAB PO SCH ×3 (09:23→16:42)
[2017-03-02] MEDS: FAMOTIDINE 20 MG TAB PO SCH (09:25)
[2017-03-02] MEDS: AMIODARONE HCL 200 MG TAB PO SCH (09:25)
[2017-03-02] MEDS: LIDOCAINE 5% 1 EA PATCH TD SCH (09:27)
--- NOTE | 2017-03-02 11:10 | SOAPPROG ---
SOAP Progress Note Assessment/Plan: Assessment: 1. Oliguric NANCY Still oliguric. HD today, on TTS schedule 2. Anemia Hg stable, follow. 3. Deconditioning/Nutrition FT placed yesterday, getting tube feeds started today. Subjective: Doing ok today Objective: Vital Signs Temp Pulse Resp BP Pulse Ox 36.9 C 94 16 96/61 L 90 L 03/02/17 08:23 03/02/17 08:23 03/02/17 08:23 03/02/17 08:23 03/02/17 08:23 Microbiology 02/21/17 16:04 Gram Stain - Final Peritoneal Fluid - Aspirate Anaerobic Culture - Final Laboratory Results 03/02/17 05:10 03/02/17 05:10 03/01/17 03/02/17 03/03/17 05:59 05:59 05:59 Intake Total 2620 450 Output Total 250 800 Balance 2370 -350 PT 16.8 SEC (12.0-15.0) H 02/21/17 08:45 INR 1.36 (0.83-1.16) H 02/21/17 08:45 Physical Exam - Physical Exam General Appearance: no apparent distress Extremities: other (some thigh ) ICD10 Worksheet Patient Problems: Problems Problem Status Onset Atrial fibrillation Acute Diverticulitis Acute MRSA (methicillin resistant Staphylococcus aureus) Acute ~02/08/17
--- NOTE | 2017-03-02 15:03 | HOSPPROG ---
Hospitalist Progress Note Assessment/Plan: 72 y/o female new to my care 02/27/17 Peg tube placed by IR 03/01 # S/P SEPSIS DUE TO PERITIONITIS FROM ANASTAMOTIC LEAK, FOLLOWING LAP SURG FOR DIVERTICULAR DISEASE -bacteroides in blood cxs, suspect multibacterial bowel pathogens s/p 3 weeks of IV Zosyn continue to monitor off abx # ACUTE RENAL FAILURE due to above still oliguric -continues on hemodialysis - feldman placed 02/27 due to urinary retention # ACUTE RESP FAILURE, REINTUBATION x 2 -currently doing well on NC O2 # S/P PEA CARDIAC ARREST, LIKELY CAUSED BY ANEMIA AND ACUTE RESPIRATORY INSUFFICIENCY # ACUTE ENCEPHALOPATHY due to above -continues slow improvement, but remains very lethargic, not very conversant , not eating well # SPONTANEOUS RETROPERITONEAL BLEED ON ANTICOAG / POST HEMORRHAGIC ANEMIA, S/P TRANSFUSION AND EMBOLIZATION OF SEVERAL VESSELS IN INTERVENTIONAL RADIOLOGY -FRANK drain in place still with modest amount of blood in drain which appears probably old # ACUTE HEPATITIS LIKELY DUE TO HYPOPERFUSION -continues to slowly resolve # A FIB, RAPID V RATE - WILL NEED TO BE OFF ANTICOAG DUE TO HEMORRHAGE # S/P LLL PNEUMONIA, stenotrophomonas from sputum cultures # SEVERE DECONDITIONING and malnutrition -continues work w PT and OT, does cooperate for this work - start tube feeds today # S/P LAPAROSCOPIC SURGERY FOR DIVERTICULAR DISEASE; S/P INTRAABDOMINAL HEMORRAGE AND SURGICAL EXPLORATION/CLOT EVACUATION Subjective: no new complaints Objective: Vital Signs Temp Pulse Resp BP Pulse Ox 36.9 C 99 16 118/65 90 L 03/02/17 08:23 03/02/17 11:34 03/02/17 11:34 03/02/17 11:34 03/02/17 11:34 Microbiology 02/21/17 16:04 Gram Stain - Final Peritoneal Fluid - Aspirate Anaerobic Culture - Final Laboratory Results 03/02/17 05:10 03/02/17 05:10 03/01/17 03/02/17 03/03/17 05:59 05:59 05:59 Intake Total 2620 450 Output Total 250 800 Balance 2370 -350 PT 16.8 SEC (12.0-15.0) H 02/21/17 08:45 INR 1.36 (0.83-1.16) H 02/21/17 08:45 - Physical Exam Constitutional: chronically ill appearing Cardiovascular: regular rate and rhythym, no murmur, rub, or gallop Respiratory: no respiratory distress, no rales or rhonchi, clear to auscultation , reduced air movement (bilat bases) Gastrointestinal: normoactive bowel sounds, soft, non-tender abdomen, no palpable masses, other (peg inplace), No guarding, No rebound Neurologic: AAOx3 ICD10 Worksheet Patient Problems: Problems Problem Status Onset MRSA (methicillin resistant Staphylococcus aureus) Acute ~02/08/17 Atrial fibrillation Acute Diverticulitis Acute
[2017-03-02] MEDS: METOPROLOL TARTRATE 25 MG TAB PO SCH ×2 (16:40→21:04)
[2017-03-02] MEDS ORDERED: HEPARIN 50,000 UNIT/10 ML VIAL ONE (17:18)
--- NOTE | 2017-03-02 18:14 | SOAPPROG ---
SOAP Progress Note Assessment/Plan: Assessment: Stable to improving. Cont TF advancement, PT. Poss transfer later this week. 03/01/17 13:54 03/02/17 18:12 Subjective: Patient c/o abd pain at site of PEG. No N/V. OOB to chair Objective: Vital Signs Temp Pulse Resp BP Pulse Ox 36.8 C 78 16 96/63 L 98 03/02/17 15:34 03/02/17 16:40 03/02/17 15:34 03/02/17 16:40 03/02/17 15:34 Microbiology 02/21/17 16:04 Gram Stain - Final Peritoneal Fluid - Aspirate Anaerobic Culture - Final Laboratory Results 03/02/17 05:10 03/02/17 05:10 03/01/17 03/02/17 03/03/17 05:59 05:59 05:59 Intake Total 2620 450 Output Total 250 800 Balance 2370 -350 PT 16.8 SEC (12.0-15.0) H 02/21/17 08:45 INR 1.36 (0.83-1.16) H 02/21/17 08:45 Alert, NAD Abd soft, NTTP Inc without erythema Ostomy viable PEG in place ICD10 Worksheet Patient Problems: Problems Problem Status Onset Atrial fibrillation Acute Diverticulitis Acute MRSA (methicillin resistant Staphylococcus aureus) Acute ~02/08/17 - ICD10 Problem Qualifiers (1) Diverticulitis Qualifiers: Diverticulitis site: D Diverticulitis bleeding: D Diverticulitis complication: D
[2017-03-02] MEDS: MELATONIN 3 MG TAB PO SCH (21:04)
[2017-03-03] MEDS: HYDROmorphONE/DILAUDID 2 MG TAB PO PRN ×4 (00:03→19:41)
[2017-03-03] MEDS: PATCH REMOVAL 1 EA PATCH TD SCH ×2 (00:13→21:48)
[2017-03-03] MEDS: HEPARIN 5,000 UNIT/0.5 ML SYR SC SCH ×3 (05:16→21:43)
[2017-03-03] MEDS: diphenhydrAMINE 25 MG CAP PO PRN (05:22)
[2017-03-03 05:27] LABS: % IMMATURE GRANULYOCYTES 0.9 % (0.0-1.1); ABSOLUTE IMMATURE GRANULOCYTES 0.17 10^3/uL (0.00-0.10); ADD DIFF? NO; ADD MORPH? NO; ADD SCAN? NO; ATYPICAL LYMPHOCYTE FLAG 0 (0-99); FRAGMENT RBC FLAG 0 (0-99); HEMATOCRIT 26.5 % (38.0-47.0); HEMOGLOBIN 8.4 g/dL (12.6-16.3); LEFT SHIFT FLG 20 (0-99); LIPEMIA HEMOLYSIS FLAG 80 (0-99); MEAN CELL HEMOGLOBIN 31.2 pg (27.9-34.1); MEAN CELL HEMOGLOBIN CONCENTR. 31.7 g/dL (32.4-36.7); MEAN CELL VOLUME 98.5 fL (81.5-99.8); PLATELET CLUMPS FLAG 20 (0-99); PLATELET COUNT 120 10^3/uL (150-400); RED BLOOD CELL COUNT 2.69 10^6/uL (4.18-5.33)
[2017-03-03 06:10] LABS: ALBUMIN 2.3 g/dL (3.5-5.0); ANION GAP 7 mEq/L (8-16); CALCIUM 9.8 mg/dL (8.5-10.4); CARBON DIOXIDE 26 mEq/l (22-31); CHLORIDE 101 mEq/L (97-110); CREATININE 1.9 mg/dL (0.6-1.0); GLOMERULAR FILTRATION RATE 26; GLUCOSE 128 mg/dL (70-100); POTASSIUM 3.8 mEq/L (3.5-5.2); SODIUM 134 mEq/L (134-144)
[2017-03-03] MEDS: MIDODRINE HCL 5 MG TAB PO SCH ×3 (09:08→18:34)
[2017-03-03] MEDS: AMIODARONE HCL 200 MG TAB PO SCH (09:09)
[2017-03-03] MEDS: FAMOTIDINE 20 MG TAB PO SCH (09:10)
[2017-03-03] MEDS: LIDOCAINE 5% 1 EA PATCH TD SCH (09:17)
--- NOTE | 2017-03-03 09:49 | WOCRNPDOC ---
WOCRN Advanced Assessment Note - Skin Integrity Problem, Advanced Assess Left Abdomen Dressing Type: Allevyn Life Dressing Description: Clean/Dry, Intact Exudate Amount: None Exudate Color: Brown Exudate Characteristic(s): Dried Integumentary Issue Intervention: Visualized Under Dressing Charity Wound Tissue: Intact Charity Wound Swelling: None Wound Bed Color: Brown Wound Bed Constitution: Scab Site Measurement - Head-to-Toe Length X Width X Depth (cm): Proximal: 0.7cmx0.9cmx scab; distal: 0.4cmx0.5cmx scab Skin Integrity Problem Comment: Two discrete, scabbed sites noted on L abdomen r /t lap procedure. Charity-wound tissue is intact w/ no associated swelling or erythema. Recommend keeping sites covered and continuing w/ wound gel and Allevyn until sites healed. Wound care does not need to follow these wounds going forward. Please reconsult on these, or any other wounds, PRN.
--- NOTE | 2017-03-03 11:17 | SOAPPROG ---
SOAP Progress Note Assessment/Plan: Assessment: Improving. Wean HD per renal, plan LTAC this week if stable. D/w patient and family. 03/01/17 13:54 03/02/17 18:12 03/03/17 11:15 Subjective: Patient c/o back pain. Abd pain improved, no N/V. Objective: Vital Signs Temp Pulse Resp BP Pulse Ox 37.1 C 106 H 16 120/55 L 93 03/03/17 08:00 03/03/17 08:00 03/03/17 08:00 03/03/17 08:00 03/03/17 08:00 Laboratory Results 03/03/17 05:10 03/03/17 05:10 03/02/17 03/03/17 03/04/17 05:59 05:59 05:59 Intake Total 450 250 Output Total 800 490 100 Balance -350 -240 -100 PT 16.8 SEC (12.0-15.0) H 02/21/17 08:45 INR 1.36 (0.83-1.16) H 02/21/17 08:45 Alert, NAD Abd soft, NTTP PEG site without erythema Inc without erythema Ostomy functioning. ICD10 Worksheet Patient Problems: Problems Problem Status Onset Atrial fibrillation Acute Diverticulitis Acute MRSA (methicillin resistant Staphylococcus aureus) Acute ~02/08/17 - ICD10 Problem Qualifiers (1) Diverticulitis Qualifiers: Diverticulitis site: D Diverticulitis bleeding: D Diverticulitis complication: D
[2017-03-03] MEDS ORDERED: K PHOS 10 MMOL in D5W 250 ML IV ONE (12:00)
--- NOTE | 2017-03-03 13:15 | HOSPPROG ---
Hospitalist Progress Note Assessment/Plan: 72 y/o female new to my care 02/27/17 Peg tube placed by IR 03/01 # s/p sepsis due to peritionitis from anastamotic leak, following lap surg for diverticular disease with persistent leukocytosis -bacteroides in blood cxs, suspect multibacterial bowel pathogens s/p 3 weeks of iv zosyn continue to monitor off abx # acute renal failure due to above still oliguric -continues on hemodialysis - feldman placed 02/27 due to urinary retention # acute resp failure, reintubation x 2 -currently doing well on nc o2 # s/p pea cardiac arrest, likely caused by anemia and acute respiratory insufficiency # acute encephalopathy due to above (improving) -continues slow improvement, but remains very lethargic, not very conversant , not eating well # spontaneous retroperitoneal bleed on anticoag / post hemorrhagic anemia, s/p transfusion and embolization of several vessels in interventional radiology -almaz drain in place still with modest amount of blood in drain which appears probably old # acute hepatitis likely due to hypoperfusion -continues to slowly resolve # a fib, rapid v rate - will need to be off anticoag due to hemorrhage # s/p lll pneumonia, stenotrophomonas from sputum cultures # severe deconditioning and malnutrition -continues work w pt and ot, does cooperate for this work - start tube feeds today # s/p laparoscopic surgery for diverticular disease; s/p intraabdominal hemorrhage and surgical exploration/clot evacuation dispo: dc to ltac later this week once cleared by surgery Subjective: improving confusion. reports pain over peg tube site. no other acute complaints Objective: Vital Signs Temp Pulse Resp BP Pulse Ox 36.8 C 110 H 18 127/54 H 89 L 03/03/17 12:00 03/03/17 12:00 03/03/17 12:00 03/03/17 12:00 03/03/17 12:00 Laboratory Results 03/03/17 05:10 03/03/17 05:10 03/02/17 03/03/17 03/04/17 05:59 05:59 05:59 Intake Total 450 250 Output Total 800 490 100 Balance -350 -240 -100 PT 16.8 SEC (12.0-15.0) H 02/21/17 08:45 INR 1.36 (0.83-1.16) H 02/21/17 08:45 - Physical Exam Constitutional: chronically ill appearing Cardiovascular: regular rate and rhythym, no murmur, rub, or gallop Respiratory: no respiratory distress, no rales or rhonchi, clear to auscultation , reduced air movement Gastrointestinal: normoactive bowel sounds, soft, non-tender abdomen, no palpable masses, No guarding, No rebound Neurologic: AAOx3, CN II-XII Intact, No facial droop ICD10 Worksheet Patient Problems: Problems Problem Status Onset MRSA (methicillin resistant Staphylococcus aureus) Acute ~02/08/17 Atrial fibrillation Acute Diverticulitis Acute
[2017-03-03] MEDS: METOPROLOL TARTRATE 25 MG TAB PO SCH ×2 (16:14→21:43)
--- NOTE | 2017-03-03 17:19 | SOAPPROG ---
SOAP Progress Note Assessment/Plan: Assessment: 1. NANCY. Ischemic due to cardiac arrest. Tunneled dialysis catheter placed. Still oliguric. Still anticipate eventual recovery. HD on TTS schedule. 2. Malnutrition. To have eval of PEG today. 3. Low phos. Should resolve once established on tube feeds. Will give dose of NaPhos today since will dialyze again tomorrow. 4. Dispo. Possibly to LTAC later this week. Plan: 03/03/17 17:21 Subjective: Had dialysis yesterday. Has felt wiped out all day today. PEG tube did not interface well when TFs hooked up. Objective: Vital Signs Temp Pulse Resp BP Pulse Ox 36.6 C 80 18 120/55 L 89 L 03/03/17 14:32 03/03/17 16:14 03/03/17 14:32 03/03/17 16:14 03/03/17 14:32 Laboratory Results 03/03/17 05:10 03/03/17 05:10 03/02/17 03/03/17 03/04/17 05:59 05:59 05:59 Intake Total 450 250 Output Total 800 490 100 Balance -350 -240 -100 PT 16.8 SEC (12.0-15.0) H 02/21/17 08:45 INR 1.36 (0.83-1.16) H 02/21/17 08:45 Tired but awake, cheerful No sclericterus Tachy, RRR, no m/g/r CTAB Abdom soft, nontender No edema PEG tube in place, bandaged ICD10 Worksheet Patient Problems: Problems Problem Status Onset MRSA (methicillin resistant Staphylococcus aureus) Acute ~02/08/17 Atrial fibrillation Acute Diverticulitis Acute
[2017-03-03] MEDS ORDERED: IOPAMIDOL (ISOVUE-300) 100 ML BTL ONE (17:57)
[2017-03-03] MEDS: MELATONIN 3 MG TAB PO SCH (21:43)
[2017-03-04] MEDS: HYDROmorphONE/DILAUDID 2 MG TAB PO PRN ×4 (03:02→21:20)
[2017-03-04] MEDS: HEPARIN 5,000 UNIT/0.5 ML SYR SC SCH ×3 (05:16→21:20)
[2017-03-04 05:49] LABS: ALBUMIN 2.4 g/dL (3.5-5.0); ANION GAP 7 mEq/L (8-16); CALCIUM 9.9 mg/dL (8.5-10.4); CARBON DIOXIDE 24 mEq/l (22-31); CHLORIDE 102 mEq/L (97-110); CREATININE 2.3 mg/dL (0.6-1.0); GLOMERULAR FILTRATION RATE 21; GLUCOSE 109 mg/dL (70-100); SODIUM 133 mEq/L (134-144)
[2017-03-04] MEDS: LIDOCAINE 5% 1 EA PATCH TD SCH (09:16)
[2017-03-04] MEDS: MIDODRINE HCL 5 MG TAB PO SCH ×3 (09:19→16:01)
[2017-03-04] MEDS: AMIODARONE HCL 200 MG TAB PO SCH (09:21)
[2017-03-04] MEDS: FAMOTIDINE 20 MG TAB PO SCH (09:21)
[2017-03-04] MEDS: METOPROLOL TARTRATE 25 MG TAB PO SCH ×2 (11:19→21:20)
--- NOTE | 2017-03-04 14:26 | SOAPPROG ---
SOAP Progress Note Assessment/Plan: Assessment: Improving. Likely transfer to LTAC tomorrow. D/w patient and . 03/01/17 13:54 03/02/17 18:12 03/03/17 11:15 03/04/17 14:24 Subjective: Pt c/o back pain, also per RN some hypotension after dialysis. Objective: Vital Signs Temp Pulse Resp BP Pulse Ox 36.4 C 113 H 16 131/60 H 92 03/04/17 11:41 03/04/17 11:41 03/04/17 11:41 03/04/17 11:41 03/04/17 11:41 Laboratory Results 03/03/17 05:10 03/04/17 05:15 03/03/17 03/04/17 03/05/17 05:59 05:59 05:59 Intake Total 250 570 Output Total 490 300 250 Balance -240 270 -250 PT 16.8 SEC (12.0-15.0) H 02/21/17 08:45 INR 1.36 (0.83-1.16) H 02/21/17 08:45 Rousable, NAD BP 112/68 Abd soft, NTTP PEG site, inc without erythema Ostomy viable ICD10 Worksheet Patient Problems: Problems Problem Status Onset Atrial fibrillation Acute Diverticulitis Acute MRSA (methicillin resistant Staphylococcus aureus) Acute ~02/08/17 - ICD10 Problem Qualifiers (1) Diverticulitis Qualifiers: Diverticulitis site: D Diverticulitis bleeding: D Diverticulitis complication: D
--- NOTE | 2017-03-04 15:11 | HOSPPROG ---
Hospitalist Progress Note Assessment/Plan: # s/p sepsis due to peritionitis from anastamotic leak, following lap surg for diverticular disease with persistent leukocytosis -bacteroides in blood cxs, suspect multibacterial bowel pathogens s/p 3 weeks of iv zosyn continue to monitor off abx # acute renal failure due to above still oliguric -continues on hemodialysis - feldman placed 02/27 due to urinary retention # acute resp failure, reintubation x 2 -currently doing well on nc o2 # s/p pea cardiac arrest, likely caused by anemia and acute respiratory insufficiency # acute encephalopathy due to above (improving) -continues slow improvement, but remains very lethargic, not very conversant , not eating well # spontaneous retroperitoneal bleed on anticoag / post hemorrhagic anemia, s/p transfusion and embolization of several vessels in interventional radiology -almaz drain in place still with modest amount of blood in drain which appears probably old # acute hepatitis likely due to hypoperfusion -continues to slowly resolve # a fib, rapid v rate - will need to be off anticoag due to hemorrhage # s/p lll pneumonia, stenotrophomonas from sputum cultures # severe deconditioning and malnutrition -continues work w pt and ot, does cooperate for this work - start tube feeds today # s/p laparoscopic surgery for diverticular disease; s/p intraabdominal hemorrhage and surgical exploration/clot evacuation dispo: dc to ltac tomorrow Subjective: Little groggy after dialysis. Some back pain. Objective: Vital Signs Temp Pulse Resp BP Pulse Ox 36.4 C 113 H 16 131/60 H 92 03/04/17 11:41 03/04/17 11:41 03/04/17 11:41 03/04/17 11:41 03/04/17 11:41 Laboratory Results 03/03/17 05:10 03/04/17 05:15 03/03/17 03/04/17 03/05/17 05:59 05:59 05:59 Intake Total 250 570 Output Total 490 300 250 Balance -240 270 -250 PT 16.8 SEC (12.0-15.0) H 02/21/17 08:45 INR 1.36 (0.83-1.16) H 02/21/17 08:45 - Physical Exam Constitutional: no apparent distress, appears nourished, not in pain Eyes: anicteric sclera, EOMI Ears, Nose, Mouth, Throat: moist mucous membranes, hearing normal Cardiovascular: regular rate and rhythym Respiratory: no respiratory distress Gastrointestinal: normoactive bowel sounds, soft, non-tender abdomen, no palpable masses Skin: warm Neurologic: AAOx3, other ( Somewhat groggy but responsive) ICD10 Worksheet Patient Problems: Problems Problem Status Onset Atrial fibrillation Acute Diverticulitis Acute MRSA (methicillin resistant Staphylococcus aureus) Acute ~02/08/17
--- NOTE | 2017-03-04 15:21 | SOAPPROG ---
SOAP Progress Note Assessment/Plan: Assessment: NANCY requiring renal replacement therapy sepsis due to anastamotic leak after sigmoid colectomy hypotension, back in bed today after hypotension on HD today Plan: HD today, some hypotension continue midodrine likely to [facility] soon continue TF 03/04/17 15:13 Subjective: tired no cp sob nausea or vomiting appetite not great,spirits pretty good today at bedside, all questions answered Objective: Vital Signs Temp Pulse Resp BP Pulse Ox 36.4 C 113 H 16 131/60 H 92 03/04/17 11:41 03/04/17 11:41 03/04/17 11:41 03/04/17 11:41 03/04/17 11:41 Laboratory Results 03/03/17 05:10 03/04/17 05:15 03/03/17 03/04/17 03/05/17 05:59 05:59 05:59 Intake Total 250 570 Output Total 490 300 250 Balance -240 270 -250 PT 16.8 SEC (12.0-15.0) H 02/21/17 08:45 INR 1.36 (0.83-1.16) H 02/21/17 08:45 Physical Exam - Physical Exam General Appearance: alert, other (chronically ill appearing) Respiratory: No rhonchi, No wheezing Cardiac/Chest: regular rate, rhythm (tr edema), No friction rub Abdomen: non-tender, soft Skin: warm/dry Neuro/Psych: alert, oriented x 3 ICD10 Worksheet Patient Problems: Problems Problem Status Onset Atrial fibrillation Acute Diverticulitis Acute MRSA (methicillin resistant Staphylococcus aureus) Acute ~02/08/17
[2017-03-04] MEDS ORDERED: HEPARIN 50,000 UNIT/10 ML VIAL ONE (18:26)
[2017-03-04] MEDS: MELATONIN 3 MG TAB PO SCH (21:20)
[2017-03-04] MEDS: PATCH REMOVAL 1 EA PATCH TD SCH (23:55)
[2017-03-05] MEDS: HEPARIN 5,000 UNIT/0.5 ML SYR SC SCH (05:06)
[2017-03-05 05:27] LABS: % IMMATURE GRANULYOCYTES 1.4 % (0.0-1.1); ABSOLUTE IMMATURE GRANULOCYTES 0.23 10^3/uL (0.00-0.10); ABSOLUTE NRBC COUNT 0.02 10^3/uL (0-0.01); ADD DIFF? NO; ADD MORPH? NO; ADD SCAN? NO; ATYPICAL LYMPHOCYTE FLAG 0 (0-99); FRAGMENT RBC FLAG 0 (0-99); HEMATOCRIT 25.5 % (38.0-47.0); HEMOGLOBIN 7.9 g/dL (12.6-16.3); LEFT SHIFT FLG 20 (0-99); LIPEMIA HEMOLYSIS FLAG 80 (0-99); MEAN CELL HEMOGLOBIN 30.9 pg (27.9-34.1); MEAN CELL VOLUME 99.6 fL (81.5-99.8); MEAN PLATELET VOLUME 10.4 fL (8.7-11.7); NRBC-AUTO% 0.1 % (0.0-0.2); PLATELET CLUMPS FLAG 10 (0-99); PLATELET COUNT 141 10^3/uL (150-400); RED BLOOD CELL COUNT 2.56 10^6/uL (4.18-5.33); RED CELL DISTRIBUTION WIDTH 17.8 % (11.5-15.2)
[2017-03-05 05:40] LABS: ALBUMIN 2.4 g/dL (3.5-5.0); ANION GAP 6 mEq/L (8-16); CALCIUM 9.2 mg/dL (8.5-10.4); CARBON DIOXIDE 28 mEq/l (22-31); CHLORIDE 99 mEq/L (97-110); CREATININE 1.6 mg/dL (0.6-1.0); GLOMERULAR FILTRATION RATE 32; GLUCOSE 99 mg/dL (70-100); POTASSIUM 3.7 mEq/L (3.5-5.2); SODIUM 133 mEq/L (134-144)
[2017-03-05] MEDS: LIDOCAINE 5% 1 EA PATCH TD SCH (07:51)
[2017-03-05] MEDS: MIDODRINE HCL 5 MG TAB PO SCH ×2 (07:52→13:40)
--- NOTE | 2017-03-05 09:03 | SOAPPROG ---
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 Was tachy earlier this am, better now. Denies sob. On tube feeds. Objective: Vital Signs Temp Pulse Resp BP Pulse Ox 36.4 C 102 H 20 101/56 L 90 L 03/05/17 08:00 03/05/17 08:00 03/05/17 08:00 03/05/17 08:00 03/05/17 08:00 Laboratory Results 03/05/17 05:10 03/05/17 05:10 03/04/17 03/05/17 03/06/17 05:59 05:59 05:59 Intake Total 570 840 Output Total 300 490 Balance 270 350 PT 16.8 SEC (12.0-15.0) H 02/21/17 08:45 INR 1.36 (0.83-1.16) H 02/21/17 08:45 Physical Exam - Physical Exam General Appearance: alert, no apparent distress EENT: other Respiratory: lungs clear (ant bilat) Cardiac/Chest: regular rate, rhythm Abdomen: non-tender, other (Ostomy with brown stool) Skin: warm/dry Extremities: other (+edema bilat LE) Neuro/Psych: alert (follows commands) ICD10 Worksheet Patient Problems: Problems Problem Status Onset Atrial fibrillation Acute Diverticulitis Acute MRSA (methicillin resistant Staphylococcus aureus) Acute ~02/08/17
[2017-03-05] MEDS: AMIODARONE HCL 200 MG TAB PO SCH (09:19)
[2017-03-05] MEDS: FAMOTIDINE 20 MG TAB PO SCH (09:19)
--- NOTE | 2017-03-05 09:22 | PDIAF ---
- Diagnosis Diagnosis: diverticulitis Code Status: Full Code - Medication Management Discharge Medications: Medications to Continue on Transfer Famotidine [Pepcid 20 MG (*)] 20 mg PO DAILY #0 tab 03/05/17 [Last Taken Unknown ] Gabapentin [Neurontin 100 MG (*)] 100 mg PO TID cap 03/05/17 [Last Taken Unknown] HYDROmorphone HCL [Dilaudid 2 mg (*)] 1 - 2 mg PO Q4HRS PRN #0 tab 03/05/17 [ Last Taken Unknown] Heparin [Heparin SC 5000 unit/0.5 ml (*)] 5,000 unit SC Q8HRS syr 03/05/17 [ Last Taken Unknown] Lidocaine 5% [Lidoderm 5% Patch (*)] 1 ea TD DAILY patch 03/05/17 [Last Taken Unknown] Melatonin [Melatonin 3 MG (*)] 3 mg PO HS tab 03/05/17 [Last Taken Unknown] Metoprolol Tartrate [Lopressor 25 mg (*)] 12.5 mg PO BID tab 03/05/17 [Last Taken Unknown] Midodrine HCl [Proamatine/Midodrin] 2.5 mg PO TID@0800,1200,1600 tab 03/05/17 [ Last Taken Unknown] Discharge Medications: Refer to the Discharge Home Medication list for PRN reason. - Orders Tube feeding: Nepro 1.8 45 cc/hr. Free water flushes 250cc q6 - Follow Up Care Current Providers and Referrals: Rhona Bowman MD [Primary Care Provider] -
[2017-03-05] MEDS: METOPROLOL TARTRATE 25 MG TAB PO SCH (09:24)
[2017-03-05 11:26] VITALS: BP 116/67; PULSE 110; RESP 18; TEMP 98; O2SAT 97
[2017-03-05] MEDS ORDERED: POTASSIUM/SODIUM PHOSPHATE 1 PKT PO ONE (11:36)
[2017-03-05] MEDS: HYDROmorphONE/DILAUDID 2 MG TAB PO PRN (11:41)
[2017-03-05] MEDS ORDERED: NS 250 ML IV ONE (12:30)
--- NOTE | 2017-03-05 12:39 | SOAPPROG ---
SOAP Progress Note Assessment/Plan: Assessment: Stable, BP/HR responsive to fluid, likely need to increase maintenance. Try gabapentin for back pain. Poss transfer to LTAC, reviewed with patient and . 03/01/17 13:54 03/02/17 18:12 03/03/17 11:15 03/04/17 14:24 03/05/17 12:36 03/05/17 12:38 Subjective: Patient c/o back and LLE pain. No N/V. OOB to chair today. Objective: Vital Signs Temp Pulse Resp BP Pulse Ox 36.7 C 110 H 18 116/67 97 03/05/17 11:25 03/05/17 11:25 03/05/17 11:25 03/05/17 11:25 03/05/17 11:25 Laboratory Results 03/05/17 05:10 03/05/17 05:10 03/04/17 03/05/17 03/06/17 05:59 05:59 05:59 Intake Total 570 840 Output Total 300 490 Balance 270 350 PT 16.8 SEC (12.0-15.0) H 02/21/17 08:45 INR 1.36 (0.83-1.16) H 02/21/17 08:45 Alert, NAD Abd soft, NTTP PEG OK Inc without erythema Ostomy productive. ICD10 Worksheet Patient Problems: Problems Problem Status Onset Atrial fibrillation Acute Diverticulitis Acute MRSA (methicillin resistant Staphylococcus aureus) Acute ~02/08/17 - ICD10 Problem Qualifiers (1) Diverticulitis Qualifiers: Diverticulitis site: D Diverticulitis bleeding: D Diverticulitis complication: D
[2017-03-05] MEDS ORDERED: GABAPENTIN 100 MG CAP PO ONE (14:30)
[2017-03-05] MEDS ORDERED: GABAPENTIN 100 MG CAP PO SCH (16:00)
== END 2017-03-05 15:10 | DRG 329 ==
LOC: F3E 08:47 → EEVIPCON 08:47 → F3E 18:21 → F2N 01-07 16:21 → F3E 02-13 18:13 → UNDODISIN 03-05 15:13
PROVIDERS: ADMIT Surgery; ATTEND Surgery
PROC: 8E0W8CZ Robotic Assisted Procedure of Trunk Region, Via Natural or Artificial Opening Endoscopic (ICD-10-PCS; principal; 2017-01-04 11:00)
PROC: 0DBN4ZZ Excision of Sigmoid Colon, Percutaneous Endoscopic Approach (ICD-10-PCS; principal; 2017-01-04 11:00)
PROC: 0WJG4ZZ Inspection of Peritoneal Cavity, Percutaneous Endoscopic Approach (ICD-10-PCS; 2017-01-07 17:00)
PROC: 0D1B0Z4 Bypass Ileum to Cutaneous, Open Approach (ICD-10-PCS; 2017-01-07 17:00)
PROC: 0WCG0ZZ Extirpation of Matter from Peritoneal Cavity, Open Approach (ICD-10-PCS; 2017-01-07 17:00)
PROC: 5A1955Z Respiratory Ventilation, Greater than 96 Consecutive Hours (ICD-10-PCS; 2017-01-09)
PROC: 0BH18EZ Insertion of Endotracheal Airway into Trachea, Via Natural or Artificial Opening Endoscopic (ICD-10-PCS; 2017-01-09)
PROC: 0DH67UZ Insertion of Feeding Device into Stomach, Via Natural or Artificial Opening (ICD-10-PCS; 2017-01-12)
PROC: 3E0G76Z Introduction of Nutritional Substance into Upper GI, Via Natural or Artificial Opening (ICD-10-PCS; 2017-01-13)
PROC: 02HV33Z Insertion of Infusion Device into Superior Vena Cava, Percutaneous Approach (ICD-10-PCS; 2017-01-13)
PROC: 0BH18EZ Insertion of Endotracheal Airway into Trachea, Via Natural or Artificial Opening Endoscopic (ICD-10-PCS; 2017-01-18)
PROC: 5A1945Z Respiratory Ventilation, 24-96 Consecutive Hours (ICD-10-PCS; 2017-01-18)
PROC: 0B918ZZ Drainage of Trachea, Via Natural or Artificial Opening Endoscopic (ICD-10-PCS; 2017-01-18)
PROC: 3E1F88X Irrigation of Respiratory Tract using Irrigating Substance, Via Natural or Artificial Opening Endoscopic, Diagnostic (ICD-10-PCS; 2017-01-18)
PROC: 3E1F88Z Irrigation of Respiratory Tract using Irrigating Substance, Via Natural or Artificial Opening Endoscopic (ICD-10-PCS; 2017-01-19)
PROC: 0B918ZZ Drainage of Trachea, Via Natural or Artificial Opening Endoscopic (ICD-10-PCS; 2017-01-19)
PROC: 0DH67UZ Insertion of Feeding Device into Stomach, Via Natural or Artificial Opening (ICD-10-PCS; 2017-01-19)
PROC: 3E0G76Z Introduction of Nutritional Substance into Upper GI, Via Natural or Artificial Opening (ICD-10-PCS; 2017-01-19)
PROC: 0B918ZZ Drainage of Trachea, Via Natural or Artificial Opening Endoscopic (ICD-10-PCS; 2017-01-20)
PROC: 3E1F88Z Irrigation of Respiratory Tract using Irrigating Substance, Via Natural or Artificial Opening Endoscopic (ICD-10-PCS; 2017-01-20)
PROC: 5A1955Z Respiratory Ventilation, Greater than 96 Consecutive Hours (ICD-10-PCS; 2017-01-25)
PROC: 0BH18EZ Insertion of Endotracheal Airway into Trachea, Via Natural or Artificial Opening Endoscopic (ICD-10-PCS; 2017-01-25)
PROC: 3E0436Z Introduction of Nutritional Substance into Central Vein, Percutaneous Approach (ICD-10-PCS; 2017-01-26)
PROC: 5A1D60Z (ICD-10-PCS; 2017-01-26)
PROC: 02HV33Z Insertion of Infusion Device into Superior Vena Cava, Percutaneous Approach (ICD-10-PCS; 2017-01-26)
PROC: 04L03DZ Occlusion of Abdominal Aorta with Intraluminal Device, Percutaneous Approach (ICD-10-PCS; 2017-01-26)
PROC: 04L03DZ Occlusion of Abdominal Aorta with Intraluminal Device, Percutaneous Approach (ICD-10-PCS; 2017-01-29)
PROC: B414ZZZ Fluoroscopy of Superior Mesenteric Artery (ICD-10-PCS; 2017-01-29)
PROC: B41 Imaging, Lower Arteries, Fluoroscopy (ICD-10-PCS; 2017-01-29)
PROC: 0B968ZZ Drainage of Right Lower Lobe Bronchus, Via Natural or Artificial Opening Endoscopic (ICD-10-PCS; 2017-02-08)
PROC: 0B9B8ZZ Drainage of Left Lower Lobe Bronchus, Via Natural or Artificial Opening Endoscopic (ICD-10-PCS; 2017-02-08)
PROC: 3E1F88X Irrigation of Respiratory Tract using Irrigating Substance, Via Natural or Artificial Opening Endoscopic, Diagnostic (ICD-10-PCS; 2017-02-08)
PROC: 02HV33Z Insertion of Infusion Device into Superior Vena Cava, Percutaneous Approach (ICD-10-PCS; 2017-02-10)
PROC: 0W9H30Z Drainage of Retroperitoneum with Drainage Device, Percutaneous Approach (ICD-10-PCS; 2017-02-21)
PROC: 0DJ08ZZ Inspection of Upper Intestinal Tract, Via Natural or Artificial Opening Endoscopic (ICD-10-PCS; 2017-02-28)
DX: K57.32 Diverticulitis of large intestine without perforation or abscess without bleeding (principal); K91.870 Postprocedural hematoma of a digestive system organ or structure following a digestive system procedure; K91.89 Other postprocedural complications and disorders of digestive system; A41.9 Sepsis, unspecified organism; R65.21 Severe sepsis with septic shock; K65.9 Peritonitis, unspecified; J15.8 Pneumonia due to other specified bacteria; D62 Acute posthemorrhagic anemia; N17.1 Acute kidney failure with acute cortical necrosis; N17.8 Other acute kidney failure; I48.1 Persistent atrial fibrillation; I11.9 Hypertensive heart disease without heart failure; Z53.31 Laparoscopic surgical procedure converted to open procedure; J96.01 Acute respiratory failure with hypoxia; E87.0 Hyperosmolality and hypernatremia; N25.1 Nephrogenic diabetes insipidus; G92 Toxic encephalopathy; R58 Hemorrhage, not elsewhere classified; I46.8 Cardiac arrest due to other underlying condition; E87.2 Acidosis; K72.00 Acute and subacute hepatic failure without coma; D65 Disseminated intravascular coagulation [defibrination syndrome]; J90 Pleural effusion, not elsewhere classified; I45.10 Unspecified right bundle-branch block; E66.01 Morbid (severe) obesity due to excess calories; E87.1 Hypo-osmolality and hyponatremia; E46 Unspecified protein-calorie malnutrition; Z68.41 Body mass index [BMI] 40.0-44.9, adult; E87.5 Hyperkalemia; M54.9 Dorsalgia, unspecified; R33.9 Retention of urine, unspecified
CPT/HCPCS: 82947-QW; 83010-90; 85520-90; 86022-90; 86704-90; 92526-GN; 92610-GN; 97110-GP; 97162-GP; 97164-GP; 97167-GO; 97168-GO; 97530-GO; 97530-GP; 97535-GO; A9537; C1729; C1750; C1751; C1760; C1769; C1894; G8978-GP-CM; G8979-GP-CJ; G8979-GP-CK; G8979-GP-CL; G8980-GP-CL; G8980-GP-CM; G8987-GO-CM; G8987-GO-CN; G8988-GO-CK; G8988-GO-CM; G8989-GO-CM; G8996-GN-CK; G8996-GN-CL; G8997-GN-CI; G8998-GN-CI; J0282; J0461; J0610; J0694; J0697; J1100; J1160; J1170; J1200; J1335; J1610; J1644; J1650; J1815; J1885; J1940; J2060; J2248; J2250; J2405; J2543; J2704; J2997; J3010; J3370; J3475; P9016; P9017; P9021; P9035; P9041; P9047; Q9967